=== PATIENT | female | born 1950 | race African-American/Black ===

== ENCOUNTER 2016-12-02 05:30 | Inpatient (IN) | payer OTHER ==
[2016-12-02] VITALS (25 sets, daily range): BP systolic 105–143; BP diastolic 54–85; PULSE 68–94; RESP 12–27; Ht 165.1 cm; Wt 95.5 kg
[~2016-12-02] VITALS: Ht 165.1 cm; Wt 95.5 kg
[~2016-12-02 05:30] MED LIST: AMIT100T2 PO; FLUO40CA10; INSU100I28; INSU100V18 SQ; [UNRECOGNIZED DRUG - REMARK]
[2016-12-02] MEDS ORDERED: HYDROmorphONE 1 MG/ML SYG IV STA (05:42)
[2016-12-02] MEDS ORDERED: ONDANSETRON 4 MG INJ IV STA (05:42)
[2016-12-02 06:10] LABS: ADD SCAN DIFF NO
[2016-12-02 06:16] LABS: BASOPHIL # 0.1 10^3/ul (0.0-0.1); EOSINOPHILS # 0.1 10^3/ul (0.0-0.5); HEMATOCRIT 41.7 % (37.0-47.0); HEMOGLOBIN 14.1 g/dl (12.0-16.0); LYMPHOCYTES # 2.7 10^3/ul (0.8-2.9); LYMPHOCYTES % 31.6 % (15.0-51.0); MEAN CORPUSCULAR HEMOGLOBIN 29.3 pg (29.0-33.0); MEAN CORPUSCULAR HGB CONC 33.8 g/dl (32.0-37.0); MEAN CORPUSCULAR VOLUME 86.7 fl (82.0-101.0); MEAN PLATELET VOLUME 9.9 fl (7.4-10.4); MONOCYTE # 0.5 10^3/ul (0.3-0.9); MONOCYTES % 6.1 % (0.0-11.0); NEUTROPHIL # 5.1 10^3/ul (1.6-7.5); NEUTROPHILS % 60.1 % (39.0-77.0); PLATELET COUNT 353 10^3/UL (140-415); RED BLOOD COUNT 4.81 10^6/ul (4.20-5.40); RED CELL DISTRIBUTION WIDTH 12.7 % (11.5-14.5); WHITE BLOOD COUNT 8.4 10^3/ul (4.8-10.8)
--- NOTE | 2016-12-02 06:16 | RADRPT ---
PROCEDURE: XR Chest. CLINICAL INDICATION: Chest Pain. TECHNIQUE: Portable single view of the chest COMPARISON: 11/03/2007 FINDINGS: The heart size is top normal with left ventricular prominence. Chronic calcification of the first r ib ends again seen. No acute infiltrate, pleural effusion, or significant edema. IMPRESSION: No definite acute disease. RPTAT: HLBE Claire Abel Physician Date Time Electronically viewed and signed by Claire Abel, Physician on 12/02/2016 06:16 GIAN/
[2016-12-02 06:23] LABS: INR 0.92; PROTIME 12.4 Sec (12.2-14.2)
[2016-12-02 06:24] LABS: PARTIAL THROMBOPLASTIN TIME 25.7 Sec (25.0-35.0)
[2016-12-02 06:25] LABS: ALBUMIN 3.4 g/dl (3.3-4.9); POTASSIUM 3.5 mmol/L (3.5-5.1)
[2016-12-02 06:27] LABS: BILIRUBIN,INDIRECT 0.2 mg/dl (0-1.1); BILIRUBIN,TOTAL 0.2 mg/dl (0.2-1.3); CREATININE 0.61 mg/dl (0.44-1.00)
[2016-12-02 06:28] LABS: ALBUMIN/GLOBULIN RATIO 1.06; TOTAL PROTEIN 6.6 g/dl (6.1-8.1)
[2016-12-02 06:42] LABS: TROPONIN-I 0.256 ng/ml (0.00-0.12)
[2016-12-02] MEDS ORDERED: ASPIRIN 325 MG TAB PO STA (06:42)
[2016-12-02] MEDS ORDERED: NITROGLYCERIN 2% 1 GM OINT PKT TD STA (06:42)
[2016-12-02] MEDS ORDERED: ENOXAPARIN 80 MG/0.8 ML SYG SC STA (06:42)
--- NOTE | 2016-12-02 06:55 | ERA ---
ER Documentation Chief Complaint Date/Time DATE: 12/02/16 TIME: 06:50 Chief Complaint left breast pain radiates to back x 3 days HPI This 66-year-old diabetic, hypertensive, high cholesterol, smoker who is complaining of 3 days of off and on the left breast pain that radiates to her left back and also radiates up her neck into both jaws. She has no pain currently. She gets no shortness of breath no diaphoresis no palpitations no nausea no weakness no syncope. When the pain comes the pain can last between 5 and 30 minutes. Is not brought on by anything and not relieved by anything. The pain is described as a pressure sensation ROS All systems reviewed and are negative except as per history of present illness. Medications Home Meds Reported Medications [Meds Current] No Conflict Check 02/27/12 Insulin Lispro (Humalog) 100 U/Ml Vial, 24 UNITS SQ TID 04/01/11 Amitriptyline Hcl* (Amitriptyline Hcl*) 100 Mg Tablet, 100 MG PO HS 04/01/11 Insulin Detemir* (Levemir*) 100 U/Ml Insuln.pen 03/12/11 Fluoxetine Hcl* (Prozac*) 40 Mg Capsule 12/14/09 Allergies Allergies: Coded Allergies: No Known Allergy (Verified , 02/27/12) PMhx/Soc History of Surgery: Yes (BREAST REDUCTION, RT FOOT, BACK/NECK, SHOULDER) Anesthesia Reaction: No Hx Neurological Disorder: No Hx Respiratory Disorders: No Hx Cardiac Disorders: No Hx Psychiatric Problems: Yes (DEPRESSION) Hx Miscellaneous Medical Probl: Yes ("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 Neck: Full range of motion. No meningismus, no lymphadenopathy. Resp: Clear to auscultation bilaterally, no wheezing, rhonchi, rales Cardio: Regular rate and rhythm, no murmurs, S1 S2 present Abd: Soft, non tender x 4, non distended. Normal bowel sounds, no guarding or rebound, no pulsitile abdominal masses or bruits Skin: No petechiae or rashes, no ecchymosis , no maculopapular rash Back: No midline or flank tenderness Ext: No cyanosis, or edema, FROM x 4, normal inspection, neurovascularly intact x 4 Neur: Awake and alert, STR 5/5 x 4, sensation intact x 4, no focal findings, cerebellum intact Psych: Normal Mood and Affect Result Diagram: 12/02/16 0550 12/02/16 0550 Results 24 hrs Laboratory Tests Test 12/02/16 05:50 Activated Partial Thromboplast Time 25.7Sec Alanine Aminotransferase (ALT/SGPT) 25IU/L Albumin 3.4g/dl Albumin/Globulin Ratio 1.06 Alkaline Phosphatase 115IU/L Anion Gap 15 Aspartate Amino Transf (AST/SGOT) 28IU/L B-Type Natriuretic Peptide 882PG/ML Basophils # 0.110^3/ul Basophils % 1.0% Blood Urea Nitrogen 10mg/dl Calcium Level 9.0mg/dl Carbon Dioxide Level 29mmol/L Chloride Level 104mmol/L Creatinine 0.61mg/dl Direct Bilirubin 0.00mg/dl Eosinophils # 0.110^3/ul Eosinophils % 1.0% Globulin 3.20g/dl Glucose Level 242mg/dl Hematocrit 41.7% Hemoglobin 14.1g/dl INR International Normalized Ratio 0.92 Indirect Bilirubin 0.2mg/dl Lymphocytes # 2.710^3/ul Lymphocytes % 31.6% Mean Corpuscular Hemoglobin 29.3pg Mean Corpuscular Hemoglobin Concent 33.8g/dl Mean Corpuscular Volume 86.7fl Mean Platelet Volume 9.9fl Monocytes # 0.510^3/ul Monocytes % 6.1% Neutrophils # 5.110^3/ul Neutrophils % 60.1% Nucleated Red Blood Cells # 0.010^3/ul Nucleated Red Blood Cells % 0.0/100WBC Platelet Count 77745^3/UL Potassium Level 3.5mmol/L Prothrombin Time 12.4Sec Prothrombin Time Ratio 1.0 Red Blood Count 4.8110^6/ul Red Cell Distribution Width 12.7% Sodium Level 144mmol/L Total Bilirubin 0.2mg/dl Total Protein 6.6g/dl Troponin I 0.256ng/ml White Blood Count 8.410^3/ul Current Medications Medications (Trade) Dose Ordered Sig/[place] Route PRN Reason Start Time Stop Time Status Last Admin Dose Admin Hydromorphone HCl (Dilaudid) 1 mg ONCE STAT IV 12/02/16 05:42 12/02/16 05:43 DC 12/02/16 06:01 Ondansetron HCl (Zofran Inj) 4 mg ONCE STAT IV 12/02/16 05:42 12/02/16 05:43 DC 12/02/16 06:01 Aspirin (Aspirin) 325 mg ONCE STAT PO 12/02/16 06:42 12/02/16 06:47 DC Nitroglycerin (Nitroglycerin 2% Oint) 1 inch ONCE STAT TD 12/02/16 06:42 12/02/16 06:47 DC Enoxaparin Sodium (Lovenox) 80 mg ONCE STAT SC 12/02/16 06:42 12/02/16 06:47 DC Procedures/MDM EKG: Rate/Rhythm: Normal sinus rhythm, bifascicular block QRS, ST, QT: NORMAL MS, wide QRS, QT] Impression: Abnormal l EKG PROCEDURE: XR Chest. CLINICAL INDICATION: Chest Pain. TECHNIQUE: Portable single view of the chest COMPARISON: 11/03/2007 FINDINGS: The heart size is top normal with left ventricular prominence. Chronic calcification of the first rib ends again seen. No acute infiltrate, pleural effusion, or significant edema. IMPRESSION: No definite acute disease. RPTAT: HLBE Physician Mini Date Time Electronically viewed and signed by Claire Abel Physician on 12/02/2016 06 :16 LE/ CC: DASHAWN RIVER The patient has elevated troponin. The patient will be admitted to the hospital and consult cardiology and undergo cardiac cath. EKG shows no acute myocardial infarction and the patient has no pain on presentation here. She has been treated with aspirin, nitroglycerin and Lovenox. Critical Care Time: 30 minutes Treatments/Evaluations: Close monitoring and treatment of unstable vital signs, cardiorespiratory, and neurologic status, while maintaining tight balance of fluid, respiratory, and cardiac interventions. This time includes discussing the case with the patient and the patient's family. This time does not include all procedures stated elsewhere in this record. This time also includes reviewing old records, labs and radiological studies. This time includes examining and re-examining the patient. Additionally, this time also includes arranging care with admitting and consulting physicians. Departure Diagnosis: Primary Impression: Non-ST elevated myocardial infarction Condition: RUIZ Bowles DO Dec 02, 2016 06:54
[2016-12-02] MEDS ORDERED: SOD CHLORIDE 0.9% 1,000 ML IV SCH ×2 (08:09→14:40)
[2016-12-02] MEDS ORDERED: ONDANSETRON 4 MG INJ IV PRN ×2 (08:30→15:00)
[2016-12-02] MEDS ORDERED: ACETAMINOPHEN 325 MG TAB PO PRN ×3 (08:30→15:00)
[2016-12-02] MEDS ORDERED: AMLO1CAP15 PO (10:36)
[2016-12-02] MEDS ORDERED: TEMA15CA6 PO (10:36)
[2016-12-02] MEDS ORDERED: ASPI-664 PO (10:36)
[2016-12-02] MEDS ORDERED: DULO20CA43 PO (10:37)
[2016-12-02] MEDS ORDERED: HYDR-902 PO (10:39)
[2016-12-02] MEDS ORDERED: LYRI100 PO (10:43)
[2016-12-02] MEDS ORDERED: ATOR20TA38 PO (10:43)
[2016-12-02] MEDS ORDERED: HYD25 PO (10:43)
[2016-12-02] MEDS ORDERED: LEVEM SC (10:44)
[2016-12-02] MEDS ORDERED: INSU100C SQ (10:45)
[2016-12-02] MEDS ORDERED: MORP30CA16 PO (10:46)
--- NOTE | 2016-12-02 11:29 | CONS ---
Date/Time of Note Date/Time of Note DATE: 12/02/16 TIME: 11:24 Assessment/Plan Assessment/Plan Additional Assessment/Plan Elevated troponin concerning for non-ST elevation CA Chest pain Diabetes Hypertension Active tobacco use Abnormal ECG -Patient with off and on symptoms of chest discomfort over the past 3-4 days which are of concern. Patient also with risk factors of tobacco use, diabetes and hypertension. Initial troponins are mildly elevated. Given her multiple risk factors, symptoms elevated troponin, would proceed with cardiac catheterization. The procedure was point the patient putting possible complications and risks and she agrees to proceed. Check echocardiogram, aspirin, statin, beta-zacarias. Consultation Date/Type/Reason Admit Date/Time Type of Consultation: cv Reason for Consultation Chest pain for 3-4 days Hx of Present Illness This is a 66-year-old female with past medical history of diabetes, hypertension who presents with chest discomfort. Symptoms have been off and on over the past 3-4 days. Pain feels occasionally pressure-like occasionally heavy, occasionally sharp. Pain goes up into her jaw and her arm. She does get occasional shortness of breath. She is not sure if activity helps or worsens her symptoms. She denies any dizziness or lightheadedness, abdominal pain, nausea. Because of the worsening symptoms, she came to the emergency room for evaluation and care. She is currently feeling better in the emergency room but still has mild chest discomfort. 12 point review of systems was performed with all pertinent positives and negatives mentioned above and all else is negative Past Medical History Medical History: diabetes, high cholesterol, hypertension Family History Significant Family History: no pertinent family hx Social History Alcohol Use: none Smoking Status: Current every day smoker Drug Use: none Exam/Review of Systems Vital Signs Vitals Vital Signs Date Time Temp Pulse Resp B/P Pulse Ox O2 Delivery O2 Flow Rate FiO2 12/02/16 11:09 78 14 129/75 93 Room Air 12/02/16 06:02 2 12/02/16 05:39 98.1 Exam No apparent distress Constitutional: alert, obese, oriented Head: normocephalic Neck: supple Respiratory: other (Coarse breath sounds bilaterally, no wheezing) Cardiovascular: other (S1-S2 heard), regular rate and rhythm Gastrointestinal: bowel sounds, non-tender, other (No guarding), soft Extremities: other (No edema or cyanosis) Results Result Diagram: 12/02/16 0550 12/02/16 0550 Results 24 hrs Laboratory Tests Test 12/02/16 05:50 White Blood Count 8.4 Red Blood Count 4.81 Hemoglobin 14.1 Hematocrit 41.7 Mean Corpuscular Volume 86.7 Mean Corpuscular Hemoglobin 29.3 Mean Corpuscular Hemoglobin Concent 33.8 Red Cell Distribution Width 12.7 Platelet Count 353 Mean Platelet Volume 9.9 Neutrophils % 60.1 Lymphocytes % 31.6 Monocytes % 6.1 Eosinophils % 1.0 Basophils % 1.0 Nucleated Red Blood Cells % 0.0 Neutrophils # 5.1 Lymphocytes # 2.7 Monocytes # 0.5 Eosinophils # 0.1 Basophils # 0.1 Nucleated Red Blood Cells # 0.0 Prothrombin Time 12.4 Prothrombin Time Ratio 1.0 INR International Normalized Ratio 0.92 Activated Partial Thromboplast Time 25.7 Sodium Level 144 Potassium Level 3.5 Chloride Level 104 Carbon Dioxide Level 29 Anion Gap 15 Blood Urea Nitrogen 10 Creatinine 0.61 Glucose Level 242 H Calcium Level 9.0 Total Bilirubin 0.2 Direct Bilirubin 0.00 Indirect Bilirubin 0.2 Aspartate Amino Transf (AST/SGOT) 28 Alanine Aminotransferase (ALT/SGPT) 25 Alkaline Phosphatase 115 Troponin I 0.256 *H B-Type Natriuretic Peptide 882 H Total Protein 6.6 Albumin 3.4 Globulin 3.20 Albumin/Globulin Ratio 1.06 Medications Medications Current Medications Sodium Chloride (NS) 1,000 ml @ 80 mls/hr [id number] IV Last administered on 12/02t 08:39; Admin Dose 80 MLS/HR; Start 12/02/16 at 08:09; Stop 12/02/16 at 20: 38 Procedures Procedures ECG demonstrates sinus rhythm at 91 bpm, right bundle branch block, left anterior fascicular block, anteroseptal Q waves, left ventricular hypertrophy, nonspecific STT wave abnormalities Manuel Escudero DO Dec 02, 2016 11:29
[2016-12-02] MEDS ORDERED: HEPARIN 1000 UNITS/ML 10 ML INJ ONE (12:28)
[2016-12-02] MEDS ORDERED: FENTAnyl 50 MCG/ML VIAL ONE ×2 (12:28→13:55)
[2016-12-02] MEDS ORDERED: LIDOCAINE 1% (MDV) 20 ML INJ ONE (12:28)
[2016-12-02] MEDS ORDERED: IODIXANOL LOCM 100 ML BTL ONE (12:28)
[2016-12-02] MEDS ORDERED: IODIXANOL LOCM 50 ML BTL ONE (12:28)
[2016-12-02] MEDS ORDERED: MIDAZOLAM 1 MG/ML 2 ML INJ ONE ×2 (12:29→13:55)
[2016-12-02] MEDS ORDERED: VERAPAMIL 5 MG INJ ONE (12:29)
[2016-12-02] MEDS ORDERED: SOD CHLORIDE 0.9% 500 ML ONE (12:29)
[2016-12-02] MEDS ORDERED: NITROGLYCERIN (IC) 100 MCG/ML INJ ONE (12:29)
[2016-12-02] MEDS ORDERED: CEFAZOLIN 1 GM/50 ML (PMX) 50 ML IVPB ONE (14:18)
--- NOTE | 2016-12-02 14:56 | RADRPT ---
Echocardiogram Report Patient Name: KARRI TAVERAS Gender: Female Date: 1950 Study Date: 02-Dec-2016 Shot Examiner: Sandra Barros RDCS Location: [facility] Ref. Physician: MANUEL GARCÍA Quality: Adequate Procedures: Transthoracic echocardiogram with complete 2D, M-Mode, and doppler examination. Indications: Elevated Troponin. Chest Pain. 2D/M Mode Doppler Measurement Value Normal Ranges Measurement Value Normal Ranges LVIDd 2D 5.1 3.5 - 5.6 cm AV Peak Simón 1.5 m/sec LVIDs 2D 2.8 2.1 - 4.1 cm AV Peak PG 9.0 mmHg FS 2D 44.5 % LVOT Peak Simón 1.0 m/sec LVPWd 2D 1.0 0.6 - 1.1 cm LVOT Peak PG 4.0 mmHg IVSd 2D 1.0 0.6 - 1.1 cm MV E Peak Simón 0.6 m/sec IVS/LVPW 2D 1.1 MV A Peak Simón 1.3 m/sec AoR Diam 2D 2.6 2.0 - 3.7 cm MV E/A 0.5 LA/Ao 2D 1 0 - 1 MV PHT 79.0 msec EDV 2D 133.0 cm3 MV Peak Simón 1.9 m/sec ESV 2D 22.7 cm3 MV Peak PG 14.0 mmHg LA Dimen 2D 3.7 2.3 - 4.0 cm MV Mean Simón 1.1 m/sec MV Mean PG 6.0 mmHg MV Decel Time 268 msec MV Decel Caswell 2 MV E/A 0.5 MV PHT Peak Ismón 0.6 m/sec MV PHT 79.0 msec MV VTI 43.7 cm MVA PHT 2.8 cm2 TR Peak Simón 2.6 m/sec TR Peak PG 26.0 mmHg RVSP 29.0 mmHg Findings Left Ventricle: Lower limits of normal systolic function. Normal left ventricular cavity size. Normal left ventricular wall thickness. Ejection fraction is visually estimated at 50 %. Tissue Doppler/Mitral Doppler indices are consistent with impaired relaxation (Stage I diastolic dysfunction). These segments of the LV are hypokinetic apex. Right Ventricle: Normal right ventricular size. Normal right ventricular systolic function. Left Atrium: The left atrium is normal in size. Right Atrium: The right atrium is normal in size. Mitral Valve: Mild mitral leaflet calcification. Moderate mitral annular calcification. Trace mitral regurgitation. Mild mitral stenosis. Mitral valve Max Velocity 1.89 m/sec. MaxPG 14.00 mmHg. MeanPG 6.00 mmHg. Aortic Valve: No significant aortic stenosis or insufficiency. Aortic cusps appear mildly calcified. Tricuspid Valve: Normal appearance of the tricuspid valve. Estimated peak PA systolic pressure 29 mmHg. There is trace tricuspid regurgitation. Pulmonic Valve: Normal pulmonic valve appearance. Pericardium: Normal pericardium with no significant pericardial effusion. Aorta: Normal aortic root. IVC: Normal size and normal respiratory collapse consistent with normal right atrial pressure. Conclusions Lower limits of normal systolic function. Normal left ventricular cavity size. Normal left ventricular wall thickness. Ejection fraction is visually estimated at 50 %. Tissue Doppler/Mitral Doppler indices are consistent with impaired relaxation (Stage I diastolic dysfunction). Normal right ventricular size. Normal right ventricular systolic function. The left atrium is normal in size. The right atrium is normal in size. Trace mitral regurgitation. Mild mitral stenosis. No significant aortic stenosis or insufficiency. Estimated peak PA systolic pressure 29 mmHg. There is trace tricuspid regurgitation. Normal pericardium with no significant pericardial effusion. Electronically Signed By: Manuel García 02-Dec-2016 14:56:11 -0700 Patient Name: KARRI TAVERAS Study Date: 02-Dec-2016 [id number]
[2016-12-02] MEDS ORDERED: HYDROCODONE/APAP (10/325) TAB PO PRN (15:00)
[2016-12-02] MEDS ORDERED: AL HYDROX/MG HYDROX/SIMETH 30 ML CUP PO PRN (15:00)
[2016-12-02] MEDS ORDERED: DOCUSATE SODIUM 100 MG CAP PO PRN (15:00)
[2016-12-02] MEDS ORDERED: ONDANSETRON 4 MG TAB PO PRN (15:00)
[2016-12-02] MEDS ORDERED: NITROGLYCERIN (SL) 0.4 MG TAB SL PRN (15:00)
[2016-12-02] MEDS ORDERED: ASPIRIN (EC) 81 MG TAB PO SCH (15:00)
[2016-12-02] MEDS ORDERED: LORAZEPAM 2 MG INJ IV PRN (15:00)
[2016-12-02] MEDS ORDERED: NACL 0.9% 3 ML SYG IV SCH (15:00)
[2016-12-02] MEDS ORDERED: ACETAMINOPHEN 650 MG SUPP PR PRN (15:00)
--- NOTE | 2016-12-02 15:06 | CARRPT ---
DATE OF PROCEDURE: 12/02/2016 PROCEDURES: 1. Left heart catheterization. 2. Right and left coronary angiogram. 3. Interpretation and supervision of right and left coronary angiogram. 4. Left ventricular pressure measurements. 5. Left radial artery approach. PATIENT HISTORY: This is a 66-year-old female who presents with chest pain and elevated troponin, concerning for non-ST elevation myocardial infarction. FINDINGS: HEMODYNAMICS: 1. LV pressure was 124/0 with EDP of 10. 2. Aortic pressure was 117/70. CORONARY FINDINGS: 1. Left main is a large caliber vessel with no significant disease. 2. Circumflex is a medium to large caliber vessel and appears codominant. There is a mid 20% stenosis. 3. LAD is a medium caliber vessel and appears under filled. In the mid segment , there is a 90% area of stenosis. The first diagonal is a medium caliber vessel and has an ostial 90% stenosis. 4. RCA is a medium caliber vessel and is codominant. There is a mid 50% to 60 % stenosis. There are collaterals going from the RCA to the LAD. DESCRIPTION OF PROCEDURE: The patient brought to pharmacy laboratory technician after informed consent. The patient was prepped and draped as per protocol. Left radial access was obtained. The patient with recurrent movements throughout the procedure requiring increased sedation and difficulty lying still for the procedure. A 5/6-Kenyan sheath was placed in the left radial artery. A 5- Kenyan JL3.5 diagnostic catheter was used to engage the left main. Angiogram was performed. We next used a 5-Kenyan JR4 catheter into the left ventricle. Pressure measurements were obtained as well as pullback. RCA and angiogram was performed. The patient with multivessel disease, diabetic, hypertensive and active smoker. The patient would benefit from surgical coronary revascularization. All catheters and wires were removed. The patient was transferred to recovery in stable condition with no immediate complications. DIAGNOSES: 1. Obstructive coronary artery disease. 2. Myocardial infarction. COMPLICATIONS: None. ESTIMATED BLOOD LOSS: Minimal. RECOMMENDATIONS: CT surgery evaluation. Dictated By: ARLENE CHAU/[place] Conf#: [id number] DID#: [id number] [facility] MEDICAL CENTERJanice
--- NOTE | 2016-12-02 15:45 | RADRPT ---
PROCEDURE: US Carotids. CLINICAL INDICATION: bruit , pre-cabg TECHNIQUE: Multiple sonographic of the carotid bifurcation region and vertebral arteries were obta ined utilizing paredes scale, duplex and color-flow imaging. The images were reviewed on a PACS worksta tion. COMPARISON: No prior studies are available for comparison. FINDINGS: Evaluation of the right carotid bifurcation region reveals minimal calcific atherosclerotic disease. Evaluation of the left carotid bifurcation region reveals minimal calcific atherosclerotic disease. There is antegrade flow within the vertebral arteries bilaterally. RIGHT CAROTID MEASUREMENTS: Common Carotid Opoxzk04.5 (cm/sec) Internal Carotid Artery - hlkyewfu04.2 (cm/sec) Internal Carotid Artery - mid52.3 (cm/sec) Internal Carotid Artery - (cm/sec) Internal Carotid/Common Carotid1.31 LEFT CAROTID MEASUREMENTS: Common Carotid Mnaolb58.9 (cm/sec) Internal Carotid Artery - .2 (cm/sec) Internal Carotid Artery - mid53.1 (cm/sec) Internal Carotid Artery - uyycdz25 (cm/sec) Internal Carotid/Common Carotid0.66 RPTAT: AA IMPRESSION: No evidence for hemodynamically significant stenosis in the bilateral internal carotid arteries - va lidated velocity measurements with angiographic measurements, velocity criteria are extrapolated fro m diameter data as defined by the Society of Radiologists in Ultrasound Consensus Conference Radiolo gy 2003; 229;340-346. This study does indirectly reference the measurement of the distal ICA diamet er as the denominator for stenosis measurement. Normal antegrade flow in the vertebral arteries bilaterally. .Jere Peguero MD, MD Date Time Electronically viewed and signed by .Jere Peguero MD, on 12/02/2016 15:45 .S/
[2016-12-02] MEDS ORDERED: HEPARIN 25000 UNITS/250 ML 250 ML IV SCH (16:00)
[2016-12-02] MEDS ORDERED: HEPARIN 1000 UNITS/ML 10 ML INJ IV PRN (16:00)
[2016-12-02 16:05] LABS: CK-MB 4.64 ng/ml (0.0-2.4)
--- NOTE | 2016-12-02 16:56 | HP ---
DATE OF ADMISSION: 12/02/2016 CONSULTANTS: 1. Dr. Manuel Escudero 2. Dr. Sundar Larose. CHIEF COMPLAINT: Chest pain. HISTORY OF PRESENT ILLNESS: This is a pleasant 66-year-old female with past medical history of hype rtension, coronary artery disease, dyslipidemia, major depression, diabetes mellitus, chronic pain s yndrome, neuropathy, insomnia, obesity, and nicotine dependency who has been in her normal state of health, although patient has been having difficulty with ambulation for the past several months. Shyanne willson presented to [facility] ER and stated having chest discomfort for the past 3 days. The p ain radiates to her back, also to her neck and her jaw. Patient denies having any shortness of jim th, diaphoresis or palpitations, no nausea, vomiting, diarrhea or syncope associated with this chest pain. The patient presented to [facility] ER secondary to pain worsened this morning and lasted longer than usual. She called 911 and the patient was brought into the [facility] E R where an EKG was obtained which showed normal sinus syndrome, bifascicular block , normal PA, wide QRS. The patient's troponin was found to be elevated at 0.256. Cardiology was consulted. From Em ergency Room, there patient was taken to cardiac catheterization lab, where she was found to have ob structed coronary artery disease and was found to have 20% stenosis at circumflex, 90% stenosis in LAD and 50% to 60% stenosis in RCA. At this time, the patient has been transferred to recovery room . She denies any chest pain, shortness of breath, nausea, vomiting, diarrhea. No headache, dizzine ss, or any other discomfort. PAST MEDICAL AND SURGICAL HISTORY: As above per HPI. MEDICATIONS: 1. Amlodipine. 2. Benazepril. 3. Aspirin. 4. Lipitor. 5. Cymbalta 6. Hydrochlorothiazide. 7. Robinson. 8. Levemir. 9. Insulin lispro. 10. Morphine sulfate. 11. Lyrica. 12. Restoril. ALLERGIES: NO KNOWN DRUG ALLERGIES. FAMILY HISTORY: Positive for coronary artery disease, hypertension, diabetes mellitus. SOCIAL HISTORY: She smokes a pack of cigarettes per day. No alcohol, no illicit drugs. She lives at home alone. She is dependent on others for shopping and cooking, although she gets around with a walker. REVIEW OF SYSTEMS: As above per HPI. She denies any fever, chills, weight gain, weight loss, anore ryann. Positive for chest pain. No palpitations, no edema, no orthopnea. No change in visual acuity , diplopia, photophobia. No abdominal pain. No headache, dizziness. No neck pain, no restricted r lidia of motion in upper and lower extremity. No hair loss or any other discomfort except what was s tated above. PHYSICAL EXAMINATION: VITAL SIGNS: Temperature 98.0, pulse 76, respiration 24, blood pressure 129/81, oxygen 98% on 3 lit ers via nasal cannula. GENERAL APPEARANCE: The patient is lying in bed comfortably without any distress. She is awake, a lert, oriented. She is able to answer my questions properly. Body habitus is morbidly obese with B LA 29.5. NECK: Supple. Trachea is midline. No lymphadenopathy. EYES AND ENT: Conjunctivae and lids are normal. Pupils are normal. Extraocular normal. Hearing g rossly normal. Lips, teeth and gums are normal. Oral mucosa is moist. NECK: Supple. Trachea is midline. No lymphadenopathy. RESPIRATORY Effort is normal. Clear to auscultation bilaterally. CARDIOVASCULAR: Normal S1, S2. Regular rhythm and rate. No murmur, no bruits, no edema. Peripher al pulses, radial pulses palpable. Cap refill is normal. CHEST: Normal expansion of thorax during inspiration. GASTROINTESTINAL: Abdomen is soft, nontender, not distended. Bowel sounds present. No guarding, r ebound. GENITOURINARY: Deferred. MUSCULOSKELETAL: Upper and lower extremities within normal limits. Full range of motion. Strength is 5/5 in both upper and lower extremities. NEUROLOGIC: Cranial nerves II through XII are grossly intact. PSYCHIATRIC: Normal judgment and insight. Alert and oriented x3. Mood and affect is normal. LABORATORY WORK AND IMAGING: Sodium 144, potassium 3.5, chloride 104, bicarbonate 29, BUN 10, creat inine 0.61, glucose 242, calcium 9.0, troponin 0.256. BNP 882, WBC 8.4, hemoglobin 14.1, hematocrit 41.7, platelets 353. EKG as above per HPI. ASSESSMENT AND PLAN: 1. Non-ST elevation myocardial infarction. The patient is status post left heart catheterization w ith a finding of multivessel coronary artery disease. Cardiothoracic surgeon has been consulted. 2. Obstructive coronary artery disease as above. Cardiothoracic surgeon has been consulted. 3. Essential hypertension, well controlled on medical management. 4. Dyslipidemia. Continue statin. 5. Major depression. Continue Cymbalta. 6. Diabetes mellitus. Continue insulin sliding scale, low carb diet. 7. Diabetic neuropathy. Continue Lyrica. 8. For deep venous thrombosis prophylaxis, the patient has been started on heparin. 9. For gastrointestinal prophylaxis, on proton pump inhibitor. 10. We will continue to monitor patient closely. Further recommendations, management and treatment as per clinical course. Dictated By: NAHUM HONG/[place] Conf#: [id number] DID#: [id number]
[2016-12-02] MEDS ORDERED: ZOLPIDEM 5 MG TAB PO PRN (17:00)
[2016-12-02 17:15] LABS: TROPONIN-I 25.3 ng/ml (0.00-0.12)
[2016-12-02] MEDS ORDERED: GLUCAGON 1 MG INJ IM PRN (18:30)
[2016-12-02] MEDS ORDERED: GLUCOSE GEL 15 GRAM TUBE BUCCAL PRN (18:30)
[2016-12-02] MEDS ORDERED: DEXTROSE 50% 50 ML SYRINGE IV PRN (18:30)
[2016-12-02] MEDS ORDERED: GLUCOSE GEL 15 GRAM TUBE PO PRN ×2 (18:30)
[2016-12-02 18:40] LABS: ADD SCAN DIFF NO
[2016-12-02 18:43] LABS: BASOPHIL # 0.1 10^3/ul (0.0-0.1); BASOPHILS % 0.8 % (0.0-2.0); EOSINOPHILS # 0.2 10^3/ul (0.0-0.5); HEMATOCRIT 38.4 % (37.0-47.0); HEMOGLOBIN 12.4 g/dl (12.0-16.0); LYMPHOCYTES # 4.1 10^3/ul (0.8-2.9); LYMPHOCYTES % 44.2 % (15.0-51.0); MEAN CORPUSCULAR HEMOGLOBIN 28.5 pg (29.0-33.0); MEAN CORPUSCULAR HGB CONC 32.3 g/dl (32.0-37.0); MEAN CORPUSCULAR VOLUME 88.3 fl (82.0-101.0); MEAN PLATELET VOLUME 9.8 fl (7.4-10.4); MONOCYTE # 0.6 10^3/ul (0.3-0.9); MONOCYTES % 6.2 % (0.0-11.0); NEUTROPHIL # 4.3 10^3/ul (1.6-7.5); NEUTROPHILS % 46.6 % (39.0-77.0); PLATELET COUNT 317 10^3/UL (140-415); RED BLOOD COUNT 4.35 10^6/ul (4.20-5.40); RED CELL DISTRIBUTION WIDTH 13.1 % (11.5-14.5); WHITE BLOOD COUNT 9.2 10^3/ul (4.8-10.8)
[2016-12-02 18:57] LABS: INR 0.93; PROTIME 12.5 Sec (12.2-14.2)
[2016-12-02 18:58] LABS: PARTIAL THROMBOPLASTIN TIME 48.7 Sec (25.0-35.0)
[2016-12-02 19:00] LABS: CK-MB 41.6 ng/ml (0.0-2.4)
[2016-12-02 19:07] LABS: TROPONIN-I 22.9 ng/ml (0.00-0.12)
--- NOTE | 2016-12-02 19:51 | CONS ---
DATE OF ADMISSION: 12/02/2016 DATE OF CONSULTATION: REASON FOR CONSULTATION: Coronary artery disease and myocardial infarction. HISTORY OF PRESENT ILLNESS: This is a 66-year-old female with a history of hypertension, coronary a rtery disease, dyslipidemia, major depression, diabetes, chronic pain syndrome, obesity, nicotine de pendency. The patient was admitted because of difficulty ambulating, came to the emergency room com plaining of pain in the back and the chest and part of her workup included a troponin level which came back at 25. The patient is no w chest pain free. The patient underwent a coronary angiogram today which was positive for a 2-vess el coronary artery disease involving the LAD proximally which also involved the proximal diagonal br anch and also right coronary artery, about 50% to 60% stenosis in the right coronary artery and 90% stenosis in the diagonal branch and the LAD. At that time, left ventricular end-diastolic pressure was 10 mmHg. The patient has also had an echocardiogram which showed normal left ventricular functi on and cavity size and ejection fraction about 50%. No significant aortic insufficiency, peak pulmo nary pressures were about 29 mmHg. No pericarditis. Mild mitral stenosis, and trace mitral regurgi tation. Patient is now in the intensive care unit on Lovenox and aspirin. PAST MEDICAL HISTORY: As above, which includes hypertension, hyperlipidemia, diabetes, obesity, ari ropathy, insomnia, coronary artery disease, dyslipidemia, major depression, hepatitis C. MEDICATIONS: List reviewed. ALLERGIES: NONE. SOCIAL HISTORY: No smoking, drinking or drug use. REVIEW OF SYSTEMS: As per HPI. PHYSICAL EXAMINATION: VITAL SIGNS: Blood pressure is 105/54, pulse is 84, respirations 18, saturation is 99% on 2 liters. GENERAL: The patient has no chest pain. CARDIOVASCULAR: Regular rate and rhythm, normal S1, S2. No murmurs, gallops or rubs. LUNGS: Clear to auscultation and palpation bilaterally. ABDOMEN: Soft, nontender, nondistended. EXTREMITIES: Warm. LABORATORY VALUES: Hemoglobin 14.1, white count 8.4, platelet count 353. INR is 1 and a creatinine of 0.6 with a troponin of 22.9. IMPRESSION: 1. Coronary artery disease. 2. Status post myocardial infarction. 3. Hepatitis C, by report. RECOMMENDATIONS: We will get a carotid duplex and a lower extremity duplex to evaluate the saphenou s veins. We will proceed with coronary artery bypass grafting. Discussed with the patient. All qu estions answered. Dictated By: RENETTA MILLS/[place] Conf#: [id number] DID#: [id number]
[2016-12-02] MEDS ORDERED: INSULIN DETEMIR [LEVEMIR] 3ML CART SC SCH (20:00)
[2016-12-02] MEDS: ATORVASTATIN 80 MG TAB PO SCH (20:13)
[2016-12-02] MEDS: PREGABALIN 25 MG CAP PO SCH (20:13)
[2016-12-02] MEDS: INSULIN ASPART [NOVOLOG] 3 ML PEN SC SCH (20:46)
[2016-12-02] MEDS ORDERED: ATORVASTATIN 20 MG TAB PO SCH (21:00)
[2016-12-02] MEDS ORDERED: ATORVASTATIN 40 MG TAB PO SCH (21:00)
[2016-12-02] MEDS ORDERED: PREGABALIN 100 MG CAP PO SCH (21:00)
[2016-12-02] MEDS ORDERED: morphine (ER) 30 MG TAB PO SCH (22:00)
[2016-12-02] MEDS: morphine (ER) 15 MG TAB PO SCH (22:31)
[2016-12-02] MEDS: ENOXAPARIN 100 MG/ML SYG SC SCH (22:32)
[2016-12-02 23:28] LABS: CK-MB 29.4 ng/ml (0.0-2.4)
[2016-12-02 23:47] LABS: TROPONIN-I 17.1 ng/ml (0.00-0.12)
[2016-12-03] VITALS (24 sets, daily range): BP systolic 88–144; BP diastolic 55–98; PULSE 82–100; RESP 13–31
[2016-12-03] MEDS: ACCU-CHEK XX SCH (02:17)
[2016-12-03] MEDS: PANTOPRAZOLE (EC) 40 MG TAB PO SCH (05:58)
[2016-12-03] MEDS: morphine (ER) 15 MG TAB PO SCH ×3 (05:59→22:55)
[2016-12-03 08:11] LABS: ADD SCAN DIFF NO
[2016-12-03] MEDS: INSULIN ASPART [NOVOLOG] 3 ML PEN SC SCH ×4 (08:17→21:02)
[2016-12-03] MEDS: ENOXAPARIN 100 MG/ML SYG SC SCH ×2 (08:18→20:52)
[2016-12-03] MEDS: PREGABALIN 25 MG CAP PO SCH ×2 (08:18→21:08)
[2016-12-03] MEDS: DULOXETINE 20 MG CAP DR PO SCH (08:19)
[2016-12-03] MEDS: ASPIRIN 81 MG TAB PO SCH (08:19)
[2016-12-03 08:20] LABS: BASOPHIL # 0.1 10^3/ul (0.0-0.1); BASOPHILS % 0.5 % (0.0-2.0); EOSINOPHILS # 0.1 10^3/ul (0.0-0.5); EOSINOPHILS % 1.4 % (0.0-7.0); HEMATOCRIT 37.1 % (37.0-47.0); HEMOGLOBIN 11.9 g/dl (12.0-16.0); LYMPHOCYTES # 3.7 10^3/ul (0.8-2.9); LYMPHOCYTES % 40.2 % (15.0-51.0); MEAN CORPUSCULAR HEMOGLOBIN 28.8 pg (29.0-33.0); MEAN CORPUSCULAR HGB CONC 32.1 g/dl (32.0-37.0); MEAN CORPUSCULAR VOLUME 89.8 fl (82.0-101.0); MEAN PLATELET VOLUME 9.9 fl (7.4-10.4); MONOCYTE # 0.7 10^3/ul (0.3-0.9); NEUTROPHIL # 4.7 10^3/ul (1.6-7.5); NEUTROPHILS % 50.6 % (39.0-77.0); PLATELET COUNT 294 10^3/UL (140-415); RED BLOOD COUNT 4.13 10^6/ul (4.20-5.40); WHITE BLOOD COUNT 9.3 10^3/ul (4.8-10.8)
[2016-12-03 08:22] LABS: POTASSIUM 3.6 mmol/L (3.5-5.1)
[2016-12-03 08:25] LABS: CALCIUM 8.2 mg/dl (8.4-10.2); CREATININE 0.53 mg/dl (0.44-1.00)
[2016-12-03 08:26] LABS: CHOL/HDL RATIO 3.2 RATIO; MAGNESIUM 1.8 mg/dl (1.7-2.5)
[2016-12-03 08:56] LABS: THYROID STIMULATING HORMONE 0.409 MIU/L (0.465-4.680)
[2016-12-03] MEDS ORDERED: ENOXAPARIN 40 MG/0.4 ML SYG SC SCH (09:00)
[2016-12-03] MEDS ORDERED: AMLODIPINE 10 MG TAB PO SCH (09:00)
[2016-12-03] MEDS ORDERED: AMLODIPINE BENAZEPRIL XX SCH (09:00)
[2016-12-03] MEDS ORDERED: BENAZEPRIL 20 MG TAB PO SCH (09:00)
[2016-12-03] MEDS ORDERED: HYDROCHLOROTHIAZIDE 25 MG TAB PO SCH (09:00)
--- NOTE | 2016-12-03 09:20 | RADRPT ---
PROCEDURE: US Lower extremity Venous. CLINICAL INDICATION: Vein mapping , preoperative CABG TECHNIQUE: Multiple sonographic images of the bilateral lower extremity superficial venous system was obtained utilizing grayscale, color-flow, compressive sonography and doppler imaging with augmen tation. The images were reviewed on a PACS workstation. COMPARISON: None. FINDINGS: There are small bilateral varicose veins in the mid calf bilaterally. Measurements from the great saphenous veins were obtained. Right great saphenous vein was divided into eight segments with the first segment being more proxima l in the 8th segment more distal. Measurements were obtained as below in mm. 1. 5.5 mm 2. 4.1 mm 3. 3.5 mm 4. 3.0 mm 5. 2.3 mm 6. 1.9 mm 7. 2.5 mm 8. 3.2 mm Left great saphenous vein was divided into eight segments with the first segment being more proximal in the 8th segment more distal. Measurements were obtained as below in mm. 1. 5.7 mm 2. 3.9 mm 3. 3.6 mm 4. 4.4 mm 5. 3.2 mm 6. 2.3 mm 7. 3.9 mm 8. 2.5 mm . IMPRESSION: Bilateral greater saphenous vein mapping as described.. Small bilateral varicose veins in the mid calf bilaterally. RPTAT: AA .Jere Peguero MD, MD Date Time Electronically viewed and signed by .Jere Peguero MD, MD on 12/03/2016 09:20 .S/
--- NOTE | 2016-12-03 10:19 | PN ---
Date/Time of Note Date/Time of Note DATE: 12/03/16 TIME: 10:17 Assessment/Plan VTE Prophylaxis VTE Prophylaxis Intervention: LMWH Lines/Catheters IV [facility]from [facility] Saline Lock Urinary Cath still in place: No Assessment/Plan Chief Complaint/Hosp Course ASSESSMENT AND PLAN: 1. Non-ST elevation myocardial infarction. The patient is status post left heart catheterization with a finding of multivessel coronary artery disease. Cardiothoracic surgeon has been consulted for possible CABG, continue aspirin , Lovenox, statin and monitor blood pressure 2. Obstructive coronary artery disease as above. Cardiothoracic surgeon has been consulted. 3. Essential hypertension, well controlled on medical management. 4. Dyslipidemia. Continue statin. 5. Major depression. Continue Cymbalta. 6. Diabetes mellitus. Continue insulin sliding scale, low carb diet. 7. Diabetic neuropathy. Continue Lyrica. 8. For deep venous thrombosis prophylaxis, continue Lovenox 9. For gastrointestinal prophylaxis, on proton pump inhibitor. We will continue to monitor patient closely. Further recommendations, management and treatment as per clinical course. Problems: Subjective 24 Hr Interval Summary Free Text/Dictation Patient denies any chest pain shortness of breath Denies any abdominal discomfort No nausea vomiting diarrhea Exam/Review of Systems Vital Signs Vitals Vital Signs Date Time Temp Pulse Resp B/P Pulse Ox O2 Delivery O2 Flow Rate FiO2 12/03/16 08:00 89 12/03/16 08:00 Nasal Cannula 2.0 12/03/16 06:00 19 115/69 98 12/03/16 04:00 98.2 12/03/16 01:14 27 Intake and Output 12/02/16 12/02/16 12/03/16 15:00 23:00 07:00 Intake Total 363 ml 800 ml Output Total 0 ml 0 ml Balance 363 ml 800 ml Exam General: The patient is moderately overweight, Not in acute distress. HEENT: Atraumatic, normocephalic. The pupils are equal and round . Neck: Supple with full range of motion. Chest: Normal expansion of the thorax during inspiration Lungs: Clear to auscultation bilaterally Heart: Normal S1-S2, Regular rhythm and rate. Abdomen: Soft , nontender, nondistended , bowel sounds are present. Extremities: Normal to inspection, no edema no cyanosis Neurologic: Normal mental status,The patient is awake, alert and oriented . Results Result Diagram: 12/03/16 0800 12/03/16 0800 Results 24 hrs Laboratory Tests Test 12/02/16 15:56 12/02/16 16:20 12/02/16 18:20 12/02/16 20:12 Bedside Glucose 143 219 Creatine Kinase 745 #H 686 H Creatine Kinase Index 6.3 6.1 Creatinine Kinase MB (Mass) 47.00 H 41.60 H Troponin I 25.300 *H 22.900 *H White Blood Count 9.2 Red Blood Count 4.35 Hemoglobin 12.4 Hematocrit 38.4 Mean Corpuscular Volume 88.3 Mean Corpuscular Hemoglobin 28.5 L Mean Corpuscular Hemoglobin Concent 32.3 Red Cell Distribution Width 13.1 Platelet Count 317 Mean Platelet Volume 9.8 Neutrophils % 46.6 Lymphocytes % 44.2 Monocytes % 6.2 Eosinophils % 2.0 Basophils % 0.8 Nucleated Red Blood Cells % 0.0 Neutrophils # 4.3 Lymphocytes # 4.1 H Monocytes # 0.6 Eosinophils # 0.2 Basophils # 0.1 Nucleated Red Blood Cells # 0.0 Prothrombin Time 12.5 Prothrombin Time Ratio 1.0 INR International Normalized Ratio 0.93 Activated Partial Thromboplast Time 48.7 H Test 12/02/16 22:50 12/03/16 02:16 12/03/16 07:45 12/03/16 08:00 Creatine Kinase 641 H Creatine Kinase Index 4.6 Creatinine Kinase MB (Mass) 29.40 H Troponin I 17.100 *H Bedside Glucose 161 357 H White Blood Count 9.3 Red Blood Count 4.13 L Hemoglobin 11.9 L Hematocrit 37.1 Mean Corpuscular Volume 89.8 Mean Corpuscular Hemoglobin 28.8 L Mean Corpuscular Hemoglobin Concent 32.1 Red Cell Distribution Width 13.0 Platelet Count 294 Mean Platelet Volume 9.9 Neutrophils % 50.6 Lymphocytes % 40.2 Monocytes % 7.0 Eosinophils % 1.4 Basophils % 0.5 Nucleated Red Blood Cells % 0.0 Neutrophils # 4.7 Lymphocytes # 3.7 H Monocytes # 0.7 Eosinophils # 0.1 Basophils # 0.1 Nucleated Red Blood Cells # 0.0 Sodium Level 140 Potassium Level 3.6 Chloride Level 104 Carbon Dioxide Level 27 Anion Gap 13 Blood Urea Nitrogen 8 Creatinine 0.53 Glucose Level 253 H Calcium Level 8.2 L Magnesium Level 1.8 Triglycerides Level 151 H Cholesterol Level 123 LDL Cholesterol, Calculated 55 HDL Cholesterol 38 Cholesterol/HDL Ratio 3.2 Thyroid Stimulating Hormone (TSH) 0.409 L Medications Medications Current Medications Aspirin (Aspirin) 81 mg DAILY PO Last administered on 12/03/16 08:19; Admin Dose 81 MG; Start 12/03/16 at 09:00 Al Hydrox/Mg Hydrox/Simethicone (Mag-Al Plus) 30 ml Q4H PRN PO GASTROINTESTINAL UPSET; Start 12/02/16 at 15:00 Ondansetron HCl (Zofran Inj) 4 mg Q4H PRN IV NAUSEA AND/OR VOMITING; Start at 15:00 Duloxetine HCl (Cymbalta) 20 mg DAILY PO Last administered on 12/03/16 08:19; Admin Dose 20 MG; Start 12/03/16 at 09:00 Hydrochlorothiazide (Hydrochlorothiazide) 12.5 mg DAILY PO Last administered on 12/03/16 08:19; Admin Dose 12.5 MG; Start 12/03/16 at 09:00 Acetaminophen/ Hydrocodone Bitart ([place] (10/325)) 1 tab Q4H PRN PO PAIN; Start 12/02/16 at 15:00 Amlodipine Besylate (Norvasc) 10 mg DAILY PO Last administered on 12/03/16 08: 19; Admin Dose 10 MG; Start 12/03/16 at 09:00 Insulin Detemir (Levemir) 45 unit DAILY@20 SC Last administered on 12/02/16 21 :00; Admin Dose 45 UNIT; Start 12/02/16 at 20:00 Zolpidem Tartrate (Ambien) 5 mg HS PRN PO INSOMNIA; Start 12/02/16 at 17:00 Lorazepam (Ativan) 0.5 mg Q6H PRN IV ANXIETY; Start 12/02/16 at 15:00 Ondansetron HCl (Zofran Tab) 4 mg Q6H PRN PO NAUSEA AND/OR VOMITING; Start at 15:00 Nitroglycerin (Nitroglycerin (Sl Tab) 0.4 Mg) 1 tab Q5M PRN SL CHEST PAIN; Start 12/02/16 at 15:00 Acetaminophen (Tylenol Tab) 650 mg Q6H PRN PO PAIN LEVEL 1-3 OR FEVER; Start at 15:00 Acetaminophen (Tylenol Supp) 650 mg Q6H PRN DC PAIN LEVEL 1-3 OR FEVER; Start 12/02/16 at 15:00 Docusate Sodium (Colace) 100 mg Q12H PRN PO CONSTIPATION; Start 12/02/16 at 15: 00 Pantoprazole (Protonix Tab) 40 mg DAILY@06 PO Last administered on 12/03/16 05 :58; Admin Dose 40 MG; Start 12/03/16 at 06:00 Benazepril HCl (Lotensin) 40 mg DAILY PO Last administered on 12/03/16 08:18; Admin Dose 40 MG; Start 12/03/16 at 09:00 Diagnostic Test (Pha) (Accucheck) 1 ea 02 XX Last administered on 12/03/16 02: 17; Admin Dose 1 EA; Start 12/03/16 at 02:00 Miscellaneous Information 1 ea NOTE XX ; Start 12/02/16 at 18:30 Glucose (Glutose) 15 gm Q15M PRN PO DECREASED GLUCOSE; Start 12/02/16 at 18:30 Glucose (Glutose) 22.5 gm Q15M PRN PO DECREASED GLUCOSE; Start 12/02/16 at 18: 30 Dextrose (D50w Syringe) 25 ml Q15M PRN IV DECREASED GLUCOSE; Start 12/02/16 at 18:30 Dextrose (D50w Syringe) 50 ml Q15M PRN IV DECREASED GLUCOSE; Start 12/02/16 at 18:30 Glucagon (Glucagen) 1 mg Q15M PRN IM DECREASED GLUCOSE; Start 12/02/16 at 18:30 Glucose (Glutose) 15 gm Q15M PRN BUCCAL DECREASED GLUCOSE; Start 12/02/16 at 18 :30 Atorvastatin Calcium (Lipitor) 80 mg HS PO Last administered on 12/02/16 20:13 ; Admin Dose 80 MG; Start 12/02/16 at 21:00 Enoxaparin Sodium (Lovenox) 90 mg BID SC Last administered on 12/03/16 08:18; Admin Dose 90 MG; Start 12/02/16 at 23:00; Stop 12/03/16 at 21:00 Pregabalin (Lyrica) 75 mg BID PO Last administered on 12/03/16 08:18; Admin Dose 75 MG; Start 12/02/16 at 21:00 Morphine Sulfate (Ms Contin (Er)) 30 mg Q8H PO Last administered on 12/03/16t 05:59; Admin Dose 30 MG; Start 12/02/16 at 22:30 NAHUM BLAIR MD Dec 03, 2016 10:19
--- NOTE | 2016-12-03 11:32 | CONS ---
Date/Time of Note Date/Time of Note DATE: 12/03/16 TIME: 11:29 Assessment/Plan Assessment/Plan Additional Assessment/Plan Non-ST elevation [place] Multivessel coronary artery disease Cardiomyopathy with ejection fraction 50% Diabetes Hypertension Active tobacco use -Patient with multivessel disease, diabetes and cardiomyopathy. Patient to proceed with surgical revascularization. Would continue aspirin, statin and beta-zacarias at the current time. Continue Lovenox until surgery. Would hold diuretics and IAIN inhibitors at the current time given recent contrast use and patient planned for surgery in the next 24 hours. Continue ICU monitoring. Consultation Date/Type/Reason Admit Date/Time Dec 02, 2016 at 17:14 Initial Consult Date Type of Consultation: cv 24 HR Interval Summary Free Text/Dictation Denies further chest pain, shortness of breath or dizziness. Is feeling better Exam/Review of Systems Vital Signs Vitals Vital Signs Date Time Temp Pulse Resp B/P Pulse Ox O2 Delivery O2 Flow Rate FiO2 12/03/16 11:00 88 19 88/82 98 Nasal Cannula 2.0 12/03/16 08:00 98.2 12/03/16 01:14 27 Intake and Output 12/02/16 12/02/16 12/03/16 15:00 23:00 07:00 Intake Total 363 ml 800 ml Output Total 0 ml 0 ml Balance 363 ml 800 ml Exam No apparent distress Constitutional: alert, obese, oriented Head: normocephalic Neck: supple Respiratory: clear to auscultation, normal air movement Cardiovascular: other (S1-S2 heard), regular rate and rhythm Gastrointestinal: bowel sounds, non-tender, other (No guarding), soft Extremities: other (No edema or cyanosis) Results Result Diagram: 12/03/16 0800 12/03/16 0800 Results 24 hrs Laboratory Tests Test 12/02/16 15:56 12/02/16 16:20 12/02/16 18:20 12/02/16 20:12 Bedside Glucose 143 219 Creatine Kinase 745 #H 686 H Creatine Kinase Index 6.3 6.1 Creatinine Kinase MB (Mass) 47.00 H 41.60 H Troponin I 25.300 *H 22.900 *H White Blood Count 9.2 Red Blood Count 4.35 Hemoglobin 12.4 Hematocrit 38.4 Mean Corpuscular Volume 88.3 Mean Corpuscular Hemoglobin 28.5 L Mean Corpuscular Hemoglobin Concent 32.3 Red Cell Distribution Width 13.1 Platelet Count 317 Mean Platelet Volume 9.8 Neutrophils % 46.6 Lymphocytes % 44.2 Monocytes % 6.2 Eosinophils % 2.0 Basophils % 0.8 Nucleated Red Blood Cells % 0.0 Neutrophils # 4.3 Lymphocytes # 4.1 H Monocytes # 0.6 Eosinophils # 0.2 Basophils # 0.1 Nucleated Red Blood Cells # 0.0 Prothrombin Time 12.5 Prothrombin Time Ratio 1.0 INR International Normalized Ratio 0.93 Activated Partial Thromboplast Time 48.7 H Test 12/02/16 22:50 12/03/16 02:16 12/03/16 07:45 12/03/16 08:00 Creatine Kinase 641 H Creatine Kinase Index 4.6 Creatinine Kinase MB (Mass) 29.40 H Troponin I 17.100 *H Bedside Glucose 161 357 H White Blood Count 9.3 Red Blood Count 4.13 L Hemoglobin 11.9 L Hematocrit 37.1 Mean Corpuscular Volume 89.8 Mean Corpuscular Hemoglobin 28.8 L Mean Corpuscular Hemoglobin Concent 32.1 Red Cell Distribution Width 13.0 Platelet Count 294 Mean Platelet Volume 9.9 Neutrophils % 50.6 Lymphocytes % 40.2 Monocytes % 7.0 Eosinophils % 1.4 Basophils % 0.5 Nucleated Red Blood Cells % 0.0 Neutrophils # 4.7 Lymphocytes # 3.7 H Monocytes # 0.7 Eosinophils # 0.1 Basophils # 0.1 Nucleated Red Blood Cells # 0.0 Sodium Level 140 Potassium Level 3.6 Chloride Level 104 Carbon Dioxide Level 27 Anion Gap 13 Blood Urea Nitrogen 8 Creatinine 0.53 Glucose Level 253 H Calcium Level 8.2 L Magnesium Level 1.8 Triglycerides Level 151 H Cholesterol Level 123 LDL Cholesterol, Calculated 55 HDL Cholesterol 38 Cholesterol/HDL Ratio 3.2 Thyroid Stimulating Hormone (TSH) 0.409 L Medications Medications Current Medications Aspirin (Aspirin) 81 mg DAILY PO Last administered on 12/03/16t 08:19; Admin Dose 81 MG; Start 12/03/16 at 09:00 Al Hydrox/Mg Hydrox/Simethicone (Mag-Al Plus) 30 ml Q4H PRN PO GASTROINTESTINAL UPSET; Start 12/02/16 at 15:00 Ondansetron HCl (Zofran Inj) 4 mg Q4H PRN IV NAUSEA AND/OR VOMITING; Start at 15:00 Duloxetine HCl (Cymbalta) 20 mg DAILY PO Last administered on 12/03/16 08:19; Admin Dose 20 MG; Start 12/03/16 at 09:00 Hydrochlorothiazide (Hydrochlorothiazide) 12.5 mg DAILY PO Last administered on 12/03/16 08:19; Admin Dose 12.5 MG; Start 12/03/16 at 09:00 Acetaminophen/ Hydrocodone Bitart ([place] (10/325)) 1 tab Q4H PRN PO PAIN; Start 12/02/16 at 15:00 Amlodipine Besylate (Norvasc) 10 mg DAILY PO Last administered on 12/03/16 08: 19; Admin Dose 10 MG; Start 12/03/16 at 09:00 Zolpidem Tartrate (Ambien) 5 mg HS PRN PO INSOMNIA; Start 12/02/16 at 17:00 Lorazepam (Ativan) 0.5 mg Q6H PRN IV ANXIETY; Start 12/02/16 at 15:00 Ondansetron HCl (Zofran Tab) 4 mg Q6H PRN PO NAUSEA AND/OR VOMITING; Start at 15:00 Nitroglycerin (Nitroglycerin (Sl Tab) 0.4 Mg) 1 tab Q5M PRN SL CHEST PAIN; Start 12/02/16 at 15:00 Acetaminophen (Tylenol Tab) 650 mg Q6H PRN PO PAIN LEVEL 1-3 OR FEVER; Start at 15:00 Acetaminophen (Tylenol Supp) 650 mg Q6H PRN [place] PAIN LEVEL 1-3 OR FEVER; Start 12/02/16 at 15:00 Docusate Sodium (Colace) 100 mg Q12H PRN PO CONSTIPATION; Start 12/02/16 at 15: 00 Pantoprazole (Protonix Tab) 40 mg DAILY@06 PO Last administered on 12/03/16 05 :58; Admin Dose 40 MG; Start 12/03/16 at 06:00 Benazepril HCl (Lotensin) 40 mg DAILY PO Last administered on 12/03/16 08:18; Admin Dose 40 MG; Start 12/03/16 at 09:00 Diagnostic Test (Pha) (Accucheck) 1 ea 02 XX Last administered on 12/03/16 02: 17; Admin Dose 1 EA; Start 12/03/16 at 02:00 Miscellaneous Information 1 ea NOTE XX ; Start 12/02/16 at 18:30 Glucose (Glutose) 15 gm Q15M PRN PO DECREASED GLUCOSE; Start 12/02/16 at 18:30 Glucose (Glutose) 22.5 gm Q15M PRN PO DECREASED GLUCOSE; Start 12/02/16 at 18: 30 Dextrose (D50w Syringe) 25 ml Q15M PRN IV DECREASED GLUCOSE; Start 12/02/16 at 18:30 Dextrose (D50w Syringe) 50 ml Q15M PRN IV DECREASED GLUCOSE; Start 12/02/16 at 18:30 Glucagon (Glucagen) 1 mg Q15M PRN IM DECREASED GLUCOSE; Start 12/02/16 at 18:30 Glucose (Glutose) 15 gm Q15M PRN BUCCAL DECREASED GLUCOSE; Start 12/02/16 at 18 :30 Atorvastatin Calcium (Lipitor) 80 mg HS PO Last administered on 12/02/16 20:13 ; Admin Dose 80 MG; Start 12/02/16 at 21:00 Enoxaparin Sodium (Lovenox) 90 mg BID SC Last administered on 12/03/16 08:18; Admin Dose 90 MG; Start 12/02/16 at 23:00; Stop 12/03/16 at 21:00 Pregabalin (Lyrica) 75 mg BID PO Last administered on 12/03/16 08:18; Admin Dose 75 MG; Start 12/02/16 at 21:00 Morphine Sulfate (Ms Contin (Er)) 30 mg Q8H PO Last administered on 12/03/16 05:59; Admin Dose 30 MG; Start 12/02/16 at 22:30 Insulin Detemir (Levemir) 50 unit DAILY@20 SC ; Start 12/03/16 at 20:00 Manuel Escudero DO Dec 03, 2016 11:32
--- NOTE | 2016-12-03 19:53 | PN ---
Date/Time of Note Date/Time of Note DATE: 12/03/16 TIME: 19:52 Assessment/Plan Lines/Catheters IV Catheter Type (from Nrs): Saline Lock Stearns in Place (from Nrs): No Assessment/Plan Chief Complaint/Hosp Course IMPRESSION: 1. Coronary artery disease. 2. Status post myocardial infarction. 3. Hepatitis C, by report. 4 Hx IVDU RECOMMENDATIONS: We will get a carotid duplex and a lower extremity duplex to evaluate the saphenous veins. We will proceed with coronary artery bypass grafting tomorrow Discussed with the patient. All questions answered. Problems: Subjective 24 Hr Interval Summary Constitutional: improved Pain Control: mild Exam/Review of Systems Vital Signs Vitals Vital Signs Date Time Temp Pulse Resp B/P Pulse Ox O2 Delivery O2 Flow Rate FiO2 12/03/16 18:00 100 20 118/65 100 12/03/16 17:08 2.0 12/03/16 17:00 Room Air 12/03/16 16:00 98.4 12/03/16 01:14 27 Intake and Output 12/02/16 12/02/16 12/03/16 15:00 23:00 07:00 Intake Total 363 ml 800 ml Output Total 0 ml 0 ml Balance 363 ml 800 ml Exam Neck: non-tender, supple Respiratory: clear to auscultation, normal air movement Cardiovascular: nl pulses, regular rate and rhythm Gastrointestinal: nl liver, spleen, non-tender, soft Results Result Diagram: 12/03/16 0800 12/03/16 0800 MALERENETTA BAXTER MD Dec 03, 2016 19:53
[2016-12-03] MEDS ORDERED: INSULIN DETEMIR [LEVEMIR] 3ML CART SC SCH (20:00)
[2016-12-03] MEDS: ATORVASTATIN 80 MG TAB PO SCH (20:49)
[2016-12-04] VITALS (20 sets, daily range): BP systolic 89–134; BP diastolic 42–89; PULSE 77–115; RESP 13–25; TEMP 98–99
[2016-12-04] MEDS: ACCU-CHEK XX SCH ×3 (02:00→23:30)
[2016-12-04] MEDS: PANTOPRAZOLE (EC) 40 MG TAB PO SCH (06:00)
[2016-12-04] MEDS: morphine (ER) 15 MG TAB PO SCH ×3 (06:30→22:00)
[2016-12-04 06:31] LABS: ADD SCAN DIFF NO
[2016-12-04 06:38] LABS: BASOPHIL # 0.1 10^3/ul (0.0-0.1); BASOPHILS % 0.7 % (0.0-2.0); EOSINOPHILS # 0.2 10^3/ul (0.0-0.5); EOSINOPHILS % 2.4 % (0.0-7.0); HEMATOCRIT 37.4 % (37.0-47.0); HEMOGLOBIN 12.2 g/dl (12.0-16.0); LYMPHOCYTES # 4.6 10^3/ul (0.8-2.9); LYMPHOCYTES % 51.7 % (15.0-51.0); MEAN CORPUSCULAR HEMOGLOBIN 28.8 pg (29.0-33.0); MEAN CORPUSCULAR HGB CONC 32.6 g/dl (32.0-37.0); MEAN CORPUSCULAR VOLUME 88.4 fl (82.0-101.0); MONOCYTE # 0.6 10^3/ul (0.3-0.9); MONOCYTES % 6.8 % (0.0-11.0); NEUTROPHIL # 3.4 10^3/ul (1.6-7.5); NEUTROPHILS % 38.2 % (39.0-77.0); PLATELET COUNT 309 10^3/UL (140-415); RED BLOOD COUNT 4.23 10^6/ul (4.20-5.40); WHITE BLOOD COUNT 8.8 10^3/ul (4.8-10.8)
[2016-12-04 06:53] LABS: POTASSIUM 3.5 mmol/L (3.5-5.1)
[2016-12-04 06:55] LABS: CREATININE 0.58 mg/dl (0.44-1.00)
[2016-12-04 06:56] LABS: CALCIUM 8.7 mg/dl (8.4-10.2); MAGNESIUM 1.8 mg/dl (1.7-2.5); PROTIME 13.2 Sec (12.2-14.2)
[2016-12-04 06:57] LABS: PARTIAL THROMBOPLASTIN TIME 39.4 Sec (25.0-35.0)
[2016-12-04] MEDS: INSULIN ASPART [NOVOLOG] 3 ML PEN SC SCH ×4 (07:35→21:00)
--- NOTE | 2016-12-04 08:36 | RADRPT ---
PROCEDURE: Chest 1 views. CLINICAL INDICATION: Abnormal breath sounds, preop. TECHNIQUE: AP views of the chest was obtained. COMPARISON: December 02, 2016 FINDINGS: The heart is large. Scattered subsegmental atelectasis is seen in the left mid lung. No consolidatio ns are identified. No pneumothorax is seen. Osseous structures are intact. IMPRESSION: Cardiomegaly . Subsegmental atelectasis in the left mid lung. RPTAT: AA .Ole Garcia MD, Date Time Electronically viewed and signed by .Ole Garcia MD, on 12/04/2016 08:35 .P/
[2016-12-04] MEDS: DULOXETINE 20 MG CAP DR PO SCH (09:00)
[2016-12-04] MEDS: PREGABALIN 25 MG CAP PO SCH ×2 (09:00→21:00)
[2016-12-04] MEDS: ASPIRIN 81 MG TAB PO SCH (09:00)
--- NOTE | 2016-12-04 10:24 | PN ---
Date/Time of Note Date/Time of Note DATE: 12/04/16 TIME: 10:17 Assessment/Plan VTE Prophylaxis VTE Prophylaxis Intervention: LMWH Lines/Catheters IV C[facility]ter Type [facility]from [facility] [place] [facility] Urinary Cath still in place: No Assessment/Plan Chief Complaint/Hosp Course ASSESSMENT AND PLAN: 1. Non-ST elevation myocardial infarction. The patient is status post left heart catheterization with a finding of multivessel coronary artery disease. Cardiothoracic surgeon has been consulted for possible CABG, continue aspirin , Lovenox, statin and monitor blood pressure 2. Obstructive coronary artery disease as above. Cardiothoracic surgeon has been consulted. 3. Essential hypertension, well controlled on medical management. 4. Dyslipidemia. Continue statin. 5. Major depression. Continue Cymbalta. 6. Diabetes mellitus. Continue insulin sliding scale, low carb diet. 7. Diabetic neuropathy. Continue Lyrica. 8. For deep venous thrombosis prophylaxis, continue Lovenox 9. For gastrointestinal prophylaxis, on proton pump inhibitor. We will continue to monitor patient closely. Further recommendations, management and treatment as per clinical course. Problems: Subjective 24 Hr Interval Summary Free Text/Dictation Patient denies any chest pain or shortness of breath No nausea vomiting diarrhea N.p.o. for upcoming procedure Exam/Review of Systems Vital Signs Vitals Vital Signs Date Time Temp Pulse Resp B/P Pulse Ox O2 Delivery O2 Flow Rate FiO2 12/04/16 10:00 87 16 134/74 98 Room Air 12/04/16 08:00 98.0 12/04/16 02:22 21 12/03/16 17:08 2.0 Intake and Output 12/03/16 12/03/16 12/04/16 15:00 23:00 07:00 Intake Total 590 ml 792 ml Output Total 300 ml 550 ml 550 ml Balance 290 ml 242 ml -550 ml Exam General: The patient is moderately overweight, Not in acute distress. HEENT: Atraumatic, normocephalic. The pupils are equal and round . Neck: Supple with full range of motion. Chest: Normal expansion of the thorax during inspiration Lungs: Clear to auscultation bilaterally Heart: Normal S1-S2, Regular rhythm and rate. Abdomen: Soft , nontender, nondistended , bowel sounds are present. Extremities: Normal to inspection, no edema no cyanosis Neurologic: Normal mental status,The patient is awake, alert and oriented . Results Result Diagram: 3/24/17 0535 12/04/16 0535 Results 24 hrs Laboratory Tests Test 12/03/16 11:45 12/03/16 17:49 12/03/16 20:58 12/04/16 01:58 Bedside Glucose 144 235 H 263 H 165 Test 12/04/16 05:35 12/04/16 08:07 White Blood Count 8.8 Red Blood Count 4.23 Hemoglobin 12.2 Hematocrit 37.4 Mean Corpuscular Volume 88.4 Mean Corpuscular Hemoglobin 28.8 L Mean Corpuscular Hemoglobin Concent 32.6 Red Cell Distribution Width 13.0 Platelet Count 309 Mean Platelet Volume 10.0 Neutrophils % 38.2 L Lymphocytes % 51.7 H Monocytes % 6.8 Eosinophils % 2.4 Basophils % 0.7 Nucleated Red Blood Cells % 0.0 Neutrophils # 3.4 Lymphocytes # 4.6 H Monocytes # 0.6 Eosinophils # 0.2 Basophils # 0.1 Nucleated Red Blood Cells # 0.0 Prothrombin Time 13.2 Prothrombin Time Ratio 1.0 INR International Normalized Ratio 1.00 Activated Partial Thromboplast Time 39.4 H Sodium Level 145 H Potassium Level 3.5 Chloride Level 104 Carbon Dioxide Level 34 H Anion Gap 11 Blood Urea Nitrogen 10 Creatinine 0.58 Glucose Level 85 # Calcium Level 8.7 Magnesium Level 1.8 Free Thyroxine 1.03 Free Triiodothyronine (T3) pg/mL 3.15 Bedside Glucose 77 Medications Medications Current Medications Aspirin (Aspirin) 81 mg DAILY PO Last administered on 12/03/16 08:19; Admin Dose 81 MG; Start 12/03/16 at 09:00 Al Hydrox/Mg Hydrox/Simethicone (Mag-Al Plus) 30 ml Q4H PRN PO GASTROINTESTINAL UPSET; Start 12/02/16 at 15:00 Ondansetron HCl (Zofran Inj) 4 mg Q4H PRN IV NAUSEA AND/OR VOMITING; Start at 15:00 Duloxetine HCl (Cymbalta) 20 mg DAILY PO Last administered on 12/03/16 08:19; Admin Dose 20 MG; Start 12/03/16 at 09:00 Acetaminophen/ Hydrocodone Bitart ([place] (10/325)) 1 tab Q4H PRN PO PAIN; Start 12/02/16 at 15:00 Zolpidem Tartrate (Ambien) 5 mg HS PRN PO INSOMNIA; Start 12/02/16 at 17:00 Lorazepam (Ativan) 0.5 mg Q6H PRN IV ANXIETY; Start 12/02/16 at 15:00 Ondansetron HCl (Zofran Tab) 4 mg Q6H PRN PO NAUSEA AND/OR VOMITING; Start at 15:00 Nitroglycerin (Nitroglycerin (Sl Tab) 0.4 Mg) 1 tab Q5M PRN SL CHEST PAIN; Start 12/02/16 at 15:00 Acetaminophen (Tylenol Tab) 650 mg Q6H PRN PO PAIN LEVEL 1-3 OR FEVER Last administered on 12/03/16 12:40; Admin Dose 650 MG; Start 12/02/16 at 15:00 Acetaminophen (Tylenol Supp) 650 mg Q6H PRN [place] PAIN LEVEL 1-3 OR FEVER; Start 12/02/16 at 15:00 Docusate Sodium (Colace) 100 mg Q12H PRN PO CONSTIPATION; Start 12/02/16 at 15: 00 Pantoprazole (Protonix Tab) 40 mg DAILY@06 PO Last administered on 12/03/16 05 :58; Admin Dose 40 MG; Start 12/03/16 at 06:00 Diagnostic Test (Pha) (Accucheck) 1 ea 02 XX Last administered on 12/03/16 02: 17; Admin Dose 1 EA; Start 12/03/16 at 02:00 Miscellaneous Information 1 ea NOTE XX ; Start 12/02/16 at 18:30 Glucose (Glutose) 15 gm Q15M PRN PO DECREASED GLUCOSE; Start 12/02/16 at 18:30 Glucose (Glutose) 22.5 gm Q15M PRN PO DECREASED GLUCOSE; Start 12/02/16 at 18: 30 Dextrose (D50w Syringe) 25 ml Q15M PRN IV DECREASED GLUCOSE; Start 12/02/16 at 18:30 Dextrose (D50w Syringe) 50 ml Q15M PRN IV DECREASED GLUCOSE; Start 12/02/16 at 18:30 Glucagon (Glucagen) 1 mg Q15M PRN IM DECREASED GLUCOSE; Start 12/02/16 at 18:30 Glucose (Glutose) 15 gm Q15M PRN BUCCAL DECREASED GLUCOSE; Start 3/22/17 at 18 :30 Atorvastatin Calcium (Lipitor) 80 mg HS PO Last administered on 12/03/16 20:49 ; Admin Dose 80 MG; Start 12/02/16 at 21:00 Pregabalin (Lyrica) 75 mg BID PO Last administered on 12/03/16 21:08; Admin Dose 75 MG; Start 12/02/16 at 21:00 Morphine Sulfate (Ms Contin (Er)) 30 mg Q8H PO Last administered on 12/03/16 22:55; Admin Dose 30 MG; Start 12/02/16 at 22:30 Insulin Detemir (Levemir) 50 unit DAILY@20 SC Last administered on 12/03/16 20 :54; Admin Dose 50 UNIT; Start 12/03/16 at 20:00 NAHUM BLAIR MD Dec 04, 2016 10:24
[2016-12-04] MEDS: D5W-0.45 NACL + KCL 20 MEQ 1,000 ML IV SCH ×2 (11:12→22:02)
[2016-12-04] MEDS ORDERED: PAPAVERINE 60 MG INJ ONE (12:01)
[2016-12-04] MEDS ORDERED: HEPARIN 1000 UNITS/ML 10 ML INJ ONE ×4 (12:01→16:22)
[2016-12-04] MEDS ORDERED: VANCOMYCIN 1 GM INJ ONE (12:01)
[2016-12-04] MEDS ORDERED: THROMBIN 5000 UNIT VIAL ONE (12:01)
[2016-12-04] MEDS ORDERED: MIDAZOLAM 5 ML ONE ×3 (13:14→16:25)
[2016-12-04] MEDS ORDERED: ALBUMIN HUMAN 25% 300 ML ONE (13:17)
[2016-12-04] MEDS ORDERED: CA CHLORIDE 10% 10 ML SYRINGE ONE (13:18)
[2016-12-04] MEDS ORDERED: AMINOCAPROIC ACID 5 GM INJ ONE ×4 (13:18→18:16)
[2016-12-04] MEDS ORDERED: LIDOCAINE 100 MG SYRINGE ONE (13:20)
[2016-12-04] MEDS ORDERED: POTASSIUM CHLORIDE 40 MEQ INJ ONE (13:20)
[2016-12-04] MEDS ORDERED: MAGNESIUM SULFATE (MG) 50% 10 ML INJ ONE (13:20)
[2016-12-04] MEDS ORDERED: MANNITOL 25% 100 ML ONE (13:21)
[2016-12-04] MEDS ORDERED: PHENYLephrine 10 MG INJ ONE (13:22)
[2016-12-04] MEDS ORDERED: PHENYLephrine (100 MCG/ML) 5ML SYG ONE ×4 (13:23→16:33)
[2016-12-04] MEDS ORDERED: EPINEPHrine 4 MG in DEXTROSE 5% 246 ML IV SCH (14:00)
[2016-12-04] MEDS ORDERED: INSULIN REGULAR, HUMAN 100 UNIT in SOD CHLORIDE 0.9% 99 ML IV SCH ×2 (14:00)
[2016-12-04] MEDS ORDERED: PHENYLephrine 20MG IN 250 ML 250 ML IV SCH (14:00)
[2016-12-04] MEDS ORDERED: CEFAZOLIN 1 GM INJ ONE ×2 (15:16→18:16)
--- NOTE | 2016-12-04 15:44 | CONS ---
Date/Time of Note Date/Time of Note DATE: 12/04/16 TIME: 15:43 Assessment/Plan Assessment/Plan Additional Assessment/Plan Non-ST elevation NE Multivessel coronary artery disease Cardiomyopathy with ejection fraction 50% Diabetes Hypertension Active tobacco use -Patient planned for CABG today. Continue aspirin and statin therapy. Consultation Date/Type/Reason Admit Date/Time Dec 02, 2016 at 17:14 Type of Consultation: cv 24 HR Interval Summary Free Text/Dictation Patient denies further chest pain, shortness of breath or palpitations. Denies dizziness Exam/Review of Systems Vital Signs Vitals Vital Signs Date Time Temp Pulse Resp B/P Pulse Ox O2 Delivery O2 Flow Rate FiO2 12/04/16 14:30 98 21 12/04/16 14:00 78 20 112/83 Room Air 12/04/16 12:00 99.3 12/03/16 17:08 2.0 Intake and Output 12/03/16 12/03/16 12/04/16 15:00 23:00 07:00 Intake Total 590 ml 792 ml Output Total 300 ml 550 ml 550 ml Balance 290 ml 242 ml -550 ml Exam No apparent distress Constitutional: alert, oriented Head: normocephalic Neck: supple Respiratory: other (Coarse breath sounds bilaterally, no wheezing) Cardiovascular: other (S1-S2 heard), regular rate and rhythm Gastrointestinal: bowel sounds, non-tender, other (No guarding), soft Extremities: edema (Trace), other (No cyanosis) Results Result Diagram: 12/04/16 0535 12/04/16 0535 Results 24 hrs Laboratory Tests Test 12/03/16 17:49 12/03/16 20:58 12/04/16 01:58 12/04/16 05:35 Bedside Glucose 235 H 263 H 165 White Blood Count 8.8 Red Blood Count 4.23 Hemoglobin 12.2 Hematocrit 37.4 Mean Corpuscular Volume 88.4 Mean Corpuscular Hemoglobin 28.8 L Mean Corpuscular Hemoglobin Concent 32.6 Red Cell Distribution Width 13.0 Platelet Count 309 Mean Platelet Volume 10.0 Neutrophils % 38.2 L Lymphocytes % 51.7 H Monocytes % 6.8 Eosinophils % 2.4 Basophils % 0.7 Nucleated Red Blood Cells % 0.0 Neutrophils # 3.4 Lymphocytes # 4.6 H Monocytes # 0.6 Eosinophils # 0.2 Basophils # 0.1 Nucleated Red Blood Cells # 0.0 Prothrombin Time 13.2 Prothrombin Time Ratio 1.0 INR International Normalized Ratio 1.00 Activated Partial Thromboplast Time 39.4 H Sodium Level 145 H Potassium Level 3.5 Chloride Level 104 Carbon Dioxide Level 34 H Anion Gap 11 Blood Urea Nitrogen 10 Creatinine 0.58 Glucose Level 85 # Calcium Level 8.7 Magnesium Level 1.8 Free Thyroxine 1.03 Free Triiodothyronine (T3) pg/mL 3.15 Test 12/04/16 08:07 12/04/16 12:12 Bedside Glucose 77 106 Medications Medications Current Medications Aspirin (Aspirin) 81 mg DAILY PO Last administered on 12/03/16 08:19; Admin Dose 81 MG; Start 12/03/16 at 09:00 Al Hydrox/Mg Hydrox/Simethicone (Mag-Al Plus) 30 ml Q4H PRN PO GASTROINTESTINAL UPSET; Start 12/02/16 at 15:00 Ondansetron HCl (Zofran Inj) 4 mg Q4H PRN IV NAUSEA AND/OR VOMITING; Start at 15:00 Duloxetine HCl (Cymbalta) 20 mg DAILY PO Last administered on 12/03/16 08:19; Admin Dose 20 MG; Start 12/03/16 at 09:00 Acetaminophen/ Hydrocodone Bitart ([place] (10/325)) 1 tab Q4H PRN PO PAIN; Start 12/02/16 at 15:00 Zolpidem Tartrate (Ambien) 5 mg HS PRN PO INSOMNIA; Start 12/02/16 at 17:00 Lorazepam (Ativan) 0.5 mg Q6H PRN IV ANXIETY; Start 12/02/16 at 15:00 Ondansetron HCl (Zofran Tab) 4 mg Q6H PRN PO NAUSEA AND/OR VOMITING; Start at 15:00 Nitroglycerin (Nitroglycerin (Sl Tab) 0.4 Mg) 1 tab Q5M PRN SL CHEST PAIN; Start 12/02/16 at 15:00 Acetaminophen (Tylenol Tab) 650 mg Q6H PRN PO PAIN LEVEL 1-3 OR FEVER Last administered on 12/03/16 12:40; Admin Dose 650 MG; Start 12/02/16 at 15:00 Acetaminophen (Tylenol Supp) 650 mg Q6H PRN [place] PAIN LEVEL 1-3 OR FEVER; Start 12/02/16 at 15:00 Docusate Sodium (Colace) 100 mg Q12H PRN PO CONSTIPATION; Start 12/02/16 at 15: 00 Pantoprazole (Protonix Tab) 40 mg DAILY@06 PO Last administered on 12/03/16 05 :58; Admin Dose 40 MG; Start 12/03/16 at 06:00 Diagnostic Test (Pha) (Accucheck) 1 ea 02 XX Last administered on 12/03/16 02: 17; Admin Dose 1 EA; Start 12/03/16 at 02:00 Miscellaneous Information 1 ea NOTE XX ; Start 12/02/16 at 18:30 Glucose (Glutose) 15 gm Q15M PRN PO DECREASED GLUCOSE; Start 12/02/16 at 18:30 Glucose (Glutose) 22.5 gm Q15M PRN PO DECREASED GLUCOSE; Start 12/02/16 at 18: 30 Dextrose (D50w Syringe) 25 ml Q15M PRN IV DECREASED GLUCOSE; Start 12/02/16 at 18:30 Dextrose (D50w Syringe) 50 ml Q15M PRN IV DECREASED GLUCOSE; Start 12/02/16 at 18:30 Glucagon (Glucagen) 1 mg Q15M PRN IM DECREASED GLUCOSE; Start 12/02/16 at 18:30 Glucose (Glutose) 15 gm Q15M PRN BUCCAL DECREASED GLUCOSE; Start 12/02/16 at 18 :30 Atorvastatin Calcium (Lipitor) 80 mg HS PO Last administered on 12/03/16 20:49 ; Admin Dose 80 MG; Start 12/02/16 at 21:00 Pregabalin (Lyrica) 75 mg BID PO Last administered on 12/03/16 21:08; Admin Dose 75 MG; Start 12/02/16 at 21:00 Morphine Sulfate (Ms Contin (Er)) 30 mg Q8H PO Last administered on 12/03/16 22:55; Admin Dose 30 MG; Start 12/02/16 at 22:30 Insulin Detemir 40 unit 40 unit DAILY@20 SC ; Start 12/04/16 at 20:00 Potassium Chloride/Dextrose/ Sod Cl (D5-1/2ns + KCl 20 Meq) 1,000 ml @ 70 mls/ hr [id number] IV Last administered on 3/24/17at 11:12; Admin Dose 70 MLS/HR; Start 12/04/16 at 11:30 Manuel Escudero DO Dec 04, 2016 15:44
[2016-12-04] MEDS ORDERED: FUROSEMIDE 20 MG INJ ONE ×2 (16:32→18:41)
[2016-12-04] MEDS ORDERED: GELATIN SIZE 100 SPONGE ONE (17:26)
[2016-12-04] MEDS ORDERED: ETOMIDATE 20 MG INJ ONE (18:24)
[2016-12-04] MEDS ORDERED: LIDOCAINE 2% (SDV) 5 ML INJ ONE (18:24)
[2016-12-04] MEDS ORDERED: ROCURONIUM 50 MG INJ ONE (18:24)
[2016-12-04] MEDS ORDERED: PROTAMINE 250 MG INJ ONE (18:24)
[2016-12-04] MEDS ORDERED: INSULIN DETEMIR [LEVEMIR] 3ML CART SC SCH (20:00)
--- NOTE | 2016-12-04 20:31 | RADRPT ---
PROCEDURE: XR Chest. CLINICAL INDICATION: Post CABG evaluation TECHNIQUE: Single view of the chest COMPARISON: Chest radiograph December 05, 2015 at 06:17 am FINDINGS: The tip of the endotracheal tube is approximately 4 cm above the teodoro. Enteric tube courses below the diaphragm. There are is a right IJ [place]-Yolette catheter with the tip over the main pulmonary art jori. There are left and right-sided chest tubes as well as the mediastinal drain. There are sterna l wires. There is pulmonary vascular congestion with enlargement cardiac silhouette. Hazy right perihilar op acity is noted. There is no pneumothorax. Mild bibasilar atelectasis and trace left effusion is no lucy as well. There is no acute osseous abnormality. IMPRESSION: 1. Mild pulmonary vascular congestion with trace left effusion and hazy right perihilar opacity. 2. Enlarged cardiac silhouette and sternal wires. 3. Lines and tubes as above compatible to recent CABG. No evidence of pneumothorax. RPTAT: UU .Yung Carrasco MD, MD Date Time Electronically viewed and signed by .Yung Carrasco MD, on 12/04/2016 20:30 .K/
[2016-12-04] MEDS: ATORVASTATIN 80 MG TAB PO SCH (21:00)
[2016-12-04 21:07] LABS: ADD SCAN DIFF NO
[2016-12-04 21:10] LABS: BASOPHILS % 0.2 % (0.0-2.0); EOSINOPHILS # 0.1 10^3/ul (0.0-0.5); EOSINOPHILS % 0.3 % (0.0-7.0); HEMATOCRIT 27.2 % (37.0-47.0); HEMOGLOBIN 9.4 g/dl (12.0-16.0); LYMPHOCYTES # 3.8 10^3/ul (0.8-2.9); LYMPHOCYTES % 21.8 % (15.0-51.0); MEAN CORPUSCULAR HEMOGLOBIN 30.1 pg (29.0-33.0); MEAN CORPUSCULAR HGB CONC 34.6 g/dl (32.0-37.0); MEAN CORPUSCULAR VOLUME 87.2 fl (82.0-101.0); MEAN PLATELET VOLUME 9.9 fl (7.4-10.4); MONOCYTE # 1.2 10^3/ul (0.3-0.9); MONOCYTES % 6.9 % (0.0-11.0); NEUTROPHIL # 12.1 10^3/ul (1.6-7.5); PLATELET COUNT 253 10^3/UL (140-415); RED BLOOD COUNT 3.12 10^6/ul (4.20-5.40); RED CELL DISTRIBUTION WIDTH 13.1 % (11.5-14.5); WHITE BLOOD COUNT 17.3 10^3/ul (4.8-10.8)
[2016-12-04 21:18] LABS: INR 1.14; PROTIME 14.6 Sec (12.2-14.2); PT RATIO 1.1
[2016-12-04 21:19] LABS: PARTIAL THROMBOPLASTIN TIME 28.5 Sec (25.0-35.0)
[2016-12-04 21:20] LABS: POTASSIUM 3.3 mmol/L (3.5-5.1)
[2016-12-04 21:22] LABS: AADO2 Arterial 293.3 mmHg (7.0-24.0); Arterial Base Excess 1.4 mmol/L (-3.0-3); Arterial COHb 0.3 % (0.0-3.0); Arterial HCO3 26.1 mmol/L (22.0-26.0); Arterial MetHb 0.5 % (0.0-1.5); Arterial Total Hemglobin 11.2 g/dl (12.0-18.0); MODE VENT - AC
[2016-12-04 21:22] LABS: CREATININE 0.66 mg/dl (0.44-1.00)
[2016-12-04 21:23] LABS: CALCIUM 8.7 mg/dl (8.4-10.2)
[2016-12-04 21:28] LABS: MODE VENT - AC; MetHgb Mixed Venous 0.5 %; Mixed Venous COHb 0.3 %; Mixed Venous Fraction OxyHgb 78.7 %; Mixed Venous Oxygen Sat 79.3 mmHG (65.0-75.0); Mixed Venous Total Hemglobin 10.7 g/dl; Sample Type BLMV
[2016-12-04] MEDS ORDERED: PROPOFOL 100 ML ONE (21:28)
[2016-12-04] MEDS ORDERED: morphine 10 MG INJ IV ONE (21:30)
[2016-12-04] MEDS ORDERED: DEXTROSE 50% 50 ML SYRINGE IV PRN ×2 (22:30)
[2016-12-04] MEDS ORDERED: DOPamine-D5W 1.6 MG/ML 250 ML IV SCH (22:30)
[2016-12-04] MEDS ORDERED: NITROGLYCERIN 50 MG/D5W (PMX) 250 ML IV SCH (22:30)
[2016-12-04] MEDS: POTASSIUM CHLORIDE 40 MEQ, CALCIUM CHLORIDE 10% 1 GM in DEXTROSE 5%-0.225% NACL 970 ML IV SCH (22:46)
[2016-12-04] MEDS: PROPOFOL 100 ML IV SCH (22:46)
[2016-12-04] MEDS: ALBUMIN HUMAN 5% 250 ML IV SCH (23:05)
[2016-12-04] MEDS: INSULIN REGULAR, HUMAN 100 UNIT in SOD CHLORIDE 0.9% 99 ML IV SCH ×2 (23:13)
[2016-12-04] MEDS: POTASSIUM CHLORIDE 50 ML IVPB PRN (23:18)
[2016-12-04] MEDS: DEXTROSE 50% 50 ML SYRINGE IV PRN (23:54)
[2016-12-05] VITALS (79 sets, daily range): BP systolic 83–147; BP diastolic 42–70; PULSE 83–113; RESP 14–50; TEMP 100.2–101.6
[2016-12-05] MEDS: POTASSIUM CHLORIDE 50 ML IVPB PRN ×2 (00:29→02:15)
[2016-12-05] MEDS: ACCU-CHEK XX SCH ×16 (00:30→15:36)
[2016-12-05] MEDS: ALBUMIN HUMAN 5% 250 ML IV SCH (00:54)
[2016-12-05] MEDS: morphine 2 MG INJ IV PRN ×5 (01:00→18:16)
[2016-12-05 03:38] LABS: ADD SCAN DIFF NO
[2016-12-05 03:52] LABS: INR 1.14; POTASSIUM 4.6 mmol/L (3.5-5.1); PROTIME 14.6 Sec (12.2-14.2); PT RATIO 1.1
[2016-12-05 03:55] LABS: CREATININE 0.69 mg/dl (0.44-1.00)
[2016-12-05 03:56] LABS: CALCIUM 8.4 mg/dl (8.4-10.2)
[2016-12-05 04:07] LABS: BASOPHILS % 0.3 % (0.0-2.0); EOSINOPHILS % 0.1 % (0.0-7.0); HEMATOCRIT 24.4 % (37.0-47.0); HEMOGLOBIN 8.4 g/dl (12.0-16.0); LYMPHOCYTES # 1.6 10^3/ul (0.8-2.9); LYMPHOCYTES % 15.1 % (15.0-51.0); MEAN CORPUSCULAR HEMOGLOBIN 29.9 pg (29.0-33.0); MEAN CORPUSCULAR HGB CONC 34.4 g/dl (32.0-37.0); MEAN CORPUSCULAR VOLUME 86.8 fl (82.0-101.0); MEAN PLATELET VOLUME 10.1 fl (7.4-10.4); MONOCYTE # 0.9 10^3/ul (0.3-0.9); MONOCYTES % 7.8 % (0.0-11.0); NEUTROPHIL # 8.2 10^3/ul (1.6-7.5); NEUTROPHILS % 75.9 % (39.0-77.0); PLATELET COUNT 231 10^3/UL (140-415); RED BLOOD COUNT 2.81 10^6/ul (4.20-5.40); RED CELL DISTRIBUTION WIDTH 13.7 % (11.5-14.5); WHITE BLOOD COUNT 10.8 10^3/ul (4.8-10.8)
[2016-12-05] MEDS: PANTOPRAZOLE 40 MG INJ IV SCH (05:34)
[2016-12-05] MEDS: CEFAZOLIN 1 GM/50 ML (PMX) 50 ML IVPB SCH ×3 (05:34→22:07)
[2016-12-05 05:40] LABS: AADO2 Arterial 228.7 mmHg (7.0-24.0); Arterial Base Excess 0.8 mmol/L (-3.0-3); Arterial COHb 0.2 % (0.0-3.0); Arterial HCO3 24.5 mmol/L (22.0-26.0); Arterial MetHb 0.6 % (0.0-1.5); Arterial Total Hemglobin 9.2 g/dl (12.0-18.0); MODE VENT - AC
[2016-12-05] MEDS: PROPOFOL 100 ML IV SCH (05:41)
--- NOTE | 2016-12-05 06:25 | OPR ---
DATE OF OPERATION: PREOPERATIVE DIAGNOSIS: Coronary artery disease. POSTOPERATIVE DIAGNOSIS: Coronary artery disease. OPERATION PERFORMED: Coronary artery bypass graftin. Left internal mammary artery to left anterior descending proximal. 2. Left internal mammary artery to left anterior descending distal. 3. Saphenous vein graft to posterior descending artery. 4. Saphenous vein graft to diagonal branch of the left anterior descending. 5. Coronary endarterectomy. 6. Saphenous vein harvest left lower extremity. 7. Thymectomy. SURGEON: Renetta Larose MD ANESTHESIA: General. FLAT FOLDING MACHINE OPERATOR: Ladarius Driver MD SECOND DRIVER: Juanpablo. INFORMED CONSENT: Risks, benefits, complications, alternative therapies, and high-risk nature of th e operation were fully explained to the patient and her family, and consent was obtained. OPERATIVE TECHNIQUE: The patient was placed in the supine position, prepped and draped in the usual sterile fashion. Time-out was called, antibiotic was given and I started. The patient was placed in supine position. The sternal incision was made from the sternal notch francisco javier n to the xiphoid process. Simultaneously, saphenous vein was harvested using endoscopic technique f rom the left lower extremity. The sternum was opened. Left internal mammary was harvested using ti tanium clips and electrocautery. The pericardium was opened. Thymectomy was done to gain access to the aorta. Pericardium opened, and the patient was fully heparinized. Cannulation sutures of 3-0 Prolene with p ledgets were applied to the distal ascending aorta, mid ascending aorta, body of the right atrium an d right atrial appendage. After adequate documentation of ACT, aorta was cannulated followed by 2-s tage venous cannula, antegrade and retrograde cardioplegic cannula. The heart was placed on cardiop ulmonary bypass. After stabilization on bypass, crossclamp was applied. Heart was arrested using a nterior and retrograde cardioplegia given every 15 to 20 minutes supplemented by topical slush to th e surface of the heart and cardioplegia through the vein graft. We proceeded with distal anastomosi s. The first anastomosis was the PDA, saphenous vein to PDA in end-to-side fashion, an 8 mm longitu dinal arteriotomy, and 7-0 Prolene continuous suture technique. Next anastomosis was the diagonal branch of the LAD in a similar fashion. The third and fourth anas tomoses were done to the proximal and distal LAD to 1.5 mm longitudinal arteriotomy after a coronary endarterectomy mammary to LAD in end-to-side fashion with 7-0 Prolene continuous suture technique. The 2 proximal anastomoses were done on the same Crossclamp, 4.5 mm punches, 6-0 Prolene continuous suture technique. Cross clamp was removed. The heart and the grafts were deaired. The patient cam e off cardiopulmonary bypass after resting for 15 minutes. Minimal drips. Protamine given, cannula s removed and sutures tied. Two mediastinal chest tubes and a left pleural tube were placed, bessy t out through a lower stab wound and secured to the skin using 2-0 silk sutures. No bleeding was no lucy. The sternum was closed using a cable system x4. The linea alba and the deep tissues were irri gated using antibiotic solution and closed in 2 layers of #1 Vicryl suture for the deep, 2-0 Vicryl suture for subcutaneous and Monocryl suture for the skin with Steri-Strips. The leg was closed in a similar fashion. The patient tolerated the procedure well. Dictated By: RENETTA MILLS/[place] Conf#: [id number] DID#: [id number]
[2016-12-05] MEDS: morphine (ER) 15 MG TAB PO SCH ×3 (06:30→22:30)
[2016-12-05 08:12] LABS: ADD SCAN DIFF NO
[2016-12-05 08:25] LABS: BASOPHILS % 0.4 % (0.0-2.0); EOSINOPHILS % 0.1 % (0.0-7.0); HEMATOCRIT 25.6 % (37.0-47.0); HEMOGLOBIN 8.8 g/dl (12.0-16.0); LYMPHOCYTES % 17.7 % (15.0-51.0); MEAN CORPUSCULAR HEMOGLOBIN 29.7 pg (29.0-33.0); MEAN CORPUSCULAR HGB CONC 34.4 g/dl (32.0-37.0); MEAN CORPUSCULAR VOLUME 86.5 fl (82.0-101.0); MONOCYTES % 9.2 % (0.0-11.0); NEUTROPHILS % 72.2 % (39.0-77.0); PLATELET COUNT 245 10^3/UL (140-415); RED BLOOD COUNT 2.96 10^6/ul (4.20-5.40); RED CELL DISTRIBUTION WIDTH 13.8 % (11.5-14.5); WHITE BLOOD COUNT 11.1 10^3/ul (4.8-10.8)
[2016-12-05 08:48] LABS: INR 1.11; PROTIME 14.3 Sec (12.2-14.2); PT RATIO 1.1
[2016-12-05 08:49] LABS: PARTIAL THROMBOPLASTIN TIME 40.5 Sec (25.0-35.0)
--- NOTE | 2016-12-05 08:57 | RADRPT ---
PROCEDURE: XR Chest. CLINICAL INDICATION: Status post CABG. TECHNIQUE: Single frontal view of the chest was obtained COMPARISON: Chest x-ray 12/04/2016 18:19 hour. FINDINGS: The soft tissues are normal. There are osteophytes in the thoracic spine. The heart is enlarged. A mediastinotomy was performed. The cardiomediastinal silhouette, and hilar structures are normal. There are 2 left-sided thoracostomy tubes in place with no evidence of a pneumothorax. A small lef t pleural effusion is not excluded. There are mild basilar infiltrates. A [place]-Yolette catheter is in the main pulmonary artery outflow tract is well positioned. IMPRESSION: 1. Cardiomegaly with interstitial pulmonary edema and probable small left pleural effusion and left lower lobe compressive atelectasis. 2. Satisfactory positioning of an endotracheal tube near T3-4 and [place]-Yolette catheter in the main pu lmonary artery outflow tract. 3. The left-sided thoracostomy tubes are in place with no evidence of a pneumothorax. Therefore st atus post median sternotomy for coronary artery bypass surgery. RPTAT:AAJJ Physician Deion Date Time Electronically viewed and signed by Physician Deion on 12/05/2016 08:57 /
[2016-12-05] MEDS: PREGABALIN 25 MG CAP PO SCH ×2 (09:00→12:33)
[2016-12-05] MEDS: ASPIRIN 81 MG TAB PO SCH ×2 (09:00→12:33)
[2016-12-05] MEDS: DULOXETINE 20 MG CAP DR PO SCH ×2 (09:00→12:33)
--- NOTE | 2016-12-05 09:46 | PN ---
Date/Time of Note Date/Time of Note DATE: 12/05/16 TIME: 09:45 Assessment/Plan VTE Prophylaxis VTE Prophylaxis Intervention: SCD's Lines/Catheters IV Catheter Type (from Nrs): [place] Urinary Cath still in place: Yes Reason Cath still needed: urinary retention Assessment/Plan Assessment/Plan Non-ST elevation AR Multivessel coronary artery disease Cardiomyopathy with ejection fraction 50% Diabetes Hypertension s/p CABG -on CPAP tria -continue CTS care -chest tube/swan yolette in place -weaning off pressors Subjective 24 Hr Interval Summary Free Text/Dictation The patinet doing well post CABG and on CPAP Exam/Review of Systems Vital Signs Vitals Vital Signs Date Time Temp Pulse Resp B/P Pulse Ox O2 Delivery O2 Flow Rate FiO2 12/05/16 08:45 81 28 97 45 12/05/16 08:00 100.6 111/53 12/04/16 14:00 Room Air 12/03/16 17:08 2.0 Intake and Output 12/04/16 12/04/16 12/05/16 15:00 23:00 07:00 Intake Total 193 ml 3812 ml 1750.6 ml Output Total 0 ml 3129 ml 634 ml Balance 193 ml 683 ml 1116.6 ml Results Result Diagram: 12/05/16 0800 12/05/16 0328 Results 24 hrs Laboratory Tests Test 12/04/16 12:12 12/04/16 20:40 12/04/16 20:49 12/04/16 21:00 Bedside Glucose 106 Blood Gas Specimen Source BLMV Blood arterial Arterial Blood Date Drawn 12/04/2016 9:15:00 PM 12/04/2016 9:10:10 PM Arterial Blood Gas Puncture Site VENOUS LINE A-Line Amor Test N/A N/A Mixed Venous Blood PO2 43.2 H Mixed Venous Blood O2 Saturation 79.3 H Mixed Venous Blood Total Hemoglobin 10.7 Mixed Venous Blood Oxyhemoglobin 78.7 Mixed Venous Bld Carboxyhemoglobin 0.3 Mixed Venous Blood Methemoglobin 0.5 Blood Gas Temperature 37.0 37.0 Blood Gas Respiration Rate 14.0 14.0 Blood Gas Actual Respiration Rate 14 14 Blood Gas Modality VENT - AC VENT - AC FiO2 60.0 60.0 Blood Gas Tidal Volume 500.0 500.0 Blood Gas Low PEEP Setting 5.0 5.0 Blood Gas Notified Whom GURDEEP MACKENZIE Blood Gas Notified Time 12/04/2016 9:28:32 PM 12/04/2016 9:22:48 PM Arterial Blood pH (Temp corrected) 7.414 Arterial Blood pCO2 (Temp correct) 41.8 Arterial Blood pO2 (Temp corrected) 88.5 Arterial Blood HCO3 26.1 H Arterial Blood Base Excess 1.4 Arterial Blood Oxygen Saturation 95.8 Arterial Blood Carboxyhemoglobin 0.3 Arterial Blood Methemoglobin 0.5 Blood Gas A-a O2 Differential 293.3 H Oxyhemoglobin Percent 95.0 Total Hemoglobin 11.2 L White Blood Count 17.3 #H Red Blood Count 3.12 #L Hemoglobin 9.4 #L Hematocrit 27.2 #L Mean Corpuscular Volume 87.2 Mean Corpuscular Hemoglobin 30.1 Mean Corpuscular Hemoglobin Concent 34.6 Red Cell Distribution Width 13.1 Platelet Count 253 Mean Platelet Volume 9.9 Neutrophils % 70.0 Lymphocytes % 21.8 Monocytes % 6.9 Eosinophils % 0.3 Basophils % 0.2 Nucleated Red Blood Cells % 0.0 Neutrophils # 12.1 H Lymphocytes # 3.8 H Monocytes # 1.2 H Eosinophils # 0.1 Basophils # 0.0 Nucleated Red Blood Cells # 0.0 Prothrombin Time 14.6 H Prothrombin Time Ratio 1.1 INR International Normalized Ratio 1.14 Activated Partial Thromboplast Time 28.5 Sodium Level 147 H Potassium Level 3.3 L Chloride Level 104 Carbon Dioxide Level 31 Anion Gap 15 Blood Urea Nitrogen 10 Creatinine 0.66 Glucose Level 74 Calcium Level 8.7 Magnesium Level 2.4 Test 12/04/16 23:09 12/04/16 23:51 12/05/16 00:57 12/05/16 02:06 Bedside Glucose 65 L 69 L 105 145 Test 12/05/16 03:00 12/05/16 03:28 12/05/16 04:06 12/05/16 04:59 Bedside Glucose 176 191 180 White Blood Count 10.8 # Red Blood Count 2.81 L Hemoglobin 8.4 L Hematocrit 24.4 L Mean Corpuscular Volume 86.8 Mean Corpuscular Hemoglobin 29.9 Mean Corpuscular Hemoglobin Concent 34.4 Red Cell Distribution Width 13.7 Platelet Count 231 Mean Platelet Volume 10.1 Neutrophils % 75.9 Lymphocytes % 15.1 Monocytes % 7.8 Eosinophils % 0.1 Basophils % 0.3 Nucleated Red Blood Cells % 0.0 Neutrophils # 8.2 H Lymphocytes # 1.6 Monocytes # 0.9 Eosinophils # 0.0 Basophils # 0.0 Nucleated Red Blood Cells # 0.0 Prothrombin Time 14.6 H Prothrombin Time Ratio 1.1 INR International Normalized Ratio 1.14 Activated Partial Thromboplast Time 49.0 H Sodium Level 144 Potassium Level 4.6 Chloride Level 109 Carbon Dioxide Level 29 Anion Gap 11 Blood Urea Nitrogen 12 Creatinine 0.69 Glucose Level 167 Calcium Level 8.4 Magnesium Level 2.0 Test 12/05/16 05:00 12/05/16 06:23 12/05/16 06:58 12/05/16 07:51 Blood Gas Specimen Source Blood arterial Arterial Blood Date Drawn 12/05/2016 5:30:08 AM Arterial Blood pH (Temp corrected) 7.456 H Arterial Blood pCO2 (Temp correct) 35.6 Arterial Blood pO2 (Temp corrected) 87.8 Arterial Blood HCO3 24.5 Arterial Blood Base Excess 0.8 Arterial Blood Oxygen Saturation 95.8 Amor Test N/A Arterial Blood Gas Puncture Site A-Line Arterial Blood Carboxyhemoglobin 0.2 Arterial Blood Methemoglobin 0.6 Blood Gas A-a O2 Differential 228.7 H Oxyhemoglobin Percent 95.0 Total Hemoglobin 9.2 L Blood Gas Temperature 37.0 Blood Gas Respiration Rate 14.0 Blood Gas Actual Respiration Rate 14 Blood Gas Modality VENT - AC FiO2 50.0 Blood Gas Tidal Volume 500.0 Blood Gas Low PEEP Setting 5.0 Blood Gas Inspiratory Pressure 30.0 Blood Gas Notified Whom AA Blood Gas Notified Time 12/05/2016 5:40:03 AM Bedside Glucose 138 106 108 Test 12/05/16 08:00 White Blood Count 11.1 H Red Blood Count 2.96 L Hemoglobin 8.8 L Hematocrit 25.6 L Mean Corpuscular Volume 86.5 Mean Corpuscular Hemoglobin 29.7 Mean Corpuscular Hemoglobin Concent 34.4 Red Cell Distribution Width 13.8 Platelet Count 245 Mean Platelet Volume 10.0 Neutrophils % 72.2 Lymphocytes % 17.7 Monocytes % 9.2 Eosinophils % 0.1 Basophils % 0.4 Nucleated Red Blood Cells % 0.0 Neutrophils # 8.0 H Lymphocytes # 2.0 Monocytes # 1.0 H Eosinophils # 0.0 Basophils # 0.0 Nucleated Red Blood Cells # 0.0 Prothrombin Time 14.3 H Prothrombin Time Ratio 1.1 INR International Normalized Ratio 1.11 Activated Partial Thromboplast Time 40.5 H Medications Medications Current Medications Aspirin (Aspirin) 81 mg DAILY PO Last administered on 12/03/16 08:19; Admin Dose 81 MG; Start 12/03/16 at 09:00 Al Hydrox/Mg Hydrox/Simethicone (Mag-Al Plus) 30 ml Q4H PRN PO GASTROINTESTINAL UPSET; Start 12/02/16 at 15:00 Ondansetron HCl (Zofran Inj) 4 mg Q4H PRN IV NAUSEA AND/OR VOMITING; Start at 15:00 Duloxetine HCl (Cymbalta) 20 mg DAILY PO Last administered on 12/03/16 08:19; Admin Dose 20 MG; Start 12/03/16 at 09:00 Acetaminophen/ Hydrocodone Bitart ([place] (10/325)) 1 tab Q4H PRN PO PAIN; Start 12/02/16 at 15:00 Zolpidem Tartrate (Ambien) 5 mg HS PRN PO INSOMNIA; Start 12/02/16 at 17:00 Lorazepam (Ativan) 0.5 mg Q6H PRN IV ANXIETY Last administered on 12/05/16 09: 08; Admin Dose 0.5 MG; Start 12/02/16 at 15:00 Ondansetron HCl (Zofran Tab) 4 mg Q6H PRN PO NAUSEA AND/OR VOMITING; Start at 15:00 Nitroglycerin (Nitroglycerin (Sl Tab) 0.4 Mg) 1 tab Q5M PRN SL CHEST PAIN; Start 12/02/16 at 15:00 Acetaminophen (Tylenol Tab) 650 mg Q6H PRN PO PAIN LEVEL 1-3 OR FEVER Last administered on 12/03/16 12:40; Admin Dose 650 MG; Start 12/02/16 at 15:00 Acetaminophen (Tylenol Supp) 650 mg Q6H PRN [place] PAIN LEVEL 1-3 OR FEVER Last administered on 12/05/16 03:52; Admin Dose 650 MG; Start 12/02/16 at 15:00 Docusate Sodium (Colace) 100 mg Q12H PRN PO CONSTIPATION; Start 12/02/16 at 15: 00 Miscellaneous Information 1 ea NOTE XX ; Start 12/02/16 at 18:30 Glucose (Glutose) 15 gm Q15M PRN PO DECREASED GLUCOSE; Start 12/02/16 at 18:30 Glucose (Glutose) 22.5 gm Q15M PRN PO DECREASED GLUCOSE; Start 12/02/16 at 18: 30 Dextrose (D50w Syringe) 25 ml Q15M PRN IV DECREASED GLUCOSE Last administered on 12/04/16 23:54; Admin Dose 25 ML; Start 12/02/16 at 18:30 Dextrose (D50w Syringe) 50 ml Q15M PRN IV DECREASED GLUCOSE; Start 12/02/16 at 18:30 Glucagon (Glucagen) 1 mg Q15M PRN IM DECREASED GLUCOSE; Start 12/02/16 at 18:30 Glucose (Glutose) 15 gm Q15M PRN BUCCAL DECREASED GLUCOSE; Start 12/02/16 at 18 :30 Atorvastatin Calcium (Lipitor) 80 mg HS PO Last administered on 12/03/16 20:49 ; Admin Dose 80 MG; Start 12/02/16 at 21:00 Pregabalin (Lyrica) 75 mg BID PO Last administered on 12/03/16 21:08; Admin Dose 75 MG; Start 12/02/16 at 21:00 Morphine Sulfate 30 mg 30 mg Q8H PO Last administered on 12/03/16 22:55; Admin Dose 30 MG; Start 12/02/16 at 22:30 Potassium Chloride 40 meq/ Calcium Chloride 1 gm/Dextrose/ Sodium Chloride 1, 000 ml @ 60 mls/hr [id number] IV Last administered on 12/04/16 22:46; Admin Dose 60 MLS/HR; Start 12/04/16 at 21:30 Propofol (Diprivan) 100 ml @ 2.865 mls/ hr Q12H IV Last administered on 05:41; Admin Dose 15.7 MLS/HR; Start 12/04/16 at 21:30 Diagnostic Test (Pha) (Accu-Chek) 1 ea Q1H XX Last administered on 12/05/16 08 :01; Admin Dose 1 EA; Start 12/04/16 at 22:30 Dextrose (D50w Syringe) 25 ml Q15M PRN IV Till BS 80 mg/dL or above x2; Start 3/24/17 at 22:30 Dextrose 50 ml 50 ml Q15M PRN IV Till BS 80 mg/dL or above x2; Start 12/04/16 at 22:30 Nitroglycerin/ Dextrose 250 ml @ 1.5 mls/hr TITRATE IV ; Start 12/04/16 at 22: 30 Dopamine HCl/ Dextrose 250 ml @ 7.163 mls/ hr TITRATE IV ; Start 12/04/16 at 22 :30 Cefazolin Sodium (Ancef 1 Gm/50 ml (Pmx)) 50 ml @ 100 mls/hr Q8 IVPB Last administered on 12/05/16 05:34; Admin Dose 100 MLS/HR; Start 12/05/16 at 06:00 ; Stop 12/05/16 at 22:29 Morphine Sulfate (morphine) 1 mg Q10MIN PRN IV PAIN WHILE INTUBATED Last administered on 12/05/16 08:32; Admin Dose 1 MG; Start 12/04/16 at 22:30 Pantoprazole (Protonix Iv) 40 mg DAILY@06 IV Last administered on 12/05/16 05: 34; Admin Dose 40 MG; Start 12/05/16 at 06:00 CLARENCE RODRÍGUEZ MD Dec 05, 2016 09:46
[2016-12-05] MEDS: INSULIN REGULAR, HUMAN 100 UNIT in SOD CHLORIDE 0.9% 99 ML IV SCH ×2 (09:54)
--- NOTE | 2016-12-05 10:30 | PN ---
Date/Time of Note Date/Time of Note DATE: 12/05/16 TIME: 10:28 Assessment/Plan VTE Prophylaxis VTE Prophylaxis Intervention: other Lines/Catheters IV Catheter Type (from Nrs): A Line Urinary Cath still in place: Yes Reason Cath still needed: other (indicate) Assessment/Plan Chief Complaint/Hosp Course ASSESSMENT AND PLAN: 1. Non-ST elevation myocardial infarction. The patient is status post left heart catheterization with a finding of multivessel coronary artery disease. Cardiothoracic surgeon consulted Postop day #1 status post CABG, continue aspirin , Lovenox, statin and monitor blood pressure 2. Obstructive coronary artery disease as above. Cardiothoracic surgeon has been consulted. Status post CABG, continue medical management 3. Essential hypertension, well controlled on medical management. 4. Dyslipidemia. Continue statin. 5. Major depression. Continue Cymbalta. 6. Diabetes mellitus. Continue insulin sliding scale, low carb diet. 7. Diabetic neuropathy. Continue Lyrica. 8. For deep venous thrombosis prophylaxis, continue Lovenox 9. For gastrointestinal prophylaxis, on proton pump inhibitor. We will continue to monitor patient closely. Further recommendations, management and treatment as per clinical course. Problems: Subjective 24 Hr Interval Summary Free Text/Dictation Postop day #1 Intubated In soft restraints Exam/Review of Systems Vital Signs Vitals Vital Signs Date Time Temp Pulse Resp B/P Pulse Ox O2 Delivery O2 Flow Rate FiO2 12/05/16 10:00 100.5 97 33 131/56 12/05/16 08:45 97 45 12/04/16 14:00 Room Air 12/03/16 17:08 2.0 Intake and Output 12/04/16 12/04/16 12/05/16 15:00 23:00 07:00 Intake Total 193 ml 3812 ml 1750.6 ml Output Total 0 ml 3129 ml 634 ml Balance 193 ml 683 ml 1116.6 ml Exam General: The patient is intubated HEENT: Atraumatic, normocephalic. The pupils are equal and round . Neck: Supple Chest: Chest tube in place Lungs: Clear to auscultation bilaterally Heart: Normal S1-S2, Regular rhythm and rate. Abdomen: Soft , nontender, nondistended , bowel sounds are present. Extremities: Normal to inspection, no edema no cyanosis, surgical site is dry and clean Neurologic: Sedated,The patient is awake, and arousable Results Result Diagram: 12/05/16 0800 12/05/16 0328 Results 24 hrs Laboratory Tests Test 12/04/16 12:12 12/04/16 20:40 12/04/16 20:49 12/04/16 21:00 Bedside Glucose 106 Blood Gas Specimen Source BLMV Blood arterial Arterial Blood Date Drawn 12/04/2016 9:15:00 PM 12/04/2016 9:10:10 PM Arterial Blood Gas Puncture Site VENOUS LINE A-Line Amor Test N/A N/A Mixed Venous Blood PO2 43.2 H Mixed Venous Blood O2 Saturation 79.3 H Mixed Venous Blood Total Hemoglobin 10.7 Mixed Venous Blood Oxyhemoglobin 78.7 Mixed Venous Bld Carboxyhemoglobin 0.3 Mixed Venous Blood Methemoglobin 0.5 Blood Gas Temperature 37.0 37.0 Blood Gas Respiration Rate 14.0 14.0 Blood Gas Actual Respiration Rate 14 14 Blood Gas Modality VENT - AC VENT - AC FiO2 60.0 60.0 Blood Gas Tidal Volume 500.0 500.0 Blood Gas Low PEEP Setting 5.0 5.0 Blood Gas Notified Whom GURDEEP MACKENZIE Blood Gas Notified Time 12/04/2016 9:28:32 PM 12/04/2016 9:22:48 PM Arterial Blood pH (Temp corrected) 7.414 Arterial Blood pCO2 (Temp correct) 41.8 Arterial Blood pO2 (Temp corrected) 88.5 Arterial Blood HCO3 26.1 H Arterial Blood Base Excess 1.4 Arterial Blood Oxygen Saturation 95.8 Arterial Blood Carboxyhemoglobin 0.3 Arterial Blood Methemoglobin 0.5 Blood Gas A-a O2 Differential 293.3 H Oxyhemoglobin Percent 95.0 Total Hemoglobin 11.2 L White Blood Count 17.3 #H Red Blood Count 3.12 #L Hemoglobin 9.4 #L Hematocrit 27.2 #L Mean Corpuscular Volume 87.2 Mean Corpuscular Hemoglobin 30.1 Mean Corpuscular Hemoglobin Concent 34.6 Red Cell Distribution Width 13.1 Platelet Count 253 Mean Platelet Volume 9.9 Neutrophils % 70.0 Lymphocytes % 21.8 Monocytes % 6.9 Eosinophils % 0.3 Basophils % 0.2 Nucleated Red Blood Cells % 0.0 Neutrophils # 12.1 H Lymphocytes # 3.8 H Monocytes # 1.2 H Eosinophils # 0.1 Basophils # 0.0 Nucleated Red Blood Cells # 0.0 Prothrombin Time 14.6 H Prothrombin Time Ratio 1.1 INR International Normalized Ratio 1.14 Activated Partial Thromboplast Time 28.5 Sodium Level 147 H Potassium Level 3.3 L Chloride Level 104 Carbon Dioxide Level 31 Anion Gap 15 Blood Urea Nitrogen 10 Creatinine 0.66 Glucose Level 74 Calcium Level 8.7 Magnesium Level 2.4 Test 12/04/16 23:09 12/04/16 23:51 12/05/16 00:57 12/05/16 02:06 Bedside Glucose 65 L 69 L 105 145 Test 12/05/16 03:00 12/05/16 03:28 12/05/16 04:06 12/05/16 04:59 Bedside Glucose 176 191 180 White Blood Count 10.8 # Red Blood Count 2.81 L Hemoglobin 8.4 L Hematocrit 24.4 L Mean Corpuscular Volume 86.8 Mean Corpuscular Hemoglobin 29.9 Mean Corpuscular Hemoglobin Concent 34.4 Red Cell Distribution Width 13.7 Platelet Count 231 Mean Platelet Volume 10.1 Neutrophils % 75.9 Lymphocytes % 15.1 Monocytes % 7.8 Eosinophils % 0.1 Basophils % 0.3 Nucleated Red Blood Cells % 0.0 Neutrophils # 8.2 H Lymphocytes # 1.6 Monocytes # 0.9 Eosinophils # 0.0 Basophils # 0.0 Nucleated Red Blood Cells # 0.0 Prothrombin Time 14.6 H Prothrombin Time Ratio 1.1 INR International Normalized Ratio 1.14 Activated Partial Thromboplast Time 49.0 H Sodium Level 144 Potassium Level 4.6 Chloride Level 109 Carbon Dioxide Level 29 Anion Gap 11 Blood Urea Nitrogen 12 Creatinine 0.69 Glucose Level 167 Calcium Level 8.4 Magnesium Level 2.0 Test 12/05/16 05:00 12/05/16 06:23 12/05/16 06:58 12/05/16 07:51 Blood Gas Specimen Source Blood arterial Arterial Blood Date Drawn 12/05/2016 5:30:08 AM Arterial Blood pH (Temp corrected) 7.456 H Arterial Blood pCO2 (Temp correct) 35.6 Arterial Blood pO2 (Temp corrected) 87.8 Arterial Blood HCO3 24.5 Arterial Blood Base Excess 0.8 Arterial Blood Oxygen Saturation 95.8 Amor Test N/A Arterial Blood Gas Puncture Site A-Line Arterial Blood Carboxyhemoglobin 0.2 Arterial Blood Methemoglobin 0.6 Blood Gas A-a O2 Differential 228.7 H Oxyhemoglobin Percent 95.0 Total Hemoglobin 9.2 L Blood Gas Temperature 37.0 Blood Gas Respiration Rate 14.0 Blood Gas Actual Respiration Rate 14 Blood Gas Modality VENT - AC FiO2 50.0 Blood Gas Tidal Volume 500.0 Blood Gas Low PEEP Setting 5.0 Blood Gas Inspiratory Pressure 30.0 Blood Gas Notified Whom AA Blood Gas Notified Time 12/05/2016 5:40:03 AM Bedside Glucose 138 106 108 Test 12/05/16 08:00 12/05/16 09:47 White Blood Count 11.1 H Red Blood Count 2.96 L Hemoglobin 8.8 L Hematocrit 25.6 L Mean Corpuscular Volume 86.5 Mean Corpuscular Hemoglobin 29.7 Mean Corpuscular Hemoglobin Concent 34.4 Red Cell Distribution Width 13.8 Platelet Count 245 Mean Platelet Volume 10.0 Neutrophils % 72.2 Lymphocytes % 17.7 Monocytes % 9.2 Eosinophils % 0.1 Basophils % 0.4 Nucleated Red Blood Cells % 0.0 Neutrophils # 8.0 H Lymphocytes # 2.0 Monocytes # 1.0 H Eosinophils # 0.0 Basophils # 0.0 Nucleated Red Blood Cells # 0.0 Prothrombin Time 14.3 H Prothrombin Time Ratio 1.1 INR International Normalized Ratio 1.11 Activated Partial Thromboplast Time 40.5 H Bedside Glucose 212 Medications Medications Current Medications Aspirin (Aspirin) 81 mg DAILY PO Last administered on 12/03/16 08:19; Admin Dose 81 MG; Start 12/03/16 at 09:00 Al Hydrox/Mg Hydrox/Simethicone (Mag-Al Plus) 30 ml Q4H PRN PO GASTROINTESTINAL UPSET; Start 12/02/16 at 15:00 Ondansetron HCl (Zofran Inj) 4 mg Q4H PRN IV NAUSEA AND/OR VOMITING; Start at 15:00 Duloxetine HCl (Cymbalta) 20 mg DAILY PO Last administered on 12/03/16 08:19; Admin Dose 20 MG; Start 12/03/16 at 09:00 Acetaminophen/ Hydrocodone Bitart ([place] (10/325)) 1 tab Q4H PRN PO PAIN; Start 12/02/16 at 15:00 Zolpidem Tartrate (Ambien) 5 mg HS PRN PO INSOMNIA; Start 12/02/16 at 17:00 Lorazepam (Ativan) 0.5 mg Q6H PRN IV ANXIETY Last administered on 12/05/16 09: 08; Admin Dose 0.5 MG; Start 12/02/16 at 15:00 Ondansetron HCl (Zofran Tab) 4 mg Q6H PRN PO NAUSEA AND/OR VOMITING; Start at 15:00 Nitroglycerin (Nitroglycerin (Sl Tab) 0.4 Mg) 1 tab Q5M PRN SL CHEST PAIN; Start 12/02/16 at 15:00 Acetaminophen (Tylenol Tab) 650 mg Q6H PRN PO PAIN LEVEL 1-3 OR FEVER Last administered on 12/03/16 12:40; Admin Dose 650 MG; Start 12/02/16 at 15:00 Acetaminophen (Tylenol Supp) 650 mg Q6H PRN [place] PAIN LEVEL 1-3 OR FEVER Last administered on 12/05/16 03:52; Admin Dose 650 MG; Start 12/02/16 at 15:00 Docusate Sodium (Colace) 100 mg Q12H PRN PO CONSTIPATION; Start 12/02/16 at 15: 00 Miscellaneous Information 1 ea NOTE XX ; Start 12/02/16 at 18:30 Glucose (Glutose) 15 gm Q15M PRN PO DECREASED GLUCOSE; Start 12/02/16 at 18:30 Glucose (Glutose) 22.5 gm Q15M PRN PO DECREASED GLUCOSE; Start 12/02/16 at 18: 30 Dextrose (D50w Syringe) 25 ml Q15M PRN IV DECREASED GLUCOSE Last administered on 12/04/16 23:54; Admin Dose 25 ML; Start 12/02/16 at 18:30 Dextrose (D50w Syringe) 50 ml Q15M PRN IV DECREASED GLUCOSE; Start 12/02/16 at 18:30 Glucagon (Glucagen) 1 mg Q15M PRN IM DECREASED GLUCOSE; Start 12/02/16 at 18:30 Glucose (Glutose) 15 gm Q15M PRN BUCCAL DECREASED GLUCOSE; Start 12/02/16 at 18 :30 Atorvastatin Calcium (Lipitor) 80 mg HS PO Last administered on 12/03/16 20:49 ; Admin Dose 80 MG; Start 12/02/16 at 21:00 Pregabalin (Lyrica) 75 mg BID PO Last administered on 12/03/16 21:08; Admin Dose 75 MG; Start 12/02/16 at 21:00 Morphine Sulfate 30 mg 30 mg Q8H PO Last administered on 12/03/16 22:55; Admin Dose 30 MG; Start 12/02/16 at 22:30 Potassium Chloride 40 meq/ Calcium Chloride 1 gm/Dextrose/ Sodium Chloride 1, 000 ml @ 60 mls/hr [id number] IV Last administered on 12/04/16 22:46; Admin Dose 60 MLS/HR; Start 12/04/16 at 21:30 Propofol (Diprivan) 100 ml @ 2.865 mls/ hr Q12H IV Last administered on 05:41; Admin Dose 15.7 MLS/HR; Start 12/04/16 at 21:30 Diagnostic Test (Pha) (Accu-Chek) 1 ea Q1H XX Last administered on 12/05/16 09 :50; Admin Dose 1 EA; Start 12/04/16 at 22:30 Dextrose (D50w Syringe) 25 ml Q15M PRN IV Till BS 80 mg/dL or above x2; Start 12/04/16 at 22:30 Dextrose 50 ml 50 ml Q15M PRN IV Till BS 80 mg/dL or above x2; Start 12/04/16 at 22:30 Nitroglycerin/ Dextrose 250 ml @ 1.5 mls/hr TITRATE IV ; Start 12/04/16 at 22: 30 Dopamine HCl/ Dextrose 250 ml @ 7.163 mls/ hr TITRATE IV ; Start 12/04/16 at 22 :30 Cefazolin Sodium (Ancef 1 Gm/50 ml (Pmx)) 50 ml @ 100 mls/hr Q8 IVPB Last administered on 12/05/16 05:34; Admin Dose 100 MLS/HR; Start 12/05/16 at 06:00 ; Stop 12/05/16 at 22:29 Morphine Sulfate (morphine) 1 mg Q10MIN PRN IV PAIN WHILE INTUBATED Last administered on 12/05/16 08:32; Admin Dose 1 MG; Start 12/04/16 at 22:30 Pantoprazole (Protonix Iv) 40 mg DAILY@06 IV Last administered on 12/05/16 05: 34; Admin Dose 40 MG; Start 12/05/16 at 06:00 NAHUM BLAIR MD Dec 05, 2016 10:30
[2016-12-05 11:07] LABS: AADO2 Arterial 205.4 mmHg (7.0-24.0); Arterial Base Excess -2.4 mmol/L (-3.0-3); Arterial COHb 0.3 % (0.0-3.0); Arterial Fraction of Oxyhgb 93.5 % (93.0-99.0); Arterial HCO3 21.4 mmol/L (22.0-26.0); Arterial MetHb 0.3 % (0.0-1.5); Arterial Total Hemglobin 10.2 g/dl (12.0-18.0); Blood Gas PS 10; MODE VENT - CPAP
[2016-12-05] MEDS ORDERED: morphine 10 MG INJ IM ONE (11:30)
--- NOTE | 2016-12-05 11:55 | PN ---
Date/Time of Note Date/Time of Note DATE: 12/05/16 TIME: 11:53 Assessment/Plan VTE Prophylaxis VTE Prophylaxis Intervention: other Lines/Catheters IV Catheter Type (from [facility]): Central line still needed: No Urinary Cath still in place: No Assessment/Plan Chief Complaint/Hosp Course IMPRESSION: 1. Coronary artery disease. 2. Status post myocardial infarction. 3. Hepatitis C, by report. 4 Hx IVDU SP CABG Hemodynamically stable Extubated Will DC Lines, Ste[place] start Diet Discussed with the patient. All questions answered. Problems: Subjective 24 Hr Interval Summary Cardiovascular: no complaints Gastrointestinal: no complaints Genitourinary: no complaints Musculoskeletal: no complaints Skin: no complaints Neurologic: no complaints Exam/Review of Systems Vital Signs Vitals Vital Signs Date Time Temp Pulse Resp B/P Pulse Ox O2 Delivery O2 Flow Rate FiO2 12/05/16 10:55 97 10.0 12/05/16 10:15 99 37 119/57 12/05/16 10:00 100.4 Mechanical Ventilator 12/05/16 08:45 45 Intake and Output 12/04/16 12/04/16 12/05/16 14:59 22:59 06:59 Intake Total 193 ml 3812 ml 1750.6 ml Output Total 0 ml 2994 ml 739 ml Balance 193 ml 818 ml 1011.6 ml Exam ENMT: nl external ears & nose, nl lips & teeth, nl nasal mucosa & septum Neck: non-tender, supple Respiratory: clear to auscultation, normal air movement Cardiovascular: nl pulses, regular rate and rhythm Gastrointestinal: nl liver, spleen, non-tender, soft Results Result Diagram: 12/05/16 0800 12/05/16 0328 Results 24 hrs Laboratory Tests Test 12/04/16 12:12 12/04/16 20:40 12/04/16 20:49 12/04/16 21:00 Bedside Glucose 106 Blood Gas Specimen Source BLMV Blood arterial Arterial Blood Date Drawn 12/04/2016 9:15:00 PM 12/04/2016 9:10:10 PM Arterial Blood Gas Puncture Site VENOUS LINE A-Line Amor Test N/A N/A Mixed Venous Blood PO2 43.2 H Mixed Venous Blood O2 Saturation 79.3 H Mixed Venous Blood Total Hemoglobin 10.7 Mixed Venous Blood Oxyhemoglobin 78.7 Mixed Venous Bld Carboxyhemoglobin 0.3 Mixed Venous Blood Methemoglobin 0.5 Blood Gas Temperature 37.0 37.0 Blood Gas Respiration Rate 14.0 14.0 Blood Gas Actual Respiration Rate 14 14 Blood Gas Modality VENT - AC VENT - AC FiO2 60.0 60.0 Blood Gas Tidal Volume 500.0 500.0 Blood Gas Low PEEP Setting 5.0 5.0 Blood Gas Notified Whom GURDEEP MACKENZIE Blood Gas Notified Time 12/04/2016 9:28:32 PM 12/04/2016 9:22:48 PM Arterial Blood pH (Temp corrected) 7.414 Arterial Blood pCO2 (Temp correct) 41.8 Arterial Blood pO2 (Temp corrected) 88.5 Arterial Blood HCO3 26.1 H Arterial Blood Base Excess 1.4 Arterial Blood Oxygen Saturation 95.8 Arterial Blood Carboxyhemoglobin 0.3 Arterial Blood Methemoglobin 0.5 Blood Gas A-a O2 Differential 293.3 H Oxyhemoglobin Percent 95.0 Total Hemoglobin 11.2 L White Blood Count 17.3 #H Red Blood Count 3.12 #L Hemoglobin 9.4 #L Hematocrit 27.2 #L Mean Corpuscular Volume 87.2 Mean Corpuscular Hemoglobin 30.1 Mean Corpuscular Hemoglobin Concent 34.6 Red Cell Distribution Width 13.1 Platelet Count 253 Mean Platelet Volume 9.9 Neutrophils % 70.0 Lymphocytes % 21.8 Monocytes % 6.9 Eosinophils % 0.3 Basophils % 0.2 Nucleated Red Blood Cells % 0.0 Neutrophils # 12.1 H Lymphocytes # 3.8 H Monocytes # 1.2 H Eosinophils # 0.1 Basophils # 0.0 Nucleated Red Blood Cells # 0.0 Prothrombin Time 14.6 H Prothrombin Time Ratio 1.1 INR International Normalized Ratio 1.14 Activated Partial Thromboplast Time 28.5 Sodium Level 147 H Potassium Level 3.3 L Chloride Level 104 Carbon Dioxide Level 31 Anion Gap 15 Blood Urea Nitrogen 10 Creatinine 0.66 Glucose Level 74 Calcium Level 8.7 Magnesium Level 2.4 Test 12/04/16 23:09 12/04/16 23:51 12/05/16 00:57 12/05/16 02:06 Bedside Glucose 65 L 69 L 105 145 Test 12/05/16 03:00 12/05/16 03:28 12/05/16 04:06 12/05/16 04:59 Bedside Glucose 176 191 180 White Blood Count 10.8 # Red Blood Count 2.81 L Hemoglobin 8.4 L Hematocrit 24.4 L Mean Corpuscular Volume 86.8 Mean Corpuscular Hemoglobin 29.9 Mean Corpuscular Hemoglobin Concent 34.4 Red Cell Distribution Width 13.7 Platelet Count 231 Mean Platelet Volume 10.1 Neutrophils % 75.9 Lymphocytes % 15.1 Monocytes % 7.8 Eosinophils % 0.1 Basophils % 0.3 Nucleated Red Blood Cells % 0.0 Neutrophils # 8.2 H Lymphocytes # 1.6 Monocytes # 0.9 Eosinophils # 0.0 Basophils # 0.0 Nucleated Red Blood Cells # 0.0 Prothrombin Time 14.6 H Prothrombin Time Ratio 1.1 INR International Normalized Ratio 1.14 Activated Partial Thromboplast Time 49.0 H Sodium Level 144 Potassium Level 4.6 Chloride Level 109 Carbon Dioxide Level 29 Anion Gap 11 Blood Urea Nitrogen 12 Creatinine 0.69 Glucose Level 167 Calcium Level 8.4 Magnesium Level 2.0 Test 12/05/16 05:00 12/05/16 06:23 12/05/16 06:58 12/05/16 07:51 Blood Gas Specimen Source Blood arterial Arterial Blood Date Drawn 12/05/2016 5:30:08 AM Arterial Blood pH (Temp corrected) 7.456 H Arterial Blood pCO2 (Temp correct) 35.6 Arterial Blood pO2 (Temp corrected) 87.8 Arterial Blood HCO3 24.5 Arterial Blood Base Excess 0.8 Arterial Blood Oxygen Saturation 95.8 Amor Test N/A Arterial Blood Gas Puncture Site A-Line Arterial Blood Carboxyhemoglobin 0.2 Arterial Blood Methemoglobin 0.6 Blood Gas A-a O2 Differential 228.7 H Oxyhemoglobin Percent 95.0 Total Hemoglobin 9.2 L Blood Gas Temperature 37.0 Blood Gas Respiration Rate 14.0 Blood Gas Actual Respiration Rate 14 Blood Gas Modality VENT - AC FiO2 50.0 Blood Gas Tidal Volume 500.0 Blood Gas Low PEEP Setting 5.0 Blood Gas Inspiratory Pressure 30.0 Blood Gas Notified Whom AA Blood Gas Notified Time 12/05/2016 5:40:03 AM Bedside Glucose 138 106 108 Test 12/05/16 08:00 12/05/16 09:46 12/05/16 09:47 12/05/16 10:45 White Blood Count 11.1 H Red Blood Count 2.96 L Hemoglobin 8.8 L Hematocrit 25.6 L Mean Corpuscular Volume 86.5 Mean Corpuscular Hemoglobin 29.7 Mean Corpuscular Hemoglobin Concent 34.4 Red Cell Distribution Width 13.8 Platelet Count 245 Mean Platelet Volume 10.0 Neutrophils % 72.2 Lymphocytes % 17.7 Monocytes % 9.2 Eosinophils % 0.1 Basophils % 0.4 Nucleated Red Blood Cells % 0.0 Neutrophils # 8.0 H Lymphocytes # 2.0 Monocytes # 1.0 H Eosinophils # 0.0 Basophils # 0.0 Nucleated Red Blood Cells # 0.0 Prothrombin Time 14.3 H Prothrombin Time Ratio 1.1 INR International Normalized Ratio 1.11 Activated Partial Thromboplast Time 40.5 H Blood Gas Specimen Source Blood arterial Arterial Blood Date Drawn 12/05/2016 9:48:00 AM Arterial Blood pH (Temp corrected) 7.426 Arterial Blood pCO2 (Temp correct) 33.3 L Arterial Blood pO2 (Temp corrected) 77.6 L Arterial Blood HCO3 21.4 L Arterial Blood Base Excess -2.4 Arterial Blood Oxygen Saturation 94.1 L Amor Test N/A Arterial Blood Gas Puncture Site A-Line Arterial Blood Carboxyhemoglobin 0.3 Arterial Blood Methemoglobin 0.3 Blood Gas A-a O2 Differential 205.4 H Oxyhemoglobin Percent 93.5 Total Hemoglobin 10.2 L Blood Gas Temperature 37.0 Blood Gas Actual Respiration Rate 26 Blood Gas Modality VENT - CPAP FiO2 45.0 Blood Gas Tidal Volume 384.0 Blood Gas Low PEEP Setting 5.0 Blood Gas Pressure Support 10 Blood Gas Critical Value Read Back ALYSON ANDRES Blood Gas Notified Whom MALINDA RAMIRES Blood Gas Notified Time 12/05/2016 9:59:00 AM Bedside Glucose 212 238 H Medications Medications Current Medications Aspirin (Aspirin) 81 mg DAILY PO Last administered on 12/03/16 08:19; Admin Dose 81 MG; Start 12/03/16 at 09:00 Al Hydrox/Mg Hydrox/Simethicone (Mag-Al Plus) 30 ml Q4H PRN PO GASTROINTESTINAL UPSET; Start 12/02/16 at 15:00 Ondansetron HCl (Zofran Inj) 4 mg Q4H PRN IV NAUSEA AND/OR VOMITING; Start at 15:00 Duloxetine HCl (Cymbalta) 20 mg DAILY PO Last administered on 12/03/16 08:19; Admin Dose 20 MG; Start 12/03/16 at 09:00 Acetaminophen/ Hydrocodone Bitart ([place] (10)) 1 tab Q4H PRN PO PAIN; Start 12/02/16 at 15:00 Zolpidem Tartrate (Ambien) 5 mg HS PRN PO INSOMNIA; Start 12/02/16 at 17:00 Lorazepam (Ativan) 0.5 mg Q6H PRN IV ANXIETY Last administered on 12/05/16 09: 08; Admin Dose 0.5 MG; Start 12/02/16 at 15:00 Ondansetron HCl (Zofran Tab) 4 mg Q6H PRN PO NAUSEA AND/OR VOMITING; Start at 15:00 Nitroglycerin (Nitroglycerin (Sl Tab) 0.4 Mg) 1 tab Q5M PRN SL CHEST PAIN; Start 12/02/16 at 15:00 Acetaminophen (Tylenol Tab) 650 mg Q6H PRN PO PAIN LEVEL 1-3 OR FEVER Last administered on 12/03/16 12:40; Admin Dose 650 MG; Start 12/02/16 at 15:00 Acetaminophen (Tylenol Supp) 650 mg Q6H PRN [place] PAIN LEVEL 1-3 OR FEVER Last administered on 12/05/16 03:52; Admin Dose 650 MG; Start 12/02/16 at 15:00 Docusate Sodium (Colace) 100 mg Q12H PRN PO CONSTIPATION; Start 12/02/16 at 15: 00 Miscellaneous Information 1 ea NOTE XX ; Start 12/02/16 at 18:30 Glucose (Glutose) 15 gm Q15M PRN PO DECREASED GLUCOSE; Start 12/02/16 at 18:30 Glucose (Glutose) 22.5 gm Q15M PRN PO DECREASED GLUCOSE; Start 12/02/16 at 18: 30 Dextrose (D50w Syringe) 25 ml Q15M PRN IV DECREASED GLUCOSE Last administered on 12/04/16 23:54; Admin Dose 25 ML; Start 12/02/16 at 18:30 Dextrose (D50w Syringe) 50 ml Q15M PRN IV DECREASED GLUCOSE; Start 12/02/16 at 18:30 Glucagon (Glucagen) 1 mg Q15M PRN IM DECREASED GLUCOSE; Start 12/02/16 at 18:30 Glucose (Glutose) 15 gm Q15M PRN BUCCAL DECREASED GLUCOSE; Start 12/02/16 at 18 :30 Atorvastatin Calcium (Lipitor) 80 mg HS PO Last administered on 12/03/16 20:49 ; Admin Dose 80 MG; Start 12/02/16 at 21:00 Pregabalin (Lyrica) 75 mg BID PO Last administered on 12/03/16 21:08; Admin Dose 75 MG; Start 12/02/16 at 21:00 Morphine Sulfate 30 mg 30 mg Q8H PO Last administered on 12/03/16 22:55; Admin Dose 30 MG; Start 12/02/16 at 22:30 Potassium Chloride/Calcium Chloride/Dextrose/ Sodium Chloride (KCl/Ca Chloride/ D5-1/4ns) 1,000 ml @ 60 mls/hr [id number] IV Last administered on 12/04/16 22:46 ; Admin Dose 60 MLS/HR; Start 12/04/16 at 21:30 Diagnostic Test (Pha) (Accu-Chek) 1 ea Q1H XX Last administered on 12/05/16 10 :46; Admin Dose 1 EA; Start 12/04/16 at 22:30 Dextrose (D50w Syringe) 25 ml Q15M PRN IV Till BS 80 mg/dL or above x2; Start 12/04/16 at 22:30 Dextrose 50 ml 50 ml Q15M PRN IV Till BS 80 mg/dL or above x2; Start 12/04/16 at 22:30 Nitroglycerin/ Dextrose 250 ml @ 1.5 mls/hr TITRATE IV ; Start 12/04/16 at 22: 30 Dopamine HCl/ Dextrose 250 ml @ 7.163 mls/ hr TITRATE IV ; Start 12/04/16 at 22 :30 Cefazolin Sodium (Ancef 1 Gm/50 ml (Pmx)) 50 ml @ 100 mls/hr Q8 IVPB Last administered on 12/05/16 05:34; Admin Dose 100 MLS/HR; Start 12/05/16 at 06:00 ; Stop 12/05/16 at 22:29 Pantoprazole 40 mg 40 mg DAILY@06 IV Last administered on 12/05/16 05:34; Admin Dose 40 MG; Start 12/05/16 at 06:00 Magnesium Sulfate (Magnesium Sulfate 2 Gm/50 ml) 50 ml @ 25 mls/hr Q6 IVPB ; Start 12/05/16 at 12:00; Stop 12/06/16 at 01:59 Morphine Sulfate (morphine) 2 mg Q3H PRN IV PAIN; Start 12/05/16 at 11:30 RENETTA WATSON MD Dec 05, 2016 11:55
[2016-12-05] MEDS: MAGNESIUM SULFATE 2 GM/50 ML 50 ML IVPB SCH ×3 (11:58→23:38)
[2016-12-05] MEDS ORDERED: morphine 2 MG INJ IV ONE (12:30)
--- NOTE | 2016-12-05 12:49 | RADRPT ---
Vent Rate: 97 bpm RR Interval: 0 msec [place] Interval: 132 msec QRS Duration: 132 msec QT Interval: 444 msec QTC Interval: 563 msec P-R-T [place]: 81 - -27 - 39 degrees Sinus rhythm with occasional premature ventricular complexes and fusion complexes Right bundle branch block Septal infarct , age undetermined LADeviation Bifascicular block Abnormal ECG No Prior EKG For review Electronically Signed By: Jose Ramon Rubi [id number]
--- NOTE | 2016-12-05 12:58 | RADRPT ---
Vent Rate: 113 bpm RR Interval: 0 msec [place] Interval: 122 msec QRS Duration: 146 msec QT Interval: 372 msec QTC Interval: 510 msec P-R-T [place]: 79 - -44 - 126 degrees Sinus tachycardia with fusion complexes Left axis deviationLeft Anterior Hemiblock Right bundle branch block T wave abnormality, consider lateral ischemia Abnormal ECG Bifascicular block: RBBB \T\ LAFB [REASON: RBBB w/ left axis deviation] No previous tracing available for comparison Electronically Signed By: Jose Ramon Rubi [id number]
--- NOTE | 2016-12-05 13:01 | RADRPT ---
Vent Rate: 96 bpm RR Interval: 0 msec [place] Interval: 134 msec QRS Duration: 138 msec QT Interval: 384 msec QTC Interval: 485 msec P-R-T [place]: 87 - -41 - 31 degrees Sinus rhythm with occasional premature ventricular complexes and fusion complexes Left axis deviation left anterior hemiblock Cannot rule out Anteroseptal infarct , age undetermined Abnormal ECG Right bundle branch block [REASON: QRS 120 ms, terminal forces right] Bifascicular block: RBBB \T\ LAFB [REASON: RBBB w/ left axis deviation] No previous tracing available for comparison Electronically Signed By: Jose Ramon Rubi [id number]
[2016-12-05] MEDS: POTASSIUM CHLORIDE 40 MEQ, CALCIUM CHLORIDE 10% 1 GM in DEXTROSE 5%-0.225% NACL 970 ML IV SCH (13:58)
[2016-12-05 15:46] LABS: AADO2 Arterial 124.5 mmHg (7.0-24.0); Arterial Base Excess -0.5 mmol/L (-3.0-3); Arterial COHb 0.3 % (0.0-3.0); Arterial Fraction of Oxyhgb 92.6 % (93.0-99.0); Arterial HCO3 23.4 mmol/L (22.0-26.0); Arterial MetHb 0.3 % (0.0-1.5); Arterial Total Hemglobin 10.6 g/dl (12.0-18.0); MODE NASAL CANNULA
[2016-12-05] MEDS: ALBUTEROL/IPRATROPIUM (NEB) 3 ML AMP HHN PRN (16:21)
--- NOTE | 2016-12-05 16:25 | CONS ---
Date/Time of Note Date/Time of Note DATE: 12/05/16 TIME: 16:20 Assessment/Plan Assessment/Plan Additional Assessment/Plan Chest x-ray was reviewed from today which is showing atelectasis involving the left lower lobe. With mediastinal shift towards the left. Next Assessment recommendations; 1. Patient admitted for acute [place] status post CABG surgery. 2. Post extubation hypoxemia likely from left lower lobe atelectasis. 3. History of COPD. 4. Underlying obesity. 5. Mild hyperventilation. Patient however appearing fairly comfortable at this point. There is no evidence of any CO2 retention. Add DuoNeb 4 times daily, continue incentive telemetry. Obtain a follow-up chest x-ray tomorrow morning. BiPAP on a as needed basis overnight. Consultation Date/Type/Reason Admit Date/Time Dec 02, 2016 at 17:14 Date of Consultation: Dec 05, 2016 Type of Consultation: Pulmonary/critical care Reason for Consultation Pulmonary consultation requested for evaluation of post extubation hypoxemia. Next History presenting; patient is a very pleasant 66-year-old F Citizen Of [place] lady who was admitted for complaint of chest pain patient was diagnosed with acute [place] underwent coronary artery bypass surgery the patient was extubated a short while ago and the nurses called me with a complaint of the patient was having slightly altered mental status and was getting more tachypneic and hypoxemic. She was immediately evaluated at bedside. The patient is currently sitting in a chair and according to her she is getting better now the patient is quite awake and alert. Able to talk somewhat. History was obtained from medical records. Next Past medical history; 1. Patient with a history of diabetes. 2. Chronic pain. 3. Peripheral neuropathy. 4. No prior history of coronary artery disease. Dictation; were reviewed. Next Allergies; are none. Next Social history; patient is a 1 pack-a-day smoker. Family history; patient is single lives by herself. And is dependent upon others for daily care. Next Occupational history; patient has had visiting his occupations currently on disability. Review of systems; limited review of systems could be obtained to the patient is quite hoarse due to recent extubation. According to her shortness breath is improving. She denies any chest pain. Any abdominal pain, nausea vomiting. Any fever or chills. General exam; elderly lady, awake alert currently in no distress. Cardiovascular: no complaints Gastrointestinal: no complaints Genitourinary: no complaints Musculoskeletal: no complaints Skin: no complaints Neurologic: no complaints Past Medical History Medical History: diabetes, high cholesterol, hypertension Social History Alcohol Use: none Smoking Status: Heavy tobacco smoker Drug Use: none Exam/Review of Systems Vital Signs Vitals Vital Signs Date Time Temp Pulse Resp B/P Pulse Ox O2 Delivery O2 Flow Rate FiO2 12/05/16 15:45 97 50 112/55 99 Mask 10.0 12/05/16 15:00 99.9 12/05/16 08:45 45 Intake and Output 12/04/16 12/04/16 12/05/16 15:00 23:00 07:00 Intake Total 193 ml 3812 ml 1750.6 ml Output Total 0 ml 3129 ml 634 ml Balance 193 ml 683 ml 1116.6 ml Exam HEENT examination; supple neck, no JVD. No lymphadenopathy. Midline trachea. No thyromegaly. Pharynx is clear. Patient does not multiple carious teeth. Bilateral intraocular lens implants are present. Chest examination diminished breath on lung bases more pronounced in left lower lobe. S1-S2 audible, no murmurs. Regular rhythm. There is a dressing applied over the sternum. There is a chest tube in place. Abdomen examination; protuberant. Bowel sounds audible. Nontender. Extremity exam is; no peripheral edema. Pulses 1+ bilaterally. There is no clubbing. CONTROLS DESIGN ENGINEER examination; cranial nerves are grossly intact. No motor deficit. Results Result Diagram: 12/05/16 0800 12/05/16 0328 Results 24 hrs Laboratory Tests Test 12/04/16 20:40 12/04/16 20:49 12/04/16 21:00 12/04/16 23:09 Blood Gas Specimen Source [facility] Blood arterial Arterial Blood Date Drawn 12/04/2016 9:15:00 PM 12/04/2016 9:10:10 PM Arterial Blood Gas Puncture Site VENOUS LINE A-Line Amor Test N/A N/A Mixed Venous Blood PO2 43.2 H Mixed Venous Blood O2 Saturation 79.3 H Mixed Venous Blood Total Hemoglobin 10.7 Mixed Venous Blood Oxyhemoglobin 78.7 Mixed Venous Bld Carboxyhemoglobin 0.3 Mixed Venous Blood Methemoglobin 0.5 Blood Gas Temperature 37.0 37.0 Blood Gas Respiration Rate 14.0 14.0 Blood Gas Actual Respiration Rate 14 14 Blood Gas Modality VENT - AC VENT - AC FiO2 60.0 60.0 Blood Gas Tidal Volume 500.0 500.0 Blood Gas Low PEEP Setting 5.0 5.0 Blood Gas Notified Whom GURDEEP MACKENZIE Blood Gas Notified Time 12/04/2016 9:28:32 PM 12/04/2016 9:22:48 PM Arterial Blood pH (Temp corrected) 7.414 Arterial Blood pCO2 (Temp correct) 41.8 Arterial Blood pO2 (Temp corrected) 88.5 Arterial Blood HCO3 26.1 H Arterial Blood Base Excess 1.4 Arterial Blood Oxygen Saturation 95.8 Arterial Blood Carboxyhemoglobin 0.3 Arterial Blood Methemoglobin 0.5 Blood Gas A-a O2 Differential 293.3 H Oxyhemoglobin Percent 95.0 Total Hemoglobin 11.2 L White Blood Count 17.3 #H Red Blood Count 3.12 #L Hemoglobin 9.4 #L Hematocrit 27.2 #L Mean Corpuscular Volume 87.2 Mean Corpuscular Hemoglobin 30.1 Mean Corpuscular Hemoglobin Concent 34.6 Red Cell Distribution Width 13.1 Platelet Count 253 Mean Platelet Volume 9.9 Neutrophils % 70.0 Lymphocytes % 21.8 Monocytes % 6.9 Eosinophils % 0.3 Basophils % 0.2 Nucleated Red Blood Cells % 0.0 Neutrophils # 12.1 H Lymphocytes # 3.8 H Monocytes # 1.2 H Eosinophils # 0.1 Basophils # 0.0 Nucleated Red Blood Cells # 0.0 Prothrombin Time 14.6 H Prothrombin Time Ratio 1.1 INR International Normalized Ratio 1.14 Activated Partial Thromboplast Time 28.5 Sodium Level 147 H Potassium Level 3.3 L Chloride Level 104 Carbon Dioxide Level 31 Anion Gap 15 Blood Urea Nitrogen 10 Creatinine 0.66 Glucose Level 74 Calcium Level 8.7 Magnesium Level 2.4 Bedside Glucose 65 L Test 12/04/16 23:51 12/05/16 00:57 12/05/16 02:06 12/05/16 03:00 Bedside Glucose 69 L 105 145 176 Test 12/05/16 03:28 12/05/16 04:06 12/05/16 04:59 12/05/16 05:00 White Blood Count 10.8 # Red Blood Count 2.81 L Hemoglobin 8.4 L Hematocrit 24.4 L Mean Corpuscular Volume 86.8 Mean Corpuscular Hemoglobin 29.9 Mean Corpuscular Hemoglobin Concent 34.4 Red Cell Distribution Width 13.7 Platelet Count 231 Mean Platelet Volume 10.1 Neutrophils % 75.9 Lymphocytes % 15.1 Monocytes % 7.8 Eosinophils % 0.1 Basophils % 0.3 Nucleated Red Blood Cells % 0.0 Neutrophils # 8.2 H Lymphocytes # 1.6 Monocytes # 0.9 Eosinophils # 0.0 Basophils # 0.0 Nucleated Red Blood Cells # 0.0 Prothrombin Time 14.6 H Prothrombin Time Ratio 1.1 INR International Normalized Ratio 1.14 Activated Partial Thromboplast Time 49.0 H Sodium Level 144 Potassium Level 4.6 Chloride Level 109 Carbon Dioxide Level 29 Anion Gap 11 Blood Urea Nitrogen 12 Creatinine 0.69 Glucose Level 167 Calcium Level 8.4 Magnesium Level 2.0 Bedside Glucose 191 180 Blood Gas Specimen Source Blood arterial Arterial Blood Date Drawn 12/05/2016 5:30:08 AM Arterial Blood pH (Temp corrected) 7.456 H Arterial Blood pCO2 (Temp correct) 35.6 Arterial Blood pO2 (Temp corrected) 87.8 Arterial Blood HCO3 24.5 Arterial Blood Base Excess 0.8 Arterial Blood Oxygen Saturation 95.8 Amor Test N/A Arterial Blood Gas Puncture Site A-Line Arterial Blood Carboxyhemoglobin 0.2 Arterial Blood Methemoglobin 0.6 Blood Gas A-a O2 Differential 228.7 H Oxyhemoglobin Percent 95.0 Total Hemoglobin 9.2 L Blood Gas Temperature 37.0 Blood Gas Respiration Rate 14.0 Blood Gas Actual Respiration Rate 14 Blood Gas Modality VENT - AC FiO2 50.0 Blood Gas Tidal Volume 500.0 Blood Gas Low PEEP Setting 5.0 Blood Gas Inspiratory Pressure 30.0 Blood Gas Notified Whom AA Blood Gas Notified Time 12/05/2016 5:40:03 AM Test 12/05/16 06:23 12/05/16 06:58 12/05/16 07:51 12/05/16 08:00 Bedside Glucose 138 106 108 White Blood Count 11.1 H Red Blood Count 2.96 L Hemoglobin 8.8 L Hematocrit 25.6 L Mean Corpuscular Volume 86.5 Mean Corpuscular Hemoglobin 29.7 Mean Corpuscular Hemoglobin Concent 34.4 Red Cell Distribution Width 13.8 Platelet Count 245 Mean Platelet Volume 10.0 Neutrophils % 72.2 Lymphocytes % 17.7 Monocytes % 9.2 Eosinophils % 0.1 Basophils % 0.4 Nucleated Red Blood Cells % 0.0 Neutrophils # 8.0 H Lymphocytes # 2.0 Monocytes # 1.0 H Eosinophils # 0.0 Basophils # 0.0 Nucleated Red Blood Cells # 0.0 Prothrombin Time 14.3 H Prothrombin Time Ratio 1.1 INR International Normalized Ratio 1.11 Activated Partial Thromboplast Time 40.5 H Test 12/05/16 09:46 12/05/16 09:47 12/05/16 10:45 12/05/16 11:49 Blood Gas Specimen Source Blood arterial Arterial Blood Date Drawn 12/05/2016 9:48:00 AM Arterial Blood pH (Temp corrected) 7.426 Arterial Blood pCO2 (Temp correct) 33.3 L Arterial Blood pO2 (Temp corrected) 77.6 L Arterial Blood HCO3 21.4 L Arterial Blood Base Excess -2.4 Arterial Blood Oxygen Saturation 94.1 L Amor Test N/A Arterial Blood Gas Puncture Site A-Line Arterial Blood Carboxyhemoglobin 0.3 Arterial Blood Methemoglobin 0.3 Blood Gas A-a O2 Differential 205.4 H Oxyhemoglobin Percent 93.5 Total Hemoglobin 10.2 L Blood Gas Temperature 37.0 Blood Gas Actual Respiration Rate 26 Blood Gas Modality VENT - CPAP FiO2 45.0 Blood Gas Tidal Volume 384.0 Blood Gas Low PEEP Setting 5.0 Blood Gas Pressure Support 10 Blood Gas Critical Value Read Back ALYSON ANDRES Blood Gas Notified Whom MALINDA RAMIRES Blood Gas Notified Time 12/05/2016 9:59:00 AM Bedside Glucose 212 238 H 200 Test 12/05/16 12:50 12/05/16 13:40 12/05/16 14:40 12/05/16 15:34 Bedside Glucose 232 H 179 155 139 Test 12/05/16 15:39 Blood Gas Specimen Source Blood arterial Arterial Blood Date Drawn 12/05/2016 3:38:53 PM Arterial Blood pH (Temp corrected) 7.436 Arterial Blood pCO2 (Temp correct) 35.6 Arterial Blood pO2 (Temp corrected) 69.2 L Arterial Blood HCO3 23.4 Arterial Blood Base Excess -0.5 Arterial Blood Oxygen Saturation 93.2 L Amor Test N/A Arterial Blood Gas Puncture Site A-Line Arterial Blood Carboxyhemoglobin 0.3 Arterial Blood Methemoglobin 0.3 Blood Gas A-a O2 Differential 124.5 H Oxyhemoglobin Percent 92.6 L Total Hemoglobin 10.6 L Blood Gas Temperature 37.0 Blood Gas Actual Respiration Rate 34 Blood Gas Modality NASAL CANNULA FiO2 33.0 Blood Gas Critical Value Read Back RN Sangeeta ANDRES Blood Gas Notified Whom MALINDA RAMIRES Blood Gas Notified Time 12/05/2016 3:46:01 PM Medications Medications Current Medications Aspirin (Aspirin) 81 mg DAILY PO Last administered on 12/05/16 12:33; Admin Dose 81 MG; Start 12/03/16 at 09:00 Al Hydrox/Mg Hydrox/Simethicone (Mag-Al Plus) 30 ml Q4H PRN PO GASTROINTESTINAL UPSET; Start 12/02/16 at 15:00 Ondansetron HCl (Zofran Inj) 4 mg Q4H PRN IV NAUSEA AND/OR VOMITING; Start at 15:00 Duloxetine HCl (Cymbalta) 20 mg DAILY PO Last administered on 12/05/16 12:33; Admin Dose 20 MG; Start 12/03/16 at 09:00 Acetaminophen/ Hydrocodone Bitart ([place] (10/325)) 1 tab Q4H PRN PO PAIN; Start 12/02/16 at 15:00 Zolpidem Tartrate (Ambien) 5 mg HS PRN PO INSOMNIA; Start 12/02/16 at 17:00 Lorazepam (Ativan) 0.5 mg Q6H PRN IV ANXIETY Last administered on 12/05/16 09: 08; Admin Dose 0.5 MG; Start 12/02/16 at 15:00 Ondansetron HCl (Zofran Tab) 4 mg Q6H PRN PO NAUSEA AND/OR VOMITING; Start at 15:00 Nitroglycerin (Nitroglycerin (Sl Tab) 0.4 Mg) 1 tab Q5M PRN SL CHEST PAIN; Start 12/02/16 at 15:00 Acetaminophen (Tylenol Tab) 650 mg Q6H PRN PO PAIN LEVEL 1-3 OR FEVER Last administered on 12/03/16 12:40; Admin Dose 650 MG; Start 12/02/16 at 15:00 Acetaminophen (Tylenol Supp) 650 mg Q6H PRN IN PAIN LEVEL 1-3 OR FEVER Last administered on 12/05/16 03:52; Admin Dose 650 MG; Start 12/02/16 at 15:00 Docusate Sodium (Colace) 100 mg Q12H PRN PO CONSTIPATION; Start 12/02/16 at 15: 00 Miscellaneous Information 1 ea NOTE XX ; Start 12/02/16 at 18:30 Glucose (Glutose) 15 gm Q15M PRN PO DECREASED GLUCOSE; Start 12/02/16 at 18:30 Glucose (Glutose) 22.5 gm Q15M PRN PO DECREASED GLUCOSE; Start 12/02/16 at 18: 30 Dextrose (D50w Syringe) 25 ml Q15M PRN IV DECREASED GLUCOSE Last administered on 12/04/16 23:54; Admin Dose 25 ML; Start 12/02/16 at 18:30 Dextrose (D50w Syringe) 50 ml Q15M PRN IV DECREASED GLUCOSE; Start 12/02/16 at 18:30 Glucagon (Glucagen) 1 mg Q15M PRN IM DECREASED GLUCOSE; Start 12/02/16 at 18:30 Glucose (Glutose) 15 gm Q15M PRN BUCCAL DECREASED GLUCOSE; Start 12/02/16 at 18 :30 Atorvastatin Calcium (Lipitor) 80 mg HS PO Last administered on 12/03/16 20:49 ; Admin Dose 80 MG; Start 12/02/16 at 21:00 Pregabalin (Lyrica) 75 mg BID PO Last administered on 12/05/16 12:33; Admin Dose 75 MG; Start 12/02/16 at 21:00 Morphine Sulfate 30 mg 30 mg Q8H PO Last administered on 12/03/16 22:55; Admin Dose 30 MG; Start 12/02/16 at 22:30 Potassium Chloride 40 meq/ Calcium Chloride 1 gm/Dextrose/ Sodium Chloride 1, 000 ml @ 60 mls/hr [id number] IV Last administered on 12/04/16 22:46; Admin Dose 60 MLS/HR; Start 12/04/16 at 21:30 Nitroglycerin/ Dextrose 250 ml @ 1.5 mls/hr TITRATE IV ; Start 12/04/16 at 22: 30 Dopamine HCl/ Dextrose 250 ml @ 7.163 mls/ hr TITRATE IV ; Start 12/04/16 at 22 :30 Cefazolin Sodium (Ancef 1 Gm/50 ml (Pmx)) 50 ml @ 100 mls/hr Q8 IVPB Last administered on 12/05/16 14:59; Admin Dose 100 MLS/HR; Start 12/05/16 at 06:00 ; Stop 12/05/16 at 22:29 Pantoprazole 40 mg 40 mg DAILY@06 IV Last administered on 12/05/16 05:34; Admin Dose 40 MG; Start 12/05/16 at 06:00 Magnesium Sulfate (Magnesium Sulfate 2 Gm/50 ml) 50 ml @ 25 mls/hr Q6 IVPB Last administered on 12/05/16 11:58; Admin Dose 25 MLS/HR; Start 12/05/16 at 12 :00; Stop 12/06/16 at 01:59 Morphine Sulfate (morphine) 2 mg Q3H PRN IV PAIN; Start 12/05/16 at 11:30 Insulin Detemir (Levemir) 25 unit DAILY@08 SC ; Start 12/06/16 at 08:00 Diagnostic Test (Pha) (Accu-Chek) 02 XX ; Start 12/06/16 at 02:00 WILMER DUTTON Dec 05, 2016 16:25
[2016-12-05] MEDS: INSULIN ASPART [NOVOLOG] 3 ML PEN SC SCH ×2 (17:58→21:00)
[2016-12-05] MEDS: ATORVASTATIN 80 MG TAB PO SCH (20:59)
[2016-12-06] VITALS (35 sets, daily range): BP systolic 92–162; BP diastolic 57–135; PULSE 47–104; RESP 20–31
[2016-12-06] MEDS: ACCU-CHEK XX SCH (02:00)
[2016-12-06 05:04] LABS: ADD SCAN DIFF NO
[2016-12-06 05:12] LABS: ABNORMAL IP MESSAGE 1; BASOPHILS % 0.2 % (0.0-2.0); HEMATOCRIT 27.1 % (37.0-47.0); LYMPHOCYTES # 2.2 10^3/ul (0.8-2.9); LYMPHOCYTES % 10.5 % (15.0-51.0); MEAN CORPUSCULAR HEMOGLOBIN 29.5 pg (29.0-33.0); MEAN CORPUSCULAR HGB CONC 33.2 g/dl (32.0-37.0); MEAN CORPUSCULAR VOLUME 88.9 fl (82.0-101.0); MEAN PLATELET VOLUME 10.8 fl (7.4-10.4); MONOCYTE # 1.6 10^3/ul (0.3-0.9); MONOCYTES % 7.6 % (0.0-11.0); NEUTROPHIL # 16.7 10^3/ul (1.6-7.5); PLATELET COUNT 240 10^3/UL (140-415); RED BLOOD COUNT 3.05 10^6/ul (4.20-5.40); WHITE BLOOD COUNT 20.6 10^3/ul (4.8-10.8)
[2016-12-06 05:22] LABS: POTASSIUM 4.7 mmol/L (3.5-5.1)
[2016-12-06 05:24] LABS: CREATININE 0.9 mg/dl (0.44-1.00)
[2016-12-06 05:25] LABS: CALCIUM 8.6 mg/dl (8.4-10.2)
[2016-12-06] MEDS: PANTOPRAZOLE 40 MG INJ IV SCH (06:04)
[2016-12-06] MEDS: morphine (ER) 15 MG TAB PO SCH ×3 (06:29→23:29)
[2016-12-06] MEDS ORDERED: FUROSEMIDE 20 MG INJ ONE (07:27)
[2016-12-06] MEDS: morphine 2 MG INJ IV PRN ×4 (07:35→21:16)
[2016-12-06 07:43] LABS: AADO2 Arterial 441.1 mmHg (7.0-24.0); Allen Test ACCEPTAB; Arterial Base Excess -7.5 mmol/L (-3.0-3); Arterial COHb 0.3 % (0.0-3.0); Arterial Fraction of Oxyhgb 94.6 % (93.0-99.0); Arterial HCO3 18.1 mmol/L (22.0-26.0); Arterial MetHb 0.4 % (0.0-1.5); Arterial Total Hemglobin 10.4 g/dl (12.0-18.0); MODE MASK - SIMPLE
[2016-12-06] MEDS: INSULIN ASPART [NOVOLOG] 3 ML PEN SC SCH ×4 (07:43→20:38)
[2016-12-06] MEDS: POTASSIUM CHLORIDE 40 MEQ, CALCIUM CHLORIDE 10% 1 GM in DEXTROSE 5%-0.225% NACL 970 ML IV SCH ×2 (08:00→23:30)
[2016-12-06] MEDS ORDERED: INSULIN DETEMIR [LEVEMIR] 3ML CART SC SCH (08:00)
[2016-12-06] MEDS ORDERED: FUROSEMIDE 20 MG INJ IV ONE (08:00)
[2016-12-06] MEDS: PREGABALIN 25 MG CAP PO SCH ×2 (08:30→20:34)
[2016-12-06] MEDS: ASPIRIN 81 MG TAB PO SCH (08:30)
--- NOTE | 2016-12-06 09:14 | RADRPT ---
PROCEDURE: XR Chest. CLINICAL INDICATION: Chest pain TECHNIQUE: AP view of the chest was performed. COMPARISON: 12/05/2016 FINDINGS: Median sternotomy sutures and mediastinal drains are again demonstrated. Left-sided chest tube is present. No definite pneumothorax is identified. There is moderate pulmonary vascular congestive changes with bilateral pleural effusions. IMPRESSION: Postoperative changes consistent with recent CABG. No definite pneumothorax identified. Pulmonary vascular congestive changes, progressed since the prior exam. Trace bilateral pleural eff usions. RPTAT: QQ .Sarah Swartz MD, MD Date Time Electronically viewed and signed by .Sarah Swartz MD, MD on 12/06/2016 09:13 .M/
--- NOTE | 2016-12-06 09:52 | CONS ---
Date/Time of Note Date/Time of Note DATE: 12/06/16 TIME: 09:50 Assessment/Plan Assessment/Plan Additional Assessment/Plan Chest x-ray was reviewed from today which is showing mild congestive heart failure pattern. There is improved aeration involving the left lower lobe. Next Assessment recommendations; 1. Patient admitted for acute [place] underwent CABG surgery. 2. History of COPD. 3. Diabetes. 4. Left lower lobe atelectasis with significant interval improvement. 5. Hypoxemia. Continue current treatment. She was given Lasix 20 mg IV push 1 today with significant urine output with improvement in shortness of breath. Continue incentive spirometry at bedside. Continue BiPAP on a as needed basis. Consultation Date/Type/Reason Admit Date/Time Dec 02, 2016 at 17:14 Initial Consult Date 12/05/16 Type of Consultation: Pulmonary/critical care 24 HR Interval Summary Free Text/Dictation Patient condition is stable. Complains of chest pain at mid sternum from CABG surgery. Shortness of breath is improving. Denies any wheezing. Any fever chills. General exam; elderly lady, currently in no distress. Awake and alert. Exam/Review of Systems Vital Signs Vitals Vital Signs Date Time Temp Pulse Resp B/P Pulse Ox O2 Delivery O2 Flow Rate FiO2 12/06/16 08:12 83 12/06/16 08:00 98.2 27 115/67 98 Mask 12/06/16 08:00 10.0 12/06/16 02:22 50 Intake and Output 12/05/16 12/05/16 12/06/16 15:00 23:00 07:00 Intake Total 947.4 ml 1452 ml 220 ml Output Total 482 ml 588 ml 610 ml Balance 465.4 ml 864 ml -390 ml Exam HEENT examination; supple neck, no JVD. No lymphadenopathy. Midline trachea. No thyromegaly. Patient multiple carious teeth. It was a midsize reactive to light bilaterally. No neck masses. Next Chest examination : diminished breath sound bilaterally. No added sounds. Improved breath sounds left lower lobe. There is a dressing applied over the sternum. Chest tubes are in place. S1-S2 audible, no murmurs. Regular rhythm. Abdomen examination; soft, nontender. Bowel sounds audible. Extremity exam is; no peripheral edema. CLIENT ADVISOR examination; no focal deficit. Results Result Diagram: 12/06/16 0430 12/06/16 0430 Results 24 hrs Laboratory Tests Test 12/05/16 10:45 12/05/16 11:49 12/05/16 12:50 12/05/16 13:40 Bedside Glucose 238 H 200 232 H 179 Test 12/05/16 14:40 12/05/16 15:34 12/05/16 15:39 12/05/16 16:52 Bedside Glucose 155 139 138 Blood Gas Specimen Source Blood arterial Arterial Blood Date Drawn 12/05/2016 3:38:53 PM Arterial Blood pH (Temp corrected) 7.436 Arterial Blood pCO2 (Temp correct) 35.6 Arterial Blood pO2 (Temp corrected) 69.2 L Arterial Blood HCO3 23.4 Arterial Blood Base Excess -0.5 Arterial Blood Oxygen Saturation 93.2 L Amor Test N/A Arterial Blood Gas Puncture Site A-Line Arterial Blood Carboxyhemoglobin 0.3 Arterial Blood Methemoglobin 0.3 Blood Gas A-a O2 Differential 124.5 H Oxyhemoglobin Percent 92.6 L Total Hemoglobin 10.6 L Blood Gas Temperature 37.0 Blood Gas Actual Respiration Rate 34 Blood Gas Modality NASAL CANNULA FiO2 33.0 Blood Gas Critical Value Read Back ALYSON ANDRES Blood Gas Notified Whom MALINDA RAMIRES Blood Gas Notified Time 12/05/2016 3:46:01 PM Test 12/05/16 17:46 12/05/16 20:57 12/06/16 03:36 12/06/16 04:30 Bedside Glucose 172 282 H 333 H White Blood Count 20.6 #H Red Blood Count 3.05 L Hemoglobin 9.0 L Hematocrit 27.1 L Mean Corpuscular Volume 88.9 Mean Corpuscular Hemoglobin 29.5 Mean Corpuscular Hemoglobin Concent 33.2 Red Cell Distribution Width 14.0 Platelet Count 240 Mean Platelet Volume 10.8 H Neutrophils % 81.0 H Lymphocytes % 10.5 L Monocytes % 7.6 Eosinophils % 0.0 Basophils % 0.2 Nucleated Red Blood Cells % 0.0 Neutrophils # 16.7 H Lymphocytes # 2.2 Monocytes # 1.6 H Eosinophils # 0.0 Basophils # 0.0 Nucleated Red Blood Cells # 0.0 Sodium Level 134 L Potassium Level 4.7 Chloride Level 101 Carbon Dioxide Level 25 Anion Gap 13 Blood Urea Nitrogen 23 #H Creatinine 0.90 Glucose Level 314 H Calcium Level 8.6 Magnesium Level 3.2 H Test 12/06/16 05:35 12/06/16 07:41 12/06/16 09:09 Blood Gas Specimen Source Blood arterial Arterial Blood Date Drawn 12/06/2016 5:34:00 AM Arterial Blood pH (Temp corrected) 7.308 L Arterial Blood pCO2 (Temp correct) 36.9 Arterial Blood pO2 (Temp corrected) 90.6 Arterial Blood HCO3 18.1 L Arterial Blood Base Excess -7.5 L Arterial Blood Oxygen Saturation 95.3 Amor Test ACCEPTAB Arterial Blood Gas Puncture Site Left Radial Arterial Blood Carboxyhemoglobin 0.3 Arterial Blood Methemoglobin 0.4 Blood Gas A-a O2 Differential 441.1 H Oxyhemoglobin Percent 94.6 Total Hemoglobin 10.4 L Blood Gas Temperature 37.0 Blood Gas Modality MASK - SIMPLE FiO2 80.0 Blood Gas Notified Whom BR Blood Gas Notified Time 12/06/2016 5:47:00 AM Bedside Glucose 354 H 370 H Medications Medications Current Medications Aspirin (Aspirin) 81 mg DAILY PO Last administered on 12/06/16 08:30; Admin Dose 81 MG; Start 12/03/16 at 09:00 Al Hydrox/Mg Hydrox/Simethicone (Mag-Al Plus) 30 ml Q4H PRN PO GASTROINTESTINAL UPSET; Start 12/02/16 at 15:00 Ondansetron HCl (Zofran Inj) 4 mg Q4H PRN IV NAUSEA AND/OR VOMITING; Start at 15:00 Duloxetine HCl (Cymbalta) 20 mg DAILY PO Last administered on 12/05/16 12:33; Admin Dose 20 MG; Start 12/03/16 at 09:00 Acetaminophen/ Hydrocodone Bitart ([place] (10/325)) 1 tab Q4H PRN PO PAIN; Start 12/02/16 at 15:00 Zolpidem Tartrate (Ambien) 5 mg HS PRN PO INSOMNIA; Start 12/02/16 at 17:00 Lorazepam (Ativan) 0.5 mg Q6H PRN IV ANXIETY Last administered on 12/05/16 09: 08; Admin Dose 0.5 MG; Start 12/02/16 at 15:00 Ondansetron HCl (Zofran Tab) 4 mg Q6H PRN PO NAUSEA AND/OR VOMITING; Start at 15:00 Nitroglycerin (Nitroglycerin (Sl Tab) 0.4 Mg) 1 tab Q5M PRN SL CHEST PAIN; Start 12/02/16 at 15:00 Acetaminophen (Tylenol Tab) 650 mg Q6H PRN PO PAIN LEVEL 1-3 OR FEVER Last administered on 12/03/16 12:40; Admin Dose 650 MG; Start 12/02/16 at 15:00 Acetaminophen (Tylenol Supp) [address] PAIN LEVEL 1-3 OR FEVER Last administered on 12/05/16 03:52; Admin Dose 650 MG; Start 12/02/16 at 15:00 Docusate Sodium (Colace) 100 mg Q12H PRN PO CONSTIPATION; Start 12/02/16 at 15: 00 Miscellaneous Information 1 ea NOTE XX ; Start 12/02/16 at 18:30 Glucose (Glutose) 15 gm Q15M PRN PO DECREASED GLUCOSE; Start 12/02/16 at 18:30 Glucose (Glutose) 22.5 gm Q15M PRN PO DECREASED GLUCOSE; Start 12/02/16 at 18: 30 Dextrose (D50w Syringe) 25 ml Q15M PRN IV DECREASED GLUCOSE Last administered on 12/04/16 23:54; Admin Dose 25 ML; Start 12/02/16 at 18:30 Dextrose (D50w Syringe) 50 ml Q15M PRN IV DECREASED GLUCOSE; Start 12/02/16 at 18:30 Glucagon (Glucagen) 1 mg Q15M PRN IM DECREASED GLUCOSE; Start 12/02/16 at 18:30 Glucose (Glutose) 15 gm Q15M PRN BUCCAL DECREASED GLUCOSE; Start 12/02/16 at 18 :30 Atorvastatin Calcium (Lipitor) 80 mg HS PO Last administered on 12/05/16 20:59 ; Admin Dose 80 MG; Start 12/02/16 at 21:00 Pregabalin (Lyrica) 75 mg BID PO Last administered on 12/06/16 08:30; Admin Dose 75 MG; Start 12/02/16 at 21:00 Morphine Sulfate 30 mg 30 mg Q8H PO Last administered on 12/03/16 22:55; Admin Dose 30 MG; Start 12/02/16 at 22:30 Potassium Chloride 40 meq/ Calcium Chloride 1 gm/Dextrose/ Sodium Chloride 1, 000 ml @ 60 mls/hr [id number] IV Last administered on 12/06/16 08:00; Admin Dose 60 MLS/HR; Start 12/04/16 at 21:30 Nitroglycerin/ Dextrose 250 ml @ 1.5 mls/hr TITRATE IV ; Start 12/04/16 at 22: 30 Dopamine HCl/ Dextrose 250 ml @ 7.163 mls/ hr TITRATE IV ; Start 12/04/16 at 22 :30 Pantoprazole (Protonix Iv) 40 mg DAILY@06 IV Last administered on 12/06/16 06: 04; Admin Dose 40 MG; Start 12/05/16 at 06:00 Morphine Sulfate (morphine) 2 mg Q3H PRN IV PAIN Last administered on 07:35; Admin Dose 2 MG; Start 12/05/16 at 11:30 Insulin Detemir (Levemir) 25 unit DAILY@08 SC Last administered on 12/06/16 07 :47; Admin Dose 25 UNIT; Start 12/06/16 at 08:00 Diagnostic Test (Pha) (Accu-Chek) 1 ea 02 XX Last administered on 12/06/16 02: 00; Admin Dose 1 EA; Start 12/06/16 at 02:00 WILMER DUTTON Dec 06, 2016 09:52
--- NOTE | 2016-12-06 09:57 | PN ---
Date/Time of Note Date/Time of Note DATE: 12/06/16 TIME: 09:55 Assessment/Plan VTE Prophylaxis VTE Prophylaxis Intervention: other Lines/Catheters IV [facility] Type ([facility] Urinary Cath still in place: No Assessment/Plan Chief Complaint/Hosp Course IMPRESSION: 1. Coronary artery disease. 2. Status post myocardial infarction. 3. Hepatitis C, by report. 4 Hx IVDU SP CABG Hemodynamically stable Extubated Continue CT sxn Discussed with the patient. All questions answered. Problems: Subjective 24 Hr Interval Summary Gastrointestinal: no complaints Genitourinary: no complaints Musculoskeletal: no complaints Skin: no complaints Exam/Review of Systems Vital Signs Vitals Vital Signs Date Time Temp Pulse Resp B/P Pulse Ox O2 Delivery O2 Flow Rate FiO2 12/06/16 08:12 83 12/06/16 08:00 98.2 27 115/67 98 Mask 12/06/16 08:00 10.0 12/06/16 02:22 50 Intake and Output 12/05/16 12/05/16 12/06/16 15:00 23:00 07:00 Intake Total 947.4 ml 1452 ml 220 ml Output Total 482 ml 588 ml 610 ml Balance 465.4 ml 864 ml -390 ml Exam Neck: non-tender, supple Respiratory: clear to auscultation, normal air movement Cardiovascular: nl pulses, regular rate and rhythm Gastrointestinal: nl liver, spleen, non-tender, soft Results Result Diagram: 12/06/16 0430 12/06/16 0430 Results 24 hrs Laboratory Tests Test 12/05/16 10:45 12/05/16 11:49 12/05/16 12:50 12/05/16 13:40 Bedside Glucose 238 H 200 232 H 179 Test 12/05/16 14:40 12/05/16 15:34 12/05/16 15:39 12/05/16 16:52 Bedside Glucose 155 139 138 Blood Gas Specimen Source Blood arterial Arterial Blood Date Drawn 12/05/2016 3:38:53 PM Arterial Blood pH (Temp corrected) 7.436 Arterial Blood pCO2 (Temp correct) 35.6 Arterial Blood pO2 (Temp corrected) 69.2 L Arterial Blood HCO3 23.4 Arterial Blood Base Excess -0.5 Arterial Blood Oxygen Saturation 93.2 L Amor Test N/A Arterial Blood Gas Puncture Site A-Line Arterial Blood Carboxyhemoglobin 0.3 Arterial Blood Methemoglobin 0.3 Blood Gas A-a O2 Differential 124.5 H Oxyhemoglobin Percent 92.6 L Total Hemoglobin 10.6 L Blood Gas Temperature 37.0 Blood Gas Actual Respiration Rate 34 Blood Gas Modality NASAL CANNULA FiO2 33.0 Blood Gas Critical Value Read Back ALYSON ANDRES Blood Gas Notified Whom MALINDA RT Blood Gas Notified Time 12/05/2016 3:46:01 PM Test 12/05/16 17:46 12/05/16 20:57 12/06/16 03:36 12/06/16 04:30 Bedside Glucose 172 282 H 333 H White Blood Count 20.6 #H Red Blood Count 3.05 L Hemoglobin 9.0 L Hematocrit 27.1 L Mean Corpuscular Volume 88.9 Mean Corpuscular Hemoglobin 29.5 Mean Corpuscular Hemoglobin Concent 33.2 Red Cell Distribution Width 14.0 Platelet Count 240 Mean Platelet Volume 10.8 H Neutrophils % 81.0 H Lymphocytes % 10.5 L Monocytes % 7.6 Eosinophils % 0.0 Basophils % 0.2 Nucleated Red Blood Cells % 0.0 Neutrophils # 16.7 H Lymphocytes # 2.2 Monocytes # 1.6 H Eosinophils # 0.0 Basophils # 0.0 Nucleated Red Blood Cells # 0.0 Sodium Level 134 L Potassium Level 4.7 Chloride Level 101 Carbon Dioxide Level 25 Anion Gap 13 Blood Urea Nitrogen 23 #H Creatinine 0.90 Glucose Level 314 H Calcium Level 8.6 Magnesium Level 3.2 H Test 12/06/16 05:35 12/06/16 07:41 12/06/16 09:09 Blood Gas Specimen Source Blood arterial Arterial Blood Date Drawn 12/06/2016 5:34:00 AM Arterial Blood pH (Temp corrected) 7.308 L Arterial Blood pCO2 (Temp correct) 36.9 Arterial Blood pO2 (Temp corrected) 90.6 Arterial Blood HCO3 18.1 L Arterial Blood Base Excess -7.5 L Arterial Blood Oxygen Saturation 95.3 Amor Test ACCEPTAB Arterial Blood Gas Puncture Site Left Radial Arterial Blood Carboxyhemoglobin 0.3 Arterial Blood Methemoglobin 0.4 Blood Gas A-a O2 Differential 441.1 H Oxyhemoglobin Percent 94.6 Total Hemoglobin 10.4 L Blood Gas Temperature 37.0 Blood Gas Modality MASK - SIMPLE FiO2 80.0 Blood Gas Notified Whom BR Blood Gas Notified Time 12/06/2016 5:47:00 AM Bedside Glucose 354 H 370 H Medications Medications Current Medications Aspirin (Aspirin) 81 mg DAILY PO Last administered on 12/06/16 08:30; Admin Dose 81 MG; Start 12/03/16 at 09:00 Al Hydrox/Mg Hydrox/Simethicone (Mag-Al Plus) 30 ml Q4H PRN PO GASTROINTESTINAL UPSET; Start 12/02/16 at 15:00 Ondansetron HCl (Zofran Inj) 4 mg Q4H PRN IV NAUSEA AND/OR VOMITING; Start at 15:00 Duloxetine HCl (Cymbalta) 20 mg DAILY PO Last administered on 12/05/16 12:33; Admin Dose 20 MG; Start 12/03/16 at 09:00 Acetaminophen/ Hydrocodone Bitart ([place] (10/325)) 1 tab Q4H PRN PO PAIN; Start 12/02/16 at 15:00 Zolpidem Tartrate (Ambien) 5 mg HS PRN PO INSOMNIA; Start 12/02/16 at 17:00 Lorazepam (Ativan) 0.5 mg Q6H PRN IV ANXIETY Last administered on 12/05/16 09: 08; Admin Dose 0.5 MG; Start 12/02/16 at 15:00 Ondansetron HCl (Zofran Tab) 4 mg Q6H PRN PO NAUSEA AND/OR VOMITING; Start at 15:00 Nitroglycerin (Nitroglycerin (Sl Tab) 0.4 Mg) 1 tab Q5M PRN SL CHEST PAIN; Start 12/02/16 at 15:00 Acetaminophen (Tylenol Tab) 650 mg Q6H PRN PO PAIN LEVEL 1-3 OR FEVER Last administered on 12/03/16 12:40; Admin Dose 650 MG; Start 12/02/16 at 15:00 Acetaminophen (Tylenol Supp) 650 mg Q6H PRN AL PAIN LEVEL 1-3 OR FEVER Last administered on 12/05/16 03:52; Admin Dose 650 MG; Start 12/02/16 at 15:00 Docusate Sodium (Colace) 100 mg Q12H PRN PO CONSTIPATION; Start 12/02/16 at 15: 00 Miscellaneous Information 1 ea NOTE XX ; Start 12/02/16 at 18:30 Glucose (Glutose) 15 gm Q15M PRN PO DECREASED GLUCOSE; Start 12/02/16 at 18:30 Glucose (Glutose) 22.5 gm Q15M PRN PO DECREASED GLUCOSE; Start 12/02/16 at 18: 30 Dextrose (D50w Syringe) 25 ml Q15M PRN IV DECREASED GLUCOSE Last administered on 12/04/16 23:54; Admin Dose 25 ML; Start 12/02/16 at 18:30 Dextrose (D50w Syringe) 50 ml Q15M PRN IV DECREASED GLUCOSE; Start 12/02/16 at 18:30 Glucagon (Glucagen) 1 mg Q15M PRN IM DECREASED GLUCOSE; Start 12/02/16 at 18:30 Glucose (Glutose) 15 gm Q15M PRN BUCCAL DECREASED GLUCOSE; Start 12/02/16 at 18 :30 Atorvastatin Calcium (Lipitor) 80 mg HS PO Last administered on 12/05/16 20:59 ; Admin Dose 80 MG; Start 12/02/16 at 21:00 Pregabalin (Lyrica) 75 mg BID PO Last administered on 12/06/16 08:30; Admin Dose 75 MG; Start 12/02/16 at 21:00 Morphine Sulfate 30 mg 30 mg Q8H PO Last administered on 12/03/16 22:55; Admin Dose 30 MG; Start 12/02/16 at 22:30 Potassium Chloride 40 meq/ Calcium Chloride 1 gm/Dextrose/ Sodium Chloride 1, 000 ml @ 60 mls/hr [id number] IV Last administered on 12/06/16 08:00; Admin Dose 60 MLS/HR; Start 12/04/16 at 21:30 Nitroglycerin/ Dextrose 250 ml @ 1.5 mls/hr TITRATE IV ; Start 12/04/16 at 22: 30 Dopamine HCl/ Dextrose 250 ml @ 7.163 mls/ hr TITRATE IV ; Start 12/04/16 at 22 :30 Pantoprazole (Protonix Iv) 40 mg DAILY@06 IV Last administered on 12/06/16 06: 04; Admin Dose 40 MG; Start 12/05/16 at 06:00 Morphine Sulfate (morphine) 2 mg Q3H PRN IV PAIN Last administered on 07:35; Admin Dose 2 MG; Start 12/05/16 at 11:30 Insulin Detemir (Levemir) 25 unit DAILY@08 SC Last administered on 12/06/16 07 :47; Admin Dose 25 UNIT; Start 12/06/16 at 08:00 Diagnostic Test (Pha) (Accu-Chek) 1 ea 02 XX Last administered on 12/06/16 02: 00; Admin Dose 1 EA; Start 12/06/16 at 02:00 RENETTA WATSON MD Dec 06, 2016 09:57
--- NOTE | 2016-12-06 10:07 | PN ---
Date/Time of Note Date/Time of Note DATE: 12/06/16 TIME: 10:05 Assessment/Plan VTE Prophylaxis VTE Prophylaxis Intervention: other Lines/Catheters [facility] Type ([facility] Urinary Cath still in place: No Assessment/Plan Chief Complaint/Hosp Course ASSESSMENT AND PLAN: 1. Non-ST elevation myocardial infarction. The patient is status post left heart catheterization with a finding of multivessel coronary artery disease. Cardiothoracic surgeon consulted Postop day #2 status post CABG, continue aspirin , Lovenox, statin and monitor blood pressure 2. Obstructive coronary artery disease as above. Cardiothoracic surgeon has been consulted. Status post CABG, continue medical management 3. Essential hypertension, well controlled on medical management. 4. Dyslipidemia. Continue statin. 5. Major depression. Continue Cymbalta. 6. Diabetes mellitus. Continue insulin sliding scale, low carb diet. 7. Diabetic neuropathy. Continue Lyrica. 8. For deep venous thrombosis prophylaxis, continue Lovenox 9. For gastrointestinal prophylaxis, on proton pump inhibitor. We will continue to monitor patient closely. Further recommendations, management and treatment as per clinical course. Problems: Subjective 24 Hr Interval Summary Free Text/Dictation Patient continues to complain of having anterior thoracic pain Denies of having chest pain Difficulty with p.o. intake secondary to thoracic pain shortness of breath Exam/Review of Systems Vital Signs Vitals Vital Signs Date Time Temp Pulse Resp B/P Pulse Ox O2 Delivery O2 Flow Rate FiO2 12/06/16 08:12 83 12/06/16 08:00 98.2 27 115/67 98 Mask 12/06/16 08:00 10.0 12/06/16 02:22 50 Intake and Output 12/05/16 12/05/16 12/06/16 14:59 22:59 06:59 Intake Total 927.4 ml 1272 ml 420 ml Output Total 486 ml 574 ml 590 ml Balance 441.4 ml 698 ml -170 ml Exam General: The patient is well-developed, Not in acute distress. HEENT: Atraumatic, normocephalic. The pupils are equal and round . Neck: Supple with full range of motion. Chest: Surgical site is dry and clean, chest tube in place Lungs: Clear to auscultation bilaterally Heart: Normal S1-S2, Regular rhythm and rate. Abdomen: Soft , nontender, nondistended , bowel sounds are present. Extremities: Normal to inspection, no edema no cyanosis Neurologic: Normal mental status,The patient is awake, alert and oriented . Results Result Diagram: 12/06/16 0430 12/06/16 0430 Results 24 hrs Laboratory Tests Test 12/05/16 10:45 12/05/16 11:49 12/05/16 12:50 12/05/16 13:40 Bedside Glucose 238 H 200 232 H 179 Test 12/05/16 14:40 12/05/16 15:34 12/05/16 15:39 12/05/16 16:52 Bedside Glucose 155 139 138 Blood Gas Specimen Source Blood arterial Arterial Blood Date Drawn 12/05/2016 3:38:53 PM Arterial Blood pH (Temp corrected) 7.436 Arterial Blood pCO2 (Temp correct) 35.6 Arterial Blood pO2 (Temp corrected) 69.2 L Arterial Blood HCO3 23.4 Arterial Blood Base Excess -0.5 Arterial Blood Oxygen Saturation 93.2 L Amor Test N/A Arterial Blood Gas Puncture Site A-Line Arterial Blood Carboxyhemoglobin 0.3 Arterial Blood Methemoglobin 0.3 Blood Gas A-a O2 Differential 124.5 H Oxyhemoglobin Percent 92.6 L Total Hemoglobin 10.6 L Blood Gas Temperature 37.0 Blood Gas Actual Respiration Rate 34 Blood Gas Modality NASAL CANNULA FiO2 33.0 Blood Gas Critical Value Read Back ALYSON ANDRES Blood Gas Notified Whom MALINDA RAMIRES Blood Gas Notified Time 12/05/2016 3:46:01 PM Test 12/05/16 17:46 12/05/16 20:57 12/06/16 03:36 12/06/16 04:30 Bedside Glucose 172 282 H 333 H White Blood Count 20.6 #H Red Blood Count 3.05 L Hemoglobin 9.0 L Hematocrit 27.1 L Mean Corpuscular Volume 88.9 Mean Corpuscular Hemoglobin 29.5 Mean Corpuscular Hemoglobin Concent 33.2 Red Cell Distribution Width 14.0 Platelet Count 240 Mean Platelet Volume 10.8 H Neutrophils % 81.0 H Lymphocytes % 10.5 L Monocytes % 7.6 Eosinophils % 0.0 Basophils % 0.2 Nucleated Red Blood Cells % 0.0 Neutrophils # 16.7 H Lymphocytes # 2.2 Monocytes # 1.6 H Eosinophils # 0.0 Basophils # 0.0 Nucleated Red Blood Cells # 0.0 Sodium Level 134 L Potassium Level 4.7 Chloride Level 101 Carbon Dioxide Level 25 Anion Gap 13 Blood Urea Nitrogen 23 #H Creatinine 0.90 Glucose Level 314 H Calcium Level 8.6 Magnesium Level 3.2 H Test 12/06/16 05:35 12/06/16 07:41 12/06/16 09:09 Blood Gas Specimen Source Blood arterial Arterial Blood Date Drawn 12/06/2016 5:34:00 AM Arterial Blood pH (Temp corrected) 7.308 L Arterial Blood pCO2 (Temp correct) 36.9 Arterial Blood pO2 (Temp corrected) 90.6 Arterial Blood HCO3 18.1 L Arterial Blood Base Excess -7.5 L Arterial Blood Oxygen Saturation 95.3 Amor Test ACCEPTAB Arterial Blood Gas Puncture Site Left Radial Arterial Blood Carboxyhemoglobin 0.3 Arterial Blood Methemoglobin 0.4 Blood Gas A-a O2 Differential 441.1 H Oxyhemoglobin Percent 94.6 Total Hemoglobin 10.4 L Blood Gas Temperature 37.0 Blood Gas Modality MASK - SIMPLE FiO2 80.0 Blood Gas Notified Whom BR Blood Gas Notified Time 12/06/2016 5:47:00 AM Bedside Glucose 354 H 370 H Medications Medications Current Medications Aspirin (Aspirin) 81 mg DAILY PO Last administered on 12/06/16 08:30; Admin Dose 81 MG; Start 12/03/16 at 09:00 Al Hydrox/Mg Hydrox/Simethicone (Mag-Al Plus) 30 ml Q4H PRN PO GASTROINTESTINAL UPSET; Start 12/02/16 at 15:00 Ondansetron HCl (Zofran Inj) 4 mg Q4H PRN IV NAUSEA AND/OR VOMITING; Start at 15:00 Duloxetine HCl (Cymbalta) 20 mg DAILY PO Last administered on 12/05/16 12:33; Admin Dose 20 MG; Start 12/03/16 at 09:00 Acetaminophen/ Hydrocodone Bitart ([place] (10/325)) 1 tab Q4H PRN PO PAIN; Start 12/02/16 at 15:00 Zolpidem Tartrate (Ambien) 5 mg HS PRN PO INSOMNIA; Start 12/02/16 at 17:00 Lorazepam (Ativan) 0.5 mg Q6H PRN IV ANXIETY Last administered on 12/05/16 09: 08; Admin Dose 0.5 MG; Start 12/02/16 at 15:00 Ondansetron HCl (Zofran Tab) 4 mg Q6H PRN PO NAUSEA AND/OR VOMITING; Start at 15:00 Nitroglycerin (Nitroglycerin (Sl Tab) 0.4 Mg) 1 tab Q5M PRN SL CHEST PAIN; Start 12/02/16 at 15:00 Acetaminophen (Tylenol Tab) 650 mg Q6H PRN PO PAIN LEVEL 1-3 OR FEVER Last administered on 12/03/16 12:40; Admin Dose 650 MG; Start 12/02/16 at 15:00 Acetaminophen (Tylenol Supp) 650 mg Q6H PRN IN PAIN LEVEL 1-3 OR FEVER Last administered on 12/05/16 03:52; Admin Dose 650 MG; Start 12/02/16 at 15:00 Docusate Sodium (Colace) 100 mg Q12H PRN PO CONSTIPATION; Start 12/02/16 at 15: 00 Miscellaneous Information 1 ea NOTE XX ; Start 12/02/16 at 18:30 Glucose (Glutose) 15 gm Q15M PRN PO DECREASED GLUCOSE; Start 12/02/16 at 18:30 Glucose (Glutose) 22.5 gm Q15M PRN PO DECREASED GLUCOSE; Start 12/02/16 at 18: 30 Dextrose (D50w Syringe) 25 ml Q15M PRN IV DECREASED GLUCOSE Last administered on 12/04/16 23:54; Admin Dose 25 ML; Start 12/02/16 at 18:30 Dextrose (D50w Syringe) 50 ml Q15M PRN IV DECREASED GLUCOSE; Start 12/02/16 at 18:30 Glucagon (Glucagen) 1 mg Q15M PRN IM DECREASED GLUCOSE; Start 12/02/16 at 18:30 Glucose (Glutose) 15 gm Q15M PRN BUCCAL DECREASED GLUCOSE; Start 12/02/16 at 18 :30 Atorvastatin Calcium (Lipitor) 80 mg HS PO Last administered on 12/05/16 20:59 ; Admin Dose 80 MG; Start 12/02/16 at 21:00 Pregabalin (Lyrica) 75 mg BID PO Last administered on 12/06/16 08:30; Admin Dose 75 MG; Start 12/02/16 at 21:00 Morphine Sulfate 30 mg 30 mg Q8H PO Last administered on 3/23/17at 22:55; Admin Dose 30 MG; Start 12/02/16 at 22:30 Potassium Chloride 40 meq/ Calcium Chloride 1 gm/Dextrose/ Sodium Chloride 1, 000 ml @ 60 mls/hr [id number] IV Last administered on 12/06/16 08:00; Admin Dose 60 MLS/HR; Start 12/04/16 at 21:30 Nitroglycerin/ Dextrose 250 ml @ 1.5 mls/hr TITRATE IV ; Start 12/04/16 at 22: 30 Dopamine HCl/ Dextrose 250 ml @ 7.163 mls/ hr TITRATE IV ; Start 12/04/16 at 22 :30 Pantoprazole (Protonix Iv) 40 mg DAILY@06 IV Last administered on 12/06/16 06: 04; Admin Dose 40 MG; Start 12/05/16 at 06:00 Morphine Sulfate (morphine) 2 mg Q3H PRN IV PAIN Last administered on 07:35; Admin Dose 2 MG; Start 12/05/16 at 11:30 Insulin Detemir (Levemir) 25 unit DAILY@08 SC Last administered on 12/06/16 07 :47; Admin Dose 25 UNIT; Start 12/06/16 at 08:00 Diagnostic Test (Pha) (Accu-Chek) 1 ea 02 XX Last administered on 12/06/16 02: 00; Admin Dose 1 EA; Start 12/06/16 at 02:00 NAUHM BLAIR MD Dec 06, 2016 10:07
[2016-12-06] MEDS: CEFTRIAXONE 1 GM/50 ML (PMX) 50 ML IVPB SCH (10:41)
--- NOTE | 2016-12-06 11:25 | PN ---
DATE: 12/06/2016 SUBJECTIVE: Patient is sitting in a chair. She looks fatigued, in no respiratory distress. Accord ing to the nurse, a few minutes prior, she had been complaining of respiratory distress while lying flat. She was placed in a chair and given Lasix with significant relief. OBJECTIVE: VITAL SIGNS: Temperature 98.2, pulse 83, blood pressure 115/67. CHEST: Chest tubes remain in place and draining serosanguineous fluid. Post-sternotomy. Decreased breath sounds bilaterally. ABDOMEN: Soft. EXTREMITIES: Reveal no edema. Left extremity is wrapped. LABORATORY RESULTS: White count 20.6, hematocrit 27.1, platelet count 240. Sodium 134, BUN 23, cre atinine 0.9. INR 1.1. CURRENT MEDICATIONS: 1. Insulin. 2. Ceftriaxone. 3. Morphine. 4. Protonix. 5. Aspirin. ASSESSMENT: Post-coronary artery bypass graft, postoperative day #2. Moderate respiratory distress , responsive to Lasix; we will continue to dose as needed. CT surgery followup appreciated. Dictated By: TRINA LAGUERRE/[place] Conf#: [id number] DID#: [id number]
--- NOTE | 2016-12-06 11:33 | RADRPT ---
Vent Rate: 83 bpm RR Interval: 0 msec NC Interval: 128 msec QRS Duration: 136 msec QT Interval: 440 msec QTC Interval: 517 msec P-R-T Metaline: 50 - -29 - 47 degrees Sinus rhythm with fusion complexes RBBBwith LAHB block Septal infarct , age undetermined Possible Lateral infarct , age undetermined Abnormal ECG Bifascicular block: RBBB \T\ LAFB [REASON: RBBB w/ left axis deviation] Left ventricular hypertrophy No previous tracing available for comparison Electronically Signed By: Jose Ramon Rubi [id number]
[2016-12-06] MEDS ORDERED: SOD CHLORIDE 0.9% IV SCH (13:00)
[2016-12-06] MEDS ORDERED: DOPAMINE IV SCH (13:00)
[2016-12-06] MEDS: ATORVASTATIN 80 MG TAB PO SCH (20:34)
[2016-12-06] MEDS: INSULIN DETEMIR [LEVEMIR] 3ML CART SC SCH (20:37)
[2016-12-07] VITALS (25 sets, daily range): BP systolic 92–156; BP diastolic 54–134; PULSE 58–176; RESP 18–33
[2016-12-07] MEDS: morphine 2 MG INJ IV PRN ×4 (00:52→20:50)
[2016-12-07] MEDS: ACCU-CHEK XX SCH (02:00)
[2016-12-07 05:17] LABS: ADD SCAN DIFF NO
[2016-12-07 05:27] LABS: BASOPHILS % 0.1 % (0.0-2.0); HEMATOCRIT 27.1 % (37.0-47.0); HEMOGLOBIN 8.9 g/dl (12.0-16.0); LYMPHOCYTES # 2.5 10^3/ul (0.8-2.9); LYMPHOCYTES % 12.3 % (15.0-51.0); MEAN CORPUSCULAR HEMOGLOBIN 29.6 pg (29.0-33.0); MEAN CORPUSCULAR HGB CONC 32.8 g/dl (32.0-37.0); MEAN PLATELET VOLUME 11.3 fl (7.4-10.4); MONOCYTE # 1.2 10^3/ul (0.3-0.9); MONOCYTES % 5.9 % (0.0-11.0); NEUTROPHIL # 16.3 10^3/ul (1.6-7.5); NEUTROPHILS % 80.9 % (39.0-77.0); PLATELET COUNT 249 10^3/UL (140-415); RED BLOOD COUNT 3.01 10^6/ul (4.20-5.40); RED CELL DISTRIBUTION WIDTH 13.8 % (11.5-14.5); WHITE BLOOD COUNT 20.2 10^3/ul (4.8-10.8)
[2016-12-07] MEDS: morphine (ER) 15 MG TAB PO SCH ×2 (05:31→15:47)
[2016-12-07] MEDS: PANTOPRAZOLE 40 MG INJ IV SCH (05:31)
[2016-12-07 05:38] LABS: POTASSIUM 4.3 mmol/L (3.5-5.1)
[2016-12-07 05:41] LABS: CALCIUM 8.5 mg/dl (8.4-10.2); CREATININE 0.7 mg/dl (0.44-1.00)
[2016-12-07 05:42] LABS: MAGNESIUM 2.5 mg/dl (1.7-2.5)
[2016-12-07] MEDS: INSULIN ASPART [NOVOLOG] 3 ML PEN SC SCH ×3 (08:00→21:01)
[2016-12-07] MEDS: DULOXETINE 20 MG CAP DR PO SCH (09:39)
[2016-12-07] MEDS: ASPIRIN 81 MG TAB PO SCH (09:39)
[2016-12-07] MEDS: PREGABALIN 25 MG CAP PO SCH ×2 (09:39→21:10)
[2016-12-07] MEDS: INSULIN DETEMIR [LEVEMIR] 3ML CART SC SCH ×2 (09:40→21:00)
[2016-12-07] MEDS ORDERED: SOD CHLORIDE 0.9% IVPB SCH (10:00)
[2016-12-07] MEDS ORDERED: CEFTRIAXONE IVPB SCH (10:00)
--- NOTE | 2016-12-07 10:28 | PN ---
Date/Time of Note Date/Time of Note DATE: 12/07/16 TIME: 10:26 Assessment/Plan VTE Prophylaxis VTE Prophylaxis Intervention: other Lines/Catheters IV C[facility]ter Type (from [facility] cordis Urinary Cath still in place: Yes Reason Cath still needed: other (indicate) Assessment/Plan Chief Complaint/Hosp Course ASSESSMENT AND PLAN: 1. Non-ST elevation myocardial infarction. The patient is status post left heart catheterization with a finding of multivessel coronary artery disease. Cardiothoracic surgeon consulted Postop day # 3 status post CABG, continue aspirin , Lovenox, statin and monitor blood pressure 2. Obstructive coronary artery disease as above. Cardiothoracic surgeon has been consulted. Status post CABG, continue medical management 3. Essential hypertension, well controlled on medical management. 4. Dyslipidemia. Continue statin. 5. Major depression. Continue Cymbalta. 6. Diabetes mellitus. Continue Levemir, insulin sliding scale, low carb diet. 7. Diabetic neuropathy. Continue Lyrica. 8. For deep venous thrombosis prophylaxis, continue Lovenox 9. For gastrointestinal prophylaxis, on proton pump inhibitor. We will continue to monitor patient closely. Further recommendations, management and treatment as per clinical course. Problems: Subjective 24 Hr Interval Summary Free Text/Dictation Patient continues to complain of having anterior chest discomfort Positive for shortness of breath Minimal p.o. intake, consuming about 25-30% of her meals only Exam/Review of Systems Vital Signs Vitals Vital Signs Date Time Temp Pulse Resp B/P Pulse Ox O2 Delivery O2 Flow Rate FiO2 12/07/16 08:00 93 12/07/16 06:00 23 137/73 12/07/16 04:00 98.9 99 Mask 12/07/16 00:11 13.0 12/06/16 02:22 50 Intake and Output 12/06/16 12/06/16 12/07/16 15:00 23:00 07:00 Intake Total 480 ml 50 ml 350 ml Output Total 975 ml 640 ml 540 ml Balance -495 ml -590 ml -190 ml Exam General: The patient is well-developed, Not in acute distress. HEENT: Atraumatic, normocephalic. The pupils are equal and round . Neck: Supple , IJ line on the right side of the neck Chest: Chest tube in place, surgical site is dry and clean Lungs: Clear to auscultation bilaterally Heart: Normal S1-S2, Regular rhythm and rate. Abdomen: Soft , nontender, nondistended , bowel sounds are present. Extremities: Normal to inspection, no edema no cyanosis Neurologic: Normal mental status,The patient is awake, alert and oriented . Results Result Diagram: 12/07/16 0400 12/07/16 0400 Results 24 hrs Laboratory Tests Test 12/06/16 11:03 12/06/16 12:55 12/06/16 17:11 12/06/16 20:35 Bedside Glucose 357 H 313 H 271 H 275 H Test 12/07/16 04:00 White Blood Count 20.2 H Red Blood Count 3.01 L Hemoglobin 8.9 L Hematocrit 27.1 L Mean Corpuscular Volume 90.0 Mean Corpuscular Hemoglobin 29.6 Mean Corpuscular Hemoglobin Concent 32.8 Red Cell Distribution Width 13.8 Platelet Count 249 Mean Platelet Volume 11.3 H Neutrophils % 80.9 H Lymphocytes % 12.3 L Monocytes % 5.9 Eosinophils % 0.0 Basophils % 0.1 Nucleated Red Blood Cells % 0.0 Neutrophils # 16.3 H Lymphocytes # 2.5 Monocytes # 1.2 H Eosinophils # 0.0 Basophils # 0.0 Nucleated Red Blood Cells # 0.0 Sodium Level 138 Potassium Level 4.3 Chloride Level 101 Carbon Dioxide Level 30 Anion Gap 11 Blood Urea Nitrogen 32 H Creatinine 0.70 Glucose Level 213 # Calcium Level 8.5 Magnesium Level 2.5 Medications Medications Current Medications Aspirin (Aspirin) 81 mg DAILY PO Last administered on 12/07/16 09:39; Admin Dose 81 MG; Start 12/03/16 at 09:00 Al Hydrox/Mg Hydrox/Simethicone (Mag-Al Plus) 30 ml Q4H PRN PO GASTROINTESTINAL UPSET; Start 12/02/16 at 15:00 Ondansetron HCl (Zofran Inj) 4 mg Q4H PRN IV NAUSEA AND/OR VOMITING; Start at 15:00 Duloxetine HCl (Cymbalta) 20 mg DAILY PO Last administered on 12/07/16 09:39; Admin Dose 20 MG; Start 12/03/16 at 09:00 Acetaminophen/ Hydrocodone Bitart ([place] (10/325)) 1 tab Q4H PRN PO PAIN; Start 12/02/16 at 15:00 Zolpidem Tartrate (Ambien) 5 mg HS PRN PO INSOMNIA; Start 12/02/16 at 17:00 Lorazepam (Ativan) 0.5 mg Q6H PRN IV ANXIETY Last administered on 12/05/16 09: 08; Admin Dose 0.5 MG; Start 12/02/16 at 15:00 Ondansetron HCl (Zofran Tab) 4 mg Q6H PRN PO NAUSEA AND/OR VOMITING; Start at 15:00 Nitroglycerin (Nitroglycerin (Sl Tab) 0.4 Mg) 1 tab Q5M PRN SL CHEST PAIN; Start 12/02/16 at 15:00 Acetaminophen (Tylenol Tab) 650 mg Q6H PRN PO PAIN LEVEL 1-3 OR FEVER Last administered on 12/03/16 12:40; Admin Dose 650 MG; Start 12/02/16 at 15:00 Acetaminophen (Tylenol Supp) 650 mg Q6H PRN ME PAIN LEVEL 1-3 OR FEVER Last administered on 12/05/16 03:52; Admin Dose 650 MG; Start 12/02/16 at 15:00 Docusate Sodium (Colace) 100 mg Q12H PRN PO CONSTIPATION; Start 12/02/16 at 15: 00 Miscellaneous Information 1 ea NOTE XX ; Start 12/02/16 at 18:30 Glucose (Glutose) 15 gm Q15M PRN PO DECREASED GLUCOSE; Start 12/02/16 at 18:30 Glucose (Glutose) 22.5 gm Q15M PRN PO DECREASED GLUCOSE; Start 12/02/16 at 18: 30 Dextrose (D50w Syringe) 25 ml Q15M PRN IV DECREASED GLUCOSE Last administered on 12/04/16 23:54; Admin Dose 25 ML; Start 12/02/16 at 18:30 Dextrose (D50w Syringe) 50 ml Q15M PRN IV DECREASED GLUCOSE; Start 12/02/16 at 18:30 Glucagon (Glucagen) 1 mg Q15M PRN IM DECREASED GLUCOSE; Start 12/02/16 at 18:30 Glucose (Glutose) 15 gm Q15M PRN BUCCAL DECREASED GLUCOSE; Start 12/02/16 at 18 :30 Atorvastatin Calcium (Lipitor) 80 mg HS PO Last administered on 12/06/16 20:34 ; Admin Dose 80 MG; Start 12/02/16 at 21:00 Pregabalin (Lyrica) 75 mg BID PO Last administered on 12/07/16 09:39; Admin Dose 75 MG; Start 12/02/16 at 21:00 Morphine Sulfate 30 mg 30 mg Q8H PO Last administered on 12/06/16 23:29; Admin Dose 30 MG; Start 12/02/16 at 22:30 Potassium Chloride 40 meq/ Calcium Chloride 1 gm/Dextrose/ Sodium Chloride 1, 000 ml @ 60 mls/hr [id number] IV Last administered on 12/06/16 08:00; Admin Dose 60 MLS/HR; Start 12/04/16 at 21:30 Nitroglycerin/ Dextrose (Nitroglycerin 50 Mg/D5W (Pmx)) 250 ml @ 1.5 mls/hr TITRATE IV ; Start 12/04/16 at 22:30 Pantoprazole (Protonix Iv) 40 mg DAILY@06 IV Last administered on 12/07/16 05: 31; Admin Dose 40 MG; Start 12/05/16 at 06:00 Morphine Sulfate (morphine) 2 mg Q3H PRN IV PAIN Last administered on 06:03; Admin Dose 2 MG; Start 12/05/16 at 11:30 Insulin Detemir 35 unit 35 unit BID SC Last administered on 12/07/16 09:40; Admin Dose 35 UNIT; Start 12/06/16 at 21:00 Ceftriaxone Sodium (Rocephin) 50 ml @ 100 mls/hr Q24H IVPB Last administered on 12/06/16 10:41; Admin Dose 100 MLS/HR; Start 12/06/16 at 10:30 Miscellaneous Information Pt Diabetic. Pls ... ONCE XX ; Start 12/06/16 at 11:30 Dopamine HCl/ Sodium Chloride (NS) 250 ml @ 7.16 mls/hr TITRATE IV ; Start at 13:00 Diagnostic Test (Pha) (Accu-Chek) 1 ea XX ; Start 12/08/16 at 02:00 NAHUM BLAIR MD Dec 07, 2016 10:27
--- NOTE | 2016-12-07 10:57 | CONS ---
Date/Time of Note Date/Time of Note DATE: 12/07/16 TIME: 10:54 Consult Date/Type/Reason Admit Date/Time Dec 02, 2016 at 17:14 Initial Consult Date 12/05/16 Type of Consultation: Pulmonary/critical care Subjective Patient remains awake alert this morning on Ventimask oxygen Still complaining of central chest discomfort over the sternotomy wound Chest tubes in place with continued drainage Currently hemodynamically stable Objective Vital Signs Date Time Temp Pulse Resp B/P Pulse Ox O2 Delivery O2 Flow Rate FiO2 12/07/16 08:00 93 12/07/16 06:00 23 137/73 12/07/16 04:00 98.9 99 Mask 12/07/16 00:11 13.0 12/06/16 02:22 50 Intake and Output 12/06/16 12/06/16 12/07/16 15:00 23:00 07:00 Intake Total 480 ml 50 ml 350 ml Output Total 975 ml 640 ml 540 ml Balance -495 ml -590 ml -190 ml Exam GENERAL: Elderly-appearing lady comfortable at rest on Ventimask oxygen VITAL SIGNS: per chart NECK: Supple. No JVD or lymphadenopathy. CARDIAC EXAM: S1, S2. No added sounds or murmurs. CHEST: Diminished air entry both lung bases poor air entry, chest tubes in place ABDOMEN: Soft, nontender. No guarding or rebound. EXTREMITIES: No cyanosis, clubbing edema +1 NEUROLOGIC: Generalized weakness. No focal deficits. Results/Medications Result Diagram: 12/07/16 0400 12/07/16 0400 Results 24 hrs Laboratory Tests Test 12/06/16 11:03 12/06/16 12:55 12/06/16 17:11 12/06/16 20:35 Bedside Glucose 357 H 313 H 271 H 275 H Test 12/07/16 04:00 White Blood Count 20.2 H Red Blood Count 3.01 L Hemoglobin 8.9 L Hematocrit 27.1 L Mean Corpuscular Volume 90.0 Mean Corpuscular Hemoglobin 29.6 Mean Corpuscular Hemoglobin Concent 32.8 Red Cell Distribution Width 13.8 Platelet Count 249 Mean Platelet Volume 11.3 H Neutrophils % 80.9 H Lymphocytes % 12.3 L Monocytes % 5.9 Eosinophils % 0.0 Basophils % 0.1 Nucleated Red Blood Cells % 0.0 Neutrophils # 16.3 H Lymphocytes # 2.5 Monocytes # 1.2 H Eosinophils # 0.0 Basophils # 0.0 Nucleated Red Blood Cells # 0.0 Sodium Level 138 Potassium Level 4.3 Chloride Level 101 Carbon Dioxide Level 30 Anion Gap 11 Blood Urea Nitrogen 32 H Creatinine 0.70 Glucose Level 213 # Calcium Level 8.5 Magnesium Level 2.5 Medications Current Medications Aspirin (Aspirin) 81 mg DAILY PO Last administered on 12/07/16 09:39; Admin Dose 81 MG; Start 12/03/16 at 09:00 Al Hydrox/Mg Hydrox/Simethicone (Mag-Al Plus) 30 ml Q4H PRN PO GASTROINTESTINAL UPSET; Start 12/02/16 at 15:00 Ondansetron HCl (Zofran Inj) 4 mg Q4H PRN IV NAUSEA AND/OR VOMITING; Start at 15:00 Duloxetine HCl (Cymbalta) 20 mg DAILY PO Last administered on 12/07/16 09:39; Admin Dose 20 MG; Start 12/03/16 at 09:00 Acetaminophen/ Hydrocodone Bitart ([place] (10/325)) 1 tab Q4H PRN PO PAIN; Start 12/02/16 at 15:00 Zolpidem Tartrate (Ambien) 5 mg HS PRN PO INSOMNIA; Start 12/02/16 at 17:00 Lorazepam (Ativan) 0.5 mg Q6H PRN IV ANXIETY Last administered on 12/05/16 09: 08; Admin Dose 0.5 MG; Start 12/02/16 at 15:00 Ondansetron HCl (Zofran Tab) 4 mg Q6H PRN PO NAUSEA AND/OR VOMITING; Start at 15:00 Nitroglycerin (Nitroglycerin (Sl Tab) 0.4 Mg) 1 tab Q5M PRN SL CHEST PAIN; Start 12/02/16 at 15:00 Acetaminophen (Tylenol Tab) 650 mg Q6H PRN PO PAIN LEVEL 1-3 OR FEVER Last administered on 12/03/16 12:40; Admin Dose 650 MG; Start 12/02/16 at 15:00 Acetaminophen (Tylenol Supp) 650 mg Q6H PRN OR PAIN LEVEL 1-3 OR FEVER Last administered on 12/05/16 03:52; Admin Dose 650 MG; Start 12/02/16 at 15:00 Docusate Sodium (Colace) 100 mg Q12H PRN PO CONSTIPATION; Start 12/02/16 at 15: 00 Miscellaneous Information 1 ea NOTE XX ; Start 12/02/16 at 18:30 Glucose (Glutose) 15 gm Q15M PRN PO DECREASED GLUCOSE; Start 12/02/16 at 18:30 Glucose (Glutose) 22.5 gm Q15M PRN PO DECREASED GLUCOSE; Start 12/02/16 at 18: 30 Dextrose (D50w Syringe) 25 ml Q15M PRN IV DECREASED GLUCOSE Last administered on 12/04/16 23:54; Admin Dose 25 ML; Start 12/02/16 at 18:30 Dextrose (D50w Syringe) 50 ml Q15M PRN IV DECREASED GLUCOSE; Start 12/02/16 at 18:30 Glucagon (Glucagen) 1 mg Q15M PRN IM DECREASED GLUCOSE; Start 12/02/16 at 18:30 Glucose (Glutose) 15 gm Q15M PRN BUCCAL DECREASED GLUCOSE; Start 12/02/16 at 18 :30 Atorvastatin Calcium (Lipitor) 80 mg HS PO Last administered on 12/06/16 20:34 ; Admin Dose 80 MG; Start 12/02/16 at 21:00 Pregabalin (Lyrica) 75 mg BID PO Last administered on 12/07/16 09:39; Admin Dose 75 MG; Start 12/02/16 at 21:00 Morphine Sulfate 30 mg 30 mg Q8H PO Last administered on 12/06/16 23:29; Admin Dose 30 MG; Start 12/02/16 at 22:30 Potassium Chloride 40 meq/ Calcium Chloride 1 gm/Dextrose/ Sodium Chloride 1, 000 ml @ 60 mls/hr [id number] IV Last administered on 12/06/16 08:00; Admin Dose 60 MLS/HR; Start 12/04/16 at 21:30 Nitroglycerin/ Dextrose (Nitroglycerin 50 Mg/D5W (Pmx)) 250 ml @ 1.5 mls/hr TITRATE IV ; Start 12/04/16 at 22:30 Pantoprazole (Protonix Iv) 40 mg DAILY@06 IV Last administered on 12/07/16 05: 31; Admin Dose 40 MG; Start 12/05/16 at 06:00 Morphine Sulfate (morphine) 2 mg Q3H PRN IV PAIN Last administered on 06:03; Admin Dose 2 MG; Start 12/05/16 at 11:30 Insulin Detemir 35 unit 35 unit BID SC Last administered on 12/07/16 09:40; Admin Dose 35 UNIT; Start 12/06/16 at 21:00 Ceftriaxone Sodium (Rocephin) 50 ml @ 100 mls/hr Q24H IVPB Last administered on 12/06/16 10:41; Admin Dose 100 MLS/HR; Start 12/06/16 at 10:30 Miscellaneous Information Pt Diabetic. Pls ... ONCE XX ; Start 12/06/16 at 11:30 Dopamine HCl/ Sodium Chloride (NS) 250 ml @ 7.16 mls/hr TITRATE IV ; Start at 13:00 Diagnostic Test (Pha) (Accu-Chek) 1 ea 02 XX ; Start 12/08/16 at 02:00 Assessment/Plan Chief Complaint/Hosp Course Assessment 1. Non-ST elevation [place] with multivessel coronary artery disease 2. Status post coronary artery bypass graft day 3 3. History of hypertension 4. History of diabetes 5. History of chronic pain on MS Contin 6. Postoperative leukocytosis concerning for underlying infection 7. Postoperative anemia Plan 1. Continue incentive spirometry encourage out of bed 2. Continue chest tube drainage per thoracic surgery 3. Consider panculture broadening antibiotics 4. Pain management consult 5. DVT and GI prophylaxis 6. Continue chest tube drainage until less than 100 mL over 24. Disposition Continue intensive care monitoring Problems: JE[facility] AGEE [facility], [facility] Dec 07, 2016 10:57
[2016-12-07] MEDS ORDERED: AMIODARONE 150MG/D5W BOLUS 100 ML ONE (12:40)
[2016-12-07] MEDS ORDERED: AMIODARONE 150MG/D5W BOLUS 100 ML IV ONE (13:00)
[2016-12-07] MEDS: CEFTRIAXONE 1 GM/50 ML (PMX) 50 ML IVPB SCH (13:16)
--- NOTE | 2016-12-07 13:24 | PN ---
Date/Time of Note Date/Time of Note DATE: 12/07/16 TIME: 13:22 Assessment/Plan VTE Prophylaxis VTE Prophylaxis Intervention: other Lines/Catheters IV C[facility]ter Type (from [facility]): Urinary Cath still in place: No Assessment/Plan Chief Complaint/Hosp Course IMPRESSION: 1. Coronary artery disease. 2. Status post myocardial infarction. 3. Hepatitis C, by report. 4 Hx IVDU SP CABG Hemodynamically stable Extubated DC CT to tele Discussed with the patient. All questions answered. Problems: Subjective 24 Hr Interval Summary Gastrointestinal: no complaints Genitourinary: no complaints Musculoskeletal: no complaints Skin: no complaints Exam/Review of Systems Vital Signs Vitals Vital Signs Date Time Temp Pulse Resp B/P Pulse Ox O2 Delivery O2 Flow Rate FiO2 12/07/16 12:00 94 12/07/16 11:00 21 113/64 95 Venturi Mask 15.0 12/07/16 08:00 99.0 12/06/16 02:22 50 Intake and Output 12/06/16 12/06/16 12/07/16 15:00 23:00 07:00 Intake Total 480 ml 50 ml 350 ml Output Total 975 ml 640 ml 540 ml Balance -495 ml -590 ml -190 ml Exam Neck: non-tender, supple Respiratory: clear to auscultation, normal air movement Cardiovascular: nl pulses, regular rate and rhythm Gastrointestinal: nl liver, spleen, non-tender, soft Results Result Diagram: 12/07/16 0400 12/07/16 0400 Results 24 hrs Laboratory Tests Test 12/06/16 17:11 12/06/16 20:35 12/07/16 04:00 12/07/16 11:42 Bedside Glucose 271 H 275 H 211 White Blood Count 20.2 H Red Blood Count 3.01 L Hemoglobin 8.9 L Hematocrit 27.1 L Mean Corpuscular Volume 90.0 Mean Corpuscular Hemoglobin 29.6 Mean Corpuscular Hemoglobin Concent 32.8 Red Cell Distribution Width 13.8 Platelet Count 249 Mean Platelet Volume 11.3 H Neutrophils % 80.9 H Lymphocytes % 12.3 L Monocytes % 5.9 Eosinophils % 0.0 Basophils % 0.1 Nucleated Red Blood Cells % 0.0 Neutrophils # 16.3 H Lymphocytes # 2.5 Monocytes # 1.2 H Eosinophils # 0.0 Basophils # 0.0 Nucleated Red Blood Cells # 0.0 Sodium Level 138 Potassium Level 4.3 Chloride Level 101 Carbon Dioxide Level 30 Anion Gap 11 Blood Urea Nitrogen 32 H Creatinine 0.70 Glucose Level 213 # Calcium Level 8.5 Magnesium Level 2.5 Medications Medications Current Medications Aspirin (Aspirin) 81 mg DAILY PO Last administered on 12/07/16 09:39; Admin Dose 81 MG; Start 12/03/16 at 09:00 Al Hydrox/Mg Hydrox/Simethicone (Mag-Al Plus) 30 ml Q4H PRN PO GASTROINTESTINAL UPSET; Start 12/02/16 at 15:00 Ondansetron HCl (Zofran Inj) 4 mg Q4H PRN IV NAUSEA AND/OR VOMITING; Start at 15:00 Duloxetine HCl (Cymbalta) 20 mg DAILY PO Last administered on 12/07/16 09:39; Admin Dose 20 MG; Start 12/03/16 at 09:00 Acetaminophen/ Hydrocodone Bitart ([place] (10/325)) 1 tab Q4H PRN PO PAIN; Start 12/02/16 at 15:00 Zolpidem Tartrate (Ambien) 5 mg HS PRN PO INSOMNIA; Start 12/02/16 at 17:00 Lorazepam (Ativan) 0.5 mg Q6H PRN IV ANXIETY Last administered on 12/05/16 09: 08; Admin Dose 0.5 MG; Start 12/02/16 at 15:00 Ondansetron HCl (Zofran Tab) 4 mg Q6H PRN PO NAUSEA AND/OR VOMITING; Start at 15:00 Nitroglycerin (Nitroglycerin (Sl Tab) 0.4 Mg) 1 tab Q5M PRN SL CHEST PAIN; Start 12/02/16 at 15:00 Acetaminophen (Tylenol Tab) 650 mg Q6H PRN PO PAIN LEVEL 1-3 OR FEVER Last administered on 12/03/16 12:40; Admin Dose 650 MG; Start 12/02/16 at 15:00 Acetaminophen (Tylenol Supp) 650 mg Q6H PRN ND PAIN LEVEL 1-3 OR FEVER Last administered on 12/05/16 03:52; Admin Dose 650 MG; Start 12/02/16 at 15:00 Docusate Sodium (Colace) 100 mg Q12H PRN PO CONSTIPATION; Start 12/02/16 at 15: 00 Miscellaneous Information 1 ea NOTE XX ; Start 12/02/16 at 18:30 Glucose (Glutose) 15 gm Q15M PRN PO DECREASED GLUCOSE; Start 12/02/16 at 18:30 Glucose (Glutose) 22.5 gm Q15M PRN PO DECREASED GLUCOSE; Start 12/02/16 at 18: 30 Dextrose (D50w Syringe) 25 ml Q15M PRN IV DECREASED GLUCOSE Last administered on 12/04/16 23:54; Admin Dose 25 ML; Start 12/02/16 at 18:30 Dextrose (D50w Syringe) 50 ml Q15M PRN IV DECREASED GLUCOSE; Start 12/02/16 at 18:30 Glucagon (Glucagen) 1 mg Q15M PRN IM DECREASED GLUCOSE; Start 12/02/16 at 18:30 Glucose (Glutose) 15 gm Q15M PRN BUCCAL DECREASED GLUCOSE; Start 12/02/16 at 18 :30 Atorvastatin Calcium (Lipitor) 80 mg HS PO Last administered on 12/06/16 20:34 ; Admin Dose 80 MG; Start 12/02/16 at 21:00 Pregabalin (Lyrica) 75 mg BID PO Last administered on 12/07/16 09:39; Admin Dose 75 MG; Start 12/02/16 at 21:00 Morphine Sulfate 30 mg 30 mg Q8H PO Last administered on 12/06/16 23:29; Admin Dose 30 MG; Start 12/02/16 at 22:30 Potassium Chloride 40 meq/ Calcium Chloride 1 gm/Dextrose/ Sodium Chloride 1, 000 ml @ 60 mls/hr [id number] IV Last administered on 12/06/16 08:00; Admin Dose 60 MLS/HR; Start 12/04/16 at 21:30 Nitroglycerin/ Dextrose (Nitroglycerin 50 Mg/D5W (Pmx)) 250 ml @ 1.5 mls/hr TITRATE IV ; Start 12/04/16 at 22:30 Pantoprazole (Protonix Iv) 40 mg DAILY@06 IV Last administered on 12/07/16 05: 31; Admin Dose 40 MG; Start 12/05/16 at 06:00 Morphine Sulfate (morphine) 2 mg Q3H PRN IV PAIN Last administered on 06:03; Admin Dose 2 MG; Start 12/05/16 at 11:30 Insulin Detemir 35 unit 35 unit BID SC Last administered on 12/07/16 09:40; Admin Dose 35 UNIT; Start 12/06/16 at 21:00 Ceftriaxone Sodium (Rocephin) 50 ml @ 100 mls/hr Q24H IVPB Last administered on 12/07/16 13:16; Admin Dose 100 MLS/HR; Start 12/06/16 at 10:30 Miscellaneous Information Pt Diabetic. Pls ... ONCE XX ; Start 12/06/16 at 11:30 Dopamine HCl/ Sodium Chloride (NS) 250 ml @ 7.16 mls/hr TITRATE IV ; Start at 13:00 Diagnostic Test (Pha) 1 ea 1 ea 02 XX ; Start 12/08/16 at 02:00 Amiodarone HCl/ Dextrose (Cordarone Iv/ D5W) 500 ml @ 0 mls/hr Q0M IV ; Start at 13:30; Stop 12/08/16 at 13:29 RENETTA WATSON MD Dec 07, 2016 13:24
[2016-12-07] MEDS ORDERED: AMIODARONE 900 MG in DEXTROSE 5% 482 ML IV SCH (13:30)
--- NOTE | 2016-12-07 14:40 | CONS ---
Date/Time of Note Date/Time of Note DATE: 12/07/16 TIME: 14:35 Assessment/Plan Assessment/Plan Additional Assessment/Plan Non-ST elevation [place] Multivessel coronary artery disease status post CABG Cardiomyopathy with ejection fraction 50% New onset atrial fibrillation with rapid ventricular rates Diabetes Hypertension Active tobacco use -Patient with new onset atrial fibrillation with rapid ventricular rates. Start IV amiodarone bolus and drip. Start gentle IV diuretics as blood pressure and renal function permits. Maintain potassium above 4.0 and magnesium above 2.0. Start beta-zacarias as blood pressure permits. Continue aspirin and statin therapy. Consultation Date/Type/Reason Admit Date/Time Dec 02, 2016 at 17:14 Type of Consultation: cv 24 HR Interval Summary Free Text/Dictation Patient with new onset atrial fibrillation with rapid ventricular rates. Complaining of shortness of breath. Denies chest pain Exam/Review of Systems Vital Signs Vitals Vital Signs Date Time Temp Pulse Resp B/P Pulse Ox O2 Delivery O2 Flow Rate FiO2 12/07/16 12:00 94 12/07/16 11:00 21 113/64 95 Venturi Mask 15.0 12/07/16 08:00 99.0 12/06/16 02:22 50 Intake and Output 12/06/16 12/06/16 12/07/16 15:00 23:00 07:00 Intake Total 480 ml 50 ml 350 ml Output Total 975 ml 640 ml 540 ml Balance -495 ml -590 ml -190 ml Exam Dyspneic, on facemask Constitutional: alert, oriented Head: normocephalic Neck: supple Respiratory: other (Coarse breath sounds bilaterally, no wheezing) Cardiovascular: irregular rhythm, other (S1-S2 heard) Gastrointestinal: bowel sounds, non-tender, other (No guarding), soft Extremities: edema, other (No cyanosis) Results Result Diagram: 12/07/16 0400 12/07/16 0400 Results 24 hrs Laboratory Tests Test 12/06/16 17:11 12/06/16 20:35 12/07/16 04:00 12/07/16 11:42 Bedside Glucose 271 H 275 H 211 White Blood Count 20.2 H Red Blood Count 3.01 L Hemoglobin 8.9 L Hematocrit 27.1 L Mean Corpuscular Volume 90.0 Mean Corpuscular Hemoglobin 29.6 Mean Corpuscular Hemoglobin Concent 32.8 Red Cell Distribution Width 13.8 Platelet Count 249 Mean Platelet Volume 11.3 H Neutrophils % 80.9 H Lymphocytes % 12.3 L Monocytes % 5.9 Eosinophils % 0.0 Basophils % 0.1 Nucleated Red Blood Cells % 0.0 Neutrophils # 16.3 H Lymphocytes # 2.5 Monocytes # 1.2 H Eosinophils # 0.0 Basophils # 0.0 Nucleated Red Blood Cells # 0.0 Sodium Level 138 Potassium Level 4.3 Chloride Level 101 Carbon Dioxide Level 30 Anion Gap 11 Blood Urea Nitrogen 32 H Creatinine 0.70 Glucose Level 213 # Calcium Level 8.5 Magnesium Level 2.5 Test 12/07/16 13:12 Bedside Glucose 259 H Medications Medications Current Medications Aspirin (Aspirin) 81 mg DAILY PO Last administered on 12/07/16 09:39; Admin Dose 81 MG; Start 12/03/16 at 09:00 Al Hydrox/Mg Hydrox/Simethicone (Mag-Al Plus) 30 ml Q4H PRN PO GASTROINTESTINAL UPSET; Start 12/02/16 at 15:00 Ondansetron HCl (Zofran Inj) 4 mg Q4H PRN IV NAUSEA AND/OR VOMITING; Start at 15:00 Duloxetine HCl (Cymbalta) 20 mg DAILY PO Last administered on 12/07/16 09:39; Admin Dose 20 MG; Start 12/03/16 at 09:00 Acetaminophen/ Hydrocodone Bitart ([place] (10/325)) 1 tab Q4H PRN PO PAIN; Start 12/02/16 at 15:00 Zolpidem Tartrate (Ambien) 5 mg HS PRN PO INSOMNIA; Start 12/02/16 at 17:00 Lorazepam (Ativan) 0.5 mg Q6H PRN IV ANXIETY Last administered on 12/05/16 09: 08; Admin Dose 0.5 MG; Start 12/02/16 at 15:00 Ondansetron HCl (Zofran Tab) 4 mg Q6H PRN PO NAUSEA AND/OR VOMITING; Start at 15:00 Nitroglycerin (Nitroglycerin (Sl Tab) 0.4 Mg) 1 tab Q5M PRN SL CHEST PAIN; Start 12/02/16 at 15:00 Acetaminophen (Tylenol Tab) 650 mg Q6H PRN PO PAIN LEVEL 1-3 OR FEVER Last administered on 12/03/16 12:40; Admin Dose 650 MG; Start 12/02/16 at 15:00 Acetaminophen (Tylenol Supp) 650 mg Q6H PRN [place] PAIN LEVEL 1-3 OR FEVER Last administered on 12/05/16 03:52; Admin Dose 650 MG; Start 12/02/16 at 15:00 Docusate Sodium (Colace) 100 mg Q12H PRN PO CONSTIPATION; Start 12/02/16 at 15: 00 Miscellaneous Information 1 ea NOTE XX ; Start 12/02/16 at 18:30 Glucose (Glutose) 15 gm Q15M PRN PO DECREASED GLUCOSE; Start 12/02/16 at 18:30 Glucose (Glutose) 22.5 gm Q15M PRN PO DECREASED GLUCOSE; Start 12/02/16 at 18: 30 Dextrose (D50w Syringe) 25 ml Q15M PRN IV DECREASED GLUCOSE Last administered on 12/04/16 23:54; Admin Dose 25 ML; Start 12/02/16 at 18:30 Dextrose (D50w Syringe) 50 ml Q15M PRN IV DECREASED GLUCOSE; Start 12/02/16 at 18:30 Glucagon (Glucagen) 1 mg Q15M PRN IM DECREASED GLUCOSE; Start 12/02/16 at 18:30 Glucose (Glutose) 15 gm Q15M PRN BUCCAL DECREASED GLUCOSE; Start 12/02/16 at 18 :30 Atorvastatin Calcium (Lipitor) 80 mg HS PO Last administered on 12/06/16 20:34 ; Admin Dose 80 MG; Start 12/02/16 at 21:00 Pregabalin (Lyrica) 75 mg BID PO Last administered on 12/07/16 09:39; Admin Dose 75 MG; Start 12/02/16 at 21:00 Morphine Sulfate 30 mg 30 mg Q8H PO Last administered on 12/06/16 23:29; Admin Dose 30 MG; Start 12/02/16 at 22:30 Potassium Chloride 40 meq/ Calcium Chloride 1 gm/Dextrose/ Sodium Chloride 1, 000 ml @ 60 mls/hr [id number] IV Last administered on 12/06/16 08:00; Admin Dose 60 MLS/HR; Start 12/04/16 at 21:30 Nitroglycerin/ Dextrose (Nitroglycerin 50 Mg/D5W (Pmx)) 250 ml @ 1.5 mls/hr TITRATE IV ; Start 12/04/16 at 22:30 Pantoprazole (Protonix Iv) 40 mg DAILY@06 IV Last administered on 12/07/16 05: 31; Admin Dose 40 MG; Start 12/05/16 at 06:00 Morphine Sulfate (morphine) 2 mg Q3H PRN IV PAIN Last administered on 13:38; Admin Dose 2 MG; Start 12/05/16 at 11:30 Insulin Detemir 35 unit 35 unit BID SC Last administered on 12/07/16 09:40; Admin Dose 35 UNIT; Start 12/06/16 at 21:00 Ceftriaxone Sodium (Rocephin) 50 ml @ 100 mls/hr Q24H IVPB Last administered on 12/07/16 13:16; Admin Dose 100 MLS/HR; Start 12/06/16 at 10:30 Miscellaneous Information Pt Diabetic. Pls ... ONCE XX ; Start 12/06/16 at 11:30 Dopamine HCl/ Sodium Chloride (NS) 250 ml @ 7.16 mls/hr TITRATE IV ; Start at 13:00 Diagnostic Test (Pha) 1 ea 1 ea 02 XX ; Start 12/08/16 at 02:00 Amiodarone HCl/ Dextrose (Cordarone Iv/ D5W) 500 ml @ 0 mls/hr Q0M IV Last administered on 12/07/16 13:30; Admin Dose 33.4 MLS/HR; Start 12/07/16 at 13:30 ; Stop 12/08/16 at 13:29 Manuel Escudero DO Dec 07, 2016 14:40
[2016-12-07] MEDS: POTASSIUM CHLORIDE 40 MEQ, CALCIUM CHLORIDE 10% 1 GM in DEXTROSE 5%-0.225% NACL 970 ML IV SCH (16:10)
[2016-12-07] MEDS: FUROSEMIDE 20 MG INJ IV SCH (17:18)
[2016-12-07] MEDS: ATORVASTATIN 80 MG TAB PO SCH (20:57)
[2016-12-07] MEDS: METOPROLOL 25 MG TAB PO SCH (20:57)
[2016-12-07] MEDS: ALBUTEROL/IPRATROPIUM (NEB) 3 ML AMP HHN PRN (21:51)
[2016-12-08] VITALS (24 sets, daily range): BP systolic 111–152; BP diastolic 52–92; PULSE 77–92; RESP 14–29
[2016-12-08] MEDS: morphine (ER) 15 MG TAB PO SCH ×2 (01:01→05:45)
[2016-12-08] MEDS: POTASSIUM CHLORIDE 40 MEQ, CALCIUM CHLORIDE 10% 1 GM in DEXTROSE 5%-0.225% NACL 970 ML IV SCH (01:02)
[2016-12-08] MEDS: ACCU-CHEK XX SCH (01:50)
--- NOTE | 2016-12-08 03:44 | RADRPT ---
PROCEDURE: Chest. CLINICAL INDICATION: Chest pain. TECHNIQUE: Single frontal view of the chest was obtained. COMPARISON: 12/06/2016. FINDINGS: Mediasternotomy wires are present. There is a right-sided Cordis sheath within the upper SVC. The cardiac silhouette is enlarged. The aortic arch is unremarkable. There is pulmonary venous congest ion. There are bilateral small pleural effusions. There is no pneumothorax. IMPRESSION: Moderate cardiomegaly and pulmonary venous congestion, unchanged. Bilateral small pleural effusions, unchanged. .Luke Gibson MD, MD Date Time Electronically viewed and signed by .Luke Gibson MD, MD on 12/08/2016 03:44 .T/
[2016-12-08] MEDS: PANTOPRAZOLE 40 MG INJ IV SCH (05:44)
[2016-12-08] MEDS: FUROSEMIDE 20 MG INJ IV SCH ×2 (05:44→17:14)
[2016-12-08 05:56] LABS: ADD SCAN DIFF NO
[2016-12-08 06:16] LABS: RED BLOOD COUNT 2.94 10^6/ul (4.20-5.40); WHITE BLOOD COUNT 21.4 10^3/ul (4.8-10.8)
[2016-12-08 06:17] LABS: HEMATOCRIT 26.4 % (37.0-47.0); HEMOGLOBIN 8.8 g/dl (12.0-16.0); MEAN CORPUSCULAR HEMOGLOBIN 29.9 pg (29.0-33.0); MEAN CORPUSCULAR HGB CONC 33.3 g/dl (32.0-37.0); MEAN CORPUSCULAR VOLUME 89.8 fl (82.0-101.0); RED CELL DISTRIBUTION WIDTH 13.2 % (11.5-14.5)
[2016-12-08 06:18] LABS: BASOPHILS % 0.2 % (0.0-2.0); EOSINOPHILS % 0.1 % (0.0-7.0); LYMPHOCYTES % 17.5 % (15.0-51.0); MEAN PLATELET VOLUME 11.3 fl (7.4-10.4); MONOCYTES % 7.1 % (0.0-11.0); NEUTROPHILS % 73.8 % (39.0-77.0); PLATELET COUNT 284 10^3/UL (140-415)
[2016-12-08 06:19] LABS: BASOPHIL # 0.1 10^3/ul (0.0-0.1); LYMPHOCYTES # 3.7 10^3/ul (0.8-2.9); MONOCYTE # 1.5 10^3/ul (0.3-0.9); NEUTROPHIL # 15.8 10^3/ul (1.6-7.5); NUCLEATED RED BLOOD CELLS # 0.1 10^3/ul (0.0-0.0); NUCLEATED RED BLOOD CELLS% 0.3 /100WBC (0.0-0.0)
[2016-12-08 07:07] LABS: POTASSIUM 4.5 mmol/L (3.5-5.1)
[2016-12-08 07:10] LABS: CREATININE 0.65 mg/dl (0.44-1.00)
[2016-12-08 07:11] LABS: CALCIUM 8.9 mg/dl (8.4-10.2); MAGNESIUM 2.3 mg/dl (1.7-2.5); PHOSPHORUS 2.1 mg/dl (2.5-4.9)
[2016-12-08] MEDS: INSULIN ASPART [NOVOLOG] 3 ML PEN SC SCH ×4 (07:35→21:00)
[2016-12-08 08:10] LABS: AADO2 Arterial 170.9 mmHg (7.0-24.0); Allen Test ACCEPTAB; Arterial COHb 0.3 % (0.0-3.0); Arterial Fraction of Oxyhgb 89.1 % (93.0-99.0); Arterial HCO3 26.3 mmol/L (22.0-26.0); Arterial MetHb 0.3 % (0.0-1.5); Arterial Total Hemglobin 11.7 g/dl (12.0-18.0); MODE NASAL CANNULA
[2016-12-08] MEDS: PREGABALIN 25 MG CAP PO SCH ×2 (08:54→22:21)
[2016-12-08] MEDS: DULOXETINE 20 MG CAP DR PO SCH (08:54)
[2016-12-08] MEDS: ASPIRIN 81 MG TAB PO SCH (08:55)
[2016-12-08] MEDS: METOPROLOL 25 MG TAB PO SCH ×2 (08:55→22:24)
[2016-12-08] MEDS: INSULIN DETEMIR [LEVEMIR] 3ML CART SC SCH ×2 (08:57→22:35)
[2016-12-08] MEDS: ALBUTEROL/IPRATROPIUM (NEB) 3 ML AMP HHN PRN (09:19)
[2016-12-08] MEDS ORDERED: ALBUTEROL/IPRATROPIUM (NEB) 3 ML AMP HHN PRN (09:30)
--- NOTE | 2016-12-08 10:40 | CONS ---
Date/Time of Note Date/Time of Note DATE: 12/08/16 TIME: 10:39 Consult Date/Type/Reason Admit Date/Time Dec 02, 2016 at 17:14 Initial Consult Date 12/05/16 Type of Consultation: pulmonary/intensive care Subjective Patient has significant shortness of breath overnight with desaturations. Chest tube was removed yesterday This morning breathing remains labored Objective Vital Signs Date Time Temp Pulse Resp B/P Pulse Ox O2 Delivery O2 Flow Rate FiO2 12/08/16 09:24 90 28 96 Nasal Cannula 4.0 12/08/16 08:00 98.8 122/73 12/07/16 23:31 40 Intake and Output 12/07/16 12/07/16 12/08/16 15:00 23:00 07:00 Intake Total 529 ml 585 ml 659 ml Output Total 435 ml 780 ml 210 ml Balance 94 ml -195 ml 449 ml Exam GENERAL: Elderly-appearing lady on nasal cannula oxygen VITAL SIGNS: per chart NECK: Supple. No JVD or lymphadenopathy. CARDIAC EXAM: S1, S2. No added sounds or murmurs. CHEST: Diminished air entry both lung bases poor air entry, ABDOMEN: Soft, nontender. No guarding or rebound. EXTREMITIES: No cyanosis, clubbing edema +1 NEUROLOGIC: Generalized weakness. No focal deficits. Results/Medications Result Diagram: 12/08/16 0500 12/08/16 0500 Results 24 hrs Laboratory Tests Test 12/07/16 11:42 12/07/16 13:12 12/07/16 17:19 12/07/16 20:56 Bedside Glucose 211 259 H 214 155 Test 12/08/16 01:09 12/08/16 05:00 12/08/16 07:00 12/08/16 07:36 Bedside Glucose 279 H 79 White Blood Count 21.4 H Red Blood Count 2.94 L Hemoglobin 8.8 L Hematocrit 26.4 L Mean Corpuscular Volume 89.8 Mean Corpuscular Hemoglobin 29.9 Mean Corpuscular Hemoglobin Concent 33.3 Red Cell Distribution Width 13.2 Platelet Count 284 Mean Platelet Volume 11.3 H Neutrophils % 73.8 Lymphocytes % 17.5 Monocytes % 7.1 Eosinophils % 0.1 Basophils % 0.2 Nucleated Red Blood Cells % 0.3 H Neutrophils # 15.8 H Lymphocytes # 3.7 H Monocytes # 1.5 H Eosinophils # 0.0 Basophils # 0.1 Nucleated Red Blood Cells # 0.1 H Sodium Level 133 L Potassium Level 4.5 Chloride Level 103 Carbon Dioxide Level 27 Anion Gap 8 Blood Urea Nitrogen 34 H Creatinine 0.65 Glucose Level 166 Calcium Level 8.9 Phosphorus Level 2.1 L Magnesium Level 2.3 Blood Gas Specimen Source Blood arterial Arterial Blood Date Drawn 12/08/2016 7:41:30 AM Arterial Blood pH (Temp corrected) 7.435 Arterial Blood pCO2 (Temp correct) 40.1 Arterial Blood pO2 (Temp corrected) 61.0 L Arterial Blood HCO3 26.3 H Arterial Blood Base Excess 2.0 Arterial Blood Oxygen Saturation 89.6 L Amor Test ACCEPTAB Arterial Blood Gas Puncture Site Left Radial Arterial Blood Carboxyhemoglobin 0.3 Arterial Blood Methemoglobin 0.3 Blood Gas A-a O2 Differential 170.9 H Oxyhemoglobin Percent 89.1 L Total Hemoglobin 11.7 L Blood Gas Temperature 37.0 Blood Gas Modality NASAL CANNULA FiO2 39.0 Blood Gas Notified Whom JLD Blood Gas Notified Time 12/08/2016 8:10:05 AM Test 12/08/16 08:29 Bedside Glucose 105 Medications Current Medications Aspirin (Aspirin) 81 mg DAILY PO Last administered on 12/08/16 08:55; Admin Dose 81 MG; Start 12/03/16 at 09:00 Al Hydrox/Mg Hydrox/Simethicone (Mag-Al Plus) 30 ml Q4H PRN PO GASTROINTESTINAL UPSET; Start 12/02/16 at 15:00 Ondansetron HCl (Zofran Inj) 4 mg Q4H PRN IV NAUSEA AND/OR VOMITING; Start at 15:00 Duloxetine HCl (Cymbalta) 20 mg DAILY PO Last administered on 12/08/16 08:54; Admin Dose 20 MG; Start 12/03/16 at 09:00 Acetaminophen/ Hydrocodone Bitart ([place] (10/325)) 1 tab Q4H PRN PO PAIN; Start 12/02/16 at 15:00 Zolpidem Tartrate (Ambien) 5 mg HS PRN PO INSOMNIA Last administered on 21:10; Admin Dose 5 MG; Start 12/02/16 at 17:00 Lorazepam (Ativan) 0.5 mg Q6H PRN IV ANXIETY Last administered on 12/05/16 09: 08; Admin Dose 0.5 MG; Start 12/02/16 at 15:00 Ondansetron HCl (Zofran Tab) 4 mg Q6H PRN PO NAUSEA AND/OR VOMITING; Start at 15:00 Nitroglycerin (Nitroglycerin (Sl Tab) 0.4 Mg) 1 tab Q5M PRN SL CHEST PAIN; Start 12/02/16 at 15:00 Acetaminophen (Tylenol Tab) 650 mg Q6H PRN PO PAIN LEVEL 1-3 OR FEVER Last administered on 12/03/16 12:40; Admin Dose 650 MG; Start 12/02/16 at 15:00 Acetaminophen (Tylenol Supp) 650 mg Q6H PRN ID PAIN LEVEL 1-3 OR FEVER Last administered on 12/05/16 03:52; Admin Dose 650 MG; Start 12/02/16 at 15:00 Docusate Sodium (Colace) 100 mg Q12H PRN PO CONSTIPATION; Start 12/02/16 at 15: 00 Miscellaneous Information 1 ea NOTE XX ; Start 12/02/16 at 18:30 Glucose (Glutose) 15 gm Q15M PRN PO DECREASED GLUCOSE; Start 12/02/16 at 18:30 Glucose (Glutose) 22.5 gm Q15M PRN PO DECREASED GLUCOSE; Start 12/02/16 at 18: 30 Dextrose (D50w Syringe) 25 ml Q15M PRN IV DECREASED GLUCOSE Last administered on 12/04/16 23:54; Admin Dose 25 ML; Start 12/02/16 at 18:30 Dextrose (D50w Syringe) 50 ml Q15M PRN IV DECREASED GLUCOSE; Start 12/02/16 at 18:30 Glucagon (Glucagen) 1 mg Q15M PRN IM DECREASED GLUCOSE; Start 12/02/16 at 18:30 Glucose (Glutose) 15 gm Q15M PRN BUCCAL DECREASED GLUCOSE; Start 12/02/16 at 18 :30 Atorvastatin Calcium (Lipitor) 80 mg HS PO Last administered on 12/07/16 20:57 ; Admin Dose 80 MG; Start 12/02/16 at 21:00 Pregabalin (Lyrica) 75 mg BID PO Last administered on 12/08/16 08:54; Admin Dose 75 MG; Start 12/02/16 at 21:00 Morphine Sulfate 30 mg 30 mg Q8H PO Last administered on 12/08/16 05:45; Admin Dose 30 MG; Start 12/02/16 at 22:30 Potassium Chloride 40 meq/ Calcium Chloride 1 gm/Dextrose/ Sodium Chloride 1, 000 ml @ 0 mls/hr [id number] IV Last administered on 12/08/16 01:02; Admin Dose 20 MLS/HR; Start 12/04/16 at 21:30 Nitroglycerin/ Dextrose (Nitroglycerin 50 Mg/D5W (Pmx)) 250 ml @ 1.5 mls/hr TITRATE IV ; Start 12/04/16 at 22:30 Pantoprazole (Protonix Iv) 40 mg DAILY@06 IV Last administered on 12/08/16 05: 44; Admin Dose 40 MG; Start 12/05/16 at 06:00 Morphine Sulfate (morphine) 2 mg Q3H PRN IV PAIN Last administered on 20:50; Admin Dose 2 MG; Start 12/05/16 at 11:30 Insulin Detemir 35 unit 35 unit BID SC Last administered on 12/08/16 08:57; Admin Dose 35 UNIT; Start 12/06/16 at 21:00 Ceftriaxone Sodium (Rocephin) 50 ml @ 100 mls/hr Q24H IVPB Last administered on 12/07/16 13:16; Admin Dose 100 MLS/HR; Start 12/06/16 at 10:30 Miscellaneous Information Pt Diabetic. Pls ... ONCE XX ; Start 12/06/16 at 11:30 Dopamine HCl/ Sodium Chloride (NS) 250 ml @ 7.16 mls/hr TITRATE IV ; Start at 13:00 Diagnostic Test (Pha) 1 ea 1 ea 02 XX ; Start 12/08/16 at 02:00 Amiodarone HCl/ Dextrose (Cordarone Iv/ D5W) 500 ml @ 0 mls/hr Q0M IV Last administered on 12/07/16 13:30; Admin Dose 33.4 MLS/HR; Start 12/07/16 at 13:30 ; Stop 12/08/16 at 13:29 Metoprolol Tartrate 25 mg 25 mg BID PO Last administered on 12/08/16 08:55; Admin Dose 25 MG; Start 12/07/16 at 21:00 Potassium Chloride/Calcium Chloride/Dextrose/ Sodium Chloride (KCl/Ca Chloride/ D5-1/4ns) 1,000 ml @ 0 mls/hr Q0M IV ; Start 12/09/16 at 18:59; Stop 12/11/16 at 18:58 Amiodarone HCl (Cordarone) 200 mg BID PO ; Start 12/08/16 at 09:30 Assessment/Plan Chief Complaint/Hosp Course Assessment 1. Non-ST elevation IA with multivessel coronary artery disease 2. Status post coronary artery bypass graft day 4 3. History of hypertension 4. History of diabetes 5. History of chronic pain on MS Contin 6. Postoperative leukocytosis concerning for underlying infection 7. Postoperative anemia Plan 1. Continue incentive spirometry encourage out of bed 2. Thoracic surgery recommendations 3. Broad-spectrum antibiotics 4. Pain management consult 5. DVT and GI prophylaxis 6. Additional diuretics for ongoing CHF 6. Empiric steroids for likely some component of COPD exacerbation Disposition Continue intensive care monitoring Problems: JEFE AGEE MD, [facility] Dec 08, 2016 10:40
[2016-12-08] MEDS: AMIODARONE 200 MG TAB PO SCH ×2 (10:55→22:27)
[2016-12-08] MEDS ORDERED: METHYLPREDNISOLONE 40 MG INJ IV SCH (12:00)
--- NOTE | 2016-12-08 12:27 | PN ---
Date/Time of Note Date/Time of Note DATE: 12/08/16 TIME: 12:24 Assessment/Plan VTE Prophylaxis VTE Prophylaxis Intervention: other Lines/Catheters [facility] Cord[facility] Urinary Cath still in place: Yes Reason Cath still needed: other (indicate) Assessment/Plan Chief Complaint/Hosp Course ASSESSMENT AND PLAN: 1. Non-ST elevation myocardial infarction. The patient is status post left heart catheterization with a finding of multivessel coronary artery disease. Cardiothoracic surgeon consulted Postop day # 4 status post CABG, continue aspirin , Lovenox, statin and monitor blood pressure 2. Obstructive coronary artery disease as above. Cardiothoracic surgeon has been consulted. Status post CABG, continue medical management 3. Essential hypertension, well controlled on medical management. 4. Dyslipidemia. Continue statin. 5. Major depression. Continue Cymbalta. 6. Diabetes mellitus. Continue Levemir, insulin sliding scale, low carb diet. 7. Diabetic neuropathy. Continue Lyrica. 8. For deep venous thrombosis prophylaxis, continue Lovenox 9. For gastrointestinal prophylaxis, on proton pump inhibitor. We will continue to monitor patient closely. Further recommendations, management and treatment as per clinical course. Continue to monitor in ICU secondary to shortness of breath Problems: Subjective 24 Hr Interval Summary Free Text/Dictation Patient had a rough evening secondary to having episodes of shortness of breath Chest tube was discontinued Patient continues to complain of having moderate shortness of breath No nausea vomiting diarrhea Minimal p.o. intake Exam/Review of Systems Vital Signs Vitals Vital Signs Date Time Temp Pulse Resp B/P Pulse Ox O2 Delivery O2 Flow Rate FiO2 12/08/16 11:00 80 27 132/66 92 Nasal Cannula 4.0 12/08/16 08:00 98.8 12/07/16 23:31 40 Intake and Output 12/07/16 12/07/16 12/08/16 15:00 23:00 07:00 Intake Total 529 ml 585 ml 659 ml Output Total 435 ml 780 ml 410 ml Balance 94 ml -195 ml 249 ml Exam General: The patient is in moderate distress secondary to shortness of breath. HEENT: Atraumatic, normocephalic. The pupils are equal and round . Neck: Supple with full range of motion. Chest: Normal expansion of the thorax during inspiration, surgical site is dry and clean Lungs: Increased breath sounds bilateral lower lung field, positive wheezing bilateral upper lung field Heart: Normal S1-S2, Regular rhythm and rate. Abdomen: Soft , nontender, nondistended , bowel sounds are present. Extremities: Normal to inspection, no edema no cyanosis Neurologic: Normal mental status,The patient is awake, alert and oriented . Results Result Diagram: 12/08/16 0500 12/08/16 0500 Results 24 hrs Laboratory Tests Test 12/07/16 13:12 12/07/16 17:19 12/07/16 20:56 12/08/16 01:09 Bedside Glucose 259 H 214 155 279 H Test 12/08/16 05:00 12/08/16 07:00 12/08/16 07:36 12/08/16 08:29 White Blood Count 21.4 H Red Blood Count 2.94 L Hemoglobin 8.8 L Hematocrit 26.4 L Mean Corpuscular Volume 89.8 Mean Corpuscular Hemoglobin 29.9 Mean Corpuscular Hemoglobin Concent 33.3 Red Cell Distribution Width 13.2 Platelet Count 284 Mean Platelet Volume 11.3 H Neutrophils % 73.8 Lymphocytes % 17.5 Monocytes % 7.1 Eosinophils % 0.1 Basophils % 0.2 Nucleated Red Blood Cells % 0.3 H Neutrophils # 15.8 H Lymphocytes # 3.7 H Monocytes # 1.5 H Eosinophils # 0.0 Basophils # 0.1 Nucleated Red Blood Cells # 0.1 H Sodium Level 133 L Potassium Level 4.5 Chloride Level 103 Carbon Dioxide Level 27 Anion Gap 8 Blood Urea Nitrogen 34 H Creatinine 0.65 Glucose Level 166 Calcium Level 8.9 Phosphorus Level 2.1 L Magnesium Level 2.3 Blood Gas Specimen Source Blood arterial Arterial Blood Date Drawn 12/08/2016 7:41:30 AM Arterial Blood pH (Temp corrected) 7.435 Arterial Blood pCO2 (Temp correct) 40.1 Arterial Blood pO2 (Temp corrected) 61.0 L Arterial Blood HCO3 26.3 H Arterial Blood Base Excess 2.0 Arterial Blood Oxygen Saturation 89.6 L Amor Test ACCEPTAB Arterial Blood Gas Puncture Site Left Radial Arterial Blood Carboxyhemoglobin 0.3 Arterial Blood Methemoglobin 0.3 Blood Gas A-a O2 Differential 170.9 H Oxyhemoglobin Percent 89.1 L Total Hemoglobin 11.7 L Blood Gas Temperature 37.0 Blood Gas Modality NASAL CANNULA FiO2 39.0 Blood Gas Notified Whom JLD Blood Gas Notified Time 12/08/2016 8:10:05 AM Bedside Glucose 79 105 Test 12/08/16 11:05 Bedside Glucose 124 Medications Medications Current Medications Aspirin (Aspirin) 81 mg DAILY PO Last administered on 12/08/16 08:55; Admin Dose 81 MG; Start 12/03/16 at 09:00 Al Hydrox/Mg Hydrox/Simethicone (Mag-Al Plus) 30 ml Q4H PRN PO GASTROINTESTINAL UPSET; Start 12/02/16 at 15:00 Ondansetron HCl (Zofran Inj) 4 mg Q4H PRN IV NAUSEA AND/OR VOMITING; Start at 15:00 Duloxetine HCl (Cymbalta) 20 mg DAILY PO Last administered on 12/08/16 08:54; Admin Dose 20 MG; Start 12/03/16 at 09:00 Ondansetron HCl (Zofran Tab) 4 mg Q6H PRN PO NAUSEA AND/OR VOMITING; Start at 15:00 Nitroglycerin (Nitroglycerin (Sl Tab) 0.4 Mg) 1 tab Q5M PRN SL CHEST PAIN; Start 12/02/16 at 15:00 Acetaminophen (Tylenol Tab) 650 mg Q6H PRN PO PAIN LEVEL 1-3 OR FEVER Last administered on 12/03/16 12:40; Admin Dose 650 MG; Start 12/02/16 at 15:00 Acetaminophen (Tylenol Supp) 650 mg Q6H PRN [place] PAIN LEVEL 1-3 OR FEVER Last administered on 12/05/16 03:52; Admin Dose 650 MG; Start 12/02/16 at 15:00 Docusate Sodium (Colace) 100 mg Q12H PRN PO CONSTIPATION; Start 12/02/16 at 15: 00 Miscellaneous Information 1 ea NOTE XX ; Start 12/02/16 at 18:30 Glucose (Glutose) 15 gm Q15M PRN PO DECREASED GLUCOSE; Start 12/02/16 at 18:30 Glucose (Glutose) 22.5 gm Q15M PRN PO DECREASED GLUCOSE; Start 12/02/16 at 18: 30 Dextrose (D50w Syringe) 25 ml Q15M PRN IV DECREASED GLUCOSE Last administered on 12/04/16 23:54; Admin Dose 25 ML; Start 12/02/16 at 18:30 Dextrose (D50w Syringe) 50 ml Q15M PRN IV DECREASED GLUCOSE; Start 12/02/16 at 18:30 Glucagon (Glucagen) 1 mg Q15M PRN IM DECREASED GLUCOSE; Start 12/02/16 at 18:30 Glucose (Glutose) 15 gm Q15M PRN BUCCAL DECREASED GLUCOSE; Start 12/02/16 at 18 :30 Atorvastatin Calcium 80 mg 80 mg HS PO Last administered on 12/07/16 20:57; Admin Dose 80 MG; Start 12/02/16 at 21:00 Potassium Chloride 40 meq/ Calcium Chloride 1 gm/Dextrose/ Sodium Chloride 1, 000 ml @ 0 mls/hr [id number] IV Last administered on 12/08/16 01:02; Admin Dose 20 MLS/HR; Start 12/04/16 at 21:30 Nitroglycerin/ Dextrose (Nitroglycerin 50 Mg/D5W (Pmx)) 250 ml @ 1.5 mls/hr TITRATE IV ; Start 12/04/16 at 22:30 Pantoprazole (Protonix Iv) 40 mg DAILY@06 IV Last administered on 12/08/16 05: 44; Admin Dose 40 MG; Start 12/05/16 at 06:00 Insulin Detemir (Levemir) 35 unit BID SC Last administered on 12/08/16 08:57; Admin Dose 35 UNIT; Start 12/06/16 at 21:00 Miscellaneous Information Pt Diabetic. Pls ... ONCE XX ; Start 12/06/16 at 11:30 Dopamine HCl/ Sodium Chloride (NS) 250 ml @ 7.16 mls/hr TITRATE IV ; Start at 13:00 Diagnostic Test (Pha) 1 ea 1 ea 02 XX ; Start 12/08/16 at 02:00 Amiodarone HCl/ Dextrose (Cordarone Iv/ D5W) 500 ml @ 0 mls/hr Q0M IV Last administered on 12/07/16 13:30; Admin Dose 33.4 MLS/HR; Start 12/07/16 at 13:30 ; Stop 12/08/16 at 13:29 Metoprolol Tartrate 25 mg 25 mg BID PO Last administered on 12/08/16 08:55; Admin Dose 25 MG; Start 12/07/16 at 21:00 Potassium Chloride/Calcium Chloride/Dextrose/ Sodium Chloride (KCl/Ca Chloride/ D5-1/4ns) 1,000 ml @ 0 mls/hr Q0M IV ; Start 12/09/16 at 18:59; Stop 12/11/16 at 18:58 Amiodarone HCl (Cordarone) 200 mg BID PO Last administered on 12/08/16t 10:55; Admin Dose 200 MG; Start 12/08/16 at 09:30 Fentanyl (Sublimaze) 25 mcg Q4 PRN IV PAIN; Start 12/08/16 at 11:00 Methylprednisolone Sodium Succinate 40 mg 40 mg Q6 IV ; Start 12/08/16 at 12:00 Piperacillin Sod/ Tazobactam Sod (Zosyn 3.375gm/ 100 ml (Pmx)) 100 ml @ 200 mls /hr Q8 IVPB ; Start 12/08/16 at 14:00 Pregabalin (Lyrica) 75 mg BID PO ; Start 12/08/16 at 21:00 NAHUM BLAIR MD Dec 08, 2016 12:27
--- NOTE | 2016-12-08 12:33 | CONS ---
DATE OF ADMISSION: 12/02/2016 DATE OF CONSULTATION: 12/08/2016 PRELIMINARY PAIN MANAGEMENT NOTE I went to examine the patient and do my pain management consultation. I have some information from nursing; however, when I went in to examine the patient, I found her to be somnolent. She apparentl y had a bout of atrial fibrillation. She was treated at that time and has been somewhat somnolent s olive then without sedation. I will not wake her, but will return to examine her. My understanding is that she was taking opioids as an outpatient. Dictated By: JUAN ROACH MD LP/NTS Conf#: [id number] DID#: [id number]
--- NOTE | 2016-12-08 13:27 | PN ---
DATE: 12/08/2016 PAIN MANAGEMENT CONSULTATION Information is primarily taken from medical chart. The patient is somnolent and a very poor histori an. She is a 66-year-old female with a history of coronary heart disease, hypertension, actively sm okes, diabetes, obesity and a chronic pain syndrome who presented to [facility] wi th non-ST myocardial infarction status post left heart catheterization. The patient was seen by Dr. Larose, had coronary artery bypass graft. Please refer to his extensive dictation on 12/04/2016 . Transferred to the intensive care unit where she remains at this time. From what I could obtain from the patient, she has a history of osteoarthritis of her lumbosacral spine pain, and she tells m e she takes OxyContin, but she does not recall any other pain control medications that she takes. S he is somewhat somnolent at this time and it is hard to get a clear history; therefore, I do not kno w how long she has taken it, whether or not she has had a significant improvement in the pain since taking it, the location, or character of the pain. Yesterday when I saw her she was very somnolent, and I elected not to treat with anything, not wake her up since she had run of atrial fibrillation and remained very weak after that. MEDICATIONS: Please refer to reconciliation sheets. ALLERGIES: NO KNOWN DRUG ALLERGIES. MAJOR MEDICAL PROBLEMS IN THE PAST: As per history of present illness. SOCIAL HISTORY: Actively smokes, nondrinker. FAMILY HISTORY: Noncontributory. REVIEW OF SYSTEMS: Cannot be obtained. The patient is somnolent and a poor historian when aroused. PHYSICAL EXAMINATION: GENERAL: Shows a pleasant obese female who is in no major acute distress at this time, somewhat dys pneic on examination. HEENT: She is normocephalic, atraumatic, anicteric, acyanotic. CHEST: Bilateral chest findings distant throughout both lung allan. CORONARY: S1, S2, without S3, S4, murmur, gallop, rub. Normal rate, normal rhythm on examination. NEUROLOGICAL: She is somnolent, slow to answer questions, oriented x2, place, person. Moving all e xtremities. Upper and lower extremities within normal limits. LABORATORY DATA: Significant for pain management. White blood cell count of 21.4, hemoglobin 8.8, hematocrit of 26.4, platelet count of 284,000. Chemistries: Serum sodium 133, potassium 4.5, chlor miracle 103, bicarbonate 27, BUN of 34, creatinine 0.65. Blood sugar 166. ASSESSMENT AND PLAN: This is a 66-year-old female status post coronary artery bypass graft, multipl e comorbid medical problems precipitating admission with non-ST myocardial infarction. She has a pa in management syndrome, but she is unclear as to what she takes, how long she has been taking those medications, and currently has been placed on a combination of IV morphine and morphine extended rel ease. Since she is somnolent at this time, high risk of aspiration, I will stop the morphine and MS Contin, but continue with just the p.r.n. doses IV conservatively and will follow her clinical cour se very closely. I do not anticipate this lady will have any withdrawal symptoms with the p.r.n. do sing. If she does, then I will start her back on an opioid long-acting, but only if she has some ph ysical findings or neurological findings associated with withdrawal. Dictated By: JUAN ROACH MD, LP/[place] Conf#: [id number] DID#: [id number]
[2016-12-08] MEDS: FENTAnyl 50 MCG/ML VIAL IV PRN (13:55)
[2016-12-08] MEDS: PIPER-TAZO 3.375 GM IV (PMX) 100 ML IVPB SCH ×2 (14:02→22:23)
[2016-12-08] MEDS: METHYLPREDNISOLONE 40 MG INJ IV SCH ×2 (14:02→22:23)
[2016-12-08] MEDS: ALBUTEROL/IPRATROPIUM (NEB) 3 ML AMP HHN SCH ×3 (14:12→20:32)
[2016-12-08] MEDS ORDERED: FUROSEMIDE 40 MG INJ ONE (16:57)
--- NOTE | 2016-12-08 17:10 | CONS ---
Date/Time of Note Date/Time of Note DATE: 12/08/16 TIME: 17:07 Assessment/Plan Assessment/Plan Additional Assessment/Plan Non-ST elevation [place] Multivessel coronary artery disease status post CABG Cardiomyopathy with ejection fraction 50% Acute decompensated systolic and diastolic congestive heart failure Paroxysmal atrial fibrillation, currently sinus Diabetes Hypertension Active tobacco use -Agree with increase diuretic regimen, currently patient in sinus rhythm, switch to p.o. amiodarone. Maintain potassium above 4.0 and magnesium above 2.0. Would increase dose of beta-zacarias as blood pressure permits, continue aspirin and statin therapy Consultation Date/Type/Reason Admit Date/Time Dec 02, 2016 at 17:14 Type of Consultation: cv 24 HR Interval Summary Free Text/Dictation Feeling better today. Less shortness of breath, denies palpitations or chest pain Exam/Review of Systems Vital Signs Vitals Vital Signs Date Time Temp Pulse Resp B/P Pulse Ox O2 Delivery O2 Flow Rate FiO2 12/08/16 16:00 86 25 152/80 90 Nasal Cannula 4.0 12/08/16 12:00 99.0 12/07/16 23:31 40 Intake and Output 12/07/16 12/07/16 12/08/16 15:00 23:00 07:00 Intake Total 529 ml 585 ml 659 ml Output Total 435 ml 780 ml 410 ml Balance 94 ml -195 ml 249 ml Exam No apparent distress Constitutional: alert, obese, oriented Head: normocephalic Neck: supple Respiratory: other (Coarse breath sounds bilaterally, no wheezing) Cardiovascular: other (S1-S2 heard), regular rate and rhythm Gastrointestinal: bowel sounds, non-tender, other (No guarding), soft Extremities: edema (Trace), other (No cyanosis) Results Result Diagram: 12/08/16 0500 12/08/16 0500 Results 24 hrs Laboratory Tests Test 12/07/16 17:19 12/07/16 20:56 12/08/16 01:09 12/08/16 05:00 Bedside Glucose 214 155 279 H White Blood Count 21.4 H Red Blood Count 2.94 L Hemoglobin 8.8 L Hematocrit 26.4 L Mean Corpuscular Volume 89.8 Mean Corpuscular Hemoglobin 29.9 Mean Corpuscular Hemoglobin Concent 33.3 Red Cell Distribution Width 13.2 Platelet Count 284 Mean Platelet Volume 11.3 H Neutrophils % 73.8 Lymphocytes % 17.5 Monocytes % 7.1 Eosinophils % 0.1 Basophils % 0.2 Nucleated Red Blood Cells % 0.3 H Neutrophils # 15.8 H Lymphocytes # 3.7 H Monocytes # 1.5 H Eosinophils # 0.0 Basophils # 0.1 Nucleated Red Blood Cells # 0.1 H Sodium Level 133 L Potassium Level 4.5 Chloride Level 103 Carbon Dioxide Level 27 Anion Gap 8 Blood Urea Nitrogen 34 H Creatinine 0.65 Glucose Level 166 Calcium Level 8.9 Phosphorus Level 2.1 L Magnesium Level 2.3 Test 12/08/16 07:00 12/08/16 07:36 12/08/16 08:29 12/08/16 11:05 Blood Gas Specimen Source Blood arterial Arterial Blood Date Drawn 12/08/2016 7:41:30 AM Arterial Blood pH (Temp corrected) 7.435 Arterial Blood pCO2 (Temp correct) 40.1 Arterial Blood pO2 (Temp corrected) 61.0 L Arterial Blood HCO3 26.3 H Arterial Blood Base Excess 2.0 Arterial Blood Oxygen Saturation 89.6 L Amor Test ACCEPTAB Arterial Blood Gas Puncture Site Left Radial Arterial Blood Carboxyhemoglobin 0.3 Arterial Blood Methemoglobin 0.3 Blood Gas A-a O2 Differential 170.9 H Oxyhemoglobin Percent 89.1 L Total Hemoglobin 11.7 L Blood Gas Temperature 37.0 Blood Gas Modality NASAL CANNULA FiO2 39.0 Blood Gas Notified Whom JLD Blood Gas Notified Time 12/08/2016 8:10:05 AM Bedside Glucose 79 105 124 Test 12/08/16 15:28 Bedside Glucose 83 Medications Medications Current Medications Aspirin (Aspirin) 81 mg DAILY PO Last administered on 12/08/16 08:55; Admin Dose 81 MG; Start 12/03/16 at 09:00 Al Hydrox/Mg Hydrox/Simethicone (Mag-Al Plus) 30 ml Q4H PRN PO GASTROINTESTINAL UPSET; Start 12/02/16 at 15:00 Ondansetron HCl (Zofran Inj) 4 mg Q4H PRN IV NAUSEA AND/OR VOMITING; Start at 15:00 Duloxetine HCl (Cymbalta) 20 mg DAILY PO Last administered on 12/08/16 08:54; Admin Dose 20 MG; Start 12/03/16 at 09:00 Ondansetron HCl (Zofran Tab) 4 mg Q6H PRN PO NAUSEA AND/OR VOMITING; Start at 15:00 Nitroglycerin (Nitroglycerin (Sl Tab) 0.4 Mg) 1 tab Q5M PRN SL CHEST PAIN; Start 12/02/16 at 15:00 Acetaminophen (Tylenol Tab) 650 mg Q6H PRN PO PAIN LEVEL 1-3 OR FEVER Last administered on 12/03/16 12:40; Admin Dose 650 MG; Start 12/02/16 at 15:00 Acetaminophen (Tylenol Supp) 650 mg Q6H PRN [place] PAIN LEVEL 1-3 OR FEVER Last administered on 12/05/16 03:52; Admin Dose 650 MG; Start 12/02/16 at 15:00 Docusate Sodium (Colace) 100 mg Q12H PRN PO CONSTIPATION; Start 12/02/16 at 15: 00 Miscellaneous Information 1 ea NOTE XX ; Start 12/02/16 at 18:30 Glucose (Glutose) 15 gm Q15M PRN PO DECREASED GLUCOSE; Start 12/02/16 at 18:30 Glucose (Glutose) 22.5 gm Q15M PRN PO DECREASED GLUCOSE; Start 12/02/16 at 18: 30 Dextrose (D50w Syringe) 25 ml Q15M PRN IV DECREASED GLUCOSE Last administered on 12/04/16 23:54; Admin Dose 25 ML; Start 12/02/16 at 18:30 Dextrose (D50w Syringe) 50 ml Q15M PRN IV DECREASED GLUCOSE; Start 12/02/16 at 18:30 Glucagon (Glucagen) 1 mg Q15M PRN IM DECREASED GLUCOSE; Start 12/02/16 at 18:30 Glucose (Glutose) 15 gm Q15M PRN BUCCAL DECREASED GLUCOSE; Start 12/02/16 at 18 :30 Atorvastatin Calcium 80 mg 80 mg HS PO Last administered on 12/07/16 20:57; Admin Dose 80 MG; Start 12/02/16 at 21:00 Potassium Chloride 40 meq/ Calcium Chloride 1 gm/Dextrose/ Sodium Chloride 1, 000 ml @ 0 mls/hr [id number] IV Last administered on 12/08/16 01:02; Admin Dose 20 MLS/HR; Start 12/04/16 at 21:30 Nitroglycerin/ Dextrose (Nitroglycerin 50 Mg/D5W (Pmx)) 250 ml @ 1.5 mls/hr TITRATE IV ; Start 12/04/16 at 22:30 Pantoprazole (Protonix Iv) 40 mg DAILY@06 IV Last administered on 12/08/16 05: 44; Admin Dose 40 MG; Start 12/05/16 at 06:00 Insulin Detemir (Levemir) 35 unit BID SC Last administered on 12/08/16 08:57; Admin Dose 35 UNIT; Start 12/06/16 at 21:00 Miscellaneous Information Pt Diabetic. Pls ... ONCE XX ; Start 12/06/16 at 11:30 Dopamine HCl/ Sodium Chloride (NS) 250 ml @ 7.16 mls/hr TITRATE IV ; Start at 13:00 Diagnostic Test (Pha) (Accu-Chek) 1 ea 02 XX ; Start 12/08/16 at 02:00 Metoprolol Tartrate 25 mg 25 mg BID PO Last administered on 12/08/16 08:55; Admin Dose 25 MG; Start 12/07/16 at 21:00 Potassium Chloride/Calcium Chloride/Dextrose/ Sodium Chloride (KCl/Ca Chloride/ D5-1/4ns) 1,000 ml @ 0 mls/hr Q0M IV ; Start 12/09/16 at 18:59; Stop 12/11/16 at 18:58 Amiodarone HCl (Cordarone) 200 mg BID PO Last administered on 12/08/16 10:55; Admin Dose 200 MG; Start 12/08/16 at 09:30 Fentanyl 25 mcg 25 mcg Q4 PRN IV PAIN Last administered on 12/08/16 13:55; Admin Dose 25 MCG; Start 12/08/16 at 11:00 Piperacillin Sod/ Tazobactam Sod (Zosyn 3.375gm/ 100 ml (Pmx)) 100 ml @ 200 mls /hr Q8 IVPB Last administered on 12/08/16 14:02; Admin Dose 200 MLS/HR; Start 12/08/16 at 14:00 Pregabalin (Lyrica) 75 mg BID PO ; Start 12/08/16 at 21:00 Methylprednisolone Sodium Succinate (Solu-Medrol) 40 mg Q8 IV Last administered on 12/08/16 14:02; Admin Dose 40 MG; Start 12/08/16 at 14:00 Manuel Escudero DO Dec 08, 2016 17:10
--- NOTE | 2016-12-08 17:58 | PN ---
Date/Time of Note Date/Time of Note DATE: 12/08/16 TIME: 17:58 Assessment/Plan Lines/Catheters IV Catheter Type (from Nrs): Cordis Stearns in Place (from Nrs): Yes Assessment/Plan Chief Complaint/Hosp Course IMPRESSION: 1. Coronary artery disease. 2. Status post myocardial infarction. 3. Hepatitis C, by report. 4 Hx IVDU SP CABG Hemodynamically stable Extubated to tele Discussed with the patient. All questions answered. Problems: Subjective 24 Hr Interval Summary Constitutional: improved Pain Control: mild Exam/Review of Systems Vital Signs Vitals Vital Signs Date Time Temp Pulse Resp B/P Pulse Ox O2 Delivery O2 Flow Rate FiO2 12/08/16 16:00 86 25 152/80 90 Nasal Cannula 4.0 12/08/16 12:00 99.0 12/07/16 23:31 40 Intake and Output 12/07/16 12/07/16 12/08/16 15:00 23:00 07:00 Intake Total 529 ml 585 ml 659 ml Output Total 435 ml 780 ml 410 ml Balance 94 ml -195 ml 249 ml Exam Neck: non-tender, supple Respiratory: clear to auscultation, normal air movement Cardiovascular: nl pulses, regular rate and rhythm Gastrointestinal: nl liver, spleen, non-tender, soft Results Result Diagram: 12/08/16 0500 12/08/16 0500 RENETTA WATSON MD Dec 08, 2016 17:58
[2016-12-08] MEDS ORDERED: PREGABALIN 75 MG CAP PO SCH (21:00)
[2016-12-08] MEDS: ATORVASTATIN 80 MG TAB PO SCH (22:23)
[2016-12-09] VITALS (63 sets, daily range): BP systolic 84–149; BP diastolic 45–82; PULSE 71–97; RESP 12–30
[2016-12-09] MEDS: FENTAnyl 50 MCG/ML VIAL IV PRN (00:47)
[2016-12-09] MEDS: ALBUTEROL/IPRATROPIUM (NEB) 3 ML AMP HHN SCH ×4 (00:49→11:44)
[2016-12-09] MEDS: ACCU-CHEK XX SCH (02:00)
[2016-12-09] MEDS: PANTOPRAZOLE 40 MG INJ IV SCH (06:07)
[2016-12-09] MEDS: METHYLPREDNISOLONE 40 MG INJ IV SCH (06:07)
[2016-12-09] MEDS: PIPER-TAZO 3.375 GM IV (PMX) 100 ML IVPB SCH ×3 (06:08→21:40)
[2016-12-09] MEDS: FUROSEMIDE 20 MG INJ IV SCH ×2 (06:08→17:27)
[2016-12-09 06:22] LABS: ADD SCAN DIFF NO
[2016-12-09 06:33] LABS: BASOPHILS % 0.2 % (0.0-2.0); HEMATOCRIT 26.7 % (37.0-47.0); HEMOGLOBIN 8.9 g/dl (12.0-16.0); LYMPHOCYTES # 2.7 10^3/ul (0.8-2.9); LYMPHOCYTES % 12.1 % (15.0-51.0); MEAN CORPUSCULAR HGB CONC 33.3 g/dl (32.0-37.0); MEAN CORPUSCULAR VOLUME 89.9 fl (82.0-101.0); MEAN PLATELET VOLUME 10.5 fl (7.4-10.4); MONOCYTE # 0.9 10^3/ul (0.3-0.9); MONOCYTES % 4.2 % (0.0-11.0); NEUTROPHIL # 18.1 10^3/ul (1.6-7.5); NEUTROPHILS % 80.8 % (39.0-77.0); NUCLEATED RED BLOOD CELLS # 0.1 10^3/ul (0.0-0.0); NUCLEATED RED BLOOD CELLS% 0.2 /100WBC (0.0-0.0); PLATELET COUNT 352 10^3/UL (140-415); RED BLOOD COUNT 2.97 10^6/ul (4.20-5.40); RED CELL DISTRIBUTION WIDTH 13.6 % (11.5-14.5); WHITE BLOOD COUNT 22.4 10^3/ul (4.8-10.8)
[2016-12-09 06:46] LABS: CREATININE 0.73 mg/dl (0.44-1.00)
[2016-12-09 06:47] LABS: CALCIUM 8.3 mg/dl (8.4-10.2); MAGNESIUM 2.1 mg/dl (1.7-2.5); PHOSPHORUS 3.4 mg/dl (2.5-4.9)
[2016-12-09] MEDS: INSULIN ASPART [NOVOLOG] 3 ML PEN SC SCH ×6 (07:35→21:00)
--- NOTE | 2016-12-09 08:39 | RADRPT ---
PROCEDURE: Chest 1 views. CLINICAL INDICATION: Shortness of breath TECHNIQUE: AP views of the chest was obtained. COMPARISON: Yesterday FINDINGS: The heart is large. Mediasternotomy wires and surgical clips overlie the heart. Right neck vascular access sheath is stable. Central pulmonary vascular congestion and interstitial prominence in both lungs is unchanged. Retrocardiac opacity stable. Small right pleural effusion with associated bas ilar atelectasis is stable. Osseous structures are unchanged. IMPRESSION: Cardiomegaly . Stable central pulmonary vascular congestion and interstitial prominence in both lungs. Stable retrocardiac opacity that may reflect left lower lobe atelectasis or infiltrate combined with small pleural effusion. Stable small right pleural effusion with associated basilar atelectasis. RPTAT: AA .Ole Garcia MD, MD Date Time Electronically viewed and signed by .Ole Garcia MD, on 12/09/2016 08:39 .P/
[2016-12-09] MEDS: DULOXETINE 20 MG CAP DR PO SCH (09:08)
[2016-12-09] MEDS: PREGABALIN 25 MG CAP PO SCH (09:08)
[2016-12-09] MEDS: AMIODARONE 200 MG TAB PO SCH ×2 (09:09→21:03)
[2016-12-09] MEDS: METOPROLOL 25 MG TAB PO SCH ×2 (09:10→21:03)
[2016-12-09] MEDS: ASPIRIN 81 MG TAB PO SCH (09:10)
[2016-12-09] MEDS: INSULIN DETEMIR [LEVEMIR] 3ML CART SC SCH ×2 (09:11→21:05)
--- NOTE | 2016-12-09 09:26 | CONS ---
Date/Time of Note Date/Time of Note DATE: 12/09/16 TIME: 09:23 Assessment/Plan Assessment/Plan Additional Assessment/Plan Chest x-ray was reviewed from today which is showing left lower lobe infiltrative changes. Assessment and recommendations; 1. Patient admitted for acute GA underwent CABG surgery. 2. Underlying COPD. With exacerbation. 3. History of diabetes. 4. Left lower lobe pneumonia. Start BiPAP. Will obtain an ABG. Start vancomycin and cefepime. Continue Solu -Medrol and DuoNeb. Consultation Date/Type/Reason Admit Date/Time Dec 02, 2016 at 17:14 Initial Consult Date 12/05/16 Type of Consultation: Pulmonary/critical care 24 HR Interval Summary Free Text/Dictation Patient condition is tenuous at best. She is complaining of shortness of breath. Complains of scant cough. With very little sputum production. Denies any fever chills. Complaint mild chest pain at the sternal incision site. General exam; elderly woman, appears anxious. Exam/Review of Systems Vital Signs Vitals Vital Signs Date Time Temp Pulse Resp B/P Pulse Ox O2 Delivery O2 Flow Rate FiO2 12/09/16 09:03 90 22 96 Nasal Cannula 4.5 12/09/16 06:00 98.9 120/56 12/07/16 23:31 40 Intake and Output 12/08/16 12/08/16 12/09/16 15:00 23:00 07:00 Intake Total 240 ml 530 ml 200 ml Output Total 620 ml 1050 ml 1230 ml Balance -380 ml -520 ml -1030 ml Exam HEENT examination; supple neck, no JVD. No lymphadenopathy. Midline trachea. Patient has fair dentition. Pupils are midsize and reactive to light. No neck masses. Chest examination; bilateral lower lobe crackles. S1-S2 audible, no murmurs. Regular rhythm. There is a dressing applied over the sternum. Abdomen examination; soft, no organomegaly. Nontender. Bowel sounds audible. Extremity exam; no peripheral edema. Left lower extremity is wrapped in a pressure dressing. CURRICULUM AND ASSESSMENT COORDINATOR examination; no focal deficit. Results Result Diagram: 12/09/16 0615 12/09/16 0615 Results 24 hrs Laboratory Tests Test 12/08/16 11:05 12/08/16 15:28 12/08/16 16:52 12/08/16 22:26 Bedside Glucose 124 83 139 129 Test 12/09/16 01:57 12/09/16 06:06 12/09/16 06:15 12/09/16 09:12 Bedside Glucose 261 H 99 233 H White Blood Count 22.4 H Red Blood Count 2.97 L Hemoglobin 8.9 L Hematocrit 26.7 L Mean Corpuscular Volume 89.9 Mean Corpuscular Hemoglobin 30.0 Mean Corpuscular Hemoglobin Concent 33.3 Red Cell Distribution Width 13.6 Platelet Count 352 # Mean Platelet Volume 10.5 H Neutrophils % 80.8 H Lymphocytes % 12.1 L Monocytes % 4.2 Eosinophils % 0.0 Basophils % 0.2 Nucleated Red Blood Cells % 0.2 H Neutrophils # 18.1 H Lymphocytes # 2.7 Monocytes # 0.9 Eosinophils # 0.0 Basophils # 0.0 Nucleated Red Blood Cells # 0.1 H Sodium Level 138 Potassium Level 4.0 Chloride Level 103 Carbon Dioxide Level 28 Anion Gap 11 Blood Urea Nitrogen 34 H Creatinine 0.73 Glucose Level 192 Calcium Level 8.3 L Phosphorus Level 3.4 Magnesium Level 2.1 Medications Medications Current Medications Aspirin (Aspirin) 81 mg DAILY PO Last administered on 12/09/16 09:10; Admin Dose 81 MG; Start 12/03/16 at 09:00 Al Hydrox/Mg Hydrox/Simethicone (Mag-Al Plus) 30 ml Q4H PRN PO GASTROINTESTINAL UPSET; Start 12/02/16 at 15:00 Ondansetron HCl (Zofran Inj) 4 mg Q4H PRN IV NAUSEA AND/OR VOMITING; Start at 15:00 Duloxetine HCl (Cymbalta) 20 mg DAILY PO Last administered on 12/09/16 09:08; Admin Dose 20 MG; Start 12/03/16 at 09:00 Ondansetron HCl (Zofran Tab) 4 mg Q6H PRN PO NAUSEA AND/OR VOMITING; Start at 15:00 Nitroglycerin (Nitroglycerin (Sl Tab) 0.4 Mg) 1 tab Q5M PRN SL CHEST PAIN; Start 12/02/16 at 15:00 Acetaminophen (Tylenol Tab) 650 mg Q6H PRN PO PAIN LEVEL 1-3 OR FEVER Last administered on 12/03/16 12:40; Admin Dose 650 MG; Start 12/02/16 at 15:00 Acetaminophen (Tylenol Supp) 650 mg Q6H PRN [place] PAIN LEVEL 1-3 OR FEVER Last administered on 12/05/16 03:52; Admin Dose 650 MG; Start 12/02/16 at 15:00 Docusate Sodium (Colace) 100 mg Q12H PRN PO CONSTIPATION; Start 12/02/16 at 15: 00 Miscellaneous Information 1 ea NOTE XX ; Start 12/02/16 at 18:30 Glucose (Glutose) 15 gm Q15M PRN PO DECREASED GLUCOSE; Start 12/02/16 at 18:30 Glucose (Glutose) 22.5 gm Q15M PRN PO DECREASED GLUCOSE; Start 12/02/16 at 18: 30 Dextrose (D50w Syringe) 25 ml Q15M PRN IV DECREASED GLUCOSE Last administered on 12/04/16 23:54; Admin Dose 25 ML; Start 12/02/16 at 18:30 Dextrose (D50w Syringe) 50 ml Q15M PRN IV DECREASED GLUCOSE; Start 12/02/16 at 18:30 Glucagon (Glucagen) 1 mg Q15M PRN IM DECREASED GLUCOSE; Start 12/02/16 at 18:30 Glucose (Glutose) 15 gm Q15M PRN BUCCAL DECREASED GLUCOSE; Start 12/02/16 at 18 :30 Atorvastatin Calcium 80 mg 80 mg HS PO Last administered on 12/08/16 22:23; Admin Dose 80 MG; Start 12/02/16 at 21:00 Nitroglycerin/ Dextrose (Nitroglycerin 50 Mg/D5W (Pmx)) 250 ml @ 1.5 mls/hr TITRATE IV ; Start 12/04/16 at 22:30 Pantoprazole (Protonix Iv) 40 mg DAILY@06 IV Last administered on 12/09/16 06: 07; Admin Dose 40 MG; Start 12/05/16 at 06:00 Insulin Detemir (Levemir) 35 unit BID SC Last administered on 12/09/16 09:11; Admin Dose 35 UNIT; Start 12/06/16 at 21:00 Miscellaneous Information Pt Diabetic. Pls ... ONCE XX ; Start 12/06/16 at 11:30 Dopamine HCl/ Sodium Chloride (NS) 250 ml @ 7.16 mls/hr TITRATE IV ; Start at 13:00 Diagnostic Test (Pha) (Accu-Chek) 1 ea 02 XX Last administered on 12/09/16 02: 00; Admin Dose 1 EA; Start 12/08/16 at 02:00 Metoprolol Tartrate (Lopressor) 25 mg BID PO Last administered on 12/09/16 09: 10; Admin Dose 25 MG; Start 12/07/16 at 21:00 Amiodarone HCl (Cordarone) 200 mg BID PO Last administered on 12/09/16 09:09; Admin Dose 200 MG; Start 12/08/16 at 09:30 Fentanyl 25 mcg 25 mcg Q4 PRN IV PAIN Last administered on 12/09/16 00:47; Admin Dose 25 MCG; Start 12/08/16 at 11:00 Piperacillin Sod/ Tazobactam Sod (Zosyn 3.375gm/ 100 ml (Pmx)) 100 ml @ 200 mls /hr Q8 IVPB Last administered on 12/09/16 06:08; Admin Dose 200 MLS/HR; Start 12/08/16 at 14:00 Methylprednisolone Sodium Succinate (Solu-Medrol) 40 mg Q8 IV Last administered on 12/09/16 06:07; Admin Dose 40 MG; Start 12/08/16 at 14:00 Pregabalin (Lyrica) 75 mg BID PO Last administered on 12/09/16 09:08; Admin Dose 75 MG; Start 12/08/16 at 22:21 WILMER DUTTON Dec 09, 2016 09:25
[2016-12-09] MEDS ORDERED: CEFEPIME 1GM/50 ML (PMX) 50 ML IVPB SCH (09:30)
[2016-12-09] MEDS ORDERED: VANCOMYCIN IV PER PHARMACY XX SCH (09:30)
--- NOTE | 2016-12-09 09:57 | PN ---
Date/Time of Note Date/Time of Note DATE: 12/09/16 TIME: 09:56 Assessment/Plan Lines/Catheters IV Catheter Type (from Nrs): CORDIS Stearns in Place (from Nrs): Yes Assessment/Plan Chief Complaint/Hosp Course IMPRESSION: 1. Coronary artery disease. 2. Status post myocardial infarction. 3. Hepatitis C, by report. 4 Hx IVDU SP CABG PNA Hemodynamically stable Abx Extubated to tele Discussed with the patient. All questions answered. Problems: Subjective 24 Hr Interval Summary Constitutional: improved Pain Control: mild Exam/Review of Systems Vital Signs Vitals Vital Signs Date Time Temp Pulse Resp B/P Pulse Ox O2 Delivery O2 Flow Rate FiO2 12/09/16 09:03 90 22 96 Nasal Cannula 4.5 12/09/16 06:00 98.9 120/56 12/07/16 23:31 40 Intake and Output 12/08/16 12/08/16 12/09/16 15:00 23:00 07:00 Intake Total 240 ml 530 ml 200 ml Output Total 620 ml 1050 ml 1230 ml Balance -380 ml -520 ml -1030 ml Exam Neck: non-tender, supple Respiratory: clear to auscultation, normal air movement Cardiovascular: nl pulses, regular rate and rhythm Gastrointestinal: nl liver, spleen, non-tender, soft Results Result Diagram: 12/09/1615 12/09/1615 RENETTA WATSON MD Dec 09, 2016 09:57
[2016-12-09] MEDS ORDERED: LIDOCAINE 1% (MDV) 20 ML INJ ONE (10:14)
--- NOTE | 2016-12-09 10:16 | PN ---
Date/Time of Note Date/Time of Note DATE: 12/09/16 TIME: 10:13 Assessment/Plan VTE Prophylaxis VTE Prophylaxis Intervention: LMWH Lines/Catheters IV [facility] CORDIS Urinary Cath still in place: Yes Reason Cath still needed: other (indicate) (Post op, acute resp failure, will be intubated soon ) Assessment/Plan Assessment/Plan ASSESSMENT AND PLAN: 1. Non-ST elevation myocardial infarction. The patient is status post left heart catheterization with a finding of multivessel coronary artery disease. Cardiothoracic surgeon consulted Postop day # 5 status post CABG, continue aspirin , Lovenox, statin and monitor blood pressure 2. Acute resp failure, not moving air, will need to be intubated 2. Obstructive coronary artery disease as above. Cardiothoracic surgeon has been consulted. Status post CABG, continue medical management 3. Essential hypertension, well controlled on medical management. 4. Dyslipidemia. Continue statin. 5. Major depression. Continue Cymbalta. 6. Diabetes mellitus. Continue Levemir, insulin sliding scale, low carb diet. 7. Diabetic neuropathy. Continue Lyrica. 8. For deep venous thrombosis prophylaxis, continue Lovenox 9. For gastrointestinal prophylaxis, on proton pump inhibitor. We will continue to monitor patient closely. pt is not moving air, very tight on lung exam, plan for intubation and also plan for A line placement for Access to get ABG Subjective 24 Hr Interval Summary Free Text/Dictation pt is very tachypneic, not able to get ABG, may need intubation, plan for A line also Exam/Review of Systems Vital Signs Vitals Vital Signs Date Time Temp Pulse Resp B/P Pulse Ox O2 Delivery O2 Flow Rate FiO2 12/09/16 09:03 90 22 96 Nasal Cannula 4.5 12/09/16 06:00 98.9 120/56 12/07/16 23:31 40 Intake and Output 12/08/16 12/08/16 12/09/16 15:00 23:00 07:00 Intake Total 240 ml 530 ml 200 ml Output Total 620 ml 1050 ml 1230 ml Balance -380 ml -520 ml -1030 ml Exam General: lethargic, tired, moderate to severe resp distress HEENT: Atraumatic, normocephalic. The pupils are equal and round . Neck: Supple with full range of motion. Chest: Normal expansion of the thorax during inspiration, surgical site is dry and clean Lungs: tachypnea, Bilateral wheezing +, not moving air Heart: Normal S1-S2, Regular rhythm and rate. Abdomen: Soft , nontender, nondistended , bowel sounds are present. Extremities: Normal to inspection, no edema no cyanosis + lundberg catheter Neurologic: Normal mental status,The patient is awake, alert and oriented . Results Result Diagram: 12/09/16 0615 12/09/16 0615 Results 24 hrs Laboratory Tests Test 12/08/16 11:05 12/08/16 15:28 12/08/16 16:52 12/08/16 22:26 Bedside Glucose 124 83 139 129 Test 12/09/16 01:57 12/09/16 06:06 12/09/16 06:15 12/09/16 09:12 Bedside Glucose 261 H 99 233 H White Blood Count 22.4 H Red Blood Count 2.97 L Hemoglobin 8.9 L Hematocrit 26.7 L Mean Corpuscular Volume 89.9 Mean Corpuscular Hemoglobin 30.0 Mean Corpuscular Hemoglobin Concent 33.3 Red Cell Distribution Width 13.6 Platelet Count 352 # Mean Platelet Volume 10.5 H Neutrophils % 80.8 H Lymphocytes % 12.1 L Monocytes % 4.2 Eosinophils % 0.0 Basophils % 0.2 Nucleated Red Blood Cells % 0.2 H Neutrophils # 18.1 H Lymphocytes # 2.7 Monocytes # 0.9 Eosinophils # 0.0 Basophils # 0.0 Nucleated Red Blood Cells # 0.1 H Sodium Level 138 Potassium Level 4.0 Chloride Level 103 Carbon Dioxide Level 28 Anion Gap 11 Blood Urea Nitrogen 34 H Creatinine 0.73 Glucose Level 192 Calcium Level 8.3 L Phosphorus Level 3.4 Magnesium Level 2.1 Medications Medications Current Medications Aspirin (Aspirin) 81 mg DAILY PO Last administered on 12/09/16t 09:10; Admin Dose 81 MG; Start 12/03/16 at 09:00 Al Hydrox/Mg Hydrox/Simethicone (Mag-Al Plus) 30 ml Q4H PRN PO GASTROINTESTINAL UPSET; Start 12/02/16 at 15:00 Ondansetron HCl (Zofran Inj) 4 mg Q4H PRN IV NAUSEA AND/OR VOMITING; Start at 15:00 Duloxetine HCl (Cymbalta) 20 mg DAILY PO Last administered on 12/09/16 09:08; Admin Dose 20 MG; Start 12/03/16 at 09:00 Ondansetron HCl (Zofran Tab) 4 mg Q6H PRN PO NAUSEA AND/OR VOMITING; Start at 15:00 Nitroglycerin (Nitroglycerin (Sl Tab) 0.4 Mg) 1 tab Q5M PRN SL CHEST PAIN; Start 12/02/16 at 15:00 Acetaminophen (Tylenol Tab) 650 mg Q6H PRN PO PAIN LEVEL 1-3 OR FEVER Last administered on 12/03/16 12:40; Admin Dose 650 MG; Start 12/02/16 at 15:00 Acetaminophen (Tylenol Supp) 650 mg Q6H PRN [place] PAIN LEVEL 1-3 OR FEVER Last administered on 12/05/16 03:52; Admin Dose 650 MG; Start 12/02/16 at 15:00 Docusate Sodium (Colace) 100 mg Q12H PRN PO CONSTIPATION; Start 12/02/16 at 15: 00 Miscellaneous Information 1 ea NOTE XX ; Start 12/02/16 at 18:30 Glucose (Glutose) 15 gm Q15M PRN PO DECREASED GLUCOSE; Start 12/02/16 at 18:30 Glucose (Glutose) 22.5 gm Q15M PRN PO DECREASED GLUCOSE; Start 12/02/16 at 18: 30 Dextrose (D50w Syringe) 25 ml Q15M PRN IV DECREASED GLUCOSE Last administered on 12/04/16 23:54; Admin Dose 25 ML; Start 12/02/16 at 18:30 Dextrose (D50w Syringe) 50 ml Q15M PRN IV DECREASED GLUCOSE; Start 12/02/16 at 18:30 Glucagon (Glucagen) 1 mg Q15M PRN IM DECREASED GLUCOSE; Start 12/02/16 at 18:30 Glucose (Glutose) 15 gm Q15M PRN BUCCAL DECREASED GLUCOSE; Start 12/02/16 at 18 :30 Atorvastatin Calcium 80 mg 80 mg HS PO Last administered on 12/08/16 22:23; Admin Dose 80 MG; Start 12/02/16 at 21:00 Nitroglycerin/ Dextrose (Nitroglycerin 50 Mg/D5W (Pmx)) 250 ml @ 1.5 mls/hr TITRATE IV ; Start 12/04/16 at 22:30 Pantoprazole (Protonix Iv) 40 mg DAILY@06 IV Last administered on 12/09/16 06: 07; Admin Dose 40 MG; Start 12/05/16 at 06:00 Insulin Detemir (Levemir) 35 unit BID SC Last administered on 12/09/16 09:11; Admin Dose 35 UNIT; Start 12/06/16 at 21:00 Miscellaneous Information Pt Diabetic. Pls ... ONCE XX ; Start 12/06/16 at 11:30 Dopamine HCl/ Sodium Chloride (NS) 250 ml @ 7.16 mls/hr TITRATE IV ; Start at 13:00 Diagnostic Test (Pha) (Accu-Chek) 1 ea 02 XX Last administered on 12/09/16 02: 00; Admin Dose 1 EA; Start 12/08/16 at 02:00 Metoprolol Tartrate (Lopressor) 25 mg BID PO Last administered on 12/09/16 09: 10; Admin Dose 25 MG; Start 12/07/16 at 21:00 Amiodarone HCl (Cordarone) 200 mg BID PO Last administered on 12/09/16 09:09; Admin Dose 200 MG; Start 12/08/16 at 09:30 Fentanyl 25 mcg 25 mcg Q4 PRN IV PAIN Last administered on 12/09/16 00:47; Admin Dose 25 MCG; Start 12/08/16 at 11:00 Piperacillin Sod/ Tazobactam Sod (Zosyn 3.375gm/ 100 ml (Pmx)) 100 ml @ 200 mls /hr Q8 IVPB Last administered on 12/09/16 06:08; Admin Dose 200 MLS/HR; Start 12/08/16 at 14:00 Methylprednisolone Sodium Succinate (Solu-Medrol) 40 mg Q8 IV Last administered on 12/09/16 06:07; Admin Dose 40 MG; Start 12/08/16 at 14:00 Pregabalin 75 mg 75 mg BID PO Last administered on 12/09/16 09:08; Admin Dose 75 MG; Start 12/08/16 at 22:21 Cefepime HCl 50 ml @ 100 mls/hr Q12 IVPB ; Start 12/09/16 at 09:30 Vancomycin HCl 2 gm/Sodium Chloride 500 ml @ 125 mls/hr ONCE IVPB ; Start 12/09 at 10:30; Stop 12/09/16 at 14:29 Vancomycin HCl/ Sodium Chloride (Vancocin/NS) 250 ml @ 83.333 mls/ hr Q24H IVPB ; Start 12/10/16 at 10:00 Lorazepam (Ativan) 1 mg ONCE ONCE IV ; Start 12/09/16 at 10:30; Stop 12/09/16 at 10:31 NIKITA MCCALL MD Dec 09, 2016 10:16
[2016-12-09] MEDS ORDERED: LORAZEPAM 2 MG INJ IV ONE (10:30)
[2016-12-09] MEDS ORDERED: VANCOMYCIN 2 GM in SOD CHLORIDE 0.9% 500 ML IVPB SCH (10:30)
[2016-12-09 10:44] LABS: AADO2 Arterial 241.3 mmHg (7.0-24.0); Arterial Base Excess 1.8 mmol/L (-3.0-3); Arterial COHb 0.3 % (0.0-3.0); Arterial Fraction of Oxyhgb 94.4 % (93.0-99.0); Arterial HCO3 24.9 mmol/L (22.0-26.0); Arterial MetHb 0.3 % (0.0-1.5); Arterial Total Hemglobin 12.1 g/dl (12.0-18.0); MODE MASK - VENTI
--- NOTE | 2016-12-09 11:58 | EN ---
Date/Time of Note Date/Time of Note DATE: 12/09/16 TIME: 11:56 Event Note Medicine Medicine Event Note This is an oral intubation note. Patient developing respiratory distress requiring intubation. Procedure was spent with the patient earlier this morning however she was tried on nasal cannula and patient refused BiPAP patient with significant clinical decompensation over the last 40 12:55 hour. Procedure; patient was given propofol 40 mg IV push followed by endotracheal intubation by 7.5 tube which was done without difficulty however in the process the patient's front incisor tooth completely came loose off the socket. There was direct vocal cord visualization during the intubation process. Placement was confirmed by end-tidal CO2. Chest x-ray been ordered. WILMER DUTTON Dec 09, 2016 11:58
[2016-12-09] MEDS ORDERED: PROPOFOL 100 ML ONE (11:59)
[2016-12-09] MEDS: PROPOFOL 100 ML IV SCH ×4 (12:11→22:14)
[2016-12-09] MEDS: METHYLPREDNISOLONE 125 MG INJ IV SCH ×2 (12:12→17:26)
--- NOTE | 2016-12-09 12:51 | RADRPT ---
PROCEDURE: Chest Radiograph. CLINICAL INDICATION: Post intubation TECHNIQUE: Single frontal chest radiograph. COMPARISON: Chest radiograph 12/09/1978 06:18 a.m. FINDINGS: There has been interval placement of endotracheal tube with distal tip approximate 3.3 cm above the teodoro. The teodoro is not well seen on the study. A right internal jugular cordis line remains in p lace.. The patient is status post sternotomy. The heart is magnified. There is mild improved centr al vascular congestion and pulmonary edema. A left retrocardiac opacity is grossly unchanged. Ther e is stable mild right basilar atelectasis and small right pleural effusion. The bones are intact . IMPRESSION: 1. Interval placement of endotracheal tube with distal tip approximately 3.3 cm above the teodoro. 2. Stable cardiomegaly with improved central vascular congestion and pulmonary edema. 3. Otherwise stable radiographic appearance of chest compared to 06:18 a.m. RPTAT: KK .Kalin Choudhary MD, MD Date Time Electronically viewed and signed by .Kalin Choudhary MD, on 12/09/2016 12:51 .B/
--- NOTE | 2016-12-09 12:56 | CONS ---
Date/Time of Note Date/Time of Note DATE: 12/09/16 TIME: 12:45 Assessment/Plan Assessment/Plan Additional Assessment/Plan Non-ST elevation LA Multivessel coronary artery disease status post CABG Cardiomyopathy with ejection fraction 50% Respiratory failure Acute decompensated systolic and diastolic congestive heart failure Paroxysmal atrial fibrillation, currently sinus Diabetes Hypertension Active tobacco use -Patient with worsening respiratory status with possible need for intubation. Would continue IV diuretics as blood pressure and renal function permits. Respiratory therapy and treatments as per our pulmonary colleagues. Continue aspirin and statin therapy. Remains in sinus rhythm Consultation Date/Type/Reason Admit Date/Time Dec 02, 2016 at 17:14 Type of Consultation: cv 24 HR Interval Summary Free Text/Dictation Patient with worsening respiratory status today, denies chest pain Exam/Review of Systems Vital Signs Vitals Vital Signs Date Time Temp Pulse Resp B/P Pulse Ox O2 Delivery O2 Flow Rate FiO2 12/09/16 09:03 90 22 96 Nasal Cannula 4.5 12/09/16 06:00 98.9 120/56 12/07/16 23:31 40 Intake and Output 12/08/16 12/08/16 12/09/16 15:00 23:00 07:00 Intake Total 240 ml 530 ml 200 ml Output Total 620 ml 1050 ml 1230 ml Balance -380 ml -520 ml -1030 ml Exam On facemask, appears dyspneic Constitutional: alert, oriented Head: normocephalic Neck: supple Respiratory: other (Coarse breath sounds bilaterally, and expiratory wheezing) Cardiovascular: other (S1-S2 heard), regular rate and rhythm Gastrointestinal: bowel sounds, non-tender, other (No guarding), soft Extremities: edema (Trace), other (No cyanosis) Results Result Diagram: 12/09/1615 12/09/1615 Results 24 hrs Laboratory Tests Test 12/08/16 15:28 12/08/16 16:52 12/08/16 22:26 12/09/16 01:57 Bedside Glucose 83 139 129 261 H Test 12/09/16 06:06 12/09/16 06:15 12/09/16 09:12 12/09/16 10:36 Bedside Glucose 99 233 H White Blood Count 22.4 H Red Blood Count 2.97 L Hemoglobin 8.9 L Hematocrit 26.7 L Mean Corpuscular Volume 89.9 Mean Corpuscular Hemoglobin 30.0 Mean Corpuscular Hemoglobin Concent 33.3 Red Cell Distribution Width 13.6 Platelet Count 352 # Mean Platelet Volume 10.5 H Neutrophils % 80.8 H Lymphocytes % 12.1 L Monocytes % 4.2 Eosinophils % 0.0 Basophils % 0.2 Nucleated Red Blood Cells % 0.2 H Neutrophils # 18.1 H Lymphocytes # 2.7 Monocytes # 0.9 Eosinophils # 0.0 Basophils # 0.0 Nucleated Red Blood Cells # 0.1 H Sodium Level 138 Potassium Level 4.0 Chloride Level 103 Carbon Dioxide Level 28 Anion Gap 11 Blood Urea Nitrogen 34 H Creatinine 0.73 Glucose Level 192 Calcium Level 8.3 L Phosphorus Level 3.4 Magnesium Level 2.1 Blood Gas Specimen Source Blood arterial Arterial Blood Date Drawn 12/09/2016 10:30:48 AM Arterial Blood pH (Temp corrected) 7.481 H Arterial Blood pCO2 (Temp correct) 34.1 L Arterial Blood pO2 (Temp corrected) 76.8 L Arterial Blood HCO3 24.9 Arterial Blood Base Excess 1.8 Arterial Blood Oxygen Saturation 95.0 Amor Test N/A Arterial Blood Gas Puncture Site A-Line Arterial Blood Carboxyhemoglobin 0.3 Arterial Blood Methemoglobin 0.3 Blood Gas A-a O2 Differential 241.3 H Oxyhemoglobin Percent 94.4 Total Hemoglobin 12.1 Blood Gas Temperature 37.0 Blood Gas Modality MASK - VENTI FiO2 50.0 Blood Gas Notified Whom JLD Blood Gas Notified Time 12/09/2016 10:43:23 AM Test 12/09/16 10:51 Bedside Glucose 251 H Medications Medications Current Medications Aspirin (Aspirin) 81 mg DAILY PO Last administered on 12/09/16 09:10; Admin Dose 81 MG; Start 12/03/16 at 09:00 Al Hydrox/Mg Hydrox/Simethicone (Mag-Al Plus) 30 ml Q4H PRN PO GASTROINTESTINAL UPSET; Start 12/02/16 at 15:00 Ondansetron HCl (Zofran Inj) 4 mg Q4H PRN IV NAUSEA AND/OR VOMITING; Start at 15:00 Duloxetine HCl (Cymbalta) 20 mg DAILY PO Last administered on 12/09/16 09:08; Admin Dose 20 MG; Start 12/03/16 at 09:00 Ondansetron HCl (Zofran Tab) 4 mg Q6H PRN PO NAUSEA AND/OR VOMITING; Start at 15:00 Nitroglycerin (Nitroglycerin (Sl Tab) 0.4 Mg) 1 tab Q5M PRN SL CHEST PAIN; Start 12/02/16 at 15:00 Acetaminophen (Tylenol Tab) 650 mg Q6H PRN PO PAIN LEVEL 1-3 OR FEVER Last administered on 12/03/16 12:40; Admin Dose 650 MG; Start 12/02/16 at 15:00 Acetaminophen (Tylenol Supp) 650 mg Q6H PRN PA PAIN LEVEL 1-3 OR FEVER Last administered on 12/05/16 03:52; Admin Dose 650 MG; Start 12/02/16 at 15:00 Docusate Sodium (Colace) 100 mg Q12H PRN PO CONSTIPATION; Start 12/02/16 at 15: 00 Miscellaneous Information 1 ea NOTE XX ; Start 12/02/16 at 18:30 Glucose (Glutose) 15 gm Q15M PRN PO DECREASED GLUCOSE; Start 12/02/16 at 18:30 Glucose (Glutose) 22.5 gm Q15M PRN PO DECREASED GLUCOSE; Start 12/02/16 at 18: 30 Dextrose (D50w Syringe) 25 ml Q15M PRN IV DECREASED GLUCOSE Last administered on 12/04/16 23:54; Admin Dose 25 ML; Start 12/02/16 at 18:30 Dextrose (D50w Syringe) 50 ml Q15M PRN IV DECREASED GLUCOSE; Start 12/02/16 at 18:30 Glucagon (Glucagen) 1 mg Q15M PRN IM DECREASED GLUCOSE; Start 12/02/16 at 18:30 Glucose (Glutose) 15 gm Q15M PRN BUCCAL DECREASED GLUCOSE; Start 12/02/16 at 18 :30 Atorvastatin Calcium 80 mg 80 mg HS PO Last administered on 12/08/16 22:23; Admin Dose 80 MG; Start 12/02/16 at 21:00 Nitroglycerin/ Dextrose (Nitroglycerin 50 Mg/D5W (Pmx)) 250 ml @ 1.5 mls/hr TITRATE IV ; Start 12/04/16 at 22:30 Pantoprazole (Protonix Iv) 40 mg DAILY@06 IV Last administered on 12/09/16 06: 07; Admin Dose 40 MG; Start 12/05/16 at 06:00 Insulin Detemir (Levemir) 35 unit BID SC Last administered on 12/09/16 09:11; Admin Dose 35 UNIT; Start 12/06/16 at 21:00 Miscellaneous Information Pt Diabetic. Pls ... ONCE XX ; Start 12/06/16 at 11:30 Dopamine HCl/ Sodium Chloride (NS) 250 ml @ 7.16 mls/hr TITRATE IV ; Start at 13:00 Diagnostic Test (Pha) (Accu-Chek) 1 ea 02 XX Last administered on 12/09/16 02: 00; Admin Dose 1 EA; Start 12/08/16 at 02:00 Metoprolol Tartrate (Lopressor) 25 mg BID PO Last administered on 12/09/16 09: 10; Admin Dose 25 MG; Start 12/07/16 at 21:00 Amiodarone HCl (Cordarone) 200 mg BID PO Last administered on 12/09/16 09:09; Admin Dose 200 MG; Start 12/08/16 at 09:30 Fentanyl 25 mcg 25 mcg Q4 PRN IV PAIN Last administered on 12/09/16 00:47; Admin Dose 25 MCG; Start 12/08/16 at 11:00 Piperacillin Sod/ Tazobactam Sod 100 ml @ 200 mls/hr Q8 IVPB Last administered on 12/09/16 06:08; Admin Dose 200 MLS/HR; Start 12/08/16 at 14:00 Vancomycin HCl/ Sodium Chloride (Vancocin/NS) 500 ml @ 125 mls/hr ONCE IVPB Last administered on 12/09/16 10:55; Admin Dose 125 MLS/HR; Start 12/09/16 at 10:30; Stop 12/09/16 at 14:29 Methylprednisolone Sodium Succinate (Solu-Medrol) 80 mg Q6 IV Last administered on 12/09/16 12:12; Admin Dose 80 MG; Start 12/09/16 at 12:00 Pregabalin 75 mg 75 mg BID PO ; Start 12/09/16 at 21:00 Vancomycin HCl 250 ml @ 125 mls/hr Q12H IVPB ; Start 12/09/16 at 23:00 Propofol 100 ml @ 2.865 mls/ hr Q12H IV Last administered on 3/29/17at 12:11; Admin Dose 28.65 MLS/HR; Start 12/09/16 at 12:00 Fentanyl (Sublimaze) 100 ml @ 2.5 mls/hr TITRATE IV ; Start 12/09/16 at 12:00 Manuel Escudero DO Dec 09, 2016 12:56
[2016-12-09 13:08] LABS: AADO2 Arterial 476.8 mmHg (7.0-24.0); Arterial Base Excess 0.5 mmol/L (-3.0-3); Arterial COHb 0.2 % (0.0-3.0); Arterial Fraction of Oxyhgb 98.3 % (93.0-99.0); Arterial HCO3 24.7 mmol/L (22.0-26.0); Arterial MetHb 0.2 % (0.0-1.5); Arterial Total Hemglobin 9.7 g/dl (12.0-18.0); MODE VENT - AC
--- NOTE | 2016-12-09 14:54 | RADRPT ---
Vent Rate: 89 bpm RR Interval: 0 msec CO Interval: 132 msec QRS Duration: 142 msec QT Interval: 432 msec QTC Interval: 525 msec P-R-T [place]: 48 - -28 - 65 degrees Sinus rhythm with occasional premature ventricular complexes Nonspecific intraventricular block Cannot rule out Septal infarct , age undetermined Abnormal ECG Electronically Signed By: Manuel Escudero [id number]
[2016-12-09] MEDS ORDERED: ALBUTEROL HFA 8 GM INHALER INH PRN (15:30)
[2016-12-09] MEDS ORDERED: IPRATROPIUM (HFA) 12.9 GM INHALER INH PRN (17:00)
[2016-12-09] MEDS: ALBUTEROL HFA 8 GM INHALER INH SCH ×2 (17:41→21:00)
[2016-12-09] MEDS: IPRATROPIUM (HFA) 12.9 GM INHALER INH SCH ×2 (17:41→21:00)
--- NOTE | 2016-12-09 17:46 | PN ---
DATE: 12/09/2016 TIME: 1720 hours. SUBJECTIVE: The patient is in the intensive care unit. She required intubation overnight. She has been off of her home opioid medications starting yesterday. They were discontinued by myself. She required intubation. OBJECTIVE: VITAL SIGNS: Blood pressure 114/58, pulse of 82 and regular, respirations of 16, saturations 100% o n 70% FIO2. CHEST: Bilateral inspiratory and expiratory rhonchi on examination. CORONARY: Regular rate and rhythm. Laboratory tests have been reviewed. She is currently on fentanyl titration protocol. I will discontinue her p.r.n. IV push fentanyl. I will stop her pregabalin also, and other than that, she is off any other opioids or benzodiazepines , only as needed. Dictated By: JUAN ROACH MD, LP/[place] Conf#: [id number] DID#: [id number]
[2016-12-09] MEDS ORDERED: POTASSIUM CHLORIDE 40 MEQ, CALCIUM CHLORIDE 10% 1 GM in DEXTROSE 5%-0.225% NACL 970 ML IV SCH (18:59)
[2016-12-09] MEDS ORDERED: PREGABALIN 75 MG CAP PO SCH (21:00)
[2016-12-09] MEDS: ATORVASTATIN 80 MG TAB PO SCH (21:02)
[2016-12-09] MEDS: VANCOMYCIN 1 GM in NS 250 ML IVPB SCH (23:26)
[2016-12-10] VITALS (96 sets, daily range): BP systolic 91–182; BP diastolic 44–102; PULSE 59–80; RESP 0–29
[2016-12-10] MEDS: FENTAnyl (DRIP) 1000 mcg/100mL 100 ML IV SCH ×2 (00:01→14:58)
[2016-12-10] MEDS: METHYLPREDNISOLONE 125 MG INJ IV SCH ×5 (00:07→23:49)
[2016-12-10] MEDS: INSULIN ASPART [NOVOLOG] 3 ML PEN SC SCH ×6 (01:09→21:29)
[2016-12-10] MEDS: IPRATROPIUM (HFA) 12.9 GM INHALER INH SCH ×7 (01:44→20:19)
[2016-12-10] MEDS: ALBUTEROL HFA 8 GM INHALER INH SCH ×6 (01:44→20:19)
[2016-12-10] MEDS: ACCU-CHEK XX SCH (02:30)
[2016-12-10] MEDS: PROPOFOL 100 ML IV SCH ×4 (02:47→23:42)
[2016-12-10] MEDS: PANTOPRAZOLE 40 MG INJ IV SCH (05:24)
[2016-12-10] MEDS: PIPER-TAZO 3.375 GM IV (PMX) 100 ML IVPB SCH ×3 (05:25→21:46)
[2016-12-10] MEDS: FUROSEMIDE 20 MG INJ IV SCH ×2 (05:32→18:00)
[2016-12-10 05:34] LABS: Allen Test ACCEPTAB; Arterial Base Excess 3.6 mmol/L (-3.0-3); Arterial COHb 0.3 % (0.0-3.0); Arterial Fraction of Oxyhgb 94.1 % (93.0-99.0); Arterial HCO3 27.9 mmol/L (22.0-26.0); Arterial MetHb 0.1 % (0.0-1.5); MODE VENT - AC
[2016-12-10 05:35] LABS: ADD SCAN DIFF NO
[2016-12-10 05:53] LABS: BASOPHILS % 0.1 % (0.0-2.0); HEMATOCRIT 26.6 % (37.0-47.0); HEMOGLOBIN 8.8 g/dl (12.0-16.0); LYMPHOCYTES # 2.5 10^3/ul (0.8-2.9); LYMPHOCYTES % 11.7 % (15.0-51.0); MEAN CORPUSCULAR HEMOGLOBIN 29.8 pg (29.0-33.0); MEAN CORPUSCULAR HGB CONC 33.1 g/dl (32.0-37.0); MEAN CORPUSCULAR VOLUME 90.2 fl (82.0-101.0); MEAN PLATELET VOLUME 10.3 fl (7.4-10.4); MONOCYTES % 4.6 % (0.0-11.0); NEUTROPHILS % 79.8 % (39.0-77.0); NUCLEATED RED BLOOD CELLS% 0.1 /100WBC (0.0-0.0); PLATELET COUNT 381 10^3/UL (140-415); RED BLOOD COUNT 2.95 10^6/ul (4.20-5.40); RED CELL DISTRIBUTION WIDTH 13.6 % (11.5-14.5); WHITE BLOOD COUNT 21.4 10^3/ul (4.8-10.8)
[2016-12-10 05:54] LABS: INR 0.98
[2016-12-10 06:04] LABS: ALBUMIN 2.8 g/dl (3.3-4.9)
[2016-12-10 06:05] LABS: POTASSIUM 3.5 mmol/L (3.5-5.1)
[2016-12-10 06:07] LABS: BILIRUBIN,INDIRECT 0.3 mg/dl (0-1.1); BILIRUBIN,TOTAL 0.3 mg/dl (0.2-1.3); CREATININE 0.84 mg/dl (0.44-1.00); TOTAL PROTEIN 5.6 g/dl (6.1-8.1)
[2016-12-10 06:08] LABS: CALCIUM 8.1 mg/dl (8.4-10.2)
[2016-12-10] MEDS: METOPROLOL 25 MG TAB PO SCH ×2 (09:00→21:22)
--- NOTE | 2016-12-10 09:15 | RADRPT ---
PROCEDURE: XR Chest 1 view. CLINICAL INDICATION: Shortness of breath TECHNIQUE: AP views of the chest was obtained. COMPARISON: Yesterday FINDINGS: The heart is large. Calcified atherosclerosis is noted in the aorta. Endotracheal tube has its tip approximately 4.8 cm above the teodoro. Nasogastric tube has its distal end curled in the stomach an d its tip directed superiorly in the mid thoracic esophagus. Right-sided vascular access sheath is unchanged. Median sternotomy wires overlie the heart. Retrocardiac opacity is stable. Atelectasis is noted at the right lung base The osseous structures are unchanged. IMPRESSION: Cardiomegaly with calcified atherosclerosis in the aorta. Nasogastric tube that has its distal end curled in the stomach and its tip directed superiorly withi n the mid thoracic esophagus. Repositioning of the nasogastric tube is recommended. Endotracheal tube with its tip approximately 4.7 cm above the teodoro. Stable retrocardiac opacity that may reflect left lower lobe atelectasis or infiltrate combined with small pleural effusion. Atelectasis at the right lung base. RPTAT: AA .Ole Garcia MD, Date Time Electronically viewed and signed by .Ole Garcia MD, on 12/10/2016 09:14 .P/
--- NOTE | 2016-12-10 09:44 | CONS ---
Date/Time of Note Date/Time of Note DATE: 12/10/16 TIME: 09:39 Assessment/Plan Assessment/Plan Additional Assessment/Plan Chest x-ray was reviewed from today which is showing left lower lobe infiltrative changes. Endotracheal tube is at an adequate level. Ventilator settings; AC of 14, tidal volume 500, PEEP of 5, 65% FiO2. Assessment and recommendations; 1. Patient admitted for acute ME underwent emergent CABG surgery. 2. Underlying severe COPD requiring reintubation for respiratory failure. 3. Hypertension. 4. Diabetes. 5. Left lower lobe pneumonia. Continue current treatment. Continue current ventilator settings and other supportive measures. Continue Solu-Medrol at current dosing. Start the patient on tube feeding. Consultation Date/Type/Reason Admit Date/Time Dec 02, 2016 at 17:14 Initial Consult Date 12/05/16 Type of Consultation: Pulmonary/critical care 24 HR Interval Summary Free Text/Dictation Patient condition remains critical. She had to be intubated yesterday for respiratory failure from COPD exacerbation. Patient however has remained hemodynamically stable. General exam; elderly lady, orally intubated, sedated. Currently in no distress. Exam/Review of Systems Vital Signs Vitals Vital Signs Date Time Temp Pulse Resp B/P Pulse Ox O2 Delivery O2 Flow Rate FiO2 12/10/16 08:30 65 12/10/16 08:30 97.7 79 17 139/73 100 12/10/16 08:00 Mechanical Ventilator 12/09/16 09:03 4.5 Intake and Output 12/09/16 12/09/16 12/10/16 15:00 23:00 07:00 Intake Total 75 ml 214.5 ml 555.1 ml Output Total 805 ml 525 ml 170 ml Balance -730 ml -310.5 ml 385.1 ml Exam HEENT exam; supple neck, no JVD. No lymphadenopathy. Midline trachea. Pupils are small bilaterally. Orally intubated. Patient does have multiple carious teeth. Chest exam; diminished but clear breath sounds bilaterally in the upper lobes as well as right lower lobe. Diminished breath sounds left lower lobe. S1-S2 audible, no murmurs. Regular rhythm. There is a dressing applied over the sternum. Abdomen examination; soft, no organomegaly. Bowel sounds audible. Extremity exam is; no peripheral edema. Pulses 1+ bilaterally. [employer] examination; patient is sedated. Results Result Diagram: 12/10/16 0400 12/10/16 0400 Results 24 hrs Laboratory Tests Test 12/09/16 10:36 12/09/16 10:51 12/09/16 13:00 12/09/16 17:26 Blood Gas Specimen Source Blood arterial Blood arterial Arterial Blood Date Drawn 12/09/2016 10:30:48 AM 12/09/2016 1:01:30 PM Arterial Blood pH (Temp corrected) 7.481 H 7.428 Arterial Blood pCO2 (Temp correct) 34.1 L 38.3 Arterial Blood pO2 (Temp corrected) 76.8 L 197.9 H Arterial Blood HCO3 24.9 24.7 Arterial Blood Base Excess 1.8 0.5 Arterial Blood Oxygen Saturation 95.0 98.7 H Amor Test N/A N/A Arterial Blood Gas Puncture Site A-Line A-Line Arterial Blood Carboxyhemoglobin 0.3 0.2 Arterial Blood Methemoglobin 0.3 0.2 Blood Gas A-a O2 Differential 241.3 H 476.8 H Oxyhemoglobin Percent 94.4 98.3 Total Hemoglobin 12.1 9.7 L Blood Gas Temperature 37.0 37.0 Blood Gas Modality MASK - VENTI VENT - AC FiO2 50.0 100.0 Blood Gas Notified Whom CRYSTAL ROJAS Blood Gas Notified Time 12/09/2016 10:43:23 AM 12/09/2016 1:08:26 PM Bedside Glucose 251 H 207 Blood Gas Respiration Rate 14.0 Blood Gas Actual Respiration Rate 14 Blood Gas Tidal Volume 500.0 Blood Gas Low PEEP Setting 5.0 Test 12/09/16 19:57 12/10/16 01:06 12/10/16 02:10 12/10/16 04:00 Bedside Glucose 216 267 H 245 H White Blood Count 21.4 H Red Blood Count 2.95 L Hemoglobin 8.8 L Hematocrit 26.6 L Mean Corpuscular Volume 90.2 Mean Corpuscular Hemoglobin 29.8 Mean Corpuscular Hemoglobin Concent 33.1 Red Cell Distribution Width 13.6 Platelet Count 381 Mean Platelet Volume 10.3 Neutrophils % 79.8 H Lymphocytes % 11.7 L Monocytes % 4.6 Eosinophils % 0.0 Basophils % 0.1 Nucleated Red Blood Cells % 0.1 H Neutrophils # 17.0 H Lymphocytes # 2.5 Monocytes # 1.0 H Eosinophils # 0.0 Basophils # 0.0 Nucleated Red Blood Cells # 0.0 Prothrombin Time 13.0 Prothrombin Time Ratio 1.0 INR International Normalized Ratio 0.98 Activated Partial Thromboplast Time 28.0 Sodium Level 141 Potassium Level 3.5 Chloride Level 104 Carbon Dioxide Level 28 Anion Gap 13 Blood Urea Nitrogen 39 H Creatinine 0.84 Glucose Level 212 Calcium Level 8.1 L Total Bilirubin 0.3 Direct Bilirubin 0.00 Indirect Bilirubin 0.3 Aspartate Amino Transf (AST/SGOT) 28 Alanine Aminotransferase (ALT/SGPT) 34 Alkaline Phosphatase 74 Total Protein 5.6 L Albumin 2.8 L Globulin 2.80 Albumin/Globulin Ratio 1.00 Test 12/10/16 05:00 12/10/16 05:15 Blood Gas Specimen Source Blood arterial Arterial Blood Date Drawn 12/10/2016 5:30:14 AM Arterial Blood pH (Temp corrected) 7.449 Arterial Blood pCO2 (Temp correct) 41.1 Arterial Blood pO2 (Temp corrected) 76.6 L Arterial Blood HCO3 27.9 H Arterial Blood Base Excess 3.6 H Arterial Blood Oxygen Saturation 94.5 L Amor Test ACCEPTAB Arterial Blood Gas Puncture Site Right Radial Arterial Blood Carboxyhemoglobin 0.3 Arterial Blood Methemoglobin 0.1 Blood Gas A-a O2 Differential 306.0 H Oxyhemoglobin Percent 94.1 Total Hemoglobin 11.0 L Blood Gas Temperature 37.0 Blood Gas Respiration Rate 14.0 Blood Gas Actual Respiration Rate 14 Blood Gas Modality VENT - AC FiO2 60.0 Blood Gas Tidal Volume 500.0 Blood Gas Low PEEP Setting 5.0 Blood Gas Notified Whom MH Blood Gas Notified Time 12/10/2016 5:34:22 AM Bedside Glucose 210 Medications Medications Current Medications Aspirin (Aspirin) 81 mg DAILY PO Last administered on 12/09/16 09:10; Admin Dose 81 MG; Start 12/03/16 at 09:00 Al Hydrox/Mg Hydrox/Simethicone (Mag-Al Plus) 30 ml Q4H PRN PO GASTROINTESTINAL UPSET; Start 12/02/16 at 15:00 Ondansetron HCl (Zofran Inj) 4 mg Q4H PRN IV NAUSEA AND/OR VOMITING; Start at 15:00 Duloxetine HCl (Cymbalta) 20 mg DAILY PO Last administered on 12/09/16 09:08; Admin Dose 20 MG; Start 12/03/16 at 09:00 Ondansetron HCl (Zofran Tab) 4 mg Q6H PRN PO NAUSEA AND/OR VOMITING; Start at 15:00 Nitroglycerin (Nitroglycerin (Sl Tab) 0.4 Mg) 1 tab Q5M PRN SL CHEST PAIN; Start 12/02/16 at 15:00 Acetaminophen (Tylenol Tab) 650 mg Q6H PRN PO PAIN LEVEL 1-3 OR FEVER Last administered on 12/03/16 12:40; Admin Dose 650 MG; Start 12/02/16 at 15:00 Acetaminophen (Tylenol Supp) 650 mg Q6H PRN [place] PAIN LEVEL 1-3 OR FEVER Last administered on 12/05/16 03:52; Admin Dose 650 MG; Start 12/02/16 at 15:00 Docusate Sodium (Colace) 100 mg Q12H PRN PO CONSTIPATION; Start 12/02/16 at 15: 00 Miscellaneous Information 1 ea NOTE XX ; Start 12/02/16 at 18:30 Glucose (Glutose) 15 gm Q15M PRN PO DECREASED GLUCOSE; Start 12/02/16 at 18:30 Glucose (Glutose) 22.5 gm Q15M PRN PO DECREASED GLUCOSE; Start 12/02/16 at 18: 30 Dextrose (D50w Syringe) 25 ml Q15M PRN IV DECREASED GLUCOSE Last administered on 12/04/16 23:54; Admin Dose 25 ML; Start 12/02/16 at 18:30 Dextrose (D50w Syringe) 50 ml Q15M PRN IV DECREASED GLUCOSE; Start 12/02/16 at 18:30 Glucagon (Glucagen) 1 mg Q15M PRN IM DECREASED GLUCOSE; Start 12/02/16 at 18:30 Glucose (Glutose) 15 gm Q15M PRN BUCCAL DECREASED GLUCOSE; Start 12/02/16 at 18 :30 Atorvastatin Calcium 80 mg 80 mg HS PO Last administered on 12/09/16 21:02; Admin Dose 80 MG; Start 12/02/16 at 21:00 Nitroglycerin/ Dextrose (Nitroglycerin 50 Mg/D5W (Pmx)) 250 ml @ 1.5 mls/hr TITRATE IV ; Start 12/04/16 at 22:30 Pantoprazole (Protonix Iv) 40 mg DAILY@06 IV Last administered on 12/10/16 05: 24; Admin Dose 40 MG; Start 12/05/16 at 06:00 Insulin Detemir (Levemir) 35 unit BID SC Last administered on 12/09/16 21:05; Admin Dose 35 UNIT; Start 12/06/16 at 21:00 Miscellaneous Information Pt Diabetic. Pls ... ONCE XX ; Start 12/06/16 at 11:30 Dopamine HCl/ Sodium Chloride (NS) 250 ml @ 7.16 mls/hr TITRATE IV ; Start at 13:00 Diagnostic Test (Pha) (Accu-Chek) 1 ea 02 XX Last administered on 12/10/16 02: 30; Admin Dose 1 EA; Start 12/08/16 at 02:00 Metoprolol Tartrate (Lopressor) 25 mg BID PO Last administered on 12/09/16 21: 03; Admin Dose 25 MG; Start 12/07/16 at 21:00 Amiodarone HCl 200 mg 200 mg BID PO Last administered on 12/09/16 21:03; Admin Dose 200 MG; Start 12/08/16 at 09:30 Piperacillin Sod/ Tazobactam Sod (Zosyn 3.375gm/ 100 ml (Pmx)) 100 ml @ 200 mls /hr Q8 IVPB Last administered on 12/10/16 05:25; Admin Dose 200 MLS/HR; Start 12/08/16 at 14:00 Methylprednisolone Sodium Succinate 80 mg 80 mg Q6 IV Last administered on 12/10 05:25; Admin Dose 80 MG; Start 12/09/16 at 12:00 Vancomycin HCl 250 ml @ 125 mls/hr Q12H IVPB Last administered on 12/09/16 23 :26; Admin Dose 125 MLS/HR; Start 12/09/16 at 23:00 Propofol 100 ml @ 2.865 mls/ hr Q12H IV Last administered on 12/10/16 02:47; Admin Dose 22.874 MLS/HR; Start 12/09/16 at 12:00 Fentanyl (Sublimaze) 100 ml @ 2.5 mls/hr TITRATE IV Last administered on 00:01; Admin Dose 2.5 MLS/HR; Start 12/09/16 at 12:00 Insulin Aspart (Novolog Insulin Pen) NOVOLOG *MODERATE* ALGORI... Q4 SC Last administered on 12/10/16t 05:18; Admin Dose 4 UNIT; Start 12/09/16 at 13:00 Ipratropium [place] (Atrovent Hfa) 4 puff Q4H PRN INH SHORTNESS OF BREATH; Start 12/09/16 at 17:00 WILMER DUTTON Dec 10, 2016 09:44
[2016-12-10] MEDS: DULOXETINE 20 MG CAP DR PO SCH (09:54)
[2016-12-10] MEDS: ASPIRIN 81 MG TAB PO SCH (09:54)
[2016-12-10] MEDS: AMIODARONE 200 MG TAB PO SCH ×2 (09:55→21:21)
[2016-12-10] MEDS: INSULIN DETEMIR [LEVEMIR] 3ML CART SC SCH ×2 (10:00→21:27)
[2016-12-10] MEDS ORDERED: VANCOMYCIN 1.5 GM in SOD CHLORIDE 0.9% 250 ML IVPB SCH (10:00)
--- NOTE | 2016-12-10 10:33 | PN ---
Date/Time of Note Date/Time of Note DATE: 12/10/16 TIME: 10:29 Assessment/Plan VTE Prophylaxis VTE Prophylaxis Intervention: LMWH Lines/Catheters IV C[facility]ter Type (from [facility]): A Line Urinary Cath still in place: Yes Reason Cath still needed: other (indicate) Assessment/Plan Chief Complaint/Hosp Course ASSESSMENT AND PLAN: 1. Non-ST elevation myocardial infarction. The patient is status post left heart catheterization with a finding of multivessel coronary artery disease. Cardiothoracic surgeon consulted Postop day # 4 status post CABG, continue aspirin , Lovenox, statin and monitor blood pressure 2. Obstructive coronary artery disease as above. Cardiothoracic surgeon has been consulted. Status post CABG, continue medical management 3. Essential hypertension, well controlled on medical management. 4. Dyslipidemia. Continue statin. 5. Major depression. Continue Cymbalta. 6. Diabetes mellitus. Continue Levemir, insulin sliding scale, low carb diet. 7. Diabetic neuropathy. Continue Lyrica. 8. For deep venous thrombosis prophylaxis, continue Lovenox 9. For gastrointestinal prophylaxis, on proton pump inhibitor. We will continue to monitor patient closely. Further recommendations, management and treatment as per clinical course. Continue to monitor in ICU secondary to shortness of breath Problems: Subjective 24 Hr Interval Summary Free Text/Dictation Patient has been intubated on 12/09/2016 On sedation via propofol and fentanyl Exam/Review of Systems Vital Signs Vitals Vital Signs Date Time Temp Pulse Resp B/P Pulse Ox O2 Delivery O2 Flow Rate FiO2 12/10/16 08:30 65 12/10/16 08:30 97.7 79 17 139/73 100 12/10/16 08:00 Mechanical Ventilator 12/09/16 09:03 4.5 Intake and Output 12/09/16 12/09/16 12/10/16 15:00 23:00 07:00 Intake Total 75 ml 214.5 ml 555.1 ml Output Total 805 ml 525 ml 270 ml Balance -730 ml -310.5 ml 285.1 ml Exam General: The patient is intubated and sedated HEENT: Atraumatic, normocephalic. The pupils are equal and round . Neck: Supple Chest: Normal expansion of the thorax during inspiration Lungs: Clear to auscultation bilaterally Heart: Normal S1-S2, Regular rhythm and rate. Abdomen: Soft , nontender, nondistended , bowel sounds are present. Extremities: Normal to inspection, no edema no cyanosis, left lower extremity surgical site is dry and clean with some bruising Neurologic: Sedated Results Result Diagram: 12/10/16 0400 12/10/16 0400 Results 24 hrs Laboratory Tests Test 12/09/16 10:36 12/09/16 10:51 12/09/16 13:00 12/09/16 17:26 Blood Gas Specimen Source Blood arterial Blood arterial Arterial Blood Date Drawn 12/09/2016 10:30:48 AM 12/09/2016 1:01:30 PM Arterial Blood pH (Temp corrected) 7.481 H 7.428 Arterial Blood pCO2 (Temp correct) 34.1 L 38.3 Arterial Blood pO2 (Temp corrected) 76.8 L 197.9 H Arterial Blood HCO3 24.9 24.7 Arterial Blood Base Excess 1.8 0.5 Arterial Blood Oxygen Saturation 95.0 98.7 H Amor Test N/A N/A Arterial Blood Gas Puncture Site A-Line A-Line Arterial Blood Carboxyhemoglobin 0.3 0.2 Arterial Blood Methemoglobin 0.3 0.2 Blood Gas A-a O2 Differential 241.3 H 476.8 H Oxyhemoglobin Percent 94.4 98.3 Total Hemoglobin 12.1 9.7 L Blood Gas Temperature 37.0 37.0 Blood Gas Modality MASK - VENTI VENT - AC FiO2 50.0 100.0 Blood Gas Notified Whom RAMEZD JLJanice Blood Gas Notified Time 12/09/2016 10:43:23 AM 12/09/2016 1:08:26 PM Bedside Glucose 251 H 207 Blood Gas Respiration Rate 14.0 Blood Gas Actual Respiration Rate 14 Blood Gas Tidal Volume 500.0 Blood Gas Low PEEP Setting 5.0 Test 12/09/16 19:57 12/10/16 01:06 12/10/16 02:10 12/10/16 04:00 Bedside Glucose 216 267 H 245 H White Blood Count 21.4 H Red Blood Count 2.95 L Hemoglobin 8.8 L Hematocrit 26.6 L Mean Corpuscular Volume 90.2 Mean Corpuscular Hemoglobin 29.8 Mean Corpuscular Hemoglobin Concent 33.1 Red Cell Distribution Width 13.6 Platelet Count 381 Mean Platelet Volume 10.3 Neutrophils % 79.8 H Lymphocytes % 11.7 L Monocytes % 4.6 Eosinophils % 0.0 Basophils % 0.1 Nucleated Red Blood Cells % 0.1 H Neutrophils # 17.0 H Lymphocytes # 2.5 Monocytes # 1.0 H Eosinophils # 0.0 Basophils # 0.0 Nucleated Red Blood Cells # 0.0 Prothrombin Time 13.0 Prothrombin Time Ratio 1.0 INR International Normalized Ratio 0.98 Activated Partial Thromboplast Time 28.0 Sodium Level 141 Potassium Level 3.5 Chloride Level 104 Carbon Dioxide Level 28 Anion Gap 13 Blood Urea Nitrogen 39 H Creatinine 0.84 Glucose Level 212 Calcium Level 8.1 L Total Bilirubin 0.3 Direct Bilirubin 0.00 Indirect Bilirubin 0.3 Aspartate Amino Transf (AST/SGOT) 28 Alanine Aminotransferase (ALT/SGPT) 34 Alkaline Phosphatase 74 Total Protein 5.6 L Albumin 2.8 L Globulin 2.80 Albumin/Globulin Ratio 1.00 Test 12/10/16 05:00 12/10/16 05:15 Blood Gas Specimen Source Blood arterial Arterial Blood Date Drawn 12/10/2016 5:30:14 AM Arterial Blood pH (Temp corrected) 7.449 Arterial Blood pCO2 (Temp correct) 41.1 Arterial Blood pO2 (Temp corrected) 76.6 L Arterial Blood HCO3 27.9 H Arterial Blood Base Excess 3.6 H Arterial Blood Oxygen Saturation 94.5 L Amor Test ACCEPTAB Arterial Blood Gas Puncture Site Right Radial Arterial Blood Carboxyhemoglobin 0.3 Arterial Blood Methemoglobin 0.1 Blood Gas A-a O2 Differential 306.0 H Oxyhemoglobin Percent 94.1 Total Hemoglobin 11.0 L Blood Gas Temperature 37.0 Blood Gas Respiration Rate 14.0 Blood Gas Actual Respiration Rate 14 Blood Gas Modality VENT - AC FiO2 60.0 Blood Gas Tidal Volume 500.0 Blood Gas Low PEEP Setting 5.0 Blood Gas Notified Whom Blood Gas Notified Time 12/10/2016 5:34:22 AM Bedside Glucose 210 Medications Medications Current Medications Aspirin (Aspirin) 81 mg DAILY PO Last administered on 12/10/16t 09:54; Admin Dose 81 MG; Start 12/03/16 at 09:00 Al Hydrox/Mg Hydrox/Simethicone (Mag-Al Plus) 30 ml Q4H PRN PO GASTROINTESTINAL UPSET; Start 12/02/16 at 15:00 Ondansetron HCl (Zofran Inj) 4 mg Q4H PRN IV NAUSEA AND/OR VOMITING; Start at 15:00 Duloxetine HCl (Cymbalta) 20 mg DAILY PO Last administered on 12/10/16 09:54; Admin Dose 20 MG; Start 12/03/16 at 09:00 Ondansetron HCl (Zofran Tab) 4 mg Q6H PRN PO NAUSEA AND/OR VOMITING; Start at 15:00 Nitroglycerin (Nitroglycerin (Sl Tab) 0.4 Mg) 1 tab Q5M PRN SL CHEST PAIN; Start 12/02/16 at 15:00 Acetaminophen (Tylenol Tab) 650 mg Q6H PRN PO PAIN LEVEL 1-3 OR FEVER Last administered on 12/03/16 12:40; Admin Dose 650 MG; Start 12/02/16 at 15:00 Acetaminophen (Tylenol Supp) 650 mg Q6H PRN ME PAIN LEVEL 1-3 OR FEVER Last administered on 12/05/16 03:52; Admin Dose 650 MG; Start 12/02/16 at 15:00 Docusate Sodium (Colace) 100 mg Q12H PRN PO CONSTIPATION; Start 12/02/16 at 15: 00 Miscellaneous Information 1 ea NOTE XX ; Start 12/02/16 at 18:30 Glucose (Glutose) 15 gm Q15M PRN PO DECREASED GLUCOSE; Start 12/02/16 at 18:30 Glucose (Glutose) 22.5 gm Q15M PRN PO DECREASED GLUCOSE; Start 12/02/16 at 18: 30 Dextrose (D50w Syringe) 25 ml Q15M PRN IV DECREASED GLUCOSE Last administered on 12/04/16 23:54; Admin Dose 25 ML; Start 12/02/16 at 18:30 Dextrose (D50w Syringe) 50 ml Q15M PRN IV DECREASED GLUCOSE; Start 12/02/16 at 18:30 Glucagon (Glucagen) 1 mg Q15M PRN IM DECREASED GLUCOSE; Start 12/02/16 at 18:30 Glucose (Glutose) 15 gm Q15M PRN BUCCAL DECREASED GLUCOSE; Start 12/02/16 at 18 :30 Atorvastatin Calcium 80 mg 80 mg HS PO Last administered on 12/09/16 21:02; Admin Dose 80 MG; Start 12/02/16 at 21:00 Nitroglycerin/ Dextrose (Nitroglycerin 50 Mg/D5W (Pmx)) 250 ml @ 1.5 mls/hr TITRATE IV ; Start 12/04/16 at 22:30 Pantoprazole (Protonix Iv) 40 mg DAILY@06 IV Last administered on 12/10/16 05: 24; Admin Dose 40 MG; Start 12/05/16 at 06:00 Insulin Detemir (Levemir) 35 unit BID SC Last administered on 12/10/16 10:00; Admin Dose 35 UNIT; Start 12/06/16 at 21:00 Miscellaneous Information Pt Diabetic. Pls ... ONCE XX ; Start 12/06/16 at 11:30 Dopamine HCl/ Sodium Chloride (NS) 250 ml @ 7.16 mls/hr TITRATE IV ; Start at 13:00 Diagnostic Test (Pha) (Accu-Chek) 1 ea 02 XX Last administered on 12/10/16 02: 30; Admin Dose 1 EA; Start 12/08/16 at 02:00 Metoprolol Tartrate (Lopressor) 25 mg BID PO Last administered on 12/09/16 21: 03; Admin Dose 25 MG; Start 12/07/16 at 21:00 Amiodarone HCl 200 mg 200 mg BID PO Last administered on 12/10/16 09:55; Admin Dose 200 MG; Start 12/08/16 at 09:30 Piperacillin Sod/ Tazobactam Sod (Zosyn 3.375gm/ 100 ml (Pmx)) 100 ml @ 200 mls /hr Q8 IVPB Last administered on 12/10/16 05:25; Admin Dose 200 MLS/HR; Start 12/08/16 at 14:00 Methylprednisolone Sodium Succinate 80 mg 80 mg Q6 IV Last administered on 12/10 05:25; Admin Dose 80 MG; Start 12/09/16 at 12:00 Vancomycin HCl 250 ml @ 125 mls/hr Q12H IVPB Last administered on 12/09/16 23 :26; Admin Dose 125 MLS/HR; Start 12/09/16 at 23:00 Propofol 100 ml @ 2.865 mls/ hr Q12H IV Last administered on 12/10/16 02:47; Admin Dose 22.874 MLS/HR; Start 12/09/16 at 12:00 Fentanyl (Sublimaze) 100 ml @ 2.5 mls/hr TITRATE IV Last administered on 00:01; Admin Dose 2.5 MLS/HR; Start 12/09/16 at 12:00 Insulin Aspart (Novolog Insulin Pen) NOVOLOG *MODERATE* ALGORI... Q4 SC Last administered on 12/10/16 09:59; Admin Dose 2 UNIT; Start 12/09/16 at 13:00 Ipratropium [place] (Atrovent Hfa) 4 puff Q4H PRN INH SHORTNESS OF BREATH; Start 12/09/16 at 17:00 NAHUM BLAIR MD Dec 10, 2016 10:33
[2016-12-10] MEDS: ENOXAPARIN 30 MG/0.3 ML SYG SC SCH (11:33)
[2016-12-10] MEDS: VANCOMYCIN 1 GM in NS 250 ML IVPB SCH ×2 (11:41→22:52)
--- NOTE | 2016-12-10 13:39 | CONS ---
Date/Time of Note Date/Time of Note DATE: 12/10/16 TIME: 13:37 Assessment/Plan Assessment/Plan Additional Assessment/Plan Non-ST elevation AR Multivessel coronary artery disease status post CABG Cardiomyopathy with ejection fraction 50% Respiratory failure status post reintubation Acute decompensated systolic and diastolic congestive heart failure Paroxysmal atrial fibrillation, currently sinus Diabetes Active tobacco use -Diuretics as blood pressure permits, continue aspirin and statin therapy, maintain potassium above 4.0 and magnesium above 2.0. Consultation Date/Type/Reason Admit Date/Time Dec 02, 2016 at 17:14 Type of Consultation: cv 24 HR Interval Summary Free Text/Dictation Patient intubated yesterday secondary to worsening respiratory status. Remains sedated and intubated Exam/Review of Systems Vital Signs Vitals Vital Signs Date Time Temp Pulse Resp B/P Pulse Ox O2 Delivery O2 Flow Rate FiO2 12/10/16 12:15 72 14 126/62 98 12/10/16 12:00 65 12/10/16 12:00 97.8 Mechanical Ventilator 12/09/16 09:03 4.5 Intake and Output 12/09/16 12/09/16 12/10/16 15:00 23:00 07:00 Intake Total 75 ml 214.5 ml 555.1 ml Output Total 805 ml 525 ml 270 ml Balance -730 ml -310.5 ml 285.1 ml Exam Sedated and intubated, no apparent distress Head: normocephalic ENMT: intubated Respiratory: other (Coarse breath sounds bilaterally, no wheezing or rhonchi) Cardiovascular: other (S1-S2 heard), regular rate and rhythm Gastrointestinal: bowel sounds, non-tender, other (No guarding), soft Extremities: edema, other (No cyanosis) Results Result Diagram: 12/10/16 0400 12/10/16 0400 Results 24 hrs Laboratory Tests Test 12/09/16 17:26 12/09/16 19:57 12/10/16 01:06 12/10/16 02:10 Bedside Glucose 207 216 267 H 245 H Test 12/10/16 04:00 12/10/16 05:00 12/10/16 05:15 12/10/16 09:56 White Blood Count 21.4 H Red Blood Count 2.95 L Hemoglobin 8.8 L Hematocrit 26.6 L Mean Corpuscular Volume 90.2 Mean Corpuscular Hemoglobin 29.8 Mean Corpuscular Hemoglobin Concent 33.1 Red Cell Distribution Width 13.6 Platelet Count 381 Mean Platelet Volume 10.3 Neutrophils % 79.8 H Lymphocytes % 11.7 L Monocytes % 4.6 Eosinophils % 0.0 Basophils % 0.1 Nucleated Red Blood Cells % 0.1 H Neutrophils # 17.0 H Lymphocytes # 2.5 Monocytes # 1.0 H Eosinophils # 0.0 Basophils # 0.0 Nucleated Red Blood Cells # 0.0 Prothrombin Time 13.0 Prothrombin Time Ratio 1.0 INR International Normalized Ratio 0.98 Activated Partial Thromboplast Time 28.0 Sodium Level 141 Potassium Level 3.5 Chloride Level 104 Carbon Dioxide Level 28 Anion Gap 13 Blood Urea Nitrogen 39 H Creatinine 0.84 Glucose Level 212 Calcium Level 8.1 L Total Bilirubin 0.3 Direct Bilirubin 0.00 Indirect Bilirubin 0.3 Aspartate Amino Transf (AST/SGOT) 28 Alanine Aminotransferase (ALT/SGPT) 34 Alkaline Phosphatase 74 Total Protein 5.6 L Albumin 2.8 L Globulin 2.80 Albumin/Globulin Ratio 1.00 Blood Gas Specimen Source Blood arterial Arterial Blood Date Drawn 12/10/2016 5:30:14 AM Arterial Blood pH (Temp corrected) 7.449 Arterial Blood pCO2 (Temp correct) 41.1 Arterial Blood pO2 (Temp corrected) 76.6 L Arterial Blood HCO3 27.9 H Arterial Blood Base Excess 3.6 H Arterial Blood Oxygen Saturation 94.5 L Amor Test ACCEPTAB Arterial Blood Gas Puncture Site Right Radial Arterial Blood Carboxyhemoglobin 0.3 Arterial Blood Methemoglobin 0.1 Blood Gas A-a O2 Differential 306.0 H Oxyhemoglobin Percent 94.1 Total Hemoglobin 11.0 L Blood Gas Temperature 37.0 Blood Gas Respiration Rate 14.0 Blood Gas Actual Respiration Rate 14 Blood Gas Modality VENT - AC FiO2 60.0 Blood Gas Tidal Volume 500.0 Blood Gas Low PEEP Setting 5.0 Blood Gas Notified Whom MH Blood Gas Notified Time 12/10/2016 5:34:22 AM Bedside Glucose 210 175 Medications Medications Current Medications Aspirin (Aspirin) 81 mg DAILY PO Last administered on 12/10/16t 09:54; Admin Dose 81 MG; Start 12/03/16 at 09:00 Al Hydrox/Mg Hydrox/Simethicone (Mag-Al Plus) 30 ml Q4H PRN PO GASTROINTESTINAL UPSET; Start 12/02/16 at 15:00 Ondansetron HCl (Zofran Inj) 4 mg Q4H PRN IV NAUSEA AND/OR VOMITING; Start at 15:00 Duloxetine HCl (Cymbalta) 20 mg DAILY PO Last administered on 12/10/16 09:54; Admin Dose 20 MG; Start 12/03/16 at 09:00 Ondansetron HCl (Zofran Tab) 4 mg Q6H PRN PO NAUSEA AND/OR VOMITING; Start at 15:00 Nitroglycerin (Nitroglycerin (Sl Tab) 0.4 Mg) 1 tab Q5M PRN SL CHEST PAIN; Start 12/02/16 at 15:00 Acetaminophen (Tylenol Tab) 650 mg Q6H PRN PO PAIN LEVEL 1-3 OR FEVER Last administered on 12/03/16 12:40; Admin Dose 650 MG; Start 12/02/16 at 15:00 Acetaminophen (Tylenol Supp) [address] PAIN LEVEL 1-3 OR FEVER Last administered on 12/05/16 03:52; Admin Dose 650 MG; Start 12/02/16 at 15:00 Docusate Sodium (Colace) 100 mg Q12H PRN PO CONSTIPATION; Start 12/02/16 at 15: 00 Miscellaneous Information 1 ea NOTE XX ; Start 12/02/16 at 18:30 Glucose (Glutose) 15 gm Q15M PRN PO DECREASED GLUCOSE; Start 12/02/16 at 18:30 Glucose (Glutose) 22.5 gm Q15M PRN PO DECREASED GLUCOSE; Start 12/02/16 at 18: 30 Dextrose (D50w Syringe) 25 ml Q15M PRN IV DECREASED GLUCOSE Last administered on 12/04/16 23:54; Admin Dose 25 ML; Start 12/02/16 at 18:30 Dextrose (D50w Syringe) 50 ml Q15M PRN IV DECREASED GLUCOSE; Start 12/02/16 at 18:30 Glucagon (Glucagen) 1 mg Q15M PRN IM DECREASED GLUCOSE; Start 12/02/16 at 18:30 Glucose (Glutose) 15 gm Q15M PRN BUCCAL DECREASED GLUCOSE; Start 12/02/16 at 18 :30 Atorvastatin Calcium 80 mg 80 mg HS PO Last administered on 12/09/16 21:02; Admin Dose 80 MG; Start 12/02/16 at 21:00 Nitroglycerin/ Dextrose (Nitroglycerin 50 Mg/D5W (Pmx)) 250 ml @ 1.5 mls/hr TITRATE IV ; Start 12/04/16 at 22:30 Pantoprazole (Protonix Iv) 40 mg DAILY@06 IV Last administered on 12/10/16 05: 24; Admin Dose 40 MG; Start 12/05/16 at 06:00 Insulin Detemir (Levemir) 35 unit BID SC Last administered on 12/10/16 10:00; Admin Dose 35 UNIT; Start 12/06/16 at 21:00 Miscellaneous Information Pt Diabetic. Pls ... ONCE XX ; Start 12/06/16 at 11:30 Dopamine HCl/ Sodium Chloride (NS) 250 ml @ 7.16 mls/hr TITRATE IV ; Start at 13:00 Diagnostic Test (Pha) (Accu-Chek) 1 ea 02 XX Last administered on 12/10/16 02: 30; Admin Dose 1 EA; Start 12/08/16 at 02:00 Metoprolol Tartrate (Lopressor) 25 mg BID PO Last administered on 12/09/16 21: 03; Admin Dose 25 MG; Start 12/07/16 at 21:00 Amiodarone HCl 200 mg 200 mg BID PO Last administered on 12/10/16 09:55; Admin Dose 200 MG; Start 12/08/16 at 09:30 Piperacillin Sod/ Tazobactam Sod (Zosyn 3.375gm/ 100 ml (Pmx)) 100 ml @ 200 mls /hr Q8 IVPB Last administered on 12/10/16 05:25; Admin Dose 200 MLS/HR; Start 12/08/16 at 14:00 Methylprednisolone Sodium Succinate 80 mg 80 mg Q6 IV Last administered on 12/10 11:31; Admin Dose 80 MG; Start 12/09/16 at 12:00 Vancomycin HCl 250 ml @ 125 mls/hr Q12H IVPB Last administered on 12/10/16 11 :41; Admin Dose 125 MLS/HR; Start 12/09/16 at 23:00 Propofol 100 ml @ 2.865 mls/ hr Q12H IV Last administered on 12/10/16 12:45; Admin Dose 17.19 MLS/HR; Start 12/09/16 at 12:00 Fentanyl (Sublimaze) 100 ml @ 2.5 mls/hr TITRATE IV Last administered on 00:01; Admin Dose 2.5 MLS/HR; Start 12/09/16 at 12:00 Insulin Aspart (Novolog Insulin Pen) NOVOLOG *MODERATE* ALGORI... Q4 SC Last administered on 12/10/16 09:59; Admin Dose 2 UNIT; Start 12/09/16 at 13:00 Ipratropium [place] (Atrovent Hfa) 4 puff Q4H PRN INH SHORTNESS OF BREATH; Start 12/09/16 at 17:00 Enoxaparin Sodium (Lovenox) 30 mg DAILY SC Last administered on 12/10/16 11:33 ; Admin Dose 30 MG; Start 12/10/16 at 11:00 Miscellaneous Information (*Rx Drug Level Order Reminder*) 1 ONCE ONCE XX ; Start 12/10/16 at 22:00; Stop 12/10/16 at 22:01 Potassium Chloride (Potassium Chloride Pwd/Soln) 40 meq ONCE ONCE NGT ; Start 12/10/16 at 13:30; Stop 12/10/16 at 13:31; Status Manuel Peters DO Dec 10, 2016 13:39
[2016-12-10] MEDS ORDERED: POTASSIUM CHLORIDE 20 MEQ POWDER FOR ORAL SOLN NGT ONE (14:00)
--- NOTE | 2016-12-10 14:04 | PN ---
DATE: 12/10/2016 PALLIATIVE CARE PROGRESS NOTE: Ms. Saavedra required reintubation yesterday. She is sedated at this time, on propofol. There is no plan to try and extubate her soon. Apparently, the patient's son calls the ICU twice a day. I have asked the patient's nurse, Chela, to give the son my phone number and the next time he calls, ask h im to call and see if I can set up a meeting with him. The patient is FULL CODE. Prognosis is reaso nably good, short term prognosis, for extubation. Long-term prognosis is poor secondary to the pat ient's multiple risk factors for another event or some other catastrophic event unrelated to her hea rt. Dictated By: JUAN ROACH MD, LP/NTS Conf#: [id number] DID#: [id number]
[2016-12-10] MEDS: ATORVASTATIN 80 MG TAB PO SCH (21:21)
--- NOTE | 2016-12-10 21:41 | PN ---
Date/Time of Note Date/Time of Note DATE: 12/10/16 TIME: 21:38 Assessment/Plan Lines/Catheters IV Catheter Type (from Nrs): A Line Stearns in Place (from Nrs): Yes Assessment/Plan Chief Complaint/Hosp Course IMPRESSION: 1. Coronary artery disease. 2. Status post myocardial infarction. 3. Hepatitis C, by report. 4 Hx IVDU SP CABG PNA Hemodynamically stable Abx Intubated follow Pulm recc to tele Discussed with the patient. All questions answered. Problems: Subjective 24 Hr Interval Summary Constitutional: improved Pain Control: mild Exam/Review of Systems Vital Signs Vitals Vital Signs Date Time Temp Pulse Resp B/P Pulse Ox O2 Delivery O2 Flow Rate FiO2 12/10/16 20:00 75 12/10/16 18:45 14 98/53 97 12/10/16 18:00 Mechanical Ventilator 12/10/16 17:48 60 12/10/16 16:00 97.9 12/09/16 09:03 4.5 Intake and Output 12/09/16 12/09/16 12/10/16 15:00 23:00 07:00 Intake Total 75 ml 214.5 ml 555.1 ml Output Total 805 ml 525 ml 270 ml Balance -730 ml -310.5 ml 285.1 ml Exam ENMT: mucosa pink and moist, nl external ears & nose, nl lips & teeth, nl nasal mucosa & septum Neck: non-tender, supple Respiratory: clear to auscultation, normal air movement Cardiovascular: nl pulses, regular rate and rhythm Gastrointestinal: nl liver, spleen, non-tender, soft Results Result Diagram: 12/10/1639912/10/16399 RENETTA WATSON MD Dec 10, 2016 21:41
[2016-12-11] VITALS (96 sets, daily range): BP systolic 73–129; BP diastolic 38–82; PULSE 52–122; RESP 12–24
[2016-12-11] MEDS: INSULIN ASPART [NOVOLOG] 3 ML PEN SC SCH ×6 (01:08→21:06)
[2016-12-11] MEDS: IPRATROPIUM (HFA) 12.9 GM INHALER INH SCH ×5 (01:18→21:51)
[2016-12-11] MEDS: ALBUTEROL HFA 8 GM INHALER INH SCH ×5 (01:18→21:50)
[2016-12-11] MEDS: ACCU-CHEK XX SCH (01:52)
[2016-12-11 04:29] LABS: ADD SCAN DIFF NO
[2016-12-11] MEDS: PROPOFOL 100 ML IV SCH ×4 (04:36→20:22)
[2016-12-11 04:45] LABS: BASOPHILS % 0.1 % (0.0-2.0); HEMATOCRIT 26.2 % (37.0-47.0); HEMOGLOBIN 8.5 g/dl (12.0-16.0); LYMPHOCYTES # 1.8 10^3/ul (0.8-2.9); LYMPHOCYTES % 8.6 % (15.0-51.0); MEAN CORPUSCULAR HEMOGLOBIN 29.4 pg (29.0-33.0); MEAN CORPUSCULAR HGB CONC 32.4 g/dl (32.0-37.0); MEAN CORPUSCULAR VOLUME 90.7 fl (82.0-101.0); MEAN PLATELET VOLUME 10.5 fl (7.4-10.4); MONOCYTE # 1.1 10^3/ul (0.3-0.9); MONOCYTES % 5.3 % (0.0-11.0); NEUTROPHIL # 17.4 10^3/ul (1.6-7.5); NEUTROPHILS % 81.2 % (39.0-77.0); NUCLEATED RED BLOOD CELLS% 0.1 /100WBC (0.0-0.0); PLATELET COUNT 386 10^3/UL (140-415); RED BLOOD COUNT 2.89 10^6/ul (4.20-5.40); WHITE BLOOD COUNT 21.4 10^3/ul (4.8-10.8)
[2016-12-11 04:54] LABS: POTASSIUM 3.9 mmol/L (3.5-5.1)
[2016-12-11 04:57] LABS: CREATININE 0.91 mg/dl (0.44-1.00)
[2016-12-11 04:58] LABS: MAGNESIUM 2.6 mg/dl (1.7-2.5)
[2016-12-11] MEDS: PIPER-TAZO 3.375 GM IV (PMX) 100 ML IVPB SCH ×3 (06:00→21:55)
[2016-12-11] MEDS: PANTOPRAZOLE 40 MG INJ IV SCH (06:00)
[2016-12-11] MEDS: FUROSEMIDE 20 MG INJ IV SCH (06:00)
[2016-12-11] MEDS: METHYLPREDNISOLONE 125 MG INJ IV SCH ×4 (06:00→23:52)
[2016-12-11] MEDS: FENTAnyl (DRIP) 1000 mcg/100mL 100 ML IV SCH ×2 (07:48→23:38)
[2016-12-11] MEDS: ASPIRIN 81 MG TAB PO SCH (08:16)
[2016-12-11] MEDS: DULOXETINE 20 MG CAP DR PO SCH (08:16)
[2016-12-11] MEDS: AMIODARONE 200 MG TAB PO SCH ×2 (08:20→21:09)
[2016-12-11] MEDS: INSULIN DETEMIR [LEVEMIR] 3ML CART SC SCH ×2 (08:24→21:07)
[2016-12-11] MEDS: ENOXAPARIN 30 MG/0.3 ML SYG SC SCH (08:24)
--- NOTE | 2016-12-11 08:25 | CONS ---
Date/Time of Note Date/Time of Note DATE: 12/11/16 TIME: 08:21 Assessment/Plan Assessment/Plan Additional Assessment/Plan Ventilator setting; are AC of 14, tidal volume 550, PEEP of 5, 60% FiO2. Chest x-ray from today is pending. Assessment recommendations; 1. Patient admitted with acute MT requiring CABG surgery. 2. Developed respiratory failure postop due to severe COPD exacerbation. 3. Left lower lobe pneumonia. 4. History of hypertension. Obtain a blood gas on current ventilator settings. Continue current antibiotics. Other supportive measures. Once x-ray of the chest and ABGs are obtained I will review them and make further recommendations regarding weaning from ventilator. Consultation Date/Type/Reason Admit Date/Time Dec 02, 2016 at 17:14 Initial Consult Date 12/05/16 Type of Consultation: Pulmonary/critical care 24 HR Interval Summary Free Text/Dictation Patient condition remains critical. Still requiring full ventilator support at fairly high FiO2. Also requiring sedation with combination fentanyl and propofol drips. Patient however has remained hemodynamically stable. General exam; elderly lady, orally intubated, sedated currently in no distress. Exam/Review of Systems Vital Signs Vitals Vital Signs Date Time Temp Pulse Resp B/P Pulse Ox O2 Delivery O2 Flow Rate FiO2 12/11/16 07:00 59 14 97/51 95 Mechanical Ventilator 12/11/16 05:47 60 12/11/16 04:30 99.4 12/09/16 09:03 4.5 Intake and Output 12/10/16 12/10/16 12/11/16 15:00 23:00 07:00 Intake Total 841.79 ml 758.38 ml 895.5 ml Output Total 380 ml 270 ml 280 ml Balance 461.79 ml 488.38 ml 615.5 ml Exam HEENT exam is; supple neck, or intubated. Pupils are small bilaterally. No neck masses. No thyromegaly. No lymphadenopathy. No neck bruits. Patient has multiple carious teeth. Chest examination: Diminished breath sounds throughout. No added sound. S1-S2 audible, no murmurs. Regular rhythm. There is a dressing applied over the sternum. Abdomen examination; soft, no organomegaly. Bowel sounds audible. Extremity examination; no peripheral edema. Pulses 1+ bilaterally. There is no clubbing. REGISTERED HEALTH NURSE examination; patient is sedated. Results Result Diagram: 12/11/16 0335 12/11/16 0335 Results 24 hrs Laboratory Tests Test 12/10/16 09:56 12/10/16 13:33 12/10/16 17:18 12/10/16 21:23 Bedside Glucose 175 159 154 224 H Test 12/10/16 22:05 12/11/16 01:03 12/11/16 01:50 12/11/16 03:35 Vancomycin Level Trough 10.5 Bedside Glucose 187 189 White Blood Count 21.4 H Red Blood Count 2.89 L Hemoglobin 8.5 L Hematocrit 26.2 L Mean Corpuscular Volume 90.7 Mean Corpuscular Hemoglobin 29.4 Mean Corpuscular Hemoglobin Concent 32.4 Red Cell Distribution Width 14.0 Platelet Count 386 Mean Platelet Volume 10.5 H Neutrophils % 81.2 H Lymphocytes % 8.6 L Monocytes % 5.3 Eosinophils % 0.0 Basophils % 0.1 Nucleated Red Blood Cells % 0.1 H Neutrophils # 17.4 H Lymphocytes # 1.8 Monocytes # 1.1 H Eosinophils # 0.0 Basophils # 0.0 Nucleated Red Blood Cells # 0.0 Sodium Level 143 Potassium Level 3.9 Chloride Level 107 Carbon Dioxide Level 29 Anion Gap 11 Blood Urea Nitrogen 49 H Creatinine 0.91 Glucose Level 179 Calcium Level 8.0 L Magnesium Level 2.6 H Test 12/11/16 05:21 Bedside Glucose 186 Medications Medications Current Medications Aspirin (Aspirin) 81 mg DAILY PO Last administered on 12/10/16 09:54; Admin Dose 81 MG; Start 12/03/16 at 09:00 Al Hydrox/Mg Hydrox/Simethicone (Mag-Al Plus) 30 ml Q4H PRN PO GASTROINTESTINAL UPSET; Start 12/02/16 at 15:00 Ondansetron HCl (Zofran Inj) 4 mg Q4H PRN IV NAUSEA AND/OR VOMITING; Start at 15:00 Duloxetine HCl (Cymbalta) 20 mg DAILY PO Last administered on 12/10/16 09:54; Admin Dose 20 MG; Start 12/03/16 at 09:00 Ondansetron HCl (Zofran Tab) 4 mg Q6H PRN PO NAUSEA AND/OR VOMITING; Start at 15:00 Nitroglycerin (Nitroglycerin (Sl Tab) 0.4 Mg) 1 tab Q5M PRN SL CHEST PAIN; Start 12/02/16 at 15:00 Acetaminophen (Tylenol Tab) 650 mg Q6H PRN PO PAIN LEVEL 1-3 OR FEVER Last administered on 12/03/16 12:40; Admin Dose 650 MG; Start 12/02/16 at 15:00 Acetaminophen (Tylenol Supp) 650 mg Q6H PRN [place] PAIN LEVEL 1-3 OR FEVER Last administered on 12/05/16 03:52; Admin Dose 650 MG; Start 12/02/16 at 15:00 Docusate Sodium (Colace) 100 mg Q12H PRN PO CONSTIPATION; Start 12/02/16 at 15: 00 Miscellaneous Information 1 ea NOTE XX ; Start 12/02/16 at 18:30 Glucose (Glutose) 15 gm Q15M PRN PO DECREASED GLUCOSE; Start 12/02/16 at 18:30 Glucose (Glutose) 22.5 gm Q15M PRN PO DECREASED GLUCOSE; Start 12/02/16 at 18: 30 Dextrose (D50w Syringe) 25 ml Q15M PRN IV DECREASED GLUCOSE Last administered on 12/04/16 23:54; Admin Dose 25 ML; Start 12/02/16 at 18:30 Dextrose (D50w Syringe) 50 ml Q15M PRN IV DECREASED GLUCOSE; Start 12/02/16 at 18:30 Glucagon (Glucagen) 1 mg Q15M PRN IM DECREASED GLUCOSE; Start 12/02/16 at 18:30 Glucose (Glutose) 15 gm Q15M PRN BUCCAL DECREASED GLUCOSE; Start 12/02/16 at 18 :30 Atorvastatin Calcium 80 mg 80 mg HS PO Last administered on 12/10/16 21:21; Admin Dose 80 MG; Start 12/02/16 at 21:00 Nitroglycerin/ Dextrose (Nitroglycerin 50 Mg/D5W (Pmx)) 250 ml @ 1.5 mls/hr TITRATE IV ; Start 12/04/16 at 22:30 Pantoprazole (Protonix Iv) 40 mg DAILY@06 IV Last administered on 12/11/16 06: 00; Admin Dose 40 MG; Start 12/05/16 at 06:00 Insulin Detemir (Levemir) 35 unit BID SC Last administered on 12/10/16 21:27; Admin Dose 35 UNIT; Start 12/06/16 at 21:00 Miscellaneous Information Pt Diabetic. Pls ... ONCE XX ; Start 12/06/16 at 11:30 Dopamine HCl/ Sodium Chloride (NS) 250 ml @ 7.16 mls/hr TITRATE IV ; Start at 13:00 Diagnostic Test (Pha) (Accu-Chek) 1 ea 02 XX Last administered on 12/10/16 02: 30; Admin Dose 1 EA; Start 12/08/16 at 02:00 Metoprolol Tartrate (Lopressor) 25 mg BID PO Last administered on 12/10/16 21: 22; Admin Dose 25 MG; Start 12/07/16 at 21:00 Amiodarone HCl 200 mg 200 mg BID PO Last administered on 12/10/16 21:21; Admin Dose 200 MG; Start 12/08/16 at 09:30 Piperacillin Sod/ Tazobactam Sod (Zosyn 3.375gm/ 100 ml (Pmx)) 100 ml @ 200 mls /hr Q8 IVPB Last administered on 12/11/16 06:00; Admin Dose 200 MLS/HR; Start 12/08/16 at 14:00 Methylprednisolone Sodium Succinate 80 mg 80 mg Q6 IV Last administered on 12/11 06:00; Admin Dose 80 MG; Start 12/09/16 at 12:00 Propofol 100 ml @ 2.865 mls/ hr Q12H IV Last administered on 12/11/16 04:36; Admin Dose 20.5 MLS/HR; Start 12/09/16 at 12:00 Fentanyl (Sublimaze) 100 ml @ 2.5 mls/hr TITRATE IV Last administered on 07:48; Admin Dose 6 MLS/HR; Start 12/09/16 at 12:00 Insulin Aspart (Novolog Insulin Pen) NOVOLOG *MODERATE* ALGORI... Q4 SC Last administered on 12/11/16 05:23; Admin Dose 4 UNIT; Start 12/09/16 at 13:00 Ipratropium [place] (Atrovent Hfa) 4 puff Q4H PRN INH SHORTNESS OF BREATH; Start 12/09/16 at 17:00 Enoxaparin Sodium 30 mg 30 mg DAILY SC Last administered on 3/30/17at 11:33; Admin Dose 30 MG; Start 12/10/16 at 11:00 Vancomycin HCl/ Sodium Chloride (Vancocin/NS) 250 ml @ 83.333 mls/ hr Q12H IVPB ; Start 12/11/16 at 11:00 WILMER DUTTON Dec 11, 2016 08:25
[2016-12-11] MEDS: METOPROLOL 25 MG TAB PO SCH ×2 (09:00→21:08)
--- NOTE | 2016-12-11 10:27 | PN ---
Date/Time of Note Date/Time of Note DATE: 12/11/16 TIME: 10:21 Assessment/Plan VTE Prophylaxis VTE Prophylaxis Intervention: LMWH Lines/Catheters IV Catheter Type (from Nrs): A Line Urinary Cath still in place: Yes Reason Cath still needed: urinary retention Assessment/Plan Chief Complaint/Hosp Course ASSESSMENT AND PLAN: 1. Non-ST elevation myocardial infarction. The patient is status post left heart catheterization with a finding of multivessel coronary artery disease. Cardiothoracic surgeon consulted Postop day # 7 status post CABG, continue aspirin , Lovenox, statin and monitor blood pressure 2. Obstructive coronary artery disease as above. Cardiothoracic surgeon has been consulted. Status post CABG, continue medical management 3. Acute respiratory failure. Intubated on 12/09/2016, continue vent management, pulmonology has been consulted 4. Essential hypertension, well controlled on medical management. 4. Dyslipidemia. Continue statin. 6. Major depression. Continue Cymbalta. 7. Diabetes mellitus. Continue Levemir, insulin sliding scale, low carb diet. Continue monitor and adjust accordingly 8. Diabetic neuropathy. Continue Lyrica. 9. For deep venous thrombosis prophylaxis, continue Lovenox 10. For gastrointestinal prophylaxis, on proton pump inhibitor. We will continue to monitor patient closely. Further recommendations, management and treatment as per clinical course. Continue to monitor in ICU secondary to respiratory failure Problems: Subjective 24 Hr Interval Summary Free Text/Dictation Patient continues to be intubated and sedated Vent settin, FiO2 50% with PEEP of 5 Sedation via propofol and fentanyl Patient has been started on OG tube feeding at 30 cc/h Exam/Review of Systems Vital Signs Vitals Vital Signs Date Time Temp Pulse Resp B/P Pulse Ox O2 Delivery O2 Flow Rate FiO2 12/11/16 10:00 64 15 89/51 96 Mechanical Ventilator 12/11/16 08:00 65 12/11/16 08:00 97.9 12/09/16 09:03 4.5 Intake and Output 12/10/16 12/10/16 12/11/16 15:00 23:00 07:00 Intake Total 841.79 ml 758.38 ml 995.5 ml Output Total 380 ml 270 ml 280 ml Balance 461.79 ml 488.38 ml 715.5 ml Exam General: The patient is intubated and sedated, bilateral upper extremity restraints HEENT: Atraumatic, normocephalic. The pupils are equal and round . Neck: Supple Chest: Normal expansion of the thorax during inspiration Lungs: Clear to auscultation bilaterally Heart: Normal S1-S2, Regular rhythm and rate. Abdomen: Soft , nontender, nondistended , bowel sounds are present. Extremities: Normal to inspection, no edema no cyanosis Neurologic: Sedated Results Result Diagram: 12/11/16 0335 12/11/16 0335 Results 24 hrs Laboratory Tests Test 12/10/16 13:33 12/10/16 17:18 12/10/16 21:23 12/10/16 22:05 Bedside Glucose 159 154 224 H Vancomycin Level Trough 10.5 Test 12/11/16 01:03 12/11/16 01:50 12/11/16 03:35 12/11/16 05:21 Bedside Glucose 187 189 186 White Blood Count 21.4 H Red Blood Count 2.89 L Hemoglobin 8.5 L Hematocrit 26.2 L Mean Corpuscular Volume 90.7 Mean Corpuscular Hemoglobin 29.4 Mean Corpuscular Hemoglobin Concent 32.4 Red Cell Distribution Width 14.0 Platelet Count 386 Mean Platelet Volume 10.5 H Neutrophils % 81.2 H Lymphocytes % 8.6 L Monocytes % 5.3 Eosinophils % 0.0 Basophils % 0.1 Nucleated Red Blood Cells % 0.1 H Neutrophils # 17.4 H Lymphocytes # 1.8 Monocytes # 1.1 H Eosinophils # 0.0 Basophils # 0.0 Nucleated Red Blood Cells # 0.0 Sodium Level 143 Potassium Level 3.9 Chloride Level 107 Carbon Dioxide Level 29 Anion Gap 11 Blood Urea Nitrogen 49 H Creatinine 0.91 Glucose Level 179 Calcium Level 8.0 L Magnesium Level 2.6 H Test 12/11/16 08:15 Bedside Glucose 215 Medications Medications Current Medications Aspirin (Aspirin) 81 mg DAILY PO Last administered on 12/11/16t 08:16; Admin Dose 81 MG; Start 12/03/16 at 09:00 Al Hydrox/Mg Hydrox/Simethicone (Mag-Al Plus) 30 ml Q4H PRN PO GASTROINTESTINAL UPSET; Start 12/02/16 at 15:00 Ondansetron HCl (Zofran Inj) 4 mg Q4H PRN IV NAUSEA AND/OR VOMITING; Start at 15:00 Duloxetine HCl (Cymbalta) 20 mg DAILY PO Last administered on 12/11/16 08:16; Admin Dose 20 MG; Start 12/03/16 at 09:00 Ondansetron HCl (Zofran Tab) 4 mg Q6H PRN PO NAUSEA AND/OR VOMITING; Start at 15:00 Nitroglycerin (Nitroglycerin (Sl Tab) 0.4 Mg) 1 tab Q5M PRN SL CHEST PAIN; Start 12/02/16 at 15:00 Acetaminophen (Tylenol Tab) 650 mg Q6H PRN PO PAIN LEVEL 1-3 OR FEVER Last administered on 12/03/16 12:40; Admin Dose 650 MG; Start 12/02/16 at 15:00 Acetaminophen (Tylenol Supp) 650 mg Q6H PRN [place] PAIN LEVEL 1-3 OR FEVER Last administered on 12/05/16 03:52; Admin Dose 650 MG; Start 12/02/16 at 15:00 Docusate Sodium (Colace) 100 mg Q12H PRN PO CONSTIPATION; Start 12/02/16 at 15: 00 Miscellaneous Information 1 ea NOTE XX ; Start 12/02/16 at 18:30 Glucose (Glutose) 15 gm Q15M PRN PO DECREASED GLUCOSE; Start 12/02/16 at 18:30 Glucose (Glutose) 22.5 gm Q15M PRN PO DECREASED GLUCOSE; Start 12/02/16 at 18: 30 Dextrose (D50w Syringe) 25 ml Q15M PRN IV DECREASED GLUCOSE Last administered on 12/04/16 23:54; Admin Dose 25 ML; Start 12/02/16 at 18:30 Dextrose (D50w Syringe) 50 ml Q15M PRN IV DECREASED GLUCOSE; Start 12/02/16 at 18:30 Glucagon (Glucagen) 1 mg Q15M PRN IM DECREASED GLUCOSE; Start 12/02/16 at 18:30 Glucose (Glutose) 15 gm Q15M PRN BUCCAL DECREASED GLUCOSE; Start 12/02/16 at 18 :30 Atorvastatin Calcium 80 mg 80 mg HS PO Last administered on 12/10/16 21:21; Admin Dose 80 MG; Start 12/02/16 at 21:00 Nitroglycerin/ Dextrose (Nitroglycerin 50 Mg/D5W (Pmx)) 250 ml @ 1.5 mls/hr TITRATE IV ; Start 12/04/16 at 22:30 Pantoprazole (Protonix Iv) 40 mg DAILY@06 IV Last administered on 12/11/16 06: 00; Admin Dose 40 MG; Start 12/05/16 at 06:00 Miscellaneous Information Pt Diabetic. Pls ... ONCE XX ; Start 12/06/16 at 11:30 Dopamine HCl/ Sodium Chloride (NS) 250 ml @ 7.16 mls/hr TITRATE IV ; Start at 13:00 Diagnostic Test (Pha) (Accu-Chek) 1 ea 02 XX Last administered on 12/10/16 02: 30; Admin Dose 1 EA; Start 12/08/16 at 02:00 Metoprolol Tartrate (Lopressor) 25 mg BID PO Last administered on 12/10/16 21: 22; Admin Dose 25 MG; Start 12/07/16 at 21:00 Amiodarone HCl 200 mg 200 mg BID PO Last administered on 12/11/16 08:20; Admin Dose 200 MG; Start 12/08/16 at 09:30 Piperacillin Sod/ Tazobactam Sod (Zosyn 3.375gm/ 100 ml (Pmx)) 100 ml @ 200 mls /hr Q8 IVPB Last administered on 12/11/16 06:00; Admin Dose 200 MLS/HR; Start 12/08/16 at 14:00 Methylprednisolone Sodium Succinate 80 mg 80 mg Q6 IV Last administered on 12/11 06:00; Admin Dose 80 MG; Start 12/09/16 at 12:00 Propofol 100 ml @ 2.865 mls/ hr Q12H IV Last administered on 12/11/16 04:36; Admin Dose 20.5 MLS/HR; Start 12/09/16 at 12:00 Fentanyl (Sublimaze) 100 ml @ 2.5 mls/hr TITRATE IV Last administered on 07:48; Admin Dose 6 MLS/HR; Start 12/09/16 at 12:00 Insulin Aspart (Novolog Insulin Pen) NOVOLOG *MODERATE* ALGORI... Q4 SC Last administered on 12/11/16 08:23; Admin Dose 4 UNIT; Start 12/09/16 at 13:00 Ipratropium [place] (Atrovent Hfa) 4 puff Q4H PRN INH SHORTNESS OF BREATH; Start 12/09/16 at 17:00 Enoxaparin Sodium 30 mg 30 mg DAILY SC Last administered on 12/11/16t 08:24; Admin Dose 30 MG; Start 12/10/16 at 11:00 Vancomycin HCl/ Sodium Chloride (Vancocin/NS) 250 ml @ 83.333 mls/ hr Q12H IVPB ; Start 12/11/16 at 11:00 Insulin Detemir (Levemir) 38 unit BID SC ; Start 12/11/16 at 21:00 NAHUM BLAIR MD Dec 11, 2016 10:27
--- NOTE | 2016-12-11 10:41 | RADRPT ---
PROCEDURE: XR Chest. CLINICAL INDICATION: Pneumonia TECHNIQUE: An AP view of the chest was obtained. COMPARISON: Chest x-ray dated 12/10/2016 FINDINGS: The endotracheal tube tip is approximately 3.3 cm above the teodoro. The tip of the enteric tube ex tends below the left diaphragm. There is a right internal jugular Cordis catheter with tip in the up per SVC. Lung volumes are low. There is prominence of the interstitial markings with small bilateral pleura l effusions. There is consolidation of the left lower lobe. No pneumothorax is seen. The cardiomed iastinal silhouette is mildly enlarged . Calcifications are seen within the aortic arch. There are post cardiac surgery changes with sternotomy wires. The osseous structures demonstrate senescent mlio nges. IMPRESSION: 1. Small left pleural effusion with basilar atelectasis versus pneumonia, not significantly changed when compared to the prior examination. 2. Small right pleural effusion, also unchanged. 3. Low lung volumes. 4. Mild cardiomegaly and aortic atherosclerosis. 5. Tubes and lines, as described above. RPTAT: HH .Susan Herr MD, MD Date Time Electronically viewed and signed by .Susan Herr MD, on 12/11/2016 10:41 .G/
--- NOTE | 2016-12-11 10:43 | PN ---
DATE: 12/11/2016 PALLIATIVE CARE PROGRESS NOTE SUBJECTIVE: Ms. Saavedra remains on mechanical ventilation at this point. She is preadmission very h igh risk of having some catastrophic episode with multiple comorbid major medical issues including s moking. Plan is to continue supporting her on the vent and trying to extubate her as the days proce ed. Apparently her son calls twice a day. I have asked the nursing staff to give him my phone numb er. I will set up a meeting hopefully as early as this weekend. OBJECTIVE: VITAL SIGNS: Blood pressure 94/51, pulse is 67 and regular, respirations of 17, temperature 97.9 de grees, 95% saturated on 65% FIO2. CHEST: Inspiratory and expiratory rhonchi. CORONARY: S1, S2, without S3, S4, murmur, gallop, rub. Normal rate, normal rhythm. ABDOMEN: Active bowel sounds. LABORATORY DATA: White blood cell count of 21.4 thousand, hemoglobin 8.5, hematocrit 26.2, MCV of 9 0.7, platelet count of 386,000. Chemistries: Serum sodium 143, potassium 3.9, chloride 107, bicarb odilia 29, BUN of 49, creatinine 0.91, blood sugar 179. ASSESSMENT AND PLAN: Continue to follow. I will speak to family members this weekend. The patient is high risk of requiring continued ventilator support; however, I will confirm this with Dr. Julissa burrell and ____. Dictated By: JUAN ROACH MD, LP/[place] Conf#: [id number] DID#: [id number]
[2016-12-11 10:47] LABS: AADO2 Arterial 314.9 mmHg (7.0-24.0); Arterial Base Excess 1.9 mmol/L (-3.0-3); Arterial COHb 0.3 % (0.0-3.0); Arterial Fraction of Oxyhgb 92.3 % (93.0-99.0); Arterial HCO3 26.1 mmol/L (22.0-26.0); Arterial MetHb 0.1 % (0.0-1.5); Arterial Total Hemglobin 10.4 g/dl (12.0-18.0); MODE VENT - AC
[2016-12-11] MEDS ORDERED: FUROSEMIDE 20 MG INJ IV ONE (11:30)
--- NOTE | 2016-12-11 11:40 | PN ---
Date/Time of Note Date/Time of Note DATE: 12/11/16 TIME: 11:40 Assessment/Plan Lines/Catheters IV Catheter Type (from Nrs): A Line Stearns in Place (from Nrs): Yes Assessment/Plan Chief Complaint/Hosp Course IMPRESSION: 1. Coronary artery disease. 2. Status post myocardial infarction. 3. Hepatitis C, by report. 4 Hx IVDU SP CABG PNA Hemodynamically stable Abx Intubated follow Pulm recc to tele Discussed with the patient. All questions answered. Problems: Subjective 24 Hr Interval Summary Constitutional: improved Pain Control: mild Exam/Review of Systems Vital Signs Vitals Vital Signs Date Time Temp Pulse Resp B/P Pulse Ox O2 Delivery O2 Flow Rate FiO2 12/11/16 10:00 64 15 89/51 96 Mechanical Ventilator 12/11/16 08:00 60 12/11/16 08:00 97.9 12/09/16 09:03 4.5 Intake and Output 12/10/16 12/10/16 12/11/16 15:00 23:00 07:00 Intake Total 841.79 ml 758.38 ml 995.5 ml Output Total 380 ml 270 ml 280 ml Balance 461.79 ml 488.38 ml 715.5 ml Exam ENMT: mucosa pink and moist, nl external ears & nose, nl lips & teeth, nl nasal mucosa & septum Neck: non-tender, supple Respiratory: clear to auscultation, normal air movement Cardiovascular: nl pulses, regular rate and rhythm Results Result Diagram: 12/11/16 0335 12/11/16 0335 RENETTA WATSON MD Dec 11, 2016 11:40
--- NOTE | 2016-12-11 12:13 | CONS ---
Date/Time of Note Date/Time of Note DATE: 12/11/16 TIME: 12:11 Assessment/Plan Assessment/Plan Additional Assessment/Plan Non-ST elevation [place] Multivessel coronary artery disease status post CABG Cardiomyopathy with ejection fraction 50% Respiratory failure status post reintubation Acute decompensated systolic and diastolic congestive heart failure Paroxysmal atrial fibrillation, currently sinus Diabetes Active tobacco use -Patient requiring high dose sedation secondary to agitation and combativeness. Would attempt to give diuretics as blood pressure permits, continue aspirin and statin therapy, hold beta-zacarias secondary to borderline blood pressure and for more "blood pressure room" for diuresis. Maintain potassium above 4.0 and magnesium above 2.0. Consultation Date/Type/Reason Admit Date/Time Dec 02, 2016 at 17:14 Type of Consultation: cv 24 HR Interval Summary Free Text/Dictation Patient requires high-dose sedation secondary to tolerance. Blood pressure borderline Exam/Review of Systems Vital Signs Vitals Vital Signs Date Time Temp Pulse Resp B/P Pulse Ox O2 Delivery O2 Flow Rate FiO2 12/11/16 10:00 64 15 89/51 96 Mechanical Ventilator 12/11/16 08:00 60 12/11/16 08:00 97.9 12/09/16 09:03 4.5 Intake and Output 12/10/16 12/10/16 12/11/16 15:00 23:00 07:00 Intake Total 841.79 ml 758.38 ml 995.5 ml Output Total 380 ml 270 ml 280 ml Balance 461.79 ml 488.38 ml 715.5 ml Exam Sedated and intubated, becomes agitated at times Head: normocephalic ENMT: intubated Respiratory: other (Coarse breath sounds bilaterally, no wheezing) Cardiovascular: other (S1-S2 heard), regular rate and rhythm Gastrointestinal: bowel sounds, non-tender, other (No guarding), soft Extremities: edema, other (No cyanosis) Results Result Diagram: 12/11/16 0335 12/11/16 0335 Results 24 hrs Laboratory Tests Test 12/10/16 13:33 12/10/16 17:18 12/10/16 21:23 12/10/16 22:05 Bedside Glucose 159 154 224 H Vancomycin Level Trough 10.5 Test 12/11/16 01:03 12/11/16 01:50 12/11/16 03:35 12/11/16 05:21 Bedside Glucose 187 189 186 White Blood Count 21.4 H Red Blood Count 2.89 L Hemoglobin 8.5 L Hematocrit 26.2 L Mean Corpuscular Volume 90.7 Mean Corpuscular Hemoglobin 29.4 Mean Corpuscular Hemoglobin Concent 32.4 Red Cell Distribution Width 14.0 Platelet Count 386 Mean Platelet Volume 10.5 H Neutrophils % 81.2 H Lymphocytes % 8.6 L Monocytes % 5.3 Eosinophils % 0.0 Basophils % 0.1 Nucleated Red Blood Cells % 0.1 H Neutrophils # 17.4 H Lymphocytes # 1.8 Monocytes # 1.1 H Eosinophils # 0.0 Basophils # 0.0 Nucleated Red Blood Cells # 0.0 Sodium Level 143 Potassium Level 3.9 Chloride Level 107 Carbon Dioxide Level 29 Anion Gap 11 Blood Urea Nitrogen 49 H Creatinine 0.91 Glucose Level 179 Calcium Level 8.0 L Magnesium Level 2.6 H Test 12/11/16 08:15 12/11/16 08:21 Bedside Glucose 215 Blood Gas Specimen Source Blood arterial Arterial Blood Date Drawn 12/11/2016 8:15:00 AM Arterial Blood pH (Temp corrected) 7.441 Arterial Blood pCO2 (Temp correct) 39.2 Arterial Blood pO2 (Temp corrected) 69.8 L Arterial Blood HCO3 26.1 H Arterial Blood Base Excess 1.9 Arterial Blood Oxygen Saturation 92.7 L Amor Test N/A Arterial Blood Gas Puncture Site A-Line Arterial Blood Carboxyhemoglobin 0.3 Arterial Blood Methemoglobin 0.1 Blood Gas A-a O2 Differential 314.9 H Oxyhemoglobin Percent 92.3 L Total Hemoglobin 10.4 L Blood Gas Temperature 37.0 Blood Gas Respiration Rate 14.0 Blood Gas Actual Respiration Rate 22 Blood Gas Modality VENT - AC FiO2 60.0 Blood Gas Tidal Volume 500.0 Blood Gas Low PEEP Setting 5.0 Blood Gas Critical Value Read Back Sangeeta ANDRES RN Blood Gas Notified Whom RDIX Blood Gas Notified Time 12/11/2016 8:30:00 AM Medications Medications Current Medications Aspirin (Aspirin) 81 mg DAILY PO Last administered on 12/11/16t 08:16; Admin Dose 81 MG; Start 12/03/16 at 09:00 Al Hydrox/Mg Hydrox/Simethicone (Mag-Al Plus) 30 ml Q4H PRN PO GASTROINTESTINAL UPSET; Start 12/02/16 at 15:00 Ondansetron HCl (Zofran Inj) 4 mg Q4H PRN IV NAUSEA AND/OR VOMITING; Start at 15:00 Duloxetine HCl (Cymbalta) 20 mg DAILY PO Last administered on 12/11/16 08:16; Admin Dose 20 MG; Start 12/03/16 at 09:00 Ondansetron HCl (Zofran Tab) 4 mg Q6H PRN PO NAUSEA AND/OR VOMITING; Start at 15:00 Nitroglycerin (Nitroglycerin (Sl Tab) 0.4 Mg) 1 tab Q5M PRN SL CHEST PAIN; Start 12/02/16 at 15:00 Acetaminophen (Tylenol Tab) 650 mg Q6H PRN PO PAIN LEVEL 1-3 OR FEVER Last administered on 12/03/16 12:40; Admin Dose 650 MG; Start 12/02/16 at 15:00 Acetaminophen (Tylenol Supp) 650 mg Q6H PRN IN PAIN LEVEL 1-3 OR FEVER Last administered on 12/05/16 03:52; Admin Dose 650 MG; Start 12/02/16 at 15:00 Docusate Sodium (Colace) 100 mg Q12H PRN PO CONSTIPATION; Start 12/02/16 at 15: 00 Miscellaneous Information 1 ea NOTE XX ; Start 12/02/16 at 18:30 Glucose (Glutose) 15 gm Q15M PRN PO DECREASED GLUCOSE; Start 12/02/16 at 18:30 Glucose (Glutose) 22.5 gm Q15M PRN PO DECREASED GLUCOSE; Start 12/02/16 at 18: 30 Dextrose (D50w Syringe) 25 ml Q15M PRN IV DECREASED GLUCOSE Last administered on 12/04/16 23:54; Admin Dose 25 ML; Start 12/02/16 at 18:30 Dextrose (D50w Syringe) 50 ml Q15M PRN IV DECREASED GLUCOSE; Start 12/02/16 at 18:30 Glucagon (Glucagen) 1 mg Q15M PRN IM DECREASED GLUCOSE; Start 12/02/16 at 18:30 Glucose (Glutose) 15 gm Q15M PRN BUCCAL DECREASED GLUCOSE; Start 12/02/16 at 18 :30 Atorvastatin Calcium 80 mg 80 mg HS PO Last administered on 12/10/16 21:21; Admin Dose 80 MG; Start 12/02/16 at 21:00 Nitroglycerin/ Dextrose (Nitroglycerin 50 Mg/D5W (Pmx)) 250 ml @ 1.5 mls/hr TITRATE IV ; Start 12/04/16 at 22:30 Pantoprazole (Protonix Iv) 40 mg DAILY@06 IV Last administered on 12/11/16 06: 00; Admin Dose 40 MG; Start 12/05/16 at 06:00 Miscellaneous Information Pt Diabetic. Pls ... ONCE XX ; Start 12/06/16 at 11:30 Dopamine HCl/ Sodium Chloride (NS) 250 ml @ 7.16 mls/hr TITRATE IV ; Start at 13:00 Diagnostic Test (Pha) (Accu-Chek) 1 ea 02 XX Last administered on 12/10/16 02: 30; Admin Dose 1 EA; Start 12/08/16 at 02:00 Metoprolol Tartrate (Lopressor) 25 mg BID PO Last administered on 12/10/16 21: 22; Admin Dose 25 MG; Start 12/07/16 at 21:00 Amiodarone HCl 200 mg 200 mg BID PO Last administered on 12/11/16 08:20; Admin Dose 200 MG; Start 12/08/16 at 09:30 Piperacillin Sod/ Tazobactam Sod (Zosyn 3.375gm/ 100 ml (Pmx)) 100 ml @ 200 mls /hr Q8 IVPB Last administered on 12/11/16 06:00; Admin Dose 200 MLS/HR; Start 12/08/16 at 14:00 Methylprednisolone Sodium Succinate 80 mg 80 mg Q6 IV Last administered on 12/11 06:00; Admin Dose 80 MG; Start 12/09/16 at 12:00 Propofol 100 ml @ 2.865 mls/ hr Q12H IV Last administered on 12/11/16 10:20; Admin Dose 20.055 MLS/HR; Start 12/09/16 at 12:00 Fentanyl (Sublimaze) 100 ml @ 2.5 mls/hr TITRATE IV Last administered on 07:48; Admin Dose 6 MLS/HR; Start 12/09/16 at 12:00 Insulin Aspart (Novolog Insulin Pen) NOVOLOG *MODERATE* ALGORI... Q4 SC Last administered on 12/11/16 08:23; Admin Dose 4 UNIT; Start 12/09/16 at 13:00 Ipratropium [place] (Atrovent Hfa) 4 puff Q4H PRN INH SHORTNESS OF BREATH; Start 12/09/16 at 17:00 Enoxaparin Sodium 30 mg 30 mg DAILY SC Last administered on 12/11/16 08:24; Admin Dose 30 MG; Start 12/10/16 at 11:00 Vancomycin HCl/ Sodium Chloride (Vancocin/NS) 250 ml @ 83.333 mls/ hr Q12H IVPB ; Start 12/11/16 at 11:00 Insulin Detemir (Levemir) 38 unit BID SC ; Start 12/11/16 at 21:00 Manuel Escudero DO Dec 11, 2016 12:13
[2016-12-11] MEDS: VANCOMYCIN 1.25 GM in SOD CHLORIDE 0.9% 250 ML IVPB SCH ×2 (12:25→22:54)
[2016-12-11] MEDS: ATORVASTATIN 80 MG TAB PO SCH (21:09)
[2016-12-11] MEDS ORDERED: morphine 10 MG INJ IM PRN (22:30)
[2016-12-11] MEDS ORDERED: morphine 2 MG INJ IV PRN (22:30)
[2016-12-12] VITALS (93 sets, daily range): BP systolic 93–161; BP diastolic 47–98; PULSE 58–75; RESP 9–28
[2016-12-12] MEDS: INSULIN ASPART [NOVOLOG] 3 ML PEN SC SCH ×5 (01:00→16:35)
[2016-12-12] MEDS: ALBUTEROL HFA 8 GM INHALER INH SCH ×6 (01:16→20:54)
[2016-12-12] MEDS: IPRATROPIUM (HFA) 12.9 GM INHALER INH SCH ×6 (01:16→20:54)
[2016-12-12] MEDS: PROPOFOL 100 ML IV SCH ×6 (01:50→21:53)
[2016-12-12 04:35] LABS: ADD SCAN DIFF NO
[2016-12-12 04:40] LABS: ABNORMAL IP MESSAGE 1; BASOPHILS % 0.1 % (0.0-2.0); HEMATOCRIT 26.4 % (37.0-47.0); HEMOGLOBIN 8.7 g/dl (12.0-16.0); LYMPHOCYTES # 1.4 10^3/ul (0.8-2.9); LYMPHOCYTES % 6.9 % (15.0-51.0); MEAN CORPUSCULAR HEMOGLOBIN 29.6 pg (29.0-33.0); MEAN CORPUSCULAR VOLUME 89.8 fl (82.0-101.0); MEAN PLATELET VOLUME 10.5 fl (7.4-10.4); MONOCYTE # 1.3 10^3/ul (0.3-0.9); MONOCYTES % 6.4 % (0.0-11.0); NEUTROPHIL # 16.4 10^3/ul (1.6-7.5); NEUTROPHILS % 79.1 % (39.0-77.0); NUCLEATED RED BLOOD CELLS% 0.2 /100WBC (0.0-0.0); PLATELET COUNT 431 10^3/UL (140-415); RED BLOOD COUNT 2.94 10^6/ul (4.20-5.40); RED CELL DISTRIBUTION WIDTH 14.3 % (11.5-14.5); WHITE BLOOD COUNT 20.7 10^3/ul (4.8-10.8)
[2016-12-12 04:52] LABS: POTASSIUM 4.2 mmol/L (3.5-5.1)
[2016-12-12 04:54] LABS: CREATININE 0.99 mg/dl (0.44-1.00)
[2016-12-12 04:55] LABS: CALCIUM 7.6 mg/dl (8.4-10.2); MAGNESIUM 2.7 mg/dl (1.7-2.5)
[2016-12-12] MEDS: METHYLPREDNISOLONE 125 MG INJ IV SCH ×4 (06:12→23:53)
[2016-12-12] MEDS: PANTOPRAZOLE 40 MG INJ IV SCH (06:12)
[2016-12-12] MEDS: PIPER-TAZO 3.375 GM IV (PMX) 100 ML IVPB SCH ×3 (06:12→21:53)
[2016-12-12] MEDS: ASPIRIN 81 MG TAB PO SCH (08:46)
[2016-12-12] MEDS: DULOXETINE 20 MG CAP DR PO SCH (08:47)
[2016-12-12] MEDS: AMIODARONE 200 MG TAB PO SCH ×2 (08:47→20:59)
[2016-12-12] MEDS: METOPROLOL 25 MG TAB PO SCH ×2 (08:47→20:59)
[2016-12-12] MEDS: INSULIN DETEMIR [LEVEMIR] 3ML CART SC SCH ×2 (08:55→21:10)
[2016-12-12] MEDS: ENOXAPARIN 30 MG/0.3 ML SYG SC SCH (08:55)
[2016-12-12] MEDS ORDERED: FUROSEMIDE 20 MG INJ IV SCH (09:00)
--- NOTE | 2016-12-12 09:00 | PN ---
Date/Time of Note Date/Time of Note DATE: 12/12/16 TIME: 08:56 Assessment/Plan VTE Prophylaxis VTE Prophylaxis Intervention: LMWH Lines/Catheters IV C[facility]ter Type [facility]from [facility] A Line Urinary Cath still in place: Yes Reason Cath still needed: urinary retention Assessment/Plan Problems: (1) Status post aorto-coronary artery bypass graft Onset Date: ~ 12/04/2016 Status: Acute Comment: Postoperatively she has required reintubation. She is being supported by mechanical ventilation. At this time she is doing relatively well but is not at the point where she is ready for extubation. She is otherwise tolerating the procedure that she had had done. (2) COPD (chronic obstructive pulmonary disease) Status: Chronic Comment: She has a history of tobacco abuse which she is clearly not doing well in the hospital. This has affected her lungs which is led to a contributing feature in her respiratory failure postoperatively. Pulmonary is working with the patient. She is on Solu-Medrol and in-line breathing treatments with the ventilator. Qualifiers: COPD type: unspecified COPD Qualified Code: J44.9 - Chronic obstructive pulmonary disease, unspecified COPD type (3) Respiratory failure, post-operative Status: Acute Comment: This is multifactorial partially fluid and partially from the COPD. She will continue on treatment aggressively with hope of getting her extubated in the next 48 hours (4) Postoperative anemia due to acute blood loss Status: Acute Comment: Noted she is not at the point where she needs transfusion as of today (5) Intermittent atrial fibrillation Status: Acute Comment: Presently she is in sinus rhythm and receiving amiodarone to help control this after the open heart bypass (6) Chronic pain syndrome Status: Chronic Comment: Noted. She actually has a fentanyl patch and would be appropriate candidate for some type of antiepileptic drug therapy when she is off the ventilator (7) Diabetes mellitus type 2 in obese Status: Chronic Comment: Adequate control using regimen in spite of the high-dose steroids she is receiving (8) Hyperlipidemia associated with type 2 diabetes mellitus Status: Chronic Comment: She is on full dose statin therapy (9) Essential hypertension Status: Chronic Comment: Blood pressure is controlled at this time Subjective 24 Hr Interval Summary Free Text/Dictation Patient sedated intubated on and on propofol drip Subjective hx not possible: pt critical status Exam/Review of Systems Vital Signs Vitals Vital Signs Date Time Temp Pulse Resp B/P Pulse Ox O2 Delivery O2 Flow Rate FiO2 12/12/16 07:05 63 15 95 60 12/12/16 07:00 137/88 Mechanical Ventilator 12/12/16 04:00 98.5 12/09/16 09:03 4.5 Intake and Output 12/11/16 12/11/16 12/12/16 15:00 23:00 07:00 Intake Total 682.00 ml 1034.88 ml 763.8 ml Output Total 765 ml 280 ml 340 ml Balance -83.00 ml 754.88 ml 423.8 ml Exam Constitutional: other (Chemically sedated) Eyes: EOMI, nl conjunctiva, nl lids, nl sclera Neck: non-tender, supple Respiratory: clear to auscultation, normal air movement Cardiovascular: nl pulses, regular rate and rhythm Gastrointestinal: nl liver, spleen, non-tender, soft Results Result Diagram: 12/12/16 0400 12/12/16 0400 Results 24 hrs Laboratory Tests Test 12/11/16 13:29 12/11/16 17:47 12/11/16 21:03 12/12/16 01:52 Bedside Glucose 189 133 185 132 Test 12/12/16 04:00 12/12/16 04:45 12/12/16 08:29 White Blood Count 20.7 H Red Blood Count 2.94 L Hemoglobin 8.7 L Hematocrit 26.4 L Mean Corpuscular Volume 89.8 Mean Corpuscular Hemoglobin 29.6 Mean Corpuscular Hemoglobin Concent 33.0 Red Cell Distribution Width 14.3 Platelet Count 431 H Mean Platelet Volume 10.5 H Neutrophils % 79.1 H Lymphocytes % 6.9 L Monocytes % 6.4 Eosinophils % 0.0 Basophils % 0.1 Nucleated Red Blood Cells % 0.2 H Neutrophils # 16.4 H Lymphocytes # 1.4 Monocytes # 1.3 H Eosinophils # 0.0 Basophils # 0.0 Nucleated Red Blood Cells # 0.0 Sodium Level 141 Potassium Level 4.2 Chloride Level 107 Carbon Dioxide Level 30 Anion Gap 8 Blood Urea Nitrogen 51 H Creatinine 0.99 Glucose Level 136 # Calcium Level 7.6 L Magnesium Level 2.7 H Bedside Glucose 134 164 Medications Medications Current Medications Aspirin (Aspirin) 81 mg DAILY PO Last administered on 12/11/16t 08:16; Admin Dose 81 MG; Start 12/03/16 at 09:00 Al Hydrox/Mg Hydrox/Simethicone (Mag-Al Plus) 30 ml Q4H PRN PO GASTROINTESTINAL UPSET; Start 12/02/16 at 15:00 Ondansetron HCl (Zofran Inj) 4 mg Q4H PRN IV NAUSEA AND/OR VOMITING; Start at 15:00 Duloxetine HCl (Cymbalta) 20 mg DAILY PO Last administered on 12/11/16 08:16; Admin Dose 20 MG; Start 12/03/16 at 09:00 Ondansetron HCl (Zofran Tab) 4 mg Q6H PRN PO NAUSEA AND/OR VOMITING; Start at 15:00 Nitroglycerin (Nitroglycerin (Sl Tab) 0.4 Mg) 1 tab Q5M PRN SL CHEST PAIN; Start 12/02/16 at 15:00 Acetaminophen (Tylenol Tab) 650 mg Q6H PRN PO PAIN LEVEL 1-3 OR FEVER Last administered on 12/03/16 12:40; Admin Dose 650 MG; Start 12/02/16 at 15:00 Acetaminophen (Tylenol Supp) 650 mg Q6H PRN [place] PAIN LEVEL 1-3 OR FEVER Last administered on 12/05/16 03:52; Admin Dose 650 MG; Start 12/02/16 at 15:00 Docusate Sodium (Colace) 100 mg Q12H PRN PO CONSTIPATION; Start 12/02/16 at 15: 00 Miscellaneous Information 1 ea NOTE XX ; Start 12/02/16 at 18:30 Glucose (Glutose) 15 gm Q15M PRN PO DECREASED GLUCOSE; Start 12/02/16 at 18:30 Glucose (Glutose) 22.5 gm Q15M PRN PO DECREASED GLUCOSE; Start 12/02/16 at 18: 30 Dextrose (D50w Syringe) 25 ml Q15M PRN IV DECREASED GLUCOSE Last administered on 12/04/16 23:54; Admin Dose 25 ML; Start 12/02/16 at 18:30 Dextrose (D50w Syringe) 50 ml Q15M PRN IV DECREASED GLUCOSE; Start 12/02/16 at 18:30 Glucagon (Glucagen) 1 mg Q15M PRN IM DECREASED GLUCOSE; Start 12/02/16 at 18:30 Glucose (Glutose) 15 gm Q15M PRN BUCCAL DECREASED GLUCOSE; Start 12/02/16 at 18 :30 Atorvastatin Calcium 80 mg 80 mg HS PO Last administered on 12/11/16 21:09; Admin Dose 80 MG; Start 12/02/16 at 21:00 Nitroglycerin/ Dextrose (Nitroglycerin 50 Mg/D5W (Pmx)) 250 ml @ 1.5 mls/hr TITRATE IV ; Start 12/04/16 at 22:30 Pantoprazole (Protonix Iv) 40 mg DAILY@06 IV Last administered on 12/12/16 06: 12; Admin Dose 40 MG; Start 12/05/16 at 06:00 Miscellaneous Information Pt Diabetic. Pls ... ONCE XX ; Start 12/06/16 at 11:30 Dopamine HCl/ Sodium Chloride (NS) 250 ml @ 7.16 mls/hr TITRATE IV ; Start at 13:00 Metoprolol Tartrate (Lopressor) 25 mg BID PO Last administered on 12/11/16 21: 08; Admin Dose 25 MG; Start 12/07/16 at 21:00 Amiodarone HCl 200 mg 200 mg BID PO Last administered on 12/11/16 21:09; Admin Dose 200 MG; Start 12/08/16 at 09:30 Piperacillin Sod/ Tazobactam Sod (Zosyn 3.375gm/ 100 ml (Pmx)) 100 ml @ 200 mls /hr Q8 IVPB Last administered on 12/12/16 06:12; Admin Dose 200 MLS/HR; Start 12/08/16 at 14:00 Methylprednisolone Sodium Succinate 80 mg 80 mg Q6 IV Last administered on 06:12; Admin Dose 80 MG; Start 12/09/16 at 12:00 Propofol 100 ml @ 2.865 mls/ hr Q12H IV Last administered on 12/12/16 01:50; Admin Dose 17.6 MLS/HR; Start 12/09/16 at 12:00 Fentanyl (Sublimaze) 100 ml @ 2.5 mls/hr TITRATE IV Last administered on 23:38; Admin Dose 6 MLS/HR; Start 12/09/16 at 12:00 Insulin Aspart (Novolog Insulin Pen) NOVOLOG *MODERATE* ALGORI... Q4 SC Last administered on 12/11/16 21:06; Admin Dose 4 UNIT; Start 12/09/16 at 13:00 Ipratropium [place] (Atrovent Hfa) 4 puff Q4H PRN INH SHORTNESS OF BREATH; Start 12/09/16 at 17:00 Enoxaparin Sodium 30 mg 30 mg DAILY SC Last administered on 12/11/16 08:24; Admin Dose 30 MG; Start 12/10/16 at 11:00 Vancomycin HCl/ Sodium Chloride (Vancocin/NS) 250 ml @ 83.333 mls/ hr Q12H IVPB Last administered on 12/11/16 22:54; Admin Dose 83.333 MLS/HR; Start at 11:00 Insulin Detemir (Levemir) 38 unit BID SC Last administered on 12/11/16 21:07; Admin Dose 38 UNIT; Start 12/11/16 at 21:00 Furosemide (Lasix) 20 mg DAILY IV ; Start 12/12/16 at 09:00 Morphine Sulfate (morphine) 2 mg Q4H PRN IV PAIN LEVEL 4-6 Last administered on 12/11/16 22:58; Admin Dose 2 MG; Start 12/11/16 at 22:30 RADHA ROJO MD Dec 12, 2016 09:00
--- NOTE | 2016-12-12 09:43 | CONS ---
Date/Time of Note Date/Time of Note DATE: 12/12/16 TIME: 09:42 Assessment/Plan Assessment/Plan Chief Complaint/Hosp Course Non-ST elevation PA Multivessel coronary artery disease status post CABG Cardiomyopathy with ejection fraction 50% Respiratory failure status post reintubation Acute decompensated systolic and diastolic congestive heart failure Paroxysmal atrial fibrillation, currently sinus Diabetes Active tobacco use Problems: Additional Assessment/Plan 1) Amiodarone 2) off pressors 3) beta zacarias/ IAIN in near future Consultation Date/Type/Reason Admit Date/Time Dec 02, 2016 at 17:14 Initial Consult Date 12/05/16 Type of Consultation: cv 24 HR Interval Summary Free Text/Dictation intubated, sedated Subjective hx not possible: pt non-verbal, pt critical Exam/Review of Systems Vital Signs Vitals Vital Signs Date Time Temp Pulse Resp B/P Pulse Ox O2 Delivery O2 Flow Rate FiO2 12/12/16 09:26 60 15 96 50 12/12/16 07:00 137/88 Mechanical Ventilator 12/12/16 04:00 98.5 12/09/16 09:03 4.5 Intake and Output 12/11/16 12/11/16 12/12/16 15:00 23:00 07:00 Intake Total 682.00 ml 1034.88 ml 763.8 ml Output Total 765 ml 280 ml 340 ml Balance -83.00 ml 754.88 ml 423.8 ml Exam Head: atraumatic, normocephalic ENMT: intubated Neck: jvd Respiratory: diminished breath sounds Cardiovascular: regular rate and rhythm Gastrointestinal: soft Musculoskeletal: nl extremities to inspection Results Result Diagram: 12/12/16 0400 12/12/16 0400 Results 24 hrs Laboratory Tests Test 12/11/16 13:29 12/11/16 17:47 12/11/16 21:03 12/12/16 01:52 Bedside Glucose 189 133 185 132 Test 12/12/16 04:00 12/12/16 04:45 12/12/16 08:29 White Blood Count 20.7 H Red Blood Count 2.94 L Hemoglobin 8.7 L Hematocrit 26.4 L Mean Corpuscular Volume 89.8 Mean Corpuscular Hemoglobin 29.6 Mean Corpuscular Hemoglobin Concent 33.0 Red Cell Distribution Width 14.3 Platelet Count 431 H Mean Platelet Volume 10.5 H Neutrophils % 79.1 H Lymphocytes % 6.9 L Monocytes % 6.4 Eosinophils % 0.0 Basophils % 0.1 Nucleated Red Blood Cells % 0.2 H Neutrophils # 16.4 H Lymphocytes # 1.4 Monocytes # 1.3 H Eosinophils # 0.0 Basophils # 0.0 Nucleated Red Blood Cells # 0.0 Sodium Level 141 Potassium Level 4.2 Chloride Level 107 Carbon Dioxide Level 30 Anion Gap 8 Blood Urea Nitrogen 51 H Creatinine 0.99 Glucose Level 136 # Calcium Level 7.6 L Magnesium Level 2.7 H Bedside Glucose 134 164 Medications Medications Current Medications Aspirin (Aspirin) 81 mg DAILY PO Last administered on 12/12/16 08:46; Admin Dose 81 MG; Start 12/03/16 at 09:00 Al Hydrox/Mg Hydrox/Simethicone (Mag-Al Plus) 30 ml Q4H PRN PO GASTROINTESTINAL UPSET; Start 12/02/16 at 15:00 Ondansetron HCl (Zofran Inj) 4 mg Q4H PRN IV NAUSEA AND/OR VOMITING; Start at 15:00 Duloxetine HCl (Cymbalta) 20 mg DAILY PO Last administered on 12/12/16 08:47; Admin Dose 20 MG; Start 12/03/16 at 09:00 Ondansetron HCl (Zofran Tab) 4 mg Q6H PRN PO NAUSEA AND/OR VOMITING; Start at 15:00 Nitroglycerin (Nitroglycerin (Sl Tab) 0.4 Mg) 1 tab Q5M PRN SL CHEST PAIN; Start 12/02/16 at 15:00 Acetaminophen (Tylenol Tab) 650 mg Q6H PRN PO PAIN LEVEL 1-3 OR FEVER Last administered on 12/03/16 12:40; Admin Dose 650 MG; Start 12/02/16 at 15:00 Acetaminophen (Tylenol Supp) 650 mg Q6H PRN [place] PAIN LEVEL 1-3 OR FEVER Last administered on 12/05/16 03:52; Admin Dose 650 MG; Start 12/02/16 at 15:00 Docusate Sodium (Colace) 100 mg Q12H PRN PO CONSTIPATION; Start 12/02/16 at 15: 00 Miscellaneous Information 1 ea NOTE XX ; Start 12/02/16 at 18:30 Glucose (Glutose) 15 gm Q15M PRN PO DECREASED GLUCOSE; Start 12/02/16 at 18:30 Glucose (Glutose) 22.5 gm Q15M PRN PO DECREASED GLUCOSE; Start 12/02/16 at 18: 30 Dextrose (D50w Syringe) 25 ml Q15M PRN IV DECREASED GLUCOSE Last administered on 12/04/16 23:54; Admin Dose 25 ML; Start 12/02/16 at 18:30 Dextrose (D50w Syringe) 50 ml Q15M PRN IV DECREASED GLUCOSE; Start 12/02/16 at 18:30 Glucagon (Glucagen) 1 mg Q15M PRN IM DECREASED GLUCOSE; Start 12/02/16 at 18:30 Glucose (Glutose) 15 gm Q15M PRN BUCCAL DECREASED GLUCOSE; Start 12/02/16 at 18 :30 Atorvastatin Calcium 80 mg 80 mg HS PO Last administered on 12/11/16 21:09; Admin Dose 80 MG; Start 12/02/16 at 21:00 Nitroglycerin/ Dextrose (Nitroglycerin 50 Mg/D5W (Pmx)) 250 ml @ 1.5 mls/hr TITRATE IV ; Start 12/04/16 at 22:30 Pantoprazole (Protonix Iv) 40 mg DAILY@06 IV Last administered on 12/12/16 06: 12; Admin Dose 40 MG; Start 12/05/16 at 06:00 Miscellaneous Information Pt Diabetic. Pls ... ONCE XX ; Start 12/06/16 at 11:30 Dopamine HCl/ Sodium Chloride (NS) 250 ml @ 7.16 mls/hr TITRATE IV ; Start at 13:00 Metoprolol Tartrate (Lopressor) 25 mg BID PO Last administered on 12/12/16 08: 47; Admin Dose 25 MG; Start 12/07/16 at 21:00 Amiodarone HCl 200 mg 200 mg BID PO Last administered on 12/12/16 08:47; Admin Dose 200 MG; Start 12/08/16 at 09:30 Piperacillin Sod/ Tazobactam Sod (Zosyn 3.375gm/ 100 ml (Pmx)) 100 ml @ 200 mls /hr Q8 IVPB Last administered on 12/12/16 06:12; Admin Dose 200 MLS/HR; Start 12/08/16 at 14:00 Methylprednisolone Sodium Succinate 80 mg 80 mg Q6 IV Last administered on 06:12; Admin Dose 80 MG; Start 12/09/16 at 12:00 Propofol 100 ml @ 2.865 mls/ hr Q12H IV Last administered on 12/12/16 01:50; Admin Dose 17.6 MLS/HR; Start 12/09/16 at 12:00 Fentanyl (Sublimaze) 100 ml @ 2.5 mls/hr TITRATE IV Last administered on 23:38; Admin Dose 6 MLS/HR; Start 12/09/16 at 12:00 Insulin Aspart (Novolog Insulin Pen) NOVOLOG *MODERATE* ALGORI... Q4 SC Last administered on 12/12/16 08:56; Admin Dose 2 UNIT; Start 12/09/16 at 13:00 Ipratropium [place] (Atrovent Hfa) 4 puff Q4H PRN INH SHORTNESS OF BREATH; Start 12/09/16 at 17:00 Enoxaparin Sodium 30 mg 30 mg DAILY SC Last administered on 12/12/16 08:55; Admin Dose 30 MG; Start 12/10/16 at 11:00 Vancomycin HCl/ Sodium Chloride (Vancocin/NS) 250 ml @ 83.333 mls/ hr Q12H IVPB Last administered on 12/11/16 22:54; Admin Dose 83.333 MLS/HR; Start at 11:00 Insulin Detemir (Levemir) 38 unit BID SC Last administered on 12/12/16 08:55; Admin Dose 38 UNIT; Start 12/11/16 at 21:00 Furosemide (Lasix) 20 mg DAILY IV Last administered on 12/12/16 08:46; Admin Dose 20 MG; Start 12/12/16 at 09:00 Morphine Sulfate (morphine) 2 mg Q4H PRN IV PAIN LEVEL 4-6 Last administered on 12/11/16 22:58; Admin Dose 2 MG; Start 12/11/16 at 22:30 LUCY WEIR MD Dec 12, 2016 09:43
[2016-12-12] MEDS: VANCOMYCIN 1.25 GM in SOD CHLORIDE 0.9% 250 ML IVPB SCH (10:30)
--- NOTE | 2016-12-12 13:21 | CONS ---
Date/Time of Note Date/Time of Note DATE: 12/12/16 TIME: 13:18 Consult Date/Type/Reason Admit Date/Time Dec 02, 2016 at 17:14 Initial Consult Date 12/05/16 Type of Consultation: Pulm Subjective Sedated [facility]. Objective Vital Signs Date Time Temp Pulse Resp B/P Pulse Ox O2 Delivery O2 Flow Rate FiO2 12/12/16 12:59 62 18 93 12/12/16 11:29 60 12/12/16 11:00 101/54 Mechanical Ventilator 12/12/16 08:00 98.2 12/09/16 09:03 4.5 Intake and Output 12/11/16 12/11/16 12/12/16 15:00 23:00 07:00 Intake Total 682.00 ml 1034.88 ml 763.8 ml Output Total 765 ml 280 ml 340 ml Balance -83.00 ml 754.88 ml 423.8 ml Exam HEENT: Neck supple; no JVD; no LAD CVS: RRR, S1 and S2 CHEST: Decreased BS L > R ABD: Soft, NT, + BS EXT: No c/c + edema Results/Medications Result Diagram: 12/12/16 0400 12/12/16 0400 Results 24 hrs Laboratory Tests Test 12/11/16 13:29 12/11/16 17:47 12/11/16 21:03 12/12/16 01:52 Bedside Glucose 189 133 185 132 Test 12/12/16 04:00 12/12/16 04:45 12/12/16 08:29 12/12/16 11:51 White Blood Count 20.7 H Red Blood Count 2.94 L Hemoglobin 8.7 L Hematocrit 26.4 L Mean Corpuscular Volume 89.8 Mean Corpuscular Hemoglobin 29.6 Mean Corpuscular Hemoglobin Concent 33.0 Red Cell Distribution Width 14.3 Platelet Count 431 H Mean Platelet Volume 10.5 H Neutrophils % 79.1 H Lymphocytes % 6.9 L Monocytes % 6.4 Eosinophils % 0.0 Basophils % 0.1 Nucleated Red Blood Cells % 0.2 H Neutrophils # 16.4 H Lymphocytes # 1.4 Monocytes # 1.3 H Eosinophils # 0.0 Basophils # 0.0 Nucleated Red Blood Cells # 0.0 Sodium Level 141 Potassium Level 4.2 Chloride Level 107 Carbon Dioxide Level 30 Anion Gap 8 Blood Urea Nitrogen 51 H Creatinine 0.99 Glucose Level 136 # Calcium Level 7.6 L Magnesium Level 2.7 H Hepatitis B Surface Antigen NEGATIVE Hepatitis C Antibody REACTIVE H Bedside Glucose 134 164 192 Medications Current Medications Aspirin (Aspirin) 81 mg DAILY PO Last administered on 12/12/16 08:46; Admin Dose 81 MG; Start 12/03/16 at 09:00 Al Hydrox/Mg Hydrox/Simethicone (Mag-Al Plus) 30 ml Q4H PRN PO GASTROINTESTINAL UPSET; Start 12/02/16 at 15:00 Ondansetron HCl (Zofran Inj) 4 mg Q4H PRN IV NAUSEA AND/OR VOMITING; Start at 15:00 Duloxetine HCl (Cymbalta) 20 mg DAILY PO Last administered on 12/12/16 08:47; Admin Dose 20 MG; Start 12/03/16 at 09:00 Ondansetron HCl (Zofran Tab) 4 mg Q6H PRN PO NAUSEA AND/OR VOMITING; Start at 15:00 Nitroglycerin (Nitroglycerin (Sl Tab) 0.4 Mg) 1 tab Q5M PRN SL CHEST PAIN; Start 12/02/16 at 15:00 Acetaminophen (Tylenol Tab) 650 mg Q6H PRN PO PAIN LEVEL 1-3 OR FEVER Last administered on 12/03/16 12:40; Admin Dose 650 MG; Start 12/02/16 at 15:00 Acetaminophen (Tylenol Supp) 650 mg Q6H PRN [place] PAIN LEVEL 1-3 OR FEVER Last administered on 12/05/16 03:52; Admin Dose 650 MG; Start 12/02/16 at 15:00 Docusate Sodium (Colace) 100 mg Q12H PRN PO CONSTIPATION; Start 12/02/16 at 15: 00 Miscellaneous Information 1 ea NOTE XX ; Start 12/02/16 at 18:30 Glucose (Glutose) 15 gm Q15M PRN PO DECREASED GLUCOSE; Start 12/02/16 at 18:30 Glucose (Glutose) 22.5 gm Q15M PRN PO DECREASED GLUCOSE; Start 12/02/16 at 18: 30 Dextrose (D50w Syringe) 25 ml Q15M PRN IV DECREASED GLUCOSE Last administered on 12/04/16 23:54; Admin Dose 25 ML; Start 12/02/16 at 18:30 Dextrose (D50w Syringe) 50 ml Q15M PRN IV DECREASED GLUCOSE; Start 12/02/16 at 18:30 Glucagon (Glucagen) 1 mg Q15M PRN IM DECREASED GLUCOSE; Start 12/02/16 at 18:30 Glucose (Glutose) 15 gm Q15M PRN BUCCAL DECREASED GLUCOSE; Start 12/02/16 at 18 :30 Atorvastatin Calcium 80 mg 80 mg HS PO Last administered on 12/11/16 21:09; Admin Dose 80 MG; Start 12/02/16 at 21:00 Nitroglycerin/ Dextrose (Nitroglycerin 50 Mg/D5W (Pmx)) 250 ml @ 1.5 mls/hr TITRATE IV ; Start 12/04/16 at 22:30 Pantoprazole (Protonix Iv) 40 mg DAILY@06 IV Last administered on 12/12/16 06: 12; Admin Dose 40 MG; Start 12/05/16 at 06:00 Miscellaneous Information Pt Diabetic. Pls ... ONCE XX ; Start 12/06/16 at 11:30 Dopamine HCl/ Sodium Chloride (NS) 250 ml @ 7.16 mls/hr TITRATE IV ; Start at 13:00 Metoprolol Tartrate (Lopressor) 25 mg BID PO Last administered on 12/12/16 08: 47; Admin Dose 25 MG; Start 12/07/16 at 21:00 Amiodarone HCl 200 mg 200 mg BID PO Last administered on 12/12/16 08:47; Admin Dose 200 MG; Start 12/08/16 at 09:30 Piperacillin Sod/ Tazobactam Sod (Zosyn 3.375gm/ 100 ml (Pmx)) 100 ml @ 200 mls /hr Q8 IVPB Last administered on 12/12/16 13:10; Admin Dose 200 MLS/HR; Start 12/08/16 at 14:00 Methylprednisolone Sodium Succinate 80 mg 80 mg Q6 IV Last administered on 11:57; Admin Dose 80 MG; Start 12/09/16 at 12:00 Propofol 100 ml @ 2.865 mls/ hr Q12H IV Last administered on 12/12/16 11:18; Admin Dose 17.19 MLS/HR; Start 12/09/16 at 12:00 Fentanyl (Sublimaze) 100 ml @ 2.5 mls/hr TITRATE IV Last administered on 23:38; Admin Dose 6 MLS/HR; Start 12/09/16 at 12:00 Insulin Aspart (Novolog Insulin Pen) NOVOLOG *MODERATE* ALGORI... Q4 SC Last administered on 12/12/16 11:58; Admin Dose 4 UNIT; Start 12/09/16 at 13:00 Ipratropium Napoleon (Atrovent Hfa) 4 puff Q4H PRN INH SHORTNESS OF BREATH; Start 12/09/16 at 17:00 Enoxaparin Sodium 30 mg 30 mg DAILY SC Last administered on 12/12/16 08:55; Admin Dose 30 MG; Start 12/10/16 at 11:00 Vancomycin HCl/ Sodium Chloride (Vancocin/NS) 250 ml @ 83.333 mls/ hr Q12H IVPB Last administered on 12/12/16 10:30; Admin Dose 83.333 MLS/HR; Start 12/11 at 11:00 Insulin Detemir (Levemir) 38 unit BID SC Last administered on 12/12/16 08:55; Admin Dose 38 UNIT; Start 12/11/16 at 21:00 Furosemide (Lasix) 20 mg DAILY IV Last administered on 12/12/16 08:46; Admin Dose 20 MG; Start 12/12/16 at 09:00 Morphine Sulfate (morphine) 2 mg Q4H PRN IV PAIN LEVEL 4-6 Last administered on 12/11/16 22:58; Admin Dose 2 MG; Start 12/11/16 at 22:30 Assessment/Plan Additional Assessment/Plan IMP: 1. Respiratory Failure--s/p CABG, likely multifactorial and combination of volume and COPD 2. COPD exacerbation 3. Left effusion--post-CABG 4. s/p CABG 5. Anemia RECS: 1. Vent support 2. Reduce CS 3. Increase diuresis 4. BD/CPT 5. Am labs/CXR 35 min cc time BRYCE CONKLIN MD Dec 12, 2016 13:21
--- NOTE | 2016-12-12 14:50 | RADRPT ---
PROCEDURE: XR Chest. CLINICAL INDICATION: Assess ventilator patient. TECHNIQUE: Single frontal view of the chest was obtained COMPARISON: Chest x-ray 12/11/2016 08:53 a.m. FINDINGS: The soft tissues are normal. A mediastinotomy was performed. The degenerative osteophytes in the t horacic spine. There is a vascular sheath entering from right internal jugular approach with its ti p in the superior vena cava superior to the azygos vein insertion. The heart is enlarged. The card iomediastinal silhouette and hilar structures are normal. The pulmonary vasculature is equilibrated. There is a left-sided aorta. there are perihilar and basilar infiltrates which have worsened kimberley red to the prior study suspicious for worsening pulmonary edema. There are bilateral pleural effusi ons. There are to be artifacts in the upper abdomen. An NG tube is positioned distal to the GE yesenia ction. IMPRESSION: 1. The endotracheal tube is well-positioned T3-4. 2. A vascular sheath is identified entering from right internal jugular approach with its tip at th e level of 24 with no pneumothorax identified. 3. Status post median sternotomy with drainage tubes is identified in the left upper abdomen. 4. Satisfactory positioning of an NG tube. 5. Vascular sheath projecting at the level of the superior vena cava. 6. Congestive heart failure with worsening interstitial pulmonary edema and bilateral pleural effusi ons. RPTAT:AAJJ Physician Deion Date Time Electronically viewed and signed by Ra Cheney Physician on 12/12/2016 14:49 TORSTEN/
[2016-12-12] MEDS: FENTAnyl (DRIP) 1000 mcg/100mL 100 ML IV SCH (17:03)
[2016-12-12] MEDS: FUROSEMIDE 20 MG INJ IV SCH (17:05)
--- NOTE | 2016-12-12 20:50 | PN ---
Date/Time of Note Date/Time of Note DATE: 12/12/16 TIME: 20:50 Assessment/Plan Lines/Catheters IV Catheter Type (from Nrs): A Line Stearns in Place (from Nrs): Yes Assessment/Plan Chief Complaint/Hosp Course IMPRESSION: 1. Coronary artery disease. 2. Status post myocardial infarction. 3. Hepatitis C, by report. 4 Hx IVDU SP CABG PNA Hemodynamically stable Abx Intubated follow Pulm recc to tele Discussed with the patient. All questions answered. Problems: Subjective 24 Hr Interval Summary Constitutional: improved Pain Control: mild Exam/Review of Systems Vital Signs Vitals Vital Signs Date Time Temp Pulse Resp B/P Pulse Ox O2 Delivery O2 Flow Rate FiO2 12/12/16 18:45 68 20 136/62 94 Mechanical Ventilator 12/12/16 17:27 60 12/12/16 16:00 97.5 12/09/16 09:03 4.5 Intake and Output 12/11/16 12/11/16 12/12/16 15:00 23:00 07:00 Intake Total 682.00 ml 1034.88 ml 763.8 ml Output Total 765 ml 280 ml 340 ml Balance -83.00 ml 754.88 ml 423.8 ml Exam ENMT: mucosa pink and moist, nl external ears & nose, nl lips & teeth, nl nasal mucosa & septum Neck: non-tender, supple Respiratory: clear to auscultation, normal air movement Cardiovascular: nl pulses, regular rate and rhythm Results Result Diagram: 12/12/16 0400 12/12/16 0400 RENETTA WATSON MD Dec 12, 2016 20:50
[2016-12-12] MEDS: ATORVASTATIN 80 MG TAB PO SCH (20:58)
[2016-12-13] VITALS (47 sets, daily range): BP systolic 94–151; BP diastolic 45–88; PULSE 59–72; RESP 14–26
[2016-12-13] MEDS: VANCOMYCIN 1.25 GM in SOD CHLORIDE 0.9% 250 ML IVPB SCH ×2 (00:42→10:56)
[2016-12-13] MEDS: PROPOFOL 100 ML IV SCH ×7 (01:38→21:45)
[2016-12-13] MEDS: IPRATROPIUM (HFA) 12.9 GM INHALER INH SCH ×6 (01:44→21:21)
[2016-12-13] MEDS: ALBUTEROL HFA 8 GM INHALER INH SCH ×6 (01:44→21:21)
[2016-12-13 04:58] LABS: AADO2 Arterial 325.8 mmHg (7.0-24.0); Arterial Base Excess 3.9 mmol/L (-3.0-3); Arterial COHb 0.3 % (0.0-3.0); Arterial Fraction of Oxyhgb 89.6 % (93.0-99.0); Arterial HCO3 27.5 mmol/L (22.0-26.0); Arterial MetHb 0.5 % (0.0-1.5); Arterial Total Hemglobin 10.4 g/dl (12.0-18.0); MODE VENT - AC
[2016-12-13 05:23] LABS: ADD SCAN DIFF NO
[2016-12-13 05:38] LABS: ABNORMAL IP MESSAGE 1; HEMATOCRIT 26.6 % (37.0-47.0); HEMOGLOBIN 8.8 g/dl (12.0-16.0); MEAN CORPUSCULAR HEMOGLOBIN 29.8 pg (29.0-33.0); MEAN CORPUSCULAR HGB CONC 33.1 g/dl (32.0-37.0); MEAN CORPUSCULAR VOLUME 90.2 fl (82.0-101.0); MEAN PLATELET VOLUME 10.2 fl (7.4-10.4); PLATELET COUNT 437 10^3/UL (140-415); RED BLOOD COUNT 2.95 10^6/ul (4.20-5.40); RED CELL DISTRIBUTION WIDTH 14.2 % (11.5-14.5)
[2016-12-13] MEDS: FUROSEMIDE 20 MG INJ IV SCH ×3 (05:42→21:25)
[2016-12-13] MEDS: METHYLPREDNISOLONE 125 MG INJ IV SCH ×3 (05:42→18:14)
[2016-12-13] MEDS: PANTOPRAZOLE 40 MG INJ IV SCH (05:43)
[2016-12-13] MEDS: PIPER-TAZO 3.375 GM IV (PMX) 100 ML IVPB SCH ×3 (05:43→21:26)
[2016-12-13] MEDS: INSULIN ASPART [NOVOLOG] 3 ML PEN SC SCH ×4 (05:58→18:14)
[2016-12-13 05:59] LABS: POTASSIUM 3.9 mmol/L (3.5-5.1)
[2016-12-13 06:01] LABS: CREATININE 0.87 mg/dl (0.44-1.00)
[2016-12-13 06:02] LABS: CALCIUM 7.7 mg/dl (8.4-10.2)
[2016-12-13 06:04] LABS: MAGNESIUM 2.9 mg/dl (1.7-2.5); PHOSPHORUS 3.7 mg/dl (2.5-4.9)
[2016-12-13] MEDS ORDERED: FUROSEMIDE 20 MG INJ IV ONE (08:30)
[2016-12-13] MEDS: ASPIRIN 81 MG TAB PO SCH (08:35)
[2016-12-13] MEDS: METOPROLOL 25 MG TAB PO SCH ×2 (08:36→21:26)
[2016-12-13] MEDS: DULOXETINE 20 MG CAP DR PO SCH (08:36)
[2016-12-13] MEDS: AMIODARONE 200 MG TAB PO SCH ×2 (08:36→21:25)
[2016-12-13] MEDS: ENOXAPARIN 30 MG/0.3 ML SYG SC SCH (08:37)
[2016-12-13] MEDS: INSULIN DETEMIR [LEVEMIR] 3ML CART SC SCH ×2 (08:37→21:31)
--- NOTE | 2016-12-13 08:45 | PN ---
Date/Time of Note Date/Time of Note DATE: 12/13/16 TIME: 08:41 Assessment/Plan VTE Prophylaxis VTE Prophylaxis Intervention: other Lines/Catheters IV [facility]from [facility] A Line Urinary Cath still in place: Yes Reason Cath still needed: urinary retention Assessment/Plan Problems: (1) COPD (chronic obstructive pulmonary disease) Status: Chronic Comment: The patient is on corticosteroids to assist with this. I am going to add in Singulair to assist. Consider in line breathing treatments and if pulmonary feels COPD is doing better decreasing the corticosteroid dosing and frequency Qualifiers: COPD type: unspecified COPD Qualified Code: J44.9 - Chronic obstructive pulmonary disease, unspecified COPD type (2) Respiratory failure, post-operative Status: Acute Comment: Remains on ventilator were trying to diurese the excess fluid off. She does have some post surgical decrease in EF along with diastolic dysfunction. She was started beta-blockade safely using a cardioselective beta- zacarias which can now adding very low-dose IAIN inhibitor (3) Diabetes mellitus type 2 in obese Status: Chronic Comment: Good control on present regimen please note that we will have to come down his corticosteroids come down (4) Postoperative anemia due to acute blood loss Status: Acute Comment: Noted (5) Intermittent atrial fibrillation Status: Acute Comment: She is on anti-dysrhythmic since stable the beta-blockade should assist (6) Hepatitis C antibody positive in blood Status: Acute Comment: This is a new finding of the viral RNA is pending (7) Status post aorto-coronary artery bypass graft Onset Date: ~ 12/04/2016 Status: Acute Comment: Postoperative very slow recovery (8) Essential hypertension Status: Chronic Comment: On medications and normotensive Subjective 24 Hr Interval Summary Free Text/Dictation Intubated and sedated with propofol drip Subjective hx not possible: pt non-verbal, pt critical status Exam/Review of Systems Vital Signs Vitals Vital Signs Date Time Temp Pulse Resp B/P Pulse Ox O2 Delivery O2 Flow Rate FiO2 12/13/16 07:05 63 14 96 70 12/13/16 06:00 123/60 12/13/16 04:00 98.3 12/12/16 18:45 Mechanical Ventilator 12/09/16 09:03 4.5 Intake and Output 12/12/16 12/12/16 12/13/16 15:00 23:00 07:00 Intake Total 668.83 ml 503.0 ml 608.2 ml Output Total 975 ml 605 ml 600 ml Balance -306.17 ml -102.0 ml 8.2 ml Exam Constitutional: non-verbal Neck: non-tender, supple Respiratory: crackles/rales, normal air movement Cardiovascular: nl pulses, regular rate and rhythm Gastrointestinal: nl liver, spleen, non-tender, soft Results Result Diagram: 12/13/16 0500 12/13/16 0500 Results 24 hrs Laboratory Tests Test 12/12/16 11:51 12/12/16 16:34 12/12/16 23:30 12/12/16 23:57 Bedside Glucose 192 137 211 Vancomycin Level Trough 17.3 Test 12/13/16 05:00 12/13/16 05:55 12/13/16 08:21 White Blood Count 18.0 H Red Blood Count 2.95 L Hemoglobin 8.8 L Hematocrit 26.6 L Mean Corpuscular Volume 90.2 Mean Corpuscular Hemoglobin 29.8 Mean Corpuscular Hemoglobin Concent 33.1 Red Cell Distribution Width 14.2 Platelet Count 437 H Mean Platelet Volume 10.2 Blood Gas Specimen Source Blood arterial Arterial Blood Date Drawn 12/13/2016 4:46:53 AM Arterial Blood pH (Temp corrected) 7.486 H Arterial Blood pCO2 (Temp correct) 37.2 Arterial Blood pO2 (Temp corrected) 61.1 L Arterial Blood HCO3 27.5 H Arterial Blood Base Excess 3.9 H Arterial Blood Oxygen Saturation 90.3 L Amor Test N/A Arterial Blood Gas Puncture Site A-Line Arterial Blood Carboxyhemoglobin 0.3 Arterial Blood Methemoglobin 0.5 Blood Gas A-a O2 Differential 325.8 H Oxyhemoglobin Percent 89.6 L Total Hemoglobin 10.4 L Blood Gas Temperature 37.0 Blood Gas Respiration Rate 14.0 Blood Gas Actual Respiration Rate 18 Blood Gas Modality VENT - AC FiO2 60.0 Blood Gas Tidal Volume 500.0 Blood Gas Low PEEP Setting 5.0 Blood Gas Inspiratory Pressure 23.0 Blood Gas Notified Whom LW Blood Gas Notified Time 12/13/2016 4:58:11 AM Sodium Level 145 H Potassium Level 3.9 Chloride Level 106 Carbon Dioxide Level 30 Anion Gap 13 Blood Urea Nitrogen 50 H Creatinine 0.87 Glucose Level 148 Lactic Acid Level 1.7 Calcium Level 7.7 L Phosphorus Level 3.7 Magnesium Level 2.9 H Bedside Glucose 154 150 Medications Medications Current Medications Aspirin (Aspirin) 81 mg DAILY PO Last administered on 12/13/16 08:35; Admin Dose 81 MG; Start 12/03/16 at 09:00 Al Hydrox/Mg Hydrox/Simethicone (Mag-Al Plus) 30 ml Q4H PRN PO GASTROINTESTINAL UPSET; Start 12/02/16 at 15:00 Ondansetron HCl (Zofran Inj) 4 mg Q4H PRN IV NAUSEA AND/OR VOMITING; Start at 15:00 Duloxetine HCl (Cymbalta) 20 mg DAILY PO Last administered on 12/13/16 08:36; Admin Dose 20 MG; Start 12/03/16 at 09:00 Ondansetron HCl (Zofran Tab) 4 mg Q6H PRN PO NAUSEA AND/OR VOMITING; Start at 15:00 Nitroglycerin (Nitroglycerin (Sl Tab) 0.4 Mg) 1 tab Q5M PRN SL CHEST PAIN; Start 12/02/16 at 15:00 Acetaminophen (Tylenol Tab) 650 mg Q6H PRN PO PAIN LEVEL 1-3 OR FEVER Last administered on 12/03/16 12:40; Admin Dose 650 MG; Start 12/02/16 at 15:00 Acetaminophen (Tylenol Supp) 650 mg Q6H PRN [place] PAIN LEVEL 1-3 OR FEVER Last administered on 12/05/16 03:52; Admin Dose 650 MG; Start 12/02/16 at 15:00 Docusate Sodium (Colace) 100 mg Q12H PRN PO CONSTIPATION; Start 12/02/16 at 15: 00 Miscellaneous Information 1 ea NOTE XX ; Start 12/02/16 at 18:30 Glucose (Glutose) 15 gm Q15M PRN PO DECREASED GLUCOSE; Start 12/02/16 at 18:30 Glucose (Glutose) 22.5 gm Q15M PRN PO DECREASED GLUCOSE; Start 12/02/16 at 18: 30 Dextrose (D50w Syringe) 25 ml Q15M PRN IV DECREASED GLUCOSE Last administered on 12/04/16 23:54; Admin Dose 25 ML; Start 12/02/16 at 18:30 Dextrose (D50w Syringe) 50 ml Q15M PRN IV DECREASED GLUCOSE; Start 12/02/16 at 18:30 Glucagon (Glucagen) 1 mg Q15M PRN IM DECREASED GLUCOSE; Start 12/02/16 at 18:30 Glucose (Glutose) 15 gm Q15M PRN BUCCAL DECREASED GLUCOSE; Start 12/02/16 at 18 :30 Atorvastatin Calcium 80 mg 80 mg HS PO Last administered on 12/12/16 20:58; Admin Dose 80 MG; Start 12/02/16 at 21:00 Nitroglycerin/ Dextrose (Nitroglycerin 50 Mg/D5W (Pmx)) 250 ml @ 1.5 mls/hr TITRATE IV ; Start 12/04/16 at 22:30 Pantoprazole (Protonix Iv) 40 mg DAILY@06 IV Last administered on 12/13/16 05: 43; Admin Dose 40 MG; Start 12/05/16 at 06:00 Miscellaneous Information Pt Diabetic. Pls ... ONCE XX ; Start 12/06/16 at 11:30 Dopamine HCl/ Sodium Chloride (NS) 250 ml @ 7.16 mls/hr TITRATE IV ; Start at 13:00 Metoprolol Tartrate (Lopressor) 25 mg BID PO Last administered on 12/13/16 08: 36; Admin Dose 25 MG; Start 12/07/16 at 21:00 Amiodarone HCl 200 mg 200 mg BID PO Last administered on 12/13/16 08:36; Admin Dose 200 MG; Start 12/08/16 at 09:30 Piperacillin Sod/ Tazobactam Sod (Zosyn 3.375gm/ 100 ml (Pmx)) 100 ml @ 200 mls /hr Q8 IVPB Last administered on 12/13/16 05:43; Admin Dose 200 MLS/HR; Start 12/08/16 at 14:00 Methylprednisolone Sodium Succinate 80 mg 80 mg Q6 IV Last administered on 05:42; Admin Dose 80 MG; Start 12/09/16 at 12:00 Propofol 100 ml @ 2.865 mls/ hr Q12H IV Last administered on 12/13/16 05:42; Admin Dose 28.65 MLS/HR; Start 12/09/16 at 12:00 Fentanyl (Sublimaze) 100 ml @ 2.5 mls/hr TITRATE IV Last administered on 17:03; Admin Dose 4 MLS/HR; Start 12/09/16 at 12:00 Ipratropium Harold (Atrovent Hfa) 4 puff Q4H PRN INH SHORTNESS OF BREATH; Start 12/09/16 at 17:00 Enoxaparin Sodium 30 mg 30 mg DAILY SC Last administered on 12/13/16 08:37; Admin Dose 30 MG; Start 12/10/16 at 11:00 Vancomycin HCl/ Sodium Chloride (Vancocin/NS) 250 ml @ 83.333 mls/ hr Q12H IVPB Last administered on 12/13/16 00:42; Admin Dose 83.333 MLS/HR; Start 12/11 at 11:00 Insulin Detemir (Levemir) 38 unit BID SC Last administered on 12/13/16 08:37; Admin Dose 38 UNIT; Start 12/11/16 at 21:00 Morphine Sulfate (morphine) 2 mg Q4H PRN IV PAIN LEVEL 4-6 Last administered on 12/11/16 22:58; Admin Dose 2 MG; Start 12/11/16 at 22:30 Furosemide (Lasix) 20 mg BID@06,18 IV Last administered on 12/13/16 05:42; Admin Dose 20 MG; Start 12/12/16 at 18:00 Insulin Aspart (Novolog Insulin Pen) NOVOLOG *MODERATE* ALGORI... Q6 SC Last administered on 12/13/16 05:58; Admin Dose 2 UNIT; Start 12/13/16 at 00:00 Montelukast Sodium (Singulair) 10 mg HS NGT ; Start 12/13/16 at 21:00; Status UNV Lisinopril (Zestril) 2.5 mg DAILY NGT ; Start 12/13/16 at 09:00; Status UNV Furosemide (Lasix) 20 mg ONCE ONCE IV ; Start 12/13/16 at 08:30; Stop 12/13/16 at 08:31; Status UNV RADHA ROJO MD Dec 13, 2016 08:44
[2016-12-13] MEDS: LISINOPRIL 5 MG TAB NGT SCH (09:21)
[2016-12-13 10:10] LABS: LYMPHOCYTES # 1.1 10^3/ul (0.8-2.9); MONOCYTE # 1.4 10^3/ul (0.3-0.9); NEUTROPHIL # 14.4 10^3/ul (1.6-7.5)
--- NOTE | 2016-12-13 11:00 | PN ---
Date/Time of Note Date/Time of Note DATE: 12/13/16 TIME: 11:00 Assessment/Plan Lines/Catheters IV Catheter Type (from Nrs): A Line Stearns in Place (from Nrs): Yes Assessment/Plan Chief Complaint/Hosp Course IMPRESSION: 1. Coronary artery disease. 2. Status post myocardial infarction. 3. Hepatitis C, by report. 4 Hx IVDU SP CABG PNA Hemodynamically stable Abx Intubated follow Pulm recc to tele Discussed with the patient. All questions answered. Problems: Subjective 24 Hr Interval Summary Constitutional: improved Pain Control: mild Exam/Review of Systems Vital Signs Vitals Vital Signs Date Time Temp Pulse Resp B/P Pulse Ox O2 Delivery O2 Flow Rate FiO2 12/13/16 10:00 65 17 125/61 96 Mechanical Ventilator 12/13/16 09:16 65 12/13/16 08:00 98.6 12/09/16 09:03 4.5 Intake and Output 12/12/16 12/12/16 12/13/16 15:00 23:00 07:00 Intake Total 668.83 ml 503.0 ml 638.2 ml Output Total 975 ml 605 ml 790 ml Balance -306.17 ml -102.0 ml -151.8 ml Exam Neck: non-tender, supple Respiratory: clear to auscultation, normal air movement Cardiovascular: nl pulses, regular rate and rhythm Gastrointestinal: nl liver, spleen, non-tender, soft Results Result Diagram: 12/13/16 0500 12/13/16 0500 RENETTA WATSON MD Dec 13, 2016 11:00
--- NOTE | 2016-12-13 12:46 | CONS ---
Date/Time of Note Date/Time of Note DATE: 12/13/16 TIME: 12:45 Consult Date/Type/Reason Admit Date/Time Dec 02, 2016 at 17:14 Initial Consult Date 12/05/16 Type of Consultation: Pulm/CCM Subjective Diuresing better with increased lasix dosing. Sedated on vent. Objective Vital Signs Date Time Temp Pulse Resp B/P Pulse Ox O2 Delivery O2 Flow Rate FiO2 12/13/16 12:00 65 12/13/16 11:05 19 95 60 12/13/16 11:00 113/56 Mechanical Ventilator 12/13/16 08:00 98.6 12/09/16 09:03 4.5 Intake and Output 12/12/16 12/12/16 12/13/16 15:00 23:00 07:00 Intake Total 668.83 ml 503.0 ml 638.2 ml Output Total 975 ml 605 ml 790 ml Balance -306.17 ml -102.0 ml -151.8 ml Exam HEENT: Neck supple; no JVD; no LAD; ET tube in place CVS: RRR, S1 and S2 CHEST: Decreased BS L > R ABD: Soft, NT, + BS EXT: No c/c + edema Results/Medications Result Diagram: 12/13/16 0500 12/13/16 0500 Results 24 hrs Laboratory Tests Test 12/12/16 16:34 12/12/16 23:30 12/12/16 23:57 12/13/16 05:00 Bedside Glucose 137 211 Vancomycin Level Trough 17.3 White Blood Count 18.0 H Red Blood Count 2.95 L Hemoglobin 8.8 L Hematocrit 26.6 L Mean Corpuscular Volume 90.2 Mean Corpuscular Hemoglobin 29.8 Mean Corpuscular Hemoglobin Concent 33.1 Red Cell Distribution Width 14.2 Platelet Count 437 H Mean Platelet Volume 10.2 Neutrophils % 80.0 H Band Neutrophils % 6.0 H Lymphocytes % 6.0 L Monocytes % 8.0 Neutrophils # 14.4 H Lymphocytes # 1.1 Monocytes # 1.4 H Blood Gas Specimen Source Blood arterial Arterial Blood Date Drawn 12/13/2016 4:46:53 AM Arterial Blood pH (Temp corrected) 7.486 H Arterial Blood pCO2 (Temp correct) 37.2 Arterial Blood pO2 (Temp corrected) 61.1 L Arterial Blood HCO3 27.5 H Arterial Blood Base Excess 3.9 H Arterial Blood Oxygen Saturation 90.3 L Amor Test N/A Arterial Blood Gas Puncture Site A-Line Arterial Blood Carboxyhemoglobin 0.3 Arterial Blood Methemoglobin 0.5 Blood Gas A-a O2 Differential 325.8 H Oxyhemoglobin Percent 89.6 L Total Hemoglobin 10.4 L Blood Gas Temperature 37.0 Blood Gas Respiration Rate 14.0 Blood Gas Actual Respiration Rate 18 Blood Gas Modality VENT - AC FiO2 60.0 Blood Gas Tidal Volume 500.0 Blood Gas Low PEEP Setting 5.0 Blood Gas Inspiratory Pressure 23.0 Blood Gas Notified Whom LW Blood Gas Notified Time 12/13/2016 4:58:11 AM Sodium Level 145 H Potassium Level 3.9 Chloride Level 106 Carbon Dioxide Level 30 Anion Gap 13 Blood Urea Nitrogen 50 H Creatinine 0.87 Glucose Level 148 Lactic Acid Level 1.7 Calcium Level 7.7 L Phosphorus Level 3.7 Magnesium Level 2.9 H Test 12/13/16 05:55 12/13/16 08:21 12/13/16 12:05 Bedside Glucose 154 150 219 Medications Current Medications Aspirin (Aspirin) 81 mg DAILY PO Last administered on 12/13/16 08:35; Admin Dose 81 MG; Start 12/03/16 at 09:00 Al Hydrox/Mg Hydrox/Simethicone (Mag-Al Plus) 30 ml Q4H PRN PO GASTROINTESTINAL UPSET; Start 12/02/16 at 15:00 Ondansetron HCl (Zofran Inj) 4 mg Q4H PRN IV NAUSEA AND/OR VOMITING; Start at 15:00 Duloxetine HCl (Cymbalta) 20 mg DAILY PO Last administered on 12/13/16 08:36; Admin Dose 20 MG; Start 12/03/16 at 09:00 Ondansetron HCl (Zofran Tab) 4 mg Q6H PRN PO NAUSEA AND/OR VOMITING; Start at 15:00 Nitroglycerin (Nitroglycerin (Sl Tab) 0.4 Mg) 1 tab Q5M PRN SL CHEST PAIN; Start 12/02/16 at 15:00 Acetaminophen (Tylenol Tab) 650 mg Q6H PRN PO PAIN LEVEL 1-3 OR FEVER Last administered on 12/03/16 12:40; Admin Dose 650 MG; Start 12/02/16 at 15:00 Acetaminophen (Tylenol Supp) 650 mg Q6H PRN [place] PAIN LEVEL 1-3 OR FEVER Last administered on 12/05/16 03:52; Admin Dose 650 MG; Start 12/02/16 at 15:00 Docusate Sodium (Colace) 100 mg Q12H PRN PO CONSTIPATION; Start 12/02/16 at 15: 00 Miscellaneous Information 1 ea NOTE XX ; Start 12/02/16 at 18:30 Glucose (Glutose) 15 gm Q15M PRN PO DECREASED GLUCOSE; Start 12/02/16 at 18:30 Glucose (Glutose) 22.5 gm Q15M PRN PO DECREASED GLUCOSE; Start 12/02/16 at 18: 30 Dextrose (D50w Syringe) 25 ml Q15M PRN IV DECREASED GLUCOSE Last administered on 12/04/16 23:54; Admin Dose 25 ML; Start 12/02/16 at 18:30 Dextrose (D50w Syringe) 50 ml Q15M PRN IV DECREASED GLUCOSE; Start 12/02/16 at 18:30 Glucagon (Glucagen) 1 mg Q15M PRN IM DECREASED GLUCOSE; Start 12/02/16 at 18:30 Glucose (Glutose) 15 gm Q15M PRN BUCCAL DECREASED GLUCOSE; Start 12/02/16 at 18 :30 Atorvastatin Calcium 80 mg 80 mg HS PO Last administered on 12/12/16 20:58; Admin Dose 80 MG; Start 12/02/16 at 21:00 Nitroglycerin/ Dextrose (Nitroglycerin 50 Mg/D5W (Pmx)) 250 ml @ 1.5 mls/hr TITRATE IV ; Start 12/04/16 at 22:30 Pantoprazole (Protonix Iv) 40 mg DAILY@06 IV Last administered on 12/13/16 05: 43; Admin Dose 40 MG; Start 12/05/16 at 06:00 Miscellaneous Information Pt Diabetic. Pls ... ONCE XX ; Start 12/06/16 at 11:30 Dopamine HCl/ Sodium Chloride (NS) 250 ml @ 7.16 mls/hr TITRATE IV ; Start at 13:00 Metoprolol Tartrate (Lopressor) 25 mg BID PO Last administered on 12/13/16 08: 36; Admin Dose 25 MG; Start 12/07/16 at 21:00 Amiodarone HCl 200 mg 200 mg BID PO Last administered on 12/13/16 08:36; Admin Dose 200 MG; Start 12/08/16 at 09:30 Piperacillin Sod/ Tazobactam Sod (Zosyn 3.375gm/ 100 ml (Pmx)) 100 ml @ 200 mls /hr Q8 IVPB Last administered on 12/13/16 05:43; Admin Dose 200 MLS/HR; Start 12/08/16 at 14:00 Methylprednisolone Sodium Succinate 80 mg 80 mg Q6 IV Last administered on 12:21; Admin Dose 80 MG; Start 12/09/16 at 12:00 Propofol 100 ml @ 2.865 mls/ hr Q12H IV Last administered on 12/13/16 11:30; Admin Dose 28.65 MLS/HR; Start 12/09/16 at 12:00 Fentanyl (Sublimaze) 100 ml @ 2.5 mls/hr TITRATE IV Last administered on 17:03; Admin Dose 4 MLS/HR; Start 12/09/16 at 12:00 Ipratropium [place] (Atrovent Hfa) 4 puff Q4H PRN INH SHORTNESS OF BREATH; Start 12/09/16 at 17:00 Enoxaparin Sodium (Lovenox) 30 mg DAILY SC Last administered on 12/13/16 08:37 ; Admin Dose 30 MG; Start 12/10/16 at 11:00 Insulin Detemir (Levemir) 38 unit BID SC Last administered on 12/13/16 08:37; Admin Dose 38 UNIT; Start 12/11/16 at 21:00 Morphine Sulfate (morphine) 2 mg Q4H PRN IV PAIN LEVEL 4-6 Last administered on 12/11/16 22:58; Admin Dose 2 MG; Start 12/11/16 at 22:30 Furosemide (Lasix) 20 mg BID@06,18 IV Last administered on 12/13/16 05:42; Admin Dose 20 MG; Start 12/12/16 at 18:00 Insulin Aspart (Novolog Insulin Pen) NOVOLOG *MODERATE* ALGORI... Q6 SC Last administered on 12/13/16 12:10; Admin Dose 4 UNIT; Start 12/13/16 at 00:00 Montelukast Sodium (Singulair) 10 mg HS NGT ; Start 12/13/16 at 21:00 Lisinopril 2.5 mg 2.5 mg DAILY NGT Last administered on 12/13/16t 09:21; Admin Dose 2.5 MG; Start 12/13/16 at 09:00 Vancomycin HCl (Vancocin) 250 ml @ 125 mls/hr Q12H IVPB ; Start 12/14/16 at 00: 00 Assessment/Plan Additional Assessment/Plan IMP: 1. Respiratory Failure--s/p CABG, likely multifactorial and combination of volume and COPD 2. COPD exacerbation 3. Left effusion--post-CABG 4. s/p CABG 5. Anemia RECS: 1. Vent support--> increase PEEP 8. 2. Reduce CS 3. Increase diuresis--to negative 1-2 L/day 4. BD/CPT 5. Am labs/CXR 35 min cc time BRYCE CONKLIN MD Dec 13, 2016 12:46
--- NOTE | 2016-12-13 13:37 | CONS ---
Date/Time of Note Date/Time of Note DATE: 12/13/16 TIME: 13:36 Assessment/Plan Assessment/Plan Additional Assessment/Plan Non-ST elevation NM Multivessel coronary artery disease status post CABG Cardiomyopathy with ejection fraction 50% Respiratory failure status post reintubation Acute decompensated systolic and diastolic congestive heart failure Paroxysmal atrial fibrillation, currently sinus Diabetes Active tobacco use -Diuretics have been uptitrated secondary to worsening pulmonary vascular congestion on chest x-ray. Continue as blood pressure and renal function tolerates. Maintain potassium above 4.0 and magnesium above 2.0. Continue IAIN inhibitor as renal function and blood pressure tolerates. Continue aspirin and statin therapy. Consultation Date/Type/Reason Admit Date/Time Dec 02, 2016 at 17:14 Type of Consultation: cv 24 HR Interval Summary Free Text/Dictation Patient seen and examined, remains on sedation Exam/Review of Systems Vital Signs Vitals Vital Signs Date Time Temp Pulse Resp B/P Pulse Ox O2 Delivery O2 Flow Rate FiO2 12/13/16 13:03 63 16 96 55 12/13/16 11:00 113/56 Mechanical Ventilator 12/13/16 08:00 98.6 12/09/16 09:03 4.5 Intake and Output 12/12/16 12/12/16 12/13/16 15:00 23:00 07:00 Intake Total 668.83 ml 503.0 ml 638.2 ml Output Total 975 ml 605 ml 790 ml Balance -306.17 ml -102.0 ml -151.8 ml Exam Sedated and intubated, no apparent distress Head: normocephalic ENMT: intubated Respiratory: other (Coarse breath sounds bilaterally, no wheezing) Cardiovascular: other (S1-S2 heard), regular rate and rhythm Gastrointestinal: bowel sounds, non-tender, other (No grimacing with palpation) , soft Extremities: edema, other (No cyanosis) Results Result Diagram: 12/13/16 0500 12/13/16 0500 Results 24 hrs Laboratory Tests Test 12/12/16 16:34 12/12/16 23:30 12/12/16 23:57 12/13/16 05:00 Bedside Glucose 137 211 Vancomycin Level Trough 17.3 White Blood Count 18.0 H Red Blood Count 2.95 L Hemoglobin 8.8 L Hematocrit 26.6 L Mean Corpuscular Volume 90.2 Mean Corpuscular Hemoglobin 29.8 Mean Corpuscular Hemoglobin Concent 33.1 Red Cell Distribution Width 14.2 Platelet Count 437 H Mean Platelet Volume 10.2 Neutrophils % 80.0 H Band Neutrophils % 6.0 H Lymphocytes % 6.0 L Monocytes % 8.0 Neutrophils # 14.4 H Lymphocytes # 1.1 Monocytes # 1.4 H Blood Gas Specimen Source Blood arterial Arterial Blood Date Drawn 12/13/2016 4:46:53 AM Arterial Blood pH (Temp corrected) 7.486 H Arterial Blood pCO2 (Temp correct) 37.2 Arterial Blood pO2 (Temp corrected) 61.1 L Arterial Blood HCO3 27.5 H Arterial Blood Base Excess 3.9 H Arterial Blood Oxygen Saturation 90.3 L Amor Test N/A Arterial Blood Gas Puncture Site A-Line Arterial Blood Carboxyhemoglobin 0.3 Arterial Blood Methemoglobin 0.5 Blood Gas A-a O2 Differential 325.8 H Oxyhemoglobin Percent 89.6 L Total Hemoglobin 10.4 L Blood Gas Temperature 37.0 Blood Gas Respiration Rate 14.0 Blood Gas Actual Respiration Rate 18 Blood Gas Modality VENT - AC FiO2 60.0 Blood Gas Tidal Volume 500.0 Blood Gas Low PEEP Setting 5.0 Blood Gas Inspiratory Pressure 23.0 Blood Gas Notified Whom LW Blood Gas Notified Time 12/13/2016 4:58:11 AM Sodium Level 145 H Potassium Level 3.9 Chloride Level 106 Carbon Dioxide Level 30 Anion Gap 13 Blood Urea Nitrogen 50 H Creatinine 0.87 Glucose Level 148 Lactic Acid Level 1.7 Calcium Level 7.7 L Phosphorus Level 3.7 Magnesium Level 2.9 H Test 12/13/16 05:55 12/13/16 08:21 12/13/16 12:05 Bedside Glucose 154 150 219 Medications Medications Current Medications Aspirin (Aspirin) 81 mg DAILY PO Last administered on 12/13/16 08:35; Admin Dose 81 MG; Start 12/03/16 at 09:00 Al Hydrox/Mg Hydrox/Simethicone (Mag-Al Plus) 30 ml Q4H PRN PO GASTROINTESTINAL UPSET; Start 12/02/16 at 15:00 Ondansetron HCl (Zofran Inj) 4 mg Q4H PRN IV NAUSEA AND/OR VOMITING; Start at 15:00 Duloxetine HCl (Cymbalta) 20 mg DAILY PO Last administered on 12/13/16 08:36; Admin Dose 20 MG; Start 12/03/16 at 09:00 Ondansetron HCl (Zofran Tab) 4 mg Q6H PRN PO NAUSEA AND/OR VOMITING; Start at 15:00 Nitroglycerin (Nitroglycerin (Sl Tab) 0.4 Mg) 1 tab Q5M PRN SL CHEST PAIN; Start 12/02/16 at 15:00 Acetaminophen (Tylenol Tab) 650 mg Q6H PRN PO PAIN LEVEL 1-3 OR FEVER Last administered on 12/03/16 12:40; Admin Dose 650 MG; Start 12/02/16 at 15:00 Acetaminophen (Tylenol Supp) 650 mg Q6H PRN [place] PAIN LEVEL 1-3 OR FEVER Last administered on 12/05/16 03:52; Admin Dose 650 MG; Start 12/02/16 at 15:00 Docusate Sodium (Colace) 100 mg Q12H PRN PO CONSTIPATION; Start 12/02/16 at 15: 00 Miscellaneous Information 1 ea NOTE XX ; Start 12/02/16 at 18:30 Glucose (Glutose) 15 gm Q15M PRN PO DECREASED GLUCOSE; Start 12/02/16 at 18:30 Glucose (Glutose) 22.5 gm Q15M PRN PO DECREASED GLUCOSE; Start 12/02/16 at 18: 30 Dextrose (D50w Syringe) 25 ml Q15M PRN IV DECREASED GLUCOSE Last administered on 12/04/16 23:54; Admin Dose 25 ML; Start 12/02/16 at 18:30 Dextrose (D50w Syringe) 50 ml Q15M PRN IV DECREASED GLUCOSE; Start 12/02/16 at 18:30 Glucagon (Glucagen) 1 mg Q15M PRN IM DECREASED GLUCOSE; Start 12/02/16 at 18:30 Glucose (Glutose) 15 gm Q15M PRN BUCCAL DECREASED GLUCOSE; Start 12/02/16 at 18 :30 Atorvastatin Calcium 80 mg 80 mg HS PO Last administered on 12/12/16 20:58; Admin Dose 80 MG; Start 12/02/16 at 21:00 Nitroglycerin/ Dextrose (Nitroglycerin 50 Mg/D5W (Pmx)) 250 ml @ 1.5 mls/hr TITRATE IV ; Start 12/04/16 at 22:30 Pantoprazole (Protonix Iv) 40 mg DAILY@06 IV Last administered on 12/13/16 05: 43; Admin Dose 40 MG; Start 12/05/16 at 06:00 Miscellaneous Information Pt Diabetic. Pls ... ONCE XX ; Start 12/06/16 at 11:30 Dopamine HCl/ Sodium Chloride (NS) 250 ml @ 7.16 mls/hr TITRATE IV ; Start at 13:00 Metoprolol Tartrate (Lopressor) 25 mg BID PO Last administered on 12/13/16 08: 36; Admin Dose 25 MG; Start 12/07/16 at 21:00 Amiodarone HCl 200 mg 200 mg BID PO Last administered on 12/13/16 08:36; Admin Dose 200 MG; Start 12/08/16 at 09:30 Piperacillin Sod/ Tazobactam Sod (Zosyn 3.375gm/ 100 ml (Pmx)) 100 ml @ 200 mls /hr Q8 IVPB Last administered on 12/13/16 05:43; Admin Dose 200 MLS/HR; Start 12/08/16 at 14:00 Methylprednisolone Sodium Succinate 80 mg 80 mg Q6 IV Last administered on 12:21; Admin Dose 80 MG; Start 12/09/16 at 12:00 Propofol 100 ml @ 2.865 mls/ hr Q12H IV Last administered on 12/13/16 11:30; Admin Dose 28.65 MLS/HR; Start 12/09/16 at 12:00 Fentanyl (Sublimaze) 100 ml @ 2.5 mls/hr TITRATE IV Last administered on 17:03; Admin Dose 4 MLS/HR; Start 12/09/16 at 12:00 Ipratropium [place] (Atrovent Hfa) 4 puff Q4H PRN INH SHORTNESS OF BREATH; Start 12/09/16 at 17:00 Enoxaparin Sodium (Lovenox) 30 mg DAILY SC Last administered on 12/13/16 08:37 ; Admin Dose 30 MG; Start 12/10/16 at 11:00 Insulin Detemir (Levemir) 38 unit BID SC Last administered on 12/13/16 08:37; Admin Dose 38 UNIT; Start 12/11/16 at 21:00 Morphine Sulfate (morphine) 2 mg Q4H PRN IV PAIN LEVEL 4-6 Last administered on 12/11/16 22:58; Admin Dose 2 MG; Start 12/11/16 at 22:30 Insulin Aspart (Novolog Insulin Pen) NOVOLOG *MODERATE* ALGORI... Q6 SC Last administered on 12/13/16 12:10; Admin Dose 4 UNIT; Start 12/13/16 at 00:00 Montelukast Sodium (Singulair) 10 mg HS NGT ; Start 12/13/16 at 21:00 Lisinopril 2.5 mg 2.5 mg DAILY NGT Last administered on 12/13/16 09:21; Admin Dose 2.5 MG; Start 12/13/16 at 09:00 Vancomycin HCl (Vancocin) 250 ml @ 125 mls/hr Q12H IVPB ; Start 12/14/16 at 00: 00 Furosemide (Lasix) 20 mg Q8 IV ; Start 12/13/16 at 14:00 Manuel Escudero DO Dec 13, 2016 13:37
[2016-12-13] MEDS: FENTAnyl (DRIP) 1000 mcg/100mL 100 ML IV SCH (18:22)
[2016-12-13] MEDS: MONTELUKAST 10 MG TAB NGT SCH (21:25)
[2016-12-13] MEDS: ATORVASTATIN 80 MG TAB PO SCH (21:25)
[2016-12-14] VITALS (68 sets, daily range): BP systolic 84–136; BP diastolic 43–86; PULSE 60–80; RESP 10–23
[2016-12-14] MEDS: INSULIN ASPART [NOVOLOG] 3 ML PEN SC SCH ×5 (00:15→23:50)
[2016-12-14] MEDS: METHYLPREDNISOLONE 125 MG INJ IV SCH ×5 (00:25→23:52)
[2016-12-14] MEDS: VANCOMYCIN 1 GM in NS 250 ML IVPB SCH ×3 (00:26→23:52)
[2016-12-14] MEDS: IPRATROPIUM (HFA) 12.9 GM INHALER INH SCH ×6 (01:15→21:06)
[2016-12-14] MEDS: ALBUTEROL HFA 8 GM INHALER INH SCH ×6 (01:15→21:06)
[2016-12-14] MEDS: PROPOFOL 100 ML IV SCH ×5 (01:34→22:32)
[2016-12-14 04:45] LABS: ADD SCAN DIFF NO
[2016-12-14 04:48] LABS: ABNORMAL IP MESSAGE 1; BASOPHILS % 0.1 % (0.0-2.0); HEMATOCRIT 28.1 % (37.0-47.0); HEMOGLOBIN 9.1 g/dl (12.0-16.0); LYMPHOCYTES # 1.3 10^3/ul (0.8-2.9); LYMPHOCYTES % 7.1 % (15.0-51.0); MEAN CORPUSCULAR HEMOGLOBIN 29.3 pg (29.0-33.0); MEAN CORPUSCULAR HGB CONC 32.4 g/dl (32.0-37.0); MEAN CORPUSCULAR VOLUME 90.4 fl (82.0-101.0); MEAN PLATELET VOLUME 10.5 fl (7.4-10.4); MONOCYTE # 1.1 10^3/ul (0.3-0.9); MONOCYTES % 5.8 % (0.0-11.0); NEUTROPHIL # 14.7 10^3/ul (1.6-7.5); NEUTROPHILS % 79.9 % (39.0-77.0); PLATELET COUNT 434 10^3/UL (140-415); RED BLOOD COUNT 3.11 10^6/ul (4.20-5.40); RED CELL DISTRIBUTION WIDTH 14.7 % (11.5-14.5); WHITE BLOOD COUNT 18.4 10^3/ul (4.8-10.8)
[2016-12-14 04:52] LABS: AADO2 Arterial 245.9 mmHg (7.0-24.0); Allen Test ACCEPTAB; Arterial Base Excess 8.7 mmol/L (-3.0-3); Arterial COHb 0.3 % (0.0-3.0); Arterial Fraction of Oxyhgb 90.4 % (93.0-99.0); Arterial HCO3 32.5 mmol/L (22.0-26.0); Arterial MetHb 0.3 % (0.0-1.5); Arterial Total Hemglobin 10.6 g/dl (12.0-18.0); MODE VENT - AC
[2016-12-14 05:14] LABS: POTASSIUM 3.5 mmol/L (3.5-5.1)
[2016-12-14 05:16] LABS: CREATININE 0.88 mg/dl (0.44-1.00)
[2016-12-14 05:17] LABS: CALCIUM 7.5 mg/dl (8.4-10.2)
[2016-12-14] MEDS: PIPER-TAZO 3.375 GM IV (PMX) 100 ML IVPB SCH ×3 (05:34→21:20)
[2016-12-14] MEDS: PANTOPRAZOLE 40 MG INJ IV SCH (05:34)
[2016-12-14] MEDS: FUROSEMIDE 20 MG INJ IV SCH ×3 (05:34→21:20)
--- NOTE | 2016-12-14 08:44 | RADRPT ---
PROCEDURE: XR Chest. CLINICAL INDICATION: Shortness of breath. TECHNIQUE: Single frontal view. COMPARISON: 12/12/2016. FINDINGS: The endotracheal tube, nasogastric tube, and right internal jugular vein sheath catheter remain in s atisfactory position. There are sternal wires and mediastinal clips. There is atelectasis at the l jennifer bases, improved. The lungs are otherwise clear. The heart is enlarged. There are small bilateral pleural effusions. There is no pneumothorax. IMPRESSION: 1. Improved appearance of the lungs. 2. No other change from 12/12/2016. RPTAT: QQ .Sly Hollis MD, MD Date Time Electronically viewed and signed by .Sly Hollis MD, MD on 12/14/2016 08:44 .R/
[2016-12-14] MEDS: ASPIRIN 81 MG TAB PO SCH (08:56)
[2016-12-14] MEDS: METOPROLOL 25 MG TAB PO SCH ×2 (08:57→20:12)
[2016-12-14] MEDS: AMIODARONE 200 MG TAB PO SCH ×2 (08:57→20:12)
[2016-12-14] MEDS: DULOXETINE 20 MG CAP DR PO SCH (08:57)
[2016-12-14] MEDS: INSULIN DETEMIR [LEVEMIR] 3ML CART SC SCH ×2 (08:59→20:24)
[2016-12-14] MEDS: ENOXAPARIN 30 MG/0.3 ML SYG SC SCH (09:00)
[2016-12-14] MEDS: LISINOPRIL 5 MG TAB NGT SCH (09:00)
--- NOTE | 2016-12-14 10:20 | PN ---
Date/Time of Note Date/Time of Note DATE: 12/14/16 TIME: 10:17 Assessment/Plan VTE Prophylaxis VTE Prophylaxis Intervention: LMWH Lines/Catheters IV Catheter Type (from [facility]): A Line Urinary Cath still in place: Yes Reason Cath still needed: other (indicate) Assessment/Plan Chief Complaint/Hosp Course ASSESSMENT AND PLAN: 1. Non-ST elevation myocardial infarction. The patient is status post left heart catheterization with a finding of multivessel coronary artery disease. Cardiothoracic surgeon consulted status post CABG, continue aspirin , Lovenox, statin and monitor blood pressure 2. Obstructive coronary artery disease as above. Cardiothoracic surgeon has been consulted. Status post CABG, continue medical management 3. Acute respiratory failure. Intubated on 12/09/2016, continue vent management, pulmonology has been consulted 4. Essential hypertension, well controlled on medical management. 4. Dyslipidemia. Continue statin. 6. Major depression. Continue Cymbalta. 7. Diabetes mellitus. Continue Levemir, insulin sliding scale, low carb diet. Continue monitor and adjust accordingly 8. Diabetic neuropathy. Continue Lyrica. 9. Leukocytosis. Likely secondary to Solu-Medrol, continue vancomycin and Zosyn, follow-up blood culture 10. For deep venous thrombosis prophylaxis, continue Lovenox 11. For gastrointestinal prophylaxis, on proton pump inhibitor. We will continue to monitor patient closely. Further recommendations, management and treatment as per clinical course. Continue to monitor in ICU secondary to respiratory failure Problems: Subjective 24 Hr Interval Summary Free Text/Dictation Patient continues to be intubated and sedated Vent settings on AC 500, FiO2 80% with a PEEP of 8 Sedation via propofol and fentanyl Upon weaning off from sedation patient becomes agitated Exam/Review of Systems Vital Signs Vitals Vital Signs Date Time Temp Pulse Resp B/P Pulse Ox O2 Delivery O2 Flow Rate FiO2 12/14/16 09:00 73 15 108/55 100 Mechanical Ventilator 12/14/16 08:00 98.4 12/14/16 08:00 80 Intake and Output 12/13/16 12/13/16 12/14/16 15:00 23:00 07:00 Intake Total 951.20 ml 600.95 ml 568.2 ml Output Total 1235 ml 630 ml 1250 ml Balance -283.80 ml -29.05 ml -681.8 ml Exam General: The patient is sedated and intubated, OG tube feeding at 30 cc/h HEENT: Atraumatic, normocephalic. The pupils are equal and round . Neck: Supple Chest: Normal expansion of the thorax during inspiration Lungs: Clear to auscultation bilaterally Heart: Normal S1-S2, Regular rhythm and rate. Abdomen: Soft , nontender, nondistended , bowel sounds are present. Extremities: Normal to inspection, no edema no cyanosis Neurologic: Sedated Results Result Diagram: 12/14/16 0400 12/14/16 0400 Results 24 hrs Laboratory Tests Test 12/13/16 12:05 12/13/16 17:52 12/14/16 00:12 12/14/16 04:00 Bedside Glucose 219 166 211 White Blood Count 18.4 H Red Blood Count 3.11 L Hemoglobin 9.1 L Hematocrit 28.1 L Mean Corpuscular Volume 90.4 Mean Corpuscular Hemoglobin 29.3 Mean Corpuscular Hemoglobin Concent 32.4 Red Cell Distribution Width 14.7 H Platelet Count 434 H Mean Platelet Volume 10.5 H Neutrophils % 79.9 H Lymphocytes % 7.1 L Monocytes % 5.8 Eosinophils % 0.0 Basophils % 0.1 Nucleated Red Blood Cells % 0.0 Neutrophils # 14.7 H Lymphocytes # 1.3 Monocytes # 1.1 H Eosinophils # 0.0 Basophils # 0.0 Nucleated Red Blood Cells # 0.0 Sodium Level 146 H Potassium Level 3.5 Chloride Level 105 Carbon Dioxide Level 30 Anion Gap 15 Blood Urea Nitrogen 46 H Creatinine 0.88 Glucose Level 193 Calcium Level 7.5 L Test 12/14/16 05:00 12/14/16 06:42 Blood Gas Specimen Source Blood arterial Arterial Blood Date Drawn 12/14/2016 4:30:48 AM Arterial Blood pH (Temp corrected) 7.510 H Arterial Blood pCO2 (Temp correct) 41.7 Arterial Blood pO2 (Temp corrected) 63.7 L Arterial Blood HCO3 32.5 H Arterial Blood Base Excess 8.7 H Arterial Blood Oxygen Saturation 90.9 L Amor Test ACCEPTAB Arterial Blood Gas Puncture Site Right Radial Arterial Blood Carboxyhemoglobin 0.3 Arterial Blood Methemoglobin 0.3 Blood Gas A-a O2 Differential 245.9 H Oxyhemoglobin Percent 90.4 L Total Hemoglobin 10.6 L Blood Gas Temperature 37.0 Blood Gas Respiration Rate 14.0 Blood Gas Actual Respiration Rate 20 Blood Gas Modality VENT - AC FiO2 50.0 Blood Gas Tidal Volume 500.0 Blood Gas Low PEEP Setting 8.0 Blood Gas Notified Whom MG Blood Gas Notified Time 12/14/2016 4:52:19 AM Bedside Glucose 198 Medications Medications Current Medications Aspirin (Aspirin) 81 mg DAILY PO Last administered on 12/14/16 08:56; Admin Dose 81 MG; Start 12/03/16 at 09:00 Al Hydrox/Mg Hydrox/Simethicone (Mag-Al Plus) 30 ml Q4H PRN PO GASTROINTESTINAL UPSET; Start 12/02/16 at 15:00 Ondansetron HCl (Zofran Inj) 4 mg Q4H PRN IV NAUSEA AND/OR VOMITING; Start at 15:00 Duloxetine HCl (Cymbalta) 20 mg DAILY PO Last administered on 12/14/16 08:57; Admin Dose 20 MG; Start 12/03/16 at 09:00 Ondansetron HCl (Zofran Tab) 4 mg Q6H PRN PO NAUSEA AND/OR VOMITING; Start at 15:00 Nitroglycerin (Nitroglycerin (Sl Tab) 0.4 Mg) 1 tab Q5M PRN SL CHEST PAIN; Start 12/02/16 at 15:00 Acetaminophen (Tylenol Tab) 650 mg Q6H PRN PO PAIN LEVEL 1-3 OR FEVER Last administered on 12/03/16 12:40; Admin Dose 650 MG; Start 12/02/16 at 15:00 Acetaminophen (Tylenol Supp) 650 mg Q6H PRN [place] PAIN LEVEL 1-3 OR FEVER Last administered on 12/05/16 03:52; Admin Dose 650 MG; Start 12/02/16 at 15:00 Docusate Sodium (Colace) 100 mg Q12H PRN PO CONSTIPATION; Start 12/02/16 at 15: 00 Miscellaneous Information 1 ea NOTE XX ; Start 12/02/16 at 18:30 Glucose (Glutose) 15 gm Q15M PRN PO DECREASED GLUCOSE; Start 12/02/16 at 18:30 Glucose (Glutose) 22.5 gm Q15M PRN PO DECREASED GLUCOSE; Start 12/02/16 at 18: 30 Dextrose (D50w Syringe) 25 ml Q15M PRN IV DECREASED GLUCOSE Last administered on 12/04/16 23:54; Admin Dose 25 ML; Start 12/02/16 at 18:30 Dextrose (D50w Syringe) 50 ml Q15M PRN IV DECREASED GLUCOSE; Start 12/02/16 at 18:30 Glucagon (Glucagen) 1 mg Q15M PRN IM DECREASED GLUCOSE; Start 12/02/16 at 18:30 Glucose (Glutose) 15 gm Q15M PRN BUCCAL DECREASED GLUCOSE; Start 12/02/16 at 18 :30 Atorvastatin Calcium 80 mg 80 mg HS PO Last administered on 12/13/16 21:25; Admin Dose 80 MG; Start 12/02/16 at 21:00 Nitroglycerin/ Dextrose (Nitroglycerin 50 Mg/D5W (Pmx)) 250 ml @ 1.5 mls/hr TITRATE IV ; Start 12/04/16 at 22:30 Pantoprazole (Protonix Iv) 40 mg DAILY@06 IV Last administered on 12/14/16 05: 34; Admin Dose 40 MG; Start 12/05/16 at 06:00 Miscellaneous Information Pt Diabetic. Pls ... ONCE XX ; Start 12/06/16 at 11:30 Dopamine HCl/ Sodium Chloride (NS) 250 ml @ 7.16 mls/hr TITRATE IV ; Start at 13:00 Metoprolol Tartrate (Lopressor) 25 mg BID PO Last administered on 12/13/16 21: 26; Admin Dose 25 MG; Start 12/07/16 at 21:00 Amiodarone HCl 200 mg 200 mg BID PO Last administered on 12/14/16 08:57; Admin Dose 200 MG; Start 12/08/16 at 09:30 Piperacillin Sod/ Tazobactam Sod (Zosyn 3.375gm/ 100 ml (Pmx)) 100 ml @ 200 mls /hr Q8 IVPB Last administered on 12/14/16 05:34; Admin Dose 200 MLS/HR; Start 12/08/16 at 14:00 Methylprednisolone Sodium Succinate 80 mg 80 mg Q6 IV Last administered on 05:34; Admin Dose 80 MG; Start 12/09/16 at 12:00 Propofol 100 ml @ 2.865 mls/ hr Q12H IV Last administered on 12/14/16 10:03; Admin Dose 22.92 MLS/HR; Start 12/09/16 at 12:00 Fentanyl (Sublimaze) 100 ml @ 2.5 mls/hr TITRATE IV Last administered on 18:22; Admin Dose 4 MLS/HR; Start 12/09/16 at 12:00 Ipratropium [place] (Atrovent Hfa) 4 puff Q4H PRN INH SHORTNESS OF BREATH; Start 12/09/16 at 17:00 Enoxaparin Sodium (Lovenox) 30 mg DAILY SC Last administered on 12/14/16 09:00 ; Admin Dose 30 MG; Start 12/10/16 at 11:00 Insulin Detemir (Levemir) 38 unit BID SC Last administered on 12/14/16 08:59; Admin Dose 38 UNIT; Start 12/11/16 at 21:00 Morphine Sulfate (morphine) 2 mg Q4H PRN IV PAIN LEVEL 4-6 Last administered on 12/11/16 22:58; Admin Dose 2 MG; Start 12/11/16 at 22:30 Insulin Aspart (Novolog Insulin Pen) NOVOLOG *MODERATE* ALGORI... Q6 SC Last administered on 12/14/16 06:46; Admin Dose 4 UNIT; Start 12/13/16 at 00:00 Montelukast Sodium (Singulair) 10 mg HS NGT Last administered on 12/13/16 21:25 ; Admin Dose 10 MG; Start 12/13/16 at 21:00 Lisinopril 2.5 mg 2.5 mg DAILY NGT Last administered on 12/13/16 09:21; Admin Dose 2.5 MG; Start 12/13/16 at 09:00 Vancomycin HCl (Vancocin) 250 ml @ 125 mls/hr Q12H IVPB Last administered on 00:26; Admin Dose 125 MLS/HR; Start 12/14/16 at 00:00 Furosemide (Lasix) 20 mg Q8 IV Last administered on 12/14/16 05:34; Admin Dose 20 MG; Start 12/13/16 at 14:00 NAHUM BLAIR MD Dec 14, 2016 10:20
[2016-12-14] MEDS ORDERED: LIDOCAINE 1% (MDV) 20 ML INJ SC ONE (11:30)
--- NOTE | 2016-12-14 11:47 | CONS ---
Date/Time of Note Date/Time of Note DATE: 12/14/16 TIME: 11:44 Assessment/Plan Assessment/Plan Additional Assessment/Plan Chest x-ray was reviewed from today which is showing endotracheal tube at an adequate level, there are infiltrative changes/atelectasis involving the left lower lobe. Ventilator settings; AC of 14, tidal volume 500, PEEP of 5, 80% FiO2. Assessment recommendations; 1. Patient admitted for acute AK underwent emergent CABG surgery. 2. Postop respiratory failure due to COPD exacerbation left and left lower lobe pneumonia requiring reintubation. 3. Mild CHF., Radiologically improved. 4. History of hypertension. Continue current treatment. Wean down FiO2 to keep O2 sat around 92-94%. Currently patient is not in no condition to be weaned off from sedation. Patient maintains adequate O2 saturation at a lower FiO2 that she would warrant sedation vacation in less than 24 hours. Consultation Date/Type/Reason Admit Date/Time Dec 02, 2016 at 17:14 Initial Consult Date 12/05/16 Type of Consultation: Pulmonary/critical care 24 HR Interval Summary Free Text/Dictation Patient condition remains critical. Still requiring full ventilator support. Patient however has remained hemodynamically stable. General exam; elderly lady, orally intubated, sedated currently in no distress. Exam/Review of Systems Vital Signs Vitals Vital Signs Date Time Temp Pulse Resp B/P Pulse Ox O2 Delivery O2 Flow Rate FiO2 12/14/16 11:10 72 16 100 80 12/14/16 11:00 107/50 Mechanical Ventilator 12/14/16 08:00 98.4 Intake and Output 12/13/16 12/13/16 12/14/16 15:00 23:00 07:00 Intake Total 951.20 ml 600.95 ml 591.12 ml Output Total 1235 ml 630 ml 1250 ml Balance -283.80 ml -29.05 ml -658.88 ml Exam HEENT exam is; supple neck, no JVD. No lymphadenopathy. Midline trachea. Orally intubated. Patient has a multiple carious teeth. Pupils are small bilaterally. No neck masses. No thyromegaly. Chest examination AK: Diminished breath sounds left lower lobe otherwise clear to auscultation bilaterally. S1-S2 audible, no murmurs. Regular rhythm. There is a dressing applied over the sternum. Abdomen exam; soft, nondistended. No organomegaly. Bowel sounds audible. Extremity examination; no peripheral edema. Pulses 1+ bilaterally HAND OUTSIDE CUTTER examination; patient is sedated. Results Result Diagram: 12/14/16 0400 12/14/16 0400 Results 24 hrs Laboratory Tests Test 12/13/16 12:05 12/13/16 17:52 12/14/16 00:12 12/14/16 04:00 Bedside Glucose 219 166 211 White Blood Count 18.4 H Red Blood Count 3.11 L Hemoglobin 9.1 L Hematocrit 28.1 L Mean Corpuscular Volume 90.4 Mean Corpuscular Hemoglobin 29.3 Mean Corpuscular Hemoglobin Concent 32.4 Red Cell Distribution Width 14.7 H Platelet Count 434 H Mean Platelet Volume 10.5 H Neutrophils % 79.9 H Lymphocytes % 7.1 L Monocytes % 5.8 Eosinophils % 0.0 Basophils % 0.1 Nucleated Red Blood Cells % 0.0 Neutrophils # 14.7 H Lymphocytes # 1.3 Monocytes # 1.1 H Eosinophils # 0.0 Basophils # 0.0 Nucleated Red Blood Cells # 0.0 Sodium Level 146 H Potassium Level 3.5 Chloride Level 105 Carbon Dioxide Level 30 Anion Gap 15 Blood Urea Nitrogen 46 H Creatinine 0.88 Glucose Level 193 Calcium Level 7.5 L Test 12/14/16 05:00 12/14/16 06:42 Blood Gas Specimen Source Blood arterial Arterial Blood Date Drawn 12/14/2016 4:30:48 AM Arterial Blood pH (Temp corrected) 7.510 H Arterial Blood pCO2 (Temp correct) 41.7 Arterial Blood pO2 (Temp corrected) 63.7 L Arterial Blood HCO3 32.5 H Arterial Blood Base Excess 8.7 H Arterial Blood Oxygen Saturation 90.9 L Amor Test ACCEPTAB Arterial Blood Gas Puncture Site Right Radial Arterial Blood Carboxyhemoglobin 0.3 Arterial Blood Methemoglobin 0.3 Blood Gas A-a O2 Differential 245.9 H Oxyhemoglobin Percent 90.4 L Total Hemoglobin 10.6 L Blood Gas Temperature 37.0 Blood Gas Respiration Rate 14.0 Blood Gas Actual Respiration Rate 20 Blood Gas Modality VENT - AC FiO2 50.0 Blood Gas Tidal Volume 500.0 Blood Gas Low PEEP Setting 8.0 Blood Gas Notified Whom MG Blood Gas Notified Time 12/14/2016 4:52:19 AM Bedside Glucose 198 Medications Medications Current Medications Aspirin (Aspirin) 81 mg DAILY PO Last administered on 12/14/16 08:56; Admin Dose 81 MG; Start 12/03/16 at 09:00 Al Hydrox/Mg Hydrox/Simethicone (Mag-Al Plus) 30 ml Q4H PRN PO GASTROINTESTINAL UPSET; Start 12/02/16 at 15:00 Ondansetron HCl (Zofran Inj) 4 mg Q4H PRN IV NAUSEA AND/OR VOMITING; Start at 15:00 Duloxetine HCl (Cymbalta) 20 mg DAILY PO Last administered on 12/14/16 08:57; Admin Dose 20 MG; Start 12/03/16 at 09:00 Ondansetron HCl (Zofran Tab) 4 mg Q6H PRN PO NAUSEA AND/OR VOMITING; Start at 15:00 Nitroglycerin (Nitroglycerin (Sl Tab) 0.4 Mg) 1 tab Q5M PRN SL CHEST PAIN; Start 12/02/16 at 15:00 Acetaminophen (Tylenol Tab) 650 mg Q6H PRN PO PAIN LEVEL 1-3 OR FEVER Last administered on 12/03/16 12:40; Admin Dose 650 MG; Start 12/02/16 at 15:00 Acetaminophen (Tylenol Supp) 650 mg Q6H PRN [place] PAIN LEVEL 1-3 OR FEVER Last administered on 12/05/16 03:52; Admin Dose 650 MG; Start 12/02/16 at 15:00 Docusate Sodium (Colace) 100 mg Q12H PRN PO CONSTIPATION; Start 12/02/16 at 15: 00 Miscellaneous Information 1 ea NOTE XX ; Start 12/02/16 at 18:30 Glucose (Glutose) 15 gm Q15M PRN PO DECREASED GLUCOSE; Start 12/02/16 at 18:30 Glucose (Glutose) 22.5 gm Q15M PRN PO DECREASED GLUCOSE; Start 12/02/16 at 18: 30 Dextrose (D50w Syringe) 25 ml Q15M PRN IV DECREASED GLUCOSE Last administered on 12/04/16 23:54; Admin Dose 25 ML; Start 12/02/16 at 18:30 Dextrose (D50w Syringe) 50 ml Q15M PRN IV DECREASED GLUCOSE; Start 12/02/16 at 18:30 Glucagon (Glucagen) 1 mg Q15M PRN IM DECREASED GLUCOSE; Start 12/02/16 at 18:30 Glucose (Glutose) 15 gm Q15M PRN BUCCAL DECREASED GLUCOSE; Start 12/02/16 at 18 :30 Atorvastatin Calcium 80 mg 80 mg HS PO Last administered on 12/13/16 21:25; Admin Dose 80 MG; Start 12/02/16 at 21:00 Nitroglycerin/ Dextrose (Nitroglycerin 50 Mg/D5W (Pmx)) 250 ml @ 1.5 mls/hr TITRATE IV ; Start 12/04/16 at 22:30 Pantoprazole (Protonix Iv) 40 mg DAILY@06 IV Last administered on 12/14/16 05: 34; Admin Dose 40 MG; Start 12/05/16 at 06:00 Miscellaneous Information Pt Diabetic. Pls ... ONCE XX ; Start 12/06/16 at 11:30 Dopamine HCl/ Sodium Chloride (NS) 250 ml @ 7.16 mls/hr TITRATE IV ; Start at 13:00 Metoprolol Tartrate (Lopressor) 25 mg BID PO Last administered on 12/13/16 21: 26; Admin Dose 25 MG; Start 12/07/16 at 21:00 Amiodarone HCl 200 mg 200 mg BID PO Last administered on 12/14/16 08:57; Admin Dose 200 MG; Start 12/08/16 at 09:30 Piperacillin Sod/ Tazobactam Sod (Zosyn 3.375gm/ 100 ml (Pmx)) 100 ml @ 200 mls /hr Q8 IVPB Last administered on 12/14/16 05:34; Admin Dose 200 MLS/HR; Start 12/08/16 at 14:00 Methylprednisolone Sodium Succinate 80 mg 80 mg Q6 IV Last administered on 05:34; Admin Dose 80 MG; Start 12/09/16 at 12:00 Propofol 100 ml @ 2.865 mls/ hr Q12H IV Last administered on 12/14/16 10:03; Admin Dose 22.92 MLS/HR; Start 12/09/16 at 12:00 Fentanyl (Sublimaze) 100 ml @ 2.5 mls/hr TITRATE IV Last administered on 18:22; Admin Dose 4 MLS/HR; Start 12/09/16 at 12:00 Ipratropium [place] (Atrovent Hfa) 4 puff Q4H PRN INH SHORTNESS OF BREATH; Start 12/09/16 at 17:00 Enoxaparin Sodium (Lovenox) 30 mg DAILY SC Last administered on 12/14/16 09:00 ; Admin Dose 30 MG; Start 12/10/16 at 11:00 Insulin Detemir (Levemir) 38 unit BID SC Last administered on 12/14/16 08:59; Admin Dose 38 UNIT; Start 12/11/16 at 21:00 Morphine Sulfate (morphine) 2 mg Q4H PRN IV PAIN LEVEL 4-6 Last administered on 12/11/16 22:58; Admin Dose 2 MG; Start 12/11/16 at 22:30 Insulin Aspart (Novolog Insulin Pen) NOVOLOG *MODERATE* ALGORI... Q6 SC Last administered on 12/14/16 06:46; Admin Dose 4 UNIT; Start 12/13/16 at 00:00 Montelukast Sodium (Singulair) 10 mg HS NGT Last administered on 12/13/16 21:25 ; Admin Dose 10 MG; Start 12/13/16 at 21:00 Lisinopril 2.5 mg 2.5 mg DAILY NGT Last administered on 12/13/16 09:21; Admin Dose 2.5 MG; Start 12/13/16 at 09:00 Vancomycin HCl (Vancocin) 250 ml @ 125 mls/hr Q12H IVPB Last administered on 00:26; Admin Dose 125 MLS/HR; Start 12/14/16 at 00:00 Furosemide (Lasix) 20 mg Q8 IV Last administered on 12/14/16 05:34; Admin Dose 20 MG; Start 12/13/16 at 14:00 Miscellaneous Information (*Rx Drug Level Order Reminder*) 1 ONCE ONCE XX ; Start 12/15/16 at 11:00; Stop 12/15/16 at 11:01 WILMER DUTTON Dec 14, 2016 11:47
[2016-12-14] MEDS: FENTAnyl (DRIP) 1000 mcg/100mL 100 ML IV SCH (13:47)
--- NOTE | 2016-12-14 16:15 | PN ---
DATE: 12/14/2016 PALLIATIVE CARE PROGRESS NOTE SUBJECTIVE: Ms. Saavedra remains intubated. I understand her son came by this morning and calls twic e a day. I missed him this morning. He came in and left the intensive care unit before nursing had a chance to call me to speak with him. OBJECTIVE: VITAL SIGNS: Blood pressure 104/52, pulse 67 and regular, respirations of 14, temperature of 98.4 d egrees. CHEST: Shows inspiratory and expiratory breath sounds, clear on examination. CORONARY: S1, S2, without S3, S4, murmur, gallop, rub. Normal rate, normal rhythm. NEUROLOGICAL: She is sedated on propofol at this time. DATA: Laboratory tests have been reviewed. I will call her son and schedule a family conference. Dictated By: JUAN ROACH MD, LP/[place] Conf#: [id number] DID#: [id number]
--- NOTE | 2016-12-14 16:17 | PN ---
DATE: ADDENDUM: I have tried to contact patient's son, Mr. Bart Mccormack at area code [phone] and there was no pi ckup and there is no voicemail. I will continue to try and contact him. I asked the nurses to call me when he visits his mother. Dictated By: JUAN ROACH MD, LP/[place] Conf#: [id number] DID#: [id number]
--- NOTE | 2016-12-14 16:28 | CONS ---
Date/Time of Note Date/Time of Note DATE: 12/14/16 TIME: 16:26 Assessment/Plan Assessment/Plan Additional Assessment/Plan Non-ST elevation UT Multivessel coronary artery disease status post CABG Cardiomyopathy with ejection fraction 50% Respiratory failure status post reintubation Acute decompensated systolic and diastolic congestive heart failure Paroxysmal atrial fibrillation, currently sinus Diabetes Active tobacco use -Patient with improvement in chest x-ray with IV diuresis, continue as blood pressure and renal function permits. Continue aspirin and statin therapy, beta- blockers heart rate and blood pressure permits. Consultation Date/Type/Reason Admit Date/Time Dec 02, 2016 at 17:14 Type of Consultation: cv 24 HR Interval Summary Free Text/Dictation Patient remains intubated Exam/Review of Systems Vital Signs Vitals Vital Signs Date Time Temp Pulse Resp B/P Pulse Ox O2 Delivery O2 Flow Rate FiO2 12/14/16 16:00 98.3 71 15 129/83 99 Mechanical Ventilator 12/14/16 16:00 70 Intake and Output 12/13/16 12/13/16 12/14/16 15:00 23:00 07:00 Intake Total 951.20 ml 600.95 ml 591.12 ml Output Total 1235 ml 630 ml 1250 ml Balance -283.80 ml -29.05 ml -658.88 ml Exam Sedated and intubated Head: normocephalic ENMT: intubated Respiratory: other (Coarse breath sounds bilaterally, no wheezing) Cardiovascular: other (S1-S2 heard), regular rate and rhythm Gastrointestinal: bowel sounds, non-tender, other (No grimacing with palpation) , soft Extremities: edema, other (No cyanosis) Results Result Diagram: 12/14/16 0400 12/14/16 0400 Results 24 hrs Laboratory Tests Test 12/13/16 17:52 12/14/16 00:12 12/14/16 04:00 12/14/16 05:00 Bedside Glucose 166 211 White Blood Count 18.4 H Red Blood Count 3.11 L Hemoglobin 9.1 L Hematocrit 28.1 L Mean Corpuscular Volume 90.4 Mean Corpuscular Hemoglobin 29.3 Mean Corpuscular Hemoglobin Concent 32.4 Red Cell Distribution Width 14.7 H Platelet Count 434 H Mean Platelet Volume 10.5 H Neutrophils % 79.9 H Lymphocytes % 7.1 L Monocytes % 5.8 Eosinophils % 0.0 Basophils % 0.1 Nucleated Red Blood Cells % 0.0 Neutrophils # 14.7 H Lymphocytes # 1.3 Monocytes # 1.1 H Eosinophils # 0.0 Basophils # 0.0 Nucleated Red Blood Cells # 0.0 Sodium Level 146 H Potassium Level 3.5 Chloride Level 105 Carbon Dioxide Level 30 Anion Gap 15 Blood Urea Nitrogen 46 H Creatinine 0.88 Glucose Level 193 Calcium Level 7.5 L Blood Gas Specimen Source Blood arterial Arterial Blood Date Drawn 12/14/2016 4:30:48 AM Arterial Blood pH (Temp corrected) 7.510 H Arterial Blood pCO2 (Temp correct) 41.7 Arterial Blood pO2 (Temp corrected) 63.7 L Arterial Blood HCO3 32.5 H Arterial Blood Base Excess 8.7 H Arterial Blood Oxygen Saturation 90.9 L Amor Test ACCEPTAB Arterial Blood Gas Puncture Site Right Radial Arterial Blood Carboxyhemoglobin 0.3 Arterial Blood Methemoglobin 0.3 Blood Gas A-a O2 Differential 245.9 H Oxyhemoglobin Percent 90.4 L Total Hemoglobin 10.6 L Blood Gas Temperature 37.0 Blood Gas Respiration Rate 14.0 Blood Gas Actual Respiration Rate 20 Blood Gas Modality VENT - AC FiO2 50.0 Blood Gas Tidal Volume 500.0 Blood Gas Low PEEP Setting 8.0 Blood Gas Notified Whom MG Blood Gas Notified Time 12/14/2016 4:52:19 AM Test 12/14/16 06:42 12/14/16 11:54 Bedside Glucose 198 221 H Medications Medications Current Medications Aspirin (Aspirin) 81 mg DAILY PO Last administered on 12/14/16 08:56; Admin Dose 81 MG; Start 12/03/16 at 09:00 Al Hydrox/Mg Hydrox/Simethicone (Mag-Al Plus) 30 ml Q4H PRN PO GASTROINTESTINAL UPSET; Start 12/02/16 at 15:00 Ondansetron HCl (Zofran Inj) 4 mg Q4H PRN IV NAUSEA AND/OR VOMITING; Start at 15:00 Duloxetine HCl (Cymbalta) 20 mg DAILY PO Last administered on 12/14/16 08:57; Admin Dose 20 MG; Start 12/03/16 at 09:00 Ondansetron HCl (Zofran Tab) 4 mg Q6H PRN PO NAUSEA AND/OR VOMITING; Start at 15:00 Nitroglycerin (Nitroglycerin (Sl Tab) 0.4 Mg) 1 tab Q5M PRN SL CHEST PAIN; Start 12/02/16 at 15:00 Acetaminophen (Tylenol Tab) 650 mg Q6H PRN PO PAIN LEVEL 1-3 OR FEVER Last administered on 12/03/16 12:40; Admin Dose 650 MG; Start 12/02/16 at 15:00 Acetaminophen (Tylenol Supp) 650 mg Q6H PRN [place] PAIN LEVEL 1-3 OR FEVER Last administered on 12/05/16 03:52; Admin Dose 650 MG; Start 12/02/16 at 15:00 Docusate Sodium (Colace) 100 mg Q12H PRN PO CONSTIPATION; Start 12/02/16 at 15: 00 Miscellaneous Information 1 ea NOTE XX ; Start 12/02/16 at 18:30 Glucose (Glutose) 15 gm Q15M PRN PO DECREASED GLUCOSE; Start 12/02/16 at 18:30 Glucose (Glutose) 22.5 gm Q15M PRN PO DECREASED GLUCOSE; Start 12/02/16 at 18: 30 Dextrose (D50w Syringe) 25 ml Q15M PRN IV DECREASED GLUCOSE Last administered on 12/04/16 23:54; Admin Dose 25 ML; Start 12/02/16 at 18:30 Dextrose (D50w Syringe) 50 ml Q15M PRN IV DECREASED GLUCOSE; Start 12/02/16 at 18:30 Glucagon (Glucagen) 1 mg Q15M PRN IM DECREASED GLUCOSE; Start 12/02/16 at 18:30 Glucose (Glutose) 15 gm Q15M PRN BUCCAL DECREASED GLUCOSE; Start 12/02/16 at 18 :30 Atorvastatin Calcium 80 mg 80 mg HS PO Last administered on 12/13/16 21:25; Admin Dose 80 MG; Start 12/02/16 at 21:00 Nitroglycerin/ Dextrose (Nitroglycerin 50 Mg/D5W (Pmx)) 250 ml @ 1.5 mls/hr TITRATE IV ; Start 12/04/16 at 22:30 Pantoprazole (Protonix Iv) 40 mg DAILY@06 IV Last administered on 12/14/16 05: 34; Admin Dose 40 MG; Start 12/05/16 at 06:00 Miscellaneous Information Pt Diabetic. Pls ... ONCE XX ; Start 12/06/16 at 11:30 Dopamine HCl/ Sodium Chloride (NS) 250 ml @ 7.16 mls/hr TITRATE IV ; Start at 13:00 Metoprolol Tartrate (Lopressor) 25 mg BID PO Last administered on 12/13/16 21: 26; Admin Dose 25 MG; Start 12/07/16 at 21:00 Amiodarone HCl 200 mg 200 mg BID PO Last administered on 12/14/16 08:57; Admin Dose 200 MG; Start 12/08/16 at 09:30 Piperacillin Sod/ Tazobactam Sod (Zosyn 3.375gm/ 100 ml (Pmx)) 100 ml @ 200 mls /hr Q8 IVPB Last administered on 12/14/16 13:45; Admin Dose 200 MLS/HR; Start 12/08/16 at 14:00 Methylprednisolone Sodium Succinate 80 mg 80 mg Q6 IV Last administered on 11:55; Admin Dose 80 MG; Start 12/09/16 at 12:00 Propofol 100 ml @ 2.865 mls/ hr Q12H IV Last administered on 12/14/16 13:45; Admin Dose 22.92 MLS/HR; Start 12/09/16 at 12:00 Fentanyl (Sublimaze) 100 ml @ 2.5 mls/hr TITRATE IV Last administered on 13:47; Admin Dose 4 MLS/HR; Start 12/09/16 at 12:00 Ipratropium [place] (Atrovent Hfa) 4 puff Q4H PRN INH SHORTNESS OF BREATH; Start 12/09/16 at 17:00 Enoxaparin Sodium (Lovenox) 30 mg DAILY SC Last administered on 12/14/16 09:00 ; Admin Dose 30 MG; Start 12/10/16 at 11:00 Insulin Detemir (Levemir) 38 unit BID SC Last administered on 12/14/16 08:59; Admin Dose 38 UNIT; Start 12/11/16 at 21:00 Morphine Sulfate (morphine) 2 mg Q4H PRN IV PAIN LEVEL 4-6 Last administered on 12/11/16 22:58; Admin Dose 2 MG; Start 12/11/16 at 22:30 Insulin Aspart (Novolog Insulin Pen) NOVOLOG *MODERATE* ALGORI... Q6 SC Last administered on 12/14/16 12:04; Admin Dose 6 UNIT; Start 12/13/16 at 00:00 Montelukast Sodium (Singulair) 10 mg HS NGT Last administered on 12/13/16 21:25 ; Admin Dose 10 MG; Start 12/13/16 at 21:00 Lisinopril 2.5 mg 2.5 mg DAILY NGT Last administered on 12/13/16 09:21; Admin Dose 2.5 MG; Start 12/13/16 at 09:00 Vancomycin HCl (Vancocin) 250 ml @ 125 mls/hr Q12H IVPB Last administered on 12:02; Admin Dose 125 MLS/HR; Start 12/14/16 at 00:00 Furosemide (Lasix) 20 mg Q8 IV Last administered on 12/14/16 13:45; Admin Dose 20 MG; Start 12/13/16 at 14:00 Miscellaneous Information (*Rx Drug Level Order Reminder*) 1 ONCE ONCE XX ; Start 12/15/16 at 11:00; Stop 12/15/16 at 11:01 Manuel Escudero DO Dec 14, 2016 16:28
--- NOTE | 2016-12-14 16:47 | RADRPT ---
PROCEDURE: XR Chest. CLINICAL INDICATION: Check PICC line position. TECHNIQUE: Single frontal view. COMPARISON: 12/14/2016. 0626 hours. FINDINGS: There is a left arm PICC line with the tip in the lower superior vena cava. The right internal jugu lar vein sheath catheter, endotracheal tube, and nasogastric tube remain in satisfactory position. There is atelectasis at the lung bases with left worse than right, slightly improved. The lungs are otherwise clear. The heart is enlarged. There are sternal wires and mediastinal clips. There is no pleural effusion. There is no pneumothorax. IMPRESSION: 1. Satisfactory position of left arm PICC line. 2. Slightly improved appearance of the lungs. 3. No other change from the prior study done earlier the same day. RPTAT: QQ .Sly Hollis MD, MD Date Time Electronically viewed and signed by .Sly Hollis MD, MD on 12/14/2016 16:47 .R/
--- NOTE | 2016-12-14 16:53 | RADRPT ---
PROCEDURE: US guidance for PICC line CLINICAL INDICATION: PICC line placement TECHNIQUE: Multiple real-time images were acquired of the patient's arm utilizing a high resolutio n transducer. This was performed by the PICC line nurse for venous access. COMPARISON: None FINDINGS: Ultrasound guidance for PICC line placement. IMPRESSION: Ultrasound guidance for PICC line placement. RPTAT: AA .eJre Peguero MD, MD Date Time Electronically viewed and signed by .Jere Peguero MD, on 12/14/2016 16:53 .S/
[2016-12-14] MEDS ORDERED: SOD CHLORIDE 0.9% 100 ML ONE (17:40)
[2016-12-14] MEDS: ATORVASTATIN 80 MG TAB PO SCH (20:12)
[2016-12-14] MEDS: MONTELUKAST 10 MG TAB NGT SCH (20:13)
--- NOTE | 2016-12-14 22:19 | PN ---
Date/Time of Note Date/Time of Note DATE: 12/14/16 TIME: 22:16 Assessment/Plan Lines/Catheters IV Catheter Type (from Nrs): PICC Line Stearns in Place (from Nrs): Yes Assessment/Plan Chief Complaint/Hosp Course IMPRESSION: 1. Coronary artery disease. 2. Status post myocardial infarction. 3. Hepatitis C, by report. 4 Hx IVDU SP CABG PNA Hemodynamically stable Abx Intubated follow Pulm recc to tele Discussed with the patient. All questions answered. Problems: Subjective 24 Hr Interval Summary Constitutional: improved Pain Control: mild Exam/Review of Systems Vital Signs Vitals Vital Signs Date Time Temp Pulse Resp B/P Pulse Ox O2 Delivery O2 Flow Rate FiO2 12/14/16 22:00 70 14 97/50 98 Mechanical Ventilator 12/14/16 21:00 60 12/14/16 20:00 97.8 Intake and Output 12/13/16 12/13/16 12/14/16 15:00 23:00 07:00 Intake Total 951.20 ml 600.95 ml 591.12 ml Output Total 1235 ml 630 ml 1250 ml Balance -283.80 ml -29.05 ml -658.88 ml Exam Respiratory: clear to auscultation, normal air movement Cardiovascular: nl pulses, regular rate and rhythm Gastrointestinal: nl liver, spleen, non-tender, soft Results Result Diagram: 12/14/1639912/14/16399 RENETTA WATSON MD Dec 14, 2016 22:19
[2016-12-15] VITALS (59 sets, daily range): BP systolic 89–118; BP diastolic 44–66; PULSE 59–78; RESP 13–19
[2016-12-15] MEDS: IPRATROPIUM (HFA) 12.9 GM INHALER INH SCH ×6 (01:11→21:20)
[2016-12-15] MEDS: ALBUTEROL HFA 8 GM INHALER INH SCH ×6 (01:12→21:20)
[2016-12-15] MEDS: PROPOFOL 100 ML IV SCH ×4 (03:21→20:37)
[2016-12-15 04:41] LABS: ADD SCAN DIFF NO
[2016-12-15 05:14] LABS: POTASSIUM 3.9 mmol/L (3.5-5.1)
[2016-12-15 05:17] LABS: CREATININE 0.79 mg/dl (0.44-1.00)
[2016-12-15 05:18] LABS: CALCIUM 7.7 mg/dl (8.4-10.2); MAGNESIUM 2.8 mg/dl (1.7-2.5)
[2016-12-15 05:28] LABS: BASOPHILS % 0.1 % (0.0-2.0); HEMATOCRIT 28.9 % (37.0-47.0); HEMOGLOBIN 9.4 g/dl (12.0-16.0); LYMPHOCYTES # 1.1 10^3/ul (0.8-2.9); LYMPHOCYTES % 5.8 % (15.0-51.0); MEAN CORPUSCULAR HEMOGLOBIN 29.6 pg (29.0-33.0); MEAN CORPUSCULAR HGB CONC 32.5 g/dl (32.0-37.0); MEAN CORPUSCULAR VOLUME 90.9 fl (82.0-101.0); MEAN PLATELET VOLUME 10.5 fl (7.4-10.4); MONOCYTE # 0.8 10^3/ul (0.3-0.9); MONOCYTES % 4.3 % (0.0-11.0); NEUTROPHIL # 15.6 10^3/ul (1.6-7.5); NEUTROPHILS % 84.8 % (39.0-77.0); NUCLEATED RED BLOOD CELLS% 0.1 /100WBC (0.0-0.0); PLATELET COUNT 430 10^3/UL (140-415); RED BLOOD COUNT 3.18 10^6/ul (4.20-5.40); RED CELL DISTRIBUTION WIDTH 14.4 % (11.5-14.5); WHITE BLOOD COUNT 18.4 10^3/ul (4.8-10.8)
[2016-12-15] MEDS: METHYLPREDNISOLONE 125 MG INJ IV SCH ×3 (05:38→22:33)
[2016-12-15] MEDS: INSULIN ASPART [NOVOLOG] 3 ML PEN SC SCH ×5 (05:38→22:39)
[2016-12-15] MEDS: PANTOPRAZOLE 40 MG INJ IV SCH (05:39)
[2016-12-15] MEDS: PIPER-TAZO 3.375 GM IV (PMX) 100 ML IVPB SCH ×3 (05:39→22:33)
[2016-12-15] MEDS: FUROSEMIDE 20 MG INJ IV SCH ×3 (05:39→22:33)
[2016-12-15 08:26] LABS: AADO2 Arterial 309.5 mmHg (7.0-24.0); Allen Test ACCEPTAB; Arterial Base Excess 9.4 mmol/L (-3.0-3); Arterial COHb 0.3 % (0.0-3.0); Arterial Fraction of Oxyhgb 90.7 % (93.0-99.0); Arterial HCO3 33.8 mmol/L (22.0-26.0); Arterial MetHb 0.4 % (0.0-1.5); Arterial Total Hemglobin 10.3 g/dl (12.0-18.0); MODE VENT - AC
--- NOTE | 2016-12-15 08:51 | CONS ---
Date/Time of Note Date/Time of Note DATE: 12/15/16 TIME: 08:49 Assessment/Plan Assessment/Plan Additional Assessment/Plan Ventilator settings; AC of 14, tidal volume 500, PEEP of 8, 60% FiO2. Patient currently on fentanyl and propofol drips. Assessment recommendations; 1. Patient admitted for acute MD then had to undergo emergent CABG surgery. 2. Patient failed extubation and to be arranged intubated due to development of COPD exacerbation possibly left lower lobe pneumonia. 3. Advanced underlying COPD. 4. History of hypertension. 5. Persistent hypoxemia. Continue current treatment. Continue current ventilator settings, antibiotics and other supportive measures. Patient currently is not in a position to be weaned off from ventilator as of yet. Consultation Date/Type/Reason Admit Date/Time Dec 02, 2016 at 17:14 Initial Consult Date 12/05/16 Type of Consultation: Pulmonary/critical care 24 HR Interval Summary Free Text/Dictation Patient condition remains critical. Still requiring full ventilator support. At fairly high FiO2. Patient however has remained hemodynamically stable. General exam; elderly lady, orally intubated sedated currently in no distress. Exam/Review of Systems Vital Signs Vitals Vital Signs Date Time Temp Pulse Resp B/P Pulse Ox O2 Delivery O2 Flow Rate FiO2 12/15/16 07:28 70 16 94 60 12/15/16 07:00 93/44 Mechanical Ventilator 12/15/16 04:00 98.5 Intake and Output 12/14/16 12/14/16 12/15/16 15:00 23:00 07:00 Intake Total 907.52 ml 655.36 ml 978.44 ml Output Total 1200 ml 1030 ml 925 ml Balance -292.48 ml -374.64 ml 53.44 ml Exam H EENT exam is; supple neck, no JVD. No lymphadenopathy. Midline trachea. No thyromegaly. Orally intubated. Patient multiple carious teeth. No neck masses. Chest examination; diminished breath sound bilaterally. No added sounds. S1- S2 audible, no murmurs. Regular rhythm. There is a dressing applied over the sternum. Abdomen examination; soft, nondistended. Bowel is audible. No organomegaly. Extremity exam is; no peripheral edema. Pulses 1+ bilaterally. PIPE PULLER examination; patient is sedated. Results Result Diagram: 12/15/16 0325 12/15/16 0325 Results 24 hrs Laboratory Tests Test 12/14/16 11:54 12/14/16 17:40 12/14/16 20:10 12/14/16 23:48 Bedside Glucose 221 H 186 150 163 Test 12/15/16 03:25 12/15/16 05:31 12/15/16 07:39 White Blood Count 18.4 H Red Blood Count 3.18 L Hemoglobin 9.4 L Hematocrit 28.9 L Mean Corpuscular Volume 90.9 Mean Corpuscular Hemoglobin 29.6 Mean Corpuscular Hemoglobin Concent 32.5 Red Cell Distribution Width 14.4 Platelet Count 430 H Mean Platelet Volume 10.5 H Neutrophils % 84.8 H Lymphocytes % 5.8 L Monocytes % 4.3 Eosinophils % 0.0 Basophils % 0.1 Nucleated Red Blood Cells % 0.1 H Neutrophils # 15.6 H Lymphocytes # 1.1 Monocytes # 0.8 Eosinophils # 0.0 Basophils # 0.0 Nucleated Red Blood Cells # 0.0 Sodium Level 145 H Potassium Level 3.9 Chloride Level 106 Carbon Dioxide Level 31 Anion Gap 12 Blood Urea Nitrogen 46 H Creatinine 0.79 Glucose Level 189 Calcium Level 7.7 L Magnesium Level 2.8 H Bedside Glucose 199 Blood Gas Specimen Source Blood arterial Arterial Blood Date Drawn 12/15/2016 8:01:12 AM Arterial Blood pH (Temp corrected) 7.493 H Arterial Blood pCO2 (Temp correct) 45.0 Arterial Blood pO2 (Temp corrected) 68.8 L Arterial Blood HCO3 33.8 H Arterial Blood Base Excess 9.4 H Arterial Blood Oxygen Saturation 91.3 L Amor Test ACCEPTAB Arterial Blood Gas Puncture Site Right Radial Arterial Blood Carboxyhemoglobin 0.3 Arterial Blood Methemoglobin 0.4 Blood Gas A-a O2 Differential 309.5 H Oxyhemoglobin Percent 90.7 L Total Hemoglobin 10.3 L Blood Gas Temperature 37.0 Blood Gas Respiration Rate 14.0 Blood Gas Actual Respiration Rate 15 Blood Gas Modality VENT - AC FiO2 60.0 Blood Gas Tidal Volume 500.0 Blood Gas Low PEEP Setting 8.0 Blood Gas Notified Whom JLD Blood Gas Notified Time 12/15/2016 8:26:13 AM Medications Medications Current Medications Aspirin (Aspirin) 81 mg DAILY PO Last administered on 12/14/16t 08:56; Admin Dose 81 MG; Start 12/03/16 at 09:00 Al Hydrox/Mg Hydrox/Simethicone (Mag-Al Plus) 30 ml Q4H PRN PO GASTROINTESTINAL UPSET; Start 12/02/16 at 15:00 Ondansetron HCl (Zofran Inj) 4 mg Q4H PRN IV NAUSEA AND/OR VOMITING; Start at 15:00 Duloxetine HCl (Cymbalta) 20 mg DAILY PO Last administered on 12/14/16 08:57; Admin Dose 20 MG; Start 12/03/16 at 09:00 Ondansetron HCl (Zofran Tab) 4 mg Q6H PRN PO NAUSEA AND/OR VOMITING; Start at 15:00 Nitroglycerin (Nitroglycerin (Sl Tab) 0.4 Mg) 1 tab Q5M PRN SL CHEST PAIN; Start 12/02/16 at 15:00 Acetaminophen (Tylenol Tab) 650 mg Q6H PRN PO PAIN LEVEL 1-3 OR FEVER Last administered on 12/03/16 12:40; Admin Dose 650 MG; Start 12/02/16 at 15:00 Acetaminophen (Tylenol Supp) 650 mg Q6H PRN [place] PAIN LEVEL 1-3 OR FEVER Last administered on 12/05/16 03:52; Admin Dose 650 MG; Start 12/02/16 at 15:00 Docusate Sodium (Colace) 100 mg Q12H PRN PO CONSTIPATION; Start 12/02/16 at 15: 00 Miscellaneous Information 1 ea NOTE XX ; Start 12/02/16 at 18:30 Glucose (Glutose) 15 gm Q15M PRN PO DECREASED GLUCOSE; Start 12/02/16 at 18:30 Glucose (Glutose) 22.5 gm Q15M PRN PO DECREASED GLUCOSE; Start 12/02/16 at 18: 30 Dextrose (D50w Syringe) 25 ml Q15M PRN IV DECREASED GLUCOSE Last administered on 12/04/16 23:54; Admin Dose 25 ML; Start 12/02/16 at 18:30 Dextrose (D50w Syringe) 50 ml Q15M PRN IV DECREASED GLUCOSE; Start 12/02/16 at 18:30 Glucagon (Glucagen) 1 mg Q15M PRN IM DECREASED GLUCOSE; Start 12/02/16 at 18:30 Glucose (Glutose) 15 gm Q15M PRN BUCCAL DECREASED GLUCOSE; Start 12/02/16 at 18 :30 Atorvastatin Calcium 80 mg 80 mg HS PO Last administered on 12/14/16 20:12; Admin Dose 80 MG; Start 12/02/16 at 21:00 Nitroglycerin/ Dextrose (Nitroglycerin 50 Mg/D5W (Pmx)) 250 ml @ 1.5 mls/hr TITRATE IV ; Start 12/04/16 at 22:30 Pantoprazole (Protonix Iv) 40 mg DAILY@06 IV Last administered on 12/15/16 05: 39; Admin Dose 40 MG; Start 12/05/16 at 06:00 Miscellaneous Information Pt Diabetic. Pls ... ONCE XX ; Start 12/06/16 at 11:30 Dopamine HCl/ Sodium Chloride (NS) 250 ml @ 7.16 mls/hr TITRATE IV ; Start at 13:00 Metoprolol Tartrate (Lopressor) 25 mg BID PO Last administered on 12/13/16 21: 26; Admin Dose 25 MG; Start 12/07/16 at 21:00 Amiodarone HCl 200 mg 200 mg BID PO Last administered on 12/14/16 20:12; Admin Dose 200 MG; Start 12/08/16 at 09:30 Piperacillin Sod/ Tazobactam Sod (Zosyn 3.375gm/ 100 ml (Pmx)) 100 ml @ 200 mls /hr Q8 IVPB Last administered on 12/15/16 05:39; Admin Dose 200 MLS/HR; Start 12/08/16 at 14:00 Methylprednisolone Sodium Succinate 80 mg 80 mg Q6 IV Last administered on 05:38; Admin Dose 80 MG; Start 12/09/16 at 12:00 Propofol 100 ml @ 2.865 mls/ hr Q12H IV Last administered on 12/15/16 03:21; Admin Dose 22.92 MLS/HR; Start 12/09/16 at 12:00 Fentanyl (Sublimaze) 100 ml @ 2.5 mls/hr TITRATE IV Last administered on 13:47; Admin Dose 4 MLS/HR; Start 12/09/16 at 12:00 Ipratropium [place] (Atrovent Hfa) 4 puff Q4H PRN INH SHORTNESS OF BREATH; Start 12/09/16 at 17:00 Enoxaparin Sodium (Lovenox) 30 mg DAILY SC Last administered on 12/14/16 09:00 ; Admin Dose 30 MG; Start 12/10/16 at 11:00 Insulin Detemir (Levemir) 38 unit BID SC Last administered on 12/14/16 20:24; Admin Dose 38 UNIT; Start 12/11/16 at 21:00 Morphine Sulfate (morphine) 2 mg Q4H PRN IV PAIN LEVEL 4-6 Last administered on 12/11/16 22:58; Admin Dose 2 MG; Start 12/11/16 at 22:30 Insulin Aspart (Novolog Insulin Pen) NOVOLOG *MODERATE* ALGORI... Q6 SC Last administered on 12/15/16 05:38; Admin Dose 4 UNIT; Start 12/13/16 at 00:00 Montelukast Sodium (Singulair) 10 mg HS NGT Last administered on 12/14/16 20:13 ; Admin Dose 10 MG; Start 12/13/16 at 21:00 Lisinopril 2.5 mg 2.5 mg DAILY NGT Last administered on 12/13/16 09:21; Admin Dose 2.5 MG; Start 12/13/16 at 09:00 Vancomycin HCl (Vancocin) 250 ml @ 125 mls/hr Q12H IVPB Last administered on 23:52; Admin Dose 125 MLS/HR; Start 12/14/16 at 00:00 Furosemide (Lasix) 20 mg Q8 IV Last administered on 12/15/16 05:39; Admin Dose 20 MG; Start 12/13/16 at 14:00 Miscellaneous Information (*Rx Drug Level Order Reminder*) 1 ONCE ONCE XX ; Start 12/15/16 at 11:00; Stop 12/15/16 at 11:01 IV Flush (NS 10 ml) 10 ml PRN PRN IV IV PROTOCOL; Start 12/14/16 at 17:30 WILMER DUTTON Dec 15, 2016 08:51
[2016-12-15] MEDS: METOPROLOL 25 MG TAB PO SCH ×2 (09:00→20:29)
[2016-12-15] MEDS: INSULIN DETEMIR [LEVEMIR] 3ML CART SC SCH ×2 (09:20→20:35)
[2016-12-15] MEDS: ASPIRIN 81 MG TAB PO SCH (09:26)
[2016-12-15] MEDS: DULOXETINE 20 MG CAP DR PO SCH (09:26)
[2016-12-15] MEDS: POTASSIUM CHLORIDE 50 ML IVPB PRN ×3 (09:27→18:26)
[2016-12-15] MEDS: AMIODARONE 200 MG TAB PO SCH ×2 (09:27→20:32)
[2016-12-15] MEDS: ENOXAPARIN 30 MG/0.3 ML SYG SC SCH (09:29)
[2016-12-15] MEDS: LISINOPRIL 5 MG TAB NGT SCH (09:30)
--- NOTE | 2016-12-15 10:12 | PN ---
Date/Time of Note Date/Time of Note DATE: 12/15/16 TIME: 10:09 Assessment/Plan VTE Prophylaxis VTE Prophylaxis Intervention: LMWH Lines/Catheters IV Catheter Type (from Nrs): PICC Line Central line still needed: Yes Urinary Cath still in place: Yes Reason Cath still needed: other (indicate) Assessment/Plan Chief Complaint/Hosp Course ASSESSMENT AND PLAN: 1. Non-ST elevation myocardial infarction. The patient is status post left heart catheterization with a finding of multivessel coronary artery disease. Cardiothoracic surgeon consulted status post CABG, continue aspirin , Lovenox, statin and monitor blood pressure 2. Obstructive coronary artery disease as above. Cardiothoracic surgeon has been consulted. Status post CABG, continue medical management 3. Acute respiratory failure. Intubated on 12/09/2016, continue vent management, pulmonology has been consulted 4. Essential hypertension, well controlled on medical management. 4. Dyslipidemia. Continue statin. 6. Major depression. Continue Cymbalta. 7. Diabetes mellitus. Continue Levemir, insulin sliding scale, low carb diet. Continue monitor and adjust accordingly 8. Diabetic neuropathy. Continue Lyrica. 9. Leukocytosis. Likely secondary to Solu-Medrol, continue vancomycin and Zosyn, follow-up blood culture 10. For deep venous thrombosis prophylaxis, continue Lovenox 11. For gastrointestinal prophylaxis, on proton pump inhibitor. We will continue to monitor patient closely. Further recommendations, management and treatment as per clinical course. Continue to monitor in ICU secondary to respiratory failure Problems: Subjective 24 Hr Interval Summary Free Text/Dictation Patient continues to be intubated and sedated Vent settin FiO2 of 60% with PEEP of 8 Sedation via propofol and fentanyl OG tube feeding at 35 cc per an hour Exam/Review of Systems Vital Signs Vitals Vital Signs Date Time Temp Pulse Resp B/P Pulse Ox O2 Delivery O2 Flow Rate FiO2 12/15/16 08:00 71 12/15/16 07:28 16 94 60 12/15/16 07:00 93/44 Mechanical Ventilator 12/15/16 04:00 98.5 Intake and Output 12/14/16 12/14/16 12/15/16 15:00 23:00 07:00 Intake Total 907.52 ml 655.36 ml 978.44 ml Output Total 1200 ml 1030 ml 925 ml Balance -292.48 ml -374.64 ml 53.44 ml Exam General: The patient is sedated and intubated HEENT: Atraumatic, normocephalic. The pupils are equal and round . Neck: Supple Chest: Normal, surgical site is dry and clean Lungs: Clear to auscultation bilaterally Heart: Normal S1-S2, Regular rhythm and rate. Abdomen: Soft , nontender, nondistended , bowel sounds are present. Extremities: Normal to inspection, no edema no cyanosis, surgical site is dry and clean Neurologic: Sedated, opens eyes to verbal stimuli Results Result Diagram: 12/15/16 0325 12/15/16 0325 Results 24 hrs Laboratory Tests Test 12/14/16 11:54 12/14/16 17:40 12/14/16 20:10 12/14/16 23:48 Bedside Glucose 221 H 186 150 163 Test 12/15/16 03:25 12/15/16 05:31 12/15/16 07:39 12/15/16 09:17 White Blood Count 18.4 H Red Blood Count 3.18 L Hemoglobin 9.4 L Hematocrit 28.9 L Mean Corpuscular Volume 90.9 Mean Corpuscular Hemoglobin 29.6 Mean Corpuscular Hemoglobin Concent 32.5 Red Cell Distribution Width 14.4 Platelet Count 430 H Mean Platelet Volume 10.5 H Neutrophils % 84.8 H Lymphocytes % 5.8 L Monocytes % 4.3 Eosinophils % 0.0 Basophils % 0.1 Nucleated Red Blood Cells % 0.1 H Neutrophils # 15.6 H Lymphocytes # 1.1 Monocytes # 0.8 Eosinophils # 0.0 Basophils # 0.0 Nucleated Red Blood Cells # 0.0 Sodium Level 145 H Potassium Level 3.9 Chloride Level 106 Carbon Dioxide Level 31 Anion Gap 12 Blood Urea Nitrogen 46 H Creatinine 0.79 Glucose Level 189 Calcium Level 7.7 L Magnesium Level 2.8 H Bedside Glucose 199 233 H Blood Gas Specimen Source Blood arterial Arterial Blood Date Drawn 12/15/2016 8:01:12 AM Arterial Blood pH (Temp corrected) 7.493 H Arterial Blood pCO2 (Temp correct) 45.0 Arterial Blood pO2 (Temp corrected) 68.8 L Arterial Blood HCO3 33.8 H Arterial Blood Base Excess 9.4 H Arterial Blood Oxygen Saturation 91.3 L Amor Test ACCEPTAB Arterial Blood Gas Puncture Site Right Radial Arterial Blood Carboxyhemoglobin 0.3 Arterial Blood Methemoglobin 0.4 Blood Gas A-a O2 Differential 309.5 H Oxyhemoglobin Percent 90.7 L Total Hemoglobin 10.3 L Blood Gas Temperature 37.0 Blood Gas Respiration Rate 14.0 Blood Gas Actual Respiration Rate 15 Blood Gas Modality VENT - AC FiO2 60.0 Blood Gas Tidal Volume 500.0 Blood Gas Low PEEP Setting 8.0 Blood Gas Notified Whom JLD Blood Gas Notified Time 12/15/2016 8:26:13 AM Medications Medications Current Medications Aspirin (Aspirin) 81 mg DAILY PO Last administered on 12/15/16 09:26; Admin Dose 81 MG; Start 12/03/16 at 09:00 Al Hydrox/Mg Hydrox/Simethicone (Mag-Al Plus) 30 ml Q4H PRN PO GASTROINTESTINAL UPSET; Start 12/02/16 at 15:00 Ondansetron HCl (Zofran Inj) 4 mg Q4H PRN IV NAUSEA AND/OR VOMITING; Start at 15:00 Duloxetine HCl (Cymbalta) 20 mg DAILY PO Last administered on 12/15/16 09:26; Admin Dose 20 MG; Start 12/03/16 at 09:00 Ondansetron HCl (Zofran Tab) 4 mg Q6H PRN PO NAUSEA AND/OR VOMITING; Start at 15:00 Nitroglycerin (Nitroglycerin (Sl Tab) 0.4 Mg) 1 tab Q5M PRN SL CHEST PAIN; Start 12/02/16 at 15:00 Acetaminophen (Tylenol Tab) 650 mg Q6H PRN PO PAIN LEVEL 1-3 OR FEVER Last administered on 12/03/16 12:40; Admin Dose 650 MG; Start 12/02/16 at 15:00 Acetaminophen (Tylenol Supp) 650 mg Q6H PRN [place] PAIN LEVEL 1-3 OR FEVER Last administered on 12/05/16 03:52; Admin Dose 650 MG; Start 12/02/16 at 15:00 Docusate Sodium (Colace) 100 mg Q12H PRN PO CONSTIPATION; Start 12/02/16 at 15: 00 Miscellaneous Information 1 ea NOTE XX ; Start 12/02/16 at 18:30 Glucose (Glutose) 15 gm Q15M PRN PO DECREASED GLUCOSE; Start 12/02/16 at 18:30 Glucose (Glutose) 22.5 gm Q15M PRN PO DECREASED GLUCOSE; Start 12/02/16 at 18: 30 Dextrose (D50w Syringe) 25 ml Q15M PRN IV DECREASED GLUCOSE Last administered on 12/04/16 23:54; Admin Dose 25 ML; Start 12/02/16 at 18:30 Dextrose (D50w Syringe) 50 ml Q15M PRN IV DECREASED GLUCOSE; Start 12/02/16 at 18:30 Glucagon (Glucagen) 1 mg Q15M PRN IM DECREASED GLUCOSE; Start 12/02/16 at 18:30 Glucose (Glutose) 15 gm Q15M PRN BUCCAL DECREASED GLUCOSE; Start 12/02/16 at 18 :30 Atorvastatin Calcium 80 mg 80 mg HS PO Last administered on 12/14/16 20:12; Admin Dose 80 MG; Start 12/02/16 at 21:00 Nitroglycerin/ Dextrose (Nitroglycerin 50 Mg/D5W (Pmx)) 250 ml @ 1.5 mls/hr TITRATE IV ; Start 12/04/16 at 22:30 Pantoprazole (Protonix Iv) 40 mg DAILY@06 IV Last administered on 12/15/16 05: 39; Admin Dose 40 MG; Start 12/05/16 at 06:00 Miscellaneous Information Pt Diabetic. Pls ... ONCE XX ; Start 12/06/16 at 11:30 Dopamine HCl/ Sodium Chloride (NS) 250 ml @ 7.16 mls/hr TITRATE IV ; Start at 13:00 Metoprolol Tartrate (Lopressor) 25 mg BID PO Last administered on 12/13/16 21: 26; Admin Dose 25 MG; Start 12/07/16 at 21:00 Amiodarone HCl 200 mg 200 mg BID PO Last administered on 12/15/16 09:27; Admin Dose 200 MG; Start 12/08/16 at 09:30 Piperacillin Sod/ Tazobactam Sod 100 ml @ 200 mls/hr Q8 IVPB Last administered on 12/15/16 05:39; Admin Dose 200 MLS/HR; Start 12/08/16 at 14:00 Propofol 100 ml @ 2.865 mls/ hr Q12H IV Last administered on 12/15/16 08:55; Admin Dose 22.92 MLS/HR; Start 12/09/16 at 12:00 Fentanyl (Sublimaze) 100 ml @ 2.5 mls/hr TITRATE IV Last administered on 13:47; Admin Dose 4 MLS/HR; Start 12/09/16 at 12:00 Ipratropium [place] (Atrovent Hfa) 4 puff Q4H PRN INH SHORTNESS OF BREATH; Start 12/09/16 at 17:00 Enoxaparin Sodium (Lovenox) 30 mg DAILY SC Last administered on 12/15/16 09:29 ; Admin Dose 30 MG; Start 12/10/16 at 11:00 Morphine Sulfate (morphine) 2 mg Q4H PRN IV PAIN LEVEL 4-6 Last administered on 12/11/16 22:58; Admin Dose 2 MG; Start 12/11/16 at 22:30 Insulin Aspart (Novolog Insulin Pen) NOVOLOG *MODERATE* ALGORI... Q6 SC Last administered on 12/15/16 05:38; Admin Dose 4 UNIT; Start 12/13/16 at 00:00 Montelukast Sodium (Singulair) 10 mg HS NGT Last administered on 12/14/16 20:13 ; Admin Dose 10 MG; Start 12/13/16 at 21:00 Lisinopril 2.5 mg 2.5 mg DAILY NGT Last administered on 12/15/16 09:30; Admin Dose 2.5 MG; Start 12/13/16 at 09:00 Vancomycin HCl (Vancocin) 250 ml @ 125 mls/hr Q12H IVPB Last administered on 23:52; Admin Dose 125 MLS/HR; Start 12/14/16 at 00:00 Furosemide (Lasix) 20 mg Q8 IV Last administered on 12/15/16 05:39; Admin Dose 20 MG; Start 12/13/16 at 14:00 Miscellaneous Information (*Rx Drug Level Order Reminder*) 1 ONCE ONCE XX ; Start 12/15/16 at 11:00; Stop 12/15/16 at 11:01 IV Flush (NS 10 ml) 10 ml PRN PRN IV IV PROTOCOL; Start 12/14/16 at 17:30 Insulin Detemir (Levemir) 35 unit BID SC ; Start 12/15/16 at 21:00; Status UNV Methylprednisolone Sodium Succinate (Solu-Medrol) 80 mg Q8 IV ; Start 12/15/16 at 14:00; Status UNV Insulin Aspart (Novolog Insulin Pen) 8 unit Q8 SC ; Start 12/15/16 at 14:00; Status UNV NAHUM BLAIR MD Dec 15, 2016 10:12
--- NOTE | 2016-12-15 11:31 | RADRPT ---
PROCEDURE: XR Chest. CLINICAL INDICATION: Shortness of breath. TECHNIQUE: Single frontal view. COMPARISON: 12/14/2016. FINDINGS: The endotracheal tube, nasogastric tube, and left arm PICC line remain in satisfactory position. Th ere is atelectasis at the lung bases with left worse than right, unchanged. The lungs are otherwise clear. The heart is enlarged. There are sternal wires and mediastinal clips. The right internal jugular ve in sheath catheter has been removed. There is no pleural effusion. There is no pneumothorax. IMPRESSION: 1. Right internal jugular vein sheath catheter removed. 2. No other change from 12/14/2016. RPTAT: QQ .Sly Hollis MD, MD Date Time Electronically viewed and signed by .Sly Hollis MD, on 12/15/2016 11:31 .R/
[2016-12-15] MEDS: FENTAnyl (DRIP) 1000 mcg/100mL 100 ML IV SCH (13:44)
--- NOTE | 2016-12-15 13:45 | CONS ---
Date/Time of Note Date/Time of Note DATE: 12/15/16 TIME: 13:42 Assessment/Plan Assessment/Plan Additional Assessment/Plan Non-ST elevation OR Multivessel coronary artery disease status post CABG Cardiomyopathy with ejection fraction 50% Respiratory failure status post reintubation Acute decompensated systolic and diastolic congestive heart failure Paroxysmal atrial fibrillation, currently sinus Diabetes Active tobacco use -Cont IV diuresis as blood pressure and renal function permits. Continue aspirin and statin therapy, beta-blockers as heart rate and blood pressure permits. Consultation Date/Type/Reason Admit Date/Time Dec 02, 2016 at 17:14 Type of Consultation: cv 24 HR Interval Summary Free Text/Dictation pt seen and examined Exam/Review of Systems Vital Signs Vitals Vital Signs Date Time Temp Pulse Resp B/P Pulse Ox O2 Delivery O2 Flow Rate FiO2 12/15/16 12:00 68 12/15/16 11:15 16 97 12/15/16 11:00 111/55 Mechanical Ventilator 12/15/16 08:00 60 12/15/16 08:00 98.7 Intake and Output 12/14/16 12/14/16 12/15/16 15:00 23:00 07:00 Intake Total 907.52 ml 655.36 ml 978.44 ml Output Total 1200 ml 1030 ml 925 ml Balance -292.48 ml -374.64 ml 53.44 ml Exam sedated and intubated Head: normocephalic ENMT: intubated Respiratory: other (course bs, no wheeze) Cardiovascular: other (s1s2), regular rate and rhythm Gastrointestinal: bowel sounds, non-tender, soft Extremities: edema (trace), other Results Result Diagram: 12/15/16 0325 12/15/16 0325 Results 24 hrs Laboratory Tests Test 12/14/16 17:40 12/14/16 20:10 12/14/16 23:48 12/15/16 03:25 Bedside Glucose 186 150 163 White Blood Count 18.4 H Red Blood Count 3.18 L Hemoglobin 9.4 L Hematocrit 28.9 L Mean Corpuscular Volume 90.9 Mean Corpuscular Hemoglobin 29.6 Mean Corpuscular Hemoglobin Concent 32.5 Red Cell Distribution Width 14.4 Platelet Count 430 H Mean Platelet Volume 10.5 H Neutrophils % 84.8 H Lymphocytes % 5.8 L Monocytes % 4.3 Eosinophils % 0.0 Basophils % 0.1 Nucleated Red Blood Cells % 0.1 H Neutrophils # 15.6 H Lymphocytes # 1.1 Monocytes # 0.8 Eosinophils # 0.0 Basophils # 0.0 Nucleated Red Blood Cells # 0.0 Sodium Level 145 H Potassium Level 3.9 Chloride Level 106 Carbon Dioxide Level 31 Anion Gap 12 Blood Urea Nitrogen 46 H Creatinine 0.79 Glucose Level 189 Calcium Level 7.7 L Magnesium Level 2.8 H Test 12/15/16 05:31 12/15/16 07:39 12/15/16 09:17 12/15/16 11:15 Bedside Glucose 199 233 H Blood Gas Specimen Source Blood arterial Arterial Blood Date Drawn 12/15/2016 8:01:12 AM Arterial Blood pH (Temp corrected) 7.493 H Arterial Blood pCO2 (Temp correct) 45.0 Arterial Blood pO2 (Temp corrected) 68.8 L Arterial Blood HCO3 33.8 H Arterial Blood Base Excess 9.4 H Arterial Blood Oxygen Saturation 91.3 L Amor Test ACCEPTAB Arterial Blood Gas Puncture Site Right Radial Arterial Blood Carboxyhemoglobin 0.3 Arterial Blood Methemoglobin 0.4 Blood Gas A-a O2 Differential 309.5 H Oxyhemoglobin Percent 90.7 L Total Hemoglobin 10.3 L Blood Gas Temperature 37.0 Blood Gas Respiration Rate 14.0 Blood Gas Actual Respiration Rate 15 Blood Gas Modality VENT - AC FiO2 60.0 Blood Gas Tidal Volume 500.0 Blood Gas Low PEEP Setting 8.0 Blood Gas Notified Whom JLD Blood Gas Notified Time 12/15/2016 8:26:13 AM Vancomycin Level Trough 13.3 Test 12/15/16 13:25 Bedside Glucose 179 Medications Medications Current Medications Aspirin (Aspirin) 81 mg DAILY PO Last administered on 12/15/16 09:26; Admin Dose 81 MG; Start 12/03/16 at 09:00 Al Hydrox/Mg Hydrox/Simethicone (Mag-Al Plus) 30 ml Q4H PRN PO GASTROINTESTINAL UPSET; Start 12/02/16 at 15:00 Ondansetron HCl (Zofran Inj) 4 mg Q4H PRN IV NAUSEA AND/OR VOMITING; Start at 15:00 Duloxetine HCl (Cymbalta) 20 mg DAILY PO Last administered on 12/15/16 09:26; Admin Dose 20 MG; Start 12/03/16 at 09:00 Ondansetron HCl (Zofran Tab) 4 mg Q6H PRN PO NAUSEA AND/OR VOMITING; Start at 15:00 Nitroglycerin (Nitroglycerin (Sl Tab) 0.4 Mg) 1 tab Q5M PRN SL CHEST PAIN; Start 12/02/16 at 15:00 Acetaminophen (Tylenol Tab) 650 mg Q6H PRN PO PAIN LEVEL 1-3 OR FEVER Last administered on 12/03/16 12:40; Admin Dose 650 MG; Start 12/02/16 at 15:00 Acetaminophen (Tylenol Supp) [address] PAIN LEVEL 1-3 OR FEVER Last administered on 12/05/16 03:52; Admin Dose 650 MG; Start 12/02/16 at 15:00 Docusate Sodium (Colace) 100 mg Q12H PRN PO CONSTIPATION; Start 12/02/16 at 15: 00 Miscellaneous Information 1 ea NOTE XX ; Start 12/02/16 at 18:30 Glucose (Glutose) 15 gm Q15M PRN PO DECREASED GLUCOSE; Start 12/02/16 at 18:30 Glucose (Glutose) 22.5 gm Q15M PRN PO DECREASED GLUCOSE; Start 12/02/16 at 18: 30 Dextrose (D50w Syringe) 25 ml Q15M PRN IV DECREASED GLUCOSE Last administered on 12/04/16 23:54; Admin Dose 25 ML; Start 12/02/16 at 18:30 Dextrose (D50w Syringe) 50 ml Q15M PRN IV DECREASED GLUCOSE; Start 12/02/16 at 18:30 Glucagon (Glucagen) 1 mg Q15M PRN IM DECREASED GLUCOSE; Start 12/02/16 at 18:30 Glucose (Glutose) 15 gm Q15M PRN BUCCAL DECREASED GLUCOSE; Start 12/02/16 at 18 :30 Atorvastatin Calcium 80 mg 80 mg HS PO Last administered on 12/14/16 20:12; Admin Dose 80 MG; Start 12/02/16 at 21:00 Nitroglycerin/ Dextrose (Nitroglycerin 50 Mg/D5W (Pmx)) 250 ml @ 1.5 mls/hr TITRATE IV ; Start 12/04/16 at 22:30 Pantoprazole (Protonix Iv) 40 mg DAILY@06 IV Last administered on 12/15/16 05: 39; Admin Dose 40 MG; Start 12/05/16 at 06:00 Miscellaneous Information Pt Diabetic. Pls ... ONCE XX ; Start 12/06/16 at 11:30 Dopamine HCl/ Sodium Chloride (NS) 250 ml @ 7.16 mls/hr TITRATE IV ; Start at 13:00 Metoprolol Tartrate (Lopressor) 25 mg BID PO Last administered on 12/13/16 21: 26; Admin Dose 25 MG; Start 12/07/16 at 21:00 Amiodarone HCl 200 mg 200 mg BID PO Last administered on 12/15/16 09:27; Admin Dose 200 MG; Start 12/08/16 at 09:30 Piperacillin Sod/ Tazobactam Sod 100 ml @ 200 mls/hr Q8 IVPB Last administered on 12/15/16 05:39; Admin Dose 200 MLS/HR; Start 12/08/16 at 14:00 Propofol 100 ml @ 2.865 mls/ hr Q12H IV Last administered on 12/15/16 08:55; Admin Dose 22.92 MLS/HR; Start 12/09/16 at 12:00 Fentanyl (Sublimaze) 100 ml @ 2.5 mls/hr TITRATE IV Last administered on 13:47; Admin Dose 4 MLS/HR; Start 12/09/16 at 12:00 Ipratropium [place] (Atrovent Hfa) 4 puff Q4H PRN INH SHORTNESS OF BREATH; Start 12/09/16 at 17:00 Enoxaparin Sodium (Lovenox) 30 mg DAILY SC Last administered on 12/15/16 09:29 ; Admin Dose 30 MG; Start 12/10/16 at 11:00 Morphine Sulfate (morphine) 2 mg Q4H PRN IV PAIN LEVEL 4-6 Last administered on 12/11/16 22:58; Admin Dose 2 MG; Start 12/11/16 at 22:30 Insulin Aspart (Novolog Insulin Pen) NOVOLOG *MODERATE* ALGORI... Q6 SC Last administered on 12/15/16 05:38; Admin Dose 4 UNIT; Start 12/13/16 at 00:00 Montelukast Sodium (Singulair) 10 mg HS NGT Last administered on 12/14/16 20:13 ; Admin Dose 10 MG; Start 12/13/16 at 21:00 Lisinopril 2.5 mg 2.5 mg DAILY NGT Last administered on 12/15/16 09:30; Admin Dose 2.5 MG; Start 12/13/16 at 09:00 Vancomycin HCl (Vancocin) 250 ml @ 125 mls/hr Q12H IVPB Last administered on 23:52; Admin Dose 125 MLS/HR; Start 12/14/16 at 00:00 Furosemide (Lasix) 20 mg Q8 IV Last administered on 12/15/16 05:39; Admin Dose 20 MG; Start 12/13/16 at 14:00 IV Flush (NS 10 ml) 10 ml PRN PRN IV IV PROTOCOL; Start 12/14/16 at 17:30 Insulin Detemir (Levemir) 35 unit BID SC ; Start 12/15/16 at 21:00 Methylprednisolone Sodium Succinate (Solu-Medrol) 80 mg Q8 IV ; Start 12/15/16 at 14:00 Insulin Aspart (Novolog Insulin Pen) 8 unit Q8 SC ; Start 12/15/16 at 14:00 Manuel Escudero DO Dec 15, 2016 13:45
[2016-12-15] MEDS: VANCOMYCIN 1 GM in NS 250 ML IVPB SCH (14:29)
--- NOTE | 2016-12-15 19:09 | PN ---
Date/Time of Note Date/Time of Note DATE: 12/15/16 TIME: 19:08 Assessment/Plan Lines/Catheters IV Catheter Type (from Nrs): PICC Line Stearns in Place (from Nrs): Yes Assessment/Plan Chief Complaint/Hosp Course IMPRESSION: 1. Coronary artery disease. 2. Status post myocardial infarction. 3. Hepatitis C, by report. 4 Hx IVDU SP CABG PNA Hemodynamically stable Abx Intubated follow Pulm recc may need tracheostomy to tele Discussed with the patient. All questions answered. Problems: Subjective 24 Hr Interval Summary Constitutional: improved Pain Control: mild Exam/Review of Systems Vital Signs Vitals Vital Signs Date Time Temp Pulse Resp B/P Pulse Ox O2 Delivery O2 Flow Rate FiO2 12/15/16 18:00 69 13 101/48 97 Mechanical Ventilator 12/15/16 17:57 60 12/15/16 16:00 97.4 Intake and Output 12/14/16 12/14/16 12/15/16 15:00 23:00 07:00 Intake Total 907.52 ml 655.36 ml 978.44 ml Output Total 1200 ml 1030 ml 925 ml Balance -292.48 ml -374.64 ml 53.44 ml Exam Neck: non-tender, supple Respiratory: clear to auscultation, normal air movement Cardiovascular: nl pulses, regular rate and rhythm Gastrointestinal: nl liver, spleen, non-tender, soft Results Result Diagram: 12/15/16 0325 12/15/16 1405 RENETTA WATSON MD Dec 15, 2016 19:09
[2016-12-15] MEDS: ATORVASTATIN 80 MG TAB PO SCH (20:28)
[2016-12-15] MEDS: MONTELUKAST 10 MG TAB NGT SCH (20:29)
[2016-12-16] VITALS (49 sets, daily range): BP systolic 88–135; BP diastolic 44–75; PULSE 56–78; RESP 0–20
[2016-12-16] MEDS: VANCOMYCIN 1 GM in NS 250 ML IVPB SCH ×2 (00:55→11:38)
[2016-12-16] MEDS: POTASSIUM CHLORIDE 50 ML IVPB PRN (00:57)
[2016-12-16] MEDS: PROPOFOL 100 ML IV SCH ×5 (00:58→21:46)
[2016-12-16] MEDS: INSULIN ASPART [NOVOLOG] 3 ML PEN SC SCH ×7 (01:00→21:46)
[2016-12-16] MEDS: IPRATROPIUM (HFA) 12.9 GM INHALER INH SCH ×6 (01:07→20:59)
[2016-12-16] MEDS: ALBUTEROL HFA 8 GM INHALER INH SCH ×6 (01:07→21:00)
[2016-12-16] MEDS: PANTOPRAZOLE 40 MG INJ IV SCH (06:04)
[2016-12-16] MEDS: PIPER-TAZO 3.375 GM IV (PMX) 100 ML IVPB SCH ×3 (06:05→21:34)
[2016-12-16] MEDS: METHYLPREDNISOLONE 125 MG INJ IV SCH ×3 (06:07→21:33)
[2016-12-16 06:08] LABS: ADD SCAN DIFF NO
[2016-12-16] MEDS: FUROSEMIDE 20 MG INJ IV SCH ×3 (06:13→21:38)
[2016-12-16 06:19] LABS: BASOPHILS % 0.1 % (0.0-2.0); HEMATOCRIT 27.9 % (37.0-47.0); HEMOGLOBIN 9.2 g/dl (12.0-16.0); LYMPHOCYTES # 0.7 10^3/ul (0.8-2.9); LYMPHOCYTES % 3.9 % (15.0-51.0); MEAN CORPUSCULAR HEMOGLOBIN 29.8 pg (29.0-33.0); MEAN CORPUSCULAR VOLUME 90.3 fl (82.0-101.0); MEAN PLATELET VOLUME 10.3 fl (7.4-10.4); MONOCYTE # 0.6 10^3/ul (0.3-0.9); MONOCYTES % 3.2 % (0.0-11.0); NEUTROPHIL # 16.8 10^3/ul (1.6-7.5); NEUTROPHILS % 89.8 % (39.0-77.0); PLATELET COUNT 387 10^3/UL (140-415); RED BLOOD COUNT 3.09 10^6/ul (4.20-5.40); RED CELL DISTRIBUTION WIDTH 14.4 % (11.5-14.5); WHITE BLOOD COUNT 18.7 10^3/ul (4.8-10.8)
[2016-12-16] MEDS: FENTAnyl (DRIP) 1000 mcg/100mL 100 ML IV SCH (06:21)
[2016-12-16 06:28] LABS: CREATININE 0.76 mg/dl (0.44-1.00)
[2016-12-16 06:29] LABS: CALCIUM 7.3 mg/dl (8.4-10.2); MAGNESIUM 2.9 mg/dl (1.7-2.5)
[2016-12-16] MEDS: DULOXETINE 20 MG CAP DR PO SCH (09:03)
[2016-12-16] MEDS: AMIODARONE 200 MG TAB PO SCH ×2 (09:03→21:33)
[2016-12-16] MEDS: ASPIRIN 81 MG TAB PO SCH (09:03)
[2016-12-16] MEDS: LISINOPRIL 5 MG TAB NGT SCH (09:03)
[2016-12-16] MEDS: METOPROLOL 25 MG TAB PO SCH ×2 (09:07→21:00)
[2016-12-16] MEDS: INSULIN DETEMIR [LEVEMIR] 3ML CART SC SCH ×2 (09:14→21:42)
[2016-12-16] MEDS: ENOXAPARIN 30 MG/0.3 ML SYG SC SCH (09:15)
--- NOTE | 2016-12-16 09:32 | CONS ---
Date/Time of Note Date/Time of Note DATE: 12/16/16 TIME: 09:28 Assessment/Plan Assessment/Plan Additional Assessment/Plan Ventilator settings assist control of 14, tidal volume 500, PEEP of 8, 40% FiO2. Patient now back on fentanyl 30 mics per hour and propofol 25 mics per kilo per minute. Assessment recommendations; next 1. Patient admitted for acute [facility] underwent emergent CABG surgery. 2. Failed extubation and had to be intubated for COPD exacerbation. 3. Left lower lobe pneumonia. 4. History of diabetes, hypertension. 5. Patient currently unable to be weaned from ventilator. Continue current treatment. Give another weaning trial in 24 hours. Obtain follow-up chest x-ray tomorrow morning. Consultation Date/Type/Reason Admit Date/Time Dec 02, 2016 at 17:14 Initial Consult Date 12/05/16 Type of Consultation: Pulmonary/critical care 24 HR Interval Summary Free Text/Dictation Patient condition remains critical. Still requiring full ventilator support. However patient's FiO2 has been weaned down to 40%. The patient has been taken off sedation short while ago and was put on CPAP mode but did not do well and had to be reverted back to assist control mode and re-sedated. General exam; elderly lady, orally intubated, prior to being put back on sedation patient was completely awake and alert. Exam/Review of Systems Vital Signs Vitals Vital Signs Date Time Temp Pulse Resp B/P Pulse Ox O2 Delivery O2 Flow Rate FiO2 12/16/16 08:00 97.7 73 14 109/69 96 Mechanical Ventilator 12/16/16 04:45 40 Intake and Output 12/15/16 12/15/16 12/16/16 15:00 23:00 07:00 Intake Total 751.04 ml 938.6 ml 927 ml Output Total 800 ml 650 ml 580 ml Balance -48.96 ml 288.6 ml 347 ml Exam HEENT exam is; supple neck, no JVD. No lymphadenopathy. Midline trachea. No thyromegaly. Orally intubated. Patient has a multiple carious teeth. There was a small bilaterally. Chest examination [facility]: Diminished but clear breath sounds. No added sounds. S1- S2 audible, no murmurs. Regular rhythm. There is a well-healed sternal scar. Abdomen exam is; soft, nondistended, nontender. Bowel sounds audible. No organomegaly. Extremity exam; no peripheral edema. HEALTH DIRECTOR exam is; prior to being re-sedated patient was following commands moving all 4 extremities. Results Result Diagram: 12/16/16 0600 12/16/16 0600 Results 24 hrs Laboratory Tests Test 12/15/16 11:15 12/15/16 13:25 12/15/16 14:05 12/15/16 17:23 Vancomycin Level Trough 13.3 Bedside Glucose 179 137 Potassium Level 3.5 Test 12/15/16 20:33 12/15/16 22:20 12/15/16 22:29 12/16/16 00:54 Bedside Glucose 134 163 159 Potassium Level 3.7 Test 12/16/16 06:00 12/16/16 06:03 12/16/16 09:10 White Blood Count 18.7 H Red Blood Count 3.09 L Hemoglobin 9.2 L Hematocrit 27.9 L Mean Corpuscular Volume 90.3 Mean Corpuscular Hemoglobin 29.8 Mean Corpuscular Hemoglobin Concent 33.0 Red Cell Distribution Width 14.4 Platelet Count 387 Mean Platelet Volume 10.3 Neutrophils % 89.8 H Lymphocytes % 3.9 L Monocytes % 3.2 Eosinophils % 0.0 Basophils % 0.1 Nucleated Red Blood Cells % 0.0 Neutrophils # 16.8 H Lymphocytes # 0.7 L Monocytes # 0.6 Eosinophils # 0.0 Basophils # 0.0 Nucleated Red Blood Cells # 0.0 Sodium Level 144 Potassium Level 4.0 Chloride Level 109 Carbon Dioxide Level 32 H Anion Gap 7 L Blood Urea Nitrogen 45 H Creatinine 0.76 Glucose Level 148 # Calcium Level 7.3 L Magnesium Level 2.9 H Bedside Glucose 158 146 Medications Medications Current Medications Aspirin (Aspirin) 81 mg DAILY PO Last administered on 12/16/16 09:03; Admin Dose 81 MG; Start 12/03/16 at 09:00 Al Hydrox/Mg Hydrox/Simethicone (Mag-Al Plus) 30 ml Q4H PRN PO GASTROINTESTINAL UPSET; Start 12/02/16 at 15:00 Ondansetron HCl (Zofran Inj) 4 mg Q4H PRN IV NAUSEA AND/OR VOMITING; Start at 15:00 Duloxetine HCl (Cymbalta) 20 mg DAILY PO Last administered on 12/16/16 09:03; Admin Dose 20 MG; Start 12/03/16 at 09:00 Ondansetron HCl (Zofran Tab) 4 mg Q6H PRN PO NAUSEA AND/OR VOMITING; Start at 15:00 Nitroglycerin (Nitroglycerin (Sl Tab) 0.4 Mg) 1 tab Q5M PRN SL CHEST PAIN; Start 12/02/16 at 15:00 Acetaminophen (Tylenol Tab) 650 mg Q6H PRN PO PAIN LEVEL 1-3 OR FEVER Last administered on 12/03/16 12:40; Admin Dose 650 MG; Start 12/02/16 at 15:00 Acetaminophen (Tylenol Supp) 650 mg Q6H PRN [place] PAIN LEVEL 1-3 OR FEVER Last administered on 12/05/16 03:52; Admin Dose 650 MG; Start 12/02/16 at 15:00 Docusate Sodium (Colace) 100 mg Q12H PRN PO CONSTIPATION; Start 12/02/16 at 15: 00 Miscellaneous Information 1 ea NOTE XX ; Start 12/02/16 at 18:30 Glucose (Glutose) 15 gm Q15M PRN PO DECREASED GLUCOSE; Start 12/02/16 at 18:30 Glucose (Glutose) 22.5 gm Q15M PRN PO DECREASED GLUCOSE; Start 12/02/16 at 18: 30 Dextrose (D50w Syringe) 25 ml Q15M PRN IV DECREASED GLUCOSE Last administered on 12/04/16 23:54; Admin Dose 25 ML; Start 12/02/16 at 18:30 Dextrose (D50w Syringe) 50 ml Q15M PRN IV DECREASED GLUCOSE; Start 12/02/16 at 18:30 Glucagon (Glucagen) 1 mg Q15M PRN IM DECREASED GLUCOSE; Start 12/02/16 at 18:30 Glucose (Glutose) 15 gm Q15M PRN BUCCAL DECREASED GLUCOSE; Start 12/02/16 at 18 :30 Atorvastatin Calcium 80 mg 80 mg HS PO Last administered on 12/15/16 20:28; Admin Dose 80 MG; Start 12/02/16 at 21:00 Nitroglycerin/ Dextrose (Nitroglycerin 50 Mg/D5W (Pmx)) 250 ml @ 1.5 mls/hr TITRATE IV ; Start 12/04/16 at 22:30 Pantoprazole (Protonix Iv) 40 mg DAILY@06 IV Last administered on 12/16/16 06: 04; Admin Dose 40 MG; Start 12/05/16 at 06:00 Miscellaneous Information Pt Diabetic. Pls ... ONCE XX ; Start 12/06/16 at 11:30 Dopamine HCl/ Sodium Chloride (NS) 250 ml @ 7.16 mls/hr TITRATE IV ; Start at 13:00 Metoprolol Tartrate (Lopressor) 25 mg BID PO Last administered on 12/16/16 09: 07; Admin Dose 25 MG; Start 12/07/16 at 21:00 Amiodarone HCl 200 mg 200 mg BID PO Last administered on 12/16/16 09:03; Admin Dose 200 MG; Start 12/08/16 at 09:30 Piperacillin Sod/ Tazobactam Sod 100 ml @ 200 mls/hr Q8 IVPB Last administered on 12/16/16 06:05; Admin Dose 200 MLS/HR; Start 12/08/16 at 14:00 Propofol 100 ml @ 2.865 mls/ hr Q12H IV Last administered on 12/16/16 06:23; Admin Dose 14.325 MLS/HR; Start 12/09/16 at 12:00 Fentanyl (Sublimaze) 100 ml @ 2.5 mls/hr TITRATE IV Last administered on 06:21; Admin Dose 3 MLS/HR; Start 12/09/16 at 12:00 Ipratropium [place] (Atrovent Hfa) 4 puff Q4H PRN INH SHORTNESS OF BREATH; Start 12/09/16 at 17:00 Enoxaparin Sodium (Lovenox) 30 mg DAILY SC Last administered on 12/16/16 09:15 ; Admin Dose 30 MG; Start 12/10/16 at 11:00 Morphine Sulfate (morphine) 2 mg Q4H PRN IV PAIN LEVEL 4-6 Last administered on 12/11/16 22:58; Admin Dose 2 MG; Start 12/11/16 at 22:30 Insulin Aspart (Novolog Insulin Pen) NOVOLOG *MODERATE* ALGORI... Q6 SC Last administered on 12/16/16 06:10; Admin Dose 2 UNIT; Start 12/13/16 at 00:00 Montelukast Sodium (Singulair) 10 mg HS NGT Last administered on 12/15/16 20:29 ; Admin Dose 10 MG; Start 12/13/16 at 21:00 Lisinopril 2.5 mg 2.5 mg DAILY NGT Last administered on 12/16/16 09:03; Admin Dose 2.5 MG; Start 12/13/16 at 09:00 Vancomycin HCl (Vancocin) 250 ml @ 125 mls/hr Q12H IVPB Last administered on 00:55; Admin Dose 125 MLS/HR; Start 12/14/16 at 00:00 Furosemide (Lasix) 20 mg Q8 IV Last administered on 12/16/16 06:13; Admin Dose 20 MG; Start 12/13/16 at 14:00 IV Flush (NS 10 ml) 10 ml PRN PRN IV IV PROTOCOL; Start 12/14/16 at 17:30 Insulin Detemir (Levemir) 35 unit BID SC Last administered on 12/16/16 09:14; Admin Dose 35 UNIT; Start 12/15/16 at 21:00 Methylprednisolone Sodium Succinate (Solu-Medrol) 80 mg Q8 IV Last administered on 12/16/16 06:07; Admin Dose 80 MG; Start 12/15/16 at 14:00 Insulin Aspart (Novolog Insulin Pen) 8 unit Q8 SC Last administered on 06:11; Admin Dose 8 UNIT; Start 12/15/16 at 14:00 WILMER DUTTON Dec 16, 2016 09:31
--- NOTE | 2016-12-16 10:34 | PN ---
Date/Time of Note Date/Time of Note DATE: 12/16/16 TIME: 10:32 Assessment/Plan VTE Prophylaxis VTE Prophylaxis Intervention: LMWH Lines/Catheters IV Catheter Type (from Nrs): PICC Line Central line still needed: Yes Urinary Cath still in place: Yes Reason Cath still needed: other (indicate) Assessment/Plan Chief Complaint/Hosp Course ASSESSMENT AND PLAN: 1. Non-ST elevation myocardial infarction. The patient is status post left heart catheterization with a finding of multivessel coronary artery disease. Cardiothoracic surgeon consulted status post CABG, continue aspirin , Lovenox, statin and monitor blood pressure 2. Obstructive coronary artery disease as above. Cardiothoracic surgeon has been consulted. Status post CABG, continue medical management 3. Acute respiratory failure. Intubated on 12/09/2016, continue vent management, pulmonology has been consulted, plan to transition to CPAP and possible weaning from the vent today 4. Essential hypertension, well controlled on medical management. 4. Dyslipidemia. Continue statin. 6. Major depression. Continue Cymbalta. 7. Diabetes mellitus. Continue Levemir, insulin sliding scale, low carb diet. Continue monitor and adjust accordingly 8. Diabetic neuropathy. Continue Lyrica. 9. Leukocytosis. Likely secondary to Solu-Medrol, continue vancomycin and Zosyn, follow-up blood culture 10. For deep venous thrombosis prophylaxis, continue Lovenox 11. For gastrointestinal prophylaxis, on proton pump inhibitor. We will continue to monitor patient closely. Further recommendations, management and treatment as per clinical course. Continue to monitor in ICU secondary to respiratory failure Problems: Subjective 24 Hr Interval Summary Free Text/Dictation Patient continues to be on vent and sedation Vent setting, SIMV, FiO2 550, FiO2 of 60% with PEEP of 6 Sedation via propofol and fentanyl NG tube in place at 35 cc/h Exam/Review of Systems Vital Signs Vitals Vital Signs Date Time Temp Pulse Resp B/P Pulse Ox O2 Delivery O2 Flow Rate FiO2 12/16/16 10:00 76 16 111/74 95 Mechanical Ventilator 12/16/16 08:00 97.7 12/16/16 04:45 40 Intake and Output 12/15/16 12/15/16 12/16/16 15:00 23:00 07:00 Intake Total 751.04 ml 938.6 ml 927 ml Output Total 800 ml 650 ml 580 ml Balance -48.96 ml 288.6 ml 347 ml Exam General: The patient is intubated HEENT: Atraumatic, normocephalic. The pupils are equal and round . Neck: Supple with full range of motion. Chest: Normal, surgical site is dry and clean Lungs: Clear to auscultation bilaterally Heart: Normal S1-S2, Regular rhythm and rate. Abdomen: Soft , nontender, nondistended , bowel sounds are present. Extremities: Surgical site is dry and clean no edema no cyanosis Neurologic: Sedated, opens eyes by verbal command Results Result Diagram: 12/16/16 0600 12/16/16 0600 Results 24 hrs Laboratory Tests Test 12/15/16 11:15 12/15/16 13:25 12/15/16 14:05 12/15/16 17:23 Vancomycin Level Trough 13.3 Bedside Glucose 179 137 Potassium Level 3.5 Test 12/15/16 20:33 12/15/16 22:20 12/15/16 22:29 12/16/16 00:54 Bedside Glucose 134 163 159 Potassium Level 3.7 Test 12/16/16 06:00 12/16/16 06:03 12/16/16 09:10 White Blood Count 18.7 H Red Blood Count 3.09 L Hemoglobin 9.2 L Hematocrit 27.9 L Mean Corpuscular Volume 90.3 Mean Corpuscular Hemoglobin 29.8 Mean Corpuscular Hemoglobin Concent 33.0 Red Cell Distribution Width 14.4 Platelet Count 387 Mean Platelet Volume 10.3 Neutrophils % 89.8 H Lymphocytes % 3.9 L Monocytes % 3.2 Eosinophils % 0.0 Basophils % 0.1 Nucleated Red Blood Cells % 0.0 Neutrophils # 16.8 H Lymphocytes # 0.7 L Monocytes # 0.6 Eosinophils # 0.0 Basophils # 0.0 Nucleated Red Blood Cells # 0.0 Sodium Level 144 Potassium Level 4.0 Chloride Level 109 Carbon Dioxide Level 32 H Anion Gap 7 L Blood Urea Nitrogen 45 H Creatinine 0.76 Glucose Level 148 # Calcium Level 7.3 L Magnesium Level 2.9 H Bedside Glucose 158 146 Medications Medications Current Medications Aspirin (Aspirin) 81 mg DAILY PO Last administered on 12/16/16t 09:03; Admin Dose 81 MG; Start 12/03/16 at 09:00 Al Hydrox/Mg Hydrox/Simethicone (Mag-Al Plus) 30 ml Q4H PRN PO GASTROINTESTINAL UPSET; Start 12/02/16 at 15:00 Ondansetron HCl (Zofran Inj) 4 mg Q4H PRN IV NAUSEA AND/OR VOMITING; Start at 15:00 Duloxetine HCl (Cymbalta) 20 mg DAILY PO Last administered on 12/16/16 09:03; Admin Dose 20 MG; Start 12/03/16 at 09:00 Ondansetron HCl (Zofran Tab) 4 mg Q6H PRN PO NAUSEA AND/OR VOMITING; Start at 15:00 Nitroglycerin (Nitroglycerin (Sl Tab) 0.4 Mg) 1 tab Q5M PRN SL CHEST PAIN; Start 12/02/16 at 15:00 Acetaminophen (Tylenol Tab) 650 mg Q6H PRN PO PAIN LEVEL 1-3 OR FEVER Last administered on 12/03/16 12:40; Admin Dose 650 MG; Start 12/02/16 at 15:00 Acetaminophen (Tylenol Supp) 650 mg Q6H PRN ND PAIN LEVEL 1-3 OR FEVER Last administered on 12/05/16 03:52; Admin Dose 650 MG; Start 12/02/16 at 15:00 Docusate Sodium (Colace) 100 mg Q12H PRN PO CONSTIPATION; Start 12/02/16 at 15: 00 Miscellaneous Information 1 ea NOTE XX ; Start 12/02/16 at 18:30 Glucose (Glutose) 15 gm Q15M PRN PO DECREASED GLUCOSE; Start 12/02/16 at 18:30 Glucose (Glutose) 22.5 gm Q15M PRN PO DECREASED GLUCOSE; Start 12/02/16 at 18: 30 Dextrose (D50w Syringe) 25 ml Q15M PRN IV DECREASED GLUCOSE Last administered on 12/04/16 23:54; Admin Dose 25 ML; Start 12/02/16 at 18:30 Dextrose (D50w Syringe) 50 ml Q15M PRN IV DECREASED GLUCOSE; Start 12/02/16 at 18:30 Glucagon (Glucagen) 1 mg Q15M PRN IM DECREASED GLUCOSE; Start 12/02/16 at 18:30 Glucose (Glutose) 15 gm Q15M PRN BUCCAL DECREASED GLUCOSE; Start 12/02/16 at 18 :30 Atorvastatin Calcium 80 mg 80 mg HS PO Last administered on 12/15/16 20:28; Admin Dose 80 MG; Start 12/02/16 at 21:00 Nitroglycerin/ Dextrose (Nitroglycerin 50 Mg/D5W (Pmx)) 250 ml @ 1.5 mls/hr TITRATE IV ; Start 12/04/16 at 22:30 Pantoprazole (Protonix Iv) 40 mg DAILY@06 IV Last administered on 12/16/16 06: 04; Admin Dose 40 MG; Start 12/05/16 at 06:00 Miscellaneous Information Pt Diabetic. Pls ... ONCE XX ; Start 12/06/16 at 11:30 Dopamine HCl/ Sodium Chloride (NS) 250 ml @ 7.16 mls/hr TITRATE IV ; Start at 13:00 Metoprolol Tartrate (Lopressor) 25 mg BID PO Last administered on 12/16/16 09: 07; Admin Dose 25 MG; Start 12/07/16 at 21:00 Amiodarone HCl 200 mg 200 mg BID PO Last administered on 12/16/16 09:03; Admin Dose 200 MG; Start 12/08/16 at 09:30 Piperacillin Sod/ Tazobactam Sod 100 ml @ 200 mls/hr Q8 IVPB Last administered on 12/16/16 06:05; Admin Dose 200 MLS/HR; Start 12/08/16 at 14:00 Propofol 100 ml @ 2.865 mls/ hr Q12H IV Last administered on 12/16/16 06:23; Admin Dose 14.325 MLS/HR; Start 12/09/16 at 12:00 Fentanyl (Sublimaze) 100 ml @ 2.5 mls/hr TITRATE IV Last administered on 06:21; Admin Dose 3 MLS/HR; Start 12/09/16 at 12:00 Ipratropium [place] (Atrovent Hfa) 4 puff Q4H PRN INH SHORTNESS OF BREATH; Start 12/09/16 at 17:00 Enoxaparin Sodium (Lovenox) 30 mg DAILY SC Last administered on 12/16/16 09:15 ; Admin Dose 30 MG; Start 12/10/16 at 11:00 Morphine Sulfate (morphine) 2 mg Q4H PRN IV PAIN LEVEL 4-6 Last administered on 12/11/16 22:58; Admin Dose 2 MG; Start 12/11/16 at 22:30 Insulin Aspart (Novolog Insulin Pen) NOVOLOG *MODERATE* ALGORI... Q6 SC Last administered on 12/16/16 06:10; Admin Dose 2 UNIT; Start 12/13/16 at 00:00 Montelukast Sodium (Singulair) 10 mg HS NGT Last administered on 12/15/16 20:29 ; Admin Dose 10 MG; Start 12/13/16 at 21:00 Lisinopril 2.5 mg 2.5 mg DAILY NGT Last administered on 12/16/16 09:03; Admin Dose 2.5 MG; Start 12/13/16 at 09:00 Vancomycin HCl (Vancocin) 250 ml @ 125 mls/hr Q12H IVPB Last administered on 00:55; Admin Dose 125 MLS/HR; Start 12/14/16 at 00:00 Furosemide (Lasix) 20 mg Q8 IV Last administered on 12/16/16 06:13; Admin Dose 20 MG; Start 12/13/16 at 14:00 IV Flush (NS 10 ml) 10 ml PRN PRN IV IV PROTOCOL; Start 12/14/16 at 17:30 Insulin Detemir (Levemir) 35 unit BID SC Last administered on 12/16/16 09:14; Admin Dose 35 UNIT; Start 12/15/16 at 21:00 Methylprednisolone Sodium Succinate (Solu-Medrol) 80 mg Q8 IV Last administered on 12/16/16 06:07; Admin Dose 80 MG; Start 12/15/16 at 14:00 Insulin Aspart (Novolog Insulin Pen) 8 unit Q8 SC Last administered on 06:11; Admin Dose 8 UNIT; Start 12/15/16 at 14:00 NAHUM BLAIR MD Dec 16, 2016 10:34
--- NOTE | 2016-12-16 12:19 | CONS ---
Date/Time of Note Date/Time of Note DATE: 12/16/16 TIME: 12:18 Assessment/Plan Assessment/Plan Additional Assessment/Plan Non-ST elevation IA Multivessel coronary artery disease status post CABG Cardiomyopathy with ejection fraction 50% Respiratory failure status post reintubation Acute decompensated systolic and diastolic congestive heart failure Paroxysmal atrial fibrillation, currently sinus Diabetes Active tobacco use -Cont IV diuresis as blood pressure and renal function permits. Continue aspirin and statin therapy, beta-blockers as heart rate and blood pressure permits. Consultation Date/Type/Reason Admit Date/Time Dec 02, 2016 at 17:14 Type of Consultation: cv 24 HR Interval Summary Free Text/Dictation Patient remains intubated, more awake today, following commands Exam/Review of Systems Vital Signs Vitals Vital Signs Date Time Temp Pulse Resp B/P Pulse Ox O2 Delivery O2 Flow Rate FiO2 12/16/16 10:00 76 16 111/74 95 Mechanical Ventilator 12/16/16 08:00 97.7 12/16/16 08:00 40 Intake and Output 12/15/16 12/15/16 12/16/16 15:00 23:00 07:00 Intake Total 751.04 ml 938.6 ml 927 ml Output Total 800 ml 650 ml 580 ml Balance -48.96 ml 288.6 ml 347 ml Exam Awake, following commands, no apparent distress Head: normocephalic ENMT: intubated Respiratory: other (Coarse breath sounds bilaterally, no wheezing) Cardiovascular: other (S1-S2 heard), regular rate and rhythm Gastrointestinal: bowel sounds, non-tender, soft Extremities: edema, other (No cyanosis) Results Result Diagram: 12/16/16 0600 12/16/16 0600 Results 24 hrs Laboratory Tests Test 12/15/16 13:25 12/15/16 14:05 12/15/16 17:23 12/15/16 20:33 Bedside Glucose 179 137 134 Potassium Level 3.5 Test 12/15/16 22:20 12/15/16 22:29 12/16/16 00:54 12/16/16 06:00 Potassium Level 3.7 4.0 Bedside Glucose 163 159 White Blood Count 18.7 H Red Blood Count 3.09 L Hemoglobin 9.2 L Hematocrit 27.9 L Mean Corpuscular Volume 90.3 Mean Corpuscular Hemoglobin 29.8 Mean Corpuscular Hemoglobin Concent 33.0 Red Cell Distribution Width 14.4 Platelet Count 387 Mean Platelet Volume 10.3 Neutrophils % 89.8 H Lymphocytes % 3.9 L Monocytes % 3.2 Eosinophils % 0.0 Basophils % 0.1 Nucleated Red Blood Cells % 0.0 Neutrophils # 16.8 H Lymphocytes # 0.7 L Monocytes # 0.6 Eosinophils # 0.0 Basophils # 0.0 Nucleated Red Blood Cells # 0.0 Sodium Level 144 Chloride Level 109 Carbon Dioxide Level 32 H Anion Gap 7 L Blood Urea Nitrogen 45 H Creatinine 0.76 Glucose Level 148 # Calcium Level 7.3 L Magnesium Level 2.9 H Test 12/16/16 06:03 12/16/16 09:10 12/16/16 11:37 Bedside Glucose 158 146 145 Medications Medications Current Medications Aspirin (Aspirin) 81 mg DAILY PO Last administered on 12/16/16 09:03; Admin Dose 81 MG; Start 12/03/16 at 09:00 Al Hydrox/Mg Hydrox/Simethicone (Mag-Al Plus) 30 ml Q4H PRN PO GASTROINTESTINAL UPSET; Start 12/02/16 at 15:00 Ondansetron HCl (Zofran Inj) 4 mg Q4H PRN IV NAUSEA AND/OR VOMITING; Start at 15:00 Duloxetine HCl (Cymbalta) 20 mg DAILY PO Last administered on 12/16/16 09:03; Admin Dose 20 MG; Start 12/03/16 at 09:00 Ondansetron HCl (Zofran Tab) 4 mg Q6H PRN PO NAUSEA AND/OR VOMITING; Start at 15:00 Nitroglycerin (Nitroglycerin (Sl Tab) 0.4 Mg) 1 tab Q5M PRN SL CHEST PAIN; Start 12/02/16 at 15:00 Acetaminophen (Tylenol Tab) 650 mg Q6H PRN PO PAIN LEVEL 1-3 OR FEVER Last administered on 12/03/16 12:40; Admin Dose 650 MG; Start 12/02/16 at 15:00 Acetaminophen (Tylenol Supp) 650 mg Q6H PRN LA PAIN LEVEL 1-3 OR FEVER Last administered on 12/05/16 03:52; Admin Dose 650 MG; Start 12/02/16 at 15:00 Docusate Sodium (Colace) 100 mg Q12H PRN PO CONSTIPATION; Start 12/02/16 at 15: 00 Miscellaneous Information 1 ea NOTE XX ; Start 12/02/16 at 18:30 Glucose (Glutose) 15 gm Q15M PRN PO DECREASED GLUCOSE; Start 12/02/16 at 18:30 Glucose (Glutose) 22.5 gm Q15M PRN PO DECREASED GLUCOSE; Start 12/02/16 at 18: 30 Dextrose (D50w Syringe) 25 ml Q15M PRN IV DECREASED GLUCOSE Last administered on 12/04/16 23:54; Admin Dose 25 ML; Start 12/02/16 at 18:30 Dextrose (D50w Syringe) 50 ml Q15M PRN IV DECREASED GLUCOSE; Start 12/02/16 at 18:30 Glucagon (Glucagen) 1 mg Q15M PRN IM DECREASED GLUCOSE; Start 12/02/16 at 18:30 Glucose (Glutose) 15 gm Q15M PRN BUCCAL DECREASED GLUCOSE; Start 12/02/16 at 18 :30 Atorvastatin Calcium 80 mg 80 mg HS PO Last administered on 12/15/16 20:28; Admin Dose 80 MG; Start 12/02/16 at 21:00 Nitroglycerin/ Dextrose (Nitroglycerin 50 Mg/D5W (Pmx)) 250 ml @ 1.5 mls/hr TITRATE IV ; Start 12/04/16 at 22:30 Pantoprazole (Protonix Iv) 40 mg DAILY@06 IV Last administered on 12/16/16 06: 04; Admin Dose 40 MG; Start 12/05/16 at 06:00 Miscellaneous Information Pt Diabetic. Pls ... ONCE XX ; Start 12/06/16 at 11:30 Dopamine HCl/ Sodium Chloride (NS) 250 ml @ 7.16 mls/hr TITRATE IV ; Start at 13:00 Metoprolol Tartrate (Lopressor) 25 mg BID PO Last administered on 12/16/16 09: 07; Admin Dose 25 MG; Start 12/07/16 at 21:00 Amiodarone HCl 200 mg 200 mg BID PO Last administered on 12/16/16 09:03; Admin Dose 200 MG; Start 12/08/16 at 09:30 Piperacillin Sod/ Tazobactam Sod 100 ml @ 200 mls/hr Q8 IVPB Last administered on 12/16/16 06:05; Admin Dose 200 MLS/HR; Start 12/08/16 at 14:00 Propofol 100 ml @ 2.865 mls/ hr Q12H IV Last administered on 12/16/16 06:23; Admin Dose 14.325 MLS/HR; Start 12/09/16 at 12:00 Fentanyl (Sublimaze) 100 ml @ 2.5 mls/hr TITRATE IV Last administered on 06:21; Admin Dose 3 MLS/HR; Start 12/09/16 at 12:00 Ipratropium Sparks (Atrovent Hfa) 4 puff Q4H PRN INH SHORTNESS OF BREATH; Start 12/09/16 at 17:00 Enoxaparin Sodium (Lovenox) 30 mg DAILY SC Last administered on 12/16/16 09:15 ; Admin Dose 30 MG; Start 12/10/16 at 11:00 Morphine Sulfate (morphine) 2 mg Q4H PRN IV PAIN LEVEL 4-6 Last administered on 12/11/16 22:58; Admin Dose 2 MG; Start 12/11/16 at 22:30 Insulin Aspart (Novolog Insulin Pen) NOVOLOG *MODERATE* ALGORI... Q6 SC Last administered on 12/16/16 11:40; Admin Dose 2 UNIT; Start 12/13/16 at 00:00 Montelukast Sodium (Singulair) 10 mg HS NGT Last administered on 12/15/16 20:29 ; Admin Dose 10 MG; Start 12/13/16 at 21:00 Lisinopril 2.5 mg 2.5 mg DAILY NGT Last administered on 12/16/16 09:03; Admin Dose 2.5 MG; Start 12/13/16 at 09:00 Vancomycin HCl (Vancocin) 250 ml @ 125 mls/hr Q12H IVPB Last administered on 11:38; Admin Dose 125 MLS/HR; Start 12/14/16 at 00:00 Furosemide (Lasix) 20 mg Q8 IV Last administered on 12/16/16 06:13; Admin Dose 20 MG; Start 12/13/16 at 14:00 IV Flush (NS 10 ml) 10 ml PRN PRN IV IV PROTOCOL; Start 12/14/16 at 17:30 Insulin Detemir (Levemir) 35 unit BID SC Last administered on 12/16/16 09:14; Admin Dose 35 UNIT; Start 12/15/16 at 21:00 Methylprednisolone Sodium Succinate (Solu-Medrol) 80 mg Q8 IV Last administered on 12/16/16 06:07; Admin Dose 80 MG; Start 12/15/16 at 14:00 Insulin Aspart (Novolog Insulin Pen) 8 unit Q8 SC Last administered on 06:11; Admin Dose 8 UNIT; Start 12/15/16 at 14:00 Manuel Escudero DO Dec 16, 2016 12:19
--- NOTE | 2016-12-16 12:47 | PN ---
DATE: 12/16/2016 PALLIATIVE CARE FAMILY CONFERENCE I had a 45-minute conversation with patient's son yesterday by the bedside. We covered her medical problems including recent heart attack, chronic obstructive pulmonary disease, respiratory failure r equiring extended respiratory support and intubation, history of diabetes, neuropathy, obesity, acti vely smoking. He was aware of all his mother's risk factors, and the fact that she continued to smo ke prior to hospitalization. The patient is a full code. Yesterday she was having weaning with att empts to have sedation vacations. Unfortunately today she is back on the fentanyl and Propofol. Re viewing medical records from pulmonary, the patient will be given another weaning within 24 hours. I have told the patient's son that we hope that she will improve, but she does have major comorbid m edical problems, and I have discussed with them she may require PEG and trach unfortunately. He see ms to understand this. He did text me his phone number. We will keep in touch with each other. Dictated By: JUAN ROACH MD, LP/[place] Conf#: [id number] DID#: [id number]
--- NOTE | 2016-12-16 13:24 | PN ---
Date/Time of Note Date/Time of Note DATE: 12/16/16 TIME: 13:24 Assessment/Plan Lines/Catheters IV Catheter Type (from Nrs): PICC Line Stearns in Place (from Nrs): Yes Assessment/Plan Chief Complaint/Hosp Course IMPRESSION: 1. Coronary artery disease. 2. Status post myocardial infarction. 3. Hepatitis C, by report. 4 Hx IVDU SP CABG PNA Hemodynamically stable Abx Intubated follow Pulm recc may need tracheostomy to tele Discussed with the patient. All questions answered. Problems: Subjective 24 Hr Interval Summary Constitutional: improved Pain Control: mild Exam/Review of Systems Vital Signs Vitals Vital Signs Date Time Temp Pulse Resp B/P Pulse Ox O2 Delivery O2 Flow Rate FiO2 12/16/16 12:00 97.7 65 16 102/56 94 Mechanical Ventilator 12/16/16 08:00 40 Intake and Output 12/15/16 12/15/16 12/16/16 15:00 23:00 07:00 Intake Total 751.04 ml 938.6 ml 927 ml Output Total 800 ml 650 ml 580 ml Balance -48.96 ml 288.6 ml 347 ml Exam Neck: non-tender, supple Respiratory: clear to auscultation, normal air movement Cardiovascular: nl pulses, regular rate and rhythm Gastrointestinal: nl liver, spleen, non-tender, soft Results Result Diagram: 12/16/16 0612/16/16 06 MALERENETTA BAXTER MD Dec 16, 2016 13:24
[2016-12-16] MEDS: MONTELUKAST 10 MG TAB NGT SCH (21:33)
[2016-12-16] MEDS: ATORVASTATIN 80 MG TAB PO SCH (21:33)
[2016-12-17] VITALS (38 sets, daily range): BP systolic 88–133; BP diastolic 45–75; PULSE 63–99; RESP 14–33
[2016-12-17] MEDS: ALBUTEROL HFA 8 GM INHALER INH SCH ×2 (01:07→04:47)
[2016-12-17] MEDS: IPRATROPIUM (HFA) 12.9 GM INHALER INH SCH ×2 (01:08→04:47)
[2016-12-17] MEDS: VANCOMYCIN 1 GM in NS 250 ML IVPB SCH ×2 (01:51→12:10)
[2016-12-17] MEDS: INSULIN ASPART [NOVOLOG] 3 ML PEN SC SCH ×6 (01:55→22:53)
[2016-12-17] MEDS: PROPOFOL 100 ML IV SCH ×2 (02:56→07:09)
[2016-12-17] MEDS: PIPER-TAZO 3.375 GM IV (PMX) 100 ML IVPB SCH ×3 (05:27→22:45)
[2016-12-17] MEDS: FUROSEMIDE 20 MG INJ IV SCH ×3 (05:30→22:48)
[2016-12-17] MEDS: PANTOPRAZOLE 40 MG INJ IV SCH (05:30)
[2016-12-17] MEDS: METHYLPREDNISOLONE 125 MG INJ IV SCH ×3 (05:33→22:47)
[2016-12-17 06:24] LABS: ADD SCAN DIFF NO
[2016-12-17 06:29] LABS: BASOPHILS % 0.1 % (0.0-2.0); HEMATOCRIT 29.5 % (37.0-47.0); HEMOGLOBIN 9.7 g/dl (12.0-16.0); LYMPHOCYTES # 0.7 10^3/ul (0.8-2.9); LYMPHOCYTES % 3.4 % (15.0-51.0); MEAN CORPUSCULAR HEMOGLOBIN 29.8 pg (29.0-33.0); MEAN CORPUSCULAR HGB CONC 32.9 g/dl (32.0-37.0); MEAN CORPUSCULAR VOLUME 90.5 fl (82.0-101.0); MEAN PLATELET VOLUME 10.8 fl (7.4-10.4); MONOCYTE # 0.7 10^3/ul (0.3-0.9); MONOCYTES % 3.4 % (0.0-11.0); NEUTROPHIL # 18.6 10^3/ul (1.6-7.5); NEUTROPHILS % 90.3 % (39.0-77.0); PLATELET COUNT 373 10^3/UL (140-415); RED BLOOD COUNT 3.26 10^6/ul (4.20-5.40); RED CELL DISTRIBUTION WIDTH 14.5 % (11.5-14.5); WHITE BLOOD COUNT 20.6 10^3/ul (4.8-10.8)
[2016-12-17 06:55] LABS: POTASSIUM 3.6 mmol/L (3.5-5.1)
[2016-12-17 06:58] LABS: CREATININE 0.74 mg/dl (0.44-1.00)
[2016-12-17 06:59] LABS: CALCIUM 7.5 mg/dl (8.4-10.2); MAGNESIUM 2.9 mg/dl (1.7-2.5)
[2016-12-17] MEDS: METOPROLOL 25 MG TAB PO SCH ×2 (08:18→20:16)
[2016-12-17] MEDS: ASPIRIN 81 MG TAB PO SCH (08:19)
[2016-12-17] MEDS: LISINOPRIL 5 MG TAB NGT SCH (08:19)
[2016-12-17] MEDS: AMIODARONE 200 MG TAB PO SCH ×2 (08:20→20:16)
[2016-12-17] MEDS: DULOXETINE 20 MG CAP DR PO SCH (08:20)
[2016-12-17] MEDS: INSULIN DETEMIR [LEVEMIR] 3ML CART SC SCH ×2 (08:33→20:00)
[2016-12-17] MEDS: ENOXAPARIN 30 MG/0.3 ML SYG SC SCH (08:34)
--- NOTE | 2016-12-17 09:08 | CONS ---
Date/Time of Note Date/Time of Note DATE: 12/17/16 TIME: 09:05 Assessment/Plan Assessment/Plan Additional Assessment/Plan Ventilator settings are AC of 14, tidal volume 500, PEEP of 8, 40% FiO2. Assessment recommendations; 1. Patient admitted for acute CA underwent emergent CABG surgery. 2. Underlying severe COPD. 3. Patient failed extubation after surgery and had to be reintubated for respiratory failure. 4. History of hypertension or diabetes. 5. Left lower lobe pneumonia. Hold sedation again. When the patient is off sedative effect she will be evaluated for possible weaning from ventilator. Meanwhile continue current antibiotics other supportive measures. Consultation Date/Type/Reason Admit Date/Time Dec 02, 2016 at 17:14 Initial Consult Date 12/05/16 Type of Consultation: Pulmonary/critical care 24 HR Interval Summary Free Text/Dictation Patient condition remains critical. Still requiring ventilator support as well as sedation with combination propofol and fentanyl drips. Patient however has remained hemodynamically stable. General exam; elderly woman, orally intubated, sedated currently in no distress. Exam/Review of Systems Vital Signs Vitals Vital Signs Date Time Temp Pulse Resp B/P Pulse Ox O2 Delivery O2 Flow Rate FiO2 12/17/16 08:00 67 12/17/16 05:00 17 95 40 12/17/16 03:00 93/60 Mechanical Ventilator 12/17/16 00:00 98.5 Intake and Output 12/16/16 12/16/16 12/17/16 15:00 23:00 07:00 Intake Total 830.86 ml 582.96 ml 924 ml Output Total 730 ml 775 ml 525 ml Balance 100.86 ml -192.04 ml 399 ml Exam HEENT exam is; supple neck, no JVD. No lymphadenopathy. Midline trachea. Orally intubated. Patient does not multiple carious teeth. Pupils are small bilaterally. No neck masses, no thyromegaly. Chest examination; diminished but clear breath sounds. S1-S2 audible, no murmurs. Regular rhythm. There is a dressing applied over the sternum. Abdomen examination; no organomegaly. Nondistended. Bowel sounds audible. Extremity exam is; no peripheral edema. Pulses 1+ bilaterally. PET NUTRITION SPECIALIST examination; patient is sedated. Results Result Diagram: 12/17/16 0510 12/17/16 0510 Results 24 hrs Laboratory Tests Test 12/16/16 09:10 4/5/17 11:37 12/16/16 17:27 12/16/16 21:31 Bedside Glucose 146 145 128 172 Test 12/17/16 01:52 12/17/16 05:10 12/17/16 05:26 12/17/16 08:31 Bedside Glucose 153 172 146 White Blood Count 20.6 H Red Blood Count 3.26 L Hemoglobin 9.7 L Hematocrit 29.5 L Mean Corpuscular Volume 90.5 Mean Corpuscular Hemoglobin 29.8 Mean Corpuscular Hemoglobin Concent 32.9 Red Cell Distribution Width 14.5 Platelet Count 373 Mean Platelet Volume 10.8 H Neutrophils % 90.3 H Lymphocytes % 3.4 L Monocytes % 3.4 Eosinophils % 0.0 Basophils % 0.1 Nucleated Red Blood Cells % 0.0 Neutrophils # 18.6 H Lymphocytes # 0.7 L Monocytes # 0.7 Eosinophils # 0.0 Basophils # 0.0 Nucleated Red Blood Cells # 0.0 Sodium Level 146 H Potassium Level 3.6 Chloride Level 105 Carbon Dioxide Level 32 H Anion Gap 13 Blood Urea Nitrogen 48 H Creatinine 0.74 Glucose Level 175 Calcium Level 7.5 L Magnesium Level 2.9 H Medications Medications Current Medications Aspirin (Aspirin) 81 mg DAILY PO Last administered on 12/17/16 08:19; Admin Dose 81 MG; Start 12/03/16 at 09:00 Al Hydrox/Mg Hydrox/Simethicone (Mag-Al Plus) 30 ml Q4H PRN PO GASTROINTESTINAL UPSET; Start 12/02/16 at 15:00 Ondansetron HCl (Zofran Inj) 4 mg Q4H PRN IV NAUSEA AND/OR VOMITING; Start at 15:00 Duloxetine HCl (Cymbalta) 20 mg DAILY PO Last administered on 12/17/16 08:20; Admin Dose 20 MG; Start 12/03/16 at 09:00 Ondansetron HCl (Zofran Tab) 4 mg Q6H PRN PO NAUSEA AND/OR VOMITING; Start at 15:00 Nitroglycerin (Nitroglycerin (Sl Tab) 0.4 Mg) 1 tab Q5M PRN SL CHEST PAIN; Start 12/02/16 at 15:00 Acetaminophen (Tylenol Tab) 650 mg Q6H PRN PO PAIN LEVEL 1-3 OR FEVER Last administered on 12/03/16 12:40; Admin Dose 650 MG; Start 12/02/16 at 15:00 Acetaminophen (Tylenol Supp) 650 mg Q6H PRN [place] PAIN LEVEL 1-3 OR FEVER Last administered on 12/05/16 03:52; Admin Dose 650 MG; Start 12/02/16 at 15:00 Docusate Sodium (Colace) 100 mg Q12H PRN PO CONSTIPATION; Start 12/02/16 at 15: 00 Miscellaneous Information 1 ea NOTE XX ; Start 12/02/16 at 18:30 Glucose (Glutose) 15 gm Q15M PRN PO DECREASED GLUCOSE; Start 12/02/16 at 18:30 Glucose (Glutose) 22.5 gm Q15M PRN PO DECREASED GLUCOSE; Start 12/02/16 at 18: 30 Dextrose (D50w Syringe) 25 ml Q15M PRN IV DECREASED GLUCOSE Last administered on 12/04/16 23:54; Admin Dose 25 ML; Start 12/02/16 at 18:30 Dextrose (D50w Syringe) 50 ml Q15M PRN IV DECREASED GLUCOSE; Start 12/02/16 at 18:30 Glucagon (Glucagen) 1 mg Q15M PRN IM DECREASED GLUCOSE; Start 12/02/16 at 18:30 Glucose (Glutose) 15 gm Q15M PRN BUCCAL DECREASED GLUCOSE; Start 12/02/16 at 18 :30 Atorvastatin Calcium 80 mg 80 mg HS PO Last administered on 12/16/16 21:33; Admin Dose 80 MG; Start 12/02/16 at 21:00 Nitroglycerin/ Dextrose (Nitroglycerin 50 Mg/D5W (Pmx)) 250 ml @ 1.5 mls/hr TITRATE IV ; Start 12/04/16 at 22:30 Pantoprazole (Protonix Iv) 40 mg DAILY@06 IV Last administered on 12/17/16 05: 30; Admin Dose 40 MG; Start 12/05/16 at 06:00 Miscellaneous Information Pt Diabetic. Pls ... ONCE XX ; Start 12/06/16 at 11:30 Dopamine HCl/ Sodium Chloride (NS) 250 ml @ 7.16 mls/hr TITRATE IV ; Start at 13:00 Metoprolol Tartrate (Lopressor) 25 mg BID PO Last administered on 12/16/16 09: 07; Admin Dose 25 MG; Start 12/07/16 at 21:00 Amiodarone HCl 200 mg 200 mg BID PO Last administered on 12/17/16 08:20; Admin Dose 200 MG; Start 12/08/16 at 09:30 Piperacillin Sod/ Tazobactam Sod 100 ml @ 200 mls/hr Q8 IVPB Last administered on 12/17/16 05:27; Admin Dose 200 MLS/HR; Start 12/08/16 at 14:00 Propofol 100 ml @ 2.865 mls/ hr Q12H IV Last administered on 12/17/16 07:09; Admin Dose 20.055 MLS/HR; Start 12/09/16 at 12:00 Fentanyl (Sublimaze) 100 ml @ 2.5 mls/hr TITRATE IV Last administered on 06:21; Admin Dose 3 MLS/HR; Start 12/09/16 at 12:00 Ipratropium [place] (Atrovent Hfa) 4 puff Q4H PRN INH SHORTNESS OF BREATH; Start 12/09/16 at 17:00 Enoxaparin Sodium (Lovenox) 30 mg DAILY SC Last administered on 12/17/16 08:34 ; Admin Dose 30 MG; Start 12/10/16 at 11:00 Morphine Sulfate (morphine) 2 mg Q4H PRN IV PAIN LEVEL 4-6 Last administered on 12/11/16 22:58; Admin Dose 2 MG; Start 12/11/16 at 22:30 Insulin Aspart (Novolog Insulin Pen) NOVOLOG *MODERATE* ALGORI... Q6 SC Last administered on 12/17/16 05:36; Admin Dose 2 UNIT; Start 12/13/16 at 00:00 Montelukast Sodium (Singulair) 10 mg HS NGT Last administered on 12/16/16 21:33 ; Admin Dose 10 MG; Start 12/13/16 at 21:00 Lisinopril 2.5 mg 2.5 mg DAILY NGT Last administered on 12/17/16 08:19; Admin Dose 2.5 MG; Start 12/13/16 at 09:00 Vancomycin HCl (Vancocin) 250 ml @ 125 mls/hr Q12H IVPB Last administered on 01:51; Admin Dose 125 MLS/HR; Start 12/14/16 at 00:00 Furosemide (Lasix) 20 mg Q8 IV Last administered on 12/17/16 05:30; Admin Dose 20 MG; Start 12/13/16 at 14:00 IV Flush (NS 10 ml) 10 ml PRN PRN IV IV PROTOCOL; Start 12/14/16 at 17:30 Insulin Detemir (Levemir) 35 unit BID SC Last administered on 12/17/16 08:33; Admin Dose 35 UNIT; Start 12/15/16 at 21:00 Methylprednisolone Sodium Succinate (Solu-Medrol) 80 mg Q8 IV Last administered on 12/17/16 05:33; Admin Dose 80 MG; Start 12/15/16 at 14:00 Insulin Aspart (Novolog Insulin Pen) 8 unit Q8 SC Last administered on 05:35; Admin Dose 8 UNIT; Start 12/15/16 at 14:00 WILMER DUTTON Dec 17, 2016 09:08
--- NOTE | 2016-12-17 09:52 | RADRPT ---
PROCEDURE: XR Chest. CLINICAL INDICATION: Respiratory failure TECHNIQUE: An AP view of the chest was obtained. COMPARISON: Chest x-ray dated 12/15/2016 FINDINGS: The endotracheal tube tip is approximately 4.9 cm above the teodoro. The tip of the enteric tube ex tends below the left diaphragm. There is a left upper extremity PICC line with tip in the mid SVC Patient rotation limits evaluation. There is prominence of the interstitial markings with small bi lateral pleural effusions. There is obscuration of the left diaphragm. No pneumothorax is seen. The cardiomediastinal silhouette is mildly enlarged . Calcifications are seen within the aortic arch. There are post cardiac surgery changes with sternotomy wires and mediastinal clips. The osseous stru ctures demonstrate senescent changes. IMPRESSION: 1. Findings suggestive of mild interstitial edema with small bilateral pleural effusions. Findings are mildly increased when compared to the prior examination. 2. Left basilar atelectasis. 3. Mild cardiomegaly and aortic atherosclerosis. 4. Tubes and lines, as described above. RPTAT: HH .Susan Herr MD, MD Date Time Electronically viewed and signed by .Susan Herr MD, MD on 12/17/2016 09:52 .G/
[2016-12-17] MEDS ORDERED: ALBUTEROL/IPRATROPIUM (NEB) 3 ML AMP HHN PRN (10:30)
--- NOTE | 2016-12-17 10:38 | PN ---
Date/Time of Note Date/Time of Note DATE: 12/17/16 TIME: 10:28 Assessment/Plan VTE Prophylaxis VTE Prophylaxis Intervention: LMWH Lines/Catheters IV Catheter Type (from [facility]): PICC Line Central line still needed: Yes Urinary Cath still in place: Yes Reason Cath still needed: other (indicate) Assessment/Plan Chief Complaint/Hosp Course ASSESSMENT AND PLAN: 1. Non-ST elevation myocardial infarction. The patient is status post left heart catheterization with a finding of multivessel coronary artery disease. Cardiothoracic surgeon consulted status post CABG, continue aspirin , Lovenox, statin and monitor blood pressure 2. Obstructive coronary artery disease as above. Cardiothoracic surgeon has been consulted. Status post CABG, continue medical management 3. Acute respiratory failure. Intubated on 12/09/2016, continue vent management, pulmonology has been consulted, plan to transition to CPAP and possible weaning from the vent today and possible extubation, continue breathing treatment 4. Essential hypertension, well controlled on medical management. 4. Dyslipidemia. Continue statin. 6. Major depression. Continue Cymbalta. 7. Diabetes mellitus. Continue Levemir, insulin sliding scale, low carb diet. Continue monitor and adjust accordingly 8. Diabetic neuropathy. Continue Lyrica. 9. Leukocytosis. Likely secondary to Solu-Medrol, continue vancomycin and Zosyn, negative blood culture, patient is afebrile 10. For deep venous thrombosis prophylaxis, continue Lovenox 11. For gastrointestinal prophylaxis, on proton pump inhibitor. We will continue to monitor patient closely. Further recommendations, management and treatment as per clinical course. Continue to monitor in ICU secondary to respiratory failure Problems: Subjective 24 Hr Interval Summary Free Text/Dictation Patient is intubated and not sedated She is requesting to be extubated Agitated Exam/Review of Systems Vital Signs Vitals Vital Signs Date Time Temp Pulse Resp B/P Pulse Ox O2 Delivery O2 Flow Rate FiO2 12/17/16 09:50 98 2.0 12/17/16 08:00 67 12/17/16 07:40 15 40 12/17/16 03:00 93/60 Mechanical Ventilator 12/17/16 00:00 98.5 Intake and Output 12/16/16 12/16/16 12/17/16 15:00 23:00 07:00 Intake Total 830.86 ml 582.96 ml 924 ml Output Total 730 ml 775 ml 525 ml Balance 100.86 ml -192.04 ml 399 ml Exam General: The patient is morbidly obese, mildly agitated HEENT: Atraumatic, normocephalic. The pupils are equal and round . Neck: Supple with full range of motion. Chest: Normal expansion of the thorax during inspiration, surgical site is dry and clean Lungs: Clear to auscultation bilaterally Heart: Normal S1-S2, Regular rhythm and rate. Abdomen: Soft , nontender, nondistended , bowel sounds are present. Extremities: Normal to inspection, no edema no cyanosis, surgical site is dry and clean Neurologic: Normal mental status,The patient is awake, alert Results Result Diagram: 12/17/16 0510 12/17/16 0510 Results 24 hrs Laboratory Tests Test 12/16/16 11:37 12/16/16 17:27 12/16/16 21:31 12/17/16 01:52 Bedside Glucose 145 128 172 153 Test 12/17/16 05:10 12/17/16 05:26 12/17/16 08:31 White Blood Count 20.6 H Red Blood Count 3.26 L Hemoglobin 9.7 L Hematocrit 29.5 L Mean Corpuscular Volume 90.5 Mean Corpuscular Hemoglobin 29.8 Mean Corpuscular Hemoglobin Concent 32.9 Red Cell Distribution Width 14.5 Platelet Count 373 Mean Platelet Volume 10.8 H Neutrophils % 90.3 H Lymphocytes % 3.4 L Monocytes % 3.4 Eosinophils % 0.0 Basophils % 0.1 Nucleated Red Blood Cells % 0.0 Neutrophils # 18.6 H Lymphocytes # 0.7 L Monocytes # 0.7 Eosinophils # 0.0 Basophils # 0.0 Nucleated Red Blood Cells # 0.0 Sodium Level 146 H Potassium Level 3.6 Chloride Level 105 Carbon Dioxide Level 32 H Anion Gap 13 Blood Urea Nitrogen 48 H Creatinine 0.74 Glucose Level 175 Calcium Level 7.5 L Magnesium Level 2.9 H Bedside Glucose 172 146 Medications Medications Current Medications Aspirin (Aspirin) 81 mg DAILY PO Last administered on 12/17/16t 08:19; Admin Dose 81 MG; Start 12/03/16 at 09:00 Al Hydrox/Mg Hydrox/Simethicone (Mag-Al Plus) 30 ml Q4H PRN PO GASTROINTESTINAL UPSET; Start 12/02/16 at 15:00 Ondansetron HCl (Zofran Inj) 4 mg Q4H PRN IV NAUSEA AND/OR VOMITING; Start at 15:00 Duloxetine HCl (Cymbalta) 20 mg DAILY PO Last administered on 12/17/16 08:20; Admin Dose 20 MG; Start 12/03/16 at 09:00 Ondansetron HCl (Zofran Tab) 4 mg Q6H PRN PO NAUSEA AND/OR VOMITING; Start at 15:00 Nitroglycerin (Nitroglycerin (Sl Tab) 0.4 Mg) 1 tab Q5M PRN SL CHEST PAIN; Start 12/02/16 at 15:00 Acetaminophen (Tylenol Tab) 650 mg Q6H PRN PO PAIN LEVEL 1-3 OR FEVER Last administered on 12/03/16 12:40; Admin Dose 650 MG; Start 12/02/16 at 15:00 Acetaminophen (Tylenol Supp) 650 mg Q6H PRN [place] PAIN LEVEL 1-3 OR FEVER Last administered on 12/05/16 03:52; Admin Dose 650 MG; Start 12/02/16 at 15:00 Docusate Sodium (Colace) 100 mg Q12H PRN PO CONSTIPATION; Start 12/02/16 at 15: 00 Miscellaneous Information 1 ea NOTE XX ; Start 12/02/16 at 18:30 Glucose (Glutose) 15 gm Q15M PRN PO DECREASED GLUCOSE; Start 12/02/16 at 18:30 Glucose (Glutose) 22.5 gm Q15M PRN PO DECREASED GLUCOSE; Start 12/02/16 at 18: 30 Dextrose (D50w Syringe) 25 ml Q15M PRN IV DECREASED GLUCOSE Last administered on 12/04/16 23:54; Admin Dose 25 ML; Start 12/02/16 at 18:30 Dextrose (D50w Syringe) 50 ml Q15M PRN IV DECREASED GLUCOSE; Start 12/02/16 at 18:30 Glucagon (Glucagen) 1 mg Q15M PRN IM DECREASED GLUCOSE; Start 12/02/16 at 18:30 Glucose (Glutose) 15 gm Q15M PRN BUCCAL DECREASED GLUCOSE; Start 12/02/16 at 18 :30 Atorvastatin Calcium 80 mg 80 mg HS PO Last administered on 12/16/16 21:33; Admin Dose 80 MG; Start 12/02/16 at 21:00 Nitroglycerin/ Dextrose (Nitroglycerin 50 Mg/D5W (Pmx)) 250 ml @ 1.5 mls/hr TITRATE IV ; Start 12/04/16 at 22:30 Pantoprazole (Protonix Iv) 40 mg DAILY@06 IV Last administered on 12/17/16 05: 30; Admin Dose 40 MG; Start 12/05/16 at 06:00 Miscellaneous Information Pt Diabetic. Pls ... ONCE XX ; Start 12/06/16 at 11:30 Dopamine HCl/ Sodium Chloride (NS) 250 ml @ 7.16 mls/hr TITRATE IV ; Start at 13:00 Metoprolol Tartrate (Lopressor) 25 mg BID PO Last administered on 12/16/16 09: 07; Admin Dose 25 MG; Start 12/07/16 at 21:00 Amiodarone HCl 200 mg 200 mg BID PO Last administered on 12/17/16 08:20; Admin Dose 200 MG; Start 12/08/16 at 09:30 Piperacillin Sod/ Tazobactam Sod 100 ml @ 200 mls/hr Q8 IVPB Last administered on 12/17/16 05:27; Admin Dose 200 MLS/HR; Start 12/08/16 at 14:00 Propofol 100 ml @ 2.865 mls/ hr Q12H IV Last administered on 12/17/16 07:09; Admin Dose 20.055 MLS/HR; Start 12/09/16 at 12:00 Fentanyl (Sublimaze) 100 ml @ 2.5 mls/hr TITRATE IV Last administered on 06:21; Admin Dose 3 MLS/HR; Start 12/09/16 at 12:00 Enoxaparin Sodium (Lovenox) 30 mg DAILY SC Last administered on 12/17/16 08:34 ; Admin Dose 30 MG; Start 12/10/16 at 11:00 Morphine Sulfate (morphine) 2 mg Q4H PRN IV PAIN LEVEL 4-6 Last administered on 12/11/16 22:58; Admin Dose 2 MG; Start 12/11/16 at 22:30 Insulin Aspart (Novolog Insulin Pen) NOVOLOG *MODERATE* ALGORI... Q6 SC Last administered on 12/17/16 05:36; Admin Dose 2 UNIT; Start 12/13/16 at 00:00 Montelukast Sodium (Singulair) 10 mg HS NGT Last administered on 12/16/16 21:33 ; Admin Dose 10 MG; Start 12/13/16 at 21:00 Lisinopril 2.5 mg 2.5 mg DAILY NGT Last administered on 12/17/16 08:19; Admin Dose 2.5 MG; Start 12/13/16 at 09:00 Vancomycin HCl (Vancocin) 250 ml @ 125 mls/hr Q12H IVPB Last administered on 01:51; Admin Dose 125 MLS/HR; Start 12/14/16 at 00:00 Furosemide (Lasix) 20 mg Q8 IV Last administered on 12/17/16 05:30; Admin Dose 20 MG; Start 12/13/16 at 14:00 IV Flush (NS 10 ml) 10 ml PRN PRN IV IV PROTOCOL; Start 12/14/16 at 17:30 Insulin Detemir (Levemir) 35 unit BID SC Last administered on 12/17/16 08:33; Admin Dose 35 UNIT; Start 12/15/16 at 21:00 Methylprednisolone Sodium Succinate (Solu-Medrol) 80 mg Q8 IV Last administered on 12/17/16 05:33; Admin Dose 80 MG; Start 12/15/16 at 14:00 Insulin Aspart (Novolog Insulin Pen) 8 unit Q8 SC Last administered on 05:35; Admin Dose 8 UNIT; Start 12/15/16 at 14:00 NAHUM BLAIR MD Dec 17, 2016 10:37
[2016-12-17] MEDS: POTASSIUM CHLORIDE 50 ML IVPB PRN (12:26)
--- NOTE | 2016-12-17 14:03 | PN ---
DATE: 12/17/2016 Mrs. Saavedra has been successfully extubated. She still remains critically ill in the intensive care unit. When speaking to her, she seems to be highly agitated and I spoke to her and told her that we have been in contact with her family, her son. She demanded I describe him, wanted to know where h e was at, why she could not speak to him right now. I did tell the patient's nurse to try and conta ct him and let him know that she wants to talk with him. Her understanding is poor of her current m edical condition, although at this time I think it is inappropriate to address that with her. She i s agitated, quality of life prior to hospitalization-please refer to my prior note. She had multipl e risk factors, continued to smoke. PHYSICAL EXAMINATION: VITAL SIGNS: Blood pressure 128/72, pulse of 90 and regular, respirations of 27, 94% saturation on 2 liters FIO2. HEENT: She is normocephalic and atraumatic. Anicteric, acyanotic. CHEST: Inspiratory and expiratory rhonchi on examination. CORONARY: Regular rate and rhythm. LABORATORY DATA: White blood cell count of 20.6, hemoglobin 9.7, hematocrit 29.5, MCV of 90.5, plat elet count of 373,000. Chemistry: Serum sodium 146, potassium 3.6, chloride 105, bicarbonate 32, B UN 48, creatinine 0.74. ASSESSMENT AND PLAN: Goals of care. Continue to support patient as much as possible. There appear s to be multiple psychosocial issues concerning her relationship with her family. I have asked her if she gives me permission to speak to her son, she adamantly refuses that. Prognosis remains guard ed. PPS 40. There is no pain issues at this time. Ethically she has psychosocial issues as noted ab ove. Code status is FULL CODE. POLST form will be addressed prior to discharge. Dictated By: JUAN ROACH MD, LP/[place] Conf#: [id number] DID#: [id number]
[2016-12-17] MEDS: ALBUTEROL/IPRATROPIUM (NEB) 3 ML AMP HHN SCH ×2 (14:46→19:44)
[2016-12-17] MEDS ORDERED: morphine 2 MG INJ IV PRN ×2 (15:30)
[2016-12-17] MEDS ORDERED: OXYCODONE/ACETAMINOPHEN (5/325) TAB PO PRN (15:30)
[2016-12-17] MEDS ORDERED: LORAZEPAM 2 MG INJ IV PRN (15:30)
--- NOTE | 2016-12-17 17:42 | CONS ---
Date/Time of Note Date/Time of Note DATE: 12/17/16 TIME: 17:40 Assessment/Plan Assessment/Plan Additional Assessment/Plan Non-ST elevation [place] Multivessel coronary artery disease status post CABG Cardiomyopathy with ejection fraction 50% Respiratory failure Acute decompensated systolic and diastolic congestive heart failure Paroxysmal atrial fibrillation, currently sinus Diabetes Active tobacco use -Patient extubated, chest x-ray with mildly increased pulmonary vascular congestion, continue IV diuresis as blood pressure and renal function permits. Continue aspirin and statin therapy, beta-blockers as heart rate and blood pressure permits. Consultation Date/Type/Reason Admit Date/Time Dec 02, 2016 at 17:14 Type of Consultation: cv 24 HR Interval Summary Free Text/Dictation Patient extubated, shortness of breath has improved, denies chest pain or palpitations Exam/Review of Systems Vital Signs Vitals Vital Signs Date Time Temp Pulse Resp B/P Pulse Ox O2 Delivery O2 Flow Rate FiO2 12/17/16 16:00 94 12/17/16 14:47 30 94 Nasal Cannula 2.0 12/17/16 11:00 128/72 12/17/16 08:00 98.5 12/17/16 07:40 40 Intake and Output 12/16/16 12/16/16 12/17/16 15:00 23:00 07:00 Intake Total 830.86 ml 582.96 ml 977 ml Output Total 730 ml 775 ml 675 ml Balance 100.86 ml -192.04 ml 302 ml Exam Following commands, becomes dyspneic with speaking Constitutional: alert Head: normocephalic Respiratory: other (Coarse breath sounds bilaterally, no wheezing) Cardiovascular: other (S1-S2 heard), regular rate and rhythm Gastrointestinal: bowel sounds, non-tender, other (No guarding), soft Extremities: edema (Trace), other (No cyanosis) Results Result Diagram: 12/17/16 0510 12/17/16 0510 Results 24 hrs Laboratory Tests Test 12/16/16 21:31 12/17/16 01:52 12/17/16 05:10 12/17/16 05:26 Bedside Glucose 172 153 172 White Blood Count 20.6 H Red Blood Count 3.26 L Hemoglobin 9.7 L Hematocrit 29.5 L Mean Corpuscular Volume 90.5 Mean Corpuscular Hemoglobin 29.8 Mean Corpuscular Hemoglobin Concent 32.9 Red Cell Distribution Width 14.5 Platelet Count 373 Mean Platelet Volume 10.8 H Neutrophils % 90.3 H Lymphocytes % 3.4 L Monocytes % 3.4 Eosinophils % 0.0 Basophils % 0.1 Nucleated Red Blood Cells % 0.0 Neutrophils # 18.6 H Lymphocytes # 0.7 L Monocytes # 0.7 Eosinophils # 0.0 Basophils # 0.0 Nucleated Red Blood Cells # 0.0 Sodium Level 146 H Potassium Level 3.6 Chloride Level 105 Carbon Dioxide Level 32 H Anion Gap 13 Blood Urea Nitrogen 48 H Creatinine 0.74 Glucose Level 175 Calcium Level 7.5 L Magnesium Level 2.9 H Test 12/17/16 08:31 12/17/16 12:08 12/17/16 15:15 Bedside Glucose 146 141 106 Medications Medications Current Medications Aspirin (Aspirin) 81 mg DAILY PO Last administered on 12/17/16 08:19; Admin Dose 81 MG; Start 12/03/16 at 09:00 Al Hydrox/Mg Hydrox/Simethicone (Mag-Al Plus) 30 ml Q4H PRN PO GASTROINTESTINAL UPSET; Start 12/02/16 at 15:00 Ondansetron HCl (Zofran Inj) 4 mg Q4H PRN IV NAUSEA AND/OR VOMITING; Start at 15:00 Duloxetine HCl (Cymbalta) 20 mg DAILY PO Last administered on 12/17/16 08:20; Admin Dose 20 MG; Start 12/03/16 at 09:00 Ondansetron HCl (Zofran Tab) 4 mg Q6H PRN PO NAUSEA AND/OR VOMITING; Start at 15:00 Nitroglycerin (Nitroglycerin (Sl Tab) 0.4 Mg) 1 tab Q5M PRN SL CHEST PAIN; Start 12/02/16 at 15:00 Acetaminophen (Tylenol Tab) 650 mg Q6H PRN PO PAIN LEVEL 1-3 OR FEVER Last administered on 12/03/16 12:40; Admin Dose 650 MG; Start 12/02/16 at 15:00 Acetaminophen (Tylenol Supp) 650 mg Q6H PRN [place] PAIN LEVEL 1-3 OR FEVER Last administered on 12/05/16 03:52; Admin Dose 650 MG; Start 12/02/16 at 15:00 Docusate Sodium (Colace) 100 mg Q12H PRN PO CONSTIPATION; Start 12/02/16 at 15: 00 Miscellaneous Information 1 ea NOTE XX ; Start 12/02/16 at 18:30 Glucose (Glutose) 15 gm Q15M PRN PO DECREASED GLUCOSE; Start 12/02/16 at 18:30 Glucose (Glutose) 22.5 gm Q15M PRN PO DECREASED GLUCOSE; Start 12/02/16 at 18: 30 Dextrose (D50w Syringe) 25 ml Q15M PRN IV DECREASED GLUCOSE Last administered on 12/04/16 23:54; Admin Dose 25 ML; Start 12/02/16 at 18:30 Dextrose (D50w Syringe) 50 ml Q15M PRN IV DECREASED GLUCOSE; Start 12/02/16 at 18:30 Glucagon (Glucagen) 1 mg Q15M PRN IM DECREASED GLUCOSE; Start 12/02/16 at 18:30 Glucose (Glutose) 15 gm Q15M PRN BUCCAL DECREASED GLUCOSE; Start 12/02/16 at 18 :30 Atorvastatin Calcium 80 mg 80 mg HS PO Last administered on 12/16/16 21:33; Admin Dose 80 MG; Start 12/02/16 at 21:00 Nitroglycerin/ Dextrose (Nitroglycerin 50 Mg/D5W (Pmx)) 250 ml @ 1.5 mls/hr TITRATE IV ; Start 12/04/16 at 22:30 Pantoprazole (Protonix Iv) 40 mg DAILY@06 IV Last administered on 12/17/16 05: 30; Admin Dose 40 MG; Start 12/05/16 at 06:00 Miscellaneous Information Pt Diabetic. Pls ... ONCE XX ; Start 12/06/16 at 11:30 Dopamine HCl/ Sodium Chloride (NS) 250 ml @ 7.16 mls/hr TITRATE IV ; Start at 13:00 Metoprolol Tartrate (Lopressor) 25 mg BID PO Last administered on 12/16/16 09: 07; Admin Dose 25 MG; Start 12/07/16 at 21:00 Amiodarone HCl 200 mg 200 mg BID PO Last administered on 12/17/16 08:20; Admin Dose 200 MG; Start 12/08/16 at 09:30 Piperacillin Sod/ Tazobactam Sod 100 ml @ 200 mls/hr Q8 IVPB Last administered on 12/17/16 15:18; Admin Dose 200 MLS/HR; Start 12/08/16 at 14:00 Propofol 100 ml @ 2.865 mls/ hr Q12H IV Last administered on 12/17/16 07:09; Admin Dose 20.055 MLS/HR; Start 12/09/16 at 12:00 Fentanyl (Sublimaze) 100 ml @ 2.5 mls/hr TITRATE IV Last administered on 06:21; Admin Dose 3 MLS/HR; Start 12/09/16 at 12:00 Enoxaparin Sodium (Lovenox) 30 mg DAILY SC Last administered on 12/17/16 08:34 ; Admin Dose 30 MG; Start 12/10/16 at 11:00 Insulin Aspart (Novolog Insulin Pen) NOVOLOG *MODERATE* ALGORI... Q6 SC Last administered on 12/17/16 12:09; Admin Dose 2 UNIT; Start 12/13/16 at 00:00 Montelukast Sodium (Singulair) 10 mg HS NGT Last administered on 12/16/16 21:33 ; Admin Dose 10 MG; Start 12/13/16 at 21:00 Lisinopril 2.5 mg 2.5 mg DAILY NGT Last administered on 12/17/16 08:19; Admin Dose 2.5 MG; Start 12/13/16 at 09:00 Vancomycin HCl (Vancocin) 250 ml @ 125 mls/hr Q12H IVPB Last administered on 12:10; Admin Dose 125 MLS/HR; Start 12/14/16 at 00:00 Furosemide (Lasix) 20 mg Q8 IV Last administered on 12/17/16 15:17; Admin Dose 20 MG; Start 12/13/16 at 14:00 IV Flush (NS 10 ml) 10 ml PRN PRN IV IV PROTOCOL; Start 12/14/16 at 17:30 Methylprednisolone Sodium Succinate (Solu-Medrol) 80 mg Q8 IV Last administered on 12/17/16 15:17; Admin Dose 80 MG; Start 12/15/16 at 14:00 Miscellaneous Information (*Rx Drug Level Order Reminder*) VANCO TROUGH @ 1, 000 ON... ONCE ONCE XX ; Start 12/18/16 at 10:00; Stop 12/18/16 at 10:01 Insulin Aspart (Novolog Insulin Pen) 5 unit Q8 SC ; Start 12/17/16 at 22:00 Insulin Detemir (Levemir) 30 unit BID@08,20 SC ; Start 12/17/16 at 20:00 Morphine Sulfate (morphine) 1 mg Q4H PRN IV PAIN LEVEL 4-7; Start 12/17/16 at 15 :30 Morphine Sulfate (morphine) 2 mg Q4H PRN IV PAIN LEVEL 8-10; Start 12/17/16 at 15:30 Oxycodone/ Acetaminophen (Percocet (5/ 325)) 1 tab Q4H PRN PO PAIN; Start at 15:30 Lorazepam (Ativan) 0.5 mg Q6H PRN IV ANXIETY; Start 12/17/16 at 15:30 Manuel Escudero DO Dec 17, 2016 17:42
[2016-12-17] MEDS: DEXTROSE 50% 50 ML SYRINGE IV PRN (18:28)
--- NOTE | 2016-12-17 19:50 | PN ---
Date/Time of Note Date/Time of Note DATE: 12/17/16 TIME: 19:48 Assessment/Plan VTE Prophylaxis VTE Prophylaxis Intervention: other Lines/Catheters IV Catheter Type (from Nrs): Central line still needed: No Urinary Cath still in place: Yes Reason Cath still needed: urinary retention, other (indicate) Assessment/Plan Chief Complaint/Hosp Course IMPRESSION: 1. Coronary artery disease. 2. Status post myocardial infarction. 3. Hepatitis C, by report. 4 Hx IVDU SP CABG PNA Hemodynamically stable ABX Extubated follow Pulm recc may need tracheostomy Problems: Subjective 24 Hr Interval Summary Gastrointestinal: no complaints Genitourinary: no complaints Musculoskeletal: no complaints Skin: no complaints Exam/Review of Systems Vital Signs Vitals Vital Signs Date Time Temp Pulse Resp B/P Pulse Ox O2 Delivery O2 Flow Rate FiO2 12/17/16 19:47 93 2.0 12/17/16 19:45 88 27 Nasal Cannula 12/17/16 18:00 114/63 12/17/16 16:00 98.9 12/17/16 07:40 40 Intake and Output 12/16/16 12/16/16 12/17/16 15:00 23:00 07:00 Intake Total 830.86 ml 582.96 ml 977 ml Output Total 730 ml 775 ml 675 ml Balance 100.86 ml -192.04 ml 302 ml Exam Neck: non-tender, supple Respiratory: clear to auscultation, normal air movement Cardiovascular: nl pulses, regular rate and rhythm Results Result Diagram: 12/17/16 0510 12/17/16 0510 Results 24 hrs Laboratory Tests Test 12/16/16 21:31 12/17/16 01:52 12/17/16 05:10 12/17/16 05:26 Bedside Glucose 172 153 172 White Blood Count 20.6 H Red Blood Count 3.26 L Hemoglobin 9.7 L Hematocrit 29.5 L Mean Corpuscular Volume 90.5 Mean Corpuscular Hemoglobin 29.8 Mean Corpuscular Hemoglobin Concent 32.9 Red Cell Distribution Width 14.5 Platelet Count 373 Mean Platelet Volume 10.8 H Neutrophils % 90.3 H Lymphocytes % 3.4 L Monocytes % 3.4 Eosinophils % 0.0 Basophils % 0.1 Nucleated Red Blood Cells % 0.0 Neutrophils # 18.6 H Lymphocytes # 0.7 L Monocytes # 0.7 Eosinophils # 0.0 Basophils # 0.0 Nucleated Red Blood Cells # 0.0 Sodium Level 146 H Potassium Level 3.6 Chloride Level 105 Carbon Dioxide Level 32 H Anion Gap 13 Blood Urea Nitrogen 48 H Creatinine 0.74 Glucose Level 175 Calcium Level 7.5 L Magnesium Level 2.9 H Test 12/17/16 08:31 12/17/16 12:08 12/17/16 15:15 12/17/16 18:26 Bedside Glucose 146 141 106 54 L Test 12/17/16 18:51 Bedside Glucose 103 Medications Medications Current Medications Aspirin (Aspirin) 81 mg DAILY PO Last administered on 12/17/16 08:19; Admin Dose 81 MG; Start 12/03/16 at 09:00 Al Hydrox/Mg Hydrox/Simethicone (Mag-Al Plus) 30 ml Q4H PRN PO GASTROINTESTINAL UPSET; Start 12/02/16 at 15:00 Ondansetron HCl (Zofran Inj) 4 mg Q4H PRN IV NAUSEA AND/OR VOMITING; Start at 15:00 Duloxetine HCl (Cymbalta) 20 mg DAILY PO Last administered on 12/17/16 08:20; Admin Dose 20 MG; Start 12/03/16 at 09:00 Ondansetron HCl (Zofran Tab) 4 mg Q6H PRN PO NAUSEA AND/OR VOMITING; Start at 15:00 Nitroglycerin (Nitroglycerin (Sl Tab) 0.4 Mg) 1 tab Q5M PRN SL CHEST PAIN; Start 12/02/16 at 15:00 Acetaminophen (Tylenol Tab) 650 mg Q6H PRN PO PAIN LEVEL 1-3 OR FEVER Last administered on 12/03/16 12:40; Admin Dose 650 MG; Start 12/02/16 at 15:00 Acetaminophen (Tylenol Supp) 650 mg Q6H PRN [place] PAIN LEVEL 1-3 OR FEVER Last administered on 12/05/16 03:52; Admin Dose 650 MG; Start 12/02/16 at 15:00 Docusate Sodium (Colace) 100 mg Q12H PRN PO CONSTIPATION; Start 12/02/16 at 15: 00 Miscellaneous Information 1 ea NOTE XX ; Start 12/02/16 at 18:30 Glucose (Glutose) 15 gm Q15M PRN PO DECREASED GLUCOSE; Start 12/02/16 at 18:30 Glucose (Glutose) 22.5 gm Q15M PRN PO DECREASED GLUCOSE; Start 12/02/16 at 18: 30 Dextrose (D50w Syringe) 25 ml Q15M PRN IV DECREASED GLUCOSE Last administered on 12/17/16 18:28; Admin Dose 25 ML; Start 12/02/16 at 18:30 Dextrose (D50w Syringe) 50 ml Q15M PRN IV DECREASED GLUCOSE; Start 12/02/16 at 18:30 Glucagon (Glucagen) 1 mg Q15M PRN IM DECREASED GLUCOSE; Start 12/02/16 at 18:30 Glucose (Glutose) 15 gm Q15M PRN BUCCAL DECREASED GLUCOSE; Start 12/02/16 at 18 :30 Atorvastatin Calcium 80 mg 80 mg HS PO Last administered on 12/16/16 21:33; Admin Dose 80 MG; Start 12/02/16 at 21:00 Nitroglycerin/ Dextrose (Nitroglycerin 50 Mg/D5W (Pmx)) 250 ml @ 1.5 mls/hr TITRATE IV ; Start 12/04/16 at 22:30 Pantoprazole (Protonix Iv) 40 mg DAILY@06 IV Last administered on 12/17/16 05: 30; Admin Dose 40 MG; Start 12/05/16 at 06:00 Miscellaneous Information Pt Diabetic. Pls ... ONCE XX ; Start 12/06/16 at 11:30 Dopamine HCl/ Sodium Chloride (NS) 250 ml @ 7.16 mls/hr TITRATE IV ; Start at 13:00 Metoprolol Tartrate (Lopressor) 25 mg BID PO Last administered on 12/16/16 09: 07; Admin Dose 25 MG; Start 12/07/16 at 21:00 Amiodarone HCl 200 mg 200 mg BID PO Last administered on 12/17/16 08:20; Admin Dose 200 MG; Start 12/08/16 at 09:30 Piperacillin Sod/ Tazobactam Sod 100 ml @ 200 mls/hr Q8 IVPB Last administered on 12/17/16 15:18; Admin Dose 200 MLS/HR; Start 12/08/16 at 14:00 Propofol 100 ml @ 2.865 mls/ hr Q12H IV Last administered on 12/17/16 07:09; Admin Dose 20.055 MLS/HR; Start 12/09/16 at 12:00 Fentanyl (Sublimaze) 100 ml @ 2.5 mls/hr TITRATE IV Last administered on 06:21; Admin Dose 3 MLS/HR; Start 12/09/16 at 12:00 Enoxaparin Sodium (Lovenox) 30 mg DAILY SC Last administered on 12/17/16 08:34 ; Admin Dose 30 MG; Start 12/10/16 at 11:00 Insulin Aspart (Novolog Insulin Pen) NOVOLOG *MODERATE* ALGORI... Q6 SC Last administered on 12/17/16 12:09; Admin Dose 2 UNIT; Start 12/13/16 at 00:00 Montelukast Sodium (Singulair) 10 mg HS NGT Last administered on 12/16/16 21:33 ; Admin Dose 10 MG; Start 12/13/16 at 21:00 Lisinopril 2.5 mg 2.5 mg DAILY NGT Last administered on 12/17/16 08:19; Admin Dose 2.5 MG; Start 12/13/16 at 09:00 Vancomycin HCl (Vancocin) 250 ml @ 125 mls/hr Q12H IVPB Last administered on 12:10; Admin Dose 125 MLS/HR; Start 12/14/16 at 00:00 Furosemide (Lasix) 20 mg Q8 IV Last administered on 12/17/16 15:17; Admin Dose 20 MG; Start 12/13/16 at 14:00 IV Flush (NS 10 ml) 10 ml PRN PRN IV IV PROTOCOL; Start 12/14/16 at 17:30 Methylprednisolone Sodium Succinate (Solu-Medrol) 80 mg Q8 IV Last administered on 12/17/16 15:17; Admin Dose 80 MG; Start 12/15/16 at 14:00 Miscellaneous Information (*Rx Drug Level Order Reminder*) VANCO TROUGH @ 1, 000 ON... ONCE ONCE XX ; Start 12/18/16 at 10:00; Stop 12/18/16 at 10:01 Insulin Aspart (Novolog Insulin Pen) 5 unit Q8 SC ; Start 12/17/16 at 22:00 Insulin Detemir (Levemir) 30 unit BID@08,20 SC ; Start 12/17/16 at 20:00 Morphine Sulfate (morphine) 1 mg Q4H PRN IV PAIN LEVEL 4-7; Start 12/17/16 at 15 :30 Morphine Sulfate (morphine) 2 mg Q4H PRN IV PAIN LEVEL 8-10; Start 12/17/16 at 15:30 Oxycodone/ Acetaminophen (Percocet (5/ 325)) 1 tab Q4H PRN PO PAIN; Start at 15:30 Lorazepam (Ativan) 0.5 mg Q6H PRN IV ANXIETY; Start 12/17/16 at 15:30 RENETTA WATSON MD Dec 17, 2016 19:50
[2016-12-17] MEDS: MONTELUKAST 10 MG TAB NGT SCH (20:16)
[2016-12-17] MEDS: ATORVASTATIN 80 MG TAB PO SCH (20:16)
[2016-12-17] MEDS: DEXTROSE 10% 1,000 ML IV SCH (22:33)
[2016-12-18] VITALS (22 sets, daily range): BP systolic 104–140; BP diastolic 52–98; PULSE 84–96; RESP 17–31
[2016-12-18] MEDS: VANCOMYCIN 1 GM in NS 250 ML IVPB SCH ×2 (01:06→12:50)
[2016-12-18] MEDS: ALBUTEROL/IPRATROPIUM (NEB) 3 ML AMP HHN SCH ×4 (02:00→20:06)
[2016-12-18] MEDS: INSULIN ASPART [NOVOLOG] 3 ML PEN SC SCH ×5 (06:00→17:50)
[2016-12-18] MEDS: PANTOPRAZOLE 40 MG INJ IV SCH (06:40)
[2016-12-18] MEDS: PIPER-TAZO 3.375 GM IV (PMX) 100 ML IVPB SCH ×3 (06:40→21:39)
[2016-12-18] MEDS: METHYLPREDNISOLONE 125 MG INJ IV SCH (06:40)
[2016-12-18] MEDS: FUROSEMIDE 20 MG INJ IV SCH (06:40)
[2016-12-18 06:41] LABS: ADD SCAN DIFF NO
[2016-12-18 06:46] LABS: BASOPHILS % 0.2 % (0.0-2.0); EOSINOPHILS % 0.1 % (0.0-7.0); HEMATOCRIT 31.9 % (37.0-47.0); HEMOGLOBIN 10.5 g/dl (12.0-16.0); LYMPHOCYTES # 0.8 10^3/ul (0.8-2.9); MEAN CORPUSCULAR HEMOGLOBIN 29.7 pg (29.0-33.0); MEAN CORPUSCULAR HGB CONC 32.9 g/dl (32.0-37.0); MEAN CORPUSCULAR VOLUME 90.1 fl (82.0-101.0); MEAN PLATELET VOLUME 10.8 fl (7.4-10.4); MONOCYTE # 0.8 10^3/ul (0.3-0.9); MONOCYTES % 4.2 % (0.0-11.0); NEUTROPHIL # 17.4 10^3/ul (1.6-7.5); NEUTROPHILS % 87.7 % (39.0-77.0); NUCLEATED RED BLOOD CELLS% 0.1 /100WBC (0.0-0.0); PLATELET COUNT 342 10^3/UL (140-415); RED BLOOD COUNT 3.54 10^6/ul (4.20-5.40); RED CELL DISTRIBUTION WIDTH 14.4 % (11.5-14.5); WHITE BLOOD COUNT 19.8 10^3/ul (4.8-10.8)
[2016-12-18 06:59] LABS: POTASSIUM 3.5 mmol/L (3.5-5.1)
[2016-12-18 07:01] LABS: CREATININE 0.75 mg/dl (0.44-1.00)
[2016-12-18 07:02] LABS: CALCIUM 7.8 mg/dl (8.4-10.2)
[2016-12-18] MEDS: INSULIN DETEMIR [LEVEMIR] 3ML CART SC SCH ×2 (08:00→21:15)
[2016-12-18] MEDS: POTASSIUM CHLORIDE 50 ML IVPB PRN ×2 (08:53→10:55)
--- NOTE | 2016-12-18 09:32 | RADRPT ---
PROCEDURE: XR Chest. CLINICAL INDICATION: Shortness of breath. TECHNIQUE: Single frontal view. COMPARISON: 12/17/2016. FINDINGS: The endotracheal tube and nasogastric tube have been removed. Left arm PICC line remains in satisfa ctory position with the tip in the superior vena cava. There is bilateral air space disease and int erstitial disease consistent with pulmonary edema, worse than seen previously. Left basilar atelect asis is worse than seen previously. The heart is enlarged. There are sternal wires and mediastinal clips. There are small bilateral pleural effusions. There is no pneumothorax. IMPRESSION: 1. Worse appearance of the lungs. 2. Endotracheal tube and nasogastric tube removed. 3. No other change from 12/17/2016. RPTAT: QQ .Sly Hollis MD, Date Time Electronically viewed and signed by .Sly Hollis MD, on 12/18/2016 09:32 .R/
--- NOTE | 2016-12-18 10:22 | CONS ---
Date/Time of Note Date/Time of Note DATE: 12/18/16 TIME: 10:20 Consult Date/Type/Reason Admit Date/Time Dec 02, 2016 at 17:14 Initial Consult Date 12/05/16 Type of Consultation: pulmonary ICU Subjective Patient extubated yesterday awake alert oriented this morning Mild sore throat but otherwise able to communicate Currently he remains hemodynamically stable Tolerating BiPAP overnight Objective Vital Signs Date Time Temp Pulse Resp B/P Pulse Ox O2 Delivery O2 Flow Rate FiO2 12/18/16 08:00 84 12/18/16 07:30 98.4 26 108/60 95 BIPAP 4.0 Nasal Cannula 12/18/16 06:28 50 Intake and Output 12/17/16 12/17/16 12/18/16 15:00 23:00 07:00 Intake Total 53 ml 170 ml 510 ml Output Total 675 ml 1500 ml 925 ml Balance -622 ml -1330 ml -415 ml Exam GENERAL: Well-nourished well-developed lady comfortable at rest talking in full and complete sentences VITAL SIGNS: per chart NECK: Supple. No JVD or lymphadenopathy. CARDIAC EXAM: S1, S2. No added sounds or murmurs. CHEST: Diminished air entry both lung bases few rales ABDOMEN: Soft, nontender. No guarding or rebound. EXTREMITIES: No cyanosis, clubbing edema +1 NEUROLOGIC: Generalized weakness. No focal deficits. Results/Medications Result Diagram: 12/18/16 0620 12/18/16 0620 Results 24 hrs Laboratory Tests Test 12/17/16 12:08 12/17/16 15:15 12/17/16 18:26 12/17/16 18:51 Bedside Glucose 141 106 54 L 103 Test 12/17/16 20:43 12/17/16 22:45 12/18/16 01:07 12/18/16 06:20 Bedside Glucose 74 82 86 White Blood Count 19.8 H Red Blood Count 3.54 L Hemoglobin 10.5 L Hematocrit 31.9 L Mean Corpuscular Volume 90.1 Mean Corpuscular Hemoglobin 29.7 Mean Corpuscular Hemoglobin Concent 32.9 Red Cell Distribution Width 14.4 Platelet Count 342 Mean Platelet Volume 10.8 H Neutrophils % 87.7 H Lymphocytes % 4.0 L Monocytes % 4.2 Eosinophils % 0.1 Basophils % 0.2 Nucleated Red Blood Cells % 0.1 H Neutrophils # 17.4 H Lymphocytes # 0.8 Monocytes # 0.8 Eosinophils # 0.0 Basophils # 0.0 Nucleated Red Blood Cells # 0.0 Sodium Level 148 H Potassium Level 3.5 Chloride Level 107 Carbon Dioxide Level 32 H Anion Gap 13 Blood Urea Nitrogen 42 H Creatinine 0.75 Glucose Level 109 # Calcium Level 7.8 L Test 12/18/16 06:31 12/18/16 08:50 Bedside Glucose 107 119 Medications Current Medications Aspirin (Aspirin) 81 mg DAILY PO Last administered on 12/17/16 08:19; Admin Dose 81 MG; Start 12/03/16 at 09:00 Al Hydrox/Mg Hydrox/Simethicone (Mag-Al Plus) 30 ml Q4H PRN PO GASTROINTESTINAL UPSET; Start 12/02/16 at 15:00 Ondansetron HCl (Zofran Inj) 4 mg Q4H PRN IV NAUSEA AND/OR VOMITING; Start at 15:00 Duloxetine HCl (Cymbalta) 20 mg DAILY PO Last administered on 12/17/16 08:20; Admin Dose 20 MG; Start 12/03/16 at 09:00 Ondansetron HCl (Zofran Tab) 4 mg Q6H PRN PO NAUSEA AND/OR VOMITING; Start at 15:00 Nitroglycerin (Nitroglycerin (Sl Tab) 0.4 Mg) 1 tab Q5M PRN SL CHEST PAIN; Start 12/02/16 at 15:00 Acetaminophen (Tylenol Tab) 650 mg Q6H PRN PO PAIN LEVEL 1-3 OR FEVER Last administered on 12/03/16 12:40; Admin Dose 650 MG; Start 12/02/16 at 15:00 Acetaminophen (Tylenol Supp) 650 mg Q6H PRN [place] PAIN LEVEL 1-3 OR FEVER Last administered on 12/05/16 03:52; Admin Dose 650 MG; Start 12/02/16 at 15:00 Docusate Sodium (Colace) 100 mg Q12H PRN PO CONSTIPATION; Start 12/02/16 at 15: 00 Miscellaneous Information 1 ea NOTE XX ; Start 12/02/16 at 18:30 Glucose (Glutose) 15 gm Q15M PRN PO DECREASED GLUCOSE; Start 12/02/16 at 18:30 Glucose (Glutose) 22.5 gm Q15M PRN PO DECREASED GLUCOSE; Start 12/02/16 at 18: 30 Dextrose (D50w Syringe) 25 ml Q15M PRN IV DECREASED GLUCOSE Last administered on 12/17/16 18:28; Admin Dose 25 ML; Start 12/02/16 at 18:30 Dextrose (D50w Syringe) 50 ml Q15M PRN IV DECREASED GLUCOSE; Start 12/02/16 at 18:30 Glucagon (Glucagen) 1 mg Q15M PRN IM DECREASED GLUCOSE; Start 12/02/16 at 18:30 Glucose (Glutose) 15 gm Q15M PRN BUCCAL DECREASED GLUCOSE; Start 12/02/16 at 18 :30 Atorvastatin Calcium 80 mg 80 mg HS PO Last administered on 12/16/16 21:33; Admin Dose 80 MG; Start 12/02/16 at 21:00 Nitroglycerin/ Dextrose (Nitroglycerin 50 Mg/D5W (Pmx)) 250 ml @ 1.5 mls/hr TITRATE IV ; Start 12/04/16 at 22:30 Pantoprazole (Protonix Iv) 40 mg DAILY@06 IV Last administered on 12/18/16 06: 40; Admin Dose 40 MG; Start 12/05/16 at 06:00 Miscellaneous Information Pt Diabetic. Pls ... ONCE XX ; Start 12/06/16 at 11:30 Dopamine HCl/ Sodium Chloride (NS) 250 ml @ 7.16 mls/hr TITRATE IV ; Start at 13:00 Metoprolol Tartrate (Lopressor) 25 mg BID PO Last administered on 12/16/16 09: 07; Admin Dose 25 MG; Start 12/07/16 at 21:00 Amiodarone HCl 200 mg 200 mg BID PO Last administered on 12/17/16 08:20; Admin Dose 200 MG; Start 12/08/16 at 09:30 Piperacillin Sod/ Tazobactam Sod 100 ml @ 200 mls/hr Q8 IVPB Last administered on 12/18/16 06:40; Admin Dose 200 MLS/HR; Start 12/08/16 at 14:00 Propofol 100 ml @ 2.865 mls/ hr Q12H IV Last administered on 12/17/16 07:09; Admin Dose 20.055 MLS/HR; Start 12/09/16 at 12:00 Fentanyl (Sublimaze) 100 ml @ 2.5 mls/hr TITRATE IV Last administered on 06:21; Admin Dose 3 MLS/HR; Start 12/09/16 at 12:00 Enoxaparin Sodium (Lovenox) 30 mg DAILY SC Last administered on 12/17/16 08:34 ; Admin Dose 30 MG; Start 12/10/16 at 11:00 Insulin Aspart (Novolog Insulin Pen) NOVOLOG *MODERATE* ALGORI... Q6 SC Last administered on 12/17/16 12:09; Admin Dose 2 UNIT; Start 12/13/16 at 00:00 Montelukast Sodium (Singulair) 10 mg HS NGT Last administered on 12/16/16 21:33 ; Admin Dose 10 MG; Start 12/13/16 at 21:00 Lisinopril 2.5 mg 2.5 mg DAILY NGT Last administered on 12/17/16 08:19; Admin Dose 2.5 MG; Start 12/13/16 at 09:00 Vancomycin HCl (Vancocin) 250 ml @ 125 mls/hr Q12H IVPB Last administered on 01:06; Admin Dose 125 MLS/HR; Start 12/14/16 at 00:00 Furosemide (Lasix) 20 mg Q8 IV Last administered on 12/18/16 06:40; Admin Dose 20 MG; Start 12/13/16 at 14:00 IV Flush (NS 10 ml) 10 ml PRN PRN IV IV PROTOCOL; Start 12/14/16 at 17:30 Methylprednisolone Sodium Succinate (Solu-Medrol) 80 mg Q8 IV Last administered on 12/18/16 06:40; Admin Dose 80 MG; Start 12/15/16 at 14:00 Miscellaneous Information (*Rx Drug Level Order Reminder*) VANCO TROUGH @ 1, 100 ON... ONCE ONCE XX ; Start 12/18/16 at 11:00; Stop 12/18/16 at 11:01 Insulin Aspart (Novolog Insulin Pen) 5 unit Q8 SC Last administered on 06:47; Admin Dose 5 UNIT; Start 12/17/16 at 22:00 Insulin Detemir (Levemir) 30 unit BID@08,20 SC ; Start 12/17/16 at 20:00 Morphine Sulfate (morphine) 1 mg Q4H PRN IV PAIN LEVEL 4-7; Start 12/17/16 at 15 :30 Morphine Sulfate (morphine) 2 mg Q4H PRN IV PAIN LEVEL 8-10; Start 12/17/16 at 15:30 Oxycodone/ Acetaminophen (Percocet (5/ 325)) 1 tab Q4H PRN PO PAIN; Start at 15:30 Lorazepam 0.5 mg 0.5 mg Q6H PRN IV ANXIETY; Start 12/17/16 at 15:30 Dextrose (D10w) 1,000 ml @ 20 mls/hr Q24H IV Last administered on 12/17/16t 22: 33; Admin Dose 20 MLS/HR; Start 12/17/16 at 21:00 Assessment/Plan Chief Complaint/Hosp Course Assessment 1. Non-ST elevation [place] with multivessel coronary artery disease 2. Status post coronary artery bypass graft 3. History of hypertension 4. History of diabetes 5. History of chronic pain on MS Contin 6. Postoperative leukocytosis concerning for underlying infection, possibly worsened by steroids 7. Status post hypoxemic respiratory failure likely secondary to volume overload Plan 1. Continue incentive spirometry encourage out of bed 2. Will increase diuretics changed from Lasix to Bumex 3. Broad-spectrum antibiotics 4. Pain management consult 5. DVT and GI prophylaxis 6. Decrease steroids 7. Encourage nocturnal noninvasive positive pressure ventilation Disposition Continue intensive care monitoring Problems: JEFE AGEE MD, [facility] Dec 18, 2016 10:21
--- NOTE | 2016-12-18 10:33 | PN ---
Date/Time of Note Date/Time of Note DATE: 12/18/16 TIME: 10:22 Assessment/Plan VTE Prophylaxis VTE Prophylaxis Intervention: LMWH Lines/Catheters IV Catheter Type (from Nrs): PICC Line Central line still needed: Yes Urinary Cath still in place: Yes Reason Cath still needed: other (indicate) Assessment/Plan Chief Complaint/Hosp Course ASSESSMENT AND PLAN: 1. Non-ST elevation myocardial infarction. The patient is status post left heart catheterization with a finding of multivessel coronary artery disease. Cardiothoracic surgeon consulted status post CABG, continue aspirin , Lovenox, statin and monitor blood pressure 2. Obstructive coronary artery disease as above. Cardiothoracic surgeon has been consulted. Status post CABG, continue medical management 3. Acute respiratory failure. Intubated on 12/09/2016, extubated on 2016 pulmonology has been consulted, continue breathing treatment, respiratory therapy management appreciated 4. Essential hypertension, well controlled on medical management. 4. Dyslipidemia. Continue statin. 6. Major depression. Continue Cymbalta. 7. Diabetes mellitus. Continue Levemir, insulin sliding scale, low carb diet. Continue monitor and adjust accordingly 8. Diabetic neuropathy. Continue Lyrica. 9. Leukocytosis. Likely secondary to Solu-Medrol, continue vancomycin and Zosyn, negative blood culture, patient is afebrile 10. For deep venous thrombosis prophylaxis, continue Lovenox 11. For gastrointestinal prophylaxis, on proton pump inhibitor. We will continue to monitor patient closely. Further recommendations, management and treatment as per clinical course. Transferred to telemetry floor Problems: Subjective 24 Hr Interval Summary Free Text/Dictation Patient was extubated on 12/17/2016 Patient nephew came to the bedside yesterday and demanded that patient to leave the hospital AGAINST MEDICAL ADVICE. room service supervisor, security specialistextension supervisor nurse along with attending was at the bedside and patient's psychologist was called and she was able to come to the hospital and speak to Ms. Saavedra to change her mind regarding leaving the hospital. On 12/17/2016 post extubation patient was awake and alert but not able to make decisions and was influenced by her nephew regarding her care and wanted to leave AGAINST MEDICAL ADVICE. Fortunately she decided to stay and remain in ICU for another 2 hours which at this time patient is awake alert oriented. She denies of any chest pain or shortness of breath. Awaiting for physical therapy and speech therapy Exam/Review of Systems Vital Signs Vitals Vital Signs Date Time Temp Pulse Resp B/P Pulse Ox O2 Delivery O2 Flow Rate FiO2 12/18/16 08:00 84 12/18/16 07:30 98.4 26 108/60 95 BIPAP 4.0 Nasal Cannula 12/18/16 06:28 50 Intake and Output 12/17/16 12/17/16 12/18/16 15:00 23:00 07:00 Intake Total 53 ml 170 ml 510 ml Output Total 675 ml 1500 ml 925 ml Balance -622 ml -1330 ml -415 ml Exam General: The patient is well-developed, Not in acute distress. HEENT: Atraumatic, normocephalic. The pupils are equal and round . Neck: Supple with full range of motion. Chest: Normal, surgical site is dry and clean Lungs: Clear to auscultation bilaterally Heart: Normal S1-S2, Regular rhythm and rate. Abdomen: Soft , nontender, nondistended , bowel sounds are present. Extremities: Normal to inspection, no edema no cyanosis, surgical site is dry and clean Neurologic: Normal mental status,The patient is awake, alert and oriented . Results Result Diagram: 12/18/16 0620 12/18/16 0620 Results 24 hrs Laboratory Tests Test 12/17/16 12:08 12/17/16 15:15 12/17/16 18:26 12/17/16 18:51 Bedside Glucose 141 106 54 L 103 Test 12/17/16 20:43 12/17/16 22:45 12/18/16 01:07 12/18/16 06:20 Bedside Glucose 74 82 86 White Blood Count 19.8 H Red Blood Count 3.54 L Hemoglobin 10.5 L Hematocrit 31.9 L Mean Corpuscular Volume 90.1 Mean Corpuscular Hemoglobin 29.7 Mean Corpuscular Hemoglobin Concent 32.9 Red Cell Distribution Width 14.4 Platelet Count 342 Mean Platelet Volume 10.8 H Neutrophils % 87.7 H Lymphocytes % 4.0 L Monocytes % 4.2 Eosinophils % 0.1 Basophils % 0.2 Nucleated Red Blood Cells % 0.1 H Neutrophils # 17.4 H Lymphocytes # 0.8 Monocytes # 0.8 Eosinophils # 0.0 Basophils # 0.0 Nucleated Red Blood Cells # 0.0 Sodium Level 148 H Potassium Level 3.5 Chloride Level 107 Carbon Dioxide Level 32 H Anion Gap 13 Blood Urea Nitrogen 42 H Creatinine 0.75 Glucose Level 109 # Calcium Level 7.8 L Test 12/18/16 06:31 12/18/16 08:50 Bedside Glucose 107 119 Medications Medications Current Medications Aspirin (Aspirin) 81 mg DAILY PO Last administered on 12/17/16 08:19; Admin Dose 81 MG; Start 12/03/16 at 09:00 Al Hydrox/Mg Hydrox/Simethicone (Mag-Al Plus) 30 ml Q4H PRN PO GASTROINTESTINAL UPSET; Start 12/02/16 at 15:00 Ondansetron HCl (Zofran Inj) 4 mg Q4H PRN IV NAUSEA AND/OR VOMITING; Start at 15:00 Duloxetine HCl (Cymbalta) 20 mg DAILY PO Last administered on 12/17/16 08:20; Admin Dose 20 MG; Start 12/03/16 at 09:00 Ondansetron HCl (Zofran Tab) 4 mg Q6H PRN PO NAUSEA AND/OR VOMITING; Start at 15:00 Nitroglycerin (Nitroglycerin (Sl Tab) 0.4 Mg) 1 tab Q5M PRN SL CHEST PAIN; Start 12/02/16 at 15:00 Acetaminophen (Tylenol Tab) 650 mg Q6H PRN PO PAIN LEVEL 1-3 OR FEVER Last administered on 12/03/16 12:40; Admin Dose 650 MG; Start 12/02/16 at 15:00 Acetaminophen (Tylenol Supp) 650 mg Q6H PRN [place] PAIN LEVEL 1-3 OR FEVER Last administered on 12/05/16 03:52; Admin Dose 650 MG; Start 12/02/16 at 15:00 Docusate Sodium (Colace) 100 mg Q12H PRN PO CONSTIPATION; Start 12/02/16 at 15: 00 Miscellaneous Information 1 ea NOTE XX ; Start 12/02/16 at 18:30 Glucose (Glutose) 15 gm Q15M PRN PO DECREASED GLUCOSE; Start 12/02/16 at 18:30 Glucose (Glutose) 22.5 gm Q15M PRN PO DECREASED GLUCOSE; Start 12/02/16 at 18: 30 Dextrose (D50w Syringe) 25 ml Q15M PRN IV DECREASED GLUCOSE Last administered on 12/17/16 18:28; Admin Dose 25 ML; Start 12/02/16 at 18:30 Dextrose (D50w Syringe) 50 ml Q15M PRN IV DECREASED GLUCOSE; Start 12/02/16 at 18:30 Glucagon (Glucagen) 1 mg Q15M PRN IM DECREASED GLUCOSE; Start 12/02/16 at 18:30 Glucose (Glutose) 15 gm Q15M PRN BUCCAL DECREASED GLUCOSE; Start 12/02/16 at 18 :30 Atorvastatin Calcium 80 mg 80 mg HS PO Last administered on 12/16/16 21:33; Admin Dose 80 MG; Start 12/02/16 at 21:00 Nitroglycerin/ Dextrose (Nitroglycerin 50 Mg/D5W (Pmx)) 250 ml @ 1.5 mls/hr TITRATE IV ; Start 12/04/16 at 22:30 Pantoprazole (Protonix Iv) 40 mg DAILY@06 IV Last administered on 12/18/16 06: 40; Admin Dose 40 MG; Start 12/05/16 at 06:00 Miscellaneous Information Pt Diabetic. Pls ... ONCE XX ; Start 12/06/16 at 11:30 Dopamine HCl/ Sodium Chloride (NS) 250 ml @ 7.16 mls/hr TITRATE IV ; Start at 13:00 Metoprolol Tartrate (Lopressor) 25 mg BID PO Last administered on 12/16/16 09: 07; Admin Dose 25 MG; Start 12/07/16 at 21:00 Amiodarone HCl 200 mg 200 mg BID PO Last administered on 12/17/16 08:20; Admin Dose 200 MG; Start 12/08/16 at 09:30 Piperacillin Sod/ Tazobactam Sod 100 ml @ 200 mls/hr Q8 IVPB Last administered on 12/18/16 06:40; Admin Dose 200 MLS/HR; Start 12/08/16 at 14:00 Propofol 100 ml @ 2.865 mls/ hr Q12H IV Last administered on 12/17/16 07:09; Admin Dose 20.055 MLS/HR; Start 12/09/16 at 12:00 Fentanyl (Sublimaze) 100 ml @ 2.5 mls/hr TITRATE IV Last administered on 06:21; Admin Dose 3 MLS/HR; Start 12/09/16 at 12:00 Enoxaparin Sodium (Lovenox) 30 mg DAILY SC Last administered on 12/17/16 08:34 ; Admin Dose 30 MG; Start 12/10/16 at 11:00 Insulin Aspart (Novolog Insulin Pen) NOVOLOG *MODERATE* ALGORI... Q6 SC Last administered on 12/17/16 12:09; Admin Dose 2 UNIT; Start 12/13/16 at 00:00 Montelukast Sodium (Singulair) 10 mg HS NGT Last administered on 12/16/16 21:33 ; Admin Dose 10 MG; Start 12/13/16 at 21:00 Lisinopril 2.5 mg 2.5 mg DAILY NGT Last administered on 12/17/16 08:19; Admin Dose 2.5 MG; Start 12/13/16 at 09:00 Vancomycin HCl (Vancocin) 250 ml @ 125 mls/hr Q12H IVPB Last administered on 01:06; Admin Dose 125 MLS/HR; Start 12/14/16 at 00:00 Furosemide (Lasix) 20 mg Q8 IV Last administered on 12/18/16 06:40; Admin Dose 20 MG; Start 12/13/16 at 14:00 IV Flush (NS 10 ml) 10 ml PRN PRN IV IV PROTOCOL; Start 12/14/16 at 17:30 Methylprednisolone Sodium Succinate (Solu-Medrol) 80 mg Q8 IV Last administered on 12/18/16 06:40; Admin Dose 80 MG; Start 12/15/16 at 14:00 Miscellaneous Information (*Rx Drug Level Order Reminder*) VANCO TROUGH @ 1, 100 ON... ONCE ONCE XX ; Start 12/18/16 at 11:00; Stop 12/18/16 at 11:01 Insulin Aspart (Novolog Insulin Pen) 5 unit Q8 SC Last administered on 06:47; Admin Dose 5 UNIT; Start 12/17/16 at 22:00 Insulin Detemir (Levemir) 30 unit BID@08,20 SC ; Start 12/17/16 at 20:00 Morphine Sulfate (morphine) 1 mg Q4H PRN IV PAIN LEVEL 4-7; Start 12/17/16 at 15 :30 Morphine Sulfate (morphine) 2 mg Q4H PRN IV PAIN LEVEL 8-10; Start 12/17/16 at 15:30 Oxycodone/ Acetaminophen (Percocet (5/ 325)) 1 tab Q4H PRN PO PAIN; Start at 15:30 Lorazepam 0.5 mg 0.5 mg Q6H PRN IV ANXIETY; Start 12/17/16 at 15:30 Dextrose (D10w) 1,000 ml @ 20 mls/hr Q24H IV Last administered on 12/17/16t 22: 33; Admin Dose 20 MLS/HR; Start 12/17/16 at 21:00 NAHUM BLAIR MD Dec 18, 2016 10:32
[2016-12-18] MEDS: ENOXAPARIN 30 MG/0.3 ML SYG SC SCH (10:58)
[2016-12-18] MEDS ORDERED: BUMETANIDE 6 MG in DEXTROSE 5% 36 ML IV ONE (11:00)
--- NOTE | 2016-12-18 12:53 | CONS ---
Date/Time of Note Date/Time of Note DATE: 12/18/16 TIME: 12:52 Assessment/Plan Assessment/Plan Additional Assessment/Plan Non-ST elevation [place] Multivessel coronary artery disease status post CABG Cardiomyopathy with ejection fraction 50% Respiratory failure Acute decompensated systolic and diastolic congestive heart failure Paroxysmal atrial fibrillation, currently sinus Diabetes Active tobacco use -Chest x-ray with increase congestion and possible infiltrate, patient has been started on Bumex drip. Potassium supplementation ordered. Continue aspirin, statin, beta-zacarias as blood pressure permits. Consultation Date/Type/Reason Admit Date/Time Dec 02, 2016 at 17:14 Type of Consultation: cv 24 HR Interval Summary Free Text/Dictation Shortness of breath is the same. Denies chest pain or dizziness Exam/Review of Systems Vital Signs Vitals Vital Signs Date Time Temp Pulse Resp B/P Pulse Ox O2 Delivery O2 Flow Rate FiO2 12/18/16 08:00 84 12/18/16 07:30 98.4 26 108/60 95 BIPAP 4.0 Nasal Cannula 12/18/16 06:28 50 Intake and Output 12/17/16 12/17/16 12/18/16 15:00 23:00 07:00 Intake Total 53 ml 170 ml 510 ml Output Total 675 ml 1500 ml 925 ml Balance -622 ml -1330 ml -415 ml Exam Dyspnea with speaking Constitutional: alert, oriented Head: normocephalic Respiratory: other (Coarse breath sounds bilaterally, scattered mild crackles, no wheezing) Cardiovascular: other (S1-S2 heard), regular rate and rhythm Gastrointestinal: bowel sounds, non-tender, other (No guarding), soft Extremities: edema, other (No cyanosis) Results Result Diagram: 12/18/1620 12/18/16 0620 Results 24 hrs Laboratory Tests Test 12/17/16 15:15 12/17/16 18:26 12/17/16 18:51 12/17/16 20:43 Bedside Glucose 106 54 L 103 74 Test 12/17/16 22:45 12/18/16 01:07 12/18/16 06:20 12/18/16 06:31 Bedside Glucose 82 86 107 White Blood Count 19.8 H Red Blood Count 3.54 L Hemoglobin 10.5 L Hematocrit 31.9 L Mean Corpuscular Volume 90.1 Mean Corpuscular Hemoglobin 29.7 Mean Corpuscular Hemoglobin Concent 32.9 Red Cell Distribution Width 14.4 Platelet Count 342 Mean Platelet Volume 10.8 H Neutrophils % 87.7 H Lymphocytes % 4.0 L Monocytes % 4.2 Eosinophils % 0.1 Basophils % 0.2 Nucleated Red Blood Cells % 0.1 H Neutrophils # 17.4 H Lymphocytes # 0.8 Monocytes # 0.8 Eosinophils # 0.0 Basophils # 0.0 Nucleated Red Blood Cells # 0.0 Sodium Level 148 H Potassium Level 3.5 Chloride Level 107 Carbon Dioxide Level 32 H Anion Gap 13 Blood Urea Nitrogen 42 H Creatinine 0.75 Glucose Level 109 # Calcium Level 7.8 L Test 12/18/16 08:50 12/18/16 11:15 Bedside Glucose 119 Vancomycin Level Trough 11.3 Medications Medications Current Medications Aspirin (Aspirin) 81 mg DAILY PO Last administered on 12/17/16 08:19; Admin Dose 81 MG; Start 12/03/16 at 09:00 Al Hydrox/Mg Hydrox/Simethicone (Mag-Al Plus) 30 ml Q4H PRN PO GASTROINTESTINAL UPSET; Start 12/02/16 at 15:00 Duloxetine HCl (Cymbalta) 20 mg DAILY PO Last administered on 12/17/16 08:20; Admin Dose 20 MG; Start 12/03/16 at 09:00 Ondansetron HCl (Zofran Tab) 4 mg Q6H PRN PO NAUSEA AND/OR VOMITING; Start at 15:00 Nitroglycerin (Nitroglycerin (Sl Tab) 0.4 Mg) 1 tab Q5M PRN SL CHEST PAIN; Start 12/02/16 at 15:00 Acetaminophen (Tylenol Tab) 650 mg Q6H PRN PO PAIN LEVEL 1-3 OR FEVER Last administered on 12/03/16 12:40; Admin Dose 650 MG; Start 12/02/16 at 15:00 Acetaminophen (Tylenol Supp) 650 mg Q6H PRN [place] PAIN LEVEL 1-3 OR FEVER Last administered on 12/05/16 03:52; Admin Dose 650 MG; Start 12/02/16 at 15:00 Docusate Sodium (Colace) 100 mg Q12H PRN PO CONSTIPATION; Start 12/02/16 at 15: 00 Miscellaneous Information 1 ea NOTE XX ; Start 12/02/16 at 18:30 Glucose (Glutose) 15 gm Q15M PRN PO DECREASED GLUCOSE; Start 12/02/16 at 18:30 Glucose (Glutose) 22.5 gm Q15M PRN PO DECREASED GLUCOSE; Start 12/02/16 at 18: 30 Dextrose (D50w Syringe) 25 ml Q15M PRN IV DECREASED GLUCOSE Last administered on 12/17/16 18:28; Admin Dose 25 ML; Start 12/02/16 at 18:30 Dextrose (D50w Syringe) 50 ml Q15M PRN IV DECREASED GLUCOSE; Start 12/02/16 at 18:30 Glucagon (Glucagen) 1 mg Q15M PRN IM DECREASED GLUCOSE; Start 12/02/16 at 18:30 Glucose (Glutose) 15 gm Q15M PRN BUCCAL DECREASED GLUCOSE; Start 12/02/16 at 18 :30 Atorvastatin Calcium 80 mg 80 mg HS PO Last administered on 12/16/16 21:33; Admin Dose 80 MG; Start 12/02/16 at 21:00 Nitroglycerin/ Dextrose (Nitroglycerin 50 Mg/D5W (Pmx)) 250 ml @ 1.5 mls/hr TITRATE IV ; Start 12/04/16 at 22:30 Pantoprazole (Protonix Iv) 40 mg DAILY@06 IV Last administered on 12/18/16 06: 40; Admin Dose 40 MG; Start 12/05/16 at 06:00 Miscellaneous Information (* Miscellaneous Pharmacy Order) Pt Diabetic. Pls ... ONCE XX ; Start 12/06/16 at 11:30 Metoprolol Tartrate (Lopressor) 25 mg BID PO Last administered on 12/16/16 09: 07; Admin Dose 25 MG; Start 12/07/16 at 21:00 Amiodarone HCl 200 mg 200 mg BID PO Last administered on 12/17/16 08:20; Admin Dose 200 MG; Start 12/08/16 at 09:30 Piperacillin Sod/ Tazobactam Sod (Zosyn 3.375gm/ 100 ml (Pmx)) 100 ml @ 200 mls /hr Q8 IVPB Last administered on 12/18/16 06:40; Admin Dose 200 MLS/HR; Start 12/08/16 at 14:00 Enoxaparin Sodium (Lovenox) 30 mg DAILY SC Last administered on 12/18/16 10:58 ; Admin Dose 30 MG; Start 12/10/16 at 11:00 Insulin Aspart (Novolog Insulin Pen) NOVOLOG *MODERATE* ALGORI... Q6 SC Last administered on 12/17/16 12:09; Admin Dose 2 UNIT; Start 12/13/16 at 00:00 Montelukast Sodium (Singulair) 10 mg HS NGT Last administered on 12/16/16 21:33 ; Admin Dose 10 MG; Start 12/13/16 at 21:00 Lisinopril 2.5 mg 2.5 mg DAILY NGT Last administered on 12/17/16 08:19; Admin Dose 2.5 MG; Start 12/13/16 at 09:00 Vancomycin HCl (Vancocin) 250 ml @ 125 mls/hr Q12H IVPB Last administered on 01:06; Admin Dose 125 MLS/HR; Start 12/14/16 at 00:00; Stop 12/18/16 at 14 :30 IV Flush (NS 10 ml) 10 ml PRN PRN IV IV PROTOCOL; Start 12/14/16 at 17:30 Morphine Sulfate (morphine) 1 mg Q4H PRN IV PAIN LEVEL 4-7; Start 12/17/16 at 15 :30 Morphine Sulfate (morphine) 2 mg Q4H PRN IV PAIN LEVEL 8-10; Start 12/17/16 at 15:30 Oxycodone/ Acetaminophen (Percocet (5/ 325)) 1 tab Q4H PRN PO PAIN; Start at 15:30 Lorazepam 0.5 mg 0.5 mg Q6H PRN IV ANXIETY; Start 12/17/16 at 15:30 Dextrose (D10w) 1,000 ml @ 20 mls/hr Q24H IV Last administered on 12/17/16 22: 33; Admin Dose 20 MLS/HR; Start 12/17/16 at 21:00 Insulin Detemir (Levemir) 25 unit DAILY@20 SC ; Start 12/18/16 at 20:00 Insulin Human NPH (Humulin N) 8 unit Q12 SC ; Start 12/18/16 at 21:00 Methylprednisolone Sodium Succinate 40 mg 40 mg Q12 IV ; Start 12/18/16 at 21:00 Bumetanide 6 mg/ Dextrose 60 ml @ 10 mls/hr Q6H ONCE IV ; Start 12/18/16 at 11:00 ; Stop 12/18/16 at 16:59 Vancomycin HCl/ Sodium Chloride (Vancocin/NS) 250 ml @ 83.333 mls/ hr Q12H IVPB ; Start 12/19/16 at 00:00 Manuel Escudero DO Dec 18, 2016 12:53
[2016-12-18] MEDS ORDERED: POTASSIUM CHLORIDE 50 ML IVPB SCH (13:30)
[2016-12-18] MEDS ORDERED: METHYLPREDNISOLONE 40 MG INJ IV SCH (14:00)
[2016-12-18] MEDS ORDERED: POTASSIUM CHLORIDE (SR) 20 MEQ TAB PO STA (14:49)
[2016-12-18] MEDS: DULOXETINE 20 MG CAP DR PO SCH (14:59)
[2016-12-18] MEDS: METOPROLOL 25 MG TAB PO SCH ×2 (15:00→21:05)
[2016-12-18] MEDS: ASPIRIN 81 MG TAB PO SCH (15:00)
[2016-12-18] MEDS: LISINOPRIL 5 MG TAB NGT SCH (15:00)
[2016-12-18] MEDS: AMIODARONE 200 MG TAB PO SCH ×2 (15:01→21:04)
[2016-12-18] MEDS: DEXTROSE 10% 1,000 ML IV SCH (21:01)
[2016-12-18] MEDS: METHYLPREDNISOLONE 40 MG INJ IV SCH (21:03)
[2016-12-18] MEDS: ATORVASTATIN 80 MG TAB PO SCH (21:03)
[2016-12-18] MEDS: MONTELUKAST 10 MG TAB NGT SCH (21:04)
[2016-12-18] MEDS: NPH, HUMAN INSULIN ISOPHANE 3ML VIAL SC SCH (21:35)
[2016-12-19] VITALS (10 sets, daily range): BP systolic 130–145; BP diastolic 61–74; PULSE 82–101; RESP 18–19
[2016-12-19] MEDS: INSULIN ASPART [NOVOLOG] 3 ML PEN SC SCH ×6 (00:29→22:29)
[2016-12-19] MEDS: VANCOMYCIN 1.25 GM in SOD CHLORIDE 0.9% 250 ML IVPB SCH ×3 (01:06→23:25)
[2016-12-19] MEDS: ALBUTEROL/IPRATROPIUM (NEB) 3 ML AMP HHN SCH ×4 (01:19→19:38)
[2016-12-19] MEDS: PANTOPRAZOLE 40 MG INJ IV SCH (05:32)
[2016-12-19] MEDS: PIPER-TAZO 3.375 GM IV (PMX) 100 ML IVPB SCH ×3 (05:32→22:20)
[2016-12-19] MEDS: BUMETANIDE 1 MG INJ IV SCH ×2 (05:33→18:48)
[2016-12-19 08:21] LABS: ADD SCAN DIFF NO
[2016-12-19 08:26] LABS: BASOPHILS % 0.1 % (0.0-2.0); HEMATOCRIT 31.8 % (37.0-47.0); HEMOGLOBIN 10.3 g/dl (12.0-16.0); LYMPHOCYTES # 1.1 10^3/ul (0.8-2.9); LYMPHOCYTES % 6.4 % (15.0-51.0); MEAN CORPUSCULAR HEMOGLOBIN 29.1 pg (29.0-33.0); MEAN CORPUSCULAR HGB CONC 32.4 g/dl (32.0-37.0); MEAN CORPUSCULAR VOLUME 89.8 fl (82.0-101.0); MEAN PLATELET VOLUME 11.5 fl (7.4-10.4); MONOCYTE # 0.9 10^3/ul (0.3-0.9); MONOCYTES % 5.1 % (0.0-11.0); NEUTROPHIL # 15.1 10^3/ul (1.6-7.5); NEUTROPHILS % 87.1 % (39.0-77.0); PLATELET COUNT 255 10^3/UL (140-415); RED BLOOD COUNT 3.54 10^6/ul (4.20-5.40); RED CELL DISTRIBUTION WIDTH 14.2 % (11.5-14.5); WHITE BLOOD COUNT 17.3 10^3/ul (4.8-10.8)
[2016-12-19] MEDS: METHYLPREDNISOLONE 40 MG INJ IV SCH ×2 (08:41→22:19)
[2016-12-19] MEDS: ASPIRIN 81 MG TAB PO SCH (08:41)
[2016-12-19] MEDS: AMIODARONE 200 MG TAB PO SCH ×2 (08:42→22:19)
[2016-12-19] MEDS: DULOXETINE 20 MG CAP DR PO SCH (08:42)
[2016-12-19] MEDS: LISINOPRIL 5 MG TAB NGT SCH (08:42)
[2016-12-19] MEDS: METOPROLOL 25 MG TAB PO SCH ×2 (08:43→22:19)
[2016-12-19 08:48] LABS: POTASSIUM 3.4 mmol/L (3.5-5.1)
[2016-12-19 08:51] LABS: CREATININE 0.7 mg/dl (0.44-1.00)
[2016-12-19 08:52] LABS: CALCIUM 7.7 mg/dl (8.4-10.2)
[2016-12-19] MEDS: NPH, HUMAN INSULIN ISOPHANE 3ML VIAL SC SCH ×2 (09:13→22:27)
[2016-12-19] MEDS: ENOXAPARIN 30 MG/0.3 ML SYG SC SCH (09:14)
--- NOTE | 2016-12-19 14:41 | PN ---
Date/Time of Note Date/Time of Note DATE: 12/19/16 TIME: 14:37 Assessment/Plan VTE Prophylaxis VTE Prophylaxis Intervention: heparin Lines/Catheters IV Catheter Type (from Nrs): PICC Line Central line still needed: Yes Urinary Cath still in place: Yes Reason Cath still needed: other (indicate) Assessment/Plan Chief Complaint/Hosp Course ASSESSMENT AND PLAN: 1. Non-ST elevation myocardial infarction. The patient is status post left heart catheterization with a finding of multivessel coronary artery disease. Cardiothoracic surgeon consulted status post CABG, continue aspirin , Lovenox, statin and monitor blood pressure 2. Obstructive coronary artery disease as above. Cardiothoracic surgeon has been consulted. Status post CABG, continue medical management 3. Acute respiratory failure. Intubated on 12/09/2016, extubated on 2016 pulmonology has been consulted, continue breathing treatment, respiratory therapy management appreciated, likely secondary to congestive heart failure, on Bumex 4. Essential hypertension, well controlled on medical management. 4. Dyslipidemia. Continue statin. 6. Major depression. Continue Cymbalta. 7. Diabetes mellitus. Continue Levemir, insulin sliding scale, low carb diet. Continue monitor and adjust accordingly 8. Diabetic neuropathy. Continue Lyrica. 9. Leukocytosis. Likely secondary to Solu-Medrol, continue vancomycin and Zosyn, negative blood culture, patient is afebrile 10. For deep venous thrombosis prophylaxis, continue Lovenox 11. For gastrointestinal prophylaxis, on proton pump inhibitor. We will continue to monitor patient closely. Further recommendations, management and treatment as per clinical course. Problems: Subjective 24 Hr Interval Summary Free Text/Dictation Patient complains of having mild shortness of breath yesterday evening No nausea vomiting diarrhea Waiting for physical therapy evaluation Was seen and evaluated by speech therapy and has been placed on pured diet Exam/Review of Systems Vital Signs Vitals Vital Signs Date Time Temp Pulse Resp B/P Pulse Ox O2 Delivery O2 Flow Rate FiO2 12/19/16 12:15 88 12/19/16 11:20 98.2 19 133/61 91 12/19/16 10:16 Nasal Cannula 3.0 12/18/16 06:28 50 Intake and Output 12/18/16 12/18/16 12/19/16 15:00 23:00 07:00 Intake Total 300 ml 360 ml 569.999 ml Output Total 855 ml 1200 ml 1400 ml Balance -555 ml -840 ml -830.001 ml Exam General: The patient is well-developed, Not in acute distress. HEENT: Atraumatic, normocephalic. The pupils are equal and round . Neck: Supple Chest: Normal, surgical site is dry and clean Lungs: Decreased breath sounds bilaterally Heart: Normal S1-S2, Regular rhythm and rate. Abdomen: Soft , nontender, nondistended , bowel sounds are present. Extremities: Normal to inspection, no edema no cyanosis Neurologic: Normal mental status,The patient is awake, alert and oriented . Results Result Diagram: 12/19/16 0810 12/19/16 0810 Results 24 hrs Laboratory Tests Test 12/18/16 17:43 12/18/16 20:49 12/19/16 00:22 12/19/16 05:44 Bedside Glucose 250 H 336 H 256 H 247 H Test 12/19/16 08:10 12/19/16 08:39 12/19/16 11:53 White Blood Count 17.3 H Red Blood Count 3.54 L Hemoglobin 10.3 L Hematocrit 31.8 L Mean Corpuscular Volume 89.8 Mean Corpuscular Hemoglobin 29.1 Mean Corpuscular Hemoglobin Concent 32.4 Red Cell Distribution Width 14.2 Platelet Count 255 # Mean Platelet Volume 11.5 H Neutrophils % 87.1 H Lymphocytes % 6.4 L Monocytes % 5.1 Eosinophils % 0.0 Basophils % 0.1 Nucleated Red Blood Cells % 0.0 Neutrophils # 15.1 H Lymphocytes # 1.1 Monocytes # 0.9 Eosinophils # 0.0 Basophils # 0.0 Nucleated Red Blood Cells # 0.0 Sodium Level 144 Potassium Level 3.4 L Chloride Level 103 Carbon Dioxide Level 30 Anion Gap 14 Blood Urea Nitrogen 36 H Creatinine 0.70 Glucose Level 245 #H Calcium Level 7.7 L Bedside Glucose 223 H 301 H Medications Medications Current Medications Aspirin (Aspirin) 81 mg DAILY PO Last administered on 12/19/16 08:41; Admin Dose 81 MG; Start 12/03/16 at 09:00 Al Hydrox/Mg Hydrox/Simethicone (Mag-Al Plus) 30 ml Q4H PRN PO GASTROINTESTINAL UPSET; Start 12/02/16 at 15:00 Duloxetine HCl (Cymbalta) 20 mg DAILY PO Last administered on 12/19/16 08:42; Admin Dose 20 MG; Start 12/03/16 at 09:00 Ondansetron HCl (Zofran Tab) 4 mg Q6H PRN PO NAUSEA AND/OR VOMITING; Start at 15:00 Nitroglycerin (Nitroglycerin (Sl Tab) 0.4 Mg) 1 tab Q5M PRN SL CHEST PAIN; Start 12/02/16 at 15:00 Acetaminophen (Tylenol Tab) 650 mg Q6H PRN PO PAIN LEVEL 1-3 OR FEVER Last administered on 12/03/16 12:40; Admin Dose 650 MG; Start 12/02/16 at 15:00 Acetaminophen (Tylenol Supp) 650 mg Q6H PRN [place] PAIN LEVEL 1-3 OR FEVER Last administered on 12/05/16 03:52; Admin Dose 650 MG; Start 12/02/16 at 15:00 Docusate Sodium (Colace) 100 mg Q12H PRN PO CONSTIPATION; Start 12/02/16 at 15: 00 Miscellaneous Information 1 ea NOTE XX ; Start 12/02/16 at 18:30 Glucose (Glutose) 15 gm Q15M PRN PO DECREASED GLUCOSE; Start 12/02/16 at 18:30 Glucose (Glutose) 22.5 gm Q15M PRN PO DECREASED GLUCOSE; Start 12/02/16 at 18: 30 Dextrose (D50w Syringe) 25 ml Q15M PRN IV DECREASED GLUCOSE Last administered on 12/17/16 18:28; Admin Dose 25 ML; Start 12/02/16 at 18:30 Dextrose (D50w Syringe) 50 ml Q15M PRN IV DECREASED GLUCOSE; Start 12/02/16 at 18:30 Glucagon (Glucagen) 1 mg Q15M PRN IM DECREASED GLUCOSE; Start 12/02/16 at 18:30 Glucose (Glutose) 15 gm Q15M PRN BUCCAL DECREASED GLUCOSE; Start 12/02/16 at 18 :30 Atorvastatin Calcium 80 mg 80 mg HS PO Last administered on 12/18/16 21:03; Admin Dose 80 MG; Start 12/02/16 at 21:00 Nitroglycerin/ Dextrose (Nitroglycerin 50 Mg/D5W (Pmx)) 250 ml @ 1.5 mls/hr TITRATE IV ; Start 12/04/16 at 22:30 Pantoprazole (Protonix Iv) 40 mg DAILY@06 IV Last administered on 12/19/16 05: 32; Admin Dose 40 MG; Start 12/05/16 at 06:00 Miscellaneous Information (* Miscellaneous Pharmacy Order) Pt Diabetic. Pls ... ONCE XX ; Start 12/06/16 at 11:30 Metoprolol Tartrate (Lopressor) 25 mg BID PO Last administered on 12/19/16 08: 43; Admin Dose 25 MG; Start 12/07/16 at 21:00 Amiodarone HCl 200 mg 200 mg BID PO Last administered on 12/19/16 08:42; Admin Dose 200 MG; Start 12/08/16 at 09:30 Piperacillin Sod/ Tazobactam Sod (Zosyn 3.375gm/ 100 ml (Pmx)) 100 ml @ 200 mls /hr Q8 IVPB Last administered on 12/19/16 14:24; Admin Dose 200 MLS/HR; Start 12/08/16 at 14:00 Enoxaparin Sodium (Lovenox) 30 mg DAILY SC Last administered on 12/19/16 09:14 ; Admin Dose 30 MG; Start 12/10/16 at 11:00 Montelukast Sodium (Singulair) 10 mg HS NGT Last administered on 12/18/16 21:04 ; Admin Dose 10 MG; Start 12/13/16 at 21:00 Lisinopril (Zestril) 2.5 mg DAILY NGT Last administered on 12/19/16 08:42; Admin Dose 2.5 MG; Start 12/13/16 at 09:00 IV Flush (NS 10 ml) 10 ml PRN PRN IV IV PROTOCOL; Start 12/14/16 at 17:30 Morphine Sulfate (morphine) 1 mg Q4H PRN IV PAIN LEVEL 4-7; Start 12/17/16 at 15 :30 Morphine Sulfate (morphine) 2 mg Q4H PRN IV PAIN LEVEL 8-10; Start 12/17/16 at 15:30 Oxycodone/ Acetaminophen (Percocet (5/ 325)) 1 tab Q4H PRN PO PAIN; Start at 15:30 Lorazepam (Ativan) 0.5 mg Q6H PRN IV ANXIETY; Start 12/17/16 at 15:30 Insulin Detemir (Levemir) 25 unit DAILY@20 SC Last administered on 12/18/16 21: 15; Admin Dose 25 UNIT; Start 12/18/16 at 20:00 Insulin Human NPH (Humulin N) 8 unit Q12 SC Last administered on 12/19/16 09:13 ; Admin Dose 8 UNIT; Start 12/18/16 at 21:00 Methylprednisolone Sodium Succinate 40 mg 40 mg Q12 IV Last administered on 12/19 08:41; Admin Dose 40 MG; Start 12/18/16 at 21:00 Vancomycin HCl/ Sodium Chloride (Vancocin/NS) 250 ml @ 83.333 mls/ hr Q12H IVPB Last administered on 12/19/16 12:50; Admin Dose 83.333 MLS/HR; Start at 00:00 Diagnostic Test (Pha) (Accu-Chek) 1 ea 02 XX ; Start 12/20/16 at 02:00 NAHUM BLAIR MD Dec 19, 2016 14:41
--- NOTE | 2016-12-19 15:53 | CONS ---
Date/Time of Note Date/Time of Note DATE: 12/19/16 TIME: 15:51 Consult Date/Type/Reason Admit Date/Time Dec 02, 2016 at 17:14 Initial Consult Date 12/05/16 Type of Consultation: Pulm Subjective no events. denies dyspnea. Objective Vital Signs Date Time Temp Pulse Resp B/P Pulse Ox O2 Delivery O2 Flow Rate FiO2 12/19/16 15:38 98.1 79 19 130/63 95 12/19/16 10:16 Nasal Cannula 3.0 12/18/16 06:28 50 Intake and Output 12/18/16 12/18/16 12/19/16 15:00 23:00 07:00 Intake Total 300 ml 360 ml 569.999 ml Output Total 855 ml 1200 ml 1400 ml Balance -555 ml -840 ml -830.001 ml Exam HEENT: Neck supple; no JVD; no LAD CVS: RRR, S1 and S2 CHEST: Clear ABD: Soft, NT, + BS EXT: No c/c/e Results/Medications Result Diagram: 12/19/16 0810 12/19/16 0810 Results 24 hrs Laboratory Tests Test 12/18/16 17:43 12/18/16 20:49 12/19/16 00:22 12/19/16 05:44 Bedside Glucose 250 H 336 H 256 H 247 H Test 12/19/16 08:10 12/19/16 08:39 12/19/16 11:53 White Blood Count 17.3 H Red Blood Count 3.54 L Hemoglobin 10.3 L Hematocrit 31.8 L Mean Corpuscular Volume 89.8 Mean Corpuscular Hemoglobin 29.1 Mean Corpuscular Hemoglobin Concent 32.4 Red Cell Distribution Width 14.2 Platelet Count 255 # Mean Platelet Volume 11.5 H Neutrophils % 87.1 H Lymphocytes % 6.4 L Monocytes % 5.1 Eosinophils % 0.0 Basophils % 0.1 Nucleated Red Blood Cells % 0.0 Neutrophils # 15.1 H Lymphocytes # 1.1 Monocytes # 0.9 Eosinophils # 0.0 Basophils # 0.0 Nucleated Red Blood Cells # 0.0 Sodium Level 144 Potassium Level 3.4 L Chloride Level 103 Carbon Dioxide Level 30 Anion Gap 14 Blood Urea Nitrogen 36 H Creatinine 0.70 Glucose Level 245 #H Calcium Level 7.7 L Bedside Glucose 223 H 301 H Medications Current Medications Aspirin (Aspirin) 81 mg DAILY PO Last administered on 12/19/16 08:41; Admin Dose 81 MG; Start 12/03/16 at 09:00 Al Hydrox/Mg Hydrox/Simethicone (Mag-Al Plus) 30 ml Q4H PRN PO GASTROINTESTINAL UPSET; Start 12/02/16 at 15:00 Duloxetine HCl (Cymbalta) 20 mg DAILY PO Last administered on 12/19/16 08:42; Admin Dose 20 MG; Start 12/03/16 at 09:00 Ondansetron HCl (Zofran Tab) 4 mg Q6H PRN PO NAUSEA AND/OR VOMITING; Start at 15:00 Nitroglycerin (Nitroglycerin (Sl Tab) 0.4 Mg) 1 tab Q5M PRN SL CHEST PAIN; Start 12/02/16 at 15:00 Acetaminophen (Tylenol Tab) 650 mg Q6H PRN PO PAIN LEVEL 1-3 OR FEVER Last administered on 12/03/16 12:40; Admin Dose 650 MG; Start 12/02/16 at 15:00 Acetaminophen (Tylenol Supp) [address] PAIN LEVEL 1-3 OR FEVER Last administered on 12/05/16 03:52; Admin Dose 650 MG; Start 12/02/16 at 15:00 Docusate Sodium (Colace) 100 mg Q12H PRN PO CONSTIPATION; Start 12/02/16 at 15: 00 Miscellaneous Information 1 ea NOTE XX ; Start 12/02/16 at 18:30 Glucose (Glutose) 15 gm Q15M PRN PO DECREASED GLUCOSE; Start 12/02/16 at 18:30 Glucose (Glutose) 22.5 gm Q15M PRN PO DECREASED GLUCOSE; Start 12/02/16 at 18: 30 Dextrose (D50w Syringe) 25 ml Q15M PRN IV DECREASED GLUCOSE Last administered on 12/17/16 18:28; Admin Dose 25 ML; Start 12/02/16 at 18:30 Dextrose (D50w Syringe) 50 ml Q15M PRN IV DECREASED GLUCOSE; Start 12/02/16 at 18:30 Glucagon (Glucagen) 1 mg Q15M PRN IM DECREASED GLUCOSE; Start 12/02/16 at 18:30 Glucose (Glutose) 15 gm Q15M PRN BUCCAL DECREASED GLUCOSE; Start 12/02/16 at 18 :30 Atorvastatin Calcium 80 mg 80 mg HS PO Last administered on 12/18/16 21:03; Admin Dose 80 MG; Start 12/02/16 at 21:00 Nitroglycerin/ Dextrose (Nitroglycerin 50 Mg/D5W (Pmx)) 250 ml @ 1.5 mls/hr TITRATE IV ; Start 12/04/16 at 22:30 Pantoprazole (Protonix Iv) 40 mg DAILY@06 IV Last administered on 12/19/16 05: 32; Admin Dose 40 MG; Start 12/05/16 at 06:00 Miscellaneous Information (* Miscellaneous Pharmacy Order) Pt Diabetic. Pls ... ONCE XX ; Start 12/06/16 at 11:30 Metoprolol Tartrate (Lopressor) 25 mg BID PO Last administered on 12/19/16 08: 43; Admin Dose 25 MG; Start 12/07/16 at 21:00 Amiodarone HCl 200 mg 200 mg BID PO Last administered on 12/19/16 08:42; Admin Dose 200 MG; Start 12/08/16 at 09:30 Piperacillin Sod/ Tazobactam Sod (Zosyn 3.375gm/ 100 ml (Pmx)) 100 ml @ 200 mls /hr Q8 IVPB Last administered on 12/19/16 14:24; Admin Dose 200 MLS/HR; Start 12/08/16 at 14:00 Enoxaparin Sodium (Lovenox) 30 mg DAILY SC Last administered on 12/19/16 09:14 ; Admin Dose 30 MG; Start 12/10/16 at 11:00 Montelukast Sodium (Singulair) 10 mg HS NGT Last administered on 12/18/16 21:04 ; Admin Dose 10 MG; Start 12/13/16 at 21:00 Lisinopril (Zestril) 2.5 mg DAILY NGT Last administered on 12/19/16 08:42; Admin Dose 2.5 MG; Start 12/13/16 at 09:00 IV Flush (NS 10 ml) 10 ml PRN PRN IV IV PROTOCOL; Start 12/14/16 at 17:30 Morphine Sulfate (morphine) 1 mg Q4H PRN IV PAIN LEVEL 4-7; Start 12/17/16 at 15 :30 Morphine Sulfate (morphine) 2 mg Q4H PRN IV PAIN LEVEL 8-10; Start 12/17/16 at 15:30 Oxycodone/ Acetaminophen (Percocet (5/ 325)) 1 tab Q4H PRN PO PAIN; Start at 15:30 Lorazepam (Ativan) 0.5 mg Q6H PRN IV ANXIETY; Start 12/17/16 at 15:30 Insulin Detemir (Levemir) 25 unit DAILY@20 SC Last administered on 12/18/16 21: 15; Admin Dose 25 UNIT; Start 12/18/16 at 20:00 Insulin Human NPH (Humulin N) 8 unit Q12 SC Last administered on 12/19/16 09:13 ; Admin Dose 8 UNIT; Start 12/18/16 at 21:00 Methylprednisolone Sodium Succinate 40 mg 40 mg Q12 IV Last administered on 12/19 08:41; Admin Dose 40 MG; Start 12/18/16 at 21:00 Vancomycin HCl/ Sodium Chloride (Vancocin/NS) 250 ml @ 83.333 mls/ hr Q12H IVPB Last administered on 12/19/16 12:50; Admin Dose 83.333 MLS/HR; Start at 00:00 Diagnostic Test (Pha) (Accu-Chek) 1 ea 02 XX ; Start 12/20/16 at 02:00 Assessment/Plan Additional Assessment/Plan IMP: 1. s/p Resp Failure: due to volume overload RECS: 1. Continue incentive spirometry encourage out of bed 2. Diuresis 3. Nocturnal BiPAP 4. OOB/PT/OT BRYCE CONKLIN MD Dec 19, 2016 15:53
--- NOTE | 2016-12-19 21:18 | PN ---
Date/Time of Note Date/Time of Note DATE: 12/19/16 TIME: 21:17 Assessment/Plan Lines/Catheters IV Catheter Type (from Nrsg): PICC Line Stearns in Place (from Nrsg): Yes Assessment/Plan Chief Complaint/Hosp Course IMPRESSION: 1. Coronary artery disease. 2. Status post myocardial infarction. 3. Hepatitis C, by report. 4 Hx IVDU SP CABG PNA Hemodynamically stable ABX Extubated follow Pulm recc Problems: Subjective 24 Hr Interval Summary Constitutional: improved Pain Control: mild Exam/Review of Systems Vital Signs Vitals Vital Signs Date Time Temp Pulse Resp B/P Pulse Ox O2 Delivery O2 Flow Rate FiO2 12/19/16 20:30 101 12/19/16 20:00 97.9 18 131/62 96 12/19/16 19:38 Nasal Cannula 2.0 12/18/16 06:28 50 Intake and Output 12/18/16 12/18/16 12/19/16 15:00 23:00 07:00 Intake Total 300 ml 360 ml 569.999 ml Output Total 855 ml 1200 ml 1400 ml Balance -555 ml -840 ml -830.001 ml Exam ENMT: mucosa pink and moist, nl external ears & nose, nl lips & teeth, nl nasal mucosa & septum Neck: non-tender, supple Respiratory: clear to auscultation, normal air movement Cardiovascular: nl pulses, regular rate and rhythm Results Result Diagram: 12/19/16 0810 12/19/16 0810 RENETTA WATSON MD Dec 19, 2016 21:18
[2016-12-19] MEDS: ATORVASTATIN 80 MG TAB PO SCH (22:18)
[2016-12-19] MEDS: MONTELUKAST 10 MG TAB NGT SCH (22:18)
[2016-12-19] MEDS: INSULIN DETEMIR [LEVEMIR] 3ML CART SC SCH (22:26)
[2016-12-20] VITALS (12 sets, daily range): BP systolic 124–157; BP diastolic 65–78; PULSE 82–99; RESP 18–19
[2016-12-20] MEDS: ALBUTEROL/IPRATROPIUM (NEB) 3 ML AMP HHN SCH ×4 (01:21→21:24)
[2016-12-20] MEDS: ACCU-CHEK XX SCH (01:55)
[2016-12-20] MEDS: PANTOPRAZOLE 40 MG INJ IV SCH (05:44)
[2016-12-20] MEDS: BUMETANIDE 1 MG INJ IV SCH ×2 (05:44→18:38)
[2016-12-20] MEDS: PIPER-TAZO 3.375 GM IV (PMX) 100 ML IVPB SCH ×3 (05:44→22:09)
[2016-12-20 09:45] LABS: ADD SCAN DIFF NO
[2016-12-20] MEDS: ENOXAPARIN 30 MG/0.3 ML SYG SC SCH (09:45)
[2016-12-20] MEDS: INSULIN ASPART [NOVOLOG] 3 ML PEN SC SCH ×4 (09:51→22:20)
[2016-12-20 09:55] LABS: BASOPHILS % 0.1 % (0.0-2.0); EOSINOPHILS % 0.1 % (0.0-7.0); HEMATOCRIT 32.9 % (37.0-47.0); HEMOGLOBIN 10.9 g/dl (12.0-16.0); LYMPHOCYTES # 1.4 10^3/ul (0.8-2.9); LYMPHOCYTES % 8.1 % (15.0-51.0); MEAN CORPUSCULAR HEMOGLOBIN 29.3 pg (29.0-33.0); MEAN CORPUSCULAR HGB CONC 33.1 g/dl (32.0-37.0); MEAN CORPUSCULAR VOLUME 88.4 fl (82.0-101.0); MONOCYTE # 0.7 10^3/ul (0.3-0.9); MONOCYTES % 3.9 % (0.0-11.0); NEUTROPHIL # 14.6 10^3/ul (1.6-7.5); NEUTROPHILS % 87.1 % (39.0-77.0); PLATELET COUNT 211 10^3/UL (140-415); RED BLOOD COUNT 3.72 10^6/ul (4.20-5.40); RED CELL DISTRIBUTION WIDTH 14.1 % (11.5-14.5); WHITE BLOOD COUNT 16.7 10^3/ul (4.8-10.8)
[2016-12-20 10:00] LABS: POTASSIUM 3.1 mmol/L (3.5-5.1)
[2016-12-20 10:03] LABS: CREATININE 0.71 mg/dl (0.44-1.00)
[2016-12-20 10:04] LABS: CALCIUM 7.9 mg/dl (8.4-10.2)
[2016-12-20] MEDS: METOPROLOL 25 MG TAB PO SCH ×2 (10:07→22:08)
[2016-12-20] MEDS: DULOXETINE 20 MG CAP DR PO SCH (10:07)
[2016-12-20] MEDS: ASPIRIN 81 MG TAB PO SCH (10:07)
[2016-12-20] MEDS: LISINOPRIL 5 MG TAB NGT SCH (10:08)
[2016-12-20] MEDS: METHYLPREDNISOLONE 40 MG INJ IV SCH ×2 (10:08→22:23)
[2016-12-20] MEDS: AMIODARONE 200 MG TAB PO SCH ×2 (10:08→22:09)
[2016-12-20] MEDS: NPH, HUMAN INSULIN ISOPHANE 3ML VIAL SC SCH ×2 (10:41→22:22)
[2016-12-20] MEDS: VANCOMYCIN 1.25 GM in SOD CHLORIDE 0.9% 250 ML IVPB SCH (12:30)
--- NOTE | 2016-12-20 14:17 | PN ---
Date/Time of Note Date/Time of Note DATE: 12/20/16 TIME: 14:17 Assessment/Plan Lines/Catheters IV Catheter Type (from Nrsg): PICC Line Stearns in Place (from Nrsg): Yes Assessment/Plan Chief Complaint/Hosp Course IMPRESSION: 1. Coronary artery disease. 2. Status post myocardial infarction. 3. Hepatitis C, by report. 4 Hx IVDU SP CABG PNA Hemodynamically stable ABX Extubated follow Pulm recc Problems: Subjective 24 Hr Interval Summary Constitutional: improved Pain Control: mild Exam/Review of Systems Vital Signs Vitals Vital Signs Date Time Temp Pulse Resp B/P Pulse Ox O2 Delivery O2 Flow Rate FiO2 12/20/16 14:10 95 21 12/20/16 14:09 84 20 12/20/16 11:04 97.9 124/70 12/20/16 09:14 Nasal Cannula 2.0 Intake and Output 12/19/16 12/19/16 12/20/16 15:00 23:00 07:00 Intake Total 500 ml 150 ml Output Total 700 ml 1050 ml Balance -200 ml -900 ml Exam Neck: non-tender, supple Respiratory: clear to auscultation, normal air movement Cardiovascular: nl pulses, regular rate and rhythm Gastrointestinal: nl liver, spleen, non-tender, soft Results Result Diagram: 12/20/16 0910 12/20/16 0920 RENETTA WATSON MD Dec 20, 2016 14:17
[2016-12-20] MEDS: POTASSIUM CHLORIDE 50 ML IVPB PRN ×3 (14:29→17:33)
--- NOTE | 2016-12-20 15:00 | PN ---
Date/Time of Note Date/Time of Note DATE: 12/20/16 TIME: 14:58 Assessment/Plan VTE Prophylaxis VTE Prophylaxis Intervention: LMWH Lines/Catheters IV Catheter Type (from [facility]): PICC Line Central line still needed: Yes Urinary Cath still in place: Yes Reason Cath still needed: other (indicate) Assessment/Plan Chief Complaint/Hosp Course ASSESSMENT AND PLAN: 1. Non-ST elevation myocardial infarction. The patient is status post left heart catheterization with a finding of multivessel coronary artery disease. Cardiothoracic surgeon consulted status post CABG, continue aspirin , Lovenox, statin and monitor blood pressure 2. Obstructive coronary artery disease as above. Cardiothoracic surgeon has been consulted. Status post CABG, continue medical management 3. Acute respiratory failure. Intubated on 12/09/2016, extubated on 2016 pulmonology has been consulted, continue breathing treatment, respiratory therapy management appreciated, likely secondary to congestive heart failure, on Bumex 4. Essential hypertension, well controlled on medical management. 4. Dyslipidemia. Continue statin. 6. Major depression. Continue Cymbalta. 7. Diabetes mellitus. Continue Levemir, insulin sliding scale, low carb diet. Continue monitor and adjust accordingly 8. Diabetic neuropathy. Continue Lyrica. 9. Leukocytosis. Likely secondary to Solu-Medrol, continue vancomycin and Zosyn, negative blood culture, patient is afebrile 10. For deep venous thrombosis prophylaxis, continue Lovenox 11. For gastrointestinal prophylaxis, on proton pump inhibitor. We will continue to monitor patient closely. Further recommendations, management and treatment as per clinical course. [facility] Problems: Subjective 24 Hr Interval Summary Free Text/Dictation Patient denies of any chest pain or shortness of breath Max assist with activity and ambulation Waiting for physical therapy Tolerating oral intake Exam/Review of Systems Vital Signs Vitals Vital Signs Date Time Temp Pulse Resp B/P Pulse Ox O2 Delivery O2 Flow Rate FiO2 12/20/16 14:10 95 21 12/20/16 14:09 84 20 12/20/16 11:04 97.9 124/70 12/20/16 09:14 Nasal Cannula 2.0 Intake and Output 12/19/16 12/19/16 12/20/16 15:00 23:00 07:00 Intake Total 500 ml 150 ml Output Total 700 ml 1050 ml Balance -200 ml -900 ml Exam General: The patient is well-developed, Not in acute distress. HEENT: Atraumatic, normocephalic. The pupils are equal and round . Neck: Supple with full range of motion. Chest: Normal, surgical site is dry and clean Lungs: Significant improvement in respiratory sounds Heart: Normal S1-S2, Regular rhythm and rate. Abdomen: Soft , nontender, nondistended , bowel sounds are present. Extremities: Normal to inspection, no edema no cyanosis Neurologic: Normal mental status,The patient is awake, alert and oriented . Results Result Diagram: 12/20/16 0910 12/20/16 0920 Results 24 hrs Laboratory Tests Test 12/19/16 18:25 12/19/16 22:15 12/20/16 01:39 12/20/16 08:12 Bedside Glucose 279 H 187 141 151 Test 12/20/16 09:10 12/20/16 09:20 12/20/16 12:29 White Blood Count 16.7 H Red Blood Count 3.72 L Hemoglobin 10.9 L Hematocrit 32.9 L Mean Corpuscular Volume 88.4 Mean Corpuscular Hemoglobin 29.3 Mean Corpuscular Hemoglobin Concent 33.1 Red Cell Distribution Width 14.1 Platelet Count 211 Mean Platelet Volume 12.0 H Neutrophils % 87.1 H Lymphocytes % 8.1 L Monocytes % 3.9 Eosinophils % 0.1 Basophils % 0.1 Nucleated Red Blood Cells % 0.0 Neutrophils # 14.6 H Lymphocytes # 1.4 Monocytes # 0.7 Eosinophils # 0.0 Basophils # 0.0 Nucleated Red Blood Cells # 0.0 Sodium Level 141 Potassium Level 3.1 L Chloride Level 103 Carbon Dioxide Level 29 Anion Gap 12 Blood Urea Nitrogen 30 H Creatinine 0.71 Glucose Level 177 Calcium Level 7.9 L Bedside Glucose 148 Medications Medications Current Medications Aspirin (Aspirin) 81 mg DAILY PO Last administered on 12/20/16 10:07; Admin Dose 81 MG; Start 12/03/16 at 09:00 Al Hydrox/Mg Hydrox/Simethicone (Mag-Al Plus) 30 ml Q4H PRN PO GASTROINTESTINAL UPSET; Start 12/02/16 at 15:00 Duloxetine HCl (Cymbalta) 20 mg DAILY PO Last administered on 12/20/16 10:07; Admin Dose 20 MG; Start 12/03/16 at 09:00 Ondansetron HCl (Zofran Tab) 4 mg Q6H PRN PO NAUSEA AND/OR VOMITING; Start at 15:00 Nitroglycerin (Nitroglycerin (Sl Tab) 0.4 Mg) 1 tab Q5M PRN SL CHEST PAIN; Start 12/02/16 at 15:00 Acetaminophen (Tylenol Tab) 650 mg Q6H PRN PO PAIN LEVEL 1-3 OR FEVER Last administered on 12/03/16 12:40; Admin Dose 650 MG; Start 12/02/16 at 15:00 Acetaminophen (Tylenol Supp) 650 mg Q6H PRN [place] PAIN LEVEL 1-3 OR FEVER Last administered on 12/05/16 03:52; Admin Dose 650 MG; Start 12/02/16 at 15:00 Docusate Sodium (Colace) 100 mg Q12H PRN PO CONSTIPATION; Start 12/02/16 at 15: 00 Miscellaneous Information 1 ea NOTE XX ; Start 12/02/16 at 18:30 Glucose (Glutose) 15 gm Q15M PRN PO DECREASED GLUCOSE; Start 12/02/16 at 18:30 Glucose (Glutose) 22.5 gm Q15M PRN PO DECREASED GLUCOSE; Start 12/02/16 at 18: 30 Dextrose (D50w Syringe) 25 ml Q15M PRN IV DECREASED GLUCOSE Last administered on 12/17/16 18:28; Admin Dose 25 ML; Start 12/02/16 at 18:30 Dextrose (D50w Syringe) 50 ml Q15M PRN IV DECREASED GLUCOSE; Start 12/02/16 at 18:30 Glucagon (Glucagen) 1 mg Q15M PRN IM DECREASED GLUCOSE; Start 12/02/16 at 18:30 Glucose (Glutose) 15 gm Q15M PRN BUCCAL DECREASED GLUCOSE; Start 12/02/16 at 18 :30 Atorvastatin Calcium 80 mg 80 mg HS PO Last administered on 12/19/16 22:18; Admin Dose 80 MG; Start 12/02/16 at 21:00 Nitroglycerin/ Dextrose (Nitroglycerin 50 Mg/D5W (Pmx)) 250 ml @ 1.5 mls/hr TITRATE IV ; Start 12/04/16 at 22:30 Pantoprazole (Protonix Iv) 40 mg DAILY@06 IV Last administered on 12/20/16 05: 44; Admin Dose 40 MG; Start 12/05/16 at 06:00 Miscellaneous Information (* Miscellaneous Pharmacy Order) Pt Diabetic. Pls ... ONCE XX ; Start 12/06/16 at 11:30 Metoprolol Tartrate (Lopressor) 25 mg BID PO Last administered on 12/20/16 10: 07; Admin Dose 25 MG; Start 12/07/16 at 21:00 Amiodarone HCl 200 mg 200 mg BID PO Last administered on 12/20/16 10:08; Admin Dose 200 MG; Start 12/08/16 at 09:30 Piperacillin Sod/ Tazobactam Sod (Zosyn 3.375gm/ 100 ml (Pmx)) 100 ml @ 200 mls /hr Q8 IVPB Last administered on 12/20/16 05:44; Admin Dose 200 MLS/HR; Start 12/08/16 at 14:00 Enoxaparin Sodium (Lovenox) 30 mg DAILY SC Last administered on 12/20/16 09:45 ; Admin Dose 30 MG; Start 12/10/16 at 11:00 Montelukast Sodium (Singulair) 10 mg HS NGT Last administered on 12/19/16 22:18 ; Admin Dose 10 MG; Start 12/13/16 at 21:00 Lisinopril (Zestril) 2.5 mg DAILY NGT Last administered on 12/20/16 10:08; Admin Dose 2.5 MG; Start 12/13/16 at 09:00 IV Flush (NS 10 ml) 10 ml PRN PRN IV IV PROTOCOL; Start 12/14/16 at 17:30 Morphine Sulfate (morphine) 1 mg Q4H PRN IV PAIN LEVEL 4-7; Start 12/17/16 at 15 :30 Morphine Sulfate (morphine) 2 mg Q4H PRN IV PAIN LEVEL 8-10; Start 12/17/16 at 15:30 Oxycodone/ Acetaminophen (Percocet (5/ 325)) 1 tab Q4H PRN PO PAIN; Start at 15:30 Lorazepam (Ativan) 0.5 mg Q6H PRN IV ANXIETY; Start 12/17/16 at 15:30 Insulin Detemir (Levemir) 25 unit DAILY@20 SC Last administered on 12/19/16 22: 26; Admin Dose 25 UNIT; Start 12/18/16 at 20:00 Insulin Human NPH (Humulin N) 8 unit Q12 SC Last administered on 12/20/16 10:41 ; Admin Dose 8 UNIT; Start 12/18/16 at 21:00 Methylprednisolone Sodium Succinate 40 mg 40 mg Q12 IV Last administered on 12/20 10:08; Admin Dose 40 MG; Start 12/18/16 at 21:00 Vancomycin HCl/ Sodium Chloride (Vancocin/NS) 250 ml @ 83.333 mls/ hr Q12H IVPB Last administered on 12/20/16 12:30; Admin Dose 83.333 MLS/HR; Start at 00:00 Diagnostic Test (Pha) (Accu-Chek) 1 ea 02 XX ; Start 12/20/16 at 02:00 Miscellaneous Information (*Rx Drug Level Order Reminder*) VANCOMYCIN TROUGH 12/20 AT 2300 ONCE ONCE XX ; Start 12/20/16 at 23:00; Stop 12/20/16 at 23:01 NAHUM BLAIR MD Dec 20, 2016 15:00
--- NOTE | 2016-12-20 16:19 | CONS ---
Date/Time of Note Date/Time of Note DATE: 12/20/16 TIME: 16:18 Consult Date/Type/Reason Admit Date/Time Dec 02, 2016 at 17:14 Initial Consult Date 12/05/16 Type of Consultation: Pulm Subjective No events overnight. Objective Vital Signs Date Time Temp Pulse Resp B/P Pulse Ox O2 Delivery O2 Flow Rate FiO2 12/20/16 16:07 98.0 87 19 152/77 98 12/20/16 14:10 21 12/20/16 09:14 Nasal Cannula 2.0 Intake and Output 12/19/16 12/19/16 12/20/16 15:00 23:00 07:00 Intake Total 500 ml 150 ml Output Total 700 ml 1050 ml Balance -200 ml -900 ml Exam HEENT: Neck supple; no JVD; no LAD CVS: RRR, S1 and S2 CHEST: Clear ABD: Soft, NT, + BS EXT: No c/c/e Results/Medications Result Diagram: 12/20/16 0910 12/20/16 0920 Results 24 hrs Laboratory Tests Test 12/19/16 18:25 12/19/16 22:15 12/20/16 01:39 12/20/16 08:12 Bedside Glucose 279 H 187 141 151 Test 12/20/16 09:10 12/20/16 09:20 12/20/16 12:29 White Blood Count 16.7 H Red Blood Count 3.72 L Hemoglobin 10.9 L Hematocrit 32.9 L Mean Corpuscular Volume 88.4 Mean Corpuscular Hemoglobin 29.3 Mean Corpuscular Hemoglobin Concent 33.1 Red Cell Distribution Width 14.1 Platelet Count 211 Mean Platelet Volume 12.0 H Neutrophils % 87.1 H Lymphocytes % 8.1 L Monocytes % 3.9 Eosinophils % 0.1 Basophils % 0.1 Nucleated Red Blood Cells % 0.0 Neutrophils # 14.6 H Lymphocytes # 1.4 Monocytes # 0.7 Eosinophils # 0.0 Basophils # 0.0 Nucleated Red Blood Cells # 0.0 Sodium Level 141 Potassium Level 3.1 L Chloride Level 103 Carbon Dioxide Level 29 Anion Gap 12 Blood Urea Nitrogen 30 H Creatinine 0.71 Glucose Level 177 Calcium Level 7.9 L Bedside Glucose 148 Medications Current Medications Aspirin (Aspirin) 81 mg DAILY PO Last administered on 12/20/16t 10:07; Admin Dose 81 MG; Start 12/03/16 at 09:00 Al Hydrox/Mg Hydrox/Simethicone (Mag-Al Plus) 30 ml Q4H PRN PO GASTROINTESTINAL UPSET; Start 12/02/16 at 15:00 Duloxetine HCl (Cymbalta) 20 mg DAILY PO Last administered on 12/20/16 10:07; Admin Dose 20 MG; Start 12/03/16 at 09:00 Ondansetron HCl (Zofran Tab) 4 mg Q6H PRN PO NAUSEA AND/OR VOMITING; Start at 15:00 Nitroglycerin (Nitroglycerin (Sl Tab) 0.4 Mg) 1 tab Q5M PRN SL CHEST PAIN; Start 12/02/16 at 15:00 Acetaminophen (Tylenol Tab) 650 mg Q6H PRN PO PAIN LEVEL 1-3 OR FEVER Last administered on 12/03/16 12:40; Admin Dose 650 MG; Start 12/02/16 at 15:00 Acetaminophen (Tylenol Supp) 650 mg Q6H PRN [place] PAIN LEVEL 1-3 OR FEVER Last administered on 12/05/16 03:52; Admin Dose 650 MG; Start 12/02/16 at 15:00 Docusate Sodium (Colace) 100 mg Q12H PRN PO CONSTIPATION; Start 12/02/16 at 15: 00 Miscellaneous Information 1 ea NOTE XX ; Start 12/02/16 at 18:30 Glucose (Glutose) 15 gm Q15M PRN PO DECREASED GLUCOSE; Start 12/02/16 at 18:30 Glucose (Glutose) 22.5 gm Q15M PRN PO DECREASED GLUCOSE; Start 12/02/16 at 18: 30 Dextrose (D50w Syringe) 25 ml Q15M PRN IV DECREASED GLUCOSE Last administered on 12/17/16 18:28; Admin Dose 25 ML; Start 12/02/16 at 18:30 Dextrose (D50w Syringe) 50 ml Q15M PRN IV DECREASED GLUCOSE; Start 12/02/16 at 18:30 Glucagon (Glucagen) 1 mg Q15M PRN IM DECREASED GLUCOSE; Start 12/02/16 at 18:30 Glucose (Glutose) 15 gm Q15M PRN BUCCAL DECREASED GLUCOSE; Start 12/02/16 at 18 :30 Atorvastatin Calcium 80 mg 80 mg HS PO Last administered on 12/19/16 22:18; Admin Dose 80 MG; Start 12/02/16 at 21:00 Nitroglycerin/ Dextrose (Nitroglycerin 50 Mg/D5W (Pmx)) 250 ml @ 1.5 mls/hr TITRATE IV ; Start 12/04/16 at 22:30 Pantoprazole (Protonix Iv) 40 mg DAILY@06 IV Last administered on 12/20/16 05: 44; Admin Dose 40 MG; Start 12/05/16 at 06:00 Miscellaneous Information (* Miscellaneous Pharmacy Order) Pt Diabetic. Pls ... ONCE XX ; Start 12/06/16 at 11:30 Metoprolol Tartrate (Lopressor) 25 mg BID PO Last administered on 12/20/16 10: 07; Admin Dose 25 MG; Start 12/07/16 at 21:00 Amiodarone HCl 200 mg 200 mg BID PO Last administered on 12/20/16 10:08; Admin Dose 200 MG; Start 12/08/16 at 09:30 Piperacillin Sod/ Tazobactam Sod (Zosyn 3.375gm/ 100 ml (Pmx)) 100 ml @ 200 mls /hr Q8 IVPB Last administered on 12/20/16 15:30; Admin Dose 200 MLS/HR; Start 12/08/16 at 14:00 Enoxaparin Sodium (Lovenox) 30 mg DAILY SC Last administered on 12/20/16 09:45 ; Admin Dose 30 MG; Start 12/10/16 at 11:00 Montelukast Sodium (Singulair) 10 mg HS NGT Last administered on 12/19/16 22:18 ; Admin Dose 10 MG; Start 12/13/16 at 21:00 Lisinopril (Zestril) 2.5 mg DAILY NGT Last administered on 12/20/16 10:08; Admin Dose 2.5 MG; Start 12/13/16 at 09:00 IV Flush (NS 10 ml) 10 ml PRN PRN IV IV PROTOCOL; Start 12/14/16 at 17:30 Morphine Sulfate (morphine) 1 mg Q4H PRN IV PAIN LEVEL 4-7; Start 12/17/16 at 15 :30 Morphine Sulfate (morphine) 2 mg Q4H PRN IV PAIN LEVEL 8-10; Start 12/17/16 at 15:30 Oxycodone/ Acetaminophen (Percocet (5/ 325)) 1 tab Q4H PRN PO PAIN; Start at 15:30 Lorazepam (Ativan) 0.5 mg Q6H PRN IV ANXIETY; Start 12/17/16 at 15:30 Insulin Detemir (Levemir) 25 unit DAILY@20 SC Last administered on 12/19/16 22: 26; Admin Dose 25 UNIT; Start 12/18/16 at 20:00 Insulin Human NPH (Humulin N) 8 unit Q12 SC Last administered on 12/20/16 10:41 ; Admin Dose 8 UNIT; Start 12/18/16 at 21:00 Methylprednisolone Sodium Succinate 40 mg 40 mg Q12 IV Last administered on 12/20 10:08; Admin Dose 40 MG; Start 12/18/16 at 21:00 Vancomycin HCl/ Sodium Chloride (Vancocin/NS) 250 ml @ 83.333 mls/ hr Q12H IVPB Last administered on 12/20/16 12:30; Admin Dose 83.333 MLS/HR; Start at 00:00 Diagnostic Test (Pha) (Accu-Chek) 1 ea 02 XX ; Start 12/20/16 at 02:00 Miscellaneous Information (*Rx Drug Level Order Reminder*) VANCOMYCIN TROUGH 12/20 AT 2300 ONCE ONCE XX ; Start 12/20/16 at 23:00; Stop 12/20/16 at 23:01 Assessment/Plan Additional Assessment/Plan IMP: 1. s/p Resp Failure: due to volume overload RECS: 1. Continue incentive spirometry encourage out of bed 2. Diuresis 3. Nocturnal BiPAP 4. OOB/PT/OT 5. D/C planning BRYCE CONKLIN MD Dec 20, 2016 16:19
[2016-12-20] MEDS ORDERED: POTASSIUM CHLORIDE 30 MEQ in SOD CHLORIDE 0.9% 150 ML IVPB ONE (16:30)
[2016-12-20] MEDS: ATORVASTATIN 80 MG TAB PO SCH (22:09)
[2016-12-20] MEDS: MONTELUKAST 10 MG TAB NGT SCH (22:12)
[2016-12-20] MEDS: INSULIN DETEMIR [LEVEMIR] 3ML CART SC SCH (22:17)
[2016-12-21] VITALS (9 sets, daily range): BP systolic 118–146; BP diastolic 58–80; PULSE 75–87; RESP 18–20
[2016-12-21] MEDS: VANCOMYCIN 1.25 GM in SOD CHLORIDE 0.9% 250 ML IVPB SCH ×2 (00:31→13:01)
[2016-12-21] MEDS: ACCU-CHEK XX SCH (02:00)
[2016-12-21] MEDS: ALBUTEROL/IPRATROPIUM (NEB) 3 ML AMP HHN SCH ×3 (02:48→13:56)
[2016-12-21] MEDS: BUMETANIDE 1 MG INJ IV SCH (06:34)
[2016-12-21] MEDS: PANTOPRAZOLE 40 MG INJ IV SCH (06:36)
[2016-12-21] MEDS: PIPER-TAZO 3.375 GM IV (PMX) 100 ML IVPB SCH (06:36)
--- NOTE | 2016-12-21 07:43 | PN ---
DATE: 12/20/2016 CARDIOLOGY FOLLOWUP SUBJECTIVE: Patient with no chest pain or pressure, weakness. No palpitation. MEDICATIONS: Reviewed. PHYSICAL EXAMINATION: VITAL SIGNS: Temperature 97.9, heart rate 84, blood pressure 124/70, respiratory rate of 20. HEENT: Normocephalic, atraumatic. Pupils are equal. CARDIOVASCULAR: Regular, status post sternotomy. PULMONARY: No wheezes, having no rhonchi. GASTROINTESTINAL: Soft, obese. EXTREMITIES: Positive edema. NEUROLOGIC: Awake. PSYCHIATRIC: Calm. LABORATORY: Sodium 141, potassium 3.1, BUN of 30, creatinine 0.71, glucose 177, WBC of 16.7, hemogl obin 10.9, platelets 211. ASSESSMENT AND PLAN: 1. [id number] myocardial infarction. 2. Status post coronary bypass graft. 3. Congestive heart failure. 4. Status post recurrent respiratory failure, currently improved. 5. Paroxysmal atrial fibrillation, currently in sinus rhythm. 6. Hyperkalemia. 8. Diabetes. 6. History of tobacco use. RECOMMENDATIONS: Diuresis will be continued. I will send for to rule out C. diff. Will chec k the labs again tomorrow. Diabetic management as per internal medicine. Lisinopril will be contin ued. Aspirin will be continued. Dictated By: FEMI MARTÍNEZ/[place] Conf#: [id number] DID#: [id number]
[2016-12-21 08:10] LABS: ADD SCAN DIFF NO
[2016-12-21 08:22] LABS: BASOPHILS % 0.1 % (0.0-2.0); HEMATOCRIT 32.5 % (37.0-47.0); HEMOGLOBIN 10.6 g/dl (12.0-16.0); LYMPHOCYTES # 0.9 10^3/ul (0.8-2.9); LYMPHOCYTES % 5.4 % (15.0-51.0); MEAN CORPUSCULAR HGB CONC 32.6 g/dl (32.0-37.0); MEAN PLATELET VOLUME 12.1 fl (7.4-10.4); MONOCYTE # 0.5 10^3/ul (0.3-0.9); MONOCYTES % 3.4 % (0.0-11.0); NEUTROPHIL # 14.3 10^3/ul (1.6-7.5); NEUTROPHILS % 90.5 % (39.0-77.0); PLATELET COUNT 203 10^3/UL (140-415); RED BLOOD COUNT 3.65 10^6/ul (4.20-5.40); RED CELL DISTRIBUTION WIDTH 13.8 % (11.5-14.5); WHITE BLOOD COUNT 15.8 10^3/ul (4.8-10.8)
[2016-12-21 08:28] LABS: ALBUMIN 2.8 g/dl (3.3-4.9); BILIRUBIN,INDIRECT 0.6 mg/dl (0-1.1); BILIRUBIN,TOTAL 0.6 mg/dl (0.2-1.3); CALCIUM 7.6 mg/dl (8.4-10.2); CREATININE 0.64 mg/dl (0.44-1.00); MAGNESIUM 2.2 mg/dl (1.7-2.5); POTASSIUM 3.6 mmol/L (3.5-5.1); TOTAL PROTEIN 5.6 g/dl (6.1-8.1)
[2016-12-21] MEDS: METHYLPREDNISOLONE 40 MG INJ IV SCH (09:11)
[2016-12-21] MEDS: DULOXETINE 20 MG CAP DR PO SCH (09:11)
[2016-12-21] MEDS: ASPIRIN 81 MG TAB PO SCH (09:11)
[2016-12-21] MEDS: AMIODARONE 200 MG TAB PO SCH (09:11)
[2016-12-21] MEDS: METOPROLOL 25 MG TAB PO SCH (09:12)
[2016-12-21] MEDS: LISINOPRIL 5 MG TAB NGT SCH (09:12)
[2016-12-21] MEDS: INSULIN ASPART [NOVOLOG] 3 ML PEN SC SCH ×3 (09:17→17:29)
[2016-12-21] MEDS: NPH, HUMAN INSULIN ISOPHANE 3ML VIAL SC SCH (09:17)
[2016-12-21] MEDS: ENOXAPARIN 30 MG/0.3 ML SYG SC SCH (09:19)
--- NOTE | 2016-12-21 10:04 | RADRPT ---
PROCEDURE: CHEST 1VW CLINICAL INDICATION: Shortness of breath TECHNIQUE: Single frontal view of the chest was obtained COMPARISON: 12/18/2016 FINDINGS: Stable sternotomy wires. The cardiac size is mildly enlarged, stable. Aortic vascular calcifications are demonstrated. There is mild interstitial edema and pulmonary vascular congestion. The lungs are otherwise clear. No consolidation, effusion, or pneumothorax. Mild degenerative changes of the visualized osseous structures are visualized. IMPRESSION: 1. Mild cardiomegaly with stable mild pulmonary vascular congestion and interstitial edema. 2. Atherosclerosis. RPTAT:PP .Obinna Blanco MD, Date Time Electronically viewed and signed by .Obinna Blanco MD, on 12/21/2016 10:04 .V/
--- NOTE | 2016-12-21 10:17 | PN ---
DATE: SUBJECTIVE: Ms. Saavedra remains in the intensive care unit. She has been extubated. She seems to b e calm. At this point, I will remain in contact with her son who is the decision maker, but my unde rstanding is, there was another family member who arrived that apparently created some difficulty in the intensive care unit. Nurses were concerned, they called security and there was a question whet her or not they should call the [place] [employer]. Later that day, this individual call ed me and insisted that Mrs. Saavedra go home. He said he was a nephew. I told him that I could not talk to him, she did not give us permission to speak to anyone including her son. He was insistent. I told him I could not once again. It was left at that. OBJECTIVE: VITAL SIGNS: Blood pressure 118/62, pulse is 77 and regular, respirations of 18, temperature 97.6 d egrees, 97% saturation on 3 liters. CHEST: Bibasilar crackles on examination. CARDIOVASCULAR: Regular rate and rhythm. NEUROLOGICAL: She is oriented x3. Cranial nerves II through XII are grossly intact. ASSESSMENT AND PLAN: The reason for this continued follow up is to maintain contact with family mem bers and try and keep Mrs. Saavedra's psychosocial issues hopefully under control. Her agent when she was seriously ill was her son. Since she has awoken, she has refused to allow me to speak to famil y members. Understanding is fairly unclear as she has been not particularly happy that she is in [facility] and when she was extubated she wanted to sign out against medical advice. Her quality of life prior to admission was good. According to family members, she was independent, could do all h er activities of daily living. She does not have caregivers. Her PPS as at that time was greater t [place] 60. There are no pain management issues at this time. RECOMMENDATIONS: I will continue to support her and try and calm her down. There are no ethics iss ues. Code status will not be addressed at this time. I do not think that she is at that point to a ddress that and I do not feel that she is at the point where I could address a POLST form. Dictated By: JUAN ROACH MD, LP/[place] Conf#: [id number] [facility]#: [id number]
--- NOTE | 2016-12-21 11:01 | CONS ---
Date/Time of Note Date/Time of Note DATE: 12/21/16 TIME: 11:00 Assessment/Plan Assessment/Plan Additional Assessment/Plan Non-ST elevation CT Multivessel coronary artery disease status post CABG Cardiomyopathy with ejection fraction 50% Respiratory failure Acute decompensated systolic and diastolic congestive heart failure Paroxysmal atrial fibrillation, currently sinus Diabetes Active tobacco use -Chest x-ray so with pulmonary vascular congestion, symptoms are improving, would transition to p.o. diuretics in the next 1-2 days. With switch Lopressor to Coreg given low normal ejection fraction and for blood pressure control. Continue aspirin, statin therapy, and IAIN inhibitor as blood pressure and renal function permits. Consultation Date/Type/Reason Admit Date/Time Dec 02, 2016 at 17:14 Type of Consultation: cv 24 HR Interval Summary Free Text/Dictation Shortness of breath has improved, denies chest pain or palpitations Exam/Review of Systems Vital Signs Vitals Vital Signs Date Time Temp Pulse Resp B/P Pulse Ox O2 Delivery O2 Flow Rate FiO2 12/21/16 08:00 75 12/21/16 07:59 20 98 Nasal Cannula 3.0 12/21/16 07:36 97.6 118/62 12/20/16 14:10 21 Intake and Output 12/20/16 12/20/16 12/21/16 15:00 23:00 07:00 Intake Total 1000 ml 500 ml Output Total 700 ml 1800 ml Balance 300 ml -1300 ml Exam No apparent distress, talking on the phone Constitutional: alert, oriented Head: normocephalic Neck: supple Respiratory: other (Coarse breath sounds bilaterally, no wheezing) Cardiovascular: other (S1-S2 heard), regular rate and rhythm Gastrointestinal: bowel sounds, non-tender, soft Extremities: edema (Trace) Results Result Diagram: 12/21/1615 12/21/16 0715 Results 24 hrs Laboratory Tests Test 12/20/16 12:29 12/20/16 17:36 12/20/16 22:03 12/20/16 22:50 Bedside Glucose 148 188 217 Vancomycin Level Trough 11.2 Test 12/21/16 02:14 12/21/16 07:15 12/21/16 08:05 Bedside Glucose 236 H 175 White Blood Count 15.8 H Red Blood Count 3.65 L Hemoglobin 10.6 L Hematocrit 32.5 L Mean Corpuscular Volume 89.0 Mean Corpuscular Hemoglobin 29.0 Mean Corpuscular Hemoglobin Concent 32.6 Red Cell Distribution Width 13.8 Platelet Count 203 Mean Platelet Volume 12.1 H Neutrophils % 90.5 H Lymphocytes % 5.4 L Monocytes % 3.4 Eosinophils % 0.0 Basophils % 0.1 Nucleated Red Blood Cells % 0.0 Neutrophils # 14.3 H Lymphocytes # 0.9 Monocytes # 0.5 Eosinophils # 0.0 Basophils # 0.0 Nucleated Red Blood Cells # 0.0 Sodium Level 139 Potassium Level 3.6 Chloride Level 105 Carbon Dioxide Level 31 Anion Gap 7 L Blood Urea Nitrogen 26 H Creatinine 0.64 Glucose Level 199 Calcium Level 7.6 L Magnesium Level 2.2 Total Bilirubin 0.6 Direct Bilirubin 0.00 Indirect Bilirubin 0.6 Aspartate Amino Transf (AST/SGOT) 52 H Alanine Aminotransferase (ALT/SGPT) 77 H Alkaline Phosphatase 88 B-Type Natriuretic Peptide 4390 H Total Protein 5.6 L Albumin 2.8 L Globulin 2.80 Albumin/Globulin Ratio 1.00 Medications Medications Current Medications Aspirin (Aspirin) 81 mg DAILY PO Last administered on 12/21/16 09:11; Admin Dose 81 MG; Start 12/03/16 at 09:00 Al Hydrox/Mg Hydrox/Simethicone (Mag-Al Plus) 30 ml Q4H PRN PO GASTROINTESTINAL UPSET; Start 12/02/16 at 15:00 Duloxetine HCl (Cymbalta) 20 mg DAILY PO Last administered on 12/21/16 09:11; Admin Dose 20 MG; Start 12/03/16 at 09:00 Ondansetron HCl (Zofran Tab) 4 mg Q6H PRN PO NAUSEA AND/OR VOMITING; Start at 15:00 Nitroglycerin (Nitroglycerin (Sl Tab) 0.4 Mg) 1 tab Q5M PRN SL CHEST PAIN; Start 12/02/16 at 15:00 Acetaminophen (Tylenol Tab) 650 mg Q6H PRN PO PAIN LEVEL 1-3 OR FEVER Last administered on 12/03/16 12:40; Admin Dose 650 MG; Start 12/02/16 at 15:00 Acetaminophen (Tylenol Supp) 650 mg Q6H PRN MD PAIN LEVEL 1-3 OR FEVER Last administered on 12/05/16 03:52; Admin Dose 650 MG; Start 12/02/16 at 15:00 Docusate Sodium (Colace) 100 mg Q12H PRN PO CONSTIPATION; Start 12/02/16 at 15: 00 Miscellaneous Information 1 ea NOTE XX ; Start 12/02/16 at 18:30 Glucose (Glutose) 15 gm Q15M PRN PO DECREASED GLUCOSE; Start 12/02/16 at 18:30 Glucose (Glutose) 22.5 gm Q15M PRN PO DECREASED GLUCOSE; Start 12/02/16 at 18: 30 Dextrose (D50w Syringe) 25 ml Q15M PRN IV DECREASED GLUCOSE Last administered on 12/17/16 18:28; Admin Dose 25 ML; Start 12/02/16 at 18:30 Dextrose (D50w Syringe) 50 ml Q15M PRN IV DECREASED GLUCOSE; Start 12/02/16 at 18:30 Glucagon (Glucagen) 1 mg Q15M PRN IM DECREASED GLUCOSE; Start 12/02/16 at 18:30 Glucose (Glutose) 15 gm Q15M PRN BUCCAL DECREASED GLUCOSE; Start 12/02/16 at 18 :30 Atorvastatin Calcium 80 mg 80 mg HS PO Last administered on 12/20/16 22:09; Admin Dose 80 MG; Start 12/02/16 at 21:00 Nitroglycerin/ Dextrose (Nitroglycerin 50 Mg/D5W (Pmx)) 250 ml @ 1.5 mls/hr TITRATE IV ; Start 12/04/16 at 22:30 Pantoprazole (Protonix Iv) 40 mg DAILY@06 IV Last administered on 12/21/16 06: 36; Admin Dose 40 MG; Start 12/05/16 at 06:00 Miscellaneous Information (* Miscellaneous Pharmacy Order) Pt Diabetic. Pls ... ONCE XX ; Start 12/06/16 at 11:30 Metoprolol Tartrate (Lopressor) 25 mg BID PO Last administered on 12/21/16 09: 12; Admin Dose 25 MG; Start 12/07/16 at 21:00 Amiodarone HCl 200 mg 200 mg BID PO Last administered on 12/21/16 09:11; Admin Dose 200 MG; Start 12/08/16 at 09:30 Piperacillin Sod/ Tazobactam Sod (Zosyn 3.375gm/ 100 ml (Pmx)) 100 ml @ 200 mls /hr Q8 IVPB Last administered on 12/21/16 06:36; Admin Dose 200 MLS/HR; Start 12/08/16 at 14:00 Enoxaparin Sodium (Lovenox) 30 mg DAILY SC Last administered on 12/21/16 09:19 ; Admin Dose 30 MG; Start 12/10/16 at 11:00 Montelukast Sodium (Singulair) 10 mg HS NGT Last administered on 12/20/16 22:12 ; Admin Dose 10 MG; Start 12/13/16 at 21:00 Lisinopril (Zestril) 2.5 mg DAILY NGT Last administered on 12/21/16 09:12; Admin Dose 2.5 MG; Start 12/13/16 at 09:00 IV Flush (NS 10 ml) 10 ml PRN PRN IV IV PROTOCOL; Start 12/14/16 at 17:30 Morphine Sulfate (morphine) 1 mg Q4H PRN IV PAIN LEVEL 4-7; Start 12/17/16 at 15 :30 Morphine Sulfate (morphine) 2 mg Q4H PRN IV PAIN LEVEL 8-10; Start 12/17/16 at 15:30 Oxycodone/ Acetaminophen (Percocet (5/ 325)) 1 tab Q4H PRN PO PAIN; Start at 15:30 Lorazepam (Ativan) 0.5 mg Q6H PRN IV ANXIETY; Start 12/17/16 at 15:30 Insulin Detemir (Levemir) 25 unit DAILY@20 SC Last administered on 12/20/16 22: 17; Admin Dose 25 UNIT; Start 12/18/16 at 20:00 Insulin Human NPH (Humulin N) 8 unit Q12 SC Last administered on 12/21/16 09: 17; Admin Dose 8 UNIT; Start 12/18/16 at 21:00 Methylprednisolone Sodium Succinate 40 mg 40 mg Q12 IV Last administered on 09:11; Admin Dose 40 MG; Start 12/18/16 at 21:00 Vancomycin HCl/ Sodium Chloride (Vancocin/NS) 250 ml @ 83.333 mls/ hr Q12H IVPB Last administered on 12/21/16 00:31; Admin Dose 83.333 MLS/HR; Start 12/19 at 00:00 Diagnostic Test (Pha) (Accu-Chek) 1 ea 02 XX ; Start 12/20/16 at 02:00 Manuel Escudero DO Dec 21, 2016 11:01
--- NOTE | 2016-12-21 11:58 | PDOCDIS ---
Discharge Instructions CONDITION Patient Condition: Good HOME CARE INSTRUCTIONS: Special Diet: PUREED DIET ACTIVITY: Activity Restrictions: Special Exercises FOLLOW UP/APPOINTMENTS Appointments Follow up with cardiothoracic surgeon in 1-2 weeks Follow up with cardiology 1-2 weeks NAHUM BLAIR MD Dec 21, 2016 11:58
[2016-12-21] MEDS ORDERED: LOV30I SC (12:03)
[2016-12-21] MEDS ORDERED: LISI-313 NGT (12:03)
[2016-12-21] MEDS ORDERED: UDMYL PO (12:03)
[2016-12-21] MEDS ORDERED: ATOR80TA75 PO (12:03)
[2016-12-21] MEDS ORDERED: AMIO200T2 PO (12:03)
[2016-12-21] MEDS ORDERED: MONT10TA24 NGT (12:03)
[2016-12-21] MEDS ORDERED: CARV6.2579 PO (12:03)
[2016-12-21] MEDS ORDERED: NIT4 SL (12:03)
[2016-12-21] MEDS ORDERED: INSU100I27 SC (12:03)
[2016-12-21] MEDS ORDERED: DOCU-216 PO (12:03)
--- NOTE | 2016-12-21 13:16 | CONS ---
Date/Time of Note Date/Time of Note DATE: 12/21/16 TIME: 13:14 Assessment/Plan Assessment/Plan Additional Assessment/Plan Assessment recommendations; next 1. Patient admitted for acute NE underwent emergent CABG surgery however the patient could not handle extubation and had to be intubated for COPD exacerbation left lower lobe pneumonia. 2. Underlying diabetes. 3. History of hypertension. 4. History of COPD. 5. Status post extubation several days ago with excellent overall clinical status. Discontinue antibiotics. Continue other supportive measures. Consultation Date/Type/Reason Admit Date/Time Dec 02, 2016 at 17:14 Initial Consult Date 12/05/16 Type of Consultation: Pulmonary 24 HR Interval Summary Free Text/Dictation Patient condition is markedly improved. She has been transferred out of ICU to telemetry unit. Denies any shortness of breath, wheezing, chest pain, sputum production. General exam; elderly lady, currently in no distress awake and alert. Exam/Review of Systems Vital Signs Vitals Vital Signs Date Time Temp Pulse Resp B/P Pulse Ox O2 Delivery O2 Flow Rate FiO2 12/21/16 12:00 80 12/21/16 11:50 97.8 18 121/58 97 12/21/16 07:59 Nasal Cannula 3.0 12/20/16 14:10 21 Intake and Output 12/20/16 12/20/16 12/21/16 15:00 23:00 07:00 Intake Total 1000 ml 500 ml Output Total 700 ml 1800 ml Balance 300 ml -1300 ml Exam HEENT exam is; supple neck, no JVD. No lymphadenopathy. Midline trachea. No thyromegaly. Patient has multiple carious teeth. Pupils are small bilaterally. Chest examination; diminished but clear vessel. S1-S2 audible, no murmurs. Regular rhythm. There is a well-healed sternal scar. Abdomen examination; soft, nontender. No organomegaly. Bowel sounds audible. Extremity exam is; no peripheral edema. Pulses 1+ bilaterally. CIVIL PREPAREDNESS OFFICER examination; no focal deficit. Results Result Diagram: 12/21/16 0715 12/21/16 0715 Results 24 hrs Laboratory Tests Test 12/20/16 17:36 12/20/16 22:03 12/20/16 22:50 12/21/16 02:14 Bedside Glucose 188 217 236 H Vancomycin Level Trough 11.2 Test 12/21/16 07:15 12/21/16 08:05 12/21/16 13:03 White Blood Count 15.8 H Red Blood Count 3.65 L Hemoglobin 10.6 L Hematocrit 32.5 L Mean Corpuscular Volume 89.0 Mean Corpuscular Hemoglobin 29.0 Mean Corpuscular Hemoglobin Concent 32.6 Red Cell Distribution Width 13.8 Platelet Count 203 Mean Platelet Volume 12.1 H Neutrophils % 90.5 H Lymphocytes % 5.4 L Monocytes % 3.4 Eosinophils % 0.0 Basophils % 0.1 Nucleated Red Blood Cells % 0.0 Neutrophils # 14.3 H Lymphocytes # 0.9 Monocytes # 0.5 Eosinophils # 0.0 Basophils # 0.0 Nucleated Red Blood Cells # 0.0 Sodium Level 139 Potassium Level 3.6 Chloride Level 105 Carbon Dioxide Level 31 Anion Gap 7 L Blood Urea Nitrogen 26 H Creatinine 0.64 Glucose Level 199 Calcium Level 7.6 L Magnesium Level 2.2 Total Bilirubin 0.6 Direct Bilirubin 0.00 Indirect Bilirubin 0.6 Aspartate Amino Transf (AST/SGOT) 52 H Alanine Aminotransferase (ALT/SGPT) 77 H Alkaline Phosphatase 88 B-Type Natriuretic Peptide 4390 H Total Protein 5.6 L Albumin 2.8 L Globulin 2.80 Albumin/Globulin Ratio 1.00 Bedside Glucose 175 330 H Medications Medications Current Medications Aspirin (Aspirin) 81 mg DAILY PO Last administered on 12/21/16 09:11; Admin Dose 81 MG; Start 12/03/16 at 09:00 Al Hydrox/Mg Hydrox/Simethicone (Mag-Al Plus) 30 ml Q4H PRN PO GASTROINTESTINAL UPSET; Start 12/02/16 at 15:00 Duloxetine HCl (Cymbalta) 20 mg DAILY PO Last administered on 12/21/16 09:11; Admin Dose 20 MG; Start 12/03/16 at 09:00 Ondansetron HCl (Zofran Tab) 4 mg Q6H PRN PO NAUSEA AND/OR VOMITING; Start at 15:00 Nitroglycerin (Nitroglycerin (Sl Tab) 0.4 Mg) 1 tab Q5M PRN SL CHEST PAIN; Start 12/02/16 at 15:00 Acetaminophen (Tylenol Tab) 650 mg Q6H PRN PO PAIN LEVEL 1-3 OR FEVER Last administered on 12/03/16 12:40; Admin Dose 650 MG; Start 12/02/16 at 15:00 Acetaminophen (Tylenol Supp) 650 mg Q6H PRN MA PAIN LEVEL 1-3 OR FEVER Last administered on 12/05/16 03:52; Admin Dose 650 MG; Start 12/02/16 at 15:00 Docusate Sodium (Colace) 100 mg Q12H PRN PO CONSTIPATION; Start 12/02/16 at 15: 00 Miscellaneous Information 1 ea NOTE XX ; Start 12/02/16 at 18:30 Glucose (Glutose) 15 gm Q15M PRN PO DECREASED GLUCOSE; Start 12/02/16 at 18:30 Glucose (Glutose) 22.5 gm Q15M PRN PO DECREASED GLUCOSE; Start 12/02/16 at 18: 30 Dextrose (D50w Syringe) 25 ml Q15M PRN IV DECREASED GLUCOSE Last administered on 12/17/16 18:28; Admin Dose 25 ML; Start 12/02/16 at 18:30 Dextrose (D50w Syringe) 50 ml Q15M PRN IV DECREASED GLUCOSE; Start 12/02/16 at 18:30 Glucagon (Glucagen) 1 mg Q15M PRN IM DECREASED GLUCOSE; Start 12/02/16 at 18:30 Glucose (Glutose) 15 gm Q15M PRN BUCCAL DECREASED GLUCOSE; Start 12/02/16 at 18 :30 Atorvastatin Calcium 80 mg 80 mg HS PO Last administered on 12/20/16 22:09; Admin Dose 80 MG; Start 12/02/16 at 21:00 Nitroglycerin/ Dextrose (Nitroglycerin 50 Mg/D5W (Pmx)) 250 ml @ 1.5 mls/hr TITRATE IV ; Start 12/04/16 at 22:30 Pantoprazole (Protonix Iv) 40 mg DAILY@06 IV Last administered on 12/21/16 06: 36; Admin Dose 40 MG; Start 12/05/16 at 06:00 Miscellaneous Information (* Miscellaneous Pharmacy Order) Pt Diabetic. Pls ... ONCE XX ; Start 12/06/16 at 11:30 Amiodarone HCl 200 mg 200 mg BID PO Last administered on 12/21/16 09:11; Admin Dose 200 MG; Start 12/08/16 at 09:30 Piperacillin Sod/ Tazobactam Sod (Zosyn 3.375gm/ 100 ml (Pmx)) 100 ml @ 200 mls /hr Q8 IVPB Last administered on 12/21/16 06:36; Admin Dose 200 MLS/HR; Start 12/08/16 at 14:00 Enoxaparin Sodium (Lovenox) 30 mg DAILY SC Last administered on 12/21/16 09:19 ; Admin Dose 30 MG; Start 12/10/16 at 11:00 Montelukast Sodium (Singulair) 10 mg HS NGT Last administered on 12/20/16 22:12 ; Admin Dose 10 MG; Start 12/13/16 at 21:00 Lisinopril (Zestril) 2.5 mg DAILY NGT Last administered on 12/21/16 09:12; Admin Dose 2.5 MG; Start 12/13/16 at 09:00 IV Flush (NS 10 ml) 10 ml PRN PRN IV IV PROTOCOL; Start 12/14/16 at 17:30 Morphine Sulfate (morphine) 1 mg Q4H PRN IV PAIN LEVEL 4-7; Start 12/17/16 at 15 :30 Morphine Sulfate (morphine) 2 mg Q4H PRN IV PAIN LEVEL 8-10; Start 12/17/16 at 15:30 Oxycodone/ Acetaminophen (Percocet (5/ 325)) 1 tab Q4H PRN PO PAIN; Start at 15:30 Lorazepam (Ativan) 0.5 mg Q6H PRN IV ANXIETY; Start 12/17/16 at 15:30 Insulin Detemir (Levemir) 25 unit DAILY@20 SC Last administered on 12/20/16 22: 17; Admin Dose 25 UNIT; Start 12/18/16 at 20:00 Insulin Human NPH (Humulin N) 8 unit Q12 SC Last administered on 12/21/16 09: 17; Admin Dose 8 UNIT; Start 12/18/16 at 21:00 Methylprednisolone Sodium Succinate 40 mg 40 mg Q12 IV Last administered on 09:11; Admin Dose 40 MG; Start 12/18/16 at 21:00 Vancomycin HCl/ Sodium Chloride (Vancocin/NS) 250 ml @ 83.333 mls/ hr Q12H IVPB Last administered on 12/21/16 13:01; Admin Dose 83.333 MLS/HR; Start 12/19 at 00:00 Diagnostic Test (Pha) (Accu-Chek) 1 XX ; Start 12/20/16 at 02:00 Carvedilol (Coreg) 6.25 mg BID PO ; Start 12/21/16 at 21:00 WILMER DUTTON Dec 21, 2016 13:16
--- NOTE | 2016-12-21 13:29 | PN ---
Date/Time of Note Date/Time of Note DATE: 12/21/16 TIME: 13:29 Assessment/Plan Lines/Catheters IV Catheter Type (from Nrsg): PICC Line Stearns in Place (from Nrsg): Yes Assessment/Plan Chief Complaint/Hosp Course IMPRESSION: 1. Coronary artery disease. 2. Status post myocardial infarction. 3. Hepatitis C, by report. 4 Hx IVDU SP CABG PNA Hemodynamically stable ABX Extubated follow Pulm recc Problems: Subjective 24 Hr Interval Summary Constitutional: improved Pain Control: mild Exam/Review of Systems Vital Signs Vitals Vital Signs Date Time Temp Pulse Resp B/P Pulse Ox O2 Delivery O2 Flow Rate FiO2 12/21/16 12:00 80 12/21/16 11:50 97.8 18 121/58 97 12/21/16 07:59 Nasal Cannula 3.0 12/20/16 14:10 21 Intake and Output 12/20/16 12/20/16 12/21/16 15:00 23:00 07:00 Intake Total 1000 ml 500 ml Output Total 700 ml 1800 ml Balance 300 ml -1300 ml Exam ENMT: mucosa pink and moist, nl external ears & nose, nl lips & teeth, nl nasal mucosa & septum Neck: non-tender, supple Respiratory: clear to auscultation, normal air movement Cardiovascular: nl pulses, regular rate and rhythm Results Result Diagram: 12/21/1615 12/21/1615 RENETTA WATSON MD Dec 21, 2016 13:29
--- NOTE | 2016-12-21 23:44 | DS ---
DATE OF ADMISSION: 12/02/2016 DATE OF DISCHARGE: 12/21/2016 CONSULTANTS: 1. Dr. Sundar Larose 2. Dr. Manuel Escudero 3. Dr. Radhames Ybarra 4. Dr. Chapincito Tomlin 5. Dr. De La Garza 6. Dr. eHnrik Herrera. 7. Respiratory therapy 8. nurse informatics educator PROCEDURES: 1. Triple bypass with coronary artery bypass grafting: A. Left internal mammary artery to left anterior descending, proximal. B. Left internal mammary artery to the left anterior descending, distal. C. Saphenous vein graft to posterior descending artery. D. Saphenous vein graft diagonal branch to left anterior descending. E. Coronary endarterectomy. F. Saphenous vein harvest, left lower extremity. G. Thymectomy. 2. Carotid Doppler showed no evidence of hemodynamically significant stenosis bilaterally internal carotid arteries. 3. PICC line insertion on 12/14/2016. 4. Intubation. 5. A 2D echocardiogram on 12/02/2016: Lower limit of normal systolic function. Normal left ventri cular cavity size. Normal left ventricular thickness. Ejection fraction visually estimated at 50%. Stage I diastolic dysfunction. Normal right ventricle size. Normal right ventricular systolic fu nction. The left and right atriums are normal in size. Trace mitral regurgitation. Estimated peak PA systolic pressure 29 mmHg. There is normal pericardium with no significant pericardial effusion . DIAGNOSES: 1. Non-ST elevation myocardial infarction. 2. Multiple vessel coronary artery disease status post coronary artery bypass graft. 3. Cardiomyopathy with ejection fraction 50%. 4. Respiratory failure with need of intubation. The patient was extubated on 12/17/2016. 5. Acute decompensated systolic and diastolic congestive failure. 6. Paroxysmal atrial fibrillation, currently sinus. 7. Diabetes. 8. History of tobacco use. 9. Essential hypertension. 10. Dyslipidemia. 11. Major depression. 12. Diabetes mellitus. 13. Diabetic neuropathy. 14. Leukocytosis, likely secondary to Solu-Medrol. MEDICATIONS: 1. Tylenol. 2. DuoNeb. 3. Amiodarone. 4. Aspirin. 5. Lipitor. 6. Coreg. 7. Colace. 8. Cymbalta. 9. Lovenox. 10. Lisinopril. 11. Restoril. 12. Singular. 13. Downey. 14. Nitroglycerin. 15. Zofran. 16. Zosyn. 17. Lyrica. 18. Potassium chloride. 19. Bumex. 20. Lantus 30 units. 21. Lorazepam. 22. Prednisone. 23. NPH 5 units with prednisone. 24. Protonix. OTHER INSTRUCTIONS: 1. Follow with Dr. Larose in 1 to 2 weeks. 2. Follow with cardiology in 1 to 2 weeks. 3. PT, OT treatment b.i.d. 4. Speech therapy to advance diet. 5. Diet: Cardiac pureed and low carbohydrate. 6. Respiratory treatment as per respiratory therapy. HOSPITAL COURSE: This is a very pleasant 66-year-old lady with a past medical hist ory of coronary artery disease, hypertension, dyslipidemia, diabetes mellitus, diabetic neuropathy, major depression, chronic pain syndrome, insomnia, obesity, nicotine dependency who had been in norm [place] state of health. The patient was having difficulty with ambulation for the past several months. Presented to [facility] secondary to having chest discomfort x3 days radiating to her back , neck, her jaw. The patient was seen and evaluated by print shop assistant. Her EKG showed normal sinus w ith bifascicular block, normal TN, wide QRS. Troponin was found to be elevated at 0.256. The patie nt was taken to cardiac catheterization where she was found to have obstructed coronary artery disea se, was found 20% stenosis at circumflex, 90% stenosis of LAD, 50% to 60% stenosis of RCA. Cardioth oracic surgeon was consulted. The patient had a triple bypass on 12/07/2016 and was transferred to ICU where she remained on the vent and was extubated 3 days postop. She was continued to be managed medically and was followed by print shop assistant and vascular surgeon. The patient essentially started h aving breathing discomfort and she was reintubated on 12/09/2016. Pulmonology was consulted. The p atient was placed on diuresis and was found to be very agitated. She required a great amount of sed ation via propofol and fentanyl. Essentially, she was extubated on 12/17/2016. Fortunately there w as some family that came to her bedside and wanted to take the patient home against our medical advi ce and fortunately, with the help of the security and patient's psychologist, patient remained in [facility] where she continued to receive medical management. Essentially patient was transferred t o telemetry floor where she has been able to obtain physical therapy. Her breathing status has impr freddy. She has been placed on Bumex secondary to having pulmonary vascular congestion and edema, whi ch has been improving. This patient's lungs have been improving significantly. This morning, lindsey lei was able to ambulate about 10 feet with max assist. Due to this, [facility], speech therapy. The patient will follow up with card iothoracic surgeon and cardiology as outpatient. LABORATORY: WBC 15.8, hemoglobin 10.6, hematocrit 32.5, platelet 203. Sodium 139, potassium 3.6, c hloride 105, bicarbonate 31, BUN 26, creatinine 0.64, glucose 199, calcium 7.6. CONDITION AT TIME OF DISCHARGE: Stable to be transferred to the [facility]iary facility. Dictated By: NAHUM HONG/NTS Conf#: [id number] DID#: [id number]
== END 2016-12-21 17:50 | DRG 233 ==
LOC: E/R 05:30 → SDS 15:19 → ICU 17:14 → TEL 12-18 16:43
PROVIDERS: ADMIT Family Medicine; ATTEND Family Medicine
PROC: B211YZZ Fluoroscopy of Multiple Coronary Arteries using Other Contrast (ICD-10-PCS; 2016-12-02)
PROC: 4A023N7 Measurement of Cardiac Sampling and Pressure, Left Heart, Percutaneous Approach (ICD-10-PCS; 2016-12-02 13:00)
PROC: 02100Z9 Bypass Coronary Artery, One Artery from Left Internal Mammary, Open Approach (ICD-10-PCS; 2016-12-04)
PROC: 06BQ4ZZ Excision of Left Saphenous Vein, Percutaneous Endoscopic Approach (ICD-10-PCS; 2016-12-04)
PROC: 5A1221Z Performance of Cardiac Output, Continuous (ICD-10-PCS; 2016-12-04)
PROC: 021109W Bypass Coronary Artery, Two Arteries from Aorta with Autologous Venous Tissue, Open Approach (ICD-10-PCS; principal; 2016-12-04 14:00)
PROC: 5A1955Z Respiratory Ventilation, Greater than 96 Consecutive Hours (ICD-10-PCS; 2016-12-09)
PROC: 0BH17EZ Insertion of Endotracheal Airway into Trachea, Via Natural or Artificial Opening (ICD-10-PCS; 2016-12-09)
PROC: 02HV33Z Insertion of Infusion Device into Superior Vena Cava, Percutaneous Approach (ICD-10-PCS; 2016-12-14)
DX: I21.4 Non-ST elevation (NSTEMI) myocardial infarction (principal); I50.43 Acute on chronic combined systolic (congestive) and diastolic (congestive) heart failure; J96.00 Acute respiratory failure, unspecified whether with hypoxia or hypercapnia; J18.9 Pneumonia, unspecified organism; I42.9 Cardiomyopathy, unspecified; E11.40 Type 2 diabetes mellitus with diabetic neuropathy, unspecified; I11.0 Hypertensive heart disease with heart failure; F33.9 Major depressive disorder, recurrent, unspecified; J44.1 Chronic obstructive pulmonary disease with (acute) exacerbation; D62 Acute posthemorrhagic anemia; J98.11 Atelectasis; D72.829 Elevated white blood cell count, unspecified; F17.200 Nicotine dependence, unspecified, uncomplicated; B19.20 Unspecified viral hepatitis C without hepatic coma; I48.0 Paroxysmal atrial fibrillation; E87.5 Hyperkalemia; T38.0X5A Adverse effect of glucocorticoids and synthetic analogues, initial encounter; Y92.230 Patient room in hospital as the place of occurrence of the external cause; Z79.4 Long term (current) use of insulin
CPT/HCPCS: 31500; 36415; 36430; 36569; 36592; 36600; 71010; 76937; 80048; 80053; 80061; 80202; 82550; 82553; 82803; 82962; 83036; 83605; 83735; 83880; 84100; 84132; 84439; 84443; 84481; 84484; 85025; 85610; 85730; 86644; 86803; 86850; 86900; 86901; 86920; 86945; 87040; 87081; 87340; 92526; 92610; 93005; 93306; 93312; 93325; 93458; 93880; 93970; 94002; 94003; 94640; 94660; 94664; 94770; 96372; 96374; 96375; 97110; 97162; 97164; 97530; J1940; C1769; C1887; C9113; J0171; J0282; J0690; J0692; J0696; J1170; J1265; J1644; J1650; J1815; J2001; J2060; J2150; J2250; J2270; J2370; J2405; J2440; J2543; J2720; J2920; J2930; J3010; J3370; J3475; J3480; J7030; J7040; J7050; J7060; J7070; P9016; P9035; P9045; P9047; P9059; Q9967

== ENCOUNTER 2017-01-13 10:22 | Inpatient (IN) | payer OTHER ==
[~2017-01-13] VITALS: Ht 162.6 cm; Wt 100.0 kg
[~2017-01-13 10:22] MED LIST changes: +AMIO200T2 PO; -AMIT100T2 PO; +ASPI-664 PO; +ATOR80TA75 PO; +CARV6.2579 PO; +DOCU-216 PO; +DULO20CA43 PO; +ENOX30DI2 SC; -FLUO40CA10; +HYDR-902 PO; +INSU100I27 SC; -INSU100I28; -INSU100V18 SQ; +LISI-313 NGT; +LYRI100 PO; +MONT10TA24 NGT; +MORP30CA16 PO; +NIT4 SL; +TEMA15CA6 PO; +UDMYL PO; -[UNRECOGNIZED DRUG - REMARK]
[2017-01-13 11:47] LABS: ADD SCAN DIFF NO
[2017-01-13 11:50] LABS: BASOPHIL # 0.1 10^3/ul (0.0-0.1); BASOPHILS % 0.7 % (0.0-2.0); EOSINOPHILS % 0.3 % (0.0-7.0); HEMATOCRIT 33.1 % (37.0-47.0); HEMOGLOBIN 10.4 g/dl (12.0-16.0); LYMPHOCYTES # 2.5 10^3/ul (0.8-2.9); LYMPHOCYTES % 21.2 % (15.0-51.0); MEAN CORPUSCULAR HEMOGLOBIN 28.9 pg (29.0-33.0); MEAN CORPUSCULAR HGB CONC 31.4 g/dl (32.0-37.0); MEAN CORPUSCULAR VOLUME 91.9 fl (82.0-101.0); MEAN PLATELET VOLUME 9.2 fl (7.4-10.4); MONOCYTES % 8.9 % (0.0-11.0); NEUTROPHIL # 7.8 10^3/ul (1.6-7.5); NEUTROPHILS % 67.5 % (39.0-77.0); PLATELET COUNT 725 10^3/UL (140-415); RED CELL DISTRIBUTION WIDTH 15.9 % (11.5-14.5); WHITE BLOOD COUNT 11.6 10^3/ul (4.8-10.8)
[2017-01-13] MEDS ORDERED: OXYC-279 PO (12:18)
--- NOTE | 2017-01-13 12:40 | RADRPT ---
PROCEDURE: Chest Radiograph. CLINICAL INDICATION: Chest pain TECHNIQUE: Single frontal chest radiograph. COMPARISON: Chest radiograph 12/21/2016 FINDINGS: Patient is status post sternotomy and CABG. The heart is mildly enlarge. There is dense left retro cardiac mass seen which may represent infiltrate, effusion, or dense atelectasis. There is stable le ft mid lung zone atelectasis. The right lung is grossly clear. The bones are intact. IMPRESSION: 1. Left retrocardiac opacification which may be related to effusion, atelectasis, or infiltrate. 2. Cardiomegaly. 3. Left mid lung zone atelectasis. RPTAT: KK .Kalin Choudhary MD, MD Date Time Electronically viewed and signed by .Kalin Choudhary MD, on 01/13/2017 12:39 .B/
[2017-01-13 12:56] LABS: INR 0.9; PROTIME 12.1 Sec (12.2-14.2); PT RATIO 0.9
[2017-01-13 13:00] LABS: CREATININE 0.53 mg/dl (0.44-1.00)
[2017-01-13 13:10] LABS: TROPONIN-I 0.037 ng/ml (0.00-0.12)
[2017-01-13] MEDS ORDERED: POTASSIUM CHLORIDE (SR) 20 MEQ TAB PO STA (13:16)
[2017-01-13] MEDS ORDERED: ONDANSETRON 4 MG INJ IV PRN (14:30)
[2017-01-13] MEDS ORDERED: ACETAMINOPHEN 325 MG TAB PO PRN (14:30)
[2017-01-13 14:41] LABS: AADO2 Arterial 46.4 mmHg (7.0-24.0); Allen Test ACCEPTAB; Arterial Base Excess 7.1 mmol/L (-3.0-3); Arterial COHb 0.1 % (0.0-3.0); Arterial Fraction of Oxyhgb 95.5 % (93.0-99.0); Arterial HCO3 32.5 mmol/L (22.0-26.0); Arterial MetHb 0.4 % (0.0-1.5); Arterial Total Hemglobin 11.4 g/dl (12.0-18.0); MODE NASAL CANNULA
[2017-01-13 15:10] LABS: PARTIAL THROMBOPLASTIN TIME 20.6 Sec (25.0-35.0)
[2017-01-13] MEDS ORDERED: SOD CHLORIDE 0.9% 1,000 ML IV ONE (15:30)
[2017-01-13] MEDS ORDERED: PIPER-TAZO 3.375 GM IV (PMX) 100 ML IVPB ONE (15:30)
[2017-01-13] MEDS ORDERED: SOD CHLORIDE 0.9% 500 ML IV ONE (15:30)
--- NOTE | 2017-01-13 15:36 | ERA ---
ER Documentation Chief Complaint Date/Time DATE: 01/13/17 TIME: 15:21 Chief Complaint R102 FROM HOME, C/O SOB, PER HOME HEALTH NURSE HPI This 66-year-old female comes in emergency room for shortness of breath and a high respiratory rate according to her home health nurse. She's accounted by her significant other who states that she has been breathing like this for a little while now. It has been increasing. She denies chest pain. She did suffer myocardial infarction on December 02 and came to this hospital at that time. She denies fever and chills. Denies vomiting. She also came in because she has a area of her previous saphenous vein graft to the interior of her left leg which has opened up and is draining clear fluid. No current bleeding. ROS All systems reviewed and are negative except as per history of present illness. Medications Home Meds Active Scripts Insulin Detemir (Levemir Flextouch) 100 Unit/1 Ml Insuln.pen, 25 UNIT SC DAILY@ 20 for 1 Day Prov:NAHUM BLAIR MD 12/21/16 Magaldrate/Simethicone* (Mag-Al Plus Suspension*) 30 Ml Oral.susp, 30 ML PO Q4H Y for GASTROINTESTINAL UPSET for 1 Day Prov:NAHUM BLAIR MD 12/21/16 Docusate Sodium (Dok) 100 Mg Capsule, 100 MG PO Q12H Y for CONSTIPATION for 1 Day, CAP Prov:NAHUM BLAIR MD 12/21/16 Montelukast Sodium* (Montelukast Sodium*) 10 Mg Tablet, 10 MG NGT HS for 1 Day, TAB Prov:NAHUM BLAIR MD 12/21/16 Nitroglycerin* (Nitrostat*) 0.4 Mg Tab.subl, 1 TAB SL Q5M Y for CHEST PAIN for 1 Day Prov:NAHUM BLAIR MD 12/21/16 Lisinopril* (Lisinopril*) 5 Mg Tablet, 2.5 MG NGT DAILY for 1 Day, TAB Prov:NAHUM BLAIR MD 12/21/16 Carvedilol* (Carvedilol*) 6.25 Mg Tablet, 6.25 MG PO BID for 1 Day, TAB Prov:NAHUM BLAIR MD 12/21/16 Atorvastatin* (Atorvastatin*) 80 Mg Tablet, 80 MG PO HS for 1 Day, TAB Prov:NAHUM BLAIR MD 12/21/16 Enoxaparin Sodium* (Enoxaparin Sodium*) 30 Mg/0.3 Ml Syringe, 30 MG SC DAILY for 1 Day Prov:NAHUM BLAIR MD 12/21/16 Amiodarone Hcl* (Amiodarone Hcl*) 200 Mg Tablet, 200 MG PO BID for 1 Day, TAB Prov:NAHUM BLAIR MD 12/21/16 Reported Medications Oxycodone HCl/Acetaminophen (Percocet 5-325 mg Tablet) 1 Each Tablet, 1 EACH PO Q4 Y for SEVERE PAIN LEVEL 7-10, TAB 01/13/17 Morphine Sulfate (Morphine Sulfate ER) 30 Mg Cap.er.pel, 30 MG PO TID, CAP 12/02/16 Pregabalin* (Lyrica*) 100 Mg Capsule, 100 MG PO BID, CAP 12/02/16 Duloxetine Hcl* (Cymbalta*) 20 Mg Capsule.dr, 20 MG PO DAILY, CAP 12/02/16 Aspirin (Low Dose Aspirin) 81 Mg Tablet.dr, 81 MG PO DAILY, #30 TAB 12/02/16 Temazepam* (Restoril*) 15 Mg Capsule, 15 MG PO HS Y for INSOMNIA, CAP 12/02/16 Discontinued Reported Medications Hydrocodone/Acetaminophen ([place] 10-325 Tablet) 1 Each Tablet, 1 EACH PO Q4 Y for PAIN, TAB 12/02/16 Allergies Allergies: Coded Allergies: No Known Allergy (Verified , 12/02/16) PMhx/Soc History of Surgery: Yes (R HIP, R FOOT, R SHOULDER, BACK, BREAST RED, CATARACT) Anesthesia Reaction: No Hx Neurological Disorder: No Hx Respiratory Disorders: No Hx Cardiac Disorders: Yes (HTN, [place] 2017, DM) Hx Psychiatric Problems: Yes (DEPRESSION) Hx Miscellaneous Medical Probl: Yes ( cataracts) Hx Alcohol Use: No Hx Substance Use: No Hx Tobacco Use: Yes (11/2016) Smoking Status: Former smoker Physical Exam Vitals Vital Signs Date Time Temp Pulse Resp B/P Pulse Ox O2 Delivery O2 Flow Rate FiO2 01/13/17 12:28 Nasal Cannula 2.0 01/13/17 12:28 99.1 97 26 117/100 98 Nasal Cannula 2.0 01/13/17 11:50 Nasal Cannula 2 01/13/17 10:25 98.9 97 26 144/82 90 Physical Exam Const: [] Mild to moderate distress, tachypnea Head: Atraumatic Eyes: Normal Conjunctiva ENT: Normal External Ears, Nose and Mouth. Neck: Full range of motion..~ No meningismus. Resp: Breath sounds decreased at bilateral bases, mild tachypnea Cardio: Regular rate and rhythm, no murmurs Abd: Soft, non tender, non distended. Normal bowel sounds Skin: No petechiae or rashes Back: No midline or flank tenderness Ext: No cyanosis, or edema, left leg with 3 cm area of open sutured wound, no bleeding, no surrounding erythema or signs of infection. Scant drainage of serous fluid. Neur: Awake and alert and oriented 3, no focal deficits Psych: Normal Mood and Affect Result Diagram: 01/13/17 1125 01/13/17 1225 Results 24 hrs Laboratory Tests Test 01/13/17 11:25 01/13/17 12:25 01/13/17 13:42 White Blood Count 11.610^3/ul Red Blood Count 3.6010^6/ul Hemoglobin 10.4g/dl Hematocrit 33.1% Mean Corpuscular Volume 91.9fl Mean Corpuscular Hemoglobin 28.9pg Mean Corpuscular Hemoglobin Concent 31.4g/dl Red Cell Distribution Width 15.9% Platelet Count 60005^3/UL Mean Platelet Volume 9.2fl Neutrophils % 67.5% Lymphocytes % 21.2% Monocytes % 8.9% Eosinophils % 0.3% Basophils % 0.7% Nucleated Red Blood Cells % 0.0/100WBC Neutrophils # 7.810^3/ul Lymphocytes # 2.510^3/ul Monocytes # 1.010^3/ul Eosinophils # 0.010^3/ul Basophils # 0.110^3/ul Nucleated Red Blood Cells # 0.010^3/ul Prothrombin Time 12.1Sec Prothrombin Time Ratio 0.9 INR International Normalized Ratio 0.90 Activated Partial Thromboplast Time 20.6Sec Sodium Level 141mmol/L Potassium Level 3.0mmol/L Chloride Level 95mmol/L Carbon Dioxide Level 34mmol/L Anion Gap 15 Blood Urea Nitrogen 5mg/dl Creatinine 0.53mg/dl Glucose Level 208mg/dl Lactic Acid Level 2.6mmol/L Calcium Level 9.0mg/dl Troponin I 0.037ng/ml B-Type Natriuretic Peptide 1750PG/ML Blood Gas Specimen Source Blood arterial Arterial Blood Date Drawn 01/13/2017 2:30:56 PM Arterial Blood pH (Temp corrected) 7.432 Arterial Blood pCO2 (Temp correct) 49.8mmhg Arterial Blood pO2 (Temp corrected) 87.2mmHG Arterial Blood HCO3 32.5mmol/L Arterial Blood Base Excess 7.1mmol/L Arterial Blood Oxygen Saturation 96.0mmHG Amor Test ACCEPTAB Arterial Blood Gas Puncture Site Right Radial Arterial Blood Carboxyhemoglobin 0.1% Arterial Blood Methemoglobin 0.4% Blood Gas A-a O2 Differential 46.4mmHg Oxyhemoglobin Percent 95.5% Total Hemoglobin 11.4g/dl Blood Gas Temperature 37.0C Blood Gas Modality NASAL CANNULA FiO2 27.0% Blood Gas Notified Whom JLD Blood Gas Notified Time 01/13/2017 2:41:24 PM Current Medications Medications (Trade) Dose Ordered Sig/[place] Route PRN Reason Start Time Stop Time Status Last Admin Dose Admin Potassium Chloride (Klor-Con 20) 40 meq ONCE STAT PO 01/13/17 13:16 01/13/17 13:20 DC 01/13/17 14:09 Ondansetron HCl (Zofran Inj) 4 mg ER BRIDGE PRN IV NAUSEA AND/OR VOMITING 01/13/17 14:30 01/14/17 14:29 Acetaminophen (Tylenol Tab) 650 mg ER BRIDGE PRN PO MILD PAIN/FEVER 01/13/17 14:30 01/14/17 14:29 Procedures/MDM Tachypnea and respiratory distress in patient with recent myocardial infarction. Patient may also have a mild case of pneumonia with sepsis. Sepsis diagnosis was not made until 124 when laboratories had been reviewed and chest x-ray was received. There is what may represent an infiltrate in the left lower lung. Patient was given Zosyn for this. She was also given IV fluids but after 1-1/2 L had Rales at her lung bases that were not present prior to fluid administration and so no further fluid was given. She had hypokalemia and was given by mouth potassium. She'll be admitting for further monitoring and treatment. Urine ABG but initially respiratory was unable. They're going to send him more expressed respiratory therapist noted to attempted and get better information on the patient's respiratory problems. She is also given be admitted for serial troponin trending. Her leg wound will also be evaluated although there are no current signs of infection or bleeding. EKG interpretation: Sinus origin of rhythm with heavy artifact and premature a chill contractions, possible ST depressions in lateral leads concerning for ischemia that were not present on her prior EKG in December 02. glaze handler interpretation: Normal sinus rhythm without arrhythmia Chest x-ray interpretation: Left lobe opacity is possible infiltrate, no pneumothorax, no widened mediastinum, no fractures. Total care time 36 minutes: This includes time spent managing pneumonia with sepsis and recent heart attack patient with respiratory distress, very careful fluid administration with signs of fluid overload, antibiotic administration, multiple visits the patient's bedside to reassess status,. Chart review, discussion with patient and and admitting doctor. This does not include any billable procedures. Departure Diagnosis: Primary Impression: Respiratory distress Additional Impressions: Sepsis due to pneumonia Hypokalemia Acute electrocardiogram changes Lactic acidosis Dehiscence of external operation wound Condition: Serious RADHA VALENTE DO January 13, 2017 15:31
[2017-01-13] MEDS ORDERED: ASPIRIN 81 MG TAB PO ONE (16:00)
--- NOTE | 2017-01-13 16:55 | CONS ---
Date/Time of Note Date/Time of Note DATE: 01/13/17 TIME: 16:47 Assessment/Plan Assessment/Plan Additional Assessment/Plan Sepsis Shortness of breath Possible surgical incision infection Multivessel coronary artery disease status post CABG Cardiomyopathy with ejection fraction 50% Paroxysmal atrial fibrillation Diabetes -Patient complaining of intermittent shortness of breath. Chest x-ray with possible infiltrate versus atelectasis but unclear. Will obtain CT chest to better evaluate. Patient's left lower extremity at incision site with drainage and erythema with induration. Patient also with leukocytosis and elevated lactic acid. Would obtain venous Doppler study to rule out DVT left lower extremity and CT scan of left lower extremity. Would recommend infectious disease evaluation. Patient denies any chest pain. ECG unfortunately with significant artifact and asked for them to currently repeat. Continue aspirin, statin therapy, [id number]. Consultation Date/Type/Reason Admit Date/Time Type of Consultation: cv Reason for Consultation Shortness of breath and leg pain Hx of Present Illness This is a 66-year-old female with past medical history of myocardial infarction status post recent CABG, respiratory failure with prolonged hospital stay who presents with multiple complaints. She complains of drainage from the incision site for her left leg at the site of the saphenous vein graft removal. This began approximately 4-5 days ago. She complains of pain in her leg. She furthermore complains of shortness of breath off and on over the past few weeks. Unfortunately patient is a poor historian and does not give a consistent history. She currently denies any shortness of breath but at times tells me she is short of breath. She denies any fevers or chills. She denies any chest pain. She denies any abdominal pain, nausea. As per the patient and friend at bedside, she tells me she has not walked since she left the hospital almost a month ago. She is very weak and requesting physical therapy. 12 point review of systems was performed with all pertinent positives and negatives mentioned above and all else is negative Past Medical History Myocardial infarction Multivessel coronary artery disease status post CABG Cardiomyopathy with ejection fraction 50% Paroxysmal atrial fibrillation Diabetes Past Surgical History Past Surgical Hx: coronary bypass surgery Family History Significant Family History: no pertinent family hx Social History Smoking Status: Former smoker Drug Use: other (History of) Other Social History Lives at home Exam/Review of Systems Vital Signs Vitals Vital Signs Date Time Temp Pulse Resp B/P Pulse Ox O2 Delivery O2 Flow Rate FiO2 01/13/17 15:45 99.4 87 23 150/76 98 Nasal Cannula 2.0 Exam No apparent distress Constitutional: alert, obese, oriented Head: normocephalic Respiratory: other (Coarse breath sounds bilaterally, no wheezing) Cardiovascular: other (S1-S2 heard, no murmurs appreciated), regular rate and rhythm Gastrointestinal: bowel sounds, non-tender, other (No guarding), soft Extremities: other (Left lower extremity with opening of surgical incision on the medial side, there is erythema and warmth with induration of the medial and posterior leg) Results Result Diagram: 01/13/17 1125 01/13/17 1225 Results 24 hrs Laboratory Tests Test 01/13/17 11:25 01/13/17 12:25 01/13/17 13:42 White Blood Count 11.6 #H Red Blood Count 3.60 L Hemoglobin 10.4 L Hematocrit 33.1 L Mean Corpuscular Volume 91.9 Mean Corpuscular Hemoglobin 28.9 L Mean Corpuscular Hemoglobin Concent 31.4 L Red Cell Distribution Width 15.9 H Platelet Count 725 #H Mean Platelet Volume 9.2 # Neutrophils % 67.5 Lymphocytes % 21.2 Monocytes % 8.9 Eosinophils % 0.3 Basophils % 0.7 Nucleated Red Blood Cells % 0.0 Neutrophils # 7.8 H Lymphocytes # 2.5 Monocytes # 1.0 H Eosinophils # 0.0 Basophils # 0.1 Nucleated Red Blood Cells # 0.0 Prothrombin Time 12.1 L Prothrombin Time Ratio 0.9 INR International Normalized Ratio 0.90 Activated Partial Thromboplast Time 20.6 L Sodium Level 141 Potassium Level 3.0 L Chloride Level 95 L Carbon Dioxide Level 34 H Anion Gap 15 Blood Urea Nitrogen 5 L Creatinine 0.53 Glucose Level 208 Lactic Acid Level 2.6 H Calcium Level 9.0 Troponin I 0.037 B-Type Natriuretic Peptide 1750 H Blood Gas Specimen Source Blood arterial Arterial Blood Date Drawn 01/13/2017 2:30:56 PM Arterial Blood pH (Temp corrected) 7.432 Arterial Blood pCO2 (Temp correct) 49.8 H Arterial Blood pO2 (Temp corrected) 87.2 Arterial Blood HCO3 32.5 H Arterial Blood Base Excess 7.1 H Arterial Blood Oxygen Saturation 96.0 Amor Test ACCEPTAB Arterial Blood Gas Puncture Site Right Radial Arterial Blood Carboxyhemoglobin 0.1 Arterial Blood Methemoglobin 0.4 Blood Gas A-a O2 Differential 46.4 H Oxyhemoglobin Percent 95.5 Total Hemoglobin 11.4 L Blood Gas Temperature 37.0 Blood Gas Modality NASAL CANNULA FiO2 27.0 Blood Gas Notified Whom JLD Blood Gas Notified Time 01/13/2017 2:41:24 PM Manuel Escudero DO January 13, 2017 16:55
[2017-01-13 17:30] VITALS: TEMP 99.4
--- NOTE | 2017-01-13 17:30 | RADRPT ---
PROCEDURE: US DVT. CLINICAL INDICATION: Left lower extremity swelling. TECHNIQUE: Multiple longitudinal and transverse images of the left lower extremity veins were obta ined with paredes scale and color Doppler imaging. 2D grayscale measurements with compression, color D oppler flow, and augmentation was performed. The calf veins were interrogated as well. COMPARISON: No prior studies are available for comparison. FINDINGS: The left common femoral, superficial femoral and popliteal veins are normally compressible throughou t. Color flow demonstrates normal filling of the vessel. Normal waveforms are visualized and there is normal response to augmentation. IMPRESSION: 1. No evidence of a deep vein thrombosis involving the left lower extremity. RPTAT: [facility] Physician Minnie Date Time Electronically viewed and signed by Physician Minnie on 01/13/2017 17:30 /
[2017-01-13 18:45] VITALS: PULSE 88
--- NOTE | 2017-01-13 18:48 | RADRPT ---
PROCEDURE: CT Chest without contrast. CLINICAL INDICATION: Chest pain, left retrocardiac opacity seen on recent chest x-ray. TECHNIQUE: A CT scan of the chest without contrast was performed. Coronal and sagittal reformatted images were obtained from the axial source images. CTDIvol: 16.64 mGy. DLP: 601.65 mGy-cm. One or more of the following dose reduction techniques were used: - Automated exposure control. - Adjustment of the mA and/or kV according to patient size. - Use of iterative reconstruction technique. COMPARISON: Chest x-ray dated 01/13/2017. FINDINGS: There is no suspicious thyroid lesion. No thoracic lymphadenopathy is seen. The trachea and mainst em bronchi are patent. The patient is status post median sternotomy and CABG. The heart is enlarge d. There is no pericardial effusion. There is a small left pleural effusion and extensive left lower lobe consolidation with air bronchog samir. Mild atelectasis is also noted in the right lower lobe. There is no pneumothorax. The patient is status post cholecystectomy. There is no suspicious osseous lesion. IMPRESSION: 1. Small left pleural effusion. 2. Extensive left lower lobe consolidation with air bronchograms, possibly representing pneumonia a nd/or atelectasis. Repeat imaging should be performed following completion of appropriate therapy t o confirm resolution of this finding. 3. Mild right lower lobe atelectasis. 4. Cardiomegaly. 5. Status post CABG and cholecystectomy. RPTAT: [facility] .Ryley Ruiz MD, MD Date Time Electronically viewed and signed by .Ryley Ruiz MD, on 01/13/2017 18:48 .R/
[2017-01-13 18:58] VITALS: BP 139/73; RESP 17
--- NOTE | 2017-01-13 19:04 | HP ---
Date/Time of Note Date/Time of Note DATE: 01/13/17 TIME: 18:53 Assessment/Plan Lines/Catheters IV Catheter Type (from Nrsg): Saline Lock Assessment/Plan Assessment/Plan * Chest pain r/o ACS * L wound infection and cellulitis * Coronary artery disease s/p CABG 12/07/2016 * hypertension * dyslipidemia * diabetes mellitus with diabetic neuropathy * major depression * chronic pain syndrome * insomnia * obesity * nicotine dependency * Hypokalemia PLAN: admit tele / ACS rule out / Cardio conasult / 2D echo wound culture / abx / Id consult / blood cultures Home meds / diabetic diet / SSI pain control/ antiemetics/ antipyretics/ supportive care PROPHYLAXIS: PPI / lovenox HPI/ROS Admit Date/Time Admit Date/Time Hx of Present Illness This is a very pleasant 66-year-old lady with a past medical history of coronary artery disease, hypertension, dyslipidemia, diabetes mellitus, diabetic neuropathy, major depression, chronic pain syndrome, insomnia , obesity, nicotine dependency who is unfortunately a poor historian for home where managing for 2 different reasons. She complains of chest pain associated with some shortness of breath but has had no fever. She does have chronic cough and that is only occasionally productive of sputum. She has no blood in her sputum. She denies nausea, abdominal pain, dysuria or hematuria. She had a saphenous vein graft done for her CABG, and at the surgical site she has been having oozing and redness suggestive of cellulitis and infection. She is being admitted for both reasons. ROS 12 point review if systems was done and pertinent findings are as noted. PMH/Family/Social Past Medical History Past Surgical History * R hip surgery * R foot surgery * Breast surgery * Cataract surgery * cholecystectomy Past Surgical Hx: coronary bypass surgery Social History Alcohol Use: none Smoking Status: Former smoker Drug Use: other Exam/Review of Systems Vital Signs Vitals Vital Signs Date Time Temp Pulse Resp B/P Pulse Ox O2 Delivery O2 Flow Rate FiO2 01/13/17 18:45 88 01/13/17 17:30 99.4 25 115/51 96 Nasal Cannula 2.0 Exam Exam GENERAL: Patient is alert, oriented x 3, in no apparent distress; obese. Patient is able to sit up unassisted.Patient makes good eye contact, is conversant, interactive, coherent. Patient appears calm and comfortable and is able to follow commands. HEENT: Oropharynx is clear. There is no carotid bruit, no masses. Patient's pupils are equal, round and reactive to light bilaterally. Extraocular motions are intact. There is no scleral icterus. There is no facial asymmetry. NECK: Supple. LUNGS: Clear to auscultation bilaterally with good air entry. No Wheezes or crackles. HEART: S1, S2. No murmur, gallops or rubs. Regular rate and rhythm. ABDOMEN: Soft, nontender. Normoactive bowel sounds. There are no stigmata of chronic liver disease. BACK: no costovertebral angle tenderness. GENITOURINARY: Deferred. EXTREMITIES: (Left lower extremity with opening of surgical incision on the medial side, there is erythema and warmth with induration of the medial and posterior leg) NEUROLOGIC: The patient has no lateralizing signs. Cranial nerves II-XII are intact. SKIN: Otherwise, unremarkable. Labs Result Diagram: 01/13/17 1125 01/13/17 1225 Medications Medications Current Medications Aspirin (Aspirin) 81 mg DAILY PO ; Start 01/14/17 at 09:00 Atorvastatin Calcium (Lipitor) 40 mg HS PO ; Start 01/13/17 at 21:00 Metoprolol Tartrate (Lopressor) 25 mg BID PO ; Start 01/13/17 at 21:00 Procedures Procedures Laboratory Tests Test 01/13/17 11:25 01/13/17 12:25 01/13/17 13:42 White Blood Count 11.610^3/ul Red Blood Count 3.6010^6/ul Hemoglobin 10.4g/dl Hematocrit 33.1% Mean Corpuscular Volume 91.9fl Mean Corpuscular Hemoglobin 28.9pg Mean Corpuscular Hemoglobin Concent 31.4g/dl Red Cell Distribution Width 15.9% Platelet Count 08974^3/UL Mean Platelet Volume 9.2fl Neutrophils % 67.5% Lymphocytes % 21.2% Monocytes % 8.9% Eosinophils % 0.3% Basophils % 0.7% Nucleated Red Blood Cells % 0.0/100WBC Neutrophils # 7.810^3/ul Lymphocytes # 2.510^3/ul Monocytes # 1.010^3/ul Eosinophils # 0.010^3/ul Basophils # 0.110^3/ul Nucleated Red Blood Cells # 0.010^3/ul Prothrombin Time 12.1Sec Prothrombin Time Ratio 0.9 INR International Normalized Ratio 0.90 Activated Partial Thromboplast Time 20.6Sec Sodium Level 141mmol/L Potassium Level 3.0mmol/L Chloride Level 95mmol/L Carbon Dioxide Level 34mmol/L Anion Gap 15 Blood Urea Nitrogen 5mg/dl Creatinine 0.53mg/dl Glucose Level 208mg/dl Lactic Acid Level 2.6mmol/L Calcium Level 9.0mg/dl Troponin I 0.037ng/ml B-Type Natriuretic Peptide 1750PG/ML Blood Gas Specimen Source Blood arterial Arterial Blood Date Drawn 01/13/2017 2:30:56 PM Arterial Blood pH (Temp corrected) 7.432 Arterial Blood pCO2 (Temp correct) 49.8mmhg Arterial Blood pO2 (Temp corrected) 87.2mmHG Arterial Blood HCO3 32.5mmol/L Arterial Blood Base Excess 7.1mmol/L Arterial Blood Oxygen Saturation 96.0mmHG Amor Test ACCEPTAB Arterial Blood Gas Puncture Site Right Radial Arterial Blood Carboxyhemoglobin 0.1% Arterial Blood Methemoglobin 0.4% Blood Gas A-a O2 Differential 46.4mmHg Oxyhemoglobin Percent 95.5% Total Hemoglobin 11.4g/dl Blood Gas Temperature 37.0C Blood Gas Modality NASAL CANNULA FiO2 27.0% Blood Gas Notified Whom JLD Blood Gas Notified Time 01/13/2017 2:41:24 PM PROCEDURE: Chest Radiograph. CLINICAL INDICATION: Chest pain TECHNIQUE: Single frontal chest radiograph. COMPARISON: Chest radiograph 12/21/2016 FINDINGS: Patient is status post sternotomy and CABG. The heart is mildly enlarge. There is dense left retrocardiac mass seen which may represent infiltrate, effusion, or dense atelectasis. There is stable left mid lung zone atelectasis. The right lung is grossly clear. The bones are intact. IMPRESSION: 1. Left retrocardiac opacification which may be related to effusion, atelectasis, or infiltrate. 2. Cardiomegaly. 3. Left mid lung zone atelectasis. RPTAT: KK .Kalin Choudhary MD, MD Date Time Electronically viewed and signed by .Kalin Choudhary MD, MD on 2016 12:39 .B/ CC: RADHA VALENTE DO CLINICAL INDICATION: Chest pain, left retrocardiac opacity seen on recent chest x-ray. TECHNIQUE: A CT scan of the chest without contrast was performed. Coronal and sagittal reformatted images were obtained from the axial source images. CTDIvol : 16.64 mGy. DLP: 601.65 mGy-cm. One or more of the following dose reduction techniques were used: - Automated exposure control. - Adjustment of the mA and/or kV according to patient size. - Use of iterative reconstruction technique. COMPARISON: Chest x-ray dated 01/13/2017. FINDINGS: There is no suspicious thyroid lesion. No thoracic lymphadenopathy is seen. The trachea and mainstem bronchi are patent. The patient is status post median sternotomy and CABG. The heart is enlarged. There is no pericardial effusion. There is a small left pleural effusion and extensive left lower lobe consolidation with air bronchograms. Mild atelectasis is also noted in the right lower lobe. There is no pneumothorax. The patient is status post cholecystectomy. There is no suspicious osseous lesion. IMPRESSION: 1. Small left pleural effusion. 2. Extensive left lower lobe consolidation with air bronchograms, possibly representing pneumonia and/or atelectasis. Repeat imaging should be performed following completion of appropriate therapy to confirm resolution of this finding. 3. Mild right lower lobe atelectasis. 4. Cardiomegaly. 5. Status post CABG and cholecystectomy. RPTAT: HTAR .Ryley Ruiz MD, Date Time Electronically viewed and signed by .Ryley Ruiz MD, MD on 01/13/2017 18:48 .R/ CC: Manuel Escudero DO PROCEDURE: US DVT. CLINICAL INDICATION: Left lower extremity swelling. TECHNIQUE: Multiple longitudinal and transverse images of the left lower extremity veins were obtained with paredes scale and color Doppler imaging. 2D grayscale measurements with compression, color Doppler flow, and augmentation was performed. The calf veins were interrogated as well. COMPARISON: No prior studies are available for comparison. FINDINGS: The left common femoral, superficial femoral and popliteal veins are normally compressible throughout. Color flow demonstrates normal filling of the vessel. Normal waveforms are visualized and there is normal response to augmentation. IMPRESSION: 1. No evidence of a deep vein thrombosis involving the left lower extremity. RPTAT: AACC Branden Michel, Physician Date Time Electronically viewed and signed by Branden Michel, Physician on 01/13/2017 17: 30 JH/ CC: Manuel Escudero BOLATITO M. January 13, 2017 19:04
--- NOTE | 2017-01-13 19:05 | RADRPT ---
PROCEDURE: CT, Extremity. CLINICAL INDICATION: Induration and drainage from incision status post CABG. TECHNIQUE: Multiple contiguous axial CT images of the left lower extremity were obtained without t he administration of intravenous contrast. Coronal and sagittal reconstructions were subsequently o btained. CTDIvol: 18.44 mGy and Total Exam DLP: 784.75 mGy-cm. One or more of the following dose reduction techniques were utilized: - Automated exposure control. - Adjustment of the mA and/or kV according to patient size. - Use of iterative reconstruction technique. COMPARISON: None. FINDINGS: Multiple small surgical clips are seen within the deep subcutaneous soft tissues medial to the femor al condyle. Extensive subcutaneous edema is seen throughout the left lower extremity above and below the level of the knee. There is a very small accumulation of fluid measuring approximately 1.0 cm beneath the incision. A tiny pocket of air is observed. There is no evidence of large organized fl uid collection. The visualized intramuscular compartments are unremarkable. Vascular calcification s are present. Mild knee joint space narrowing is observed. Marginal osteophytes are present. A thick curvilinear calcification adjacent to the medial femoral condyle is observed and may reflect prior ligamentous injury. IMPRESSION: Extensive superficial and deep subcutaneous edema throughout the visualized portion of the left lowe r extremity without evidence of large organized fluid collection. There is a very small accumulatio n of fluid measuring approximately 1.0 cm in greatest dimension immediately beneath the skin incisio n. Osteoarthritis of the knee. Atherosclerosis. RPTAT: HLST .Yeni Burgos MD, MD Date Time Electronically viewed and signed by .Yeni Burgos MD, on 01/13/2017 19:05 .T/
[2017-01-13] MEDS ORDERED: AL HYDROX/MG HYDROX/SIMETH 30 ML CUP PO PRN (19:30)
[2017-01-13] MEDS ORDERED: NITROGLYCERIN (SL) 0.4 MG TAB SL PRN (19:30)
[2017-01-13] MEDS ORDERED: POTASSIUM CHLORIDE 20 MEQ in SOD CHLORIDE 0.9% 100 ML IVPB ONE (19:30)
[2017-01-13] MEDS ORDERED: VANCOMYCIN IV PER PHARMACY XX SCH (19:30)
[2017-01-13] MEDS ORDERED: GLUCOSE GEL 15 GRAM TUBE PO PRN ×2 (20:00)
[2017-01-13] MEDS ORDERED: GLUCAGON 1 MG INJ IM PRN (20:00)
[2017-01-13] MEDS ORDERED: ZOLPIDEM 5 MG TAB PO PRN (20:00)
[2017-01-13] MEDS ORDERED: DEXTROSE 50% 50 ML SYRINGE IV PRN ×2 (20:00)
[2017-01-13] MEDS ORDERED: GLUCOSE GEL 15 GRAM TUBE BUCCAL PRN (20:00)
[2017-01-13 20:03] VITALS: Ht 162.6 cm; Wt 100.0 kg
[2017-01-13 20:12] VITALS: BP 144/68; RESP 20
[2017-01-13 20:42] VITALS: PULSE 85
[2017-01-13] MEDS: INSULIN ASPART [NOVOLOG] 3 ML PEN SC SCH (21:00)
[2017-01-13] MEDS ORDERED: ATORVASTATIN 80 MG TAB PO SCH (21:00)
[2017-01-13] MEDS ORDERED: VANCOMYCIN 2 GM in SOD CHLORIDE 0.9% 500 ML IVPB SCH (21:00)
[2017-01-13] MEDS: LEVOFLOXACIN 500MG/D5W (PMX) 100 ML IVPB SCH (21:16)
[2017-01-13] MEDS: DOCUSATE SODIUM 100 MG CAP PO SCH (21:19)
[2017-01-13] MEDS: PREGABALIN 25 MG CAP PO SCH (21:19)
[2017-01-13] MEDS: ATORVASTATIN 40 MG TAB PO SCH (21:19)
[2017-01-13] MEDS: MONTELUKAST 10 MG TAB NGT SCH (21:20)
[2017-01-13] MEDS: METOPROLOL 25 MG TAB PO SCH (21:20)
[2017-01-13] MEDS: AMIODARONE 200 MG TAB PO SCH (21:20)
[2017-01-13] MEDS: morphine (ER) 30 MG TAB PO SCH (21:22)
[2017-01-13] MEDS: INSULIN DETEMIR [LEVEMIR] 3ML CART SC SCH (21:24)
[2017-01-13] MEDS ORDERED: DEXTROSE 5%-0.45% NACL 1,000 ML IV SCH (23:00)
[2017-01-13 23:29] LABS: CK-MB 3.19 ng/ml (0.0-2.4)
[2017-01-13 23:32] LABS: TROPONIN-I 0.038 ng/ml (0.00-0.12)
[2017-01-14] VITALS (12 sets, daily range): BP systolic 115–127; BP diastolic 58–65; PULSE 83–99; RESP 16–20
[2017-01-14] MEDS: ACCU-CHEK XX SCH (02:00)
[2017-01-14] MEDS: DOCUSATE SODIUM 100 MG CAP PO SCH ×2 (07:30→19:46)
[2017-01-14] MEDS: INSULIN ASPART [NOVOLOG] 3 ML PEN SC SCH ×4 (07:51→20:26)
[2017-01-14 08:18] LABS: ADD SCAN DIFF NO
[2017-01-14] MEDS ORDERED: FUROSEMIDE 40 MG INJ IV ONE (08:30)
[2017-01-14 08:35] LABS: PROTIME 13.2 Sec (12.2-14.2)
[2017-01-14 08:36] LABS: BASOPHIL # 0.1 10^3/ul (0.0-0.1); BASOPHILS % 0.4 % (0.0-2.0); EOSINOPHILS % 0.3 % (0.0-7.0); HEMATOCRIT 31.1 % (37.0-47.0); HEMOGLOBIN 9.8 g/dl (12.0-16.0); LYMPHOCYTES # 1.2 10^3/ul (0.8-2.9); LYMPHOCYTES % 7.9 % (15.0-51.0); MEAN CORPUSCULAR HEMOGLOBIN 29.1 pg (29.0-33.0); MEAN CORPUSCULAR HGB CONC 31.5 g/dl (32.0-37.0); MEAN CORPUSCULAR VOLUME 92.3 fl (82.0-101.0); MEAN PLATELET VOLUME 9.2 fl (7.4-10.4); MONOCYTE # 0.9 10^3/ul (0.3-0.9); MONOCYTES % 6.3 % (0.0-11.0); NEUTROPHIL # 12.4 10^3/ul (1.6-7.5); NEUTROPHILS % 84.5 % (39.0-77.0); PARTIAL THROMBOPLASTIN TIME 28.1 Sec (25.0-35.0); PLATELET COUNT 630 10^3/UL (140-415); RED BLOOD COUNT 3.37 10^6/ul (4.20-5.40); WHITE BLOOD COUNT 14.6 10^3/ul (4.8-10.8)
--- NOTE | 2017-01-14 08:43 | RADRPT ---
PROCEDURE: Chest Radiograph. CLINICAL INDICATION: Shortness of breath TECHNIQUE: Single frontal chest radiograph. COMPARISON: Chest radiograph 01/13/2017. CT chest 01/13/2017. FINDINGS: The patient is status post sternotomy. Heart size is poorly evaluated. Atherosclerotic calcificati ons are present. There is persistent dense left retrocardiac opacification consistent with small pl eural effusion and consolidation seen on recent cross-sectional imaging. The right lung remains sky r. There is resorption of the distal right clavicle which is stable. The bones are otherwise int act. IMPRESSION: 1. Stable radiographic appearance of chest compared to 01/13/2017. RPTAT: KK .Kalin Choudhary MD, MD Date Time Electronically viewed and signed by .Kalin Choudhary MD, on 01/14/2017 08:43 .B/
[2017-01-14 08:47] LABS: CALCIUM 8.1 mg/dl (8.4-10.2); CREATININE 0.41 mg/dl (0.44-1.00); POTASSIUM 4.1 mmol/L (3.5-5.1)
[2017-01-14] MEDS: DULOXETINE 20 MG CAP DR PO SCH (08:59)
[2017-01-14] MEDS: PREGABALIN 25 MG CAP PO SCH ×2 (08:59→20:18)
[2017-01-14] MEDS: morphine (ER) 30 MG TAB PO SCH ×3 (09:00→20:18)
[2017-01-14] MEDS: ASPIRIN 81 MG TAB PO SCH (09:00)
[2017-01-14] MEDS ORDERED: ASPIRIN (EC) 81 MG TAB PO SCH (09:00)
[2017-01-14] MEDS: AMIODARONE 200 MG TAB PO SCH ×2 (09:01→20:17)
[2017-01-14] MEDS: LISINOPRIL 5 MG TAB NGT SCH (09:01)
[2017-01-14] MEDS: VANCOMYCIN 1.25 GM in SOD CHLORIDE 0.9% 250 ML IVPB SCH ×2 (09:02→21:37)
[2017-01-14] MEDS: METOPROLOL 25 MG TAB PO SCH ×2 (09:02→20:17)
--- NOTE | 2017-01-14 09:13 | PN ---
Date/Time of Note Date/Time of Note DATE: 01/14/17 TIME: 09:10 Assessment/Plan VTE Prophylaxis VTE Prophylaxis Intervention: LMWH Lines/Catheters IV Catheter Type (from Nrsg): Saline Lock Urinary Cath still in place: No Assessment/Plan Assessment/Plan 66 yo F who presented with SOB managed for 1. Chest pain r/o ACS 2. L sided Persistent pneumonia 3. L calf wound infection and cellulitis 4. Coronary artery disease s/p CABG 12/07/2016 5. Hypertension : controlled 6. Dyslipidemia 7. Diabetes mellitus with diabetic neuropathy 8. Chronic depression: stable 9. Obesity / ?PCOS 10. Nicotine dependency 11. Hypomagnesemia PLAN: IV lasix x1 / CXR/ complete ACS r/o Bronchodilator therapy / cont abx for cellulitis and pneumonia Calorie controlled diet Replace lytes Further interventions per clinical course pain control/ antiemetics/ antipyretics/ supportive care PROPHYLAXIS: PPI / lovenox Subjective 24 Hr Interval Summary Free Text/Dictation patient having chest pain and difficulty breathing ENT: pain Respiratory: shortness of breath Exam/Review of Systems Vital Signs Vitals Vital Signs Date Time Temp Pulse Resp B/P Pulse Ox O2 Delivery O2 Flow Rate FiO2 01/14/17 08:18 99 01/14/17 07:35 98.0 16 127/65 97 01/13/17 17:30 Nasal Cannula 2.0 Intake and Output 01/13/17 01/13/17 01/14/17 15:00 23:00 07:00 Intake Total 200 ml 960 ml Balance 200 ml 960 ml Exam Constitutional: alert, distress, obese, oriented, other (male distribution of facial hair) Psych: No anxiety Eyes: PERRL, No icteric ENMT: mucosa pink and moist Neck: non-tender, supple, No bruits, No jvd Respiratory: diminished breath sounds, other (use of accesory muscles), No crackles/rales, No wheezing Cardiovascular: No murmurs/extra sounds, No regular rate and rhythm (tachy) Extremities: edema (on L LE with old surgical scar with yellowish mild drainage, less erythema) Results Result Diagram: 01/14/17 0800 01/14/17 0800 Results 24 hrs Laboratory Tests Test 01/13/17 11:25 01/13/17 12:25 01/13/17 13:42 01/13/17 21:07 White Blood Count 11.6 #H Red Blood Count 3.60 L Hemoglobin 10.4 L Hematocrit 33.1 L Mean Corpuscular Volume 91.9 Mean Corpuscular Hemoglobin 28.9 L Mean Corpuscular Hemoglobin Concent 31.4 L Red Cell Distribution Width 15.9 H Platelet Count 725 #H Mean Platelet Volume 9.2 # Neutrophils % 67.5 Lymphocytes % 21.2 Monocytes % 8.9 Eosinophils % 0.3 Basophils % 0.7 Nucleated Red Blood Cells % 0.0 Neutrophils # 7.8 H Lymphocytes # 2.5 Monocytes # 1.0 H Eosinophils # 0.0 Basophils # 0.1 Nucleated Red Blood Cells # 0.0 Prothrombin Time 12.1 L Prothrombin Time Ratio 0.9 INR International Normalized Ratio 0.90 Activated Partial Thromboplast Time 20.6 L Sodium Level 141 Potassium Level 3.0 L Chloride Level 95 L Carbon Dioxide Level 34 H Anion Gap 15 Blood Urea Nitrogen 5 L Creatinine 0.53 Glucose Level 208 Lactic Acid Level 2.6 H Calcium Level 9.0 Troponin I 0.037 B-Type Natriuretic Peptide 1750 H Blood Gas Specimen Source Blood arterial Arterial Blood Date Drawn 01/13/2017 2:30:56 PM Arterial Blood pH (Temp corrected) 7.432 Arterial Blood pCO2 (Temp correct) 49.8 H Arterial Blood pO2 (Temp corrected) 87.2 Arterial Blood HCO3 32.5 H Arterial Blood Base Excess 7.1 H Arterial Blood Oxygen Saturation 96.0 Amor Test ACCEPTAB Arterial Blood Gas Puncture Site Right Radial Arterial Blood Carboxyhemoglobin 0.1 Arterial Blood Methemoglobin 0.4 Blood Gas A-a O2 Differential 46.4 H Oxyhemoglobin Percent 95.5 Total Hemoglobin 11.4 L Blood Gas Temperature 37.0 Blood Gas Modality NASAL CANNULA FiO2 27.0 Blood Gas Notified Whom JLD Blood Gas Notified Time 01/13/2017 2:41:24 PM Bedside Glucose 94 Test 01/13/17 22:54 01/14/17 07:49 01/14/17 08:00 Creatine Kinase 98 Creatine Kinase Index 3.3 Creatinine Kinase MB (Mass) 3.19 H Troponin I 0.038 Bedside Glucose 206 White Blood Count 14.6 #H Red Blood Count 3.37 L Hemoglobin 9.8 L Hematocrit 31.1 L Mean Corpuscular Volume 92.3 Mean Corpuscular Hemoglobin 29.1 Mean Corpuscular Hemoglobin Concent 31.5 L Red Cell Distribution Width 16.0 H Platelet Count 630 H Mean Platelet Volume 9.2 Neutrophils % 84.5 H Lymphocytes % 7.9 L Monocytes % 6.3 Eosinophils % 0.3 Basophils % 0.4 Nucleated Red Blood Cells % 0.0 Neutrophils # 12.4 H Lymphocytes # 1.2 Monocytes # 0.9 Eosinophils # 0.0 Basophils # 0.1 Nucleated Red Blood Cells # 0.0 Prothrombin Time 13.2 Prothrombin Time Ratio 1.0 INR International Normalized Ratio 1.00 Activated Partial Thromboplast Time 28.1 Sodium Level 139 Potassium Level 4.1 Chloride Level 105 # Carbon Dioxide Level 33 H Anion Gap 5 #L Blood Urea Nitrogen 4 L Creatinine 0.41 L Glucose Level 171 Calcium Level 8.1 L Magnesium Level 1.2 L Medications Medications Current Medications Aspirin (Aspirin) 81 mg DAILY PO ; Start 01/14/17 at 09:00 Atorvastatin Calcium (Lipitor) 40 mg HS PO Last administered on 01/13/17 21:19 ; Admin Dose 40 MG; Start 01/13/17 at 21:00 Metoprolol Tartrate (Lopressor) 25 mg BID PO Last administered on 01/13/17 21: 20; Admin Dose 25 MG; Start 01/13/17 at 21:00 Amiodarone HCl (Cordarone) 200 mg BID PO Last administered on 01/13/17 21:20; Admin Dose 200 MG; Start 01/13/17 at 21:00 Docusate Sodium (Colace) 100 mg Q12H PO Last administered on 01/13/17 21:19; Admin Dose 100 MG; Start 01/13/17 at 19:30 Duloxetine HCl (Cymbalta) 20 mg DAILY PO ; Start 01/14/17 at 09:00 Enoxaparin Sodium (Lovenox) 40 mg DAILY SC ; Start 01/14/17 at 09:00 Insulin Detemir (Levemir) 25 unit DAILY@20 SC Last administered on 01/13/17 21: 24; Admin Dose 25 UNIT; Start 01/13/17 at 20:00 Lisinopril (Zestril) 2.5 mg DAILY NGT ; Start 01/14/17 at 09:00 Al Hydrox/Mg Hydrox/Simethicone (Mag-Al Plus) 30 ml Q4H PRN PO GASTROINTESTINAL UPSET; Start 01/13/17 at 19:30 Montelukast Sodium (Singulair) 10 mg HS NGT Last administered on 01/13/17 21:20 ; Admin Dose 10 MG; Start 01/13/17 at 21:00 Nitroglycerin (Nitroglycerin (Sl Tab) 0.4 Mg) 1 tab Q5M PRN SL CHEST PAIN; Start 01/13/17 at 19:30 Oxycodone/ Acetaminophen (Percocet (5/ 325)) 1 tab Q4 PRN PO SEVERE PAIN LEVEL 7-10; Start 01/13/17 at 19:30 Pregabalin (Lyrica) 100 mg BID PO Last administered on 01/13/17 21:19; Admin Dose 100 MG; Start 01/13/17 at 21:00 Morphine Sulfate (Ms Contin (Er)) 30 mg TID PO Last administered on 01/13/17 21 :22; Admin Dose 30 MG; Start 01/13/17 at 21:00 Diagnostic Test (Pha) 1 ea 1 ea 02 XX ; Start 01/14/17 at 02:00 Levofloxacin/ Dextrose (Levaquin 500mg/ D5W 100 ml (Pmx)) 100 ml @ 100 mls/hr Q24H IVPB Last administered on 01/13/17 21:16; Admin Dose 100 MLS/HR; Start 01/13/17 at 19:30 Miscellaneous Information 1 ea NOTE XX ; Start 01/13/17 at 20:00 Glucose (Glutose) 15 gm Q15M PRN PO DECREASED GLUCOSE; Start 01/13/17 at 20:00 Glucose (Glutose) 22.5 gm Q15M PRN PO DECREASED GLUCOSE; Start 01/13/17 at 20:00 Dextrose (D50w Syringe) 25 ml Q15M PRN IV DECREASED GLUCOSE; Start 01/13/17 at 20:00 Dextrose (D50w Syringe) 50 ml Q15M PRN IV DECREASED GLUCOSE; Start 01/13/17 at 20:00 Glucagon (Glucagen) 1 mg Q15M PRN IM DECREASED GLUCOSE; Start 01/13/17 at 20:00 Glucose 15 gm 15 gm Q15M PRN BUCCAL DECREASED GLUCOSE; Start 01/13/17 at 20:00 Vancomycin HCl 1.25 gm/Sodium Chloride 250 ml @ 83.333 mls/ hr Q12H IVPB ; Start 01/14/17 at 10:00 Dextrose/Sodium Chloride (D5-1/2ns) 1,000 ml @ 50 mls/hr Q20H IV Last administered on 01/13/17t 23:04; Admin Dose 50 MLS/HR; Start 01/13/17 at 23:00 Procedures Procedures PROCEDURE: Chest Radiograph. CLINICAL INDICATION: Shortness of breath TECHNIQUE: Single frontal chest radiograph. COMPARISON: Chest radiograph 01/13/2017. CT chest 01/13/2017. FINDINGS: The patient is status post sternotomy. Heart size is poorly evaluated. Atherosclerotic calcifications are present. There is persistent dense left retrocardiac opacification consistent with small pleural effusion and consolidation seen on recent cross-sectional imaging. The right lung remains clear. There is resorption of the distal right clavicle which is stable. The bones are otherwise intact. IMPRESSION: 1. Stable radiographic appearance of chest compared to 01/13/2017. RPTAT: KK .Kalin Choudhary MD, MD Date Time Electronically viewed and signed by .Kalin Choudhary MD, on 2016 08:43 .B/ CC: MICHAEL AUGUSTIN BOLATITO M. January 14, 2017 09:13
[2017-01-14] MEDS: ENOXAPARIN 40 MG/0.4 ML SYG SC SCH (09:33)
[2017-01-14] MEDS ORDERED: MAGNESIUM SULFATE 3 GM in SOD CHLORIDE 0.9% 100 ML IVPB ONE (09:45)
[2017-01-14] MEDS: ALBUTEROL 0.083% (NEB) 2.5 MG/3 ML AMP HHN SCH ×4 (10:29→20:14)
[2017-01-14] MEDS ORDERED: PENDING SANTYL ORDER FOR WOUND CARE XX PRN (11:00)
[2017-01-14 11:15] LABS: CK-MB 1.97 ng/ml (0.0-2.4)
[2017-01-14 11:18] LABS: TROPONIN-I 0.028 ng/ml (0.00-0.12)
[2017-01-14] MEDS: OXYCODONE/ACETAMINOPHEN (5/325) TAB PO PRN ×2 (12:36→19:46)
--- NOTE | 2017-01-14 14:40 | CONS ---
DATE OF ADMISSION: 01/13/2017 DATE OF CONSULTATION: REASON FOR CONSULTATION: Swelling left lower extremity. HISTORY OF PRESENT ILLNESS: The patient is known to me, a 66-year-old female status post coronary ar sammi bypass grafting a few weeks ago. The patient is now being admitted because of swelling of the left lower extremity. The patient is nonambulatory, currently lives in a longterm. She stated that left leg started to have more swelling over the course of the past week or so. There is no fev er. There were no chills at home. The patient was also admitted because of shortness of breath. C AT scan of the chest was done which showed a small left-sided pleural effusion and extensive left lo wer lobe consolidation. The patient is currently also being treated for possible pneumonia. PAST MEDICAL HISTORY: Hypertension, hyperlipidemia, coronary artery disease, diabetes, obesity, cherry otine dependency. PAST SURGICAL HISTORY: Coronary artery bypass grafting. ALLERGIES: NONE. SOCIAL HISTORY: No smoking, drinking or drug use. MEDICATIONS: List reviewed. PHYSICAL EXAMINATION: VITAL SIGNS: Blood pressure is 115/65, pulse is 78, respirations 18, temperature is 98.2, saturatio ns of 95% on 6 liters of oxygen. CARDIOVASCULAR EXAM: Regular rate and rhythm. Normal S1, S2. LUNGS: Clear. Diminished breath sounds on the left side. ABDOMEN: Soft, nontender, nondistended. EXTREMITIES: Warm. Left lower extremity is more swollen than the right. No signs of ischemia. IMPRESSION: 1. Status post coronary artery bypass grafting. 2. Left lung atelectasis, possible pneumonia. 3. Swelling of left lower extremity, possible cellulitis. RECOMMENDATIONS: Will continue elevation of the left leg, local wound care, aspirin and antibiotics . Discussed with the patient. Dictated By: RENETTA MILLS/NTS Conf#: [id number] DID#: [id number]
--- NOTE | 2017-01-14 16:42 | CONS ---
Date/Time of Note Date/Time of Note DATE: 01/14/17 TIME: 16:39 Assessment/Plan Assessment/Plan Additional Assessment/Plan Sepsis Shortness of breath, improved Cellulitis Multivessel coronary artery disease status post CABG Cardiomyopathy with ejection fraction 50% Paroxysmal atrial fibrillation Diabetes -CT chest with possible infiltrate versus atelectasis. Shortness of breath has improved. Lower extremity pain is better, CT scan with evidence of likely cellulitis. Continue aspirin, statin therapy, beta-zacarias as heart rate and blood pressure permits. Consultation Date/Type/Reason Admit Date/Time January 13, 2017 at 14:21 Initial Consult Date Type of Consultation: cv 24 HR Interval Summary Free Text/Dictation Denies shortness of breath, leg pain is better, denies chest pain Exam/Review of Systems Vital Signs Vitals Vital Signs Date Time Temp Pulse Resp B/P Pulse Ox O2 Delivery O2 Flow Rate FiO2 01/14/17 16:33 93 20 95 Nasal Cannula 4.0 01/14/17 15:06 98.2 115/65 Intake and Output 01/13/17 01/13/17 01/14/17 15:00 23:00 07:00 Intake Total 200 ml 960 ml Balance 200 ml 960 ml Exam Constitutional: alert, obese, oriented Neck: supple Respiratory: other (Coarse breath sounds bilaterally, no wheezing) Cardiovascular: other (S1-S2 heard), regular rate and rhythm Gastrointestinal: bowel sounds, non-tender, soft Extremities: edema Results Result Diagram: 01/14/17 0800 01/14/17 0800 Results 24 hrs Laboratory Tests Test 01/13/17 21:07 01/13/17 22:54 01/14/17 07:49 01/14/17 08:00 Bedside Glucose 94 206 Creatine Kinase 98 75 Creatine Kinase Index 3.3 2.6 Creatinine Kinase MB (Mass) 3.19 H 1.97 Troponin I 0.038 0.028 White Blood Count 14.6 #H Red Blood Count 3.37 L Hemoglobin 9.8 L Hematocrit 31.1 L Mean Corpuscular Volume 92.3 Mean Corpuscular Hemoglobin 29.1 Mean Corpuscular Hemoglobin Concent 31.5 L Red Cell Distribution Width 16.0 H Platelet Count 630 H Mean Platelet Volume 9.2 Neutrophils % 84.5 H Lymphocytes % 7.9 L Monocytes % 6.3 Eosinophils % 0.3 Basophils % 0.4 Nucleated Red Blood Cells % 0.0 Neutrophils # 12.4 H Lymphocytes # 1.2 Monocytes # 0.9 Eosinophils # 0.0 Basophils # 0.1 Nucleated Red Blood Cells # 0.0 Prothrombin Time 13.2 Prothrombin Time Ratio 1.0 INR International Normalized Ratio 1.00 Activated Partial Thromboplast Time 28.1 Sodium Level 139 Potassium Level 4.1 Chloride Level 105 # Carbon Dioxide Level 33 H Anion Gap 5 #L Blood Urea Nitrogen 4 L Creatinine 0.41 L Glucose Level 171 Calcium Level 8.1 L Magnesium Level 1.2 L Test 01/14/17 12:34 Bedside Glucose 200 Medications Medications Current Medications Aspirin (Aspirin) 81 mg DAILY PO Last administered on 01/14/17 09:00; Admin Dose 81 MG; Start 01/14/17 at 09:00 Atorvastatin Calcium (Lipitor) 40 mg HS PO Last administered on 01/13/17 21:19 ; Admin Dose 40 MG; Start 01/13/17 at 21:00 Metoprolol Tartrate (Lopressor) 25 mg BID PO Last administered on 01/14/17 09: 02; Admin Dose 25 MG; Start 01/13/17 at 21:00 Amiodarone HCl (Cordarone) 200 mg BID PO Last administered on 01/14/17 09:01; Admin Dose 200 MG; Start 01/13/17 at 21:00 Docusate Sodium (Colace) 100 mg Q12H PO Last administered on 01/13/17 21:19; Admin Dose 100 MG; Start 01/13/17 at 19:30 Duloxetine HCl (Cymbalta) 20 mg DAILY PO Last administered on 01/14/17 08:59; Admin Dose 20 MG; Start 01/14/17 at 09:00 Enoxaparin Sodium (Lovenox) 40 mg DAILY SC Last administered on 01/14/17 09:33 ; Admin Dose 40 MG; Start 01/14/17 at 09:00 Insulin Detemir (Levemir) 25 unit DAILY@20 SC Last administered on 01/13/17 21: 24; Admin Dose 25 UNIT; Start 01/13/17 at 20:00 Lisinopril (Zestril) 2.5 mg DAILY NGT Last administered on 01/14/17 09:01; Admin Dose 2.5 MG; Start 01/14/17 at 09:00 Al Hydrox/Mg Hydrox/Simethicone (Mag-Al Plus) 30 ml Q4H PRN PO GASTROINTESTINAL UPSET; Start 01/13/17 at 19:30 Montelukast Sodium (Singulair) 10 mg HS NGT Last administered on 01/13/17 21:20 ; Admin Dose 10 MG; Start 01/13/17 at 21:00 Nitroglycerin (Nitroglycerin (Sl Tab) 0.4 Mg) 1 tab Q5M PRN SL CHEST PAIN; Start 01/13/17 at 19:30 Oxycodone/ Acetaminophen (Percocet (5/ 325)) 1 tab Q4 PRN PO SEVERE PAIN LEVEL 7-10 Last administered on 01/14/17 12:36; Admin Dose 1 TAB; Start 01/13/17 at 19: 30 Pregabalin (Lyrica) 100 mg BID PO Last administered on 01/14/17 08:59; Admin Dose 100 MG; Start 01/13/17 at 21:00 Morphine Sulfate (Ms Contin (Er)) 30 mg TID PO Last administered on 01/14/17 09 :00; Admin Dose 30 MG; Start 01/13/17 at 21:00 Diagnostic Test (Pha) 1 ea 1 ea 02 XX ; Start 01/14/17 at 02:00 Levofloxacin/ Dextrose (Levaquin 500mg/ D5W 100 ml (Pmx)) 100 ml @ 100 mls/hr Q24H IVPB Last administered on 01/13/17 21:16; Admin Dose 100 MLS/HR; Start 01/13/17 at 19:30 Miscellaneous Information 1 ea NOTE XX ; Start 01/13/17 at 20:00 Glucose (Glutose) 15 gm Q15M PRN PO DECREASED GLUCOSE; Start 01/13/17 at 20:00 Glucose (Glutose) 22.5 gm Q15M PRN PO DECREASED GLUCOSE; Start 01/13/17 at 20:00 Dextrose (D50w Syringe) 25 ml Q15M PRN IV DECREASED GLUCOSE; Start 01/13/17 at 20:00 Dextrose (D50w Syringe) 50 ml Q15M PRN IV DECREASED GLUCOSE; Start 01/13/17 at 20:00 Glucagon (Glucagen) 1 mg Q15M PRN IM DECREASED GLUCOSE; Start 01/13/17 at 20:00 Glucose 15 gm 15 gm Q15M PRN BUCCAL DECREASED GLUCOSE; Start 01/13/17 at 20:00 Vancomycin HCl/ Sodium Chloride (Vancocin/NS) 250 ml @ 83.333 mls/ hr Q12H IVPB Last administered on 01/14/17t 09:02; Admin Dose 83.333 MLS/HR; Start at 10:00 Miscellaneous Information [facility] This patient panda... PRN PRN XX WOUND CARE; Start 01/14/17 at 11:00 Miscellaneous Information (*Rx Drug Level Order Reminder*) 1 ONCE ONCE XX ; Start 01/15/17 at 09:00; Stop 01/15/17 at 09:01 Pantoprazole (Protonix Tab) 40 mg DAILY@06 PO ; Start 01/15/17 at 06:00 Manuel Escudero DO January 14, 2017 16:42
[2017-01-14] MEDS: LEVOFLOXACIN 500MG/D5W (PMX) 100 ML IVPB SCH (19:46)
[2017-01-14] MEDS: INSULIN DETEMIR [LEVEMIR] 3ML CART SC SCH (19:56)
[2017-01-14] MEDS: ATORVASTATIN 40 MG TAB PO SCH (20:17)
[2017-01-14] MEDS: MONTELUKAST 10 MG TAB NGT SCH (20:17)
[2017-01-15] VITALS (12 sets, daily range): BP systolic 90–117; BP diastolic 52–72; PULSE 50–81; RESP 12–20
[2017-01-15] MEDS: ALBUTEROL 0.083% (NEB) 2.5 MG/3 ML AMP HHN SCH ×6 (00:54→20:31)
[2017-01-15] MEDS: ACCU-CHEK XX SCH (02:00)
[2017-01-15] MEDS: PANTOPRAZOLE (EC) 40 MG TAB PO SCH (05:11)
[2017-01-15] MEDS: DOCUSATE SODIUM 100 MG CAP PO SCH ×2 (05:11→21:58)
[2017-01-15] MEDS: OXYCODONE/ACETAMINOPHEN (5/325) TAB PO PRN ×2 (05:12→08:59)
[2017-01-15 06:50] LABS: ADD SCAN DIFF NO
[2017-01-15 07:01] LABS: ABNORMAL IP MESSAGE 1; BASOPHIL # 0.1 10^3/ul (0.0-0.1); BASOPHILS % 0.3 % (0.0-2.0); EOSINOPHILS # 0.1 10^3/ul (0.0-0.5); EOSINOPHILS % 0.3 % (0.0-7.0); HEMATOCRIT 31.8 % (37.0-47.0); HEMOGLOBIN 9.8 g/dl (12.0-16.0); LYMPHOCYTES # 2.4 10^3/ul (0.8-2.9); MEAN CORPUSCULAR HEMOGLOBIN 29.3 pg (29.0-33.0); MEAN CORPUSCULAR HGB CONC 30.8 g/dl (32.0-37.0); MEAN CORPUSCULAR VOLUME 95.2 fl (82.0-101.0); MEAN PLATELET VOLUME 9.2 fl (7.4-10.4); MONOCYTE # 2.1 10^3/ul (0.3-0.9); MONOCYTES % 7.9 % (0.0-11.0); NEUTROPHIL # 21.3 10^3/ul (1.6-7.5); NEUTROPHILS % 81.1 % (39.0-77.0); RED BLOOD COUNT 3.34 10^6/ul (4.20-5.40); RED CELL DISTRIBUTION WIDTH 15.9 % (11.5-14.5); WHITE BLOOD COUNT 26.3 10^3/ul (4.8-10.8)
[2017-01-15 07:38] LABS: PLATELET COUNT 604 10^3/UL (140-415)
[2017-01-15 08:00] LABS: CALCIUM 7.8 mg/dl (8.4-10.2); CREATININE 1.17 mg/dl (0.44-1.00)
[2017-01-15] MEDS: DULOXETINE 20 MG CAP DR PO SCH (08:58)
[2017-01-15] MEDS: METOPROLOL 25 MG TAB PO SCH ×2 (08:59→21:00)
[2017-01-15] MEDS: AMIODARONE 200 MG TAB PO SCH ×2 (09:00→21:00)
[2017-01-15] MEDS: LISINOPRIL 5 MG TAB NGT SCH (09:00)
[2017-01-15] MEDS: ASPIRIN 81 MG TAB PO SCH (09:00)
[2017-01-15] MEDS: PREGABALIN 25 MG CAP PO SCH ×2 (09:04→22:14)
[2017-01-15] MEDS: morphine (ER) 30 MG TAB PO SCH ×3 (09:04→21:59)
[2017-01-15] MEDS: INSULIN ASPART [NOVOLOG] 3 ML PEN SC SCH ×6 (09:06→22:03)
[2017-01-15] MEDS: ENOXAPARIN 40 MG/0.4 ML SYG SC SCH (09:14)
--- NOTE | 2017-01-15 11:02 | PN ---
Date/Time of Note Date/Time of Note DATE: 01/15/17 TIME: 10:58 Assessment/Plan VTE Prophylaxis VTE Prophylaxis Intervention: LMWH Lines/Catheters IV Catheter Type (from Nrsg): Saline Lock Urinary Cath still in place: No Assessment/Plan Assessment/Plan 66 yo F who presented with SOB managed for 1. Chest pain likely 2/2 #2 : improved 2. L sided Persistent pneumonia 3. L calf wound Staph aureus infection and cellulitis now with Sepsis 4. Coronary artery disease s/p CABG 12/07/2016 5. Hypertension : controlled 6. Dyslipidemia 7. Diabetes mellitus with diabetic neuropathy 8. Chronic depression: stable 9. Obesity / ?PCOS 10. Nicotine dependency 11. Hypomagnesemia PLAN: * ID consult for abx mgt / resume IVF slowly for 2L only ( held for resp insufficiency) / change cefepime to zosyn * Bronchodilator therapy / cont abx for cellulitis and pneumonia * Calorie controlled diet * Replace lytes * Further interventions per clinical course * pain control/ antiemetics/ antipyretics/ supportive care PROPHYLAXIS: PPI / lovenox Prognosis: Patient is high risk for decompensation / monitor closely. Subjective 24 Hr Interval Summary Free Text/Dictation less resp distress asking for PT to eval Exam/Review of Systems Vital Signs Vitals Vital Signs Date Time Temp Pulse Resp B/P Pulse Ox O2 Delivery O2 Flow Rate FiO2 01/15/17 08:52 79 01/15/17 08:06 22 94 Nasal Cannula 4.0 01/15/17 06:49 98.3 117/63 01/14/17 20:14 28 Intake and Output 01/14/17 01/14/17 01/15/17 15:00 23:00 07:00 Intake Total 1070 ml 550 ml Output Total 400 ml 400 ml Balance 670 ml 150 ml Exam Constitutional: alert, less distress, obese, oriented, other (male distribution of facial hair) Psych: No anxiety Eyes: PERRL, No icteric ENMT: mucosa pink and moist Neck: non-tender, supple, No bruits, No jvd Respiratory: diminished breath sounds, No crackles/rales, No wheezing Cardiovascular: No murmurs/extra sounds, regular rate and rhythm Extremities: edema (on L LE with old surgical scar with yellowish mild drainage, less erythema, however with induration extending superiorly to mid thigh) Results Result Diagram: 01/15/17 0600 01/15/17 0615 Results 24 hrs Laboratory Tests Test 01/14/17 12:34 01/14/17 17:51 01/14/17 19:52 01/15/17 06:00 Bedside Glucose 200 222 H 291 H White Blood Count 26.3 #H Red Blood Count 3.34 L Hemoglobin 9.8 L Hematocrit 31.8 L Mean Corpuscular Volume 95.2 Mean Corpuscular Hemoglobin 29.3 Mean Corpuscular Hemoglobin Concent 30.8 L Red Cell Distribution Width 15.9 H Platelet Count 604 H Mean Platelet Volume 9.2 Neutrophils % 81.1 H Lymphocytes % 9.0 L Monocytes % 7.9 Eosinophils % 0.3 Basophils % 0.3 Nucleated Red Blood Cells % 0.0 Neutrophils # 21.3 H Lymphocytes # 2.4 Monocytes # 2.1 H Eosinophils # 0.1 Basophils # 0.1 Nucleated Red Blood Cells # 0.0 Test 01/15/17 06:15 01/15/17 07:53 01/15/17 08:55 01/15/17 08:57 Sodium Level 132 L Potassium Level 4.0 Chloride Level 97 Carbon Dioxide Level 28 Anion Gap 11 Blood Urea Nitrogen 18 # Creatinine 1.17 H Glucose Level 208 Calcium Level 7.8 L Bedside Glucose 204 190 Vancomycin Level Trough 18.2 Medications Medications Current Medications Aspirin (Aspirin) 81 mg DAILY PO Last administered on 01/15/17 09:00; Admin Dose 81 MG; Start 01/14/17 at 09:00 Atorvastatin Calcium (Lipitor) 40 mg HS PO Last administered on 01/14/17 20:17 ; Admin Dose 40 MG; Start 01/13/17 at 21:00 Metoprolol Tartrate (Lopressor) 25 mg BID PO Last administered on 01/15/17 08: 59; Admin Dose 25 MG; Start 01/13/17 at 21:00 Amiodarone HCl (Cordarone) 200 mg BID PO Last administered on 01/15/17 09:00; Admin Dose 200 MG; Start 01/13/17 at 21:00 Docusate Sodium (Colace) 100 mg Q12H PO Last administered on 01/15/17 05:11; Admin Dose 100 MG; Start 01/13/17 at 19:30 Duloxetine HCl (Cymbalta) 20 mg DAILY PO Last administered on 01/15/17 08:58; Admin Dose 20 MG; Start 01/14/17 at 09:00 Enoxaparin Sodium (Lovenox) 40 mg DAILY SC Last administered on 01/15/17 09:14 ; Admin Dose 40 MG; Start 01/14/17 at 09:00 Insulin Detemir (Levemir) 25 unit DAILY@20 SC Last administered on 01/14/17 19: 56; Admin Dose 25 UNIT; Start 01/13/17 at 20:00 Lisinopril (Zestril) 2.5 mg DAILY NGT Last administered on 01/15/17 09:00; Admin Dose 2.5 MG; Start 01/14/17 at 09:00 Al Hydrox/Mg Hydrox/Simethicone (Mag-Al Plus) 30 ml Q4H PRN PO GASTROINTESTINAL UPSET; Start 01/13/17 at 19:30 Montelukast Sodium (Singulair) 10 mg HS NGT Last administered on 01/14/17 20:17 ; Admin Dose 10 MG; Start 01/13/17 at 21:00 Nitroglycerin (Nitroglycerin (Sl Tab) 0.4 Mg) 1 tab Q5M PRN SL CHEST PAIN; Start 01/13/17 at 19:30 Oxycodone/ Acetaminophen (Percocet (5/ 325)) 1 tab Q4 PRN PO SEVERE PAIN LEVEL 7-10 Last administered on 01/15/17 08:59; Admin Dose 1 TAB; Start 01/13/17 at 19: 30 Pregabalin (Lyrica) 100 mg BID PO Last administered on 01/15/17 09:04; Admin Dose 100 MG; Start 01/13/17 at 21:00 Morphine Sulfate (Ms Contin (Er)) 30 mg TID PO Last administered on 01/15/17 09 :04; Admin Dose 30 MG; Start 01/13/17 at 21:00 Diagnostic Test (Pha) 1 ea 1 ea 02 XX ; Start 01/14/17 at 02:00 Levofloxacin/ Dextrose (Levaquin 500mg/ D5W 100 ml (Pmx)) 100 ml @ 100 mls/hr Q24H IVPB Last administered on 01/14/17 19:46; Admin Dose 100 MLS/HR; Start 01/13/17 at 19:30 Miscellaneous Information 1 ea NOTE XX ; Start 01/13/17 at 20:00 Glucose (Glutose) 15 gm Q15M PRN PO DECREASED GLUCOSE; Start 01/13/17 at 20:00 Glucose (Glutose) 22.5 gm Q15M PRN PO DECREASED GLUCOSE; Start 01/13/17 at 20:00 Dextrose (D50w Syringe) 25 ml Q15M PRN IV DECREASED GLUCOSE; Start 01/13/17 at 20:00 Dextrose (D50w Syringe) 50 ml Q15M PRN IV DECREASED GLUCOSE; Start 01/13/17 at 20:00 Glucagon (Glucagen) 1 mg Q15M PRN IM DECREASED GLUCOSE; Start 01/13/17 at 20:00 Glucose (Glutose) 15 gm Q15M PRN BUCCAL DECREASED GLUCOSE; Start 01/13/17 at 20: 00 Miscellaneous Information [facility] This patient panda... PRN PRN XX WOUND CARE; Start 01/14/17 at 11:00 Pantoprazole (Protonix Tab) 40 mg DAILY@06 PO Last administered on 01/15/17t 05: 11; Admin Dose 40 MG; Start 01/15/17 at 06:00 Procedures Procedures PROCEDURE: CT, Extremity. CLINICAL INDICATION: Induration and drainage from incision status post CABG. TECHNIQUE: Multiple contiguous axial CT images of the left lower extremity were obtained without the administration of intravenous contrast. Coronal and sagittal reconstructions were subsequently obtained. CTDIvol: 18.44 mGy and Total Exam DLP: 784.75 mGy-cm. One or more of the following dose reduction techniques were utilized: - Automated exposure control. - Adjustment of the mA and/or kV according to patient size. - Use of iterative reconstruction technique. COMPARISON: None. FINDINGS: Multiple small surgical clips are seen within the deep subcutaneous soft tissues medial to the femoral condyle. Extensive subcutaneous edema is seen throughout the left lower extremity above and below the level of the knee. There is a very small accumulation of fluid measuring approximately 1.0 cm beneath the incision. A tiny pocket of air is observed. There is no evidence of large organized fluid collection. The visualized intramuscular compartments are unremarkable. Vascular calcifications are present. Mild knee joint space narrowing is observed. Marginal osteophytes are present. A thick curvilinear calcification adjacent to the medial femoral condyle is observed and may reflect prior ligamentous injury. IMPRESSION: Extensive superficial and deep subcutaneous edema throughout the visualized portion of the left lower extremity without evidence of large organized fluid collection. There is a very small accumulation of fluid measuring approximately 1.0 cm in greatest dimension immediately beneath the skin incision. Osteoarthritis of the knee. Atherosclerosis. RPTAT: HLST .Yeni Burgos MD, MD Date Time Electronically viewed and signed by .Yeni Burgos MD, MD on 01/13/2017 19:05 .T/ CC: Manuel Escudero BOLATITO M. January 15, 2017 11:02
--- NOTE | 2017-01-15 12:01 | CONS ---
Date/Time of Note Date/Time of Note DATE: 01/15/17 TIME: 11:58 Assessment/Plan Assessment/Plan Additional Assessment/Plan Sepsis Shortness of breath, improved Cellulitis Multivessel coronary artery disease status post CABG Cardiomyopathy with ejection fraction 50% Paroxysmal atrial fibrillation Diabetes -Patient with worsening leukocytosis and rising creatinine. Blood pressure on the lower end, would hold lisinopril, holding parameters on antihypertensives. Consider infectious disease evaluation. Consultation Date/Type/Reason Admit Date/Time January 13, 2017 at 14:21 Type of Consultation: cv 24 HR Interval Summary Free Text/Dictation Patient denies shortness of breath, chest pain, leg pain has improved Exam/Review of Systems Vital Signs Vitals Vital Signs Date Time Temp Pulse Resp B/P Pulse Ox O2 Delivery O2 Flow Rate FiO2 01/15/17 11:13 99.3 82 12 97/72 90 01/15/17 08:06 Nasal Cannula 4.0 01/14/17 20:14 28 Intake and Output 01/14/17 01/14/17 01/15/17 15:00 23:00 07:00 Intake Total 1070 ml 550 ml Output Total 400 ml 400 ml Balance 670 ml 150 ml Exam No apparent distress Constitutional: alert, obese, oriented Head: normocephalic Respiratory: other (Coarse breath sounds bilaterally, no wheezing) Cardiovascular: other (S1-S2 heard), regular rate and rhythm Gastrointestinal: bowel sounds, non-tender, soft Extremities: edema, other (Induration left upper thigh) Results Result Diagram: 01/15/17 0600 01/15/17 0615 Results 24 hrs Laboratory Tests Test 01/14/17 12:34 01/14/17 17:51 01/14/17 19:52 01/15/17 06:00 Bedside Glucose 200 222 H 291 H White Blood Count 26.3 #H Red Blood Count 3.34 L Hemoglobin 9.8 L Hematocrit 31.8 L Mean Corpuscular Volume 95.2 Mean Corpuscular Hemoglobin 29.3 Mean Corpuscular Hemoglobin Concent 30.8 L Red Cell Distribution Width 15.9 H Platelet Count 604 H Mean Platelet Volume 9.2 Neutrophils % 81.1 H Lymphocytes % 9.0 L Monocytes % 7.9 Eosinophils % 0.3 Basophils % 0.3 Nucleated Red Blood Cells % 0.0 Neutrophils # 21.3 H Lymphocytes # 2.4 Monocytes # 2.1 H Eosinophils # 0.1 Basophils # 0.1 Nucleated Red Blood Cells # 0.0 Test 01/15/17 06:15 01/15/17 07:53 01/15/17 08:55 01/15/17 08:57 Sodium Level 132 L Potassium Level 4.0 Chloride Level 97 Carbon Dioxide Level 28 Anion Gap 11 Blood Urea Nitrogen 18 # Creatinine 1.17 H Glucose Level 208 Calcium Level 7.8 L Bedside Glucose 204 190 Vancomycin Level Trough 18.2 Medications Medications Current Medications Aspirin (Aspirin) 81 mg DAILY PO Last administered on 01/15/17 09:00; Admin Dose 81 MG; Start 01/14/17 at 09:00 Atorvastatin Calcium (Lipitor) 40 mg HS PO Last administered on 01/14/17 20:17 ; Admin Dose 40 MG; Start 01/13/17 at 21:00 Metoprolol Tartrate (Lopressor) 25 mg BID PO Last administered on 01/15/17 08: 59; Admin Dose 25 MG; Start 01/13/17 at 21:00 Amiodarone HCl (Cordarone) 200 mg BID PO Last administered on 01/15/17 09:00; Admin Dose 200 MG; Start 01/13/17 at 21:00 Docusate Sodium (Colace) 100 mg Q12H PO Last administered on 01/15/17 05:11; Admin Dose 100 MG; Start 01/13/17 at 19:30 Duloxetine HCl (Cymbalta) 20 mg DAILY PO Last administered on 01/15/17 08:58; Admin Dose 20 MG; Start 01/14/17 at 09:00 Enoxaparin Sodium (Lovenox) 40 mg DAILY SC Last administered on 01/15/17 09:14 ; Admin Dose 40 MG; Start 01/14/17 at 09:00 Lisinopril (Zestril) 2.5 mg DAILY NGT Last administered on 01/15/17 09:00; Admin Dose 2.5 MG; Start 01/14/17 at 09:00 Al Hydrox/Mg Hydrox/Simethicone (Mag-Al Plus) 30 ml Q4H PRN PO GASTROINTESTINAL UPSET; Start 01/13/17 at 19:30 Montelukast Sodium (Singulair) 10 mg HS NGT Last administered on 01/14/17 20:17 ; Admin Dose 10 MG; Start 01/13/17 at 21:00 Nitroglycerin (Nitroglycerin (Sl Tab) 0.4 Mg) 1 tab Q5M PRN SL CHEST PAIN; Start 01/13/17 at 19:30 Oxycodone/ Acetaminophen (Percocet (5/ 325)) 1 tab Q4 PRN PO SEVERE PAIN LEVEL 7-10 Last administered on 01/15/17 08:59; Admin Dose 1 TAB; Start 01/13/17 at 19: 30 Pregabalin (Lyrica) 100 mg BID PO Last administered on 01/15/17 09:04; Admin Dose 100 MG; Start 01/13/17 at 21:00 Morphine Sulfate (Ms Contin (Er)) 30 mg TID PO Last administered on 01/15/17 09 :04; Admin Dose 30 MG; Start 01/13/17 at 21:00 Diagnostic Test (Pha) (Accu-Chek) 1 ea 02 XX ; Start 01/14/17 at 02:00 Miscellaneous Information 1 ea NOTE XX ; Start 01/13/17 at 20:00 Glucose (Glutose) 15 gm Q15M PRN PO DECREASED GLUCOSE; Start 01/13/17 at 20:00 Glucose (Glutose) 22.5 gm Q15M PRN PO DECREASED GLUCOSE; Start 01/13/17 at 20:00 Dextrose (D50w Syringe) 25 ml Q15M PRN IV DECREASED GLUCOSE; Start 01/13/17 at 20:00 Dextrose (D50w Syringe) 50 ml Q15M PRN IV DECREASED GLUCOSE; Start 01/13/17 at 20:00 Glucagon (Glucagen) 1 mg Q15M PRN IM DECREASED GLUCOSE; Start 01/13/17 at 20:00 Glucose (Glutose) 15 gm Q15M PRN BUCCAL DECREASED GLUCOSE; Start 01/13/17 at 20: 00 Miscellaneous Information (Pending [facility] Order For Wound Care) This patient panda... PRN PRN XX WOUND CARE; Start 01/14/17 at 11:00 Pantoprazole (Protonix Tab) 40 mg DAILY@06 PO Last administered on 01/15/17 05: 11; Admin Dose 40 MG; Start 01/15/17 at 06:00 Insulin Detemir 28 unit 28 unit DAILY@20 SC ; Start 01/15/17 at 20:00 Levofloxacin/ Dextrose 50 ml @ 50 mls/hr Q24H IVPB ; Start 01/15/17 at 20:00 Vancomycin HCl/ Sodium Chloride (Vancocin/NS) 250 ml @ 83.333 mls/ hr Q24H IVPB ; Start 01/15/17 at 14:00 Manuel Escudero DO January 15, 2017 12:01
--- NOTE | 2017-01-15 12:52 | CONS ---
DATE OF ADMISSION: 01/13/2017 DATE OF CONSULTATION: 01/15/2017 TYPE OF CONSULTATION: Infectious Disease. REASON FOR CONSULTATION: Antibiotic management. HISTORY OF PRESENT ILLNESS: Elsa Saavedra is a pleasant 66-year-old female with a number of problem s who was admitted with shortness of breath and is being seen for antibiotic management. Her past p roblems include: 1. Coronary artery disease. 2. Hypertension. 3. Dyslipidemia. 4. Diabetes mellitus. 5. Diabetic neuropathy. 6. Major depression. 7. Chronic pain syndrome. 8. Insomnia. 9. Obesity. 10. Nicotine dependency. She comes in complaining of chest pain associated with shortness of breath. She has no fever. She has a chronic cough that is occasionally productive of sputum. She had a saphenous vein graft for h er CABG and at the surgical site, she has been having oozing and redness suggestive of cellulitis an d infection according to Dr. Mendoza and according to the patient. She is being admitted for both for r easons. PAST MEDICAL HISTORY: Include also: Past surgery, she had a right hip surgery, right foot surgery, breast surgery, cataract surgery and cholecystectomy as well as coronary bypass surgery. FAMILY HISTORY: Noncontributory. SOCIAL HISTORY: She is a former smoker. She does not drink or abuse drugs. ALLERGIES: NONE TO PENICILLIN, SULFA OR FOODS. MEDICATIONS: Per chart. REVIEW OF SYSTEMS: Noncontributory. HOSPITAL COURSE: The patient was seen by Dr. Larose. He noted swelling in the left lower extrem ity, left lung atelectasis with possible pneumonia and possible cellulitis. The patient had Staph a ureus growing from the left leg on 01/14/2017, and blood cultures which were negative. A lower extr emity CT scan showed extensive superficial and deep subcutaneous edema throughout the visualized por tion of the left lower extremity without evidence of a large organized fluid collection. There is a very small accumulation of fluid measuring approximately 1 cm in greatest dimension immediately chaya eath the skin incision. Osteoarthritis of the knee and atherosclerosis. A venous study showed no d eep vein thrombophlebitis. A CT scan of the chest showed smaller pleural effusion, extensive left l ower lobe consolidation with air bronchograms, possibly representing pneumonia and/or atelectasis. Mild right lower lobe atelectasis, cardiomegaly, status post coronary artery bypass graft and cholec ystectomy. A chest x-ray showed left retrocardiac opacification which may be related to effusion, a telectasis or infiltrate. On 01/14/2017, she had persistent dense left retrocardiac opacification c onsistent with small pleural effusion and consolidation. The patient was placed on Levaquin and van comycin. Her white count today, however, is 26.3, H and H of 9.8 and 31.8, platelet count of 604,00 0. Her BUN and creatinine are 18/1.17. Vancomycin trough is 18.2 PHYSICAL EXAMINATION: GENERAL: The patient is a well-developed, well-nourished female who is alert, responsive, in no acu te distress. VITAL SIGNS: Stable. She is afebrile. SKIN: Without generalized rash. HEENT: Within normal limits. NECK: Supple. LYMPH NODES: None palpable. CHEST: Decreased breath sounds at the bases bilaterally. HEART: Without murmur or gallop. ABDOMEN: Soft, nontender, without organosplenomegaly or masses. EXTREMITIES: Without cyanosis, clubbing. The left lower extremity has opening of the surgical inci donna on the medial side with warmth and erythema as well as induration. IMPRESSION AND PLAN: The patient is currently on vancomycin and Levaquin; however, her white count has now risen to 26.3 from 14.6. I am going to place her on cefepime 1 gram q.12 and stop her Leva kenny. I will dictate my findings to the hospitalist. Dictated By: IRMA GARCIA MD, JD/HOSEA Conf#: [id number] DID#: [id number]
[2017-01-15] MEDS ORDERED: VANCOMYCIN 1.5 GM in SOD CHLORIDE 0.9% 250 ML IVPB SCH (14:00)
[2017-01-15] MEDS: SOD CHLORIDE 0.9% 1,000 ML IV SCH (14:25)
[2017-01-15] MEDS: PIPER-TAZO 3.375 GM IV (PMX) 100 ML IVPB SCH ×2 (14:26→22:14)
[2017-01-15] MEDS ORDERED: LEVOFLOXACIN 250MG/D5W (PMX) 50 ML IVPB SCH (20:00)
[2017-01-15] MEDS ORDERED: CEFEPIME 1GM/50 ML (PMX) 50 ML IVPB SCH (21:00)
[2017-01-15] MEDS: ATORVASTATIN 40 MG TAB PO SCH (21:59)
[2017-01-15] MEDS: MONTELUKAST 10 MG TAB NGT SCH (22:00)
[2017-01-15] MEDS: INSULIN DETEMIR [LEVEMIR] 3ML CART SC SCH (22:05)
[2017-01-16] VITALS (15 sets, daily range): BP systolic 68–121; BP diastolic 35–64; PULSE 63–80; RESP 18–19
[2017-01-16] MEDS: ALBUTEROL 0.083% (NEB) 2.5 MG/3 ML AMP HHN SCH ×6 (00:29→20:07)
[2017-01-16] MEDS: SOD CHLORIDE 0.9% 1,000 ML IV SCH ×3 (01:03→18:29)
[2017-01-16] MEDS: ACCU-CHEK XX SCH (02:00)
[2017-01-16] MEDS ORDERED: SOD CHLORIDE 0.9% 500 ML IV ONE (03:30)
[2017-01-16] MEDS: PANTOPRAZOLE (EC) 40 MG TAB PO SCH (05:10)
[2017-01-16] MEDS: PIPER-TAZO 3.375 GM IV (PMX) 100 ML IVPB SCH (05:11)
[2017-01-16 06:51] LABS: ADD SCAN DIFF NO
[2017-01-16 06:56] LABS: ABNORMAL IP MESSAGE 1; HEMATOCRIT 30.8 % (37.0-47.0); HEMOGLOBIN 9.3 g/dl (12.0-16.0); MEAN CORPUSCULAR HEMOGLOBIN 28.5 pg (29.0-33.0); MEAN CORPUSCULAR HGB CONC 30.2 g/dl (32.0-37.0); MEAN CORPUSCULAR VOLUME 94.5 fl (82.0-101.0); MEAN PLATELET VOLUME 9.5 fl (7.4-10.4); PLATELET COUNT 488 10^3/UL (140-415); RED BLOOD COUNT 3.26 10^6/ul (4.20-5.40); RED CELL DISTRIBUTION WIDTH 15.8 % (11.5-14.5); WHITE BLOOD COUNT 23.2 10^3/ul (4.8-10.8)
[2017-01-16 07:17] LABS: CALCIUM 7.7 mg/dl (8.4-10.2); CREATININE 2.29 mg/dl (0.44-1.00); POTASSIUM 5.1 mmol/L (3.5-5.1)
[2017-01-16] MEDS: DOCUSATE SODIUM 100 MG CAP PO SCH ×2 (07:30→21:48)
[2017-01-16] MEDS: INSULIN ASPART [NOVOLOG] 3 ML PEN SC SCH ×7 (07:48→21:00)
--- NOTE | 2017-01-16 08:57 | PN ---
Date/Time of Note Date/Time of Note DATE: 01/16/17 TIME: 08:49 Assessment/Plan VTE Prophylaxis VTE Prophylaxis Intervention: LMWH Lines/Catheters IV Catheter Type (from Nrs): Saline Lock Urinary Cath still in place: No Assessment/Plan Assessment/Plan 66 yo F who presented with SOB managed for 1. Chest pain likely 2/2 #2 : improved 2. L sided Persistent pneumonia 3. L calf wound MRSA infection and cellulitis now with Sepsis 4. Coronary artery disease s/p CABG 12/07/2016 5. Hypertension : controlled 6. Dyslipidemia 7. Diabetes mellitus with diabetic neuropathy 8. Chronic depression: stable 9. Obesity / ?PCOS 10. Nicotine dependency 11. Hypomagnesemia 12. New onset renal failure: ?ATN from sepsis PLAN: * still borderline hypotensive from sepsis * renal function worsening. Nephro d/jojo Vanc. will start Linezolid * continue gentle hydration with consideration for resp status / will give albumin / renal USS / Nephro consult * Bronchodilator therapy / cont abx for cellulitis and pneumonia * Calorie controlled diet * Replace lytes * Further interventions per clinical course * pain control/ antiemetics/ antipyretics/ supportive care PROPHYLAXIS: PPI / lovenox Prognosis: Patient is high risk for decompensation / monitor closely. Subjective 24 Hr Interval Summary Free Text/Dictation nursing notes poor urine output Patient just feels tired Exam/Review of Systems Vital Signs Vitals Vital Signs Date Time Temp Pulse Resp B/P Pulse Ox O2 Delivery O2 Flow Rate FiO2 01/16/17 08:12 66 01/16/17 07:26 82/40 01/16/17 07:07 98.2 19 98 01/16/17 05:37 Nasal Cannula 4.0 01/14/17 20:14 28 Intake and Output 01/15/17 01/15/17 01/16/17 14:59 22:59 06:59 Intake Total 1200 ml 300 ml Output Total 300 ml 250 ml Balance 900 ml 50 ml Exam Constitutional: alert, less distress, obese, oriented, other (male distribution of facial hair) Psych: No anxiety Eyes: PERRL, No icteric ENMT: mucosa pink and moist Neck: non-tender, supple, No bruits, No jvd Respiratory: diminished breath sounds, No crackles/rales, No wheezing Cardiovascular: No murmurs/extra sounds, regular rate and rhythm Extremities: edema (on L LE with old surgical scar with yellowish mild drainage, less erythema, however with induration extending superiorly to mid thigh) Results Result Diagram: 01/16/17 0555 01/16/17 0555 Results 24 hrs Laboratory Tests Test 01/15/17 08:55 01/15/17 08:57 01/15/17 12:16 01/15/17 15:48 Vancomycin Level Trough 18.2 Bedside Glucose 190 181 205 Test 01/15/17 17:52 01/15/17 20:47 01/16/17 01:51 01/16/17 05:55 Bedside Glucose 212 228 H 220 White Blood Count 23.2 H Red Blood Count 3.26 L Hemoglobin 9.3 L Hematocrit 30.8 L Mean Corpuscular Volume 94.5 Mean Corpuscular Hemoglobin 28.5 L Mean Corpuscular Hemoglobin Concent 30.2 L Red Cell Distribution Width 15.8 H Platelet Count 488 H Mean Platelet Volume 9.5 Sodium Level 131 L Potassium Level 5.1 Chloride Level 96 L Carbon Dioxide Level 30 Anion Gap 10 Blood Urea Nitrogen 30 #H Creatinine 2.29 #H Glucose Level 152 Calcium Level 7.7 L Test 01/16/17 07:33 Bedside Glucose 159 Medications Medications Current Medications Aspirin (Aspirin) 81 mg DAILY PO Last administered on 01/15/17 09:00; Admin Dose 81 MG; Start 01/14/17 at 09:00 Atorvastatin Calcium (Lipitor) 40 mg HS PO Last administered on 01/15/17 21:59 ; Admin Dose 40 MG; Start 01/13/17 at 21:00 Metoprolol Tartrate (Lopressor) 25 mg BID PO Last administered on 01/15/17 08: 59; Admin Dose 25 MG; Start 01/13/17 at 21:00 Amiodarone HCl (Cordarone) 200 mg BID PO Last administered on 01/15/17 09:00; Admin Dose 200 MG; Start 01/13/17 at 21:00 Docusate Sodium (Colace) 100 mg Q12H PO Last administered on 01/15/17 21:58; Admin Dose 100 MG; Start 01/13/17 at 19:30 Duloxetine HCl (Cymbalta) 20 mg DAILY PO Last administered on 01/15/17 08:58; Admin Dose 20 MG; Start 01/14/17 at 09:00 Enoxaparin Sodium (Lovenox) 40 mg DAILY SC Last administered on 01/15/17 09:14 ; Admin Dose 40 MG; Start 01/14/17 at 09:00 Lisinopril (Zestril) 2.5 mg DAILY NGT Last administered on 01/15/17 09:00; Admin Dose 2.5 MG; Start 01/14/17 at 09:00 Al Hydrox/Mg Hydrox/Simethicone (Mag-Al Plus) 30 ml Q4H PRN PO GASTROINTESTINAL UPSET; Start 01/13/17 at 19:30 Montelukast Sodium (Singulair) 10 mg HS NGT Last administered on 01/15/17 22:00 ; Admin Dose 10 MG; Start 01/13/17 at 21:00 Nitroglycerin (Nitroglycerin (Sl Tab) 0.4 Mg) 1 tab Q5M PRN SL CHEST PAIN; Start 01/13/17 at 19:30 Oxycodone/ Acetaminophen (Percocet (5/ 325)) 1 tab Q4 PRN PO SEVERE PAIN LEVEL 7-10 Last administered on 01/15/17 08:59; Admin Dose 1 TAB; Start 01/13/17 at 19: 30 Pregabalin (Lyrica) 100 mg BID PO Last administered on 01/15/17 22:14; Admin Dose 100 MG; Start 01/13/17 at 21:00 Morphine Sulfate (Ms Contin (Er)) 30 mg TID PO Last administered on 01/15/17 21 :59; Admin Dose 30 MG; Start 01/13/17 at 21:00 Diagnostic Test (Pha) (Accu-Chek) 1 ea 02 XX ; Start 01/14/17 at 02:00 Miscellaneous Information 1 ea NOTE XX ; Start 01/13/17 at 20:00 Glucose (Glutose) 15 gm Q15M PRN PO DECREASED GLUCOSE; Start 01/13/17 at 20:00 Glucose (Glutose) 22.5 gm Q15M PRN PO DECREASED GLUCOSE; Start 01/13/17 at 20:00 Dextrose (D50w Syringe) 25 ml Q15M PRN IV DECREASED GLUCOSE; Start 01/13/17 at 20:00 Dextrose (D50w Syringe) 50 ml Q15M PRN IV DECREASED GLUCOSE; Start 01/13/17 at 20:00 Glucagon (Glucagen) 1 mg Q15M PRN IM DECREASED GLUCOSE; Start 01/13/17 at 20:00 Glucose (Glutose) 15 gm Q15M PRN BUCCAL DECREASED GLUCOSE; Start 01/13/17 at 20: 00 Miscellaneous Information (Pending Santyl Order For Wound Care) This patient panda... PRN PRN XX WOUND CARE; Start 01/14/17 at 11:00 Pantoprazole (Protonix Tab) 40 mg DAILY@06 PO Last administered on 01/16/17 05: 10; Admin Dose 40 MG; Start 01/15/17 at 06:00 Insulin Detemir 28 unit 28 unit DAILY@20 SC Last administered on 01/15/17 22:05 ; Admin Dose 28 UNIT; Start 01/15/17 at 20:00 Vancomycin HCl 1.5 gm/Sodium Chloride 250 ml @ 83.333 mls/ hr Q24H IVPB Last administered on 01/15/17 14:26; Admin Dose 83.333 MLS/HR; Start 01/15/17 at 14:00 Piperacillin Sod/ Tazobactam Sod 100 ml @ 200 mls/hr Q8 IVPB Last administered on 01/16/17 05:11; Admin Dose 200 MLS/HR; Start 01/15/17 at 14:00 Sodium Chloride 1,000 ml @ 100 mls/hr Q10H IV Last administered on 01/16/17 01 :03; Admin Dose 100 MLS/HR; Start 01/15/17 at 13:30 Albumin Human (Albumin Human 25%) 100 ml @ 100 mls/hr ONCE ONCE IV ; Start 01/16/17 at 09:00; Stop 01/16/17 at 09:59; Status MICHAEL MINOR January 16, 2017 08:57
[2017-01-16] MEDS: METOPROLOL 25 MG TAB PO SCH ×2 (09:00→21:48)
[2017-01-16] MEDS ORDERED: ALBUMIN HUMAN 25% 100 ML IV ONE (09:00)
[2017-01-16] MEDS: AMIODARONE 200 MG TAB PO SCH ×2 (09:07→21:48)
[2017-01-16] MEDS: morphine (ER) 30 MG TAB PO SCH ×2 (09:07→13:23)
[2017-01-16] MEDS: ASPIRIN 81 MG TAB PO SCH (09:08)
[2017-01-16] MEDS: DULOXETINE 20 MG CAP DR PO SCH (09:09)
[2017-01-16] MEDS: ENOXAPARIN 40 MG/0.4 ML SYG SC SCH (09:15)
[2017-01-16 10:13] LABS: ALBUMIN 2.6 g/dl (3.3-4.9)
[2017-01-16 10:16] LABS: BILIRUBIN,INDIRECT 0.1 mg/dl (0-1.1); BILIRUBIN,TOTAL 0.1 mg/dl (0.2-1.3); TOTAL PROTEIN 5.5 g/dl (6.1-8.1)
[2017-01-16 10:24] LABS: EOSINOPHILS # 0.2 10^3/ul (0.0-0.5); LYMPHOCYTES # 1.2 10^3/ul (0.8-2.9); MONOCYTE # 1.2 10^3/ul (0.3-0.9); NEUTROPHIL # 19.3 10^3/ul (1.6-7.5)
[2017-01-16 10:26] LABS: ANISOCYTOSIS 1+; BURR CELLS OCCASIONAL; PLATELET ESTIMATE PLT APPEAR INCREASED; POIKILOCYTOSIS 1+; POLYCHROMASIA 1+
--- NOTE | 2017-01-16 12:58 | CONS ---
DATE OF ADMISSION: 01/13/2017 DATE OF CONSULTATION: 01/16/2017 TYPE OF CONSULTATION: Nephrology. REASON FOR CONSULTATION: Acute kidney injury. PHYSICIAN REQUESTING CONSULT: Dr. Mendoza. HISTORY OF PRESENT ILLNESS: This is a 66-year-old -[place] female with a past medical histo ry of coronary artery disease, hypertension, dyslipidemia, diabetes, neuropathy, depression, chronic pain syndrome, insomnia, and obesity, who presents to [facility] for evaluation o f a chronic cough and sputum production. The patient in the emergency room had a chest x-ray which showed evidence of an infiltrate. The patient was also noted to be in respiratory distress. She wa s placed on nasal cannula, started on empiric antibiotic therapy and admitted to telemetry. While o n telemetry the patient received aggressive IV antibiotics. The patient was also noted to have a le ft lower extremity wound and has been receiving local wound care. The patient in the last 24 hours; however, has had a significant clinical decline, as she has become hypotensive and has been started on a fluid challenge. The patient was also noted to be confused in the last 24 hours. In terms of the patient's renal history, the patient on admission had a creatinine of 0.53 mg/dL. T he patient's renal function in last 48 hours had climbed to 2.29 mg/dL. During this time the patien t has been noted to be hypertensive, with systolic pressures ranging in the 80s. The patient was als o noted to have worsening leukocytosis during this time, as her white count reached 23,000. The pat ient did receive a CT scan, but this was without IV contrast. There has been no hematuria, hemoptys is, hemetemesis or hematochezia noted. PAST MEDICAL HISTORY: History of hypertension, coronary artery disease, dyslipidemia, diabetes, ari ropathy, depression, chronic pain syndrome. PAST SURGICAL HISTORY: The patient has right hip and right foot surgery, breast surgery, cataract s urgery, coronary bypass surgery. FAMILY HISTORY: Noncontributory. SOCIAL HISTORY: A previous smoker. OUTPATIENT MEDICATIONS: Have been reviewed. ALLERGIES: Have been reviewed. REVIEW OF SYSTEMS: A 14-point review of systems was conducted. Pertinent positives as stated in th e HPI, otherwise negative. PHYSICAL EXAMINATION: VITAL SIGNS: Blood pressure is currently 84/47, respirations 19, pulse 68, temperature 98.2. I's AND O'S: The patient had 1500 in, with 500 out. HEENT: Head is normocephalic. NECK: Supple. HEART: Regular rate. LUNGS: Show diminished breath sounds at the base. ABDOMEN: Soft, nontender to palpation. No rebound or guarding. EXTREMITIES: Negative for clubbing or cyanosis. No edema. DERMATOLOGIC: No rashes. MUSCULOSKELETAL: A noted wound in the left lower extremity NEUROLOGIC: Limited exam, due to lack of patient cooperation. LABORATORY DATA: Shows sodium 131, potassium 5.1, chloride 96, BUN 30, creatinine 2.29. White coun t 23.2, hemoglobin 9.3, hematocrit , platelet count is 488. Imaging studies have been reviewed. CT scan showed a left lower lobe consolidation, possibly relate d to pneumonia. ASSESSMENT AND PLAN: This is a 66-year-old female who presents with: 1. Nonoliguric acute kidney injury, with a previously normal baseline creatinine of 0.53 mg/dL. Et iology of acute kidney injury is concerning for RADHA due to possible septic acute kidney injury, hemo dynamics, ischemic hypoperfusion, nephrotoxicity from vancomycin, IAIN inhibitor effect. Plan at thi s point is to do a full evaluation. Will check a UA with microanalysis. Will check urine electroly sandrine. Will quantify any proteinuria. Agree with checking a renal ultrasound to evaluate renal paren chyma and rule out obstruction, although suspicion is low given the patient's Stearns catheter. Agree with holding vancomycin. Agree with holding IAIN inhibitor. Will continue IV fluid challenge. Rec ommend to maintain a MAP above 65. Would otherwise continue supportive care, renally dose meds, sobia id nephrotoxins and monitor closely. 2. Hypernatremia secondary to acute kidney injury. Has decreased free water urinary excretion. At this point, continue the current fluid challenge with normal saline and monitor sodium levels. 3. Anemia. Continue to monitor hemoglobin and hematocrit levels. 4. Mineral bone disorder. Will monitor calcium and phosphorus levels. 5. Acute encephalopathy. Etiology may be toxic metabolic, opiate-induced, a questionable component of uremia. At this point would continue medical management, consider CT scan of the head to rule o ut a cerebrovascular accident. Would hold opiates at this time and monitor. 6. Sepsis secondary to healthcare-associated pneumonia and cellulitis. Will continue the current t reatment plan and adjust antibiotics in the setting of acute kidney injury. 7. History of coronary artery disease. Continue medical management. 8. Dyslipidemia. Continue statin therapy. 9. Diabetes. Continue Accu-Cheks and insulin sliding scale. 10. History of hypertension. The patient is now hypotensive. This may be due to underlying sepsis or volume depletion. Workup is ongoing. Continue fluid challenge and monitor. Hold blood pressur e medications. Thank you, Dr. Mendoza, for this interesting consult. It will be a pleasure to follow up the patient wi th you throughout the hospital course. Dictated By: BART FIGUEROA DO NR/NTS Conf#: [id number] DID#: [id number]
--- NOTE | 2017-01-16 13:17 | RADRPT ---
PROCEDURE: Renal US. CLINICAL INDICATION: Acute kidney injury. TECHNIQUE: Multiple sonographic images of the kidneys and urinary bladder were obtained. The imag es were reviewed on a PACS workstation. COMPARISON: No prior studies are available for comparison. FINDINGS: The right kidney measures 11.9 cm. The left kidney measures 11.9 cm. There is no renal mass. There is no hydronephrosis. There is no renal calculus. Renal parenchymal thickness is normal bilaterally. Both kidneys are hyperechoic consistent with medical renal disease. The perirenal regions are normal with no fluid collection or mass. There is a Stearns catheter in the urinary bladder. IMPRESSION: 1. No hydronephrosis. 2. Bilateral hyperechoic kidneys consistent with medical renal disease. 3. Stearns catheter in the bladder. 4. Otherwise normal renal ultrasound. RPTAT: QQ .Sly Hollis MD, Date Time Electronically viewed and signed by .Sly Hollis MD, MD on 01/16/2017 13:17 .R/
[2017-01-16 13:19] LABS: ADD UMIC YES; URINE BLOOD (Dip) 3+ (NEGATIVE); URINE COLOR YELLOW (YELLOW); URINE GLUCOSE (Dip) NEGATIVE (NEGATIVE); URINE KETONES (Dip) TRACE (NEGATIVE); URINE LEUKOCYTE ESTERASE (Dip) 3+ (NEGATIVE); URINE NITRITE (Dip) NEGATIVE (NEGATIVE); URINE TOTAL PROTEIN (Dip) 4+ (NEGATIVE); URINE UROBILINOGEN (Dip) 0.2 E.U./dL (0.1-1.0)
[2017-01-16 13:38] LABS: URINE BILIRUBIN (Dip) NEGATIVE (NEGATIVE)
[2017-01-16] MEDS ORDERED: PIPER-TAZO 2.25 GM (PMX) 50 ML IVPB SCH (14:00)
[2017-01-16] MEDS ORDERED: NALOXONE (0.4 MG/ML) INJ ONE (18:26)
[2017-01-16] MEDS ORDERED: NALOXONE (0.4 MG/ML) INJ IV ONE (18:30)
[2017-01-16] MEDS: ATORVASTATIN 40 MG TAB PO SCH (21:47)
[2017-01-16] MEDS: ZYVOX 600 MG TAB PO SCH (21:47)
[2017-01-16] MEDS: MONTELUKAST 10 MG TAB NGT SCH (21:48)
[2017-01-16] MEDS: MEROPENEM 500 MG/100 ML (PMX) 100 ML IVPB SCH (21:50)
[2017-01-16] MEDS: INSULIN DETEMIR [LEVEMIR] 3ML CART SC SCH (21:56)
[2017-01-17] VITALS (30 sets, daily range): BP systolic 88–139; BP diastolic 36–97; PULSE 59–74; RESP 12–21
[2017-01-17] MEDS: ALBUTEROL 0.083% (NEB) 2.5 MG/3 ML AMP HHN SCH ×6 (01:16→21:11)
[2017-01-17 01:52] LABS: AADO2 Arterial 55.8 mmHg (7.0-24.0); Allen Test ACCEPTAB; Arterial Base Excess -1.8 mmol/L (-3.0-3); Arterial COHb 0 % (0.0-3.0); Arterial Fraction of Oxyhgb 93.4 % (93.0-99.0); Arterial HCO3 25.4 mmol/L (22.0-26.0); Arterial MetHb 0.5 % (0.0-1.5); Arterial Total Hemglobin 9.9 g/dl (12.0-18.0); MODE NASAL CANNULA
[2017-01-17] MEDS: ACCU-CHEK XX SCH (02:02)
[2017-01-17 02:08] LABS: ADD SCAN DIFF NO
[2017-01-17 02:10] LABS: ABNORMAL IP MESSAGE 1; BASOPHIL # 0.1 10^3/ul (0.0-0.1); BASOPHILS % 0.2 % (0.0-2.0); EOSINOPHILS # 0.1 10^3/ul (0.0-0.5); EOSINOPHILS % 0.3 % (0.0-7.0); HEMATOCRIT 27.4 % (37.0-47.0); HEMOGLOBIN 8.6 g/dl (12.0-16.0); LYMPHOCYTES # 1.3 10^3/ul (0.8-2.9); LYMPHOCYTES % 6.4 % (15.0-51.0); MEAN CORPUSCULAR HGB CONC 31.4 g/dl (32.0-37.0); MEAN CORPUSCULAR VOLUME 92.3 fl (82.0-101.0); MEAN PLATELET VOLUME 9.5 fl (7.4-10.4); MONOCYTE # 1.6 10^3/ul (0.3-0.9); MONOCYTES % 7.4 % (0.0-11.0); NEUTROPHIL # 17.7 10^3/ul (1.6-7.5); NEUTROPHILS % 84.5 % (39.0-77.0); PLATELET COUNT 441 10^3/UL (140-415); RED BLOOD COUNT 2.97 10^6/ul (4.20-5.40); RED CELL DISTRIBUTION WIDTH 15.4 % (11.5-14.5); WHITE BLOOD COUNT 20.9 10^3/ul (4.8-10.8)
[2017-01-17 02:26] LABS: ADD UMIC YES; URINE BILIRUBIN (Dip) 1+ (NEGATIVE); URINE BLOOD (Dip) 3+ (NEGATIVE); URINE COLOR YELLOW (YELLOW); URINE GLUCOSE (Dip) NEGATIVE (NEGATIVE); URINE KETONES (Dip) NEGATIVE (NEGATIVE); URINE LEUKOCYTE ESTERASE (Dip) 2+ (NEGATIVE); URINE NITRITE (Dip) NEGATIVE (NEGATIVE); URINE TOTAL PROTEIN (Dip) 2+ (NEGATIVE); URINE UROBILINOGEN (Dip) 1.0 E.U./dL (0.1-1.0)
[2017-01-17 02:32] LABS: ALBUMIN 2.4 g/dl (3.3-4.9); POTASSIUM 5.6 mmol/L (3.5-5.1)
[2017-01-17 02:34] LABS: CREATININE 2.71 mg/dl (0.44-1.00)
[2017-01-17 02:35] LABS: ALBUMIN/GLOBULIN RATIO 0.96; BILIRUBIN,INDIRECT 0.1 mg/dl (0-1.1); BILIRUBIN,TOTAL 0.1 mg/dl (0.2-1.3); CALCIUM 7.6 mg/dl (8.4-10.2); TOTAL PROTEIN 4.9 g/dl (6.1-8.1)
[2017-01-17 02:41] LABS: BACTERIA,URINE MANY; ICTOTEST NEGATIVE (NEGATIVE); URINE RBCS >50 /HPF (0)
--- NOTE | 2017-01-17 05:10 | PN ---
DATE: 01/16/2017 SUBJECTIVE: No acute events overnight. The patient is awake, complaining of feeling tired. No nausea, vomiting, diarrhea. No fevers. LABORATORY DATA: WBC today 23.2, platelets 488, neutrophils 83, bands 6, lymphs 5, monos 5. Sodium 131, BUN 30, creatinine 2.29. MICROBIOLOGY: Left lower extremity wound culture grew MRSA. ANTIMICROBIALS: 1. Vancomycin. 2. Zosyn. PHYSICAL EXAMINATION: GENERAL: This is a morbidly obese, well-developed, elderly woman who is in no distress. HEENT: Head atraumatic, normocephalic. Sclerae are anicteric. Buccal mucosa dry. NECK: Supple, trachea midline. CHEST: Rise symmetrical. Breath sounds clear, diminished to bases. HEART: S1, S2. ABDOMEN: Soft. Bowel tones present. EXTREMITIES: Without cyanosis. ASSESSMENT: 1. Sepsis with fevers and leukocytosis. 2. Left lower extremity methicillin-resistant Staphylococcus aureus infected wound. 3. Healthcare-associated pneumonia. 4. Acute renal failure. 5. Obesity. 6. Diabetes with diabetic neuropathy. PLAN: The patient remains stable. We are going to change abx to Zyvox and meropenem given worsening renal function. Follow chest x-ray. Follow nephrology recommendations. Continue local wound care. Dictated By: WESLEY LIRIANO TICKET PULLER for [facility]/[place] Conf#: [id number] DID#: [id number] MTDD
[2017-01-17 05:11] LABS: AADO2 Arterial 74.7 mmHg (7.0-24.0); Allen Test ACCEPTAB; Arterial Base Excess -1.5 mmol/L (-3.0-3); Arterial COHb 0.2 % (0.0-3.0); Arterial Fraction of Oxyhgb 91.7 % (93.0-99.0); Arterial HCO3 25.8 mmol/L (22.0-26.0); Arterial MetHb 0.5 % (0.0-1.5); Arterial Total Hemglobin 9.5 g/dl (12.0-18.0); Blood Gas IEPAP 15/5; MODE MASK - BIPAP
--- NOTE | 2017-01-17 05:48 | PN ---
Date/Time of Note Date/Time of Note DATE: 01/17/17 TIME: 05:31 Assessment/Plan VTE Prophylaxis VTE Prophylaxis Intervention: LMWH Lines/Catheters IV Catheter Type (from Nrs): Peripheral IV Urinary Cath still in place: Yes Reason Cath still needed: other (indicate) (wound/infection) Assessment/Plan Chief Complaint/Hosp Course This is a 66-year-old female with change in mental status. -Stat ABG showed pH of 7.28 with a CO2 of 57 bicarb of 25 and O2 78 with O2 saturation of 93. Patient was started on BiPAP. -Stat CBC CMP and lactate was ordered. patient currently on multiple antibiotics.. At this time based on patient's clinical presentation I do not think that this is an acute stroke as she is moving her upper extremities bilaterally and she also through the SHOTBLAST OPERATOR also begin moving her feet and toes as well bilaterally with strength intact on both sides. I also do not think it is any other acute intracranial pathology such as a hemorrhage based on her clinical presentation. No recent falls. I think this is more likely related to delirium secondary to sepsis/multiple infections. At the current time continue current antibiotic care. Will provide respiratory support with BiPAP repeat ABG in an hour. Throughout the SHOTBLAST OPERATOR patient did begin to verbalize more as well as respond faster to verbal stimuli. We will continue to monitor her. If no improvement may consider CT of the head. Problems: Subjective 24 Hr Interval Summary Free Text/Dictation SHOTBLAST OPERATOR: The patient had approximately 1:36 AM. Patient was noted to be altered. Earlier according to the nurse patient was alert and oriented 2. Earlier in the daytime patient was also found to be altered at that time which was thought likely due to the narcotic medications she was given Narcan which subsequently helped improve her symptoms. At this time though she did not receive any opiate medications. She gradually has slowly altered over the course of the last couple hours since the change of nursing shift around 7 PM. Her vital signs remained stable. She was examined at the bedside. Patient is awake with eyes open she is looking around. Patient is moving her hands bilaterally. She has been treated for healthcare associated pneumonia as well as wound. She is on multiple antibiotics at this time. She is also dealing with acute renal failure. Subjective hx not possible: other (Patient awake and looking around however limited in verbal response secondary to her condition) Exam/Review of Systems Vital Signs Vitals Vital Signs Date Time Temp Pulse Resp B/P Pulse Ox O2 Delivery O2 Flow Rate FiO2 01/17/17 05:20 68 96 40 01/17/17 04:05 97.6 20 139/50 01/17/17 01:16 2.0 01/17/17 01:16 Nasal Cannula Intake and Output 01/16/17 01/16/17 01/17/17 15:00 23:00 07:00 Intake Total 100 ml 400 ml Output Total 70 ml Balance 30 ml 400 ml Exam General: Patient is sitting upright in bed with her eyes open looking around the room. She does turn her head when her name is called. She does not look in any distress. The patient is alert oriented -3 lying comfortably in bed. HEENT: Atraumatic, normocephalic. Bilateral pupils equal and reactive to light Neck: Supple with full range of motion. No nuchal rigidity Chest: Nontender Lungs: Coarse breath sounds Heart: Normal S1-S2, Regular rhythm and rate. No murmur Abdomen: Soft , nontender, nondistended , bowel sounds are present. No guarding no rebound tenderness , No masses or organomegaly. No costovertebral temporal angle mass Extremities: Normal to inspection, no edema no cyanosis Neurologic: Limited exam secondary to clinical condition. Patient does lift her arms bilaterally. She did squeeze my hands bilaterally with strength appearing equal in both hands. There is no facial droop. Results Result Diagram: 01/17/17 0206 01/17/17 0206 Results 24 hrs Laboratory Tests Test 01/16/17 05:55 01/16/17 07:33 01/16/17 11:47 01/16/17 12:00 White Blood Count 23.2 H Red Blood Count 3.26 L Hemoglobin 9.3 L Hematocrit 30.8 L Mean Corpuscular Volume 94.5 Mean Corpuscular Hemoglobin 28.5 L Mean Corpuscular Hemoglobin Concent 30.2 L Red Cell Distribution Width 15.8 H Platelet Count 488 H Mean Platelet Volume 9.5 Neutrophils % 83.0 H Band Neutrophils % 6.0 H Lymphocytes % 5.0 L Monocytes % 5.0 Eosinophils % 1.0 Neutrophils # 19.3 H Lymphocytes # 1.2 Monocytes # 1.2 H Eosinophils # 0.2 Platelet Estimate PLT APPEAR INCREASED Large Platelets OCCASIONAL Polychromasia 1+ Poikilocytosis 1+ Basophilic Stippling OCCASIONAL Anisocytosis 1+ Sodium Level 131 L Potassium Level 5.1 Chloride Level 96 L Carbon Dioxide Level 30 Anion Gap 10 Blood Urea Nitrogen 30 #H Creatinine 2.29 #H Glucose Level 152 Calcium Level 7.7 L Total Bilirubin 0.1 L Direct Bilirubin 0.00 Indirect Bilirubin 0.1 Aspartate Amino Transf (AST/SGOT) 52 H Alanine Aminotransferase (ALT/SGPT) 55 Alkaline Phosphatase 117 Total Protein 5.5 L Albumin 2.6 L Bedside Glucose 159 139 Urine Color YELLOW Urine Clarity CLOUDY Urine pH 5.0 Urine Specific [place] 1.025 Urine Ketones TRACE H Urine Nitrite NEGATIVE Urine Bilirubin NEGATIVE Urine Urobilinogen 0.2 E.U./dL Urine Leukocyte Esterase 3+ H Urine Microscopic RBC 2-5 Urine Microscopic WBC >200 Urine Yeast FEW Urine Hemoglobin 3+ H Urine Glucose NEGATIVE Urine Total Protein 4+ H Test 01/16/17 13:14 01/16/17 17:22 01/16/17 21:47 01/17/17 01:38 Urine Random Creatinine 167.03 Urine Random Sodium 38 Urine Total Protein 347.0 H Bedside Glucose 160 133 127 Test 01/17/17 01:40 01/17/17 01:47 01/17/17 02:06 01/17/17 05:00 Blood Gas Specimen Source Blood arterial Blood arterial Arterial Blood Date Drawn 01/17/2017 1:40:15 AM 01/17/2017 5:00:05 AM Arterial Blood pH (Temp corrected) 7.280 *L 7.272 *L Arterial Blood pCO2 (Temp correct) 55.2 H 57.3 H Arterial Blood pO2 (Temp corrected) 78.7 L 71.9 L Arterial Blood HCO3 25.4 25.8 Arterial Blood Base Excess -1.8 -1.5 Arterial Blood Oxygen Saturation 93.9 L 92.3 L Amor Test ACCEPTAB ACCEPTAB Arterial Blood Gas Puncture Site Right Radial Right Radial Arterial Blood Carboxyhemoglobin 0 0.2 Arterial Blood Methemoglobin 0.5 0.5 Blood Gas A-a O2 Differential 55.8 H 74.7 H Oxyhemoglobin Percent 93.4 91.7 L Total Hemoglobin 9.9 L 9.5 L Blood Gas Temperature 37.0 37.0 Blood Gas Modality NASAL CANNULA MASK - BIPAP FiO2 28.0 30.0 Blood Gas Critical Value Read Back Olivia HSU RN, MD Blood Gas Notified Whom GURDEEP ARSHAD Blood Gas Notified Time 01/17/2017 1:51:48 AM 01/17/2017 5:06:46 AM Urine Color YELLOW Urine Clarity TURBID Urine pH 5.0 Urine Specific [place] >=1.030 H Urine Ketones NEGATIVE Urine Nitrite NEGATIVE Urine Bilirubin 1+ H Urine Ictotest NEGATIVE Urine Urobilinogen 1.0 E.U./dL Urine Leukocyte Esterase 2+ H Urine Microscopic RBC >50 Urine Microscopic WBC >200 Urine Amorphous Urates FEW Urine Bacteria MANY Urine Yeast FEW Urine Eosinophils % 0.0 Urine Hemoglobin 3+ H Urine Glucose NEGATIVE Urine Total Protein 2+ H White Blood Count 20.9 H Red Blood Count 2.97 L Hemoglobin 8.6 L Hematocrit 27.4 L Mean Corpuscular Volume 92.3 Mean Corpuscular Hemoglobin 29.0 Mean Corpuscular Hemoglobin Concent 31.4 L Red Cell Distribution Width 15.4 H Platelet Count 441 H Mean Platelet Volume 9.5 Neutrophils % 84.5 H Lymphocytes % 6.4 L Monocytes % 7.4 Eosinophils % 0.3 Basophils % 0.2 Nucleated Red Blood Cells % 0.0 Neutrophils # 17.7 H Lymphocytes # 1.3 Monocytes # 1.6 H Eosinophils # 0.1 Basophils # 0.1 Nucleated Red Blood Cells # 0.0 Sodium Level 134 L Potassium Level 5.6 H Chloride Level 95 L Carbon Dioxide Level 28 Anion Gap 17 #H Blood Urea Nitrogen 41 #H Creatinine 2.71 H Glucose Level 106 # Lactic Acid Level 0.9 Calcium Level 7.6 L Total Bilirubin 0.1 L Direct Bilirubin 0.00 Indirect Bilirubin 0.1 Aspartate Amino Transf (AST/SGOT) 35 Alanine Aminotransferase (ALT/SGPT) 49 Alkaline Phosphatase 113 Total Protein 4.9 L Albumin 2.4 L Globulin 2.50 Albumin/Globulin Ratio 0.96 Blood Gas Respiration Rate 16.0 Blood Gas Actual Respiration Rate 20 Blood Gas IPAP/EPAP Ratio 15/5 Medications Medications Current Medications Aspirin (Aspirin) 81 mg DAILY PO Last administered on 01/16/17 09:08; Admin Dose 81 MG; Start 01/14/17 at 09:00 Atorvastatin Calcium (Lipitor) 40 mg HS PO Last administered on 01/16/17 21:47 ; Admin Dose 40 MG; Start 01/13/17 at 21:00 Metoprolol Tartrate (Lopressor) 25 mg BID PO Last administered on 01/16/17 21: 48; Admin Dose 25 MG; Start 01/13/17 at 21:00 Amiodarone HCl (Cordarone) 200 mg BID PO Last administered on 01/16/17 21:48; Admin Dose 200 MG; Start 01/13/17 at 21:00 Docusate Sodium (Colace) 100 mg Q12H PO Last administered on 01/16/17 21:48; Admin Dose 100 MG; Start 01/13/17 at 19:30 Duloxetine HCl (Cymbalta) 20 mg DAILY PO Last administered on 01/16/17 09:09; Admin Dose 20 MG; Start 01/14/17 at 09:00 Lisinopril (Zestril) 2.5 mg DAILY NGT Last administered on 01/15/17 09:00; Admin Dose 2.5 MG; Start 01/14/17 at 09:00; Status Future Hold Al Hydrox/Mg Hydrox/Simethicone (Mag-Al Plus) 30 ml Q4H PRN PO GASTROINTESTINAL UPSET; Start 01/13/17 at 19:30 Montelukast Sodium (Singulair) 10 mg HS NGT Last administered on 01/16/17 21:48 ; Admin Dose 10 MG; Start 01/13/17 at 21:00 Nitroglycerin (Nitroglycerin (Sl Tab) 0.4 Mg) 1 tab Q5M PRN SL CHEST PAIN; Start 01/13/17 at 19:30 Oxycodone/ Acetaminophen (Percocet (5/ 325)) 1 tab Q4 PRN PO SEVERE PAIN LEVEL 7-10 Last administered on 01/15/17 08:59; Admin Dose 1 TAB; Start 01/13/17 at 19: 30 Diagnostic Test (Pha) (Accu-Chek) 1 ea 02 XX Last administered on 01/17/17 02: 02; Admin Dose 1 EA; Start 01/14/17 at 02:00 Miscellaneous Information 1 ea NOTE XX ; Start 01/13/17 at 20:00 Glucose (Glutose) 15 gm Q15M PRN PO DECREASED GLUCOSE; Start 01/13/17 at 20:00 Glucose (Glutose) 22.5 gm Q15M PRN PO DECREASED GLUCOSE; Start 01/13/17 at 20:00 Dextrose (D50w Syringe) 25 ml Q15M PRN IV DECREASED GLUCOSE; Start 01/13/17 at 20:00 Dextrose (D50w Syringe) 50 ml Q15M PRN IV DECREASED GLUCOSE; Start 01/13/17 at 20:00 Glucagon (Glucagen) 1 mg Q15M PRN IM DECREASED GLUCOSE; Start 01/13/17 at 20:00 Glucose (Glutose) 15 gm Q15M PRN BUCCAL DECREASED GLUCOSE; Start 01/13/17 at 20: 00 [facility] This patient panda... PRN PRN XX WOUND CARE; Start 01/14/17 at 11:00 Pantoprazole (Protonix Tab) 40 mg DAILY@06 PO Last administered on 01/16/17 05: 10; Admin Dose 40 MG; Start 01/15/17 at 06:00 Insulin Detemir 28 unit 28 unit DAILY@20 SC Last administered on 01/16/17 21:56 ; Admin Dose 28 UNIT; Start 01/15/17 at 20:00 Sodium Chloride (NS) 1,000 ml @ 100 mls/hr Q10H IV Last administered on 18:29; Admin Dose 100 MLS/HR; Start 01/15/17 at 13:30 Enoxaparin Sodium 30 mg 30 mg DAILY SC ; Start 01/17/17 at 09:00 Meropenem (Merrem 500 Mg/ 100 ml (Pmx)) 100 ml @ 200 mls/hr Q12 IVPB Last administered on 01/16/17 21:50; Admin Dose 200 MLS/HR; Start 01/16/17 at 21:00 Linezolid (Zyvox) 600 mg BID PO Last administered on 01/16/17 21:47; Admin Dose 600 MG; Start 01/16/17 at 21:00 LUKE TANNER January 17, 2017 05:44
[2017-01-17] MEDS: PANTOPRAZOLE (EC) 40 MG TAB PO SCH (06:00)
[2017-01-17 06:46] LABS: AADO2 Arterial 542.7 mmHg (7.0-24.0); Allen Test ACCEPTAB; Arterial Base Excess 0.6 mmol/L (-3.0-3); Arterial COHb 0.3 % (0.0-3.0); Arterial Fraction of Oxyhgb 96.6 % (93.0-99.0); Arterial HCO3 28.1 mmol/L (22.0-26.0); Arterial MetHb 0.6 % (0.0-1.5); Arterial Total Hemglobin 9.6 g/dl (12.0-18.0); Blood Gas IEPAP 20/10; MODE MASK - BIPAP
[2017-01-17 07:12] LABS: ADD SCAN DIFF NO
[2017-01-17 07:21] LABS: ABNORMAL IP MESSAGE 1; BASOPHIL # 0.1 10^3/ul (0.0-0.1); BASOPHILS % 0.3 % (0.0-2.0); EOSINOPHILS # 0.1 10^3/ul (0.0-0.5); EOSINOPHILS % 0.4 % (0.0-7.0); HEMOGLOBIN 8.5 g/dl (12.0-16.0); LYMPHOCYTES # 1.7 10^3/ul (0.8-2.9); LYMPHOCYTES % 8.7 % (15.0-51.0); MEAN CORPUSCULAR HEMOGLOBIN 28.6 pg (29.0-33.0); MEAN CORPUSCULAR HGB CONC 30.4 g/dl (32.0-37.0); MEAN CORPUSCULAR VOLUME 94.3 fl (82.0-101.0); MEAN PLATELET VOLUME 9.7 fl (7.4-10.4); MONOCYTE # 1.7 10^3/ul (0.3-0.9); MONOCYTES % 8.8 % (0.0-11.0); NEUTROPHIL # 15.6 10^3/ul (1.6-7.5); NEUTROPHILS % 80.6 % (39.0-77.0); PLATELET COUNT 409 10^3/UL (140-415); RED BLOOD COUNT 2.97 10^6/ul (4.20-5.40); RED CELL DISTRIBUTION WIDTH 15.5 % (11.5-14.5); WHITE BLOOD COUNT 19.4 10^3/ul (4.8-10.8)
--- NOTE | 2017-01-17 07:33 | PN ---
Date/Time of Note Date/Time of Note DATE: 01/17/17 TIME: 07:32 Assessment/Plan VTE Prophylaxis VTE Prophylaxis Intervention: LMWH Lines/Catheters IV Catheter Type (from Nrsg): Peripheral IV Urinary Cath still in place: Yes Reason Cath still needed: other (indicate) Assessment/Plan Assessment/Plan 66 yo F who presented with SOB managed for 1. Acute Hypercapneic Resp failure on bipap: ?aspiration 2. Sepsis 2/2 L sided Persistent pneumonia and MRSA Cellulitis 3. L calf wound MRSA infection and cellulitis now with Sepsis 4. Coronary artery disease s/p CABG 12/07/2016 5. Hypertension : controlled 6. Dyslipidemia 7. Diabetes mellitus with diabetic neuropathy 8. Chronic depression: stable 9. Obesity / ?PCOS 10. Nicotine dependency 11. Hypomagnesemia 12. New onset renal failure: ?ATN from sepsis 13. Chest pain likely 2/2 #2 : improved PLAN: * Repeat Stat ABG / Patient's previous dosing of MScontin may now be too much in view of new renal failure, hence will give one dose of Narcan * Continue broad spectrum antibiotics * Hold all home meds that may affect her mentation * NPO for now / Speech therapy eval * ICU transfer for close monitoring * Pulmonary consult * Supportive care Subjective 24 Hr Interval Summary Free Text/Dictation Patient decompensated overnight and became more altered. ABG showed acidosis and patient was started on Bipap therapy. Patient will arouse to stimulation and but is still confused Looks comfortable on Bipap while sleeping however. Exam/Review of Systems Vital Signs Vitals Vital Signs Date Time Temp Pulse Resp B/P Pulse Ox O2 Delivery O2 Flow Rate FiO2 01/17/17 07:16 65 94 28 01/17/17 04:05 97.6 20 139/50 01/17/17 01:16 2.0 01/17/17 01:16 Nasal Cannula Intake and Output 01/16/17 01/16/17 01/17/17 15:00 23:00 07:00 Intake Total 100 ml 950 ml 780 ml Output Total 70 ml 400 ml Balance 30 ml 950 ml 380 ml Exam Constitutional: altered, obese, oriented, other (male distribution of facial hair) Psych: Unable to assess Eyes: PERRL, No icteric ENMT: mucosa pink and moist Neck: non-tender, supple, No bruits, No jvd Respiratory: diminished breath sounds, No crackles/rales, No wheezing Cardiovascular: No murmurs/extra sounds, regular rate and rhythm Extremities: edema (on L LE with old surgical scar with yellowish mild drainage, less erythema, however with induration extending superiorly to mid thigh) Constitutional: other (arousable), No distress Results Result Diagram: 01/17/17 0206 01/17/17 0206 Results 24 hrs Laboratory Tests Test 01/16/17 07:33 01/16/17 11:47 01/16/17 12:00 01/16/17 13:14 Bedside Glucose 159 139 Urine Color YELLOW Urine Clarity CLOUDY Urine pH 5.0 Urine Specific [place] 1.025 Urine Ketones TRACE H Urine Nitrite NEGATIVE Urine Bilirubin NEGATIVE Urine Urobilinogen 0.2 E.U./dL Urine Leukocyte Esterase 3+ H Urine Microscopic RBC 2-5 Urine Microscopic WBC >200 Urine Yeast FEW Urine Hemoglobin 3+ H Urine Glucose NEGATIVE Urine Total Protein 4+ H 347.0 H Urine Random Creatinine 167.03 Urine Random Sodium 38 Test 01/16/17 17:22 01/16/17 21:47 01/17/17 01:38 01/17/17 01:40 Bedside Glucose 160 133 127 Blood Gas Specimen Source Blood arterial Arterial Blood Date Drawn 01/17/2017 1:40:15 AM Arterial Blood pH (Temp corrected) 7.280 *L Arterial Blood pCO2 (Temp correct) 55.2 H Arterial Blood pO2 (Temp corrected) 78.7 L Arterial Blood HCO3 25.4 Arterial Blood Base Excess -1.8 Arterial Blood Oxygen Saturation 93.9 L Amor Test ACCEPTAB Arterial Blood Gas Puncture Site Right Radial Arterial Blood Carboxyhemoglobin 0 Arterial Blood Methemoglobin 0.5 Blood Gas A-a O2 Differential 55.8 H Oxyhemoglobin Percent 93.4 Total Hemoglobin 9.9 L Blood Gas Temperature 37.0 Blood Gas Modality NASAL CANNULA FiO2 28.0 Blood Gas Critical Value Read Back [email or web address] RN Blood Gas Notified Whom MA Blood Gas Notified Time 01/17/2017 1:51:48 AM Test 01/17/17 01:47 01/17/17 02:06 01/17/17 05:00 01/17/17 06:00 Urine Color YELLOW Urine Clarity TURBID Urine pH 5.0 Urine Specific [place] >=1.030 H Urine Ketones NEGATIVE Urine Nitrite NEGATIVE Urine Bilirubin 1+ H Urine Ictotest NEGATIVE Urine Urobilinogen 1.0 E.U./dL Urine Leukocyte Esterase 2+ H Urine Microscopic RBC >50 Urine Microscopic WBC >200 Urine Amorphous Urates FEW Urine Bacteria MANY Urine Yeast FEW Urine Eosinophils % 0.0 Urine Hemoglobin 3+ H Urine Glucose NEGATIVE Urine Total Protein 2+ H White Blood Count 20.9 H Red Blood Count 2.97 L Hemoglobin 8.6 L Hematocrit 27.4 L Mean Corpuscular Volume 92.3 Mean Corpuscular Hemoglobin 29.0 Mean Corpuscular Hemoglobin Concent 31.4 L Red Cell Distribution Width 15.4 H Platelet Count 441 H Mean Platelet Volume 9.5 Neutrophils % 84.5 H Lymphocytes % 6.4 L Monocytes % 7.4 Eosinophils % 0.3 Basophils % 0.2 Nucleated Red Blood Cells % 0.0 Neutrophils # 17.7 H Lymphocytes # 1.3 Monocytes # 1.6 H Eosinophils # 0.1 Basophils # 0.1 Nucleated Red Blood Cells # 0.0 Sodium Level 134 L Potassium Level 5.6 H Chloride Level 95 L Carbon Dioxide Level 28 Anion Gap 17 #H Blood Urea Nitrogen 41 #H Creatinine 2.71 H Glucose Level 106 # Lactic Acid Level 0.9 Calcium Level 7.6 L Total Bilirubin 0.1 L Direct Bilirubin 0.00 Indirect Bilirubin 0.1 Aspartate Amino Transf (AST/SGOT) 35 Alanine Aminotransferase (ALT/SGPT) 49 Alkaline Phosphatase 113 Total Protein 4.9 L Albumin 2.4 L Globulin 2.50 Albumin/Globulin Ratio 0.96 Blood Gas Specimen Source Blood arterial Blood arterial Arterial Blood Date Drawn 01/17/2017 5:00:05 AM 01/17/2017 6:30:01 AM Arterial Blood pH (Temp corrected) 7.272 *L 7.276 *L Arterial Blood pCO2 (Temp correct) 57.3 H 61.8 H Arterial Blood pO2 (Temp corrected) 71.9 L 108.5 H Arterial Blood HCO3 25.8 28.1 H Arterial Blood Base Excess -1.5 0.6 Arterial Blood Oxygen Saturation 92.3 L 97.5 Amor Test ACCEPTAB ACCEPTAB Arterial Blood Gas Puncture Site Right Radial Left Radial Arterial Blood Carboxyhemoglobin 0.2 0.3 Arterial Blood Methemoglobin 0.5 0.6 Blood Gas A-a O2 Differential 74.7 H 542.7 H Oxyhemoglobin Percent 91.7 L 96.6 Total Hemoglobin 9.5 L 9.6 L Blood Gas Temperature 37.0 37.0 Blood Gas Respiration Rate 16.0 20.0 Blood Gas Actual Respiration Rate 20 21 Blood Gas Modality MASK - BIPAP MASK - BIPAP FiO2 30.0 100.0 Blood Gas IPAP/EPAP Ratio 25/01 02/07 Blood Gas Critical Value Read Back Olivia TANNER MD, MD Blood Gas Notified Whom JEANCARLOS MACKENZIE Blood Gas Notified Time 01/17/2017 5:06:46 AM 01/17/2017 6:45:45 AM Medications Medications Current Medications Aspirin (Aspirin) 81 mg DAILY PO Last administered on 01/16/17 09:08; Admin Dose 81 MG; Start 01/14/17 at 09:00 Atorvastatin Calcium (Lipitor) 40 mg HS PO Last administered on 01/16/17 21:47 ; Admin Dose 40 MG; Start 01/13/17 at 21:00 Metoprolol Tartrate (Lopressor) 25 mg BID PO Last administered on 01/16/17 21: 48; Admin Dose 25 MG; Start 01/13/17 at 21:00 Amiodarone HCl (Cordarone) 200 mg BID PO Last administered on 01/16/17 21:48; Admin Dose 200 MG; Start 01/13/17 at 21:00 Docusate Sodium (Colace) 100 mg Q12H PO Last administered on 01/16/17 21:48; Admin Dose 100 MG; Start 01/13/17 at 19:30 Duloxetine HCl (Cymbalta) 20 mg DAILY PO Last administered on 01/16/17 09:09; Admin Dose 20 MG; Start 01/14/17 at 09:00 Lisinopril (Zestril) 2.5 mg DAILY NGT Last administered on 01/15/17 09:00; Admin Dose 2.5 MG; Start 01/14/17 at 09:00; Status Future Hold Al Hydrox/Mg Hydrox/Simethicone (Mag-Al Plus) 30 ml Q4H PRN PO GASTROINTESTINAL UPSET; Start 01/13/17 at 19:30 Montelukast Sodium (Singulair) 10 mg HS NGT Last administered on 01/16/17 21:48 ; Admin Dose 10 MG; Start 01/13/17 at 21:00 Nitroglycerin (Nitroglycerin (Sl Tab) 0.4 Mg) 1 tab Q5M PRN SL CHEST PAIN; Start 01/13/17 at 19:30 Oxycodone/ Acetaminophen (Percocet (5/ 325)) 1 tab Q4 PRN PO SEVERE PAIN LEVEL 7-10 Last administered on 01/15/17 08:59; Admin Dose 1 TAB; Start 01/13/17 at 19: 30 Diagnostic Test (Pha) (Accu-Chek) 1 ea 02 XX Last administered on 01/17/17 02: 02; Admin Dose 1 EA; Start 01/14/17 at 02:00 Miscellaneous Information 1 ea NOTE XX ; Start 01/13/17 at 20:00 Glucose (Glutose) 15 gm Q15M PRN PO DECREASED GLUCOSE; Start 01/13/17 at 20:00 Glucose (Glutose) 22.5 gm Q15M PRN PO DECREASED GLUCOSE; Start 01/13/17 at 20:00 Dextrose (D50w Syringe) 25 ml Q15M PRN IV DECREASED GLUCOSE; Start 01/13/17 at 20:00 Dextrose (D50w Syringe) 50 ml Q15M PRN IV DECREASED GLUCOSE; Start 01/13/17 at 20:00 Glucagon (Glucagen) 1 mg Q15M PRN IM DECREASED GLUCOSE; Start 01/13/17 at 20:00 Glucose (Glutose) 15 gm Q15M PRN BUCCAL DECREASED GLUCOSE; Start 01/13/17 at 20: 00 [facility] This patient panda... PRN PRN XX WOUND CARE; Start 01/14/17 at 11:00 Pantoprazole (Protonix Tab) 40 mg DAILY@06 PO Last administered on 01/16/17 05: 10; Admin Dose 40 MG; Start 01/15/17 at 06:00 Insulin Detemir 28 unit 28 unit DAILY@20 SC Last administered on 01/16/17 21:56 ; Admin Dose 28 UNIT; Start 01/15/17 at 20:00 Sodium Chloride (NS) 1,000 ml @ 100 mls/hr Q10H IV Last administered on 18:29; Admin Dose 100 MLS/HR; Start 01/15/17 at 13:30 Enoxaparin Sodium 30 mg 30 mg DAILY SC ; Start 01/17/17 at 09:00 Meropenem (Merrem 500 Mg/ 100 ml (Pmx)) 100 ml @ 200 mls/hr Q12 IVPB Last administered on 01/16/17 21:50; Admin Dose 200 MLS/HR; Start 01/16/17 at 21:00 Linezolid (Zyvox) 600 mg BID PO Last administered on 01/16/17 21:47; Admin Dose 600 MG; Start 01/16/17 at 21:00 MICHAEL AUGUSTIN January 17, 2017 07:33
[2017-01-17] MEDS: INSULIN ASPART [NOVOLOG] 3 ML PEN SC SCH ×6 (07:40→21:00)
[2017-01-17 07:42] LABS: CALCIUM 7.5 mg/dl (8.4-10.2); CREATININE 2.8 mg/dl (0.44-1.00); PHOSPHORUS 6.6 mg/dl (2.5-4.9); POTASSIUM 5.3 mmol/L (3.5-5.1)
--- NOTE | 2017-01-17 08:40 | PN ---
DATE: 01/17/2017 SUBJECTIVE: The patient had a clinical decline yesterday as she became more altered, obtunded, and ABG was obtained which showed the patient having hypercapnia with pCO2's as high as 55 and 57. The patient was placed on BiPAP. The patient's urinary output did improve overnight as she made 400 mL. No other events noted. No hemoptysis, hematemesis or hematochezia. OBJECTIVE: VITAL SIGNS: Blood pressure 139/50, respirations 20, pulse 70, temperature 97.6. I's AND O's: The patient had 1800 in with 470 out. HEENT: Head is normocephalic. NECK: Supple. HEART: Regular rate. LUNGS: Show diminished breath sounds at the base. ABDOMEN: Soft, nontender to palpation. No rebound or guarding. EXTREMITIES: Negative for clubbing, cyanosis. Trace edema. DERMATOLOGIC: No rashes. MUSCULOSKELETAL: No joint effusions. NEUROLOGIC: No significant change in exam, although somewhat limited as the patient is noncooperato ry. LABORATORY DATA: Shows sodium 131, potassium 5.3, chloride 98, BUN 40, creatinine 2.80, phosphorus 6.6, calcium 7.5. White count 19.4, hemoglobin 8.5, hematocrit 28.0, platelet count was 409. The p atient's ABG shows pH 7.27, pCO2 of 61. Urinalysis shows RBCs greater than 50, WBCs greater than 20 0. No eosinophils, +3 hemoglobin, +2 protein. A protein creatinine ratio approximately 3 grams per gram of creatinine. FENa approximately 1%. Renal ultrasound shows no hydronephrosis, bilateral hy perechoic kidneys, Stearns catheter otherwise in the bladder. ASSESSMENT AND PLAN: 1. Nonoliguric acute kidney injury with previously normal baseline creatinine of 0.53 mg/dL. Etiol ogy of acute kidney injury is likely secondary to acute tubular necrosis due to sepsis, hemodynamics , IAIN inhibitor effect, nephrotoxicity. The possibility of an acute glomerulonephritis, vasculitis or interstitial nephritis are less likely but a consideration, as the patient's urinalysis does cont inue to show pyuria of greater than 200 WBCs and proteinuria approximately 3 grams per gram of creat inine. Given these findings, a full serological evaluation will be performed. Will check serologie s, compliments. Renal ultrasound was reviewed, showed no evidence of obstruction. Plan would be to continue current treatment plan. Continue IV antibiotics, treat underlying sepsis. Would consider discontinuing vancomycin. Would continue IV hydration at this time. We will monitor volume statu s closely. Please note that the patient is in injury phase of acute tubular necrosis as renal funct ion continues to decline. There is no immediate need for renal replacement therapy at this time. W e will monitor closely. 2. Hyponatremia secondary to acute kidney injury causing decreased free water urinary excretion. W ill continue to monitor sodium levels. Continue to limit free water intake. 3. Hyperkalemia secondary to acute kidney injury. The patient's potassium levels have slowly been improving. Will continue to monitor. 4. Mineral bone disorder. Will continue to monitor calcium, phosphorus levels. No need for phosph ate binders. 5. Respiratory acidosis. The patient has a pH 7.27, pCO2 of 61. At this point, the patient is on BiPAP, will continue. 6. Acute encephalopathy. Etiology is unclear, likely multifactorial, toxic metabolic, sepsis, ques tionable uremic component. Would continue current treatment plan. Consider CT scan of the head to rule out cerebrovascular accident. Defer to primary team. 7. Anemia. Continue to monitor hemoglobin and hematocrit levels. 8. Sepsis secondary to pneumonia. 9. Lower extremity cellulitis. Continue current medical management. Continue antibiotic regimen. As discussed above, would consider holding vancomycin and changing to non-nephrotoxic Zyvox. Defer to ID. 10. Obesity. 11. Hypertension. Continue to monitor. Dictated By: BART ALBRIGHT/HO[place] Conf#: [id number] DID#: [id number]
[2017-01-17 08:50] LABS: AADO2 Arterial 51.1 mmHg (7.0-24.0); Allen Test ACCEPTAB; Arterial Base Excess 0.4 mmol/L (-3.0-3); Arterial COHb 0.4 % (0.0-3.0); Arterial Fraction of Oxyhgb 90.8 % (93.0-99.0); Arterial HCO3 28.3 mmol/L (22.0-26.0); Arterial MetHb 0.4 % (0.0-1.5); Arterial Total Hemglobin 9.5 g/dl (12.0-18.0); Blood Gas IEPAP 20/5; Blood Gas PS 15; MODE MASK - BIPAP
[2017-01-17] MEDS: ZYVOX 600 MG TAB PO SCH (09:00)
[2017-01-17] MEDS: ASPIRIN 81 MG TAB PO SCH (09:00)
[2017-01-17] MEDS: AMIODARONE 200 MG TAB PO SCH ×2 (09:00→21:00)
[2017-01-17] MEDS ORDERED: NALOXONE (0.4 MG/ML) INJ IV ONE ×2 (09:00)
[2017-01-17] MEDS ORDERED: DEXTROSE 50% 50 ML SYRINGE IV ONE (09:00)
[2017-01-17] MEDS: METOPROLOL 25 MG TAB PO SCH ×2 (09:00→21:00)
[2017-01-17] MEDS: DOCUSATE SODIUM 100 MG CAP PO SCH ×2 (09:30→19:30)
--- NOTE | 2017-01-17 09:44 | PN ---
Date/Time of Note Date/Time of Note DATE: 01/17/17 TIME: 09:43 Assessment/Plan Lines/Catheters IV Catheter Type (from Nrs): Peripheral IV Stearns in Place (from Nrsg): Yes Assessment/Plan Chief Complaint/Hosp Course IMPRESSION: 1. Status post coronary artery bypass grafting. 2. Left lung atelectasis, possible pneumonia. 3. Swelling of left lower extremity, possible cellulitis. 4 left leg wound clean 1 by 2 cm RECOMMENDATIONS: Will continue elevation of the left leg, local wound care, aspirin and antibiotics. Discussed with the patient. Problems: Subjective 24 Hr Interval Summary Constitutional: improved Pain Control: mild Exam/Review of Systems Vital Signs Vitals Vital Signs Date Time Temp Pulse Resp B/P Pulse Ox O2 Delivery O2 Flow Rate FiO2 01/17/17 09:24 74 01/17/17 08:54 18 100 Nasal Cannula 3.0 01/17/17 07:50 98.0 104/51 01/17/17 07:16 28 Intake and Output 01/16/17 01/16/17 01/17/17 15:00 23:00 07:00 Intake Total 100 ml 950 ml 780 ml Output Total 70 ml 400 ml Balance 30 ml 950 ml 380 ml Exam ENMT: mucosa pink and moist, nl external ears & nose, nl lips & teeth, nl nasal mucosa & septum Neck: non-tender, supple Respiratory: clear to auscultation, normal air movement Cardiovascular: nl pulses, regular rate and rhythm Gastrointestinal: nl liver, spleen, non-tender, soft Results Result Diagram: 01/17/17 0545 01/17/17 0545 RENETTA WATSON MD January 17, 2017 09:44
[2017-01-17] MEDS: MEROPENEM 500 MG/100 ML (PMX) 100 ML IVPB SCH ×2 (10:00→12:16)
[2017-01-17] MEDS: DEXTROSE 5%-0.45% NACL 1,000 ML IV SCH ×2 (10:14→22:16)
[2017-01-17] MEDS: ENOXAPARIN 30 MG/0.3 ML SYG SC SCH (10:16)
--- NOTE | 2017-01-17 10:59 | RADRPT ---
PROCEDURE: XR Chest. CLINICAL INDICATION: 66 year-old female with pulmonary congestion. TECHNIQUE: PA and Lateral views of the chest were obtained. COMPARISON: None. FINDINGS: The soft tissues are normal. There are osteophytes in the thoracic spine. A mediastinotomy was per formed. An NG tube and endotracheal tube previously identified were removed over the interval. The re are clips in the thoracic inlet adjacent to the trachea. The heart is enlarged. The cardiomedia stinal silhouette and hilar structures are normal. The pulmonary vasculature is equilibrated. There is a left-sided aorta. There is plate-like atelectasis in the left hilum with clips superior to the left hilum. The left diaphragm is obscured with consolidation in the lingula and left lower lobe. The right costophrenic angle is normal. The left costophrenic angle is obscured. IMPRESSION: 1. Cardiomegaly with mild pulmonary venous obstruction. 2. Consolidation in the left lower lobe and lingula which may be the result of infiltrate/atelectas is and/or a pleural effusion. 3. Status post median sternotomy for prior thoracic surgery. 4. Levo rotation of the patient. 5. Interval removal of an NG tube and endotracheal tube. 6. Clips at the thoracic inlet near the trachea possibly the result of earlier thyroidectomy. RPTAT:AAJJ Physician Deion Date Time Electronically viewed and signed by Physician Deion on 01/17/2017 10:58 JM/
[2017-01-17] MEDS: SOD CHLORIDE 0.9% 1,000 ML IV SCH (12:11)
--- NOTE | 2017-01-17 12:26 | CONS ---
Date/Time of Note Date/Time of Note DATE: 01/17/17 TIME: 12:25 Assessment/Plan Assessment/Plan Additional Assessment/Plan Sepsis Respiratory failure Cellulitis Multivessel coronary artery disease status post CABG Cardiomyopathy with ejection fraction 50% Paroxysmal atrial fibrillation Diabetes -Patient remains in sinus rhythm, blood pressure trend improved. Antibiotics as per infectious disease. Continue aspirin and statin therapy, continue beta- zacarias as heart rate and blood pressure permits. Consultation Date/Type/Reason Admit Date/Time January 13, 2017 at 14:21 Type of Consultation: cv 24 HR Interval Summary Free Text/Dictation Patient feeling better, denies chest pain, shortness of breath, dizziness Exam/Review of Systems Vital Signs Vitals Vital Signs Date Time Temp Pulse Resp B/P Pulse Ox O2 Delivery O2 Flow Rate FiO2 01/17/17 11:00 69 21 129/97 100 Nasal Cannula 2.0 01/17/17 09:20 98.1 01/17/17 07:16 28 Intake and Output 01/16/17 01/16/17 01/17/17 15:00 23:00 07:00 Intake Total 100 ml 950 ml 780 ml Output Total 70 ml 400 ml Balance 30 ml 950 ml 380 ml Exam Follows commands, no apparent distress Constitutional: alert, oriented Head: normocephalic Respiratory: other (Coarse breath sounds bilaterally, no wheezing) Cardiovascular: other (S1-S2 heard), regular rate and rhythm Gastrointestinal: bowel sounds, non-tender, soft Extremities: edema Results Result Diagram: 01/17/17 0545 01/17/17 0545 Results 24 hrs Laboratory Tests Test 01/16/17 13:14 01/16/17 17:22 01/16/17 21:47 01/17/17 01:38 Urine Random Creatinine 167.03 Urine Random Sodium 38 Urine Total Protein 347.0 H Bedside Glucose 160 133 127 Test 01/17/17 01:40 01/17/17 01:47 01/17/17 02:06 01/17/17 05:00 Blood Gas Specimen Source Blood arterial Blood arterial Arterial Blood Date Drawn 01/17/2017 1:40:15 AM 01/17/2017 5:00:05 AM Arterial Blood pH (Temp corrected) 7.280 *L 7.272 *L Arterial Blood pCO2 (Temp correct) 55.2 H 57.3 H Arterial Blood pO2 (Temp corrected) 78.7 L 71.9 L Arterial Blood HCO3 25.4 25.8 Arterial Blood Base Excess -1.8 -1.5 Arterial Blood Oxygen Saturation 93.9 L 92.3 L Amor Test ACCEPTAB ACCEPTAB Arterial Blood Gas Puncture Site Right Radial Right Radial Arterial Blood Carboxyhemoglobin 0 0.2 Arterial Blood Methemoglobin 0.5 0.5 Blood Gas A-a O2 Differential 55.8 H 74.7 H Oxyhemoglobin Percent 93.4 91.7 L Total Hemoglobin 9.9 L 9.5 L Blood Gas Temperature 37.0 37.0 Blood Gas Modality NASAL CANNULA MASK - BIPAP FiO2 28.0 30.0 Blood Gas Critical Value Read Back TMAGPALI Olivia VIZCAINO MD Blood Gas Notified Whom GURDEEP ARSHAD Blood Gas Notified Time 01/17/2017 1:51:48 AM 01/17/2017 5:06:46 AM Urine Color YELLOW Urine Clarity TURBID Urine pH 5.0 Urine Specific [place] >=1.030 H Urine Ketones NEGATIVE Urine Nitrite NEGATIVE Urine Bilirubin 1+ H Urine Ictotest NEGATIVE Urine Urobilinogen 1.0 E.U./dL Urine Leukocyte Esterase 2+ H Urine Microscopic RBC >50 Urine Microscopic WBC >200 Urine Amorphous Urates FEW Urine Bacteria MANY Urine Yeast FEW Urine Eosinophils % 0.0 Urine Hemoglobin 3+ H Urine Glucose NEGATIVE Urine Total Protein 2+ H White Blood Count 20.9 H Red Blood Count 2.97 L Hemoglobin 8.6 L Hematocrit 27.4 L Mean Corpuscular Volume 92.3 Mean Corpuscular Hemoglobin 29.0 Mean Corpuscular Hemoglobin Concent 31.4 L Red Cell Distribution Width 15.4 H Platelet Count 441 H Mean Platelet Volume 9.5 Neutrophils % 84.5 H Lymphocytes % 6.4 L Monocytes % 7.4 Eosinophils % 0.3 Basophils % 0.2 Nucleated Red Blood Cells % 0.0 Neutrophils # 17.7 H Lymphocytes # 1.3 Monocytes # 1.6 H Eosinophils # 0.1 Basophils # 0.1 Nucleated Red Blood Cells # 0.0 Sodium Level 134 L Potassium Level 5.6 H Chloride Level 95 L Carbon Dioxide Level 28 Anion Gap 17 #H Blood Urea Nitrogen 41 #H Creatinine 2.71 H Glucose Level 106 # Lactic Acid Level 0.9 Calcium Level 7.6 L Total Bilirubin 0.1 L Direct Bilirubin 0.00 Indirect Bilirubin 0.1 Aspartate Amino Transf (AST/SGOT) 35 Alanine Aminotransferase (ALT/SGPT) 49 Alkaline Phosphatase 113 Total Protein 4.9 L Albumin 2.4 L Globulin 2.50 Albumin/Globulin Ratio 0.96 Blood Gas Respiration Rate 16.0 Blood Gas Actual Respiration Rate 20 Blood Gas IPAP/EPAP Ratio 15/5 Test 01/17/17 05:45 01/17/17 06:00 01/17/17 07:39 01/17/17 08:15 White Blood Count 19.4 H Red Blood Count 2.97 L Hemoglobin 8.5 L Hematocrit 28.0 L Mean Corpuscular Volume 94.3 Mean Corpuscular Hemoglobin 28.6 L Mean Corpuscular Hemoglobin Concent 30.4 L Red Cell Distribution Width 15.5 H Platelet Count 409 Mean Platelet Volume 9.7 Neutrophils % 80.6 H Lymphocytes % 8.7 L Monocytes % 8.8 Eosinophils % 0.4 Basophils % 0.3 Nucleated Red Blood Cells % 0.0 Neutrophils # 15.6 H Lymphocytes # 1.7 Monocytes # 1.7 H Eosinophils # 0.1 Basophils # 0.1 Nucleated Red Blood Cells # 0.0 Sodium Level 131 L Potassium Level 5.3 H Chloride Level 98 Carbon Dioxide Level 26 Anion Gap 12 Blood Urea Nitrogen 40 H Creatinine 2.80 H Glucose Level 81 Calcium Level 7.5 L Phosphorus Level 6.6 H Magnesium Level 2.0 Random Vancomycin Level 21.9 Blood Gas Specimen Source Blood arterial Blood arterial Arterial Blood Date Drawn 01/17/2017 6:30:01 AM 01/17/2017 8:40:51 AM Arterial Blood pH (Temp corrected) 7.276 *L 7.255 *L Arterial Blood pCO2 (Temp correct) 61.8 H 65.3 H Arterial Blood pO2 (Temp corrected) 108.5 H 71.5 L Arterial Blood HCO3 28.1 H 28.3 H Arterial Blood Base Excess 0.6 0.4 Arterial Blood Oxygen Saturation 97.5 91.5 L Amor Test ACCEPTAB ACCEPTAB Arterial Blood Gas Puncture Site Left Radial Right Radial Arterial Blood Carboxyhemoglobin 0.3 0.4 Arterial Blood Methemoglobin 0.6 0.4 Blood Gas A-a O2 Differential 542.7 H 51.1 H Oxyhemoglobin Percent 96.6 90.8 L Total Hemoglobin 9.6 L 9.5 L Blood Gas Temperature 37.0 37.0 Blood Gas Respiration Rate 20.0 24.0 Blood Gas Actual Respiration Rate 21 27 Blood Gas Modality MASK - BIPAP MASK - BIPAP FiO2 100.0 28.0 Blood Gas IPAP/EPAP Ratio 02/07 30/01 Blood Gas Critical Value Read Back MD Aliyah TANNER RN Blood Gas Notified Whom GURDEEP DT Blood Gas Notified Time 01/17/2017 6:45:45 AM 01/17/2017 8:46:41 AM Bedside Glucose 89 Blood Gas Pressure Support 15 Test 01/17/17 10:35 Bedside Glucose 102 Medications Medications Current Medications Aspirin (Aspirin) 81 mg DAILY PO Last administered on 01/16/17 09:08; Admin Dose 81 MG; Start 01/14/17 at 09:00 Atorvastatin Calcium (Lipitor) 40 mg HS PO Last administered on 01/16/17 21:47 ; Admin Dose 40 MG; Start 01/13/17 at 21:00 Metoprolol Tartrate (Lopressor) 25 mg BID PO Last administered on 01/16/17 21: 48; Admin Dose 25 MG; Start 01/13/17 at 21:00 Amiodarone HCl (Cordarone) 200 mg BID PO Last administered on 01/16/17 21:48; Admin Dose 200 MG; Start 01/13/17 at 21:00 Docusate Sodium (Colace) 100 mg Q12H PO Last administered on 01/16/17 21:48; Admin Dose 100 MG; Start 01/13/17 at 19:30 Duloxetine HCl (Cymbalta) 20 mg DAILY PO Last administered on 01/16/17 09:09; Admin Dose 20 MG; Start 01/14/17 at 09:00; Status Future Hold Lisinopril (Zestril) 2.5 mg DAILY NGT Last administered on 01/15/17 09:00; Admin Dose 2.5 MG; Start 01/14/17 at 09:00; Status Future Hold Al Hydrox/Mg Hydrox/Simethicone (Mag-Al Plus) 30 ml Q4H PRN PO GASTROINTESTINAL UPSET; Start 01/13/17 at 19:30 Montelukast Sodium (Singulair) 10 mg HS NGT Last administered on 01/16/17 21:48 ; Admin Dose 10 MG; Start 01/13/17 at 21:00 Nitroglycerin (Nitroglycerin (Sl Tab) 0.4 Mg) 1 tab Q5M PRN SL CHEST PAIN; Start 01/13/17 at 19:30 Oxycodone/ Acetaminophen (Percocet (5/ 325)) 1 tab Q4 PRN PO SEVERE PAIN LEVEL 7-10 Last administered on 01/15/17 08:59; Admin Dose 1 TAB; Start 01/13/17 at 19: 30; Status Future Hold Diagnostic Test (Pha) (Accu-Chek) 1 ea 02 XX Last administered on 01/17/17 02: 02; Admin Dose 1 EA; Start 01/14/17 at 02:00 Miscellaneous Information 1 ea NOTE XX ; Start 01/13/17 at 20:00 Glucose (Glutose) 15 gm Q15M PRN PO DECREASED GLUCOSE; Start 01/13/17 at 20:00 Glucose (Glutose) 22.5 gm Q15M PRN PO DECREASED GLUCOSE; Start 01/13/17 at 20:00 Dextrose (D50w Syringe) 25 ml Q15M PRN IV DECREASED GLUCOSE; Start 01/13/17 at 20:00 Dextrose (D50w Syringe) 50 ml Q15M PRN IV DECREASED GLUCOSE; Start 01/13/17 at 20:00 Glucagon (Glucagen) 1 mg Q15M PRN IM DECREASED GLUCOSE; Start 01/13/17 at 20:00 Glucose (Glutose) 15 gm Q15M PRN BUCCAL DECREASED GLUCOSE; Start 01/13/17 at 20: 00 Miscellaneous Information (Pending [facility] Order For Wound Care) This patient panda... PRN PRN XX WOUND CARE; Start 01/14/17 at 11:00 Pantoprazole (Protonix Tab) 40 mg DAILY@06 PO Last administered on 01/16/17 05: 10; Admin Dose 40 MG; Start 01/15/17 at 06:00 Insulin Detemir (Levemir) 28 unit DAILY@20 SC Last administered on 01/16/17 21: 56; Admin Dose 28 UNIT; Start 01/15/17 at 20:00; Status Future Hold Enoxaparin Sodium 30 mg 30 mg DAILY SC Last administered on 01/17/17 10:16; Admin Dose 30 MG; Start 01/17/17 at 09:00 Meropenem (Merrem 500 Mg/ 100 ml (Pmx)) 100 ml @ 200 mls/hr Q12 IVPB Last administered on 01/17/17 12:16; Admin Dose 200 MLS/HR; Start 01/16/17 at 21:00 Linezolid 600 mg 600 mg BID PO Last administered on 01/16/17 21:47; Admin Dose 600 MG; Start 01/16/17 at 21:00 Dextrose/Sodium Chloride (D5-1/2ns) 1,000 ml @ 75 mls/hr [id number] IV Last administered on 01/17/17 10:14; Admin Dose 75 MLS/HR; Start 01/17/17 at 09:00 Manuel Escudero DO January 17, 2017 12:26
[2017-01-17 12:55] LABS: AADO2 Arterial 54.7 mmHg (7.0-24.0); Allen Test ACCEPTAB; Arterial COHb 0.3 % (0.0-3.0); Arterial Fraction of Oxyhgb 94.8 % (93.0-99.0); Arterial HCO3 28.4 mmol/L (22.0-26.0); Arterial MetHb 0.5 % (0.0-1.5); Arterial Total Hemglobin 9.5 g/dl (12.0-18.0); MODE NASAL CANNULA
[2017-01-17] MEDS ORDERED: HYPOGLYCEMIA PROTOCOL when Glucose is <70 mg/dL or symptomatic <90 mg/dL. XX ONE ×2 (13:00)
[2017-01-17] MEDS ORDERED: Discontinue Glyburide, Glipizide, and/or Glimepiride prior to starting Insulin XX ONE ×2 (13:00)
[2017-01-17] MEDS ORDERED: LEVETIRACETAM 1000 MG (PMX) 100 ML IVPB ONE (13:00)
--- NOTE | 2017-01-17 14:17 | CONS ---
DATE OF ADMISSION: 01/13/2017 DATE OF CONSULTATION: TYPE OF CONSULTATION: Pulmonary. REASON FOR CONSULTATION: Shortness of breath. Thank you, Dr. Mendoza for this consultation. HISTORY OF PRESENT ILLNESS: This is a 66-year-old lady seen by myself in the past, presented to [facility] on 01/13/2017 with left lower extremity pain and shortness of breath. Fou nd to have probable cellulitis. Yesterday the patient became more altered requiring emergent transf er to the intensive care unit. Here she is largely somnolent and has evidence of hypercapnia on art erial blood gas. Few further details are available. PAST MEDICAL HISTORY: Recent coronary artery bypass graft surgery, hypertension, hyperlipidemia, di abetes, diabetic neuropathy. history of depression, chronic pain syndrome. MEDICATIONS: Per chart. ALLERGIES: NONE. SOCIAL HISTORY: Ex-smoker, no alcohol, no history of drug use. FAMILY HISTORY: Noncontributory. SYSTEMS REVIEW: A 14-point review of systems currently unable to perform. PHYSICAL EXAMINATION: GENERAL: Chronically ill appearing lady, somnolent on nasal cannula O2. VITAL SIGNS: Currently afebrile. Temperature 98, pulse 66, blood pressure 101/60, O2 saturation 96 %, FIO2 of 3 liters. NECK: Supple. No JVD or lymphadenopathy. CARDIAC: S1, S2, no added sounds or murmurs. CHEST: Diminished air entry bilaterally. ABDOMEN: Soft, nontender. No guarding or rebound. EXTREMITIES: No cyanosis, clubbing, edema. NEUROLOGIC: Generalized weakness. LABORATORIES: White count 19.4, hemoglobin 8.5, platelets 409. BUN 40, creatinine 2.8. ABG: pH 7 .28, pCO2 of 61, pO2 of 87. INR was 1. Urinalysis consistent with UTI. DIAGNOSTIC DATA: Chest x-ray was reviewed, shows cardiomegaly with congestive cardiac failure, left lower lobe infiltrate. IMPRESSION AND PLAN: 1. Hypercapnic respiratory failure, likely secondary to encephalopathy probably from infection. 2. Acute urinary tract infection. 3. Recent coronary artery bypass graft surgery. 4. History of coronary artery disease. 5. History of diabetes mellitus. 6. Left lower lobe pneumonia. Patient will require: 1. Antibiotics, currently on Zyvox. 2. Continue supplemental O2. 3. Noninvasive positive pressure ventilation. 4. Pulmonary toilet. 5. DVT and GI prophylaxis. Overall prognosis remains guarded if hypercapnic continues to worsen despite noninvasive positive pr essure ventilation, she will require intubation and mechanical ventilation. Dictated By: JEFE ROTHMAN/[place] Conf#: [id number] DID#: [id number]
--- NOTE | 2017-01-17 15:49 | CONS ---
Date/Time of Note Date/Time of Note DATE: 01/17/17 TIME: 15:46 Assessment/Plan Assessment/Plan Chief Complaint/Hosp Course SUBJECTIVE: Tx to ICU 2 to LOTUS, on Bipap, awake, follows commands, aphasic per RN MICROBIOLOGY: Left lower extremity wound culture grew MRSA/Enterococcus. ANTIMICROBIALS: 1. Zyvox. 2. Merrem. PHYSICAL EXAMINATION: GENERAL: This is a morbidly obese, well-developed, elderly woman who is in no distress. HEENT: Head atraumatic, normocephalic. Sclerae are anicteric. Buccal mucosa dry. NECK: Supple, trachea midline. CHEST: Rise symmetrical. Breath sounds clear, diminished to bases. HEART: S1, S2. ABDOMEN: Soft. Bowel tones present. EXTREMITIES: Without cyanosis. ASSESSMENT: 1. Sepsis with fevers and leukocytosis. 2. Left lower extremity methicillin-resistant Staphylococcus aureus infected wound. 3. Healthcare-associated pneumonia ?aspiration. 4. Acute renal failure. 5. Obesity. 6. Diabetes with diabetic neuropathy. 7. Acute encephalopathy 8. Respiratory failure PLAN: Continue abx, f/u nephrology/pulmonary rec-s, consider head CT, pending neuro eval. ANTONETTE RN Problems: Consultation Date/Type/Reason Admit Date/Time January 13, 2017 at 14:21 Initial Consult Date Type of Consultation: ID Exam/Review of Systems Vital Signs Vitals Vital Signs Date Time Temp Pulse Resp B/P Pulse Ox O2 Delivery O2 Flow Rate FiO2 01/17/17 15:00 64 12 104/57 100 BIPAP 01/17/17 13:00 2.0 01/17/17 12:00 98.9 01/17/17 07:16 28 Intake and Output 01/16/17 01/16/17 01/17/17 15:00 23:00 07:00 Intake Total 100 ml 950 ml 780 ml Output Total 70 ml 400 ml Balance 30 ml 950 ml 380 ml Results Result Diagram: 01/17/17 0545 01/17/17 0545 Results 24 hrs Laboratory Tests Test 01/16/17 17:22 01/16/17 21:47 01/17/17 01:38 01/17/17 01:40 Bedside Glucose 160 133 127 Blood Gas Specimen Source Blood arterial Arterial Blood Date Drawn 01/17/2017 1:40:15 AM Arterial Blood pH (Temp corrected) 7.280 *L Arterial Blood pCO2 (Temp correct) 55.2 H Arterial Blood pO2 (Temp corrected) 78.7 L Arterial Blood HCO3 25.4 Arterial Blood Base Excess -1.8 Arterial Blood Oxygen Saturation 93.9 L Amor Test ACCEPTAB Arterial Blood Gas Puncture Site Right Radial Arterial Blood Carboxyhemoglobin 0 Arterial Blood Methemoglobin 0.5 Blood Gas A-a O2 Differential 55.8 H Oxyhemoglobin Percent 93.4 Total Hemoglobin 9.9 L Blood Gas Temperature 37.0 Blood Gas Modality NASAL CANNULA FiO2 28.0 Blood Gas Critical Value Read Back TMAGPALI RN Blood Gas Notified Whom MA Blood Gas Notified Time 01/17/2017 1:51:48 AM Test 01/17/17 01:47 01/17/17 02:06 01/17/17 05:00 01/17/17 05:45 Urine Color YELLOW Urine Clarity TURBID Urine pH 5.0 Urine Specific [place] >=1.030 H Urine Ketones NEGATIVE Urine Nitrite NEGATIVE Urine Bilirubin 1+ H Urine Ictotest NEGATIVE Urine Urobilinogen 1.0 E.U./dL Urine Leukocyte Esterase 2+ H Urine Microscopic RBC >50 Urine Microscopic WBC >200 Urine Amorphous Urates FEW Urine Bacteria MANY Urine Yeast FEW Urine Eosinophils % 0.0 Urine Hemoglobin 3+ H Urine Glucose NEGATIVE Urine Total Protein 2+ H White Blood Count 20.9 H 19.4 H Red Blood Count 2.97 L 2.97 L Hemoglobin 8.6 L 8.5 L Hematocrit 27.4 L 28.0 L Mean Corpuscular Volume 92.3 94.3 Mean Corpuscular Hemoglobin 29.0 28.6 L Mean Corpuscular Hemoglobin Concent 31.4 L 30.4 L Red Cell Distribution Width 15.4 H 15.5 H Platelet Count 441 H 409 Mean Platelet Volume 9.5 9.7 Neutrophils % 84.5 H 80.6 H Lymphocytes % 6.4 L 8.7 L Monocytes % 7.4 8.8 Eosinophils % 0.3 0.4 Basophils % 0.2 0.3 Nucleated Red Blood Cells % 0.0 0.0 Neutrophils # 17.7 H 15.6 H Lymphocytes # 1.3 1.7 Monocytes # 1.6 H 1.7 H Eosinophils # 0.1 0.1 Basophils # 0.1 0.1 Nucleated Red Blood Cells # 0.0 0.0 Sodium Level 134 L 131 L Potassium Level 5.6 H 5.3 H Chloride Level 95 L 98 Carbon Dioxide Level 28 26 Anion Gap 17 #H 12 Blood Urea Nitrogen 41 #H 40 H Creatinine 2.71 H 2.80 H Glucose Level 106 # 81 Lactic Acid Level 0.9 Calcium Level 7.6 L 7.5 L Total Bilirubin 0.1 L Direct Bilirubin 0.00 Indirect Bilirubin 0.1 Aspartate Amino Transf (AST/SGOT) 35 Alanine Aminotransferase (ALT/SGPT) 49 Alkaline Phosphatase 113 Total Protein 4.9 L Albumin 2.4 L Globulin 2.50 Albumin/Globulin Ratio 0.96 Blood Gas Specimen Source Blood arterial Arterial Blood Date Drawn 01/17/2017 5:00:05 AM Arterial Blood pH (Temp corrected) 7.272 *L Arterial Blood pCO2 (Temp correct) 57.3 H Arterial Blood pO2 (Temp corrected) 71.9 L Arterial Blood HCO3 25.8 Arterial Blood Base Excess -1.5 Arterial Blood Oxygen Saturation 92.3 L Amor Test ACCEPTAB Arterial Blood Gas Puncture Site Right Radial Arterial Blood Carboxyhemoglobin 0.2 Arterial Blood Methemoglobin 0.5 Blood Gas A-a O2 Differential 74.7 H Oxyhemoglobin Percent 91.7 L Total Hemoglobin 9.5 L Blood Gas Temperature 37.0 Blood Gas Respiration Rate 16.0 Blood Gas Actual Respiration Rate 20 Blood Gas Modality MASK - BIPAP FiO2 30.0 Blood Gas IPAP/EPAP Ratio 15/5 Blood Gas Critical Value Read Back Olivia TANNER MD Blood Gas Notified Whom MM Blood Gas Notified Time 01/17/2017 5:06:46 AM Phosphorus Level 6.6 H Magnesium Level 2.0 Random Vancomycin Level 21.9 Test 01/17/17 06:00 01/17/17 07:39 01/17/17 08:15 01/17/17 10:35 Blood Gas Specimen Source Blood arterial Blood arterial Arterial Blood Date Drawn 01/17/2017 6:30:01 AM 01/17/2017 8:40:51 AM Arterial Blood pH (Temp corrected) 7.276 *L 7.255 *L Arterial Blood pCO2 (Temp correct) 61.8 H 65.3 H Arterial Blood pO2 (Temp corrected) 108.5 H 71.5 L Arterial Blood HCO3 28.1 H 28.3 H Arterial Blood Base Excess 0.6 0.4 Arterial Blood Oxygen Saturation 97.5 91.5 L Amor Test ACCEPTAB ACCEPTAB Arterial Blood Gas Puncture Site Left Radial Right Radial Arterial Blood Carboxyhemoglobin 0.3 0.4 Arterial Blood Methemoglobin 0.6 0.4 Blood Gas A-a O2 Differential 542.7 H 51.1 H Oxyhemoglobin Percent 96.6 90.8 L Total Hemoglobin 9.6 L 9.5 L Blood Gas Temperature 37.0 37.0 Blood Gas Respiration Rate 20.0 24.0 Blood Gas Actual Respiration Rate 21 27 Blood Gas Modality MASK - BIPAP MASK - BIPAP FiO2 100.0 28.0 Blood Gas IPAP/EPAP Ratio 02/07 30/01 Blood Gas Critical Value Read Back MD Aliyah TANNER RN Blood Gas Notified Whom GURDEEP SAUER Blood Gas Notified Time 01/17/2017 6:45:45 AM 01/17/2017 8:46:41 AM Bedside Glucose 89 102 Blood Gas Pressure Support 15 Test 01/17/17 12:42 01/17/17 13:46 Blood Gas Specimen Source Blood arterial Arterial Blood Date Drawn 01/17/2017 12:46:34 PM Arterial Blood pH (Temp corrected) 7.284 *L Arterial Blood pCO2 (Temp correct) 61.2 H Arterial Blood pO2 (Temp corrected) 87.3 Arterial Blood HCO3 28.4 H Arterial Blood Base Excess 1.0 Arterial Blood Oxygen Saturation 95.6 Amor Test ACCEPTAB Arterial Blood Gas Puncture Site Left Radial Arterial Blood Carboxyhemoglobin 0.3 Arterial Blood Methemoglobin 0.5 Blood Gas A-a O2 Differential 54.7 H Oxyhemoglobin Percent 94.8 Total Hemoglobin 9.5 L Blood Gas Temperature 37.0 Blood Gas Modality NASAL CANNULA FiO2 30.0 Blood Gas Critical Value Read Back MONIQUE Blood Gas Notified Whom Denny Blood Gas Notified Time 01/17/2017 12:55:25 PM Bedside Glucose 117 Medications Medications Current Medications Aspirin (Aspirin) 81 mg DAILY PO Last administered on 01/16/17 09:08; Admin Dose 81 MG; Start 01/14/17 at 09:00 Atorvastatin Calcium (Lipitor) 40 mg HS PO Last administered on 01/16/17 21:47 ; Admin Dose 40 MG; Start 01/13/17 at 21:00 Metoprolol Tartrate (Lopressor) 25 mg BID PO Last administered on 01/16/17 21: 48; Admin Dose 25 MG; Start 01/13/17 at 21:00 Amiodarone HCl (Cordarone) 200 mg BID PO Last administered on 01/16/17 21:48; Admin Dose 200 MG; Start 01/13/17 at 21:00 Docusate Sodium (Colace) 100 mg Q12H PO Last administered on 01/16/17 21:48; Admin Dose 100 MG; Start 01/13/17 at 19:30 Duloxetine HCl (Cymbalta) 20 mg DAILY PO Last administered on 01/16/17 09:09; Admin Dose 20 MG; Start 01/14/17 at 09:00; Status Future Hold Lisinopril (Zestril) 2.5 mg DAILY NGT Last administered on 01/15/17 09:00; Admin Dose 2.5 MG; Start 01/14/17 at 09:00; Status Future Hold Al Hydrox/Mg Hydrox/Simethicone (Mag-Al Plus) 30 ml Q4H PRN PO GASTROINTESTINAL UPSET; Start 01/13/17 at 19:30 Montelukast Sodium (Singulair) 10 mg HS NGT Last administered on 01/16/17 21:48 ; Admin Dose 10 MG; Start 01/13/17 at 21:00 Nitroglycerin (Nitroglycerin (Sl Tab) 0.4 Mg) 1 tab Q5M PRN SL CHEST PAIN; Start 01/13/17 at 19:30 Oxycodone/ Acetaminophen (Percocet (5/ 325)) 1 tab Q4 PRN PO SEVERE PAIN LEVEL 7-10 Last administered on 01/15/17 08:59; Admin Dose 1 TAB; Start 01/13/17 at 19: 30; Status Future Hold Miscellaneous Information 1 ea NOTE XX ; Start 01/13/17 at 20:00 Glucose (Glutose) 15 gm Q15M PRN PO DECREASED GLUCOSE; Start 01/13/17 at 20:00 Glucose (Glutose) 22.5 gm Q15M PRN PO DECREASED GLUCOSE; Start 01/13/17 at 20:00 Dextrose (D50w Syringe) 25 ml Q15M PRN IV DECREASED GLUCOSE; Start 01/13/17 at 20:00 Dextrose (D50w Syringe) 50 ml Q15M PRN IV DECREASED GLUCOSE; Start 01/13/17 at 20:00 Glucagon (Glucagen) 1 mg Q15M PRN IM DECREASED GLUCOSE; Start 01/13/17 at 20:00 Glucose (Glutose) 15 gm Q15M PRN BUCCAL DECREASED GLUCOSE; Start 01/13/17 at 20: 00 Miscellaneous Information (Pending Santyl Order For Wound Care) This patient panad... PRN PRN XX WOUND CARE; Start 01/14/17 at 11:00 Pantoprazole (Protonix Tab) 40 mg DAILY@06 PO Last administered on 01/16/17 05: 10; Admin Dose 40 MG; Start 01/15/17 at 06:00 Insulin Detemir (Levemir) 28 unit DAILY@20 SC Last administered on 01/16/17 21: 56; Admin Dose 28 UNIT; Start 01/15/17 at 20:00; Status Future Hold Enoxaparin Sodium 30 mg 30 mg DAILY SC Last administered on 01/17/17 10:16; Admin Dose 30 MG; Start 01/17/17 at 09:00 Meropenem (Merrem 500 Mg/ 100 ml (Pmx)) 100 ml @ 200 mls/hr Q12 IVPB Last administered on 01/17/17 12:16; Admin Dose 200 MLS/HR; Start 01/16/17 at 21:00 Linezolid 600 mg 600 mg BID PO Last administered on 01/16/17 21:47; Admin Dose 600 MG; Start 01/16/17 at 21:00 Dextrose/Sodium Chloride (D5-1/2ns) 1,000 ml @ 75 mls/hr [id number] IV Last administered on 01/17/17 10:14; Admin Dose 75 MLS/HR; Start 01/17/17 at 09:00 Insulin Aspart (Novolog Insulin Pen) NOVOLOG *MODERATE* ALGORI... Q4 SC ; Start 01/17/17 at 13:00 WESLEY LIRIANO NP January 17, 2017 15:49
[2017-01-17 16:09] LABS: AADO2 Arterial 53.6 mmHg (7.0-24.0); Allen Test ACCEPTAB; Arterial Base Excess 1.4 mmol/L (-3.0-3); Arterial COHb 0.3 % (0.0-3.0); Arterial Fraction of Oxyhgb 94.6 % (93.0-99.0); Arterial HCO3 28.7 mmol/L (22.0-26.0); Arterial MetHb 0.4 % (0.0-1.5); Arterial Total Hemglobin 9.3 g/dl (12.0-18.0); Blood Gas IEPAP 18/8; MODE MASK - BIPAP
--- NOTE | 2017-01-17 17:53 | EN ---
Date/Time of Note Date/Time of Note DATE: 01/17/17 TIME: 17:53 Event Note Medicine Medicine Event Note Vital Signs Vitals Vital Signs Date Time Temp Pulse Resp B/P Pulse Ox O2 Delivery O2 Flow Rate FiO2 01/17/17 11:00 69 21 129/97 100 Nasal Cannula 2.0 01/17/17 09:20 98.1 01/17/17 07:16 28 Intake and Output 01/16/17 01/16/17 01/17/17 15:00 23:00 07:00 Intake Total 100 ml 950 ml 780 ml Output Total 70 ml 400 ml Balance 30 ml 950 ml 380 ml Exam Follows commands, no apparent distress Constitutional: alert, oriented Head: normocephalic Respiratory: other (Coarse breath sounds bilaterally, no wheezing) Cardiovascular: other (S1-S2 heard), regular rate and rhythm Gastrointestinal: bowel sounds, non-tender, soft Extremities: edema Results Result Diagram: 01/17/17 0545 01/17/17 0545 Results 24 hrs Laboratory Tests Test 01/16/17 13:14 01/16/17 17:22 01/16/17 21:47 01/17/17 01:38 Urine Random Creatinine 167.03 Urine Random Sodium 38 Urine Total Protein 347.0 H Bedside Glucose 160 133 127 Test 01/17/17 01:40 01/17/17 01:47 01/17/17 02:06 01/17/17 05:00 Blood Gas Specimen Source Blood arterial Blood arterial Arterial Blood Date Drawn 01/17/2017 1:40:15 AM 01/17/2017 5:00:05 AM Arterial Blood pH (Temp corrected) 7.280 *L 7.272 *L Arterial Blood pCO2 (Temp correct) 55.2 H 57.3 H Arterial Blood pO2 (Temp corrected) 78.7 L 71.9 L Arterial Blood HCO3 25.4 25.8 Arterial Blood Base Excess -1.8 -1.5 Arterial Blood Oxygen Saturation 93.9 L 92.3 L Amor Test ACCEPTAB ACCEPTAB Arterial Blood Gas Puncture Site Right Radial Right Radial Arterial Blood Carboxyhemoglobin 0 0.2 Arterial Blood Methemoglobin 0.5 0.5 Blood Gas A-a O2 Differential 55.8 H 74.7 H Oxyhemoglobin Percent 93.4 91.7 L Total Hemoglobin 9.9 L 9.5 L Blood Gas Temperature 37.0 37.0 Blood Gas Modality NASAL CANNULA MASK - BIPAP FiO2 28.0 30.0 Blood Gas Critical Value Read Back TMAGPALI Olivia VIZCAINO MD Blood Gas Notified Whom GURDEEP ARSHAD Blood Gas Notified Time 01/17/2017 1:51:48 AM 01/17/2017 5:06:46 AM Urine Color YELLOW Urine Clarity TURBID Urine pH 5.0 Urine Specific [place] >=1.030 H Urine Ketones NEGATIVE Urine Nitrite NEGATIVE Urine Bilirubin 1+ H Urine Ictotest NEGATIVE Urine Urobilinogen 1.0 E.U./dL Urine Leukocyte Esterase 2+ H Urine Microscopic RBC >50 Urine Microscopic WBC >200 Urine Amorphous Urates FEW Urine Bacteria MANY Urine Yeast FEW Urine Eosinophils % 0.0 Urine Hemoglobin 3+ H Urine Glucose NEGATIVE Urine Total Protein 2+ H White Blood Count 20.9 H Red Blood Count 2.97 L Hemoglobin 8.6 L Hematocrit 27.4 L Mean Corpuscular Volume 92.3 Mean Corpuscular Hemoglobin 29.0 Mean Corpuscular Hemoglobin Concent 31.4 L Red Cell Distribution Width 15.4 H Platelet Count 441 H Mean Platelet Volume 9.5 Neutrophils % 84.5 H Lymphocytes % 6.4 L Monocytes % 7.4 Eosinophils % 0.3 Basophils % 0.2 Nucleated Red Blood Cells % 0.0 Neutrophils # 17.7 H Lymphocytes # 1.3 Monocytes # 1.6 H Eosinophils # 0.1 Basophils # 0.1 Nucleated Red Blood Cells # 0.0 Sodium Level 134 L Potassium Level 5.6 H Chloride Level 95 L Carbon Dioxide Level 28 Anion Gap 17 #H Blood Urea Nitrogen 41 #H Creatinine 2.71 H Glucose Level 106 # Lactic Acid Level 0.9 Calcium Level 7.6 L Total Bilirubin 0.1 L Direct Bilirubin 0.00 Indirect Bilirubin 0.1 Aspartate Amino Transf (AST/SGOT) 35 Alanine Aminotransferase (ALT/SGPT) 49 Alkaline Phosphatase 113 Total Protein 4.9 L Albumin 2.4 L Globulin 2.50 Albumin/Globulin Ratio 0.96 Blood Gas Respiration Rate 16.0 Blood Gas Actual Respiration Rate 20 Blood Gas IPAP/EPAP Ratio 15/ Test 01/17/17 05:45 01/17/17 06:00 01/17/17 07:39 01/17/17 08:15 White Blood Count 19.4 H Red Blood Count 2.97 L Hemoglobin 8.5 L Hematocrit 28.0 L Mean Corpuscular Volume 94.3 Mean Corpuscular Hemoglobin 28.6 L Mean Corpuscular Hemoglobin Concent 30.4 L Red Cell Distribution Width 15.5 H Platelet Count 409 Mean Platelet Volume 9.7 Neutrophils % 80.6 H Lymphocytes % 8.7 L Monocytes % 8.8 Eosinophils % 0.4 Basophils % 0.3 Nucleated Red Blood Cells % 0.0 Neutrophils # 15.6 H Lymphocytes # 1.7 Monocytes # 1.7 H Eosinophils # 0.1 Basophils # 0.1 Nucleated Red Blood Cells # 0.0 Sodium Level 131 L Potassium Level 5.3 H Chloride Level 98 Carbon Dioxide Level 26 Anion Gap 12 Blood Urea Nitrogen 40 H Creatinine 2.80 H Glucose Level 81 Calcium Level 7.5 L Phosphorus Level 6.6 H Magnesium Level 2.0 Random Vancomycin Level 21.9 Blood Gas Specimen Source Blood arterial Blood arterial Arterial Blood Date Drawn 01/17/2017 6:30:01 AM 01/17/2017 8:40:51 AM Arterial Blood pH (Temp corrected) 7.276 *L 7.255 *L Arterial Blood pCO2 (Temp correct) 61.8 H 65.3 H Arterial Blood pO2 (Temp corrected) 108.5 H 71.5 L Arterial Blood HCO3 28.1 H 28.3 H Arterial Blood Base Excess 0.6 0.4 Arterial Blood Oxygen Saturation 97.5 91.5 L Amor Test ACCEPTAB ACCEPTAB Arterial Blood Gas Puncture Site Left Radial Right Radial Arterial Blood Carboxyhemoglobin 0.3 0.4 Arterial Blood Methemoglobin 0.6 0.4 Blood Gas A-a O2 Differential 542.7 H 51.1 H Oxyhemoglobin Percent 96.6 90.8 L Total Hemoglobin 9.6 L 9.5 L Blood Gas Temperature 37.0 37.0 Blood Gas Respiration Rate 20.0 24.0 Blood Gas Actual Respiration Rate 21 27 Blood Gas Modality MASK - BIPAP MASK - BIPAP FiO2 100.0 28.0 Blood Gas IPAP/EPAP Ratio 02/07 30/01 Blood Gas Critical Value Read Back MD Aliyah TANNER RN Blood Gas Notified Whom GURDEEP SAUER Blood Gas Notified Time 01/17/2017 6:45:45 AM 01/17/2017 8:46:41 AM Bedside Glucose 89 Blood Gas Pressure Support 15 Test 01/17/17 10:35 Bedside Glucose 102 Medications Medications Current Medications Aspirin (Aspirin) 81 mg DAILY PO Last administered on 01/16/17 09:08; Admin Dose 81 MG; Start 01/14/17 at 09:00 Atorvastatin Calcium (Lipitor) 40 mg HS PO Last administered on 01/16/17 21:47 ; Admin Dose 40 MG; Start 01/13/17 at 21:00 Metoprolol Tartrate (Lopressor) 25 mg BID PO Last administered on 01/16/17 21: 48; Admin Dose 25 MG; Start 01/13/17 at 21:00 Amiodarone HCl (Cordarone) 200 mg BID PO Last administered on 01/16/17 21:48; Admin Dose 200 MG; Start 01/13/17 at 21:00 Docusate Sodium (Colace) 100 mg Q12H PO Last administered on 01/16/17 21:48; Admin Dose 100 MG; Start 01/13/17 at 19:30 Duloxetine HCl (Cymbalta) 20 mg DAILY PO Last administered on 01/16/17 09:09; Admin Dose 20 MG; Start 01/14/17 at 09:00; Status Future Hold Lisinopril (Zestril) 2.5 mg DAILY NGT Last administered on 01/15/17 09:00; Admin Dose 2.5 MG; Start 01/14/17 at 09:00; Status Future Hold Al Hydrox/Mg Hydrox/Simethicone (Mag-Al Plus) 30 ml Q4H PRN PO GASTROINTESTINAL UPSET; Start 01/13/17 at 19:30 Montelukast Sodium (Singulair) 10 mg HS NGT Last administered on 01/16/17 21:48 ; Admin Dose 10 MG; Start 01/13/17 at 21:00 Nitroglycerin (Nitroglycerin (Sl Tab) 0.4 Mg) 1 tab Q5M PRN SL CHEST PAIN; Start 01/13/17 at 19:30 Oxycodone/ Acetaminophen (Percocet (5/ 325)) 1 tab Q4 PRN PO SEVERE PAIN LEVEL 7-10 Last administered on 01/15/17 08:59; Admin Dose 1 TAB; Start 01/13/17 at 19: 30; Status Future Hold Diagnostic Test (Pha) (Accu-Chek) 1 ea 02 XX Last administered on 01/17/17 02: 02; Admin Dose 1 EA; Start 01/14/17 at 02:00 Miscellaneous Information 1 ea NOTE XX ; Start 01/13/17 at 20:00 Glucose (Glutose) 15 gm Q15M PRN PO DECREASED GLUCOSE; Start 01/13/17 at 20:00 Glucose (Glutose) 22.5 gm Q15M PRN PO DECREASED GLUCOSE; Start 01/13/17 at 20:00 Dextrose (D50w Syringe) 25 ml Q15M PRN IV DECREASED GLUCOSE; Start 01/13/17 at 20:00 Dextrose (D50w Syringe) 50 ml Q15M PRN IV DECREASED GLUCOSE; Start 01/13/17 at 20:00 Glucagon (Glucagen) 1 mg Q15M PRN IM DECREASED GLUCOSE; Start 01/13/17 at 20:00 Glucose (Glutose) 15 gm Q15M PRN BUCCAL DECREASED GLUCOSE; Start 01/13/17 at 20: 00 Miscellaneous Information (Pending Santyl Order For Wound Care) This patient panda... PRN PRN XX WOUND CARE; Start 01/14/17 at 11:00 Pantoprazole (Protonix Tab) 40 mg DAILY@06 PO Last administered on 01/16/17 05: 10; Admin Dose 40 MG; Start 01/15/17 at 06:00 Insulin Detemir (Levemir) 28 unit DAILY@20 SC Last administered on 01/16/17 21: 56; Admin Dose 28 UNIT; Start 01/15/17 at 20:00; Status Future Hold Enoxaparin Sodium 30 mg 30 mg DAILY SC Last administered on 01/17/17 10:16; Admin Dose 30 MG; Start 01/17/17 at 09:00 Meropenem (Merrem 500 Mg/ 100 ml (Pmx)) 100 ml @ 200 mls/hr Q12 IVPB Last administered on 01/17/17 12:16; Admin Dose 200 MLS/HR; Start 01/16/17 at 21:00 Linezolid 600 mg 600 mg BID PO Last administered on 01/16/17 21:47; Admin Dose 600 MG; Start 01/16/17 at 21:00 Dextrose/Sodium Chloride (D5-1/2ns) 1,000 ml @ 75 mls/hr [id number] IV Last administered on 01/17/17 10:14; Admin Dose 75 MLS/HR; Start 01/17/17 at 09:00 MICHAEL AUGUSTIN January 17, 2017 17:53
[2017-01-17] MEDS ORDERED: SOD CHLORIDE 0.9% 500 ML IV ONE (20:30)
[2017-01-17 20:32] LABS: AADO2 Arterial 61.2 mmHg (7.0-24.0); Allen Test ACCEPTAB; Arterial Base Excess 1.3 mmol/L (-3.0-3); Arterial COHb 0.3 % (0.0-3.0); Arterial Fraction of Oxyhgb 94.9 % (93.0-99.0); Arterial HCO3 27.9 mmol/L (22.0-26.0); Arterial MetHb 0.4 % (0.0-1.5); Arterial Total Hemglobin 9.8 g/dl (12.0-18.0); Blood Gas IEPAP 18/8; MODE MASK - BIPAP
[2017-01-17] MEDS: ATORVASTATIN 40 MG TAB PO SCH (21:00)
[2017-01-17] MEDS: MONTELUKAST 10 MG TAB NGT SCH (21:00)
[2017-01-17] MEDS ORDERED: LINEZOLID 600 MG/D5W (PMX) 300 ML IVPB SCH (21:30)
[2017-01-17] MEDS: LINEZOLID 600 MG/D5W (PMX) 300 ML IVPB SCH (22:14)
[2017-01-18] VITALS (28 sets, daily range): BP systolic 85–150; BP diastolic 35–115; PULSE 57–76; RESP 12–22
[2017-01-18] MEDS: INSULIN ASPART [NOVOLOG] 3 ML PEN SC SCH ×6 (01:00→21:00)
[2017-01-18] MEDS: ALBUTEROL 0.083% (NEB) 2.5 MG/3 ML AMP HHN SCH ×6 (01:14→20:54)
[2017-01-18] MEDS: DEXTROSE 5%-0.45% NACL 1,000 ML IV SCH (02:35)
[2017-01-18] MEDS: PANTOPRAZOLE (EC) 40 MG TAB PO SCH (06:00)
[2017-01-18 06:01] LABS: ADD SCAN DIFF NO
[2017-01-18 06:19] LABS: BASOPHIL # 0.1 10^3/ul (0.0-0.1); BASOPHILS % 0.4 % (0.0-2.0); EOSINOPHILS # 0.1 10^3/ul (0.0-0.5); EOSINOPHILS % 0.7 % (0.0-7.0); HEMATOCRIT 26.5 % (37.0-47.0); HEMOGLOBIN 8.5 g/dl (12.0-16.0); LYMPHOCYTES # 1.2 10^3/ul (0.8-2.9); LYMPHOCYTES % 9.2 % (15.0-51.0); MEAN CORPUSCULAR HEMOGLOBIN 29.3 pg (29.0-33.0); MEAN CORPUSCULAR HGB CONC 32.1 g/dl (32.0-37.0); MEAN CORPUSCULAR VOLUME 91.4 fl (82.0-101.0); MEAN PLATELET VOLUME 9.9 fl (7.4-10.4); MONOCYTE # 1.3 10^3/ul (0.3-0.9); MONOCYTES % 9.4 % (0.0-11.0); NEUTROPHIL # 10.6 10^3/ul (1.6-7.5); NEUTROPHILS % 79.3 % (39.0-77.0); PLATELET COUNT 382 10^3/UL (140-415); RED CELL DISTRIBUTION WIDTH 15.1 % (11.5-14.5); WHITE BLOOD COUNT 13.4 10^3/ul (4.8-10.8)
[2017-01-18 06:36] LABS: CALCIUM 7.6 mg/dl (8.4-10.2); CREATININE 1.42 mg/dl (0.44-1.00); PHOSPHORUS 4.1 mg/dl (2.5-4.9)
[2017-01-18] MEDS: DOCUSATE SODIUM 100 MG CAP PO SCH ×2 (06:51→19:30)
--- NOTE | 2017-01-18 07:52 | PN ---
DATE: 01/17/2017 SUBJECTIVE: The patient was reviewed multiple times today. [facility] in [facility] mental status. The patient was found to be less responsive and ser ies of blood gases had shown that she had some respiratory acidosis. I reviewed the patient early i n the morning at about 8:30, and I did find the patient less responsive than she was previously. Re view of medication did show that she had been on chronic long-term MS-Contin 3 times a day; however, in view of her declined renal function, I considered that this might be the cause of her somnolence . I decided to order 1 dose of intravenous Narcan as well as repeated blood gas on her. Upon recei ving the dose of Narcan, the patient's mentation improved significantly, and she was able to communi karolina; however, her blood gases continued to show a respiratory acidosis; however, this was drawn bef ore the Narcan was given. So I decided to still send her to the intensive care unit for further mon itoring and management. Note that she was on BiPAP therapy and had been placed on this overnight wh en they had first noticed her respiratory acidosis. A few hours later, I went down to review in the emergency room. The patient is still somewhat altered and still not back to her original baseline, and as such, I ordered a repeat blood gas. She is able to communicate, able to provide ____, but sh e did have a spaced out look at times which warranted ordering an EEG. OBJECTIVE: VITAL SIGNS: Temperature 98.1, pulse 69, respirations 21, blood pressure 129/77, saturations 100% o n oxygen via ____ 2 L a minute. GENERAL: The patient is alert, but not fully focused. She is able to follow commands. She is comf ortable. HEENT: Head is normocephalic. Pupils are equal and reactive. Mucous membranes are moist. CHEST: Coarse breath sounds without wheezing. She does have a healing surgical scar from coronary artery bypass surgery. CARDIOVASCULAR: S1 and S2, no murmurs. ABDOMEN: Obese, soft, nontender, normoactive bowel sounds. EXTREMITIES: Bilateral extremities have edema. The patient does have left calf wound, the indurati on improving from previous surgery. LABORATORY VALUES: Leukocytosis of 19,000, hemoglobin is 8.5, platelet count is normal at 409. On her chemistry, the initial one had a sodium of 134, but this is now 131, potassium was 5.6, but impr freddy to 5.3, creatinine 2.7, now 2.8, glucose is high, calcium is on the low side at 7.5. Her LFTs were normal. IMAGING: She had a chest x-ray done that showed cardiomegaly with mild pulmonary venous obstruction , consolidation in left lower lobe and lingula which may be the result of infiltrate or atelectasis and pleural effusion, status post mediastinotomy for prior thoracic surgery. ____ result of thyroid ectomy. ASSESSMENT: A 66-year-old female being managed for the followin. Acute alteration in mental status, likely secondary to #2. 2. Hypercapnic respiratory failure for which the cause is quite unclear, rule out occult seizure ve rsus new cerebral insult. Dictated By: MICHAEL AUGUSTIN MD, BA/[place] Conf#: [id number] DID#: [id number]
[2017-01-18 09:00] LABS: AADO2 Arterial 52.4 mmHg (7.0-24.0); Allen Test ACCEPTAB; Arterial Base Excess 3.4 mmol/L (-3.0-3); Arterial COHb 0.1 % (0.0-3.0); Arterial Fraction of Oxyhgb 96.4 % (93.0-99.0); Arterial HCO3 29.5 mmol/L (22.0-26.0); Arterial MetHb 0.3 % (0.0-1.5); Arterial Total Hemglobin 9.1 g/dl (12.0-18.0); Blood Gas IEPAP 18/8; MODE HOOD
[2017-01-18] MEDS: METOPROLOL 25 MG TAB PO SCH ×2 (09:00→21:00)
[2017-01-18] MEDS: ASPIRIN 81 MG TAB PO SCH (09:00)
[2017-01-18] MEDS: AMIODARONE 200 MG TAB PO SCH ×2 (09:00→21:00)
--- NOTE | 2017-01-18 09:04 | RADRPT ---
PROCEDURE: XR Chest 1 view. CLINICAL INDICATION: Shortness of breath TECHNIQUE: AP views of the chest was obtained. COMPARISON: Yesterday FINDINGS: The heart is large. Calcified atherosclerosis is noted in the aorta. Mediasternotomy wires and surg ical clips overlie the heart. Central pulmonary vascular congestion and interstitial prominence in both lungs is unchanged. Retrocardiac opacity is stable. Atelectasis versus mild infiltrates in the perihilar right lower lobe appear stable. The osseous structures are unchanged. IMPRESSION: Cardiomegaly with calcified atherosclerosis in the aorta. Stable central pulmonary vascular congestion and interstitial prominence in both lungs. Stable retrocardiac opacity that may reflect left lower lobe atelectasis or infiltrate combined with small to moderate pleural effusion. Stable atelectasis versus mild infiltrates in the perihilar right lower lobe. RPTAT: AA .Ole Garcia MD, Date Time Electronically viewed and signed by .Ole Garcia MD, on 01/18/2017 09:04 .P/
[2017-01-18] MEDS: DEXTROSE 5%-0.9% NACL 1,000 ML IV SCH ×2 (09:10→21:20)
[2017-01-18] MEDS: LINEZOLID 600 MG/D5W (PMX) 300 ML IVPB SCH ×2 (09:10→22:37)
[2017-01-18] MEDS: ENOXAPARIN 30 MG/0.3 ML SYG SC SCH (09:11)
--- NOTE | 2017-01-18 09:14 | PN ---
DATE: 01/18/2017 SUBJECTIVE: The patient was transferred to intensive care unit due to respiratory distress. The yamini varela is currently on BiPAP overnight without any clinical changes. OBJECTIVE: VITAL SIGNS: Blood pressure is 95/45, respirations 20, pulse 67, temperature 98.5. I's AND O'S: The patient had 2.4 liters in, 1.1 liters out. HEENT: Head is normocephalic. NECK: Supple. HEART: Regular rate. LUNGS: Show diminished breath sounds at the base, positive rhonchi. ABDOMEN: Soft, nontender to palpation. No rebound or guarding. EXTREMITIES: Negative for clubbing, cyanosis. Positive edema. DERMATOLOGIC: No rashes. MUSCULOSKELETAL: No joint effusions. NEUROLOGIC: No change in exam. MEDICATIONS: The patient's medications have been reviewed. LABORATORY DATA: Shows a sodium of 132, potassium 4.0, chloride 101, BUN 41, creatinine 1.42. Whit e count 13.4, hemoglobin 8.5, hematocrit 26.5, platelet count is 352. IMAGING: Chest x-ray was reviewed, shows cardiomegaly with mild venous congestion and consolidation of left lower lobe and ____. ASSESSMENT AND PLAN: 1. Nonoliguric acute kidney injury with previous baseline creatinine of 0.5 mg/dL. Etiology is sec ondary to acute tubular necrosis due to sepsis hemodynamics. The patient's renal function has been improving over the last 24-48 hours with supportive care and IV fluids. At this point, would contin ue current treatment plan. Continue supportive care, renally dose all meds, avoid nephrotoxins. Th e patient's vancomycin was discontinued. All other antibiotics are appropriately dosed. Continue to observe closely. 2. Hyponatremia secondary to acute kidney injury causing decreased free water urinary excretion. T he patient is currently on hypertonic fluids. Will change from half NS to normal saline. 3. Hyperkalemia secondary to acute kidney injury, resolved. 4. Mineral bone disorder. Continue to monitor calcium and phosphorus levels. 5. Respiratory acidosis. The patient is currently on BiPAP, improving. Continue. We will follow u p an ABG. 6. Acute encephalopathy, etiology unclear, toxic metabolic sepsis, questionable uremic component. The patient continues to be confused, but consider CT scan of the head. 7. Anemia. Continue to monitor hemoglobin and hematocrit levels. 8. Sepsis secondary to pneumonia. Continue current antibiotic regimen. 9. Lower extremity cellulitis. Continue current treatment plan. Follow up with Infectious Disease . 10. Hypertension. Continue to monitor. 11. History of obesity. Continue dietary modification. 12. History of coronary artery disease, status post coronary artery bypass graft. Continue medical management. 13. Cardiomyopathy. Continue current treatment plan. 14. Paroxysmal atrial fibrillation, currently in sinus rhythm. Continue to monitor. Dictated By: BART ALBRIGHT/[place] Conf#: [id number] DID#: [id number]
--- NOTE | 2017-01-18 10:55 | CONS ---
Date/Time of Note Date/Time of Note DATE: 01/18/17 TIME: 10:53 Consult Date/Type/Reason Admit Date/Time January 13, 2017 at 14:21 Initial Consult Date Type of Consultation: pulmonary Subjective Patient is more comfortable this morning Continue BiPAP overnight More alert and less respiratory distress Objective Vital Signs Date Time Temp Pulse Resp B/P Pulse Ox O2 Delivery O2 Flow Rate FiO2 01/18/17 10:00 62 21 128/59 100 BIPAP 2.0 01/18/17 08:00 98.4 01/18/17 07:50 30 Intake and Output 01/17/17 01/17/17 01/18/17 15:00 23:00 07:00 Intake Total 500.00 ml 1100 ml 900 ml Output Total 290 ml 410 ml 425 ml Balance 210.00 ml 690 ml 475 ml Exam PHYSICAL EXAMINATION: GENERAL: Chronically ill appearing lady, somnolent on nasal cannula O2. VITAL SIGNS: As above NECK: Supple. No JVD or lymphadenopathy. CARDIAC: S1, S2, no added sounds or murmurs. CHEST: Diminished air entry bilaterally. ABDOMEN: Soft, nontender. No guarding or rebound. EXTREMITIES: No cyanosis, clubbing, edema. NEUROLOGIC: Generalized weakness. Results/Medications Result Diagram: 01/18/17 0530 01/18/17 0530 Results 24 hrs Laboratory Tests Test 01/17/17 12:42 01/17/17 13:46 01/17/17 16:00 01/17/17 17:10 Blood Gas Specimen Source Blood arterial Blood arterial Arterial Blood Date Drawn 01/17/2017 12:46:34 PM 01/17/2017 4:00:40 PM Arterial Blood pH (Temp corrected) 7.284 *L 7.288 *L Arterial Blood pCO2 (Temp correct) 61.2 H 61.4 H Arterial Blood pO2 (Temp corrected) 87.3 88.2 Arterial Blood HCO3 28.4 H 28.7 H Arterial Blood Base Excess 1.0 1.4 Arterial Blood Oxygen Saturation 95.6 95.3 Amor Test ACCEPTAB ACCEPTAB Arterial Blood Gas Puncture Site Left Radial Right Radial Arterial Blood Carboxyhemoglobin 0.3 0.3 Arterial Blood Methemoglobin 0.5 0.4 Blood Gas A-a O2 Differential 54.7 H 53.6 H Oxyhemoglobin Percent 94.8 94.6 Total Hemoglobin 9.5 L 9.3 L Blood Gas Temperature 37.0 37.0 Blood Gas Modality NASAL CANNULA MASK - BIPAP FiO2 30.0 30.0 Blood Gas Critical Value Read Back MONIQUE LANIER RN Blood Gas Notified Whom Denny DIAL Blood Gas Notified Time 01/17/2017 12:55:25 PM 01/17/2017 4:09:35 PM Bedside Glucose 117 103 Blood Gas Respiration Rate 20.0 Blood Gas Actual Respiration Rate 24 Blood Gas IPAP/EPAP Ratio 18 Test 01/17/17 20:21 01/17/17 21:34 01/18/17 01:10 01/18/17 04:54 Blood Gas Specimen Source Blood arterial Arterial Blood Date Drawn 01/17/2017 8:15:11 PM Arterial Blood pH (Temp corrected) 7.326 L Arterial Blood pCO2 (Temp correct) 54.7 H Arterial Blood pO2 (Temp corrected) 88.4 Arterial Blood HCO3 27.9 H Arterial Blood Base Excess 1.3 Arterial Blood Oxygen Saturation 95.6 Amor Test ACCEPTAB Arterial Blood Gas Puncture Site Left Radial Arterial Blood Carboxyhemoglobin 0.3 Arterial Blood Methemoglobin 0.4 Blood Gas A-a O2 Differential 61.2 H Oxyhemoglobin Percent 94.9 Total Hemoglobin 9.8 L Blood Gas Temperature 37.0 Blood Gas Respiration Rate 20.0 Blood Gas Actual Respiration Rate 22 Blood Gas Modality MASK - BIPAP FiO2 30.0 Blood Gas IPAP/EPAP Ratio 30/04 Blood Gas Notified Whom [place] Blood Gas Notified Time 01/17/2017 8:32:41 PM Bedside Glucose 85 97 129 Test 01/18/17 05:30 01/18/17 07:00 01/18/17 09:08 White Blood Count 13.4 #H Red Blood Count 2.90 L Hemoglobin 8.5 L Hematocrit 26.5 L Mean Corpuscular Volume 91.4 Mean Corpuscular Hemoglobin 29.3 Mean Corpuscular Hemoglobin Concent 32.1 Red Cell Distribution Width 15.1 H Platelet Count 382 Mean Platelet Volume 9.9 Neutrophils % 79.3 H Lymphocytes % 9.2 L Monocytes % 9.4 Eosinophils % 0.7 Basophils % 0.4 Nucleated Red Blood Cells % 0.0 Neutrophils # 10.6 H Lymphocytes # 1.2 Monocytes # 1.3 H Eosinophils # 0.1 Basophils # 0.1 Nucleated Red Blood Cells # 0.0 Sodium Level 132 L Potassium Level 5.0 Chloride Level 101 Carbon Dioxide Level 28 Anion Gap 8 Blood Urea Nitrogen 41 H Creatinine 1.42 #H Glucose Level 96 Calcium Level 7.6 L Phosphorus Level 4.1 # Magnesium Level 2.0 Thyroid Stimulating Hormone (TSH) 1.640 Free Thyroxine 1.43 Blood Gas Specimen Source Blood arterial Arterial Blood Date Drawn 01/18/2017 8:00:31 AM Arterial Blood pH (Temp corrected) 7.358 Arterial Blood pCO2 (Temp correct) 53.7 H Arterial Blood pO2 (Temp corrected) 98.4 Arterial Blood HCO3 29.5 H Arterial Blood Base Excess 3.4 H Arterial Blood Oxygen Saturation 96.8 Amor Test ACCEPTAB Arterial Blood Gas Puncture Site Right Radial Arterial Blood Carboxyhemoglobin 0.1 Arterial Blood Methemoglobin 0.3 Blood Gas A-a O2 Differential 52.4 H Oxyhemoglobin Percent 96.4 Total Hemoglobin 9.1 L Blood Gas Temperature 37.0 Blood Gas Respiration Rate 20.0 Blood Gas Actual Respiration Rate 20 Blood Gas Modality OLIVERA FiO2 30.0 Blood Gas IPAP/EPAP Ratio 30/04 Blood Gas Notified Whom JLD Blood Gas Notified Time 01/18/2017 9:00:16 AM Bedside Glucose 122 Medications Current Medications Aspirin (Aspirin) 81 mg DAILY PO Last administered on 01/16/17 09:08; Admin Dose 81 MG; Start 01/14/17 at 09:00 Atorvastatin Calcium (Lipitor) 40 mg HS PO Last administered on 01/16/17 21:47 ; Admin Dose 40 MG; Start 01/13/17 at 21:00 Metoprolol Tartrate (Lopressor) 25 mg BID PO Last administered on 01/16/17 21: 48; Admin Dose 25 MG; Start 01/13/17 at 21:00 Amiodarone HCl (Cordarone) 200 mg BID PO Last administered on 01/16/17 21:48; Admin Dose 200 MG; Start 01/13/17 at 21:00 Docusate Sodium (Colace) 100 mg Q12H PO Last administered on 01/16/17 21:48; Admin Dose 100 MG; Start 01/13/17 at 19:30 Duloxetine HCl (Cymbalta) 20 mg DAILY PO Last administered on 01/16/17 09:09; Admin Dose 20 MG; Start 01/14/17 at 09:00; Status Future Hold Lisinopril (Zestril) 2.5 mg DAILY NGT Last administered on 01/15/17 09:00; Admin Dose 2.5 MG; Start 01/14/17 at 09:00; Status Future Hold Al Hydrox/Mg Hydrox/Simethicone (Mag-Al Plus) 30 ml Q4H PRN PO GASTROINTESTINAL UPSET; Start 01/13/17 at 19:30 Montelukast Sodium (Singulair) 10 mg HS NGT Last administered on 01/16/17 21:48 ; Admin Dose 10 MG; Start 01/13/17 at 21:00 Nitroglycerin (Nitroglycerin (Sl Tab) 0.4 Mg) 1 tab Q5M PRN SL CHEST PAIN; Start 01/13/17 at 19:30 Oxycodone/ Acetaminophen (Percocet (5/ 325)) 1 tab Q4 PRN PO SEVERE PAIN LEVEL 7-10 Last administered on 01/15/17 08:59; Admin Dose 1 TAB; Start 01/13/17 at 19: 30; Status Future Hold Miscellaneous Information 1 ea NOTE XX ; Start 01/13/17 at 20:00 Glucose (Glutose) 15 gm Q15M PRN PO DECREASED GLUCOSE; Start 01/13/17 at 20:00 Glucose (Glutose) 22.5 gm Q15M PRN PO DECREASED GLUCOSE; Start 01/13/17 at 20:00 Dextrose (D50w Syringe) 25 ml Q15M PRN IV DECREASED GLUCOSE; Start 01/13/17 at 20:00 Dextrose (D50w Syringe) 50 ml Q15M PRN IV DECREASED GLUCOSE; Start 01/13/17 at 20:00 Glucagon (Glucagen) 1 mg Q15M PRN IM DECREASED GLUCOSE; Start 01/13/17 at 20:00 Glucose (Glutose) 15 gm Q15M PRN BUCCAL DECREASED GLUCOSE; Start 01/13/17 at 20: 00 Miscellaneous Information (Pending Santyl Order For Wound Care) This patient panda... PRN PRN XX WOUND CARE; Start 01/14/17 at 11:00 Pantoprazole (Protonix Tab) 40 mg DAILY@06 PO Last administered on 01/16/17 05: 10; Admin Dose 40 MG; Start 01/15/17 at 06:00 Insulin Detemir (Levemir) 28 unit DAILY@20 SC Last administered on 01/16/17 21: 56; Admin Dose 28 UNIT; Start 01/15/17 at 20:00; Status Future Hold Enoxaparin Sodium 30 mg 30 mg DAILY SC Last administered on 01/18/17 09:11; Admin Dose 30 MG; Start 01/17/17 at 09:00 Meropenem (Merrem 500 Mg/ 100 ml (Pmx)) 100 ml @ 200 mls/hr Q12 IVPB Last administered on 01/17/17 12:16; Admin Dose 200 MLS/HR; Start 01/16/17 at 21:00 Insulin Aspart NOVOLOG *MODERATE* ALGORI... Q4 SC ; Start 01/17/17 at 13:00 Linezolid 300 ml @ 300 mls/hr Q12 IVPB Last administered on 01/18/17 09:10; Admin Dose 300 MLS/HR; Start 01/17/17 at 22:00 Dextrose/Sodium Chloride (D5-NS) 1,000 ml @ 75 mls/hr [id number] IV Last administered on 01/18/17 09:10; Admin Dose 75 MLS/HR; Start 01/18/17 at 08:00 Assessment/Plan Chief Complaint/Hosp Course IMPRESSION AND PLAN: 1. Hypercapnic respiratory failure, likely secondary to encephalopathy probably from infection. Evidence of CHF on chest x-ray 2. Acute urinary tract infection. 3. Recent coronary artery bypass graft surgery. 4. History of coronary artery disease. 5. History of diabetes mellitus. 6. Left lower lobe pneumonia. Patient will require: 1. Antibiotics, currently on Zyvox. 2. Continue supplemental O2. 3. Noninvasive positive pressure ventilation. 4. Pulmonary toilet. 5. DVT and GI prophylaxis. 6. Lasix 40 mg twice a day Disposition continue ICU care today Problems: JEFE AGEE MD, [facility] January 18, 2017 10:55
--- NOTE | 2017-01-18 11:52 | PN ---
Date/Time of Note Date/Time of Note DATE: 01/18/17 TIME: 11:48 Assessment/Plan VTE Prophylaxis VTE Prophylaxis Intervention: LMWH Lines/Catheters IV Catheter Type (from Nrs): Saline Lock Urinary Cath still in place: Yes Reason Cath still needed: urinary retention Assessment/Plan Chief Complaint/Hosp Course Assessment/Plan: 66 yo F who presented with SOB managed for 1. Acute Hypercapneic Resp failure on bipap: ?aspiration - sec to encephalopathy probably from infection. Evidence of CHF on chest x-ray 2. Sepsis 2/2 L sided Persistent pneumonia and MRSA Cellulitis 3. L calf wound MRSA infection and cellulitis now with Sepsis 4. Coronary artery disease s/p CABG 12/07/2016 5. Hypertension : controlled 6. Dyslipidemia 7. Diabetes mellitus with diabetic neuropathy 8. Chronic depression: stable 9. Obesity / ?PCOS 10. Nicotine dependency 11. Hypomagnesemia 12. New onset renal failure: ?ATN from sepsis 13. Chest pain likely 2/2 #2 : improved PLAN: * Continue broad spectrum antibiotics, lasix * Hold all home meds that may affect her mentation * NPO for now / Speech therapy eval * ICU transfer for close monitoring * Pulmonary consult * Supportive care CriticAL CARE TIME = 45 MIN Problems: Subjective 24 Hr Interval Summary Free Text/Dictation No acute events overnight, seen by pulm team. Exam/Review of Systems Vital Signs Vitals Vital Signs Date Time Temp Pulse Resp B/P Pulse Ox O2 Delivery O2 Flow Rate FiO2 01/18/17 10:00 62 21 128/59 100 BIPAP 2.0 01/18/17 08:00 98.4 01/18/17 07:50 30 Intake and Output 01/17/17 01/17/17 01/18/17 15:00 23:00 07:00 Intake Total 500.00 ml 1100 ml 900 ml Output Total 290 ml 410 ml 425 ml Balance 210.00 ml 690 ml 475 ml Exam GENERAL: The patient is lying in bed HEENT: Head is normocephalic. Pupils are equal and reactive. Mucous membranes are moist. CHEST: less coarse breath sounds without wheezing. She does have a healing surgical scar from coronary artery bypass surgery. CARDIOVASCULAR: S1 and S2, no murmurs. ABDOMEN: Obese, soft, nontender, normoactive bowel sounds. EXTREMITIES: Bilateral extremities have edema. The patient does have left calf wound, the induration improving from previous surgery. Results Result Diagram: 01/18/17 0530 01/18/17 0530 Results 24 hrs Laboratory Tests Test 01/17/17 12:42 01/17/17 13:46 01/17/17 16:00 01/17/17 17:10 Blood Gas Specimen Source Blood arterial Blood arterial Arterial Blood Date Drawn 01/17/2017 12:46:34 PM 01/17/2017 4:00:40 PM Arterial Blood pH (Temp corrected) 7.284 *L 7.288 *L Arterial Blood pCO2 (Temp correct) 61.2 H 61.4 H Arterial Blood pO2 (Temp corrected) 87.3 88.2 Arterial Blood HCO3 28.4 H 28.7 H Arterial Blood Base Excess 1.0 1.4 Arterial Blood Oxygen Saturation 95.6 95.3 Amor Test ACCEPTAB ACCEPTAB Arterial Blood Gas Puncture Site Left Radial Right Radial Arterial Blood Carboxyhemoglobin 0.3 0.3 Arterial Blood Methemoglobin 0.5 0.4 Blood Gas A-a O2 Differential 54.7 H 53.6 H Oxyhemoglobin Percent 94.8 94.6 Total Hemoglobin 9.5 L 9.3 L Blood Gas Temperature 37.0 37.0 Blood Gas Modality NASAL CANNULA MASK - BIPAP FiO2 30.0 30.0 Blood Gas Critical Value Read Back MONIQUE LANIER RN Blood Gas Notified Whom Denny DIAL Blood Gas Notified Time 01/17/2017 12:55:25 PM 01/17/2017 4:09:35 PM Bedside Glucose 117 103 Blood Gas Respiration Rate 20.0 Blood Gas Actual Respiration Rate 24 Blood Gas IPAP/EPAP Ratio 18 Test 01/17/17 20:21 01/17/17 21:34 01/18/17 01:10 01/18/17 04:54 Blood Gas Specimen Source Blood arterial Arterial Blood Date Drawn 01/17/2017 8:15:11 PM Arterial Blood pH (Temp corrected) 7.326 L Arterial Blood pCO2 (Temp correct) 54.7 H Arterial Blood pO2 (Temp corrected) 88.4 Arterial Blood HCO3 27.9 H Arterial Blood Base Excess 1.3 Arterial Blood Oxygen Saturation 95.6 Amor Test ACCEPTAB Arterial Blood Gas Puncture Site Left Radial Arterial Blood Carboxyhemoglobin 0.3 Arterial Blood Methemoglobin 0.4 Blood Gas A-a O2 Differential 61.2 H Oxyhemoglobin Percent 94.9 Total Hemoglobin 9.8 L Blood Gas Temperature 37.0 Blood Gas Respiration Rate 20.0 Blood Gas Actual Respiration Rate 22 Blood Gas Modality MASK - BIPAP FiO2 30.0 Blood Gas IPAP/EPAP Ratio 30/04 Blood Gas Notified Whom GURDEEP Blood Gas Notified Time 01/17/2017 8:32:41 PM Bedside Glucose 85 97 129 Test 01/18/17 05:30 01/18/17 07:00 01/18/17 09:08 White Blood Count 13.4 #H Red Blood Count 2.90 L Hemoglobin 8.5 L Hematocrit 26.5 L Mean Corpuscular Volume 91.4 Mean Corpuscular Hemoglobin 29.3 Mean Corpuscular Hemoglobin Concent 32.1 Red Cell Distribution Width 15.1 H Platelet Count 382 Mean Platelet Volume 9.9 Neutrophils % 79.3 H Lymphocytes % 9.2 L Monocytes % 9.4 Eosinophils % 0.7 Basophils % 0.4 Nucleated Red Blood Cells % 0.0 Neutrophils # 10.6 H Lymphocytes # 1.2 Monocytes # 1.3 H Eosinophils # 0.1 Basophils # 0.1 Nucleated Red Blood Cells # 0.0 Sodium Level 132 L Potassium Level 5.0 Chloride Level 101 Carbon Dioxide Level 28 Anion Gap 8 Blood Urea Nitrogen 41 H Creatinine 1.42 #H Glucose Level 96 Calcium Level 7.6 L Phosphorus Level 4.1 # Magnesium Level 2.0 Thyroid Stimulating Hormone (TSH) 1.640 Free Thyroxine 1.43 Blood Gas Specimen Source Blood arterial Arterial Blood Date Drawn 01/18/2017 8:00:31 AM Arterial Blood pH (Temp corrected) 7.358 Arterial Blood pCO2 (Temp correct) 53.7 H Arterial Blood pO2 (Temp corrected) 98.4 Arterial Blood HCO3 29.5 H Arterial Blood Base Excess 3.4 H Arterial Blood Oxygen Saturation 96.8 Amor Test ACCEPTAB Arterial Blood Gas Puncture Site Right Radial Arterial Blood Carboxyhemoglobin 0.1 Arterial Blood Methemoglobin 0.3 Blood Gas A-a O2 Differential 52.4 H Oxyhemoglobin Percent 96.4 Total Hemoglobin 9.1 L Blood Gas Temperature 37.0 Blood Gas Respiration Rate 20.0 Blood Gas Actual Respiration Rate 20 Blood Gas Modality OLIVERA FiO2 30.0 Blood Gas IPAP/EPAP Ratio 30/04 Blood Gas Notified Whom CRYSTAL Blood Gas Notified Time 01/18/2017 9:00:16 AM Bedside Glucose 122 Medications Medications Current Medications Aspirin (Aspirin) 81 mg DAILY PO Last administered on 01/16/17 09:08; Admin Dose 81 MG; Start 01/14/17 at 09:00 Atorvastatin Calcium (Lipitor) 40 mg HS PO Last administered on 01/16/17 21:47 ; Admin Dose 40 MG; Start 01/13/17 at 21:00 Metoprolol Tartrate (Lopressor) 25 mg BID PO Last administered on 01/16/17 21: 48; Admin Dose 25 MG; Start 01/13/17 at 21:00 Amiodarone HCl (Cordarone) 200 mg BID PO Last administered on 01/16/17 21:48; Admin Dose 200 MG; Start 01/13/17 at 21:00 Docusate Sodium (Colace) 100 mg Q12H PO Last administered on 01/16/17 21:48; Admin Dose 100 MG; Start 01/13/17 at 19:30 Duloxetine HCl (Cymbalta) 20 mg DAILY PO Last administered on 01/16/17 09:09; Admin Dose 20 MG; Start 01/14/17 at 09:00; Status Future Hold Lisinopril (Zestril) 2.5 mg DAILY NGT Last administered on 01/15/17 09:00; Admin Dose 2.5 MG; Start 01/14/17 at 09:00; Status Future Hold Al Hydrox/Mg Hydrox/Simethicone (Mag-Al Plus) 30 ml Q4H PRN PO GASTROINTESTINAL UPSET; Start 01/13/17 at 19:30 Montelukast Sodium (Singulair) 10 mg HS NGT Last administered on 01/16/17 21:48 ; Admin Dose 10 MG; Start 01/13/17 at 21:00 Nitroglycerin (Nitroglycerin (Sl Tab) 0.4 Mg) 1 tab Q5M PRN SL CHEST PAIN; Start 01/13/17 at 19:30 Oxycodone/ Acetaminophen (Percocet (5/ 325)) 1 tab Q4 PRN PO SEVERE PAIN LEVEL 7-10 Last administered on 01/15/17 08:59; Admin Dose 1 TAB; Start 01/13/17 at 19: 30; Status Future Hold Miscellaneous Information 1 ea NOTE XX ; Start 01/13/17 at 20:00 Glucose (Glutose) 15 gm Q15M PRN PO DECREASED GLUCOSE; Start 01/13/17 at 20:00 Glucose (Glutose) 22.5 gm Q15M PRN PO DECREASED GLUCOSE; Start 01/13/17 at 20:00 Dextrose (D50w Syringe) 25 ml Q15M PRN IV DECREASED GLUCOSE; Start 01/13/17 at 20:00 Dextrose (D50w Syringe) 50 ml Q15M PRN IV DECREASED GLUCOSE; Start 01/13/17 at 20:00 Glucagon (Glucagen) 1 mg Q15M PRN IM DECREASED GLUCOSE; Start 01/13/17 at 20:00 Glucose (Glutose) 15 gm Q15M PRN BUCCAL DECREASED GLUCOSE; Start 01/13/17 at 20: 00 Miscellaneous Information (Pending Santyl Order For Wound Care) This patient panda... PRN PRN XX WOUND CARE; Start 01/14/17 at 11:00 Pantoprazole (Protonix Tab) 40 mg DAILY@06 PO Last administered on 01/16/17 05: 10; Admin Dose 40 MG; Start 01/15/17 at 06:00 Insulin Detemir (Levemir) 28 unit DAILY@20 SC Last administered on 01/16/17 21: 56; Admin Dose 28 UNIT; Start 01/15/17 at 20:00; Status Future Hold Enoxaparin Sodium 30 mg 30 mg DAILY SC Last administered on 01/18/17 09:11; Admin Dose 30 MG; Start 01/17/17 at 09:00 Meropenem (Merrem 500 Mg/ 100 ml (Pmx)) 100 ml @ 200 mls/hr Q12 IVPB Last administered on 01/17/17 12:16; Admin Dose 200 MLS/HR; Start 01/16/17 at 21:00 Insulin Aspart NOVOLOG *MODERATE* ALGORI... Q4 SC ; Start 01/17/17 at 13:00 Linezolid 300 ml @ 300 mls/hr Q12 IVPB Last administered on 01/18/17 09:10; Admin Dose 300 MLS/HR; Start 01/17/17 at 22:00 Dextrose/Sodium Chloride (D5-NS) 1,000 ml @ 75 mls/hr [id number] IV Last administered on 01/18/17 09:10; Admin Dose 75 MLS/HR; Start 01/18/17 at 08:00 EARL SINGLETON January 18, 2017 11:52
[2017-01-18] MEDS: FUROSEMIDE 40 MG INJ IV SCH ×2 (12:01→17:20)
--- NOTE | 2017-01-18 13:00 | CONS ---
Date/Time of Note Date/Time of Note DATE: 01/18/17 TIME: 12:57 Assessment/Plan Assessment/Plan Chief Complaint/Hosp Course SUBJECTIVE: Awake, comfortable on NC, no fevers, NAD MICROBIOLOGY: Left lower extremity wound culture grew MRSA/Enterococcus. Urine cx + C alb ANTIMICROBIALS: 1. Zyvox. 2. Merrem. PHYSICAL EXAMINATION: GENERAL: This is a morbidly obese, well-developed, elderly woman who is awake, in no distress. HEENT: Head atraumatic, normocephalic. Sclerae are anicteric. Buccal mucosa dry. NECK: Supple, trachea midline. CHEST: Rise symmetrical. Breath sounds clear, diminished to bases. HEART: S1, S2. ABDOMEN: Soft. Bowel tones present. EXTREMITIES: Without cyanosis. ASSESSMENT: 1. Sepsis with fevers and leukocytosis. 2. Left lower extremity methicillin-resistant Staphylococcus aureus infected wound. 3. Healthcare-associated pneumonia ?aspiration, s/p resp failure. 4. Acute renal failure. 5. Obesity. 6. Diabetes with diabetic neuropathy. 7. Acute encephalopathy 8. UTI PLAN: Improving, will add Diflucan, continue abx, f/u nephrology/pulmonary rec- s DW RN Problems: Consultation Date/Type/Reason Admit Date/Time January 13, 2017 at 14:21 Type of Consultation: ID Exam/Review of Systems Vital Signs Vitals Vital Signs Date Time Temp Pulse Resp B/P Pulse Ox O2 Delivery O2 Flow Rate FiO2 01/18/17 10:00 62 21 128/59 100 BIPAP 2.0 01/18/17 08:00 98.4 01/18/17 07:50 30 Intake and Output 01/17/17 01/17/17 01/18/17 15:00 23:00 07:00 Intake Total 500.00 ml 1100 ml 900 ml Output Total 290 ml 410 ml 425 ml Balance 210.00 ml 690 ml 475 ml Results Result Diagram: 01/18/17 0530 01/18/17 0530 Results 24 hrs Laboratory Tests Test 01/17/17 13:46 01/17/17 16:00 01/17/17 17:10 01/17/17 20:21 Bedside Glucose 117 103 Blood Gas Specimen Source Blood arterial Blood arterial Arterial Blood Date Drawn 01/17/2017 4:00:40 PM 01/17/2017 8:15:11 PM Arterial Blood pH (Temp corrected) 7.288 *L 7.326 L Arterial Blood pCO2 (Temp correct) 61.4 H 54.7 H Arterial Blood pO2 (Temp corrected) 88.2 88.4 Arterial Blood HCO3 28.7 H 27.9 H Arterial Blood Base Excess 1.4 1.3 Arterial Blood Oxygen Saturation 95.3 95.6 Amor Test ACCEPTAB ACCEPTAB Arterial Blood Gas Puncture Site Right Radial Left Radial Arterial Blood Carboxyhemoglobin 0.3 0.3 Arterial Blood Methemoglobin 0.4 0.4 Blood Gas A-a O2 Differential 53.6 H 61.2 H Oxyhemoglobin Percent 94.6 94.9 Total Hemoglobin 9.3 L 9.8 L Blood Gas Temperature 37.0 37.0 Blood Gas Respiration Rate 20.0 20.0 Blood Gas Actual Respiration Rate 24 22 Blood Gas Modality MASK - BIPAP MASK - BIPAP FiO2 30.0 30.0 Blood Gas IPAP/EPAP Ratio 30/04 30/04 Blood Gas Critical Value Read Back L YANNICK SHIELDS Blood Gas Notified Whom TM GURDEEP Blood Gas Notified Time 01/17/2017 4:09:35 PM 01/17/2017 8:32:41 PM Test 01/17/17 21:34 01/18/17 01:10 01/18/17 04:54 01/18/17 05:30 Bedside Glucose 85 97 129 White Blood Count 13.4 #H Red Blood Count 2.90 L Hemoglobin 8.5 L Hematocrit 26.5 L Mean Corpuscular Volume 91.4 Mean Corpuscular Hemoglobin 29.3 Mean Corpuscular Hemoglobin Concent 32.1 Red Cell Distribution Width 15.1 H Platelet Count 382 Mean Platelet Volume 9.9 Neutrophils % 79.3 H Lymphocytes % 9.2 L Monocytes % 9.4 Eosinophils % 0.7 Basophils % 0.4 Nucleated Red Blood Cells % 0.0 Neutrophils # 10.6 H Lymphocytes # 1.2 Monocytes # 1.3 H Eosinophils # 0.1 Basophils # 0.1 Nucleated Red Blood Cells # 0.0 Sodium Level 132 L Potassium Level 5.0 Chloride Level 101 Carbon Dioxide Level 28 Anion Gap 8 Blood Urea Nitrogen 41 H Creatinine 1.42 #H Glucose Level 96 Calcium Level 7.6 L Phosphorus Level 4.1 # Magnesium Level 2.0 Thyroid Stimulating Hormone (TSH) 1.640 Free Thyroxine 1.43 Test 01/18/17 07:00 01/18/17 09:08 Blood Gas Specimen Source Blood arterial Arterial Blood Date Drawn 01/18/2017 8:00:31 AM Arterial Blood pH (Temp corrected) 7.358 Arterial Blood pCO2 (Temp correct) 53.7 H Arterial Blood pO2 (Temp corrected) 98.4 Arterial Blood HCO3 29.5 H Arterial Blood Base Excess 3.4 H Arterial Blood Oxygen Saturation 96.8 Amor Test ACCEPTAB Arterial Blood Gas Puncture Site Right Radial Arterial Blood Carboxyhemoglobin 0.1 Arterial Blood Methemoglobin 0.3 Blood Gas A-a O2 Differential 52.4 H Oxyhemoglobin Percent 96.4 Total Hemoglobin 9.1 L Blood Gas Temperature 37.0 Blood Gas Respiration Rate 20.0 Blood Gas Actual Respiration Rate 20 Blood Gas Modality OLIVERA FiO2 30.0 Blood Gas IPAP/EPAP Ratio 30/04 Blood Gas Notified Whom JLD Blood Gas Notified Time 01/18/2017 9:00:16 AM Bedside Glucose 122 Medications Medications Current Medications Aspirin (Aspirin) 81 mg DAILY PO Last administered on 01/16/17 09:08; Admin Dose 81 MG; Start 01/14/17 at 09:00 Atorvastatin Calcium (Lipitor) 40 mg HS PO Last administered on 01/16/17 21:47 ; Admin Dose 40 MG; Start 01/13/17 at 21:00 Metoprolol Tartrate (Lopressor) 25 mg BID PO Last administered on 01/16/17 21: 48; Admin Dose 25 MG; Start 01/13/17 at 21:00 Amiodarone HCl (Cordarone) 200 mg BID PO Last administered on 01/16/17 21:48; Admin Dose 200 MG; Start 01/13/17 at 21:00 Docusate Sodium (Colace) 100 mg Q12H PO Last administered on 01/16/17 21:48; Admin Dose 100 MG; Start 01/13/17 at 19:30 Duloxetine HCl (Cymbalta) 20 mg DAILY PO Last administered on 01/16/17 09:09; Admin Dose 20 MG; Start 01/14/17 at 09:00; Status Future Hold Lisinopril (Zestril) 2.5 mg DAILY NGT Last administered on 01/15/17 09:00; Admin Dose 2.5 MG; Start 01/14/17 at 09:00; Status Future Hold Al Hydrox/Mg Hydrox/Simethicone (Mag-Al Plus) 30 ml Q4H PRN PO GASTROINTESTINAL UPSET; Start 01/13/17 at 19:30 Montelukast Sodium (Singulair) 10 mg HS NGT Last administered on 01/16/17 21:48 ; Admin Dose 10 MG; Start 01/13/17 at 21:00 Nitroglycerin (Nitroglycerin (Sl Tab) 0.4 Mg) 1 tab Q5M PRN SL CHEST PAIN; Start 01/13/17 at 19:30 Oxycodone/ Acetaminophen (Percocet (5/ 325)) 1 tab Q4 PRN PO SEVERE PAIN LEVEL 7-10 Last administered on 01/15/17 08:59; Admin Dose 1 TAB; Start 01/13/17 at 19: 30; Status Future Hold Miscellaneous Information 1 ea NOTE XX ; Start 01/13/17 at 20:00 Glucose (Glutose) 15 gm Q15M PRN PO DECREASED GLUCOSE; Start 01/13/17 at 20:00 Glucose (Glutose) 22.5 gm Q15M PRN PO DECREASED GLUCOSE; Start 01/13/17 at 20:00 Dextrose (D50w Syringe) 25 ml Q15M PRN IV DECREASED GLUCOSE; Start 01/13/17 at 20:00 Dextrose (D50w Syringe) 50 ml Q15M PRN IV DECREASED GLUCOSE; Start 01/13/17 at 20:00 Glucagon (Glucagen) 1 mg Q15M PRN IM DECREASED GLUCOSE; Start 01/13/17 at 20:00 Glucose (Glutose) 15 gm Q15M PRN BUCCAL DECREASED GLUCOSE; Start 01/13/17 at 20: 00 Miscellaneous Information (Pending Santyl Order For Wound Care) This patient panda... PRN PRN XX WOUND CARE; Start 01/14/17 at 11:00 Pantoprazole (Protonix Tab) 40 mg DAILY@06 PO Last administered on 01/16/17 05: 10; Admin Dose 40 MG; Start 01/15/17 at 06:00 Insulin Detemir (Levemir) 28 unit DAILY@20 SC Last administered on 01/16/17 21: 56; Admin Dose 28 UNIT; Start 01/15/17 at 20:00; Status Future Hold Enoxaparin Sodium 30 mg 30 mg DAILY SC Last administered on 01/18/17 09:11; Admin Dose 30 MG; Start 01/17/17 at 09:00 Meropenem (Merrem 500 Mg/ 100 ml (Pmx)) 100 ml @ 200 mls/hr Q12 IVPB Last administered on 01/17/17 12:16; Admin Dose 200 MLS/HR; Start 01/16/17 at 21:00 Insulin Aspart NOVOLOG *MODERATE* ALGORI... Q4 SC ; Start 01/17/17 at 13:00 Linezolid 300 ml @ 300 mls/hr Q12 IVPB Last administered on 01/18/17 09:10; Admin Dose 300 MLS/HR; Start 01/17/17 at 22:00 Dextrose/Sodium Chloride (D5-NS) 1,000 ml @ 75 mls/hr [id number] IV Last administered on 01/18/17 09:10; Admin Dose 75 MLS/HR; Start 01/18/17 at 08:00 WESLEY LIRIANO NP January 18, 2017 13:00
[2017-01-18] MEDS ORDERED: FLUCONAZOLE 100 MG/NS (PMX) 50 ML IVPB SCH (14:30)
--- NOTE | 2017-01-18 15:02 | CONS ---
Date/Time of Note Date/Time of Note DATE: 01/18/17 TIME: 15:00 Assessment/Plan Assessment/Plan Additional Assessment/Plan Sepsis Respiratory failure Cellulitis Multivessel coronary artery disease status post CABG Cardiomyopathy with ejection fraction 50% Acute decompensated systolic and diastolic congestive heart failure Paroxysmal atrial fibrillation Diabetes -Diuretics as blood pressure and renal function permits. When asked regarding taking oral medication, patient tells me she does not want to. Would consider social media content specialist/psych evaluation Consultation Date/Type/Reason Admit Date/Time January 13, 2017 at 14:21 Type of Consultation: cv 24 HR Interval Summary Free Text/Dictation Denies shortness of breath, chest pain. Does not want to take medications Exam/Review of Systems Vital Signs Vitals Vital Signs Date Time Temp Pulse Resp B/P Pulse Ox O2 Delivery O2 Flow Rate FiO2 01/18/17 13:40 63 12 98 Nasal Cannula 2.0 01/18/17 10:00 128/59 01/18/17 08:00 98.4 01/18/17 07:50 30 Intake and Output 01/17/17 01/17/17 01/18/17 15:00 23:00 07:00 Intake Total 500.00 ml 1100 ml 900 ml Output Total 290 ml 410 ml 425 ml Balance 210.00 ml 690 ml 475 ml Exam Follows commands, no apparent distress Constitutional: alert Head: normocephalic Respiratory: other (Coarse breath sounds bilaterally, no wheezing) Cardiovascular: regular rate and rhythm (S1-S2 heard) Gastrointestinal: bowel sounds, non-tender, soft Extremities: edema Results Result Diagram: 01/18/17 0530 01/18/17 0530 Results 24 hrs Laboratory Tests Test 01/17/17 16:00 01/17/17 17:10 01/17/17 20:21 01/17/17 21:34 Blood Gas Specimen Source Blood arterial Blood arterial Arterial Blood Date Drawn 01/17/2017 4:00:40 PM 01/17/2017 8:15:11 PM Arterial Blood pH (Temp corrected) 7.288 *L 7.326 L Arterial Blood pCO2 (Temp correct) 61.4 H 54.7 H Arterial Blood pO2 (Temp corrected) 88.2 88.4 Arterial Blood HCO3 28.7 H 27.9 H Arterial Blood Base Excess 1.4 1.3 Arterial Blood Oxygen Saturation 95.3 95.6 Amor Test ACCEPTAB ACCEPTAB Arterial Blood Gas Puncture Site Right Radial Left Radial Arterial Blood Carboxyhemoglobin 0.3 0.3 Arterial Blood Methemoglobin 0.4 0.4 Blood Gas A-a O2 Differential 53.6 H 61.2 H Oxyhemoglobin Percent 94.6 94.9 Total Hemoglobin 9.3 L 9.8 L Blood Gas Temperature 37.0 37.0 Blood Gas Respiration Rate 20.0 20.0 Blood Gas Actual Respiration Rate 24 22 Blood Gas Modality MASK - BIPAP MASK - BIPAP FiO2 30.0 30.0 Blood Gas IPAP/EPAP Ratio 30/04 30/04 Blood Gas Critical Value Read Back L YANNICK SHIELDS Blood Gas Notified Whom JAYRO MACKENZIE Blood Gas Notified Time 01/17/2017 4:09:35 PM 01/17/2017 8:32:41 PM Bedside Glucose 103 85 Test 01/18/17 01:10 01/18/17 04:54 01/18/17 05:30 01/18/17 07:00 Bedside Glucose 97 129 White Blood Count 13.4 #H Red Blood Count 2.90 L Hemoglobin 8.5 L Hematocrit 26.5 L Mean Corpuscular Volume 91.4 Mean Corpuscular Hemoglobin 29.3 Mean Corpuscular Hemoglobin Concent 32.1 Red Cell Distribution Width 15.1 H Platelet Count 382 Mean Platelet Volume 9.9 Neutrophils % 79.3 H Lymphocytes % 9.2 L Monocytes % 9.4 Eosinophils % 0.7 Basophils % 0.4 Nucleated Red Blood Cells % 0.0 Neutrophils # 10.6 H Lymphocytes # 1.2 Monocytes # 1.3 H Eosinophils # 0.1 Basophils # 0.1 Nucleated Red Blood Cells # 0.0 Sodium Level 132 L Potassium Level 5.0 Chloride Level 101 Carbon Dioxide Level 28 Anion Gap 8 Blood Urea Nitrogen 41 H Creatinine 1.42 #H Glucose Level 96 Calcium Level 7.6 L Phosphorus Level 4.1 # Magnesium Level 2.0 Thyroid Stimulating Hormone (TSH) 1.640 Free Thyroxine 1.43 Blood Gas Specimen Source Blood arterial Arterial Blood Date Drawn 01/18/2017 8:00:31 AM Arterial Blood pH (Temp corrected) 7.358 Arterial Blood pCO2 (Temp correct) 53.7 H Arterial Blood pO2 (Temp corrected) 98.4 Arterial Blood HCO3 29.5 H Arterial Blood Base Excess 3.4 H Arterial Blood Oxygen Saturation 96.8 Amor Test ACCEPTAB Arterial Blood Gas Puncture Site Right Radial Arterial Blood Carboxyhemoglobin 0.1 Arterial Blood Methemoglobin 0.3 Blood Gas A-a O2 Differential 52.4 H Oxyhemoglobin Percent 96.4 Total Hemoglobin 9.1 L Blood Gas Temperature 37.0 Blood Gas Respiration Rate 20.0 Blood Gas Actual Respiration Rate 20 Blood Gas Modality OLIVERA FiO2 30.0 Blood Gas IPAP/EPAP Ratio 30/04 Blood Gas Notified Whom JLD Blood Gas Notified Time 01/18/2017 9:00:16 AM Test 01/18/17 09:08 01/18/17 13:20 01/18/17 13:25 Bedside Glucose 122 147 154 Medications Medications Current Medications Aspirin (Aspirin) 81 mg DAILY PO Last administered on 01/16/17 09:08; Admin Dose 81 MG; Start 01/14/17 at 09:00 Atorvastatin Calcium (Lipitor) 40 mg HS PO Last administered on 01/16/17 21:47 ; Admin Dose 40 MG; Start 01/13/17 at 21:00 Metoprolol Tartrate (Lopressor) 25 mg BID PO Last administered on 01/16/17 21: 48; Admin Dose 25 MG; Start 01/13/17 at 21:00 Amiodarone HCl (Cordarone) 200 mg BID PO Last administered on 01/16/17 21:48; Admin Dose 200 MG; Start 01/13/17 at 21:00 Docusate Sodium (Colace) 100 mg Q12H PO Last administered on 01/16/17 21:48; Admin Dose 100 MG; Start 01/13/17 at 19:30 Duloxetine HCl (Cymbalta) 20 mg DAILY PO Last administered on 01/16/17 09:09; Admin Dose 20 MG; Start 01/14/17 at 09:00; Status Future Hold Lisinopril (Zestril) 2.5 mg DAILY NGT Last administered on 01/15/17 09:00; Admin Dose 2.5 MG; Start 01/14/17 at 09:00; Status Future Hold Al Hydrox/Mg Hydrox/Simethicone (Mag-Al Plus) 30 ml Q4H PRN PO GASTROINTESTINAL UPSET; Start 01/13/17 at 19:30 Montelukast Sodium (Singulair) 10 mg HS NGT Last administered on 01/16/17 21:48 ; Admin Dose 10 MG; Start 01/13/17 at 21:00 Nitroglycerin (Nitroglycerin (Sl Tab) 0.4 Mg) 1 tab Q5M PRN SL CHEST PAIN; Start 01/13/17 at 19:30 Oxycodone/ Acetaminophen (Percocet (5/ 325)) 1 tab Q4 PRN PO SEVERE PAIN LEVEL 7-10 Last administered on 01/15/17 08:59; Admin Dose 1 TAB; Start 01/13/17 at 19: 30; Status Future Hold Miscellaneous Information 1 ea NOTE XX ; Start 01/13/17 at 20:00 Glucose (Glutose) 15 gm Q15M PRN PO DECREASED GLUCOSE; Start 01/13/17 at 20:00 Glucose (Glutose) 22.5 gm Q15M PRN PO DECREASED GLUCOSE; Start 01/13/17 at 20:00 Dextrose (D50w Syringe) 25 ml Q15M PRN IV DECREASED GLUCOSE; Start 01/13/17 at 20:00 Dextrose (D50w Syringe) 50 ml Q15M PRN IV DECREASED GLUCOSE; Start 01/13/17 at 20:00 Glucagon (Glucagen) 1 mg Q15M PRN IM DECREASED GLUCOSE; Start 01/13/17 at 20:00 Glucose (Glutose) 15 gm Q15M PRN BUCCAL DECREASED GLUCOSE; Start 01/13/17 at 20: 00 Miscellaneous Information (Pending [facility] Order For Wound Care) This patient panda... PRN PRN XX WOUND CARE; Start 01/14/17 at 11:00 Pantoprazole (Protonix Tab) 40 mg DAILY@06 PO Last administered on 01/16/17 05: 10; Admin Dose 40 MG; Start 01/15/17 at 06:00 Insulin Detemir (Levemir) 28 unit DAILY@20 SC Last administered on 01/16/17 21: 56; Admin Dose 28 UNIT; Start 01/15/17 at 20:00; Status Future Hold Enoxaparin Sodium 30 mg 30 mg DAILY SC Last administered on 01/18/17 09:11; Admin Dose 30 MG; Start 01/17/17 at 09:00 Meropenem (Merrem 500 Mg/ 100 ml (Pmx)) 100 ml @ 200 mls/hr Q12 IVPB Last administered on 01/17/17 12:16; Admin Dose 200 MLS/HR; Start 01/16/17 at 21:00 Insulin Aspart NOVOLOG *MODERATE* ALGORI... Q4 SC Last administered on 14:53; Admin Dose 2 UNIT; Start 01/17/17 at 13:00 Linezolid 300 ml @ 300 mls/hr Q12 IVPB Last administered on 01/18/17 09:10; Admin Dose 300 MLS/HR; Start 01/17/17 at 22:00 Dextrose/Sodium Chloride 1,000 ml @ 75 mls/hr [id number] IV Last administered on 01/18/17 09:10; Admin Dose 75 MLS/HR; Start 01/18/17 at 08:00 Fluconazole/N/A (Diflucan 200 Mg/ NS (Pmx)/Evac Container) 50 ml @ 50 mls/hr Q24H IVPB ; Start 01/18/17 at 15:00 Manuel Escudero DO January 18, 2017 15:02
[2017-01-18 16:29] LABS: MICROALBUMIN 113.2 mg/dL
[2017-01-18] MEDS: FLUCONAZOLE IVPB SCH (18:15)
[2017-01-18] MEDS: NS 100 MG IVPB SCH (18:15)
[2017-01-18] MEDS: EVAC CONTAINER IVPB SCH (18:15)
[2017-01-18] MEDS: ATORVASTATIN 40 MG TAB PO SCH (21:00)
[2017-01-18] MEDS: MONTELUKAST 10 MG TAB NGT SCH (21:00)
[2017-01-18] MEDS: MEROPENEM 500 MG/100 ML (PMX) 100 ML IVPB SCH (21:20)
[2017-01-19] VITALS (19 sets, daily range): BP systolic 94–150; BP diastolic 35–91; PULSE 58–72; RESP 14–23
[2017-01-19] MEDS: INSULIN ASPART [NOVOLOG] 3 ML PEN SC SCH ×6 (00:51→20:55)
[2017-01-19] MEDS: ALBUTEROL 0.083% (NEB) 2.5 MG/3 ML AMP HHN SCH ×6 (01:36→20:59)
[2017-01-19] MEDS: DEXTROSE 5%-0.9% NACL 1,000 ML IV SCH ×2 (02:33→13:34)
[2017-01-19 05:13] LABS: ADD SCAN DIFF NO
[2017-01-19] MEDS: PANTOPRAZOLE (EC) 40 MG TAB PO SCH (05:22)
[2017-01-19] MEDS: FUROSEMIDE 40 MG INJ IV SCH ×2 (05:28→18:10)
[2017-01-19 05:37] LABS: BASOPHIL # 0.1 10^3/ul (0.0-0.1); BASOPHILS % 0.4 % (0.0-2.0); EOSINOPHILS # 0.1 10^3/ul (0.0-0.5); EOSINOPHILS % 0.4 % (0.0-7.0); HEMATOCRIT 28.9 % (37.0-47.0); HEMOGLOBIN 9.1 g/dl (12.0-16.0); LYMPHOCYTES # 1.6 10^3/ul (0.8-2.9); LYMPHOCYTES % 11.8 % (15.0-51.0); MEAN CORPUSCULAR HEMOGLOBIN 28.4 pg (29.0-33.0); MEAN CORPUSCULAR HGB CONC 31.5 g/dl (32.0-37.0); MEAN CORPUSCULAR VOLUME 90.3 fl (82.0-101.0); MEAN PLATELET VOLUME 9.7 fl (7.4-10.4); MONOCYTE # 1.3 10^3/ul (0.3-0.9); MONOCYTES % 9.8 % (0.0-11.0); NEUTROPHIL # 10.1 10^3/ul (1.6-7.5); NEUTROPHILS % 76.8 % (39.0-77.0); PLATELET COUNT 390 10^3/UL (140-415); RED CELL DISTRIBUTION WIDTH 14.9 % (11.5-14.5); WHITE BLOOD COUNT 13.1 10^3/ul (4.8-10.8)
[2017-01-19 05:59] LABS: CREATININE 0.76 mg/dl (0.44-1.00); PHOSPHORUS 2.4 mg/dl (2.5-4.9)
[2017-01-19 06:00] LABS: CALCIUM 7.8 mg/dl (8.4-10.2); MAGNESIUM 1.8 mg/dl (1.7-2.5)
--- NOTE | 2017-01-19 07:10 | NEURPT ---
DATE: 01/18/2017 PROCEDURE: Electroencephalogram. INDICATION: A ____-[id number] lady with encephalopathy. DESCRIPTION OF PROCEDURE: Routine EEG was recorded digitally. Bzmln-[id number] and ryzyi-gd-sui dinah ages were recorded and reviewed. All impedances were measured and recorded. Cap electrodes were pl aced in accordance with International 10-20 system of electrode placement. FINDINGS: Symmetrically distributed background activity of low to medium amplitude ranging in frequ ency between 4 to 6 cycles per second was seen most of the recording, at times slightly faster up to 8 cycles per second. The activity at times intermixes with smaller-amplitude, higher-frequency bet a range activity. No definite epileptiform transients were seen. No response to photic stimulation . No lateralized slowing observed. No signs of ongoing electrographic seizures. IMPRESSION: Abnormal study secondary to background slowing which could reflect presence of encephal opathy. Finding is nonspecific, commonly seen in toxic metabolic type of encephalopathy. Please co rrelate clinically. Dictated By: PELON ELIZALDE/[place] Conf#: [id number] DID#: [id number]
[2017-01-19] MEDS: DOCUSATE SODIUM 100 MG CAP PO SCH ×2 (07:43→18:08)
[2017-01-19] MEDS ORDERED: NEUTRA-PHOS 250 MG PACKET PO ONE (08:00)
[2017-01-19] MEDS: ASPIRIN 81 MG TAB PO SCH (08:13)
[2017-01-19] MEDS: AMIODARONE 200 MG TAB PO SCH ×2 (08:14→20:54)
[2017-01-19] MEDS: METOPROLOL 25 MG TAB PO SCH ×2 (08:14→20:55)
[2017-01-19 08:23] LABS: AADO2 Arterial 42.7 mmHg (7.0-24.0); Allen Test ACCEPTAB; Arterial Base Excess 7.8 mmol/L (-3.0-3); Arterial COHb 0.1 % (0.0-3.0); Arterial HCO3 32.2 mmol/L (22.0-26.0); Arterial MetHb 0.3 % (0.0-1.5); MODE NASAL CANNULA
[2017-01-19] MEDS: MEROPENEM 500 MG/100 ML (PMX) 100 ML IVPB SCH (08:29)
[2017-01-19] MEDS: LINEZOLID 600 MG/D5W (PMX) 300 ML IVPB SCH ×2 (08:29→20:54)
--- NOTE | 2017-01-19 08:59 | PN ---
DATE: 01/19/2017 SUBJECTIVE: The patient is clinically improved, more alert, currently on nasal cannula, tolerating well with good adequate urinary output. No other events noted. OBJECTIVE: VITAL SIGNS: Blood pressure 150/54, respirations 14, pulse 66, temperature 98.5. I's AND O'S: The patient had 2 L in, 5.3 liters out. HEENT: Head is normocephalic. Pupils are reactive to light. NECK: Supple. HEART: Regular rate. LUNGS: Show diminished breath sounds at the base. ABDOMEN: Soft, nontender to palpation without rebound or guarding. EXTREMITIES: Negative for clubbing, cyanosis. Positive edema. DERMATOLOGIC: No rashes. MUSCULOSKELETAL: No joint effusions. NEUROLOGIC: No change in exam. MEDICATIONS: Reviewed. LABORATORY DATA: Shows sodium 137, potassium 4.0, chloride 103, BUN 20, creatinine 0.76, calcium 7. 8, phosphorus 2.4. White count 15.1, hemoglobin 10.1, hematocrit 28.9, platelet count 390. ASSESSMENT AND PLAN: 1. Nonoliguric acute kidney injury with previous baseline creatinine of 0.5 mg/dL. The etiology of acute kidney injury is secondary to acute tubular necrosis. The patient is currently in recovery p hase, as renal function has been improving. Continue supportive care, renally dose all meds, avoid nephrotoxins. 2. Hyponatremia secondary to acute kidney injury, improved. 3. Hypokalemia, resolved. 4. Hyperphosphatemia. Will replete with sodium phosphate. 5. Respiratory acidosis, improved. The patient is currently on nasal cannula. Continue to monitor . 6. Acute encephalopathy, etiology is toxic metabolic. The patient is clinically improving. Contin ue to monitor. 7. Anemia. Continue to monitor hemoglobin and hematocrit levels. 8. Sepsis secondary to pneumonia. Continue current antibiotic regimen. 9. Cellulitis. Continue current antibiotic regimen. 10. Hypertension. Continue current blood pressure regimen. We will decrease IV fluids. 11. History of coronary artery disease status post coronary artery bypass grafting. Continue curren t treatment. 12. Obesity. 13. Cardiomyopathy. Continue medical management. 14. Paroxysmal atrial fibrillation, currently in sinus rhythm. Dictated By: BART ALBRIGHT/[place] Conf#: [id number] DID#: [id number]
[2017-01-19] MEDS: ENOXAPARIN 30 MG/0.3 ML SYG SC SCH (09:03)
--- NOTE | 2017-01-19 09:55 | RADRPT ---
PROCEDURE: Chest 1 views. CLINICAL INDICATION: Shortness of breath TECHNIQUE: AP views of the chest was obtained. COMPARISON: Yesterday FINDINGS: The heart is large. An sternotomy wires and surgical clips overlie the heart. Central pulmonary vas cular congestion and interstitial prominence in both lungs is unchanged. Retrocardiac opacity is st able. Perihilar right lower lobe infiltrates are stable. Osseous structures are unchanged. IMPRESSION: Cardiomegaly . Stable central pulmonary vascular congestion and interstitial prominence in both lungs. Retrocardiac opacity that may reflect left lower lobe atelectasis or infiltrate combined with small pleural effusion. In the perihilar right lower lobe infiltrates. RPTAT: AA .Ole Garcia MD, MD Date Time Electronically viewed and signed by .Ole Garcia MD, on 01/19/2017 09:54 .P/
--- NOTE | 2017-01-19 11:04 | PN ---
Date/Time of Note Date/Time of Note DATE: 01/19/17 TIME: 11:04 Assessment/Plan VTE Prophylaxis VTE Prophylaxis Intervention: LMWH Lines/Catheters IV Catheter Type (from Nrs): Peripheral IV Urinary Cath still in place: Yes Reason Cath still needed: urinary retention Assessment/Plan Chief Complaint/Hosp Course Assessment/Plan: 66 yo F who presented with SOB managed for 1. Acute Hypercapneic Resp failure on bipap: ?aspiration - sec to encephalopathy probably from infection. Evidence of CHF on chest x-ray 2. Sepsis 2/2 L sided Persistent pneumonia and MRSA Cellulitis 3. L calf wound MRSA infection and cellulitis now with Sepsis 4. Coronary artery disease s/p CABG 12/07/2016 5. Hypertension : controlled 6. Dyslipidemia 7. Diabetes mellitus with diabetic neuropathy 8. Chronic depression: stable 9. Obesity / ?PCOS 10. Nicotine dependency 11. Hypomagnesemia 12. New onset renal failure: ?ATN from sepsis 13. Chest pain likely 2/2 #2 : improved PLAN: * Continue broad spectrum antibiotics, lasix * Hold all home meds that may affect her mentation * mech soft diet/thin liquids * ICU transfer for close monitoring * Supportive care * CriticAL CARE TIME = 40 MIN Problems: Subjective 24 Hr Interval Summary Free Text/Dictation Pt refused BiPAP last night. Exam/Review of Systems Vital Signs Vitals Vital Signs Date Time Temp Pulse Resp B/P Pulse Ox O2 Delivery O2 Flow Rate FiO2 01/19/17 10:03 61 18 98 Nasal Cannula 2.0 01/19/17 09:01 99/50 01/19/17 08:00 98.8 01/18/17 07:50 30 Intake and Output 01/18/17 01/18/17 01/19/17 15:00 23:00 07:00 Intake Total 825 ml 530 ml 900 ml Output Total 450 ml 3620 ml 1275 ml Balance 375 ml -3090 ml -375 ml Exam GENERAL: The patient is lying in bed, sleeping HEENT: Head is normocephalic. Pupils are equal and reactive. Mucous membranes are moist. CHEST: less coarse breath sounds without wheezing. She does have a healing surgical scar from coronary artery bypass surgery. CARDIOVASCULAR: S1 and S2, no murmurs. ABDOMEN: Obese, soft, nontender, normoactive bowel sounds. EXTREMITIES: Bilateral extremities have edema. The patient does have left calf wound, the induration improving from previous surgery. Results Result Diagram: 01/19/17 0511 01/19/17 0511 Results 24 hrs Laboratory Tests Test 01/18/17 13:20 01/18/17 13:25 01/18/17 17:18 01/18/17 21:21 Bedside Glucose 147 154 114 111 Test 01/19/17 00:48 01/19/17 05:11 01/19/17 05:26 01/19/17 07:00 Bedside Glucose 176 184 White Blood Count 13.1 H Red Blood Count 3.20 L Hemoglobin 9.1 L Hematocrit 28.9 L Mean Corpuscular Volume 90.3 Mean Corpuscular Hemoglobin 28.4 L Mean Corpuscular Hemoglobin Concent 31.5 L Red Cell Distribution Width 14.9 H Platelet Count 390 Mean Platelet Volume 9.7 Neutrophils % 76.8 Lymphocytes % 11.8 L Monocytes % 9.8 Eosinophils % 0.4 Basophils % 0.4 Nucleated Red Blood Cells % 0.0 Neutrophils # 10.1 H Lymphocytes # 1.6 Monocytes # 1.3 H Eosinophils # 0.1 Basophils # 0.1 Nucleated Red Blood Cells # 0.0 Sodium Level 137 Potassium Level 4.0 Chloride Level 101 Carbon Dioxide Level 31 Anion Gap 9 Blood Urea Nitrogen 28 #H Creatinine 0.76 Glucose Level 140 # Calcium Level 7.8 L Phosphorus Level 2.4 #L Magnesium Level 1.8 Blood Gas Specimen Source Blood arterial Arterial Blood Date Drawn 01/19/2017 7:50:59 AM Arterial Blood pH (Temp corrected) 7.475 H Arterial Blood pCO2 (Temp correct) 44.7 Arterial Blood pO2 (Temp corrected) 97.0 Arterial Blood HCO3 32.2 H Arterial Blood Base Excess 7.8 H Arterial Blood Oxygen Saturation 97.4 Amor Test ACCEPTAB Arterial Blood Gas Puncture Site Right Radial Arterial Blood Carboxyhemoglobin 0.1 Arterial Blood Methemoglobin 0.3 Blood Gas A-a O2 Differential 42.7 H Oxyhemoglobin Percent 97.0 Total Hemoglobin 9.0 L Blood Gas Temperature 37.0 Blood Gas Modality NASAL CANNULA FiO2 27.0 Blood Gas Notified Whom JLD Blood Gas Notified Time 01/19/2017 8:23:41 AM Test 01/19/17 08:43 Bedside Glucose 213 Medications Medications Current Medications Aspirin (Aspirin) 81 mg DAILY PO Last administered on 01/19/17t 08:13; Admin Dose 81 MG; Start 01/14/17 at 09:00 Atorvastatin Calcium (Lipitor) 40 mg HS PO Last administered on 01/16/17 21:47 ; Admin Dose 40 MG; Start 01/13/17 at 21:00 Metoprolol Tartrate (Lopressor) 25 mg BID PO Last administered on 01/19/17 08: 14; Admin Dose 25 MG; Start 01/13/17 at 21:00 Amiodarone HCl (Cordarone) 200 mg BID PO Last administered on 01/19/17 08:14; Admin Dose 200 MG; Start 01/13/17 at 21:00 Docusate Sodium (Colace) 100 mg Q12H PO Last administered on 01/19/17 07:43; Admin Dose 100 MG; Start 01/13/17 at 19:30 Al Hydrox/Mg Hydrox/Simethicone (Mag-Al Plus) 30 ml Q4H PRN PO GASTROINTESTINAL UPSET; Start 01/13/17 at 19:30 Montelukast Sodium (Singulair) 10 mg HS NGT Last administered on 01/16/17 21:48 ; Admin Dose 10 MG; Start 01/13/17 at 21:00 Nitroglycerin (Nitroglycerin (Sl Tab) 0.4 Mg) 1 tab Q5M PRN SL CHEST PAIN; Start 01/13/17 at 19:30 Miscellaneous Information 1 ea NOTE XX ; Start 01/13/17 at 20:00 Glucose (Glutose) 15 gm Q15M PRN PO DECREASED GLUCOSE; Start 01/13/17 at 20:00 Glucose (Glutose) 22.5 gm Q15M PRN PO DECREASED GLUCOSE; Start 01/13/17 at 20:00 Dextrose (D50w Syringe) 25 ml Q15M PRN IV DECREASED GLUCOSE; Start 01/13/17 at 20:00 Dextrose (D50w Syringe) 50 ml Q15M PRN IV DECREASED GLUCOSE; Start 01/13/17 at 20:00 Glucagon (Glucagen) 1 mg Q15M PRN IM DECREASED GLUCOSE; Start 01/13/17 at 20:00 Glucose (Glutose) 15 gm Q15M PRN BUCCAL DECREASED GLUCOSE; Start 01/13/17 at 20: 00 Miscellaneous Information (Pending [facility] Order For Wound Care) This patient panda... PRN PRN XX WOUND CARE; Start 01/14/17 at 11:00 Pantoprazole (Protonix Tab) 40 mg DAILY@06 PO Last administered on 01/16/17 05: 10; Admin Dose 40 MG; Start 01/15/17 at 06:00 Enoxaparin Sodium 30 mg 30 mg DAILY SC Last administered on 01/19/17 09:03; Admin Dose 30 MG; Start 01/17/17 at 09:00 Meropenem (Merrem 500 Mg/ 100 ml (Pmx)) 100 ml @ 200 mls/hr Q12 IVPB Last administered on 01/19/17 08:29; Admin Dose 200 MLS/HR; Start 01/16/17 at 21:00 Insulin Aspart NOVOLOG *MODERATE* ALGORI... Q4 SC Last administered on 09:02; Admin Dose 4 UNIT; Start 01/17/17 at 13:00 Linezolid 300 ml @ 300 mls/hr Q12 IVPB Last administered on 01/19/17 08:29; Admin Dose 300 MLS/HR; Start 01/17/17 at 22:00 Dextrose/Sodium Chloride 1,000 ml @ 20 mls/hr Q24H IV Last administered on 01/19 02:33; Admin Dose 75 MLS/HR; Start 01/18/17 at 08:00 Fluconazole/N/A (Diflucan 200 Mg/ NS (Pmx)/Evac Container) 50 ml @ 50 mls/hr Q24H IVPB Last administered on 01/18/17 18:15; Admin Dose 50 MLS/HR; Start 01/18 at 15:00 Mupirocin (Bactroban) 1 applic BID TOP ; Start 01/19/17 at 21:00; Status EARL BACON January 19, 2017 11:04
--- NOTE | 2017-01-19 11:23 | CONS ---
Date/Time of Note Date/Time of Note DATE: 01/19/17 TIME: 11:21 Consult Date/Type/Reason Admit Date/Time January 13, 2017 at 14:21 Type of Consultation: pulmonary ICU Subjective Patient stable this morning no new events awake alert oriented requesting to go home Objective Vital Signs Date Time Temp Pulse Resp B/P Pulse Ox O2 Delivery O2 Flow Rate FiO2 01/19/17 11:00 59 17 94/50 99 Nasal Cannula 2.0 01/19/17 08:00 98.8 01/18/17 07:50 30 Intake and Output 01/18/17 01/18/17 01/19/17 15:00 23:00 07:00 Intake Total 825 ml 530 ml 900 ml Output Total 450 ml 3620 ml 1275 ml Balance 375 ml -3090 ml -375 ml Exam PHYSICAL EXAMINATION: GENERAL: Chronically ill appearing lady, somnolent on nasal cannula O2. VITAL SIGNS: As above NECK: Supple. No JVD or lymphadenopathy. CARDIAC: S1, S2, no added sounds or murmurs. CHEST: Diminished air entry bilaterally. ABDOMEN: Soft, nontender. No guarding or rebound. EXTREMITIES: No cyanosis, clubbing, edema. NEUROLOGIC: Generalized weakness. Results/Medications Result Diagram: 01/19/17 0511 01/19/17 0511 Results 24 hrs Laboratory Tests Test 01/18/17 13:20 01/18/17 13:25 01/18/17 17:18 01/18/17 21:21 Bedside Glucose 147 154 114 111 Test 01/19/17 00:48 01/19/17 05:11 01/19/17 05:26 01/19/17 07:00 Bedside Glucose 176 184 White Blood Count 13.1 H Red Blood Count 3.20 L Hemoglobin 9.1 L Hematocrit 28.9 L Mean Corpuscular Volume 90.3 Mean Corpuscular Hemoglobin 28.4 L Mean Corpuscular Hemoglobin Concent 31.5 L Red Cell Distribution Width 14.9 H Platelet Count 390 Mean Platelet Volume 9.7 Neutrophils % 76.8 Lymphocytes % 11.8 L Monocytes % 9.8 Eosinophils % 0.4 Basophils % 0.4 Nucleated Red Blood Cells % 0.0 Neutrophils # 10.1 H Lymphocytes # 1.6 Monocytes # 1.3 H Eosinophils # 0.1 Basophils # 0.1 Nucleated Red Blood Cells # 0.0 Sodium Level 137 Potassium Level 4.0 Chloride Level 101 Carbon Dioxide Level 31 Anion Gap 9 Blood Urea Nitrogen 28 #H Creatinine 0.76 Glucose Level 140 # Calcium Level 7.8 L Phosphorus Level 2.4 #L Magnesium Level 1.8 Blood Gas Specimen Source Blood arterial Arterial Blood Date Drawn 01/19/2017 7:50:59 AM Arterial Blood pH (Temp corrected) 7.475 H Arterial Blood pCO2 (Temp correct) 44.7 Arterial Blood pO2 (Temp corrected) 97.0 Arterial Blood HCO3 32.2 H Arterial Blood Base Excess 7.8 H Arterial Blood Oxygen Saturation 97.4 Amor Test ACCEPTAB Arterial Blood Gas Puncture Site Right Radial Arterial Blood Carboxyhemoglobin 0.1 Arterial Blood Methemoglobin 0.3 Blood Gas A-a O2 Differential 42.7 H Oxyhemoglobin Percent 97.0 Total Hemoglobin 9.0 L Blood Gas Temperature 37.0 Blood Gas Modality NASAL CANNULA FiO2 27.0 Blood Gas Notified Whom JLD Blood Gas Notified Time 01/19/2017 8:23:41 AM Test 01/19/17 08:43 Bedside Glucose 213 Medications Current Medications Aspirin (Aspirin) 81 mg DAILY PO Last administered on 01/19/17 08:13; Admin Dose 81 MG; Start 01/14/17 at 09:00 Atorvastatin Calcium (Lipitor) 40 mg HS PO Last administered on 01/16/17 21:47 ; Admin Dose 40 MG; Start 01/13/17 at 21:00 Metoprolol Tartrate (Lopressor) 25 mg BID PO Last administered on 01/19/17 08: 14; Admin Dose 25 MG; Start 01/13/17 at 21:00 Amiodarone HCl (Cordarone) 200 mg BID PO Last administered on 01/19/17 08:14; Admin Dose 200 MG; Start 01/13/17 at 21:00 Docusate Sodium (Colace) 100 mg Q12H PO Last administered on 01/19/17 07:43; Admin Dose 100 MG; Start 01/13/17 at 19:30 Al Hydrox/Mg Hydrox/Simethicone (Mag-Al Plus) 30 ml Q4H PRN PO GASTROINTESTINAL UPSET; Start 01/13/17 at 19:30 Montelukast Sodium (Singulair) 10 mg HS NGT Last administered on 01/16/17 21:48 ; Admin Dose 10 MG; Start 01/13/17 at 21:00 Nitroglycerin (Nitroglycerin (Sl Tab) 0.4 Mg) 1 tab Q5M PRN SL CHEST PAIN; Start 01/13/17 at 19:30 Miscellaneous Information 1 ea NOTE XX ; Start 01/13/17 at 20:00 Glucose (Glutose) 15 gm Q15M PRN PO DECREASED GLUCOSE; Start 01/13/17 at 20:00 Glucose (Glutose) 22.5 gm Q15M PRN PO DECREASED GLUCOSE; Start 01/13/17 at 20:00 Dextrose (D50w Syringe) 25 ml Q15M PRN IV DECREASED GLUCOSE; Start 01/13/17 at 20:00 Dextrose (D50w Syringe) 50 ml Q15M PRN IV DECREASED GLUCOSE; Start 01/13/17 at 20:00 Glucagon (Glucagen) 1 mg Q15M PRN IM DECREASED GLUCOSE; Start 01/13/17 at 20:00 Glucose (Glutose) 15 gm Q15M PRN BUCCAL DECREASED GLUCOSE; Start 01/13/17 at 20: 00 Miscellaneous Information [facility] This patient panda... PRN PRN XX WOUND CARE; Start 01/14/17 at 11:00 Pantoprazole (Protonix Tab) 40 mg DAILY@06 PO Last administered on 01/16/17 05: 10; Admin Dose 40 MG; Start 01/15/17 at 06:00 Enoxaparin Sodium 30 mg 30 mg DAILY SC Last administered on 01/19/17 09:03; Admin Dose 30 MG; Start 01/17/17 at 09:00 Meropenem (Merrem 500 Mg/ 100 ml (Pmx)) 100 ml @ 200 mls/hr Q12 IVPB Last administered on 01/19/17 08:29; Admin Dose 200 MLS/HR; Start 01/16/17 at 21:00 Insulin Aspart NOVOLOG *MODERATE* ALGORI... Q4 SC Last administered on 09:02; Admin Dose 4 UNIT; Start 01/17/17 at 13:00 Linezolid 300 ml @ 300 mls/hr Q12 IVPB Last administered on 01/19/17 08:29; Admin Dose 300 MLS/HR; Start 01/17/17 at 22:00 Dextrose/Sodium Chloride 1,000 ml @ 20 mls/hr Q24H IV Last administered on 01/19 02:33; Admin Dose 75 MLS/HR; Start 01/18/17 at 08:00 Fluconazole/N/A (Diflucan 200 Mg/ NS (Pmx)/Evac Container) 50 ml @ 50 mls/hr Q24H IVPB Last administered on 01/18/17 18:15; Admin Dose 50 MLS/HR; Start 01/18 at 15:00 Mupirocin (Bactroban) 1 applic BID TOP ; Start 01/19/17 at 12:00 Assessment/Plan Chief Complaint/Hosp Course IMPRESSION AND PLAN: 1. Status post Hypercapnic respiratory failure, likely secondary to encephalopathy probably from infection. Congestive cardiac failure combination of systolic and diastolic dysfunction 2. Acute urinary tract infection. 3. Recent coronary artery bypass graft surgery. 4. History of coronary artery disease. 5. History of diabetes mellitus. 6. Left lower lobe pneumonia. Patient will require: 1. Antibiotics, currently on Zyvox. 2. Continue supplemental O2. 3. Noninvasive positive pressure ventilation as tolerated patient declined yesterday 4. Pulmonary toilet. 5. DVT and GI prophylaxis. 6. Lasix 40 mg twice a day 7. DC Stearns catheter Disposition Transfer to telemetry Will likely need detention facility placement Problems: JE[facility] AGEE [facility] January 19, 2017 11:22
[2017-01-19] MEDS ORDERED: MUPIROCIN 2% 22 GM OINT TOP SCH (12:00)
--- NOTE | 2017-01-19 13:18 | CONS ---
Date/Time of Note Date/Time of Note DATE: 01/19/17 TIME: 13:16 Assessment/Plan Assessment/Plan Chief Complaint/Hosp Course SUBJECTIVE: No acute events, no fevers, looks comfortable, no SOB MICROBIOLOGY: Left lower extremity wound culture grew MRSA/Enterococcus/ Corynebact. Urine cx + C alb ANTIMICROBIALS: 1. Zyvox. 2. Merrem. 3. Diflucan PHYSICAL EXAMINATION: GENERAL: This is a morbidly obese, well-developed, elderly woman who is awake, in no distress. HEENT: Head atraumatic, normocephalic. Sclerae are anicteric. Buccal mucosa dry. NECK: Supple, trachea midline. CHEST: Rise symmetrical. Breath sounds clear, diminished to bases. HEART: S1, S2. ABDOMEN: Soft. Bowel tones present. EXTREMITIES: Without cyanosis. ASSESSMENT: 1. Sepsis with fevers and leukocytosis. 2. Left lower extremity cellulitis. 3. Healthcare-associated pneumonia ?aspiration, s/p resp failure. 4. Acute renal failure. 5. Obesity. 6. Diabetes with diabetic neuropathy. 7. Acute encephalopathy 8. UTI 9. MRSA nares colonization PLAN: Remains stable, continue abx, add Bactroban to nares, f/u nephrology/ pulmonary rec-s, pending tx to tele DW RN Problems: Consultation Date/Type/Reason Admit Date/Time January 13, 2017 at 14:21 Type of Consultation: ID Exam/Review of Systems Vital Signs Vitals Vital Signs Date Time Temp Pulse Resp B/P Pulse Ox O2 Delivery O2 Flow Rate FiO2 01/19/17 12:00 58 01/19/17 12:00 103/47 Nasal Cannula 2.0 01/19/17 11:00 17 99 01/19/17 08:00 98.8 01/18/17 07:50 30 Intake and Output 01/18/17 01/18/17 01/19/17 15:00 23:00 07:00 Intake Total 825 ml 530 ml 900 ml Output Total 450 ml 3620 ml 1275 ml Balance 375 ml -3090 ml -375 ml Results Result Diagram: 01/19/17 0511 01/19/17 0511 Results 24 hrs Laboratory Tests Test 01/18/17 13:20 01/18/17 13:25 01/18/17 17:18 01/18/17 21:21 Bedside Glucose 147 154 114 111 Test 01/19/17 00:48 01/19/17 05:11 01/19/17 05:26 01/19/17 07:00 Bedside Glucose 176 184 White Blood Count 13.1 H Red Blood Count 3.20 L Hemoglobin 9.1 L Hematocrit 28.9 L Mean Corpuscular Volume 90.3 Mean Corpuscular Hemoglobin 28.4 L Mean Corpuscular Hemoglobin Concent 31.5 L Red Cell Distribution Width 14.9 H Platelet Count 390 Mean Platelet Volume 9.7 Neutrophils % 76.8 Lymphocytes % 11.8 L Monocytes % 9.8 Eosinophils % 0.4 Basophils % 0.4 Nucleated Red Blood Cells % 0.0 Neutrophils # 10.1 H Lymphocytes # 1.6 Monocytes # 1.3 H Eosinophils # 0.1 Basophils # 0.1 Nucleated Red Blood Cells # 0.0 Sodium Level 137 Potassium Level 4.0 Chloride Level 101 Carbon Dioxide Level 31 Anion Gap 9 Blood Urea Nitrogen 28 #H Creatinine 0.76 Glucose Level 140 # Calcium Level 7.8 L Phosphorus Level 2.4 #L Magnesium Level 1.8 Blood Gas Specimen Source Blood arterial Arterial Blood Date Drawn 01/19/2017 7:50:59 AM Arterial Blood pH (Temp corrected) 7.475 H Arterial Blood pCO2 (Temp correct) 44.7 Arterial Blood pO2 (Temp corrected) 97.0 Arterial Blood HCO3 32.2 H Arterial Blood Base Excess 7.8 H Arterial Blood Oxygen Saturation 97.4 Amor Test ACCEPTAB Arterial Blood Gas Puncture Site Right Radial Arterial Blood Carboxyhemoglobin 0.1 Arterial Blood Methemoglobin 0.3 Blood Gas A-a O2 Differential 42.7 H Oxyhemoglobin Percent 97.0 Total Hemoglobin 9.0 L Blood Gas Temperature 37.0 Blood Gas Modality NASAL CANNULA FiO2 27.0 Blood Gas Notified Whom JLD Blood Gas Notified Time 01/19/2017 8:23:41 AM Test 01/19/17 08:43 Bedside Glucose 213 Medications Medications Current Medications Aspirin (Aspirin) 81 mg DAILY PO Last administered on 01/19/17 08:13; Admin Dose 81 MG; Start 01/14/17 at 09:00 Atorvastatin Calcium (Lipitor) 40 mg HS PO Last administered on 01/16/17 21:47 ; Admin Dose 40 MG; Start 01/13/17 at 21:00 Metoprolol Tartrate (Lopressor) 25 mg BID PO Last administered on 01/19/17 08: 14; Admin Dose 25 MG; Start 01/13/17 at 21:00 Amiodarone HCl (Cordarone) 200 mg BID PO Last administered on 01/19/17 08:14; Admin Dose 200 MG; Start 01/13/17 at 21:00 Docusate Sodium (Colace) 100 mg Q12H PO Last administered on 01/19/17 07:43; Admin Dose 100 MG; Start 01/13/17 at 19:30 Al Hydrox/Mg Hydrox/Simethicone (Mag-Al Plus) 30 ml Q4H PRN PO GASTROINTESTINAL UPSET; Start 01/13/17 at 19:30 Montelukast Sodium (Singulair) 10 mg HS NGT Last administered on 01/16/17 21:48 ; Admin Dose 10 MG; Start 01/13/17 at 21:00 Nitroglycerin (Nitroglycerin (Sl Tab) 0.4 Mg) 1 tab Q5M PRN SL CHEST PAIN; Start 01/13/17 at 19:30 Miscellaneous Information 1 ea NOTE XX ; Start 01/13/17 at 20:00 Glucose (Glutose) 15 gm Q15M PRN PO DECREASED GLUCOSE; Start 01/13/17 at 20:00 Glucose (Glutose) 22.5 gm Q15M PRN PO DECREASED GLUCOSE; Start 01/13/17 at 20:00 Dextrose (D50w Syringe) 25 ml Q15M PRN IV DECREASED GLUCOSE; Start 01/13/17 at 20:00 Dextrose (D50w Syringe) 50 ml Q15M PRN IV DECREASED GLUCOSE; Start 01/13/17 at 20:00 Glucagon (Glucagen) 1 mg Q15M PRN IM DECREASED GLUCOSE; Start 01/13/17 at 20:00 Glucose (Glutose) 15 gm Q15M PRN BUCCAL DECREASED GLUCOSE; Start 01/13/17 at 20: 00 Miscellaneous Information (Pending [facility] Order For Wound Care) This patient panda... PRN PRN XX WOUND CARE; Start 01/14/17 at 11:00 Pantoprazole (Protonix Tab) 40 mg DAILY@06 PO Last administered on 01/16/17 05: 10; Admin Dose 40 MG; Start 01/15/17 at 06:00 Enoxaparin Sodium 30 mg 30 mg DAILY SC Last administered on 01/19/17 09:03; Admin Dose 30 MG; Start 01/17/17 at 09:00 Meropenem (Merrem 500 Mg/ 100 ml (Pmx)) 100 ml @ 200 mls/hr Q12 IVPB Last administered on 01/19/17 08:29; Admin Dose 200 MLS/HR; Start 01/16/17 at 21:00 Insulin Aspart NOVOLOG *MODERATE* ALGORI... Q4 SC Last administered on 09:02; Admin Dose 4 UNIT; Start 01/17/17 at 13:00 Linezolid 300 ml @ 300 mls/hr Q12 IVPB Last administered on 01/19/17 08:29; Admin Dose 300 MLS/HR; Start 01/17/17 at 22:00 Dextrose/Sodium Chloride 1,000 ml @ 20 mls/hr Q24H IV Last administered on 01/19 02:33; Admin Dose 75 MLS/HR; Start 01/18/17 at 08:00 Fluconazole/N/A (Diflucan 200 Mg/ NS (Pmx)/Evac Container) 50 ml @ 50 mls/hr Q24H IVPB Last administered on 01/18/17 18:15; Admin Dose 50 MLS/HR; Start 01/18 at 15:00 Mupirocin (Bactroban) 1 applic BID TOP ; Start 01/19/17 at 12:00 WESLEY LIRIANO NP January 19, 2017 13:18
--- NOTE | 2017-01-19 14:49 | CONS ---
Date/Time of Note Date/Time of Note DATE: 01/19/17 TIME: 14:48 Assessment/Plan Assessment/Plan Additional Assessment/Plan Sepsis Respiratory failure Cellulitis Multivessel coronary artery disease status post CABG Cardiomyopathy with ejection fraction 50% Acute decompensated systolic and diastolic congestive heart failure Paroxysmal atrial fibrillation Diabetes -Diuretics as blood pressure and renal function permits. Patient currently sitting in her stool and playing with it. Restart p.o. medications when cleared by speech and swallow therapist. Consultation Date/Type/Reason Admit Date/Time January 13, 2017 at 14:21 Type of Consultation: cv 24 HR Interval Summary Free Text/Dictation Denies shortness of breath, chest pain. Patient lying in her stool and playing with it Exam/Review of Systems Vital Signs Vitals Vital Signs Date Time Temp Pulse Resp B/P Pulse Ox O2 Delivery O2 Flow Rate FiO2 01/19/17 13:40 59 01/19/17 12:00 103/47 Nasal Cannula 2.0 01/19/17 11:00 17 99 01/19/17 08:00 98.8 01/18/17 07:50 30 Intake and Output 01/18/17 01/18/17 01/19/17 15:00 23:00 07:00 Intake Total 825 ml 530 ml 900 ml Output Total 450 ml 3620 ml 1275 ml Balance 375 ml -3090 ml -375 ml Exam Alert, sitting up in bed, playing with her stool, no apparent distress Head: normocephalic Respiratory: other (Coarse breath sounds bilaterally, no wheezing) Cardiovascular: regular rate and rhythm (S1-S2 heard) Gastrointestinal: bowel sounds, non-tender, soft Extremities: edema Results Result Diagram: 01/19/17 0511 01/19/17 0511 Results 24 hrs Laboratory Tests Test 01/18/17 17:18 01/18/17 21:21 01/19/17 00:48 01/19/17 05:11 Bedside Glucose 114 111 176 White Blood Count 13.1 H Red Blood Count 3.20 L Hemoglobin 9.1 L Hematocrit 28.9 L Mean Corpuscular Volume 90.3 Mean Corpuscular Hemoglobin 28.4 L Mean Corpuscular Hemoglobin Concent 31.5 L Red Cell Distribution Width 14.9 H Platelet Count 390 Mean Platelet Volume 9.7 Neutrophils % 76.8 Lymphocytes % 11.8 L Monocytes % 9.8 Eosinophils % 0.4 Basophils % 0.4 Nucleated Red Blood Cells % 0.0 Neutrophils # 10.1 H Lymphocytes # 1.6 Monocytes # 1.3 H Eosinophils # 0.1 Basophils # 0.1 Nucleated Red Blood Cells # 0.0 Sodium Level 137 Potassium Level 4.0 Chloride Level 101 Carbon Dioxide Level 31 Anion Gap 9 Blood Urea Nitrogen 28 #H Creatinine 0.76 Glucose Level 140 # Calcium Level 7.8 L Phosphorus Level 2.4 #L Magnesium Level 1.8 Test 01/19/17 05:26 01/19/17 07:00 01/19/17 08:43 01/19/17 13:38 Bedside Glucose 184 213 177 Blood Gas Specimen Source Blood arterial Arterial Blood Date Drawn 01/19/2017 7:50:59 AM Arterial Blood pH (Temp corrected) 7.475 H Arterial Blood pCO2 (Temp correct) 44.7 Arterial Blood pO2 (Temp corrected) 97.0 Arterial Blood HCO3 32.2 H Arterial Blood Base Excess 7.8 H Arterial Blood Oxygen Saturation 97.4 Amor Test ACCEPTAB Arterial Blood Gas Puncture Site Right Radial Arterial Blood Carboxyhemoglobin 0.1 Arterial Blood Methemoglobin 0.3 Blood Gas A-a O2 Differential 42.7 H Oxyhemoglobin Percent 97.0 Total Hemoglobin 9.0 L Blood Gas Temperature 37.0 Blood Gas Modality NASAL CANNULA FiO2 27.0 Blood Gas Notified Whom JLD Blood Gas Notified Time 01/19/2017 8:23:41 AM Medications Medications Current Medications Aspirin (Aspirin) 81 mg DAILY PO Last administered on 01/19/17 08:13; Admin Dose 81 MG; Start 01/14/17 at 09:00 Atorvastatin Calcium (Lipitor) 40 mg HS PO Last administered on 01/16/17 21:47 ; Admin Dose 40 MG; Start 01/13/17 at 21:00 Metoprolol Tartrate (Lopressor) 25 mg BID PO Last administered on 01/19/17 08: 14; Admin Dose 25 MG; Start 01/13/17 at 21:00 Amiodarone HCl (Cordarone) 200 mg BID PO Last administered on 01/19/17 08:14; Admin Dose 200 MG; Start 01/13/17 at 21:00 Docusate Sodium (Colace) 100 mg Q12H PO Last administered on 01/19/17 07:43; Admin Dose 100 MG; Start 01/13/17 at 19:30 Al Hydrox/Mg Hydrox/Simethicone (Mag-Al Plus) 30 ml Q4H PRN PO GASTROINTESTINAL UPSET; Start 01/13/17 at 19:30 Montelukast Sodium (Singulair) 10 mg HS NGT Last administered on 01/16/17 21:48 ; Admin Dose 10 MG; Start 01/13/17 at 21:00 Nitroglycerin (Nitroglycerin (Sl Tab) 0.4 Mg) 1 tab Q5M PRN SL CHEST PAIN; Start 01/13/17 at 19:30 Miscellaneous Information 1 ea NOTE XX ; Start 01/13/17 at 20:00 Glucose (Glutose) 15 gm Q15M PRN PO DECREASED GLUCOSE; Start 01/13/17 at 20:00 Glucose (Glutose) 22.5 gm Q15M PRN PO DECREASED GLUCOSE; Start 01/13/17 at 20:00 Dextrose (D50w Syringe) 25 ml Q15M PRN IV DECREASED GLUCOSE; Start 01/13/17 at 20:00 Dextrose (D50w Syringe) 50 ml Q15M PRN IV DECREASED GLUCOSE; Start 01/13/17 at 20:00 Glucagon (Glucagen) 1 mg Q15M PRN IM DECREASED GLUCOSE; Start 01/13/17 at 20:00 Glucose (Glutose) 15 gm Q15M PRN BUCCAL DECREASED GLUCOSE; Start 01/13/17 at 20: 00 Miscellaneous Information (Pending [facility] Order For Wound Care) This patient panda... PRN PRN XX WOUND CARE; Start 01/14/17 at 11:00 Pantoprazole (Protonix Tab) 40 mg DAILY@06 PO Last administered on 01/16/17 05: 10; Admin Dose 40 MG; Start 01/15/17 at 06:00 Enoxaparin Sodium 30 mg 30 mg DAILY SC Last administered on 01/19/17 09:03; Admin Dose 30 MG; Start 01/17/17 at 09:00 Meropenem (Merrem 500 Mg/ 100 ml (Pmx)) 100 ml @ 200 mls/hr Q12 IVPB Last administered on 01/19/17 08:29; Admin Dose 200 MLS/HR; Start 01/16/17 at 21:00 Insulin Aspart NOVOLOG *MODERATE* ALGORI... Q4 SC Last administered on 13:45; Admin Dose 2 UNIT; Start 01/17/17 at 13:00 Linezolid 300 ml @ 300 mls/hr Q12 IVPB Last administered on 01/19/17 08:29; Admin Dose 300 MLS/HR; Start 01/17/17 at 22:00 Dextrose/Sodium Chloride 1,000 ml @ 20 mls/hr Q24H IV Last administered on 01/19 13:34; Admin Dose 20 MLS/HR; Start 01/18/17 at 08:00 Fluconazole/N/A (Diflucan 200 Mg/ NS (Pmx)/Evac Container) 50 ml @ 50 mls/hr Q24H IVPB Last administered on 01/18/17 18:15; Admin Dose 50 MLS/HR; Start 01/18 at 15:00 Mupirocin (Bactroban) 1 applic BID TOP ; Start 01/19/17 at 12:00 Mupirocin (Bactroban) 1 applic BID TOP ; Start 01/19/17 at 21:00 Manuel Escudero DO January 19, 2017 14:49
[2017-01-19] MEDS: NS 100 MG IVPB SCH (18:17)
[2017-01-19] MEDS: EVAC CONTAINER IVPB SCH (18:17)
[2017-01-19] MEDS: FLUCONAZOLE IVPB SCH (18:17)
[2017-01-19] MEDS: MONTELUKAST 10 MG TAB NGT SCH (20:54)
[2017-01-19] MEDS: MEROPENEM 1 GM/100 ML (PMX) 100 ML IVPB SCH (20:54)
[2017-01-19] MEDS: ATORVASTATIN 40 MG TAB PO SCH (20:54)
[2017-01-19] MEDS: MUPIROCIN 2% 22 GM OINT TOP SCH (20:56)
[2017-01-20] VITALS (11 sets, daily range): BP systolic 123–139; BP diastolic 58–79; PULSE 60–73; RESP 18–19
[2017-01-20] MEDS: ALBUTEROL 0.083% (NEB) 2.5 MG/3 ML AMP HHN SCH ×5 (00:25→21:00)
[2017-01-20] MEDS: INSULIN ASPART [NOVOLOG] 3 ML PEN SC SCH ×6 (01:46→20:04)
[2017-01-20] MEDS ORDERED: IBUPROFEN 400 MG TAB PO PRN (03:00)
[2017-01-20] MEDS ORDERED: ACETAMINOPHEN 325 MG TAB PO PRN (03:00)
[2017-01-20] MEDS: PANTOPRAZOLE (EC) 40 MG TAB PO SCH (05:40)
[2017-01-20] MEDS: FUROSEMIDE 40 MG INJ IV SCH ×2 (05:41→17:26)
[2017-01-20 06:50] LABS: ADD SCAN DIFF NO
[2017-01-20 06:53] LABS: BASOPHIL # 0.1 10^3/ul (0.0-0.1); BASOPHILS % 0.6 % (0.0-2.0); EOSINOPHILS # 0.1 10^3/ul (0.0-0.5); EOSINOPHILS % 0.4 % (0.0-7.0); HEMATOCRIT 30.3 % (37.0-47.0); HEMOGLOBIN 9.4 g/dl (12.0-16.0); LYMPHOCYTES # 2.2 10^3/ul (0.8-2.9); LYMPHOCYTES % 12.6 % (15.0-51.0); MEAN CORPUSCULAR VOLUME 90.2 fl (82.0-101.0); MEAN PLATELET VOLUME 9.9 fl (7.4-10.4); MONOCYTE # 1.4 10^3/ul (0.3-0.9); MONOCYTES % 8.2 % (0.0-11.0); NEUTROPHIL # 13.4 10^3/ul (1.6-7.5); NEUTROPHILS % 76.9 % (39.0-77.0); PLATELET COUNT 381 10^3/UL (140-415); RED BLOOD COUNT 3.36 10^6/ul (4.20-5.40); WHITE BLOOD COUNT 17.4 10^3/ul (4.8-10.8)
[2017-01-20 07:18] LABS: POTASSIUM 3.5 mmol/L (3.5-5.1)
[2017-01-20 07:20] LABS: CREATININE 0.58 mg/dl (0.44-1.00)
[2017-01-20 07:21] LABS: CALCIUM 7.8 mg/dl (8.4-10.2); MAGNESIUM 1.5 mg/dl (1.7-2.5); PHOSPHORUS 1.6 mg/dl (2.5-4.9)
[2017-01-20] MEDS: DOCUSATE SODIUM 100 MG CAP PO SCH ×2 (07:30→20:00)
[2017-01-20] MEDS ORDERED: NEUTRA-PHOS 250 MG PACKET PO ONE (08:00)
[2017-01-20] MEDS ORDERED: MAGNESIUM SULFATE 2 GM/50 ML 50 ML IVPB ONE (08:00)
[2017-01-20] MEDS: MEROPENEM 1 GM/100 ML (PMX) 100 ML IVPB SCH ×2 (08:25→20:10)
--- NOTE | 2017-01-20 09:10 | PN ---
DATE: 01/20/2017 SUBJECTIVE: The patient was transferred from intensive care unit to telemetry, is stable. No acute e vents overnight. No fevers, chills, nausea or vomiting. OBJECTIVE: VITAL SIGNS: Blood pressure 123/58, respiration 18, pulse 63, temperature 98.6. HEENT: Head is normocephalic. NECK: Supple. HEART: Regular rate. LUNGS: Show diminished breath sounds at the base. ABDOMEN: Soft, nontender to palpation without rebound or guarding. EXTREMITIES: Negative for clubbing, cyanosis, no edema. DERMATOLOGIC: No rashes. MUSCULOSKELETAL: No joint effusions. NEUROLOGIC: No change in exam. MEDICATIONS: The patient's medications have been reviewed. LABORATORY DATA: Showed a BMP within normal limits. Calcium 7.8, phosphorus 1.6, magnesium 1.5. W mar count 17.4, hemoglobin 9.4, hematocrit 30.3, and platelet count is 381. IMAGING: Chest x-ray on January 19 shows infiltrate stable. ASSESSMENT AND PLAN: 1. Nonoliguric acute kidney injury, with previous baseline creatinine of 0.5 mg/dL. Etiology of ac jean-paul kidney injury is secondary to acute tubular necrosis. Patient's renal function has recovered. At this point, continue current treatment plan, supportive care, renally dose all meds. 2. Hypomagnesemia, hypophosphatemia. Will replete with magnesium sulfate and sodium phosphate. 3. Respiratory acidosis, resolved. 4. Volume overload secondary to congestive heart failure, diastolic dysfunction. The patient was n oted to have edema on exam. Chest x-ray shows pulmonary congestion. Will discontinue IV fluids and start the patient on low-dose diuretic therapy, monitor renal function closely. 6. Anemia. Continue to monitor H and H levels. 7. Acute encephalopathy. Will continue to observe. Etiology is likely toxic metabolic. 8. Sepsis secondary to pneumonia. Continue current antibiotic regimen. 9. Cellulitis. Continue current antibiotic regimen. 10. Hypertension. Continue current blood pressure regimen. Blood pressure is improved. 11. History of coronary artery disease, status post CABG. 12. Obesity. 13. Paroxysmal atrial fibrillation. Currently in sinus rhythm. Dictated By: BART ALBRIGHT/[place] Conf#: [id number] DID#: [id number]
[2017-01-20] MEDS: LINEZOLID 600 MG/D5W (PMX) 300 ML IVPB SCH ×2 (10:09→21:19)
[2017-01-20] MEDS: METOPROLOL 25 MG TAB PO SCH ×2 (10:10→20:10)
[2017-01-20] MEDS: FUROSEMIDE 20 MG TAB PO SCH (10:10)
[2017-01-20] MEDS: AMIODARONE 200 MG TAB PO SCH ×2 (10:11→20:10)
[2017-01-20] MEDS: MUPIROCIN 2% 22 GM OINT TOP SCH ×2 (10:11→21:19)
[2017-01-20] MEDS: ASPIRIN 81 MG TAB PO SCH (10:11)
[2017-01-20] MEDS: ENOXAPARIN 40 MG/0.4 ML SYG SC SCH (10:14)
--- NOTE | 2017-01-20 10:23 | PN ---
Date/Time of Note Date/Time of Note DATE: 01/20/17 TIME: 10:20 Assessment/Plan VTE Prophylaxis VTE Prophylaxis Intervention: LMWH Lines/Catheters IV Catheter Type (from Nrs): Peripheral IV Urinary Cath still in place: Yes Reason Cath still needed: urinary retention Assessment/Plan Chief Complaint/Hosp Course Assessment/Plan: 66 yo F who presented with SOB managed for 1. Acute Hypercapneic Resp failure on bipap: ?aspiration - sec to encephalopathy probably from infection - now improving. Evidence of CHF on chest x-ray initially. - continue broad spectrum antibiotics, lasix 2. Sepsis 2/2 L sided Persistent pneumonia and MRSA Cellulitis 3. L calf wound MRSA infection and cellulitis now with Sepsis 4. Coronary artery disease s/p CABG 12/07/2016 5. Hypertension : controlled 6. Dyslipidemia 7. Diabetes mellitus with diabetic neuropathy 8. Chronic depression: stable 9. Obesity / ?PCOS 10. Nicotine dependency 11. Hypomagnesemia - replete today 12. New onset renal failure: ?ATN from sepsis 13. Chest pain likely 2/2 #2 : improved Problems: Subjective 24 Hr Interval Summary Free Text/Dictation Pt has less SOB, no acute events overnight, out of ICU now. Exam/Review of Systems Vital Signs Vitals Vital Signs Date Time Temp Pulse Resp B/P Pulse Ox O2 Delivery O2 Flow Rate FiO2 01/20/17 08:50 62 01/20/17 08:12 20 96 Nasal Cannula 2.0 01/20/17 07:14 98.6 123/58 01/18/17 07:50 30 Intake and Output 01/19/17 01/19/17 01/20/17 15:00 23:00 07:00 Intake Total 50 ml 1150 ml 450 ml Output Total 760 ml Balance -710 ml 1150 ml 450 ml Exam GENERAL: The patient is lying in bed, sleeping HEENT: Head is normocephalic. Pupils are equal and reactive. Mucous membranes are moist. CHEST: less coarse breath sounds without wheezing. She does have a healing surgical scar from coronary artery bypass surgery. CARDIOVASCULAR: S1 and S2, no murmurs. ABDOMEN: Obese, soft, nontender, normoactive bowel sounds. EXTREMITIES: Bilateral extremities less edema. The patient does have left calf wound, the induration improving from previous surgery. Results Result Diagram: 01/20/1702 5/10/17 0602 Results 24 hrs Laboratory Tests Test 01/19/17 13:38 01/19/17 17:42 01/19/17 20:50 01/20/17 01:43 Bedside Glucose 177 140 161 162 Test 01/20/17 05:38 01/20/17 06:02 01/20/17 08:10 Bedside Glucose 166 182 White Blood Count 17.4 #H Red Blood Count 3.36 L Hemoglobin 9.4 L Hematocrit 30.3 L Mean Corpuscular Volume 90.2 Mean Corpuscular Hemoglobin 28.0 L Mean Corpuscular Hemoglobin Concent 31.0 L Red Cell Distribution Width 15.0 H Platelet Count 381 Mean Platelet Volume 9.9 Neutrophils % 76.9 Lymphocytes % 12.6 L Monocytes % 8.2 Eosinophils % 0.4 Basophils % 0.6 Nucleated Red Blood Cells % 0.0 Neutrophils # 13.4 H Lymphocytes # 2.2 Monocytes # 1.4 H Eosinophils # 0.1 Basophils # 0.1 Nucleated Red Blood Cells # 0.0 Sodium Level 140 Potassium Level 3.5 Chloride Level 101 Carbon Dioxide Level 31 Anion Gap 12 Blood Urea Nitrogen 19 # Creatinine 0.58 Glucose Level 158 Calcium Level 7.8 L Phosphorus Level 1.6 L Magnesium Level 1.5 L Medications Medications Current Medications Aspirin (Aspirin) 81 mg DAILY PO Last administered on 01/20/17 10:11; Admin Dose 81 MG; Start 01/14/17 at 09:00 Atorvastatin Calcium (Lipitor) 40 mg HS PO Last administered on 01/19/17 20:54 ; Admin Dose 40 MG; Start 01/13/17 at 21:00 Metoprolol Tartrate (Lopressor) 25 mg BID PO Last administered on 01/20/17 10: 10; Admin Dose 25 MG; Start 01/13/17 at 21:00 Amiodarone HCl (Cordarone) 200 mg BID PO Last administered on 01/20/17 10:11; Admin Dose 200 MG; Start 01/13/17 at 21:00 Docusate Sodium (Colace) 100 mg Q12H PO Last administered on 01/19/17 07:43; Admin Dose 100 MG; Start 01/13/17 at 19:30 Al Hydrox/Mg Hydrox/Simethicone (Mag-Al Plus) 30 ml Q4H PRN PO GASTROINTESTINAL UPSET; Start 01/13/17 at 19:30 Montelukast Sodium (Singulair) 10 mg HS NGT Last administered on 01/19/17 20:54 ; Admin Dose 10 MG; Start 01/13/17 at 21:00 Nitroglycerin (Nitroglycerin (Sl Tab) 0.4 Mg) 1 tab Q5M PRN SL CHEST PAIN; Start 01/13/17 at 19:30 Miscellaneous Information 1 ea NOTE XX ; Start 01/13/17 at 20:00 Glucose (Glutose) 15 gm Q15M PRN PO DECREASED GLUCOSE; Start 01/13/17 at 20:00 Glucose (Glutose) 22.5 gm Q15M PRN PO DECREASED GLUCOSE; Start 01/13/17 at 20:00 Dextrose (D50w Syringe) 25 ml Q15M PRN IV DECREASED GLUCOSE; Start 01/13/17 at 20:00 Dextrose (D50w Syringe) 50 ml Q15M PRN IV DECREASED GLUCOSE; Start 01/13/17 at 20:00 Glucagon (Glucagen) 1 mg Q15M PRN IM DECREASED GLUCOSE; Start 01/13/17 at 20:00 Glucose (Glutose) 15 gm Q15M PRN BUCCAL DECREASED GLUCOSE; Start 01/13/17 at 20: 00 Miscellaneous Information (Pending [facility] Order For Wound Care) This patient panda... PRN PRN XX WOUND CARE; Start 01/14/17 at 11:00 Pantoprazole (Protonix Tab) 40 mg DAILY@06 PO Last administered on 01/20/17 05 :40; Admin Dose 40 MG; Start 01/15/17 at 06:00 Insulin Aspart NOVOLOG *MODERATE* ALGORI... Q4 SC Last administered on 08:21; Admin Dose 4 UNIT; Start 01/17/17 at 13:00 Linezolid 300 ml @ 300 mls/hr Q12 IVPB Last administered on 01/20/17 10:09; Admin Dose 300 MLS/HR; Start 01/17/17 at 22:00 Fluconazole/N/A (Diflucan 200 Mg/ NS (Pmx)/Evac Container) 50 ml @ 50 mls/hr Q24H IVPB Last administered on 01/19/17 18:17; Admin Dose 50 MLS/HR; Start 01/18 at 15:00 Mupirocin (Bactroban) 1 applic BID TOP Last administered on 01/20/17 10:11; Admin Dose 1 APPLIC; Start 01/19/17 at 21:00 Enoxaparin Sodium 40 mg 40 mg DAILY SC Last administered on 01/20/17 10:14; Admin Dose 40 MG; Start 01/20/17 at 09:00 Meropenem (Merrem 1 Gm/100 ml (Pmx)) 100 ml @ 200 mls/hr Q12 IVPB Last administered on 01/20/17 08:25; Admin Dose 200 MLS/HR; Start 01/19/17 at 21:00 Acetaminophen (Tylenol Tab) 650 mg Q6H PRN PO PAIN AND OR ELEVATED TEMP Last administered on 01/20/17 03:05; Admin Dose 650 MG; Start 01/20/17 at 03:00 Ibuprofen (Motrin) 400 mg Q6H PRN PO PAIN OR TEMP ABOVE 38C; Start 01/20/17 at 03:00 Furosemide (Lasix) 20 mg DAILY PO Last administered on 01/20/17 10:10; Admin Dose 20 MG; Start 01/20/17 at 09:00 EARL SINGLETON January 20, 2017 10:23
--- NOTE | 2017-01-20 11:03 | CONS ---
Date/Time of Note Date/Time of Note DATE: 01/20/17 TIME: 11:01 Assessment/Plan Assessment/Plan Additional Assessment/Plan Assessment and recommendations; 1. Patient admitted for left knee abscess currently on appropriate antibiotic regimen. 2. History of recent CABG surgery with complicated postop course exacerbated by COPD exacerbation and pneumonia with marked overall clinical improvement. 3. History of hypertension. 4. Diabetes. Next Continue current treatment. Patient responding well to current treatment regimen. Consultation Date/Type/Reason Admit Date/Time January 13, 2017 at 14:21 Initial Consult Date Type of Consultation: Pulmonary 24 HR Interval Summary Free Text/Dictation Patient condition is stable. Denies any shortness of breath, chest pain, wheezing, sputum production or fever. General exam; elderly lady, awake alert currently in no distress. Exam/Review of Systems Vital Signs Vitals Vital Signs Date Time Temp Pulse Resp B/P Pulse Ox O2 Delivery O2 Flow Rate FiO2 01/20/17 08:50 62 01/20/17 08:12 20 96 Nasal Cannula 2.0 01/20/17 07:14 98.6 123/58 01/18/17 07:50 30 Intake and Output 01/19/17 01/19/17 01/20/17 15:00 23:00 07:00 Intake Total 50 ml 1150 ml 450 ml Output Total 760 ml Balance -710 ml 1150 ml 450 ml Exam HEENT exam is; supple neck, no JVD. No lymphadenopathy. Midline trachea. No thyromegaly. Patient does have multiple carious teeth. Pharynx is clear. Chest examination; clear to auscultation. S1-S2 audible, no murmurs. There is a well-healed sternal scar. Abdomen examination; soft, non-distended. No organomegaly. Extremity exam; no peripheral edema. There is a dressing applied over the left knee. [employer] examination; no focal deficit. Results Result Diagram: 01/20/17 0602 01/20/17 0602 Results 24 hrs Laboratory Tests Test 01/19/17 13:38 01/19/17 17:42 01/19/17 20:50 01/20/17 01:43 Bedside Glucose 177 140 161 162 Test 01/20/17 05:38 01/20/17 06:02 01/20/17 08:10 Bedside Glucose 166 182 White Blood Count 17.4 #H Red Blood Count 3.36 L Hemoglobin 9.4 L Hematocrit 30.3 L Mean Corpuscular Volume 90.2 Mean Corpuscular Hemoglobin 28.0 L Mean Corpuscular Hemoglobin Concent 31.0 L Red Cell Distribution Width 15.0 H Platelet Count 381 Mean Platelet Volume 9.9 Neutrophils % 76.9 Lymphocytes % 12.6 L Monocytes % 8.2 Eosinophils % 0.4 Basophils % 0.6 Nucleated Red Blood Cells % 0.0 Neutrophils # 13.4 H Lymphocytes # 2.2 Monocytes # 1.4 H Eosinophils # 0.1 Basophils # 0.1 Nucleated Red Blood Cells # 0.0 Sodium Level 140 Potassium Level 3.5 Chloride Level 101 Carbon Dioxide Level 31 Anion Gap 12 Blood Urea Nitrogen 19 # Creatinine 0.58 Glucose Level 158 Calcium Level 7.8 L Phosphorus Level 1.6 L Magnesium Level 1.5 L Medications Medications Current Medications Aspirin (Aspirin) 81 mg DAILY PO Last administered on 01/20/17 10:11; Admin Dose 81 MG; Start 01/14/17 at 09:00 Atorvastatin Calcium (Lipitor) 40 mg HS PO Last administered on 01/19/17 20:54 ; Admin Dose 40 MG; Start 01/13/17 at 21:00 Metoprolol Tartrate (Lopressor) 25 mg BID PO Last administered on 01/20/17 10: 10; Admin Dose 25 MG; Start 01/13/17 at 21:00 Amiodarone HCl (Cordarone) 200 mg BID PO Last administered on 01/20/17 10:11; Admin Dose 200 MG; Start 01/13/17 at 21:00 Docusate Sodium (Colace) 100 mg Q12H PO Last administered on 01/19/17 07:43; Admin Dose 100 MG; Start 01/13/17 at 19:30 Al Hydrox/Mg Hydrox/Simethicone (Mag-Al Plus) 30 ml Q4H PRN PO GASTROINTESTINAL UPSET; Start 01/13/17 at 19:30 Montelukast Sodium (Singulair) 10 mg HS NGT Last administered on 01/19/17 20:54 ; Admin Dose 10 MG; Start 01/13/17 at 21:00 Nitroglycerin (Nitroglycerin (Sl Tab) 0.4 Mg) 1 tab Q5M PRN SL CHEST PAIN; Start 01/13/17 at 19:30 Miscellaneous Information 1 ea NOTE XX ; Start 01/13/17 at 20:00 Glucose (Glutose) 15 gm Q15M PRN PO DECREASED GLUCOSE; Start 01/13/17 at 20:00 Glucose (Glutose) 22.5 gm Q15M PRN PO DECREASED GLUCOSE; Start 01/13/17 at 20:00 Dextrose (D50w Syringe) 25 ml Q15M PRN IV DECREASED GLUCOSE; Start 01/13/17 at 20:00 Dextrose (D50w Syringe) 50 ml Q15M PRN IV DECREASED GLUCOSE; Start 01/13/17 at 20:00 Glucagon (Glucagen) 1 mg Q15M PRN IM DECREASED GLUCOSE; Start 01/13/17 at 20:00 Glucose (Glutose) 15 gm Q15M PRN BUCCAL DECREASED GLUCOSE; Start 01/13/17 at 20: 00 Miscellaneous Information (Pending [facility] Order For Wound Care) This patient panda... PRN PRN XX WOUND CARE; Start 01/14/17 at 11:00 Pantoprazole (Protonix Tab) 40 mg DAILY@06 PO Last administered on 01/20/17 05 :40; Admin Dose 40 MG; Start 01/15/17 at 06:00 Insulin Aspart NOVOLOG *MODERATE* ALGORI... Q4 SC Last administered on 08:21; Admin Dose 4 UNIT; Start 01/17/17 at 13:00 Linezolid 300 ml @ 300 mls/hr Q12 IVPB Last administered on 01/20/17 10:09; Admin Dose 300 MLS/HR; Start 01/17/17 at 22:00 Fluconazole/N/A (Diflucan 200 Mg/ NS (Pmx)/Evac Container) 50 ml @ 50 mls/hr Q24H IVPB Last administered on 01/19/17 18:17; Admin Dose 50 MLS/HR; Start 01/18 at 15:00 Mupirocin (Bactroban) 1 applic BID TOP Last administered on 01/20/17 10:11; Admin Dose 1 APPLIC; Start 01/19/17 at 21:00 Enoxaparin Sodium 40 mg 40 mg DAILY SC Last administered on 01/20/17 10:14; Admin Dose 40 MG; Start 01/20/17 at 09:00 Meropenem (Merrem 1 Gm/100 ml (Pmx)) 100 ml @ 200 mls/hr Q12 IVPB Last administered on 01/20/17 08:25; Admin Dose 200 MLS/HR; Start 01/19/17 at 21:00 Acetaminophen (Tylenol Tab) 650 mg Q6H PRN PO PAIN AND OR ELEVATED TEMP Last administered on 01/20/17 03:05; Admin Dose 650 MG; Start 01/20/17 at 03:00 Ibuprofen (Motrin) 400 mg Q6H PRN PO PAIN OR TEMP ABOVE 38C; Start 01/20/17 at 03:00 Furosemide (Lasix) 20 mg DAILY PO Last administered on 01/20/17 10:10; Admin Dose 20 MG; Start 01/20/17 at 09:00 Insulin Detemir (Levemir) 20 unit DAILY@20 SC ; Start 01/20/17 at 20:00 WILMER DUTTON January 20, 2017 11:03
[2017-01-20] MEDS: COLLAGENASE 30 GM TUBE TOP SCH (12:00)
--- NOTE | 2017-01-20 13:50 | CONS ---
Date/Time of Note Date/Time of Note DATE: 01/20/17 TIME: 13:49 Assessment/Plan Assessment/Plan Additional Assessment/Plan Sepsis Respiratory failure Cellulitis Multivessel coronary artery disease status post CABG Cardiomyopathy with ejection fraction 50% Acute decompensated systolic and diastolic congestive heart failure Paroxysmal atrial fibrillation Diabetes -Diuretics as per our nephrology colleagues. Blood pressure trend improving. Continue aspirin, statin and beta-zacarias. Consultation Date/Type/Reason Admit Date/Time January 13, 2017 at 14:21 Type of Consultation: cv 24 HR Interval Summary Free Text/Dictation Denies shortness of breath, chest pain Exam/Review of Systems Vital Signs Vitals Vital Signs Date Time Temp Pulse Resp B/P Pulse Ox O2 Delivery O2 Flow Rate FiO2 01/20/17 12:43 68 01/20/17 12:28 2.0 01/20/17 11:22 98.0 18 132/79 96 01/20/17 08:12 Nasal Cannula 01/18/17 07:50 30 Intake and Output 01/19/17 01/19/17 01/20/17 14:59 22:59 06:59 Intake Total 125 ml 1150 ml 450 ml Output Total 760 ml Balance -635 ml 1150 ml 450 ml Exam Speaking on the phone, no apparent distress Constitutional: alert, oriented Head: normocephalic Respiratory: other (Coarse breath sounds bilaterally, no wheezing) Cardiovascular: other (S1-S2 heard), regular rate and rhythm Gastrointestinal: bowel sounds, non-tender, soft Extremities: edema Results Result Diagram: 01/20/17 0602 01/20/17 0602 Results 24 hrs Laboratory Tests Test 01/19/17 17:42 01/19/17 20:50 01/20/17 01:43 01/20/17 05:38 Bedside Glucose 140 161 162 166 Test 01/20/17 06:02 01/20/17 08:10 01/20/17 12:28 White Blood Count 17.4 #H Red Blood Count 3.36 L Hemoglobin 9.4 L Hematocrit 30.3 L Mean Corpuscular Volume 90.2 Mean Corpuscular Hemoglobin 28.0 L Mean Corpuscular Hemoglobin Concent 31.0 L Red Cell Distribution Width 15.0 H Platelet Count 381 Mean Platelet Volume 9.9 Neutrophils % 76.9 Lymphocytes % 12.6 L Monocytes % 8.2 Eosinophils % 0.4 Basophils % 0.6 Nucleated Red Blood Cells % 0.0 Neutrophils # 13.4 H Lymphocytes # 2.2 Monocytes # 1.4 H Eosinophils # 0.1 Basophils # 0.1 Nucleated Red Blood Cells # 0.0 Sodium Level 140 Potassium Level 3.5 Chloride Level 101 Carbon Dioxide Level 31 Anion Gap 12 Blood Urea Nitrogen 19 # Creatinine 0.58 Glucose Level 158 Calcium Level 7.8 L Phosphorus Level 1.6 L Magnesium Level 1.5 L Bedside Glucose 182 231 H Medications Medications Current Medications Aspirin (Aspirin) 81 mg DAILY PO Last administered on 01/20/17 10:11; Admin Dose 81 MG; Start 01/14/17 at 09:00 Atorvastatin Calcium (Lipitor) 40 mg HS PO Last administered on 01/19/17 20:54 ; Admin Dose 40 MG; Start 01/13/17 at 21:00 Metoprolol Tartrate (Lopressor) 25 mg BID PO Last administered on 01/20/17 10: 10; Admin Dose 25 MG; Start 01/13/17 at 21:00 Amiodarone HCl (Cordarone) 200 mg BID PO Last administered on 01/20/17 10:11; Admin Dose 200 MG; Start 01/13/17 at 21:00 Docusate Sodium (Colace) 100 mg Q12H PO Last administered on 01/19/17 07:43; Admin Dose 100 MG; Start 01/13/17 at 19:30 Al Hydrox/Mg Hydrox/Simethicone (Mag-Al Plus) 30 ml Q4H PRN PO GASTROINTESTINAL UPSET; Start 01/13/17 at 19:30 Montelukast Sodium (Singulair) 10 mg HS NGT Last administered on 01/19/17 20:54 ; Admin Dose 10 MG; Start 01/13/17 at 21:00 Nitroglycerin (Nitroglycerin (Sl Tab) 0.4 Mg) 1 tab Q5M PRN SL CHEST PAIN; Start 01/13/17 at 19:30 Miscellaneous Information 1 ea NOTE XX ; Start 01/13/17 at 20:00 Glucose (Glutose) 15 gm Q15M PRN PO DECREASED GLUCOSE; Start 01/13/17 at 20:00 Glucose (Glutose) 22.5 gm Q15M PRN PO DECREASED GLUCOSE; Start 01/13/17 at 20:00 Dextrose (D50w Syringe) 25 ml Q15M PRN IV DECREASED GLUCOSE; Start 01/13/17 at 20:00 Dextrose (D50w Syringe) 50 ml Q15M PRN IV DECREASED GLUCOSE; Start 01/13/17 at 20:00 Glucagon (Glucagen) 1 mg Q15M PRN IM DECREASED GLUCOSE; Start 01/13/17 at 20:00 Glucose (Glutose) 15 gm Q15M PRN BUCCAL DECREASED GLUCOSE; Start 01/13/17 at 20: 00 Miscellaneous Information ([facility] This patient panda... PRN PRN XX WOUND CARE; Start 01/14/17 at 11:00 Pantoprazole (Protonix Tab) 40 mg DAILY@06 PO Last administered on 01/20/17 05 :40; Admin Dose 40 MG; Start 01/15/17 at 06:00 Insulin Aspart NOVOLOG *MODERATE* ALGORI... Q4 SC Last administered on 12:35; Admin Dose 6 UNIT; Start 01/17/17 at 13:00 Linezolid 300 ml @ 300 mls/hr Q12 IVPB Last administered on 01/20/17 10:09; Admin Dose 300 MLS/HR; Start 01/17/17 at 22:00 Fluconazole/N/A (Diflucan 200 Mg/ NS (Pmx)/Evac Container) 50 ml @ 50 mls/hr Q24H IVPB Last administered on 01/19/17 18:17; Admin Dose 50 MLS/HR; Start 01/18 at 15:00 Mupirocin (Bactroban) 1 applic BID TOP Last administered on 01/20/17 10:11; Admin Dose 1 APPLIC; Start 01/19/17 at 21:00 Enoxaparin Sodium 40 mg 40 mg DAILY SC Last administered on 01/20/17 10:14; Admin Dose 40 MG; Start 01/20/17 at 09:00 Meropenem (Merrem 1 Gm/100 ml (Pmx)) 100 ml @ 200 mls/hr Q12 IVPB Last administered on 01/20/17 08:25; Admin Dose 200 MLS/HR; Start 01/19/17 at 21:00 Acetaminophen (Tylenol Tab) 650 mg Q6H PRN PO PAIN AND OR ELEVATED TEMP Last administered on 01/20/17 03:05; Admin Dose 650 MG; Start 01/20/17 at 03:00 Ibuprofen (Motrin) 400 mg Q6H PRN PO PAIN OR TEMP ABOVE 38C; Start 01/20/17 at 03:00 Furosemide (Lasix) 20 mg DAILY PO Last administered on 01/20/17 10:10; Admin Dose 20 MG; Start 01/20/17 at 09:00 Insulin Detemir (Levemir) 20 unit DAILY@20 SC ; Start 01/20/17 at 20:00 Collagenase (Santyl) 1 applic DAILY TOP ; Start 01/20/17 at 12:00 Manuel Escudero DO January 20, 2017 13:50
--- NOTE | 2017-01-20 14:01 | CONS ---
Date/Time of Note Date/Time of Note DATE: 01/20/17 TIME: 14:00 Assessment/Plan Assessment/Plan Chief Complaint/Hosp Course SUBJECTIVE: Tx to tele, a;ert, feels better, looks comfortable, no fevers MICROBIOLOGY: Left lower extremity wound culture grew MRSA/Enterococcus/ Corynebact. Urine cx + C alb ANTIMICROBIALS: 1. Zyvox. 2. Merrem. 3. Diflucan PHYSICAL EXAMINATION: GENERAL: This is a morbidly obese, well-developed, elderly woman who is awake, in no distress. HEENT: Head atraumatic, normocephalic. Sclerae are anicteric. Buccal mucosa dry. NECK: Supple, trachea midline. CHEST: Rise symmetrical. Breath sounds clear, diminished to bases. HEART: S1, S2. ABDOMEN: Soft. Bowel tones present. EXTREMITIES: Without cyanosis. ASSESSMENT: 1. Sepsis with fevers and leukocytosis. 2. Left lower extremity cellulitis. 3. Healthcare-associated pneumonia ?aspiration, s/p resp failure. 4. Acute renal failure. 5. Obesity. 6. Diabetes with diabetic neuropathy. 7. Acute encephalopathy 8. UTI 9. MRSA nares colonization PLAN: Remains stable, continue abx, Bactroban to nares, f/u nephrology/ pulmonary rec-s DW RN Problems: Consultation Date/Type/Reason Admit Date/Time January 13, 2017 at 14:21 Type of Consultation: id Exam/Review of Systems Vital Signs Vitals Vital Signs Date Time Temp Pulse Resp B/P Pulse Ox O2 Delivery O2 Flow Rate FiO2 01/20/17 12:43 68 01/20/17 12:28 2.0 01/20/17 11:22 98.0 18 132/79 96 01/20/17 08:12 Nasal Cannula 01/18/17 07:50 30 Intake and Output 01/19/17 01/19/17 01/20/17 14:59 22:59 06:59 Intake Total 125 ml 1150 ml 450 ml Output Total 760 ml Balance -635 ml 1150 ml 450 ml Results Result Diagram: 01/20/17 0602 01/20/17 0602 Results 24 hrs Laboratory Tests Test 01/19/17 17:42 01/19/17 20:50 01/20/17 01:43 01/20/17 05:38 Bedside Glucose 140 161 162 166 Test 01/20/17 06:02 01/20/17 08:10 01/20/17 12:28 White Blood Count 17.4 #H Red Blood Count 3.36 L Hemoglobin 9.4 L Hematocrit 30.3 L Mean Corpuscular Volume 90.2 Mean Corpuscular Hemoglobin 28.0 L Mean Corpuscular Hemoglobin Concent 31.0 L Red Cell Distribution Width 15.0 H Platelet Count 381 Mean Platelet Volume 9.9 Neutrophils % 76.9 Lymphocytes % 12.6 L Monocytes % 8.2 Eosinophils % 0.4 Basophils % 0.6 Nucleated Red Blood Cells % 0.0 Neutrophils # 13.4 H Lymphocytes # 2.2 Monocytes # 1.4 H Eosinophils # 0.1 Basophils # 0.1 Nucleated Red Blood Cells # 0.0 Sodium Level 140 Potassium Level 3.5 Chloride Level 101 Carbon Dioxide Level 31 Anion Gap 12 Blood Urea Nitrogen 19 # Creatinine 0.58 Glucose Level 158 Calcium Level 7.8 L Phosphorus Level 1.6 L Magnesium Level 1.5 L Bedside Glucose 182 231 H Medications Medications Current Medications Aspirin (Aspirin) 81 mg DAILY PO Last administered on 01/20/17 10:11; Admin Dose 81 MG; Start 01/14/17 at 09:00 Atorvastatin Calcium (Lipitor) 40 mg HS PO Last administered on 01/19/17 20:54 ; Admin Dose 40 MG; Start 01/13/17 at 21:00 Metoprolol Tartrate (Lopressor) 25 mg BID PO Last administered on 01/20/17 10: 10; Admin Dose 25 MG; Start 01/13/17 at 21:00 Amiodarone HCl (Cordarone) 200 mg BID PO Last administered on 01/20/17 10:11; Admin Dose 200 MG; Start 01/13/17 at 21:00 Docusate Sodium (Colace) 100 mg Q12H PO Last administered on 01/19/17 07:43; Admin Dose 100 MG; Start 01/13/17 at 19:30 Al Hydrox/Mg Hydrox/Simethicone (Mag-Al Plus) 30 ml Q4H PRN PO GASTROINTESTINAL UPSET; Start 01/13/17 at 19:30 Montelukast Sodium (Singulair) 10 mg HS NGT Last administered on 01/19/17 20:54 ; Admin Dose 10 MG; Start 01/13/17 at 21:00 Nitroglycerin (Nitroglycerin (Sl Tab) 0.4 Mg) 1 tab Q5M PRN SL CHEST PAIN; Start 01/13/17 at 19:30 Miscellaneous Information 1 ea NOTE XX ; Start 01/13/17 at 20:00 Glucose (Glutose) 15 gm Q15M PRN PO DECREASED GLUCOSE; Start 01/13/17 at 20:00 Glucose (Glutose) 22.5 gm Q15M PRN PO DECREASED GLUCOSE; Start 01/13/17 at 20:00 Dextrose (D50w Syringe) 25 ml Q15M PRN IV DECREASED GLUCOSE; Start 01/13/17 at 20:00 Dextrose (D50w Syringe) 50 ml Q15M PRN IV DECREASED GLUCOSE; Start 01/13/17 at 20:00 Glucagon (Glucagen) 1 mg Q15M PRN IM DECREASED GLUCOSE; Start 01/13/17 at 20:00 Glucose (Glutose) 15 gm Q15M PRN BUCCAL DECREASED GLUCOSE; Start 01/13/17 at 20: 00 Miscellaneous Information (Pending [facility] Order For Wound Care) This patient panda... PRN PRN XX WOUND CARE; Start 01/14/17 at 11:00 Pantoprazole (Protonix Tab) 40 mg DAILY@06 PO Last administered on 01/20/17 05 :40; Admin Dose 40 MG; Start 01/15/17 at 06:00 Insulin Aspart NOVOLOG *MODERATE* ALGORI... Q4 SC Last administered on 12:35; Admin Dose 6 UNIT; Start 01/17/17 at 13:00 Linezolid 300 ml @ 300 mls/hr Q12 IVPB Last administered on 01/20/17 10:09; Admin Dose 300 MLS/HR; Start 01/17/17 at 22:00 Fluconazole/N/A (Diflucan 200 Mg/ NS (Pmx)/Evac Container) 50 ml @ 50 mls/hr Q24H IVPB Last administered on 01/19/17 18:17; Admin Dose 50 MLS/HR; Start 01/18 at 15:00 Mupirocin (Bactroban) 1 applic BID TOP Last administered on 01/20/17 10:11; Admin Dose 1 APPLIC; Start 01/19/17 at 21:00 Enoxaparin Sodium 40 mg 40 mg DAILY SC Last administered on 01/20/17 10:14; Admin Dose 40 MG; Start 01/20/17 at 09:00 Meropenem (Merrem 1 Gm/100 ml (Pmx)) 100 ml @ 200 mls/hr Q12 IVPB Last administered on 01/20/17 08:25; Admin Dose 200 MLS/HR; Start 01/19/17 at 21:00 Acetaminophen (Tylenol Tab) 650 mg Q6H PRN PO PAIN AND OR ELEVATED TEMP Last administered on 01/20/17 03:05; Admin Dose 650 MG; Start 01/20/17 at 03:00 Ibuprofen (Motrin) 400 mg Q6H PRN PO PAIN OR TEMP ABOVE 38C; Start 01/20/17 at 03:00 Furosemide (Lasix) 20 mg DAILY PO Last administered on 01/20/17 10:10; Admin Dose 20 MG; Start 01/20/17 at 09:00 Insulin Detemir (Levemir) 20 unit DAILY@20 SC ; Start 01/20/17 at 20:00 Collagenase (Santyl) 1 applic DAILY TOP ; Start 01/20/17 at 12:00 WESLEY LIRIANO NP January 20, 2017 14:01
[2017-01-20] MEDS: EVAC CONTAINER IVPB SCH (15:00)
[2017-01-20] MEDS: FLUCONAZOLE IVPB SCH (15:00)
[2017-01-20] MEDS: NS 100 MG IVPB SCH (15:00)
[2017-01-20] MEDS: INSULIN DETEMIR [LEVEMIR] 3ML CART SC SCH (20:03)
[2017-01-20] MEDS: ATORVASTATIN 40 MG TAB PO SCH (20:10)
[2017-01-20] MEDS: MONTELUKAST 10 MG TAB PO SCH (20:11)
[2017-01-21] VITALS (13 sets, daily range): BP systolic 125–170; BP diastolic 61–74; PULSE 63–86; RESP 17–20
[2017-01-21] MEDS: INSULIN ASPART [NOVOLOG] 3 ML PEN SC SCH ×4 (01:59→12:21)
[2017-01-21] MEDS: ALBUTEROL 0.083% (NEB) 2.5 MG/3 ML AMP HHN SCH ×6 (02:34→20:11)
[2017-01-21] MEDS: FUROSEMIDE 40 MG INJ IV SCH (05:23)
[2017-01-21] MEDS: PANTOPRAZOLE (EC) 40 MG TAB PO SCH (05:23)
[2017-01-21 08:14] LABS: ADD SCAN DIFF NO
[2017-01-21] MEDS: ASPIRIN 81 MG TAB PO SCH (08:42)
[2017-01-21] MEDS: DOCUSATE SODIUM 100 MG CAP PO SCH ×2 (08:42→20:19)
[2017-01-21] MEDS: AMIODARONE 200 MG TAB PO SCH (08:43)
[2017-01-21] MEDS: FUROSEMIDE 20 MG TAB PO SCH (08:43)
[2017-01-21] MEDS: METOPROLOL 25 MG TAB PO SCH ×2 (08:43→20:20)
[2017-01-21] MEDS: MEROPENEM 1 GM/100 ML (PMX) 100 ML IVPB SCH ×2 (08:44→20:33)
[2017-01-21] MEDS: MUPIROCIN 2% 22 GM OINT TOP SCH ×2 (08:44→20:38)
[2017-01-21] MEDS: COLLAGENASE 30 GM TUBE TOP SCH (08:44)
--- NOTE | 2017-01-21 08:48 | PN ---
DATE: SUBJECTIVE: The patient is stable, no acute events overnight. No fevers, chills, nausea, vomiting, no shortness of breath. OBJECTIVE: VITAL SIGNS: Blood pressure is 133/64, respirations 19, pulse 69, temperature 98.2. HEENT: Head is normocephalic. NECK: Supple. HEART: Regular rate. LUNGS: Show diminished breath sounds at the base. ABDOMEN: Soft, nontender to palpation. No rebound or guarding. EXTREMITIES: Negative for clubbing, cyanosis. There is trace edema. DERMATOLOGIC: No rashes. MUSCULOSKELETAL: No joint effusions. NEUROLOGIC: No change in exam. MEDICATIONS: The patient's medications have been reviewed. LABORATORY DATA: Pending. ASSESSMENT AND PLAN: 1. Nonoliguric acute kidney injury with previous baseline creatinine of 0.5 mg/dL. The etiology of acute kidney injury is secondary to acute tubular necrosis. The patient's renal function is recove ring. At this point, continue treatment plan, supportive care, renally dose all medications. 2. Hypomagnesemia, hypophosphatemia, continue to monitor and replete. 3. Volume overload secondary to congestive heart failure, diastolic dysfunction. The patient has b een started on low dose diuretic therapy. We will continue to monitor electrolytes and renal functi on closely. 4. Anemia. Continue to monitor H and H levels. 5. Ischemic encephalopathy. Continue to observe. Etiology is likely toxic metabolic. 6. Sepsis and pneumonia. Continue current antibiotic regimen. 7. Cellulitis. Continue current treatment plan. 8. Hypertension. Continue current blood pressure regimen. 9. History of coronary artery disease, status post coronary artery bypass graft. 10. Paroxysmal atrial fibrillation, in sinus rhythm. 11. Obesity. Dictated By: BART ALBRIGHT/[place] Conf#: [id number] DID#: [id number]
[2017-01-21 08:52] LABS: CALCIUM 7.9 mg/dl (8.4-10.2); CREATININE 0.48 mg/dl (0.44-1.00); MAGNESIUM 1.5 mg/dl (1.7-2.5); PHOSPHORUS 2.2 mg/dl (2.5-4.9); POTASSIUM 3.7 mmol/L (3.5-5.1)
[2017-01-21] MEDS: ENOXAPARIN 40 MG/0.4 ML SYG SC SCH (09:23)
[2017-01-21] MEDS: LINEZOLID 600 MG/D5W (PMX) 300 ML IVPB SCH ×2 (09:52→21:38)
[2017-01-21] MEDS ORDERED: MAGNESIUM SULFATE 2 GM/50 ML 50 ML IVPB ONE ×2 (10:30→17:00)
[2017-01-21 10:52] LABS: BASOPHIL # 0.1 10^3/ul (0.0-0.1); BASOPHILS % 0.6 % (0.0-2.0); EOSINOPHILS # 0.1 10^3/ul (0.0-0.5); EOSINOPHILS % 0.4 % (0.0-7.0); HEMATOCRIT 31.2 % (37.0-47.0); HEMOGLOBIN 9.8 g/dl (12.0-16.0); LYMPHOCYTES # 2.4 10^3/ul (0.8-2.9); LYMPHOCYTES % 12.9 % (15.0-51.0); MEAN CORPUSCULAR HEMOGLOBIN 28.4 pg (29.0-33.0); MEAN CORPUSCULAR HGB CONC 31.4 g/dl (32.0-37.0); MEAN CORPUSCULAR VOLUME 90.4 fl (82.0-101.0); MEAN PLATELET VOLUME 9.6 fl (7.4-10.4); MONOCYTE # 1.5 10^3/ul (0.3-0.9); MONOCYTES % 7.7 % (0.0-11.0); NEUTROPHIL # 14.6 10^3/ul (1.6-7.5); PLATELET COUNT 342 10^3/UL (140-415); RED BLOOD COUNT 3.45 10^6/ul (4.20-5.40); RED CELL DISTRIBUTION WIDTH 15.1 % (11.5-14.5); WHITE BLOOD COUNT 18.9 10^3/ul (4.8-10.8)
--- NOTE | 2017-01-21 11:08 | PDOCDIS ---
Discharge Instructions CONDITION Patient Condition: Stable HOME CARE INSTRUCTIONS: Special Diet: soft carb controlled EARL SINGLETON January 21, 2017 11:08
--- NOTE | 2017-01-21 11:51 | DS ---
DATE OF ADMISSION: 01/13/2017 DATE OF DISCHARGE: 01/21/2017 A 66-year-old female originally admitted on 01/13/2017 being discharged to alf facility 01/21/2017. HOSPITAL COURSE: The patient came in with chest pain symptoms. She was seen by multiple specialists throughout this hospital stay including a renal team, pulmonary team, infectious disease team, cardiology team. She was actually found with acute hypercapnic respiratory failure. She was placed on BiPAP. There was thought to be an aspiration component as well. She was treated for sepsis as well secondary to pneumonia and also a methicillin-resistant staph aureus cellulitis, initially placed on antibiotics for that. She spent some time in the intensive care unit. Over the course of her hospital stay, her breathing symptoms slowly improved. She was eventually able to be transferred out of the intensive care unit, continued on antibiotics and breathing treatments as well. The patient was also evaluated by our cardiothoracic surgery team as she had undergone a CABG procedure on 12/07/2016, and not on this admission but on a prior admission, so she was monitored for that as far as recovery. Her symptoms slowly improved. She was eventually able to work with physical therapy who recommended alf facility placement. The patient is contemplating going there today. The patient's vital signs are stable. She was able to ambulate and tolerate a p.o. diet. She had slight leukocytosis on the day of discharge, but again no fevers. If she decides to go to alf facility today, she will be discharged there today in improved condition. She has also had Bactroban to the nares. DISCHARGE MEDICATIONS: If she goes to today, she will be sent with: 1. Tylenol 650 q.6h. p.r.n. 2. Milk of Magnesia 30 mL p.o. q.4 p.r.n. 3. Proventil nebulizers q.4h. 4. Amiodarone 200 mg b.i.d. 5. Aspirin 81 mg daily. 6. Lipitor 40 mg at bedtime. 7. Santyl apply topically daily. 8. Colace 100 mg q.12h. 9. Lovenox 40 mg subcu daily. 11. Lasix 20 mg p.o. daily. 12. Motrin 400 mg q.6h. p.r.n. 13. NovoLog insulin sliding scale, moderate. 14. Levemir 20 units subq daily. 15. Flagyl 500 mg PO TID x 7 days 16. Magnesium sulfate 2 grams x1 today. 18. Lopressor 25 mg b.i.d. 19. Singulair 10 mg at bedtime. 20. Bactroban apply topically b.i.d. 21. Nitroglycerin 0.4 mg sublingual every 5 minutes p.r.n. 22. Protonix 40 mg daily. 23. Ambien 5 mg at bedtime p.r.n. FOLLOWUP: She will need to follow up with primary care doctor in the clinic the next 1 to 2 weeks. FINAL DIAGNOSES: 1. Shortness of breath, chest pain secondary to acute hypercapnic respiratory failure on BiPAP, also secondary to aspiration pneumonia, treated with antibiotics. 2. Sepsis secondary to left sided persistent pneumonia, aspiration, methicillin -resistant staph aureus cellulitis, status post antibiotic treatment. 3. Left calf wound with MRSA infection, now improved. 4. History of coronary artery bypass grafting on 12/07/2016. 5. Essential hypertension. 6. High cholesterol. 7. Type 2 diabetes with diabetic neuropathy. 8. Chronic depression, stable. 9. Obesity. 10. Nicotine dependency, is counseled cessation. 11. Renal insufficiency, resolved. Time spent discharging patient 50 minutes. Dictated By: EARL ROBLERO Conf#: [id number] DID#: [id number] MTDD
[2017-01-21] MEDS ORDERED: POTASSIUM PHOSPHATE 20 MEQ in SOD CHLORIDE 0.9% 250 ML IVPB ONE (12:00)
--- NOTE | 2017-01-21 12:34 | CONS ---
Date/Time of Note Date/Time of Note DATE: 01/21/17 TIME: 12:33 Consult Date/Type/Reason Admit Date/Time January 13, 2017 at 14:21 Type of Consultation: Pulmonary Subjective Patient comfortable today no respiratory distress Objective Vital Signs Date Time Temp Pulse Resp B/P Pulse Ox O2 Delivery O2 Flow Rate FiO2 01/21/17 12:00 63 01/21/17 11:43 99.4 20 129/61 100 01/21/17 09:13 Nasal Cannula 2.0 01/18/17 07:50 30 Intake and Output 01/20/17 01/20/17 01/21/17 15:00 23:00 07:00 Intake Total 1250 ml 300 ml Output Total 4 ml Balance 1246 ml 300 ml Exam VITAL SIGNS: per chart NECK: Supple. No JVD or lymphadenopathy. CARDIAC EXAM: S1, S2. No added sounds or murmurs. CHEST: clear bilaterally, No added sounds, rales or wheezes ABDOMEN: Soft, nontender. No guarding or rebound. EXTREMITIES: No cyanosis, clubbing or edema. NEUROLOGIC: Generalized weakness. No focal deficits. Results/Medications Result Diagram: 01/21/1771901/21/17719 Results 24 hrs Laboratory Tests Test 01/20/17 17:25 01/20/17 19:59 01/21/17 01:48 01/21/17 05:27 Bedside Glucose 141 163 150 111 Test 01/21/17 07:20 01/21/17 08:38 01/21/17 12:01 White Blood Count 18.9 H Red Blood Count 3.45 L Hemoglobin 9.8 L Hematocrit 31.2 L Mean Corpuscular Volume 90.4 Mean Corpuscular Hemoglobin 28.4 L Mean Corpuscular Hemoglobin Concent 31.4 L Red Cell Distribution Width 15.1 H Platelet Count 342 Mean Platelet Volume 9.6 Neutrophils % 77.0 Lymphocytes % 12.9 L Monocytes % 7.7 Eosinophils % 0.4 Basophils % 0.6 Nucleated Red Blood Cells % 0.0 Neutrophils # 14.6 H Lymphocytes # 2.4 Monocytes # 1.5 H Eosinophils # 0.1 Basophils # 0.1 Nucleated Red Blood Cells # 0.0 Sodium Level 137 Potassium Level 3.7 Chloride Level 103 Carbon Dioxide Level 31 Anion Gap 7 L Blood Urea Nitrogen 13 Creatinine 0.48 Glucose Level 102 # Calcium Level 7.9 L Phosphorus Level 2.2 L Magnesium Level 1.5 L Bedside Glucose 119 146 Medications Current Medications Aspirin (Aspirin) 81 mg DAILY PO Last administered on 01/21/17 08:42; Admin Dose 81 MG; Start 01/14/17 at 09:00 Atorvastatin Calcium (Lipitor) 40 mg HS PO Last administered on 01/20/17 20:10 ; Admin Dose 40 MG; Start 01/13/17 at 21:00 Metoprolol Tartrate (Lopressor) 25 mg BID PO Last administered on 01/21/17 08: 43; Admin Dose 25 MG; Start 01/13/17 at 21:00 Amiodarone HCl (Cordarone) 200 mg BID PO Last administered on 01/21/17 08:43; Admin Dose 200 MG; Start 01/13/17 at 21:00 Docusate Sodium (Colace) 100 mg Q12H PO Last administered on 01/21/17 08:42; Admin Dose 100 MG; Start 01/13/17 at 19:30 Al Hydrox/Mg Hydrox/Simethicone (Mag-Al Plus) 30 ml Q4H PRN PO GASTROINTESTINAL UPSET; Start 01/13/17 at 19:30 Nitroglycerin (Nitroglycerin (Sl Tab) 0.4 Mg) 1 tab Q5M PRN SL CHEST PAIN; Start 01/13/17 at 19:30 Miscellaneous Information 1 ea NOTE XX ; Start 01/13/17 at 20:00 Glucose (Glutose) 15 gm Q15M PRN PO DECREASED GLUCOSE; Start 01/13/17 at 20:00 Glucose (Glutose) 22.5 gm Q15M PRN PO DECREASED GLUCOSE; Start 01/13/17 at 20:00 Dextrose (D50w Syringe) 25 ml Q15M PRN IV DECREASED GLUCOSE; Start 01/13/17 at 20:00 Dextrose (D50w Syringe) 50 ml Q15M PRN IV DECREASED GLUCOSE; Start 01/13/17 at 20:00 Glucagon (Glucagen) 1 mg Q15M PRN IM DECREASED GLUCOSE; Start 01/13/17 at 20:00 Glucose (Glutose) 15 gm Q15M PRN BUCCAL DECREASED GLUCOSE; Start 01/13/17 at 20: 00 Miscellaneous Information (Pending [facility] Order For Wound Care) This patient panda... PRN PRN XX WOUND CARE; Start 01/14/17 at 11:00 Pantoprazole (Protonix Tab) 40 mg DAILY@06 PO Last administered on 01/21/17 05 :23; Admin Dose 40 MG; Start 01/15/17 at 06:00 Insulin Aspart NOVOLOG *MODERATE* ALGORI... Q4 SC Last administered on 12:21; Admin Dose 2 UNIT; Start 01/17/17 at 13:00 Linezolid 300 ml @ 300 mls/hr Q12 IVPB Last administered on 01/21/17 09:52; Admin Dose 300 MLS/HR; Start 01/17/17 at 22:00 Fluconazole/N/A (Diflucan 200 Mg/ NS (Pmx)/Evac Container) 50 ml @ 50 mls/hr Q24H IVPB Last administered on 01/20/17 15:00; Admin Dose 50 MLS/HR; Start 01/18/17 at 15:00 Mupirocin (Bactroban) 1 applic BID TOP Last administered on 01/21/17 08:44; Admin Dose 1 APPLIC; Start 01/19/17 at 21:00 Enoxaparin Sodium 40 mg 40 mg DAILY SC Last administered on 01/21/17 09:23; Admin Dose 40 MG; Start 01/20/17 at 09:00 Meropenem (Merrem 1 Gm/100 ml (Pmx)) 100 ml @ 200 mls/hr Q12 IVPB Last administered on 01/21/17 08:44; Admin Dose 200 MLS/HR; Start 01/19/17 at 21:00 Acetaminophen (Tylenol Tab) 650 mg Q6H PRN PO PAIN AND OR ELEVATED TEMP Last administered on 01/20/17 03:05; Admin Dose 650 MG; Start 01/20/17 at 03:00 Ibuprofen (Motrin) 400 mg Q6H PRN PO PAIN OR TEMP ABOVE 38C; Start 01/20/17 at 03:00 Furosemide (Lasix) 20 mg DAILY PO Last administered on 01/21/17 08:43; Admin Dose 20 MG; Start 01/20/17 at 09:00 Insulin Detemir (Levemir) 20 unit DAILY@20 SC Last administered on 01/20/17 20 :03; Admin Dose 20 UNIT; Start 01/20/17 at 20:00 Collagenase (Santyl) 1 applic DAILY TOP Last administered on 01/21/17 08:44; Admin Dose 1 APPLIC; Start 01/20/17 at 12:00 Montelukast Sodium 10 mg 10 mg HS PO Last administered on 01/20/17 20:11; Admin Dose 10 MG; Start 01/20/17 at 21:00 Potassium Phosphate/Sodium Chloride (K Phos (Meq)/NS) 254.5455 ml @ 63.636 m... ONCE ONCE IVPB Last administered on 01/21/17 12:31; Admin Dose 63.636 MLS/HR; Start 01/21/17 at 12:00; Stop 01/21/17 at 15:59 Assessment/Plan Chief Complaint/Hosp Course IMPRESSION AND PLAN: 1. Status post Hypercapnic respiratory failure, likely secondary to encephalopathy probably from infection. Congestive cardiac failure combination of systolic and diastolic dysfunction 2. Acute urinary tract infection. 3. Recent coronary artery bypass graft surgery. 4. History of coronary artery disease. 5. History of diabetes mellitus. 6. Left lower lobe pneumonia. Patient will require: 1. Antibiotics, currently on Zyvox. 2. Continue supplemental O2. 3. Noninvasive positive pressure ventilation at night if possible 4. Pulmonary toilet. 5. DVT and GI prophylaxis. 6. Diuretics as tolerated Disposition Transfer to telemetry Will likely need shelter facility placement Problems: JEFE AGEE MD, [facility] January 21, 2017 12:34
--- NOTE | 2017-01-21 13:39 | CONS ---
Date/Time of Note Date/Time of Note DATE: 01/21/17 TIME: 13:35 Assessment/Plan Assessment/Plan Chief Complaint/Hosp Course SUBJECTIVE: No acute events, alert, feels ok, looks comfortable, no fevers MICROBIOLOGY: Left lower extremity wound culture grew MRSA/Enterococcus/ Corynebact. Urine cx + C alb ANTIMICROBIALS: 1. Zyvox. 2. Merrem. 3. Diflucan PHYSICAL EXAMINATION: GENERAL: This is a morbidly obese, well-developed, elderly woman who is awake, in no distress. HEENT: Head atraumatic, normocephalic. Sclerae are anicteric. Buccal mucosa dry. NECK: Supple, trachea midline. CHEST: Rise symmetrical. Breath sounds clear, diminished to bases. HEART: S1, S2. ABDOMEN: Soft. Bowel tones present. EXTREMITIES: Without cyanosis. ASSESSMENT: 1. S/p sepsis with fevers and leukocytosis. 2. Left lower extremity cellulitis. 3. Healthcare-associated pneumonia ?aspiration, s/p resp failure. 4. Acute renal failure. 5. Obesity. 6. Diabetes with diabetic neuropathy. 7. Acute encephalopathy 8. UTI 9. MRSA nares colonization PLAN: Remains stable, will add empiric Flagyl for leukocytosis and frequent stools, send stool for C dif, continue abx, Bactroban to nares, f/u nephrology/ pulmonary rec-s ANTONETTE RN Problems: Consultation Date/Type/Reason Admit Date/Time January 13, 2017 at 14:21 Type of Consultation: ID Exam/Review of Systems Vital Signs Vitals Vital Signs Date Time Temp Pulse Resp B/P Pulse Ox O2 Delivery O2 Flow Rate FiO2 01/21/17 13:17 73 18 98 Nasal Cannula 2.0 01/21/17 11:43 99.4 129/61 01/18/17 07:50 30 Intake and Output 01/20/17 01/20/17 01/21/17 15:00 23:00 07:00 Intake Total 1250 ml 300 ml Output Total 4 ml Balance 1246 ml 300 ml Results Result Diagram: 01/21/17 0720 01/21/17 0720 Results 24 hrs Laboratory Tests Test 01/20/17 17:25 01/20/17 19:59 01/21/17 01:48 01/21/17 05:27 Bedside Glucose 141 163 150 111 Test 01/21/17 07:20 01/21/17 08:38 01/21/17 12:01 White Blood Count 18.9 H Red Blood Count 3.45 L Hemoglobin 9.8 L Hematocrit 31.2 L Mean Corpuscular Volume 90.4 Mean Corpuscular Hemoglobin 28.4 L Mean Corpuscular Hemoglobin Concent 31.4 L Red Cell Distribution Width 15.1 H Platelet Count 342 Mean Platelet Volume 9.6 Neutrophils % 77.0 Lymphocytes % 12.9 L Monocytes % 7.7 Eosinophils % 0.4 Basophils % 0.6 Nucleated Red Blood Cells % 0.0 Neutrophils # 14.6 H Lymphocytes # 2.4 Monocytes # 1.5 H Eosinophils # 0.1 Basophils # 0.1 Nucleated Red Blood Cells # 0.0 Sodium Level 137 Potassium Level 3.7 Chloride Level 103 Carbon Dioxide Level 31 Anion Gap 7 L Blood Urea Nitrogen 13 Creatinine 0.48 Glucose Level 102 # Calcium Level 7.9 L Phosphorus Level 2.2 L Magnesium Level 1.5 L Bedside Glucose 119 146 Medications Medications Current Medications Aspirin (Aspirin) 81 mg DAILY PO Last administered on 01/21/17 08:42; Admin Dose 81 MG; Start 01/14/17 at 09:00 Atorvastatin Calcium (Lipitor) 40 mg HS PO Last administered on 01/20/17 20:10 ; Admin Dose 40 MG; Start 01/13/17 at 21:00 Metoprolol Tartrate (Lopressor) 25 mg BID PO Last administered on 01/21/17 08: 43; Admin Dose 25 MG; Start 01/13/17 at 21:00 Amiodarone HCl (Cordarone) 200 mg BID PO Last administered on 01/21/17 08:43; Admin Dose 200 MG; Start 01/13/17 at 21:00 Docusate Sodium (Colace) 100 mg Q12H PO Last administered on 01/21/17 08:42; Admin Dose 100 MG; Start 01/13/17 at 19:30 Al Hydrox/Mg Hydrox/Simethicone (Mag-Al Plus) 30 ml Q4H PRN PO GASTROINTESTINAL UPSET; Start 01/13/17 at 19:30 Nitroglycerin (Nitroglycerin (Sl Tab) 0.4 Mg) 1 tab Q5M PRN SL CHEST PAIN; Start 01/13/17 at 19:30 Miscellaneous Information 1 ea NOTE XX ; Start 01/13/17 at 20:00 Glucose (Glutose) 15 gm Q15M PRN PO DECREASED GLUCOSE; Start 01/13/17 at 20:00 Glucose (Glutose) 22.5 gm Q15M PRN PO DECREASED GLUCOSE; Start 01/13/17 at 20:00 Dextrose (D50w Syringe) 25 ml Q15M PRN IV DECREASED GLUCOSE; Start 01/13/17 at 20:00 Dextrose (D50w Syringe) 50 ml Q15M PRN IV DECREASED GLUCOSE; Start 01/13/17 at 20:00 Glucagon (Glucagen) 1 mg Q15M PRN IM DECREASED GLUCOSE; Start 01/13/17 at 20:00 Glucose (Glutose) 15 gm Q15M PRN BUCCAL DECREASED GLUCOSE; Start 01/13/17 at 20: 00 Miscellaneous Information (Pending Santyl Order For Wound Care) This patient panda... PRN PRN XX WOUND CARE; Start 01/14/17 at 11:00 Pantoprazole (Protonix Tab) 40 mg DAILY@06 PO Last administered on 01/21/17 05 :23; Admin Dose 40 MG; Start 01/15/17 at 06:00 Insulin Aspart NOVOLOG *MODERATE* ALGORI... Q4 SC Last administered on 12:21; Admin Dose 2 UNIT; Start 01/17/17 at 13:00 Linezolid 300 ml @ 300 mls/hr Q12 IVPB Last administered on 01/21/17 09:52; Admin Dose 300 MLS/HR; Start 01/17/17 at 22:00 Fluconazole/N/A (Diflucan 200 Mg/ NS (Pmx)/Evac Container) 50 ml @ 50 mls/hr Q24H IVPB Last administered on 01/20/17 15:00; Admin Dose 50 MLS/HR; Start 01/18/17 at 15:00 Mupirocin (Bactroban) 1 applic BID TOP Last administered on 01/21/17 08:44; Admin Dose 1 APPLIC; Start 01/19/17 at 21:00 Enoxaparin Sodium 40 mg 40 mg DAILY SC Last administered on 01/21/17 09:23; Admin Dose 40 MG; Start 01/20/17 at 09:00 Meropenem (Merrem 1 Gm/100 ml (Pmx)) 100 ml @ 200 mls/hr Q12 IVPB Last administered on 01/21/17 08:44; Admin Dose 200 MLS/HR; Start 01/19/17 at 21:00 Acetaminophen (Tylenol Tab) 650 mg Q6H PRN PO PAIN AND OR ELEVATED TEMP Last administered on 01/20/17 03:05; Admin Dose 650 MG; Start 01/20/17 at 03:00 Ibuprofen (Motrin) 400 mg Q6H PRN PO PAIN OR TEMP ABOVE 38C; Start 01/20/17 at 03:00 Furosemide (Lasix) 20 mg DAILY PO Last administered on 01/21/17 08:43; Admin Dose 20 MG; Start 01/20/17 at 09:00 Insulin Detemir (Levemir) 20 unit DAILY@20 SC Last administered on 01/20/17 20 :03; Admin Dose 20 UNIT; Start 01/20/17 at 20:00 Collagenase (Santyl) 1 applic DAILY TOP Last administered on 01/21/17 08:44; Admin Dose 1 APPLIC; Start 01/20/17 at 12:00 Montelukast Sodium 10 mg 10 mg HS PO Last administered on 01/20/17 20:11; Admin Dose 10 MG; Start 01/20/17 at 21:00 Potassium Phosphate/Sodium Chloride (K Phos (Meq)/NS) 254.5455 ml @ 63.636 m... ONCE ONCE IVPB Last administered on 01/21/17 12:31; Admin Dose 63.636 MLS/HR; Start 01/21/17 at 12:00; Stop 01/21/17 at 15:59 WESLEY LIRIANO NP January 21, 2017 13:39
[2017-01-21] MEDS: metroNIDAZOLE 500 MG TAB NGT SCH ×2 (14:04→22:21)
[2017-01-21] MEDS: EVAC CONTAINER IVPB SCH (15:51)
[2017-01-21] MEDS: FLUCONAZOLE IVPB SCH (15:51)
[2017-01-21] MEDS: NS 100 MG IVPB SCH (15:51)
[2017-01-21] MEDS ORDERED: hydrALAzine 20 MG INJ IV ONE (16:30)
--- NOTE | 2017-01-21 16:37 | CONS ---
Date/Time of Note Date/Time of Note DATE: 01/21/17 TIME: 16:34 Assessment/Plan Assessment/Plan Additional Assessment/Plan Sepsis Respiratory failure Cellulitis Multivessel coronary artery disease status post CABG Cardiomyopathy with ejection fraction 50% Acute decompensated systolic and diastolic congestive heart failure Paroxysmal atrial fibrillation Diabetes -Patient with elevated blood pressure this afternoon, would monitor trend if medication doses need to be adjusted. Diuretics as per our nephrology colleagues. Continue aspirin and statin therapy. Titrate down amiodarone. Consultation Date/Type/Reason Admit Date/Time January 13, 2017 at 14:21 Type of Consultation: cv 24 HR Interval Summary Free Text/Dictation Denies shortness of breath, chest pain, palpitations Exam/Review of Systems Vital Signs Vitals Vital Signs Date Time Temp Pulse Resp B/P Pulse Ox O2 Delivery O2 Flow Rate FiO2 01/21/17 16:00 73 01/21/17 15:51 98.6 20 170/74 94 01/21/17 13:17 Nasal Cannula 2.0 01/18/17 07:50 30 Intake and Output 01/20/17 01/20/17 01/21/17 15:00 23:00 07:00 Intake Total 1250 ml 300 ml Output Total 4 ml Balance 1246 ml 300 ml Exam No apparent distress Constitutional: alert, oriented Head: normocephalic Respiratory: other (Coarse breath sounds bilaterally, no wheezing) Cardiovascular: other (S1-S2 heard), regular rate and rhythm Gastrointestinal: bowel sounds, non-tender, soft Extremities: edema Results Result Diagram: 01/21/17 0720 01/21/17 0720 Results 24 hrs Laboratory Tests Test 01/20/17 17:25 01/20/17 19:59 01/21/17 01:48 01/21/17 05:27 Bedside Glucose 141 163 150 111 Test 01/21/17 07:20 01/21/17 08:38 01/21/17 12:01 White Blood Count 18.9 H Red Blood Count 3.45 L Hemoglobin 9.8 L Hematocrit 31.2 L Mean Corpuscular Volume 90.4 Mean Corpuscular Hemoglobin 28.4 L Mean Corpuscular Hemoglobin Concent 31.4 L Red Cell Distribution Width 15.1 H Platelet Count 342 Mean Platelet Volume 9.6 Neutrophils % 77.0 Lymphocytes % 12.9 L Monocytes % 7.7 Eosinophils % 0.4 Basophils % 0.6 Nucleated Red Blood Cells % 0.0 Neutrophils # 14.6 H Lymphocytes # 2.4 Monocytes # 1.5 H Eosinophils # 0.1 Basophils # 0.1 Nucleated Red Blood Cells # 0.0 Sodium Level 137 Potassium Level 3.7 Chloride Level 103 Carbon Dioxide Level 31 Anion Gap 7 L Blood Urea Nitrogen 13 Creatinine 0.48 Glucose Level 102 # Calcium Level 7.9 L Phosphorus Level 2.2 L Magnesium Level 1.5 L Bedside Glucose 119 146 Medications Medications Current Medications Aspirin (Aspirin) 81 mg DAILY PO Last administered on 01/21/17 08:42; Admin Dose 81 MG; Start 01/14/17 at 09:00 Atorvastatin Calcium (Lipitor) 40 mg HS PO Last administered on 01/20/17 20:10 ; Admin Dose 40 MG; Start 01/13/17 at 21:00 Metoprolol Tartrate (Lopressor) 25 mg BID PO Last administered on 01/21/17 08: 43; Admin Dose 25 MG; Start 01/13/17 at 21:00 Amiodarone HCl (Cordarone) 200 mg BID PO Last administered on 01/21/17 08:43; Admin Dose 200 MG; Start 01/13/17 at 21:00 Docusate Sodium (Colace) 100 mg Q12H PO Last administered on 01/21/17 08:42; Admin Dose 100 MG; Start 01/13/17 at 19:30 Al Hydrox/Mg Hydrox/Simethicone (Mag-Al Plus) 30 ml Q4H PRN PO GASTROINTESTINAL UPSET; Start 01/13/17 at 19:30 Nitroglycerin (Nitroglycerin (Sl Tab) 0.4 Mg) 1 tab Q5M PRN SL CHEST PAIN; Start 01/13/17 at 19:30 Miscellaneous Information 1 ea NOTE XX ; Start 01/13/17 at 20:00 Glucose (Glutose) 15 gm Q15M PRN PO DECREASED GLUCOSE; Start 01/13/17 at 20:00 Glucose (Glutose) 22.5 gm Q15M PRN PO DECREASED GLUCOSE; Start 01/13/17 at 20:00 Dextrose (D50w Syringe) 25 ml Q15M PRN IV DECREASED GLUCOSE; Start 01/13/17 at 20:00 Dextrose (D50w Syringe) 50 ml Q15M PRN IV DECREASED GLUCOSE; Start 01/13/17 at 20:00 Glucagon (Glucagen) 1 mg Q15M PRN IM DECREASED GLUCOSE; Start 01/13/17 at 20:00 Glucose (Glutose) 15 gm Q15M PRN BUCCAL DECREASED GLUCOSE; Start 01/13/17 at 20: 00 Miscellaneous Information (Pending Santyl Order For Wound Care) This patient panda... PRN PRN XX WOUND CARE; Start 01/14/17 at 11:00 Pantoprazole 40 mg 40 mg DAILY@06 PO Last administered on 01/21/17 05:23; Admin Dose 40 MG; Start 01/15/17 at 06:00 Linezolid 300 ml @ 300 mls/hr Q12 IVPB Last administered on 01/21/17 09:52; Admin Dose 300 MLS/HR; Start 01/17/17 at 22:00 Fluconazole/N/A (Diflucan 200 Mg/ NS (Pmx)/Evac Container) 50 ml @ 50 mls/hr Q24H IVPB Last administered on 01/21/17 15:51; Admin Dose 50 MLS/HR; Start 01/18/17 at 15:00 Mupirocin (Bactroban) 1 applic BID TOP Last administered on 01/21/17 08:44; Admin Dose 1 APPLIC; Start 01/19/17 at 21:00 Enoxaparin Sodium 40 mg 40 mg DAILY SC Last administered on 01/21/17 09:23; Admin Dose 40 MG; Start 01/20/17 at 09:00 Meropenem (Merrem 1 Gm/100 ml (Pmx)) 100 ml @ 200 mls/hr Q12 IVPB Last administered on 01/21/17 08:44; Admin Dose 200 MLS/HR; Start 01/19/17 at 21:00 Acetaminophen (Tylenol Tab) 650 mg Q6H PRN PO PAIN AND OR ELEVATED TEMP Last administered on 01/20/17 03:05; Admin Dose 650 MG; Start 01/20/17 at 03:00 Ibuprofen (Motrin) 400 mg Q6H PRN PO PAIN OR TEMP ABOVE 38C; Start 01/20/17 at 03:00 Furosemide (Lasix) 20 mg DAILY PO Last administered on 01/21/17 08:43; Admin Dose 20 MG; Start 01/20/17 at 09:00 Insulin Detemir (Levemir) 20 unit DAILY@20 SC Last administered on 01/20/17 20 :03; Admin Dose 20 UNIT; Start 01/20/17 at 20:00 Collagenase (Santyl) 1 applic DAILY TOP Last administered on 01/21/17 08:44; Admin Dose 1 APPLIC; Start 01/20/17 at 12:00 Montelukast Sodium (Singulair) 10 mg HS PO Last administered on 01/20/17 20:11 ; Admin Dose 10 MG; Start 01/20/17 at 21:00 Metronidazole (Flagyl) 500 mg Q8 NGT Last administered on 01/21/17 14:04; Admin Dose 500 MG; Start 01/21/17 at 14:00 Manuel Escudero DO January 21, 2017 16:37
[2017-01-21] MEDS ORDERED: LORAZEPAM 2 MG INJ IV ONE (17:00)
[2017-01-21] MEDS ORDERED: METHYLPREDNISOLONE 125 MG INJ ONE (17:06)
[2017-01-21] MEDS: METHYLPREDNISOLONE 125 MG INJ IV SCH ×2 (17:08→23:53)
[2017-01-21] MEDS ORDERED: INSULIN ASPART [NOVOLOG] 3 ML PEN SC SCH (17:25)
[2017-01-21] MEDS ORDERED: ALBUTEROL 0.083% (NEB) 2.5 MG/3 ML AMP HHN PRN (17:30)
[2017-01-21 17:42] LABS: AADO2 Arterial 89.7 mmHg (7.0-24.0); Allen Test ACCEPTAB; Arterial Base Excess 5.7 mmol/L (-3.0-3); Arterial COHb 0.1 % (0.0-3.0); Arterial HCO3 29.4 mmol/L (22.0-26.0); Arterial MetHb 0.2 % (0.0-1.5); Arterial Total Hemglobin 11.6 g/dl (12.0-18.0); MODE NASAL CANNULA
[2017-01-21] MEDS: Insulin NOVOLOG SS MODERATE Algorithm (SS with meals and bedtime) SC SCH ×2 (17:59→20:23)
[2017-01-21] MEDS: MONTELUKAST 10 MG TAB PO SCH (20:19)
[2017-01-21] MEDS: ATORVASTATIN 40 MG TAB PO SCH (20:19)
[2017-01-21] MEDS: INSULIN DETEMIR [LEVEMIR] 3ML CART SC SCH (20:24)
[2017-01-22] VITALS (10 sets, daily range): BP systolic 118–176; BP diastolic 58–78; PULSE 68–80; RESP 17–18
[2017-01-22] MEDS: ALBUTEROL 0.083% (NEB) 2.5 MG/3 ML AMP HHN SCH ×5 (01:00→17:00)
[2017-01-22] MEDS ORDERED: ACCUCHECK AT 2AM (Patients on SS coverage) XX SCH (02:00)
[2017-01-22] MEDS ORDERED: hydrALAzine 20 MG INJ IV PRN (05:00)
[2017-01-22] MEDS: METHYLPREDNISOLONE 125 MG INJ IV SCH ×3 (05:09→17:07)
[2017-01-22] MEDS: metroNIDAZOLE 500 MG TAB NGT SCH ×2 (05:09→13:33)
[2017-01-22] MEDS: PANTOPRAZOLE (EC) 40 MG TAB PO SCH (05:09)
[2017-01-22] MEDS: Insulin NOVOLOG SS MODERATE Algorithm (SS with meals and bedtime) SC SCH ×2 (08:22→12:24)
[2017-01-22] MEDS ORDERED: AMIODARONE 200 MG TAB PO SCH (09:00)
[2017-01-22 09:09] LABS: CALCIUM 8.2 mg/dl (8.4-10.2); CREATININE 0.54 mg/dl (0.44-1.00); MAGNESIUM 1.6 mg/dl (1.7-2.5); PHOSPHORUS 3.5 mg/dl (2.5-4.9); POTASSIUM 3.4 mmol/L (3.5-5.1)
--- NOTE | 2017-01-22 09:13 | PN ---
DATE: 01/22/2017 SUBJECTIVE: The patient is stable. No acute events overnight. No fevers, chills, nausea, vomiting . OBJECTIVE: VITAL SIGNS: Blood pressure is 136/78, respiration 19, pulse 74, temperature 98.8. HEENT: Head is normocephalic. NECK: Supple. HEART: Regular rate. LUNGS: Show diminished breath sounds at the base. ABDOMEN: Soft, nontender to palpation. No rebound or guarding. EXTREMITIES: Negative for clubbing, cyanosis, no edema. DERMATOLOGIC: No rashes. MUSCULOSKELETAL: No joint effusions. NEUROLOGIC: No change in exam. MEDICATIONS: The patient's medications have been reviewed. LABORATORY DATA: From 01/21/2017 was reviewed. 01/22/2017 laboratory data is currently pending. ASSESSMENT AND PLAN: 1. Nonoliguric acute kidney injury with previous baseline creatinine of 0.5 mg/dL. Etiology of acu te kidney injury is secondary to acute tubular necrosis. Renal function has improved. Continue cur rent treatment plan. Continue supportive care, renally dose all meds, avoid nephrotoxins. 2. Hypomagnesemia, hypophosphatemia. Continue to monitor and replete. 3. Volume overload secondary to congestive heart failure, diastolic dysfunction. Continue low-dose diuretic therapy. Monitor electrolytes and renal function closely. 4. Anemia. Continue to monitor H and H levels. 5. Ischemic cardiomyopathy. Continue to monitor. 6. Pneumonia. Continue current antibiotic regimen. 7. Cellulitis. Continue current treatment plan. 8. Hypertension. Continue current blood pressure regimen. 9. History of coronary artery disease status post CABG. Continue medical management. 10. Obesity. Continue dietary modification. 11. Paroxysmal atrial fibrillation. Continue to monitor. Dictated By: BART ALBRIGHT/[place] Conf#: [id number] DID#: [id number]
[2017-01-22] MEDS: METOPROLOL 25 MG TAB PO SCH (09:36)
[2017-01-22] MEDS: ASPIRIN 81 MG TAB PO SCH (09:36)
[2017-01-22] MEDS: FUROSEMIDE 20 MG TAB PO SCH (09:36)
[2017-01-22] MEDS: MUPIROCIN 2% 22 GM OINT TOP SCH (09:37)
[2017-01-22] MEDS: LINEZOLID 600 MG/D5W (PMX) 300 ML IVPB SCH (09:37)
[2017-01-22] MEDS: DOCUSATE SODIUM 100 MG CAP PO SCH (09:37)
[2017-01-22] MEDS: COLLAGENASE 30 GM TUBE TOP SCH (09:37)
[2017-01-22] MEDS: MEROPENEM 1 GM/100 ML (PMX) 100 ML IVPB SCH (09:37)
[2017-01-22] MEDS: ENOXAPARIN 40 MG/0.4 ML SYG SC SCH (09:52)
[2017-01-22] MEDS ORDERED: POTASSIUM CHLORIDE (SR) 20 MEQ TAB PO STA (10:38)
[2017-01-22 10:40] LABS: ADD SCAN DIFF NO
[2017-01-22 10:46] LABS: HEMATOCRIT 35.2 % (37.0-47.0); HEMOGLOBIN 11.1 g/dl (12.0-16.0); MEAN CORPUSCULAR HEMOGLOBIN 28.2 pg (29.0-33.0); MEAN CORPUSCULAR HGB CONC 31.5 g/dl (32.0-37.0); MEAN CORPUSCULAR VOLUME 89.6 fl (82.0-101.0); MEAN PLATELET VOLUME 10.2 fl (7.4-10.4); PLATELET COUNT 344 10^3/UL (140-415); RED BLOOD COUNT 3.93 10^6/ul (4.20-5.40); RED CELL DISTRIBUTION WIDTH 15.1 % (11.5-14.5); WHITE BLOOD COUNT 19.2 10^3/ul (4.8-10.8)
--- NOTE | 2017-01-22 10:49 | DS ---
Date/Time of Note Date/Time of Note DATE: 01/22/17 TIME: 10:47 Discharge Summary Admission/Discharge Info Admit Date/Time January 13, 2017 at 14:21 Discharge Date/Time Final Diagnosis FINAL DIAGNOSES: 1. Shortness of breath, chest pain secondary to acute hypercapnic respiratory failure on BiPAP, also secondary to aspiration pneumonia, treated with antibiotics. 2. Sepsis secondary to left sided persistent pneumonia, aspiration, methicillin -resistant staph aureus cellulitis, status post antibiotic treatment. 3. Left calf wound with MRSA infection, now improved. 4. History of coronary artery bypass grafting on 12/07/2016. 5. Essential hypertension. 6. High cholesterol. 7. Type 2 diabetes with diabetic neuropathy. 8. Chronic depression, stable. 9. Obesity. 10. Nicotine dependency, is counseled cessation. 11. Renal insufficiency, resolved. Time spent discharging patient 50 minutes. Hx of Present Illness This is a very pleasant 66-year-old lady with a past medical history of coronary artery disease, hypertension, dyslipidemia, diabetes mellitus, diabetic neuropathy, major depression, chronic pain syndrome, insomnia , obesity, nicotine dependency who is unfortunately a poor historian for home where managing for 2 different reasons. She complains of chest pain associated with some shortness of breath but has had no fever. She does have chronic cough and that is only occasionally productive of sputum. She has no blood in her sputum. She denies nausea, abdominal pain, dysuria or hematuria. She had a saphenous vein graft done for her CABG, and at the surgical site she has been having oozing and redness suggestive of cellulitis and infection. She is being admitted for both reasons. Hospital Course DATE OF ADMISSION: 01/13/2017 DATE OF DISCHARGE: 01/22/2017 A 66-year-old female originally admitted on 01/13/2017 being discharged to nursing home facility 01/22/2017. HOSPITAL COURSE: The patient came in with chest pain symptoms. She was seen by multiple specialists throughout this hospital stay including a renal team, pulmonary team, infectious disease team, cardiology team. She was actually found with acute hypercapnic respiratory failure. She was placed on BiPAP. There was thought to be an aspiration component as well. She was treated for sepsis as well secondary to pneumonia and also a methicillin-resistant staph aureus cellulitis, initially placed on antibiotics for that. She spent some time in the intensive care unit. Over the course of her hospital stay, her breathing symptoms slowly improved. She was eventually able to be transferred out of the intensive care unit, continued on antibiotics and breathing treatments as well. The patient was also evaluated by our cardiothoracic surgery team as she had undergone a CABG procedure on 12/07/2016, and not on this admission but on a prior admission, so she was monitored for that as far as recovery. Her symptoms slowly improved. She was eventually able to work with physical therapy who recommended nursing home facility placement. The patient's vital signs today are stable. She was able to ambulate and tolerate a p.o. diet. She had slight leukocytosis on the day of discharge, but again no fevers. If she decides to go to nursing home facility today, she will be discharged there today in improved condition. She has also had Bactroban to the nares. DISCHARGE MEDICATIONS: If she goes to today, she will be sent with: 1. Tylenol 650 q.6h. p.r.n. 2. Milk of Magnesia 30 mL p.o. q.4 p.r.n. 3. Proventil nebulizers q.4h. 4. Amiodarone 200 mg b.i.d. 5. Aspirin 81 mg daily. 6. Lipitor 40 mg at bedtime. 7. Santyl apply topically daily. 8. Colace 100 mg q.12h. 9. Lovenox 40 mg subcu daily. 10. Prednisone taper (see med rec sheet) 11. Lasix 20 mg p.o. daily. 12. Motrin 400 mg q.6h. p.r.n. 13. NovoLog insulin sliding scale, moderate. 14. Levemir 20 units subq daily. 15. Flagyl 500 mg PO TID x 7 days 16. Magnesium sulfate 2 grams x1 today. 18. Lopressor 25 mg b.i.d. 19. Singulair 10 mg at bedtime. 20. Bactroban apply topically b.i.d. 21. Nitroglycerin 0.4 mg sublingual every 5 minutes p.r.n. 22. Protonix 40 mg daily. 23. Ambien 5 mg at bedtime p.r.n. FOLLOWUP: She will need to follow up with primary care doctor in the clinic the next 1 to 2 weeks. Home Meds Active Scripts Insulin Detemir (Levemir Flextouch) 100 Unit/1 Ml Insuln.pen, 25 UNIT SC DAILY@ 20 for 1 Day Prov:NAHUM BLAIR MD 12/21/16 Magaldrate/Simethicone* (Mag-Al Plus Suspension*) 30 Ml Oral.susp, 30 ML PO Q4H Y for GASTROINTESTINAL UPSET for 1 Day Prov:NAHUM BLAIR MD 12/21/16 Docusate Sodium (Dok) 100 Mg Capsule, 100 MG PO Q12H Y for CONSTIPATION for 1 Day, CAP Prov:NAHUM BLAIR MD 12/21/16 Montelukast Sodium* (Montelukast Sodium*) 10 Mg Tablet, 10 MG NGT HS for 1 Day, TAB Prov:NAHUM BLAIR MD 12/21/16 Nitroglycerin* (Nitrostat*) 0.4 Mg Tab.subl, 1 TAB SL Q5M Y for CHEST PAIN for 1 Day Prov:NAHUM BLAIR MD 12/21/16 Lisinopril* (Lisinopril*) 5 Mg Tablet, 2.5 MG NGT DAILY for 1 Day, TAB Prov:NAHUM BLAIR MD 12/21/16 Carvedilol* (Carvedilol*) 6.25 Mg Tablet, 6.25 MG PO BID for 1 Day, TAB Prov:NAHUM BLAIR MD 12/21/16 Atorvastatin* (Atorvastatin*) 80 Mg Tablet, 80 MG PO HS for 1 Day, TAB Prov:NAHUM BLAIR MD 12/21/16 Enoxaparin Sodium* (Enoxaparin Sodium*) 30 Mg/0.3 Ml Syringe, 30 MG SC DAILY for 1 Day Prov:NAHUM BLAIR MD 12/21/16 Amiodarone Hcl* (Amiodarone Hcl*) 200 Mg Tablet, 200 MG PO BID for 1 Day, TAB Prov:NAHUM BLAIR MD 12/21/16 Reported Medications Oxycodone HCl/Acetaminophen (Percocet 5-325 mg Tablet) 1 Each Tablet, 1 EACH PO Q4 Y for SEVERE PAIN LEVEL 7-10, TAB 01/13/17 Morphine Sulfate (Morphine Sulfate ER) 30 Mg Cap.er.pel, 30 MG PO TID, CAP 12/02/16 Pregabalin* (Lyrica*) 100 Mg Capsule, 100 MG PO BID, CAP 12/02/16 Duloxetine Hcl* (Cymbalta*) 20 Mg Capsule.dr, 20 MG PO DAILY, CAP 12/02/16 Aspirin (Low Dose Aspirin) 81 Mg Tablet.dr, 81 MG PO DAILY, #30 TAB 12/02/16 Temazepam* (Restoril*) 15 Mg Capsule, 15 MG PO HS Y for INSOMNIA, CAP 12/02/16 Pending Labs Laboratory Tests Test 01/21/17 12:01 01/21/17 17:04 01/21/17 17:12 01/21/17 20:15 Bedside Glucose 146mg/dL (70-220) 186mg/dL (70-220) 185mg/dL (70-220) Blood Gas Specimen Source Blood arterial Arterial Blood Date Drawn 01/21/2017 5:20:40 PM Arterial Blood pH (Temp corrected) 7.490 (7.350-7.450) Arterial Blood pCO2 (Temp correct) 39.5mmhg (35-45) Arterial Blood pO2 (Temp corrected) 77.8mmHG (80-100.0) Arterial Blood HCO3 29.4mmol/L (22.0-26.0) Arterial Blood Base Excess 5.7mmol/L (-3.0-3) Arterial Blood Oxygen Saturation 95.3mmHG (95.0-98.0) Amor Test ACCEPTAB Arterial Blood Gas Puncture Site Left Radial Arterial Blood Carboxyhemoglobin 0.1% (0.0-3.0) Arterial Blood Methemoglobin 0.2% (0.0-1.5) Blood Gas A-a O2 Differential 89.7mmHg (7.0-24.0) Oxyhemoglobin Percent 95.0% (93.0-99.0) Total Hemoglobin 11.6g/dl (12.0-18.0) Blood Gas Temperature 37.0C Blood Gas Modality NASAL CANNULA FiO2 30.0% Blood Gas Notified Whom DT Blood Gas Notified Time 01/21/2017 5:42:25 PM Test 01/22/17 02:24 01/22/17 07:15 01/22/17 08:18 Bedside Glucose 209mg/dL (70-220) 248mg/dL (70-220) Sodium Level 136mmol/L (135-144) Potassium Level 3.4mmol/L (3.5-5.1) Chloride Level 99mmol/L (97-110) Carbon Dioxide Level 30mmol/L (21-31) Anion Gap 10 (8-16) Blood Urea Nitrogen 18mg/dl (7-20) Creatinine 0.54mg/dl (0.44-1.00) Glucose Level 245mg/dl (70-220) Calcium Level 8.2mg/dl (8.4-10.2) Phosphorus Level 3.5mg/dl (2.5-4.9) Magnesium Level 1.6mg/dl (1.7-2.5) EARL SINGLETON. January 22, 2017 10:49
[2017-01-22] MEDS ORDERED: MAGNESIUM SULFATE 1 GM/D5W 100 ML IVPB ONE (11:00)
[2017-01-22 11:18] LABS: LYMPHOCYTES # 1.2 10^3/ul (0.8-2.9); MONOCYTE # 0.2 10^3/ul (0.3-0.9); NEUTROPHIL # 17.9 10^3/ul (1.6-7.5)
[2017-01-22 11:19] LABS: ANISOCYTOSIS 1+; BURR CELLS 1+; POLYCHROMASIA 1+
[2017-01-22] MEDS ORDERED: LISINOPRIL 5 MG TAB PO SCH (12:30)
--- NOTE | 2017-01-22 12:30 | CONS ---
Date/Time of Note Date/Time of Note DATE: 01/22/17 TIME: 12:28 Assessment/Plan Assessment/Plan Additional Assessment/Plan Sepsis Respiratory failure Cellulitis Multivessel coronary artery disease status post CABG Cardiomyopathy with ejection fraction 50% Acute decompensated systolic and diastolic congestive heart failure Paroxysmal atrial fibrillation Diabetes -Blood pressure trend remains elevated, restart IAIN inhibitor given normal renal function. Supplement potassium to maintain above 4.0 and magnesium above 2.0. Continue aspirin, statin and beta-zacarias. Continue amiodarone and titrate down over the next few weeks. DC planning Consultation Date/Type/Reason Admit Date/Time January 13, 2017 at 14:21 Type of Consultation: cv 24 HR Interval Summary Free Text/Dictation Denies shortness of breath, chest pain. Undergoing physical therapy Exam/Review of Systems Vital Signs Vitals Vital Signs Date Time Temp Pulse Resp B/P Pulse Ox O2 Delivery O2 Flow Rate FiO2 01/22/17 12:22 76 01/22/17 11:08 98.4 18 118/58 97 01/22/17 08:45 Nasal Cannula 4.0 01/18/17 07:50 30 Intake and Output 01/21/17 01/21/17 01/22/17 15:00 23:00 07:00 Intake Total 1304.5455 ml 350 ml Balance 1304.5455 ml 350 ml Exam Undergoing physical therapy Constitutional: alert, obese, oriented Head: normocephalic Neck: supple Respiratory: other (Coarse breath sounds bilaterally, no wheezing) Cardiovascular: other (S1-S2 heard), regular rate and rhythm Gastrointestinal: bowel sounds, non-tender, soft Extremities: edema Results Result Diagram: 01/22/17 0715 01/22/17 0715 Results 24 hrs Laboratory Tests Test 01/21/17 17:04 01/21/17 17:12 01/21/17 20:15 01/22/17 02:24 Blood Gas Specimen Source Blood arterial Arterial Blood Date Drawn 01/21/2017 5:20:40 PM Arterial Blood pH (Temp corrected) 7.490 H Arterial Blood pCO2 (Temp correct) 39.5 Arterial Blood pO2 (Temp corrected) 77.8 L Arterial Blood HCO3 29.4 H Arterial Blood Base Excess 5.7 H Arterial Blood Oxygen Saturation 95.3 Amor Test ACCEPTAB Arterial Blood Gas Puncture Site Left Radial Arterial Blood Carboxyhemoglobin 0.1 Arterial Blood Methemoglobin 0.2 Blood Gas A-a O2 Differential 89.7 H Oxyhemoglobin Percent 95.0 Total Hemoglobin 11.6 L Blood Gas Temperature 37.0 Blood Gas Modality NASAL CANNULA FiO2 30.0 Blood Gas Notified Whom DT Blood Gas Notified Time 01/21/2017 5:42:25 PM Bedside Glucose 186 185 209 Test 01/22/17 07:15 01/22/17 08:18 01/22/17 11:50 White Blood Count 19.2 H Red Blood Count 3.93 L Hemoglobin 11.1 L Hematocrit 35.2 L Mean Corpuscular Volume 89.6 Mean Corpuscular Hemoglobin 28.2 L Mean Corpuscular Hemoglobin Concent 31.5 L Red Cell Distribution Width 15.1 H Platelet Count 344 Mean Platelet Volume 10.2 Neutrophils % 93.0 H Lymphocytes % 6.0 L Monocytes % 1.0 Neutrophils # 17.9 H Lymphocytes # 1.2 Monocytes # 0.2 L Polychromasia 1+ Anisocytosis 1+ Sodium Level 136 Potassium Level 3.4 L Chloride Level 99 Carbon Dioxide Level 30 Anion Gap 10 Blood Urea Nitrogen 18 Creatinine 0.54 Glucose Level 245 #H Calcium Level 8.2 L Phosphorus Level 3.5 Magnesium Level 1.6 L Bedside Glucose 248 H 238 H Medications Medications Current Medications Aspirin (Aspirin) 81 mg DAILY PO Last administered on 01/22/17 09:36; Admin Dose 81 MG; Start 01/14/17 at 09:00 Atorvastatin Calcium (Lipitor) 40 mg HS PO Last administered on 01/21/17 20:19 ; Admin Dose 40 MG; Start 01/13/17 at 21:00 Metoprolol Tartrate (Lopressor) 25 mg BID PO Last administered on 01/22/17 09: 36; Admin Dose 25 MG; Start 01/13/17 at 21:00 Docusate Sodium (Colace) 100 mg Q12H PO Last administered on 01/22/17 09:37; Admin Dose 100 MG; Start 01/13/17 at 19:30 Al Hydrox/Mg Hydrox/Simethicone (Mag-Al Plus) 30 ml Q4H PRN PO GASTROINTESTINAL UPSET; Start 01/13/17 at 19:30 Nitroglycerin (Nitroglycerin (Sl Tab) 0.4 Mg) 1 tab Q5M PRN SL CHEST PAIN; Start 01/13/17 at 19:30 Miscellaneous Information 1 ea NOTE XX ; Start 01/13/17 at 20:00 Glucose (Glutose) 15 gm Q15M PRN PO DECREASED GLUCOSE; Start 01/13/17 at 20:00 Glucose (Glutose) 22.5 gm Q15M PRN PO DECREASED GLUCOSE; Start 01/13/17 at 20:00 Dextrose (D50w Syringe) 25 ml Q15M PRN IV DECREASED GLUCOSE; Start 01/13/17 at 20:00 Dextrose (D50w Syringe) 50 ml Q15M PRN IV DECREASED GLUCOSE; Start 01/13/17 at 20:00 Glucagon (Glucagen) 1 mg Q15M PRN IM DECREASED GLUCOSE; Start 01/13/17 at 20:00 Glucose (Glutose) 15 gm Q15M PRN BUCCAL DECREASED GLUCOSE; Start 01/13/17 at 20: 00 Miscellaneous Information (Pending Santyl Order For Wound Care) This patient panda... PRN PRN XX WOUND CARE; Start 01/14/17 at 11:00 Pantoprazole 40 mg 40 mg DAILY@06 PO Last administered on 01/22/17 05:09; Admin Dose 40 MG; Start 01/15/17 at 06:00 Linezolid 300 ml @ 300 mls/hr Q12 IVPB Last administered on 01/22/17 09:37; Admin Dose 300 MLS/HR; Start 01/17/17 at 22:00 Fluconazole/N/A (Diflucan 200 Mg/ NS (Pmx)/Evac Container) 50 ml @ 50 mls/hr Q24H IVPB Last administered on 01/21/17 15:51; Admin Dose 50 MLS/HR; Start 01/18/17 at 15:00 Mupirocin (Bactroban) 1 applic BID TOP Last administered on 01/22/17 09:37; Admin Dose 1 APPLIC; Start 01/19/17 at 21:00 Enoxaparin Sodium 40 mg 40 mg DAILY SC Last administered on 01/22/17 09:52; Admin Dose 40 MG; Start 01/20/17 at 09:00 Meropenem (Merrem 1 Gm/100 ml (Pmx)) 100 ml @ 200 mls/hr Q12 IVPB Last administered on 01/22/17 09:37; Admin Dose 200 MLS/HR; Start 01/19/17 at 21:00 Acetaminophen (Tylenol Tab) 650 mg Q6H PRN PO PAIN AND OR ELEVATED TEMP Last administered on 01/20/17 03:05; Admin Dose 650 MG; Start 01/20/17 at 03:00 Ibuprofen (Motrin) 400 mg Q6H PRN PO PAIN OR TEMP ABOVE 38C; Start 01/20/17 at 03:00 Furosemide (Lasix) 20 mg DAILY PO Last administered on 01/22/17 09:36; Admin Dose 20 MG; Start 01/20/17 at 09:00 Insulin Detemir (Levemir) 20 unit DAILY@20 SC Last administered on 01/21/17 20 :24; Admin Dose 20 UNIT; Start 01/20/17 at 20:00 Collagenase (Santyl) 1 applic DAILY TOP Last administered on 01/22/17 09:37; Admin Dose 1 APPLIC; Start 01/20/17 at 12:00 Montelukast Sodium (Singulair) 10 mg HS PO Last administered on 01/21/17 20:19 ; Admin Dose 10 MG; Start 01/20/17 at 21:00 Metronidazole (Flagyl) 500 mg Q8 NGT Last administered on 01/22/17 05:09; Admin Dose 500 MG; Start 01/21/17 at 14:00 Diagnostic Test (Pha) (Accu-Chek) 1 ea 02 XX ; Start 01/22/17 at 02:00 Amiodarone HCl (Cordarone) 200 mg DAILY PO Last administered on 01/22/17 09:36 ; Admin Dose 200 MG; Start 01/22/17 at 09:00 Methylprednisolone Sodium Succinate (Solu-Medrol) 125 mg Q6 IV Last administered on 01/22/17 11:30; Admin Dose 125 MG; Start 01/21/17 at 17:30 Hydralazine HCl (Apresoline) 10 mg Q4H PRN IV SBP > 160 Last administered on 05:10; Admin Dose 10 MG; Start 01/22/17 at 05:00 Manuel Escudero DO January 22, 2017 12:29
[2017-01-22] MEDS: FLUCONAZOLE IVPB SCH (14:14)
[2017-01-22] MEDS: NS 100 MG IVPB SCH (14:14)
[2017-01-22] MEDS: EVAC CONTAINER IVPB SCH (14:14)
--- NOTE | 2017-01-22 14:41 | CONS ---
Date/Time of Note Date/Time of Note DATE: 01/22/17 TIME: 14:39 Consult Date/Type/Reason Admit Date/Time January 13, 2017 at 14:21 Type of Consultation: Pulmonary ICU Subjective Patient comfortable this morning no new events Objective Vital Signs Date Time Temp Pulse Resp B/P Pulse Ox O2 Delivery O2 Flow Rate FiO2 01/22/17 13:15 94 22 96 Nasal Cannula 3.0 01/22/17 11:08 98.4 118/58 01/18/17 07:50 30 Intake and Output 01/21/17 01/21/17 01/22/17 15:00 23:00 07:00 Intake Total 1304.5455 ml 350 ml Balance 1304.5455 ml 350 ml Exam GENERAL: VITAL SIGNS: per chart NECK: Supple. No JVD or lymphadenopathy. CARDIAC EXAM: S1, S2. No added sounds or murmurs. CHEST: clear bilaterally, No added sounds, rales or wheezes ABDOMEN: Soft, nontender. No guarding or rebound. EXTREMITIES: No cyanosis, clubbing or edema. NEUROLOGIC: Generalized weakness. No focal deficits. Results/Medications Result Diagram: 01/22/17 0715 01/22/17 0715 Results 24 hrs Laboratory Tests Test 01/21/17 17:04 01/21/17 17:12 01/21/17 20:15 01/22/17 02:24 Blood Gas Specimen Source Blood arterial Arterial Blood Date Drawn 01/21/2017 5:20:40 PM Arterial Blood pH (Temp corrected) 7.490 H Arterial Blood pCO2 (Temp correct) 39.5 Arterial Blood pO2 (Temp corrected) 77.8 L Arterial Blood HCO3 29.4 H Arterial Blood Base Excess 5.7 H Arterial Blood Oxygen Saturation 95.3 Amor Test ACCEPTAB Arterial Blood Gas Puncture Site Left Radial Arterial Blood Carboxyhemoglobin 0.1 Arterial Blood Methemoglobin 0.2 Blood Gas A-a O2 Differential 89.7 H Oxyhemoglobin Percent 95.0 Total Hemoglobin 11.6 L Blood Gas Temperature 37.0 Blood Gas Modality NASAL CANNULA FiO2 30.0 Blood Gas Notified Whom DT Blood Gas Notified Time 01/21/2017 5:42:25 PM Bedside Glucose 186 185 209 Test 01/22/17 07:15 01/22/17 08:18 01/22/17 11:50 White Blood Count 19.2 H Red Blood Count 3.93 L Hemoglobin 11.1 L Hematocrit 35.2 L Mean Corpuscular Volume 89.6 Mean Corpuscular Hemoglobin 28.2 L Mean Corpuscular Hemoglobin Concent 31.5 L Red Cell Distribution Width 15.1 H Platelet Count 344 Mean Platelet Volume 10.2 Neutrophils % 93.0 H Lymphocytes % 6.0 L Monocytes % 1.0 Neutrophils # 17.9 H Lymphocytes # 1.2 Monocytes # 0.2 L Polychromasia 1+ Anisocytosis 1+ Sodium Level 136 Potassium Level 3.4 L Chloride Level 99 Carbon Dioxide Level 30 Anion Gap 10 Blood Urea Nitrogen 18 Creatinine 0.54 Glucose Level 245 #H Calcium Level 8.2 L Phosphorus Level 3.5 Magnesium Level 1.6 L Bedside Glucose 248 H 238 H Medications Current Medications Aspirin (Aspirin) 81 mg DAILY PO Last administered on 01/22/17 09:36; Admin Dose 81 MG; Start 01/14/17 at 09:00 Atorvastatin Calcium (Lipitor) 40 mg HS PO Last administered on 01/21/17 20:19 ; Admin Dose 40 MG; Start 01/13/17 at 21:00 Metoprolol Tartrate (Lopressor) 25 mg BID PO Last administered on 01/22/17 09: 36; Admin Dose 25 MG; Start 01/13/17 at 21:00 Docusate Sodium (Colace) 100 mg Q12H PO Last administered on 01/22/17 09:37; Admin Dose 100 MG; Start 01/13/17 at 19:30 Al Hydrox/Mg Hydrox/Simethicone (Mag-Al Plus) 30 ml Q4H PRN PO GASTROINTESTINAL UPSET; Start 01/13/17 at 19:30 Nitroglycerin (Nitroglycerin (Sl Tab) 0.4 Mg) 1 tab Q5M PRN SL CHEST PAIN; Start 01/13/17 at 19:30 Miscellaneous Information 1 ea NOTE XX ; Start 01/13/17 at 20:00 Glucose (Glutose) 15 gm Q15M PRN PO DECREASED GLUCOSE; Start 01/13/17 at 20:00 Glucose (Glutose) 22.5 gm Q15M PRN PO DECREASED GLUCOSE; Start 01/13/17 at 20:00 Dextrose (D50w Syringe) 25 ml Q15M PRN IV DECREASED GLUCOSE; Start 01/13/17 at 20:00 Dextrose (D50w Syringe) 50 ml Q15M PRN IV DECREASED GLUCOSE; Start 01/13/17 at 20:00 Glucagon (Glucagen) 1 mg Q15M PRN IM DECREASED GLUCOSE; Start 01/13/17 at 20:00 Glucose (Glutose) 15 gm Q15M PRN BUCCAL DECREASED GLUCOSE; Start 01/13/17 at 20: 00 Miscellaneous Information (Pending Santyl Order For Wound Care) This patient panda... PRN PRN XX WOUND CARE; Start 01/14/17 at 11:00 Pantoprazole 40 mg 40 mg DAILY@06 PO Last administered on 01/22/17 05:09; Admin Dose 40 MG; Start 01/15/17 at 06:00 Linezolid 300 ml @ 300 mls/hr Q12 IVPB Last administered on 01/22/17 09:37; Admin Dose 300 MLS/HR; Start 01/17/17 at 22:00 Fluconazole/N/A (Diflucan 200 Mg/ NS (Pmx)/Evac Container) 50 ml @ 50 mls/hr Q24H IVPB Last administered on 01/21/17 15:51; Admin Dose 50 MLS/HR; Start 01/18/17 at 15:00 Mupirocin (Bactroban) 1 applic BID TOP Last administered on 01/22/17 09:37; Admin Dose 1 APPLIC; Start 01/19/17 at 21:00 Enoxaparin Sodium 40 mg 40 mg DAILY SC Last administered on 01/22/17 09:52; Admin Dose 40 MG; Start 01/20/17 at 09:00 Meropenem (Merrem 1 Gm/100 ml (Pmx)) 100 ml @ 200 mls/hr Q12 IVPB Last administered on 01/22/17 09:37; Admin Dose 200 MLS/HR; Start 01/19/17 at 21:00 Acetaminophen (Tylenol Tab) 650 mg Q6H PRN PO PAIN AND OR ELEVATED TEMP Last administered on 01/20/17 03:05; Admin Dose 650 MG; Start 01/20/17 at 03:00 Ibuprofen (Motrin) 400 mg Q6H PRN PO PAIN OR TEMP ABOVE 38C; Start 01/20/17 at 03:00 Furosemide (Lasix) 20 mg DAILY PO Last administered on 01/22/17 09:36; Admin Dose 20 MG; Start 01/20/17 at 09:00 Insulin Detemir (Levemir) 20 unit DAILY@20 SC Last administered on 01/21/17 20 :24; Admin Dose 20 UNIT; Start 01/20/17 at 20:00 Collagenase (Santyl) 1 applic DAILY TOP Last administered on 01/22/17 09:37; Admin Dose 1 APPLIC; Start 01/20/17 at 12:00 Montelukast Sodium (Singulair) 10 mg HS PO Last administered on 01/21/17 20:19 ; Admin Dose 10 MG; Start 01/20/17 at 21:00 Metronidazole (Flagyl) 500 mg Q8 NGT Last administered on 01/22/17 13:33; Admin Dose 500 MG; Start 01/21/17 at 14:00 Diagnostic Test (Pha) (Accu-Chek) 1 ea 02 XX ; Start 01/22/17 at 02:00 Amiodarone HCl (Cordarone) 200 mg DAILY PO Last administered on 01/22/17 09:36 ; Admin Dose 200 MG; Start 01/22/17 at 09:00 Methylprednisolone Sodium Succinate (Solu-Medrol) 125 mg Q6 IV Last administered on 01/22/17 11:30; Admin Dose 125 MG; Start 01/21/17 at 17:30 Hydralazine HCl (Apresoline) 10 mg Q4H PRN IV SBP > 160 Last administered on 05:10; Admin Dose 10 MG; Start 01/22/17 at 05:00 Lisinopril (Zestril) 5 mg DAILY PO Last administered on 01/22/17 13:33; Admin Dose 5 MG; Start 01/22/17 at 12:30 Assessment/Plan Chief Complaint/Hosp Course IMPRESSION AND PLAN: 1. Status post Hypercapnic respiratory failure, likely secondary to encephalopathy probably from infection. Congestive cardiac failure combination of systolic and diastolic dysfunction 2. Acute urinary tract infection. 3. Recent coronary artery bypass graft surgery. 4. History of coronary artery disease. 5. History of diabetes mellitus. 6. Left lower lobe pneumonia. Patient will require: 1. Antibiotics, currently on Zyvox. 2. Continue supplemental O2. 3. Noninvasive positive pressure ventilation at night if possible 4. Pulmonary toilet. 5. DVT and GI prophylaxis. 6. Diuretics as tolerated Disposition Agree with half-way facility complete antibiotics Problems: JEFE AGEE MD, FCCP January 22, 2017 14:41
--- NOTE | 2017-01-22 14:47 | CONS ---
Date/Time of Note Date/Time of Note DATE: 01/22/17 TIME: 14:44 Assessment/Plan Assessment/Plan Chief Complaint/Hosp Course SUBJECTIVE: No acute events, alert, feels feels good, no fevers MICROBIOLOGY: Left lower extremity wound culture grew MRSA/Enterococcus/ Corynebact. Urine cx + C alb ANTIMICROBIALS: 1. Zyvox. 2. Merrem. 3. Diflucan PHYSICAL EXAMINATION: GENERAL: This is a morbidly obese, well-developed, elderly woman who is awake, in no distress. HEENT: Head atraumatic, normocephalic. Sclerae are anicteric. Buccal mucosa dry. NECK: Supple, trachea midline. CHEST: Rise symmetrical. Breath sounds clear, diminished to bases. HEART: S1, S2. ABDOMEN: Soft. Bowel tones present. EXTREMITIES: Without cyanosis. ASSESSMENT: 1. S/p sepsis with fevers and leukocytosis/acute encephalopathy. 2. Left lower extremity cellulitis===> resolved. 3. S/p respiratory failure/PNA/UTI 4. Obesity. 6. Diabetes with diabetic neuropathy. 7. MRSA nares colonization PLAN: Stable, with reactive leukocytosis, stool neg for C dif, will dc abx and observe DW staff Problems: Consultation Date/Type/Reason Admit Date/Time January 13, 2017 at 14:21 Type of Consultation: ID Exam/Review of Systems Vital Signs Vitals Vital Signs Date Time Temp Pulse Resp B/P Pulse Ox O2 Delivery O2 Flow Rate FiO2 01/22/17 13:15 94 22 96 Nasal Cannula 3.0 01/22/17 11:08 98.4 118/58 01/18/17 07:50 30 Intake and Output 01/21/17 01/21/17 01/22/17 15:00 23:00 07:00 Intake Total 1304.5455 ml 350 ml Balance 1304.5455 ml 350 ml Results Result Diagram: 01/22/17 0715 01/22/17 0715 Results 24 hrs Laboratory Tests Test 01/21/17 17:04 01/21/17 17:12 01/21/17 20:15 01/22/17 02:24 Blood Gas Specimen Source Blood arterial Arterial Blood Date Drawn 01/21/2017 5:20:40 PM Arterial Blood pH (Temp corrected) 7.490 H Arterial Blood pCO2 (Temp correct) 39.5 Arterial Blood pO2 (Temp corrected) 77.8 L Arterial Blood HCO3 29.4 H Arterial Blood Base Excess 5.7 H Arterial Blood Oxygen Saturation 95.3 Amor Test ACCEPTAB Arterial Blood Gas Puncture Site Left Radial Arterial Blood Carboxyhemoglobin 0.1 Arterial Blood Methemoglobin 0.2 Blood Gas A-a O2 Differential 89.7 H Oxyhemoglobin Percent 95.0 Total Hemoglobin 11.6 L Blood Gas Temperature 37.0 Blood Gas Modality NASAL CANNULA FiO2 30.0 Blood Gas Notified Whom DT Blood Gas Notified Time 01/21/2017 5:42:25 PM Bedside Glucose 186 185 209 Test 01/22/17 07:15 01/22/17 08:18 01/22/17 11:50 White Blood Count 19.2 H Red Blood Count 3.93 L Hemoglobin 11.1 L Hematocrit 35.2 L Mean Corpuscular Volume 89.6 Mean Corpuscular Hemoglobin 28.2 L Mean Corpuscular Hemoglobin Concent 31.5 L Red Cell Distribution Width 15.1 H Platelet Count 344 Mean Platelet Volume 10.2 Neutrophils % 93.0 H Lymphocytes % 6.0 L Monocytes % 1.0 Neutrophils # 17.9 H Lymphocytes # 1.2 Monocytes # 0.2 L Polychromasia 1+ Anisocytosis 1+ Sodium Level 136 Potassium Level 3.4 L Chloride Level 99 Carbon Dioxide Level 30 Anion Gap 10 Blood Urea Nitrogen 18 Creatinine 0.54 Glucose Level 245 #H Calcium Level 8.2 L Phosphorus Level 3.5 Magnesium Level 1.6 L Bedside Glucose 248 H 238 H Medications Medications Current Medications Aspirin (Aspirin) 81 mg DAILY PO Last administered on 01/22/17 09:36; Admin Dose 81 MG; Start 01/14/17 at 09:00 Atorvastatin Calcium (Lipitor) 40 mg HS PO Last administered on 01/21/17 20:19 ; Admin Dose 40 MG; Start 01/13/17 at 21:00 Metoprolol Tartrate (Lopressor) 25 mg BID PO Last administered on 01/22/17 09: 36; Admin Dose 25 MG; Start 01/13/17 at 21:00 Docusate Sodium (Colace) 100 mg Q12H PO Last administered on 01/22/17 09:37; Admin Dose 100 MG; Start 01/13/17 at 19:30 Al Hydrox/Mg Hydrox/Simethicone (Mag-Al Plus) 30 ml Q4H PRN PO GASTROINTESTINAL UPSET; Start 01/13/17 at 19:30 Nitroglycerin (Nitroglycerin (Sl Tab) 0.4 Mg) 1 tab Q5M PRN SL CHEST PAIN; Start 01/13/17 at 19:30 Miscellaneous Information 1 ea NOTE XX ; Start 01/13/17 at 20:00 Glucose (Glutose) 15 gm Q15M PRN PO DECREASED GLUCOSE; Start 01/13/17 at 20:00 Glucose (Glutose) 22.5 gm Q15M PRN PO DECREASED GLUCOSE; Start 01/13/17 at 20:00 Dextrose (D50w Syringe) 25 ml Q15M PRN IV DECREASED GLUCOSE; Start 01/13/17 at 20:00 Dextrose (D50w Syringe) 50 ml Q15M PRN IV DECREASED GLUCOSE; Start 01/13/17 at 20:00 Glucagon (Glucagen) 1 mg Q15M PRN IM DECREASED GLUCOSE; Start 01/13/17 at 20:00 Glucose (Glutose) 15 gm Q15M PRN BUCCAL DECREASED GLUCOSE; Start 01/13/17 at 20: 00 [facility] This patient panda... PRN PRN XX WOUND CARE; Start 01/14/17 at 11:00 Pantoprazole 40 mg 40 mg DAILY@06 PO Last administered on 01/22/17 05:09; Admin Dose 40 MG; Start 01/15/17 at 06:00 Linezolid 300 ml @ 300 mls/hr Q12 IVPB Last administered on 01/22/17 09:37; Admin Dose 300 MLS/HR; Start 01/17/17 at 22:00 Fluconazole/N/A (Diflucan 200 Mg/ NS (Pmx)/Evac Container) 50 ml @ 50 mls/hr Q24H IVPB Last administered on 01/21/17 15:51; Admin Dose 50 MLS/HR; Start 01/18/17 at 15:00 Mupirocin (Bactroban) 1 applic BID TOP Last administered on 01/22/17 09:37; Admin Dose 1 APPLIC; Start 01/19/17 at 21:00 Enoxaparin Sodium 40 mg 40 mg DAILY SC Last administered on 01/22/17 09:52; Admin Dose 40 MG; Start 01/20/17 at 09:00 Meropenem (Merrem 1 Gm/100 ml (Pmx)) 100 ml @ 200 mls/hr Q12 IVPB Last administered on 01/22/17 09:37; Admin Dose 200 MLS/HR; Start 01/19/17 at 21:00 Acetaminophen (Tylenol Tab) 650 mg Q6H PRN PO PAIN AND OR ELEVATED TEMP Last administered on 01/20/17 03:05; Admin Dose 650 MG; Start 01/20/17 at 03:00 Ibuprofen (Motrin) 400 mg Q6H PRN PO PAIN OR TEMP ABOVE 38C; Start 01/20/17 at 03:00 Furosemide (Lasix) 20 mg DAILY PO Last administered on 01/22/17 09:36; Admin Dose 20 MG; Start 01/20/17 at 09:00 Insulin Detemir (Levemir) 20 unit DAILY@20 SC Last administered on 01/21/17 20 :24; Admin Dose 20 UNIT; Start 01/20/17 at 20:00 Collagenase (Santyl) 1 applic DAILY TOP Last administered on 01/22/17 09:37; Admin Dose 1 APPLIC; Start 01/20/17 at 12:00 Montelukast Sodium (Singulair) 10 mg HS PO Last administered on 01/21/17 20:19 ; Admin Dose 10 MG; Start 01/20/17 at 21:00 Metronidazole (Flagyl) 500 mg Q8 NGT Last administered on 01/22/17 13:33; Admin Dose 500 MG; Start 01/21/17 at 14:00 Diagnostic Test (Pha) (Accu-Chek) 1 ea 02 XX ; Start 01/22/17 at 02:00 Amiodarone HCl (Cordarone) 200 mg DAILY PO Last administered on 01/22/17 09:36 ; Admin Dose 200 MG; Start 01/22/17 at 09:00 Methylprednisolone Sodium Succinate (Solu-Medrol) 125 mg Q6 IV Last administered on 01/22/17 11:30; Admin Dose 125 MG; Start 01/21/17 at 17:30 Hydralazine HCl (Apresoline) 10 mg Q4H PRN IV SBP > 160 Last administered on 05:10; Admin Dose 10 MG; Start 01/22/17 at 05:00 Lisinopril (Zestril) 5 mg DAILY PO Last administered on 01/22/17t 13:33; Admin Dose 5 MG; Start 01/22/17 at 12:30 WESLEY LIRIANO NP January 22, 2017 14:47
== END 2017-01-22 17:45 | DRG 862 ==
LOC: E/R 10:22 → TEL 14:21 → ICU 01-17 09:05 → TEL 01-19 14:16
PROVIDERS: ADMIT Family Medicine; ATTEND Family Medicine
PROC: 5A09457 Assistance with Respiratory Ventilation, 24-96 Consecutive Hours, Continuous Positive Airway Pressure (ICD-10-PCS; principal; 2017-01-13)
DX: T81.4XXA Infection following a procedure, initial encounter (principal); A41.9 Sepsis, unspecified organism; N17.0 Acute kidney failure with tubular necrosis; J96.02 Acute respiratory failure with hypercapnia; J69.0 Pneumonitis due to inhalation of food and vomit; I50.43 Acute on chronic combined systolic (congestive) and diastolic (congestive) heart failure; I42.9 Cardiomyopathy, unspecified; E83.42 Hypomagnesemia; L03.313 Cellulitis of chest wall; L03.116 Cellulitis of left lower limb; I48.0 Paroxysmal atrial fibrillation; E11.40 Type 2 diabetes mellitus with diabetic neuropathy, unspecified; E87.6 Hypokalemia; Z95.1 Presence of aortocoronary bypass graft; G89.4 Chronic pain syndrome; E66.9 Obesity, unspecified; Z68.37 Body mass index [BMI] 37.0-37.9, adult; R07.9 Chest pain, unspecified; B95.61 Methicillin susceptible Staphylococcus aureus infection as the cause of diseases classified elsewhere; B95.62 Methicillin resistant Staphylococcus aureus infection as the cause of diseases classified elsewhere
CPT/HCPCS: 36415; 36600; 71010; 71250; 73700; 76775; 80048; 80053; 80076; 80202; 81001; 81003; 82043; 82550; 82553; 82803; 82962; 83605; 83735; 83880; 84100; 84155; 84300; 84439; 84443; 84484; 85025; 85610; 85730; 87040; 87045; 87070; 87075; 87081; 87086; 89190; 92526; 92610; 93005; 93971; 94640; 94660; 95819; 96365; 97110; 97162; 97530; J0360; J0692; J1450; J1650; J1815; J1940; J1953; J1956; J2060; J2185; J2310; J2543; J2930; J3370; J3475; J3480; J7030; J7040; J7042; J7050; P9047

== ENCOUNTER 2019-04-25 12:42 | Inpatient (IN) | payer OTHER ==
[~2019-04-25] VITALS: Ht 165.1 cm; Wt 98.8 kg
[~2019-04-25 12:42] MED LIST changes: -AMIO200T2 PO; +AMIO200T4 PO; -ASPI-664 PO; +ASPI81TA52 PO; +ATOR-2 PO; +ATOR40TA68 PO; -ATOR80TA75 PO; +DULO20CA17 PO; +ERGO2000 PO; +FURO40TA4 PO; +HYDR-3672 PO; +HYDR-3980 PO; -HYDR-902 PO; +HYDR25TA6 PO; +INSU100I12 SQ; +INSU100I27 SQ; +LEVO250T9 PO; +LINA5TAB PO; +LISI-471 PO; +LISI40TA3 PO; +METO-448 PO; +MONT10TA24 PO; -NIT4 SL; +NITR0.4T39 SL; +OXYC-279 PO; +OXYC-431 PO; +TEMA15CA PO; +TIOT18CA INHALATION; +TIZA4TAB PO
[2019-04-25] MEDS ORDERED: SOD CHLORIDE 0.9% 500 ML IV ONE (13:00)
[2019-04-25] MEDS ORDERED: NALOXONE (0.4 MG/ML) INJ IV ONE (14:30)
[2019-04-25] MEDS ORDERED: SOD CHLORIDE 0.9% 1,000 ML IV ONE (14:30)
[2019-04-25] MEDS ORDERED: TIZANIDINE 4 MG TAB PO PRN (15:30)
[2019-04-25] MEDS ORDERED: NACL 0.9% 3 ML SYG IV SCH (15:30)
[2019-04-25] MEDS ORDERED: HYDROCODONE/APAP (5/325) TAB PO PRN (15:30)
[2019-04-25] MEDS ORDERED: DOCUSATE SODIUM 100 MG CAP PO PRN (15:30)
[2019-04-25] MEDS ORDERED: ONDANSETRON 4 MG INJ IV PRN (15:30)
[2019-04-25] MEDS ORDERED: morphine 2 MG INJ IV PRN (15:30)
[2019-04-25] MEDS ORDERED: POTASSIUM CHLORIDE (SR) 20 MEQ TAB PO STA (15:46)
[2019-04-25] MEDS ORDERED: ALBUTEROL/IPRATROPIUM (NEB) 3 ML AMP HHN PRN (16:00)
[2019-04-25] MEDS: SOD CHLORIDE 0.9% 1,000 ML IV SCH (17:17)
[2019-04-25] MEDS ORDERED: GLUCAGON 1 MG INJ IM PRN (18:00)
[2019-04-25] MEDS ORDERED: DEXTROSE 50% 50 ML SYRINGE IV PRN ×2 (18:00)
[2019-04-25] MEDS ORDERED: GLUCOSE GEL 15 GRAM TUBE PO PRN ×2 (18:00)
[2019-04-25] MEDS ORDERED: GLUCOSE GEL 15 GRAM TUBE BUCCAL PRN (18:00)
[2019-04-25 19:55] VITALS: BP 116/58; PULSE 87; RESP 20; Ht 165.1 cm; Wt 98.8 kg
[2019-04-25 20:00] VITALS: BP 116/58; PULSE 87; RESP 20
[2019-04-25] MEDS: ALBUTEROL/IPRATROPIUM (NEB) 3 ML AMP HHN SCH (20:37)
[2019-04-25] MEDS ORDERED: INSULIN DETEMIR [LEVEMIR] 3ML CART SC SCH (21:00)
[2019-04-25] MEDS: MONTELUKAST 10 MG TAB PO SCH (21:50)
[2019-04-25] MEDS: ATORVASTATIN 40 MG TAB PO SCH (21:50)
[2019-04-25] MEDS: HEPARIN 5,000 UNIT/1 ML VIAL SC SCH (21:52)
[2019-04-25] MEDS: INSULIN GLARGINE [LANTus] (100 UNITS/ML) SYG SC SCH (21:53)
[2019-04-25] MEDS ORDERED: LEVOFLOXACIN 500MG/D5W (PMX) 100 ML IVPB SCH (22:00)
[2019-04-25] MEDS: Insulin NOVOLOG SS MILD Algorithm (SS with meals and bedtime) SC SCH (22:24)
[2019-04-25 23:43] VITALS: BP 115/58; PULSE 89; RESP 20
[2019-04-26] MEDS: SOD CHLORIDE 0.9% 1,000 ML IV SCH ×3 (01:52→21:24)
[2019-04-26] MEDS ORDERED: ACCU-CHEK XX SCH (02:00)
[2019-04-26] MEDS: ACCUCHECK 2 AM XX SCH (02:00)
[2019-04-26] MEDS ORDERED: INSULIN ASPART [NOVOLOG] 3 ML PEN SC ONE (03:00)
[2019-04-26] MEDS ORDERED: ACCU-CHEK XX ONE ×2 (03:00→05:00)
[2019-04-26 03:32] VITALS: BP 135/63; PULSE 82; RESP 20
[2019-04-26] MEDS: POTASSIUM CHLORIDE (SR) 20 MEQ TAB PO SCH ×2 (07:51→11:35)
[2019-04-26] MEDS: ALBUTEROL/IPRATROPIUM (NEB) 3 ML AMP HHN SCH ×3 (08:08→20:39)
[2019-04-26] MEDS: Insulin NOVOLOG SS MILD Algorithm (SS with meals and bedtime) SC SCH ×4 (08:17→20:54)
[2019-04-26] MEDS: INSULIN ASPART [NOVOLOG] 3 ML PEN SC SCH ×3 (08:18→17:42)
[2019-04-26] MEDS: TIOTROPIUM 18 MCG CAPSULE INHA DEV INH SCH (11:33)
[2019-04-26] MEDS: DULOXETINE 20 MG CAP DR PO SCH (11:35)
[2019-04-26] MEDS: ASPIRIN (EC) 81 MG TAB PO SCH (11:35)
[2019-04-26 11:48] VITALS: BP 153/70; PULSE 70; RESP 17
[2019-04-26] MEDS: HEPARIN 5,000 UNIT/1 ML VIAL SC SCH ×2 (11:56→21:31)
[2019-04-26] MEDS: LEVOFLOXACIN 250 MG TAB PO SCH (12:01)
[2019-04-26] MEDS: ACETAMINOPHEN 325 MG TAB PO PRN (13:51)
[2019-04-26] MEDS ORDERED: HYDROCODONE/APAP (5/325) TAB PO PRN (15:30)
[2019-04-26 15:44] VITALS: BP 160/69; PULSE 88; RESP 17
[2019-04-26 19:51] VITALS: BP 145/67; PULSE 80; RESP 18
[2019-04-26] MEDS: ATORVASTATIN 40 MG TAB PO SCH (20:43)
[2019-04-26] MEDS: MONTELUKAST 10 MG TAB PO SCH (20:43)
[2019-04-26] MEDS: INSULIN GLARGINE [LANTus] (100 UNITS/ML) SYG SC SCH (21:32)
[2019-04-26] MEDS ORDERED: LEVOFLOXACIN 250MG/D5W (PMX) 50 ML IVPB SCH (22:00)
[2019-04-27] VITALS (7 sets, daily range): BP systolic 121–149; BP diastolic 58–80; PULSE 58–93; RESP 18–20
[2019-04-27] MEDS: ACCUCHECK 2 AM XX SCH (01:50)
[2019-04-27] MEDS ORDERED: INSULIN ASPART [NOVOLOG] 3 ML PEN SC ONE (02:00)
[2019-04-27] MEDS ORDERED: ACCU-CHEK XX ONE (04:00)
[2019-04-27] MEDS: LEVOFLOXACIN 250 MG TAB PO SCH (06:26)
[2019-04-27] MEDS: SOD CHLORIDE 0.9% 1,000 ML IV SCH (07:04)
[2019-04-27] MEDS: ALBUTEROL/IPRATROPIUM (NEB) 3 ML AMP HHN SCH ×3 (08:01→23:24)
[2019-04-27] MEDS ORDERED: MAGNESIUM SULFATE 2 GM/50 ML 50 ML IVPB ONE (08:30)
[2019-04-27] MEDS: ASPIRIN (EC) 81 MG TAB PO SCH (08:53)
[2019-04-27] MEDS: DULOXETINE 20 MG CAP DR PO SCH (08:53)
[2019-04-27] MEDS: TIOTROPIUM 18 MCG CAPSULE INHA DEV INH SCH (08:54)
[2019-04-27] MEDS: INSULIN ASPART [NOVOLOG] 3 ML PEN SC SCH ×3 (09:13→17:50)
[2019-04-27] MEDS: HEPARIN 5,000 UNIT/1 ML VIAL SC SCH (09:13)
[2019-04-27] MEDS: Insulin NOVOLOG SS MILD Algorithm (SS with meals and bedtime) SC SCH ×4 (09:14→21:25)
[2019-04-27] MEDS: ACETAMINOPHEN 325 MG TAB PO PRN (09:16)
[2019-04-27] MEDS ORDERED: KETOROLAC 30 MG INJ IV STA (13:04)
[2019-04-27] MEDS ORDERED: METOCLOPRAMIDE 10 MG INJ IV ONE (13:30)
[2019-04-27] MEDS ORDERED: INSULIN GLARGINE [LANTus] (100 UNITS/ML) SYG SC ONE (13:30)
[2019-04-27] MEDS: LINAGLIPTIN 5 MG TABLET PO SCH (14:12)
[2019-04-27] MEDS: DOCUSATE SODIUM 250 MG CAP PO SCH (14:12)
[2019-04-27] MEDS: CHOLECALCIFEROL 1,000 UNIT TAB PO SCH (14:12)
[2019-04-27] MEDS: ACCU-CHEK XX SCH ×2 (18:24→21:00)
[2019-04-27] MEDS: OXYCODONE/ACETAMINOPHEN (10/325) TAB PO PRN (21:18)
[2019-04-27] MEDS: MONTELUKAST 10 MG TAB PO SCH (21:18)
[2019-04-27] MEDS: ATORVASTATIN 40 MG TAB PO SCH (21:18)
[2019-04-27] MEDS: INSULIN GLARGINE [LANTus] (100 UNITS/ML) SYG SC SCH (21:24)
[2019-04-28] MEDS: ACCUCHECK 2 AM XX SCH (01:44)
[2019-04-28 02:29] VITALS: BP 161/70; PULSE 85; RESP 20
[2019-04-28] MEDS: LEVOFLOXACIN 250 MG TAB PO SCH (05:57)
[2019-04-28] MEDS: ACCU-CHEK XX SCH ×4 (07:00→21:00)
[2019-04-28 07:50] VITALS: BP 125/67; PULSE 82; RESP 18
[2019-04-28] MEDS: INSULIN GLARGINE [LANTus] (100 UNITS/ML) SYG SC SCH (08:19)
[2019-04-28] MEDS: Insulin NOVOLOG SS MILD Algorithm (SS with meals and bedtime) SC SCH ×4 (08:19→21:00)
[2019-04-28] MEDS: INSULIN ASPART [NOVOLOG] 3 ML PEN SC SCH ×3 (08:19→17:30)
[2019-04-28] MEDS: ALBUTEROL/IPRATROPIUM (NEB) 3 ML AMP HHN SCH ×3 (08:47→19:33)
[2019-04-28] MEDS ORDERED: INSULIN GLARGINE [LANTus] (100 UNITS/ML) SYG SC ONE (09:00)
[2019-04-28] MEDS: TIOTROPIUM 18 MCG CAPSULE INHA DEV INH SCH (09:09)
[2019-04-28] MEDS: CHOLECALCIFEROL 1,000 UNIT TAB PO SCH (09:10)
[2019-04-28] MEDS: DULOXETINE 20 MG CAP DR PO SCH (09:10)
[2019-04-28] MEDS: LINAGLIPTIN 5 MG TABLET PO SCH (09:10)
[2019-04-28] MEDS: DOCUSATE SODIUM 250 MG CAP PO SCH (09:10)
[2019-04-28] MEDS: ASPIRIN (EC) 81 MG TAB PO SCH (09:10)
[2019-04-28] MEDS: OXYCODONE/ACETAMINOPHEN (10/325) TAB PO PRN ×2 (09:11→21:58)
[2019-04-28] MEDS: ENOXAPARIN 40 MG/0.4 ML SYG SC SCH (09:14)
[2019-04-28 13:23] VITALS: BP 158/74; PULSE 83; RESP 18
[2019-04-28 19:44] VITALS: BP 142/71; PULSE 81; RESP 18
[2019-04-28] MEDS ORDERED: INSULIN GLARGINE [LANTus] (100 UNITS/ML) SYG SC SCH (21:00)
[2019-04-28] MEDS: MONTELUKAST 10 MG TAB PO SCH (21:58)
[2019-04-28] MEDS: ATORVASTATIN 40 MG TAB PO SCH (21:58)
[2019-04-29 02:00] VITALS: BP 160/75; PULSE 86; RESP 19
[2019-04-29] MEDS: ACCUCHECK 2 AM XX SCH (02:00)
[2019-04-29] MEDS: LEVOFLOXACIN 250 MG TAB PO SCH (05:55)
[2019-04-29 07:25] VITALS: BP 131/63; PULSE 80; RESP 18
[2019-04-29] MEDS: ACCU-CHEK XX SCH ×4 (08:14→21:00)
[2019-04-29] MEDS: Insulin NOVOLOG SS MILD Algorithm (SS with meals and bedtime) SC SCH ×4 (08:33→21:24)
[2019-04-29] MEDS: INSULIN ASPART [NOVOLOG] 3 ML PEN SC SCH ×3 (08:33→17:54)
[2019-04-29] MEDS: INSULIN GLARGINE [LANTus] (100 UNITS/ML) SYG SC SCH (08:34)
[2019-04-29] MEDS: ENOXAPARIN 40 MG/0.4 ML SYG SC SCH (08:34)
[2019-04-29] MEDS: DULOXETINE 20 MG CAP DR PO SCH (08:36)
[2019-04-29] MEDS: ASPIRIN (EC) 81 MG TAB PO SCH (08:36)
[2019-04-29] MEDS: CHOLECALCIFEROL 1,000 UNIT TAB PO SCH (08:36)
[2019-04-29] MEDS: DOCUSATE SODIUM 250 MG CAP PO SCH (08:36)
[2019-04-29] MEDS: LINAGLIPTIN 5 MG TABLET PO SCH (08:37)
[2019-04-29] MEDS: TIOTROPIUM 18 MCG CAPSULE INHA DEV INH SCH (08:37)
[2019-04-29] MEDS: ALBUTEROL/IPRATROPIUM (NEB) 3 ML AMP HHN SCH ×3 (08:54→19:38)
[2019-04-29 13:54] VITALS: BP 134/64; PULSE 85; RESP 18
[2019-04-29] MEDS: OXYCODONE/ACETAMINOPHEN (10/325) TAB PO PRN ×2 (14:42→21:16)
[2019-04-29 21:03] VITALS: BP 144/65; PULSE 86; RESP 18
[2019-04-29] MEDS: ATORVASTATIN 40 MG TAB PO SCH (21:16)
[2019-04-29] MEDS: MONTELUKAST 10 MG TAB PO SCH (21:16)
[2019-04-30 02:00] VITALS: BP 125/60; PULSE 89; RESP 18
[2019-04-30] MEDS: ACCUCHECK 2 AM XX SCH (02:00)
[2019-04-30] MEDS: LEVOFLOXACIN 250 MG TAB PO SCH (06:05)
[2019-04-30] MEDS: ACCU-CHEK XX SCH ×4 (07:00→21:00)
[2019-04-30] MEDS: ALBUTEROL/IPRATROPIUM (NEB) 3 ML AMP HHN SCH ×3 (08:00→20:00)
[2019-04-30 08:08] VITALS: BP 142/63; PULSE 86; RESP 18
[2019-04-30] MEDS: DULOXETINE 20 MG CAP DR PO SCH (08:44)
[2019-04-30] MEDS: LINAGLIPTIN 5 MG TABLET PO SCH (08:44)
[2019-04-30] MEDS: DOCUSATE SODIUM 250 MG CAP PO SCH (08:44)
[2019-04-30] MEDS: CHOLECALCIFEROL 1,000 UNIT TAB PO SCH (08:44)
[2019-04-30] MEDS: ASPIRIN (EC) 81 MG TAB PO SCH (08:44)
[2019-04-30] MEDS: Insulin NOVOLOG SS MILD Algorithm (SS with meals and bedtime) SC SCH ×4 (08:51→21:00)
[2019-04-30] MEDS: INSULIN ASPART [NOVOLOG] 3 ML PEN SC SCH ×3 (08:52→17:38)
[2019-04-30] MEDS: INSULIN GLARGINE [LANTus] (100 UNITS/ML) SYG SC SCH ×2 (08:52→09:00)
[2019-04-30] MEDS: ENOXAPARIN 40 MG/0.4 ML SYG SC SCH (08:53)
[2019-04-30] MEDS: TIOTROPIUM 18 MCG CAPSULE INHA DEV INH SCH (13:35)
[2019-04-30 14:24] VITALS: BP 148/65; PULSE 84; RESP 18
[2019-04-30] MEDS: OXYCODONE/ACETAMINOPHEN (10/325) TAB PO PRN ×2 (15:28→21:22)
[2019-04-30 20:18] VITALS: BP 149/70; PULSE 86; RESP 16
[2019-04-30] MEDS: MONTELUKAST 10 MG TAB PO SCH (21:21)
[2019-04-30] MEDS: ATORVASTATIN 40 MG TAB PO SCH (21:22)
[2019-05-01] MEDS: ACCUCHECK 2 AM XX SCH (02:00)
[2019-05-01 02:28] VITALS: BP 160/76; PULSE 82; RESP 16
[2019-05-01] MEDS: LEVOFLOXACIN 250 MG TAB PO SCH (05:55)
[2019-05-01] MEDS: ACCU-CHEK XX SCH ×2 (07:00→11:30)
[2019-05-01] MEDS: TIOTROPIUM 18 MCG CAPSULE INHA DEV INH SCH (08:25)
[2019-05-01] MEDS: CHOLECALCIFEROL 1,000 UNIT TAB PO SCH (08:27)
[2019-05-01] MEDS: LINAGLIPTIN 5 MG TABLET PO SCH (08:27)
[2019-05-01] MEDS: DOCUSATE SODIUM 250 MG CAP PO SCH (08:27)
[2019-05-01] MEDS: DULOXETINE 20 MG CAP DR PO SCH (08:27)
[2019-05-01] MEDS: ASPIRIN (EC) 81 MG TAB PO SCH (08:27)
[2019-05-01] MEDS: Insulin NOVOLOG SS MILD Algorithm (SS with meals and bedtime) SC SCH ×2 (08:37→12:36)
[2019-05-01] MEDS: ENOXAPARIN 40 MG/0.4 ML SYG SC SCH (08:38)
[2019-05-01] MEDS: INSULIN GLARGINE [LANTus] (100 UNITS/ML) SYG SC SCH (08:38)
[2019-05-01] MEDS: INSULIN ASPART [NOVOLOG] 3 ML PEN SC SCH ×2 (08:38→12:36)
[2019-05-01 09:03] VITALS: BP 150/66; PULSE 82; RESP 18
[2019-05-01] MEDS: ALBUTEROL/IPRATROPIUM (NEB) 3 ML AMP HHN SCH ×2 (09:46→13:50)
[2019-05-01 13:52] VITALS: BP 163/74; PULSE 90; RESP 20
[2019-05-01] MEDS: OXYCODONE/ACETAMINOPHEN (10/325) TAB PO PRN (15:18)
== END 2019-05-01 17:20 | disposition home health service (06) | DRG 194 ==
LOC: E/R 12:42 → 6WM 15:13 → 2NE 04-27 18:16
PROVIDERS: ADMIT Internal Medicine; ATTEND Family Medicine
DX: J18.9 Pneumonia, unspecified organism (principal); N17.9 Acute kidney failure, unspecified; E87.2 Acidosis; I50.32 Chronic diastolic (congestive) heart failure; I11.0 Hypertensive heart disease with heart failure; E11.65 Type 2 diabetes mellitus with hyperglycemia; J44.9 Chronic obstructive pulmonary disease, unspecified; E87.6 Hypokalemia; I25.10 Atherosclerotic heart disease of native coronary artery without angina pectoris; Z95.1 Presence of aortocoronary bypass graft; E78.5 Hyperlipidemia, unspecified; F32.9 Major depressive disorder, single episode, unspecified; Z79.4 Long term (current) use of insulin
CPT/HCPCS: 36415; 36600; 70450; 70551; 71045; 71250; 76775; 80048; 80053; 80061; 81001; 81003; 82306; 82550; 82652; 82803; 82962; 83036; 83605; 83735; 83880; 83970; 84100; 84145; 84436; 84443; 84479; 84484; 85025; 85610; 85730; 86703; 86803; 87086; 87340; 93005; 93306; 94640; 94664; 96374; 97161; J1644; J1650; J1815; J1885; J1956; J2310; J2765; J3475; J7030; J7040